=== PATIENT | male | born 1950 | race Caucasian/White ===

== ENCOUNTER 2018-08-12 11:30 | Inpatient (IN) | payer OTHER ==
--- OUTSIDE RECORDS SUMMARY | 2018-08-12 11:32 | XMS REPORT ---
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 Problem Hyperlipidemia, mixed E78.2 Active Assessment History of CVA (cerebrovascular Z86.73 Active accident) without residual deficits Problem Stented coronary artery Z95.5 Active Assessment Peptic ulcer disease K27.9 Active Problem Depression with anxiety F41.8 Active Problem Prediabetes R73.09 Active Problem Peptic ulcer disease K27.9 Active Problem Gout of right ankle, unspecified M10.9 Active cause, unspecified chronicity Problem Atherosclerosis of coronary artery I25.10 Active of [place] heart Assessment Atherosclerosis of coronary artery I25.10 Active of [place] heart Assessment Peripheral vascular disease I73.9 Active Problem Chronic obstructive pulmonary J44.9 Active disease, unspecified COPD type Assessment Tobacco use disorder F17.200 Active Problem Benign essential HTN I10 Active Problem Peripheral vascular disease I73.9 Active Problem Allergic rhinitis J30.9 Active Problem Hypothyroidism E03.9 Active Assessment Hyperlipidemia, mixed E78.2 Active Assessment Benign essential HTN I10 Active Assessment Depression with anxiety F41.8 Active Assessment Hypothyroidism E03.9 Active Problem Tobacco use disorder F17.200 Active Problem History of CVA (cerebrovascular Z86.73 Active accident) without residual deficits Problem 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 Medications Medication Code Code Instructions Start End Status Dosage System Date Date Allopurinol ND 77751079129 300 MG Orally Active 2 tablet Once a day Albuterol Sulfate ND 13434598264 (2.5 MG/3ML) Active 3 ml as 0.083% needed Inhalation Three times a day Zoloft ND 94679879514 50 MG Orally Active 1 tablet Once a day Levothyroxine Sodium [facility] 59993933423 100 MCG Orally Active 1 tablet Once a day on an empty stomach in the morning ProAir HFA [facility] 56315148376 108 (90 Base) Active 2 puffs MCG/ACT as needed Inhalation every 6 hrs Lipitor [facility] 89686166013 80 MG Orally Active 1 tablet Once a day Aspir-81 [facility] 81899710720 81 MG Orally Active 1 tablet Once a day Amlodipine [facility] 52383971282 10-20 MG Active 1 tab Besy-Benazepril HCl Orally once a day Zantac [facility] 21470867785 150 MG Orally Active 1 tablet Once a day at bedtime Hydrochlorothiazide [facility] 98016088484 25 MG Orally Active 1 tablet Once a day in the morning Nexium [facility] 41983806819 40 MG Orally Active 1 capsule Once a day Results No Known Results Summary Purpose eClinicalWorks Submission
[2018-08-12 12:50] LABS: Absolute Lymphocytes (CBC) 0.3 K/uL (0.7-4.9); Absolute Monocytes 0.5 K/uL (0.1-1.3); Absolute Neutrophil 4.4 K/uL (1.8-8.0); Basophils % 0.1 % (0-1.3); Hematocrit 51.6 % (39.6-49.0); Lymphocytes % 5.6 % (15.3-44.8); MPV 9.7 fL (7.6-11.3); Monocytes % 10.3 % (3.3-12.3); RBC Red Blood Cell Count 5.02 M/uL (4.33-5.43)
[2018-08-12 12:57] LABS: Protime INR 1.04
--- NOTE | 2018-08-12 13:00 | RAD REPORT ---
EXAM DESCRIPTION: Sylviat Single View08/12/2018 12:15 pm CLINICAL HISTORY: Chest pain COMPARISON: 2016 FINDINGS: Mild bilateral interstitial lung opacities. The heart is mildly enlarged. Postsurgical changes involve the chest. IMPRESSION: Mild bilateral pulmonary interstitial lung opacities may represent interstitial pulmonar y edema, atypical pneumonia or pneumonitis
[2018-08-12] MEDS ORDERED: METHYLPREDNISOLONE 125 MG INJ ONE (13:11)
[2018-08-12] MEDS ORDERED: ALBUTEROL 2.5 MG/3 ML NEB SOL ONE (13:11)
[2018-08-12] MEDS ORDERED: IPRATROPIUM BROM 0.5MG/2.5ML ONE (13:11)
[2018-08-12] MEDS ORDERED: LEVALBUTEROL 1.25 MG/3 ML NEB ONE (13:12)
[2018-08-12 13:20] LABS: Albumin 3.5 g/dL (3.4-5.0); Bilirubin Direct 0.3 mg/dL (0-0.2); Bilirubin Total 0.5 mg/dL (0.2-1.0); Magnesium 2.4 mg/dL (1.8-2.4); Potassium 4.6 mmol/L (3.5-5.1); Protein, Total 7.6 g/dL (6.4-8.2)
[2018-08-12 13:30] LABS: Troponin (Emerg Dept Use Only) 3.95 ng/mL (0.0-0.045)
[2018-08-12] MEDS ORDERED: Levofloxacin 750mg IV 750 MG/150 ML BAG IV ONE (13:37)
[2018-08-12] MEDS ORDERED: ENOXAPARIN 80 MG/0.8 ML SQ ONE (13:49)
[2018-08-12 14:36] LABS: CKMB Creatine Kinase MB 25.2 ng/mL (0.3-3.6)
[2018-08-12] MEDS ORDERED: ONDANSETRON 4 MG/2 ML VIAL ONE (15:27)
[2018-08-12] MEDS ORDERED: MORPHINE 4 MG/ML SYR ONE (15:27)
[2018-08-12] MEDS ORDERED: HYDROMORPHONE HCL 1 MG/ML INJ ONE (15:34)
[2018-08-12] MEDS ORDERED: NA CHLORIDE 0.9% 1,000 ML ONE (16:02)
[2018-08-12] MEDS ORDERED: FUROSEMIDE 100 MG/10 ML VIAL IV ONE (16:06)
--- NOTE | 2018-08-12 16:56 | ER ---
Nurse's Notes [facility] Name: Javed Sams Age: 68 yrs Sex: Male : 1950 Arrival Date: 08/12/2018 Time: 11:34 Bed 19 Private MD: Diagnosis: Non-ST elevation (NSTEMI) myocardial infarction;Acute on chronic combined systolic (congestive) and diastolic (congestive) heart failure;Chronic obstructive pulmonary disease with (acute) exacerbation Presentation: 08/12 11:42 Presenting complaint: Patient states: chest pain, dizziness, SOB X 2 days. Transition iw of care: patient was not received from another setting of care. Onset of symptoms was August 10, 2018. Risk Assessment: Do you want to hurt yourself or someone else? Patient reports no desire to harm self or others. Initial Sepsis Screen: Does the patient meet any 2 criteria? No. Patient's initial sepsis screen is negative. Does the patient have a suspected source of infection? No. Patient's initial sepsis screen is negative. Care prior to arrival: None. 11:42 Method Of Arrival: Wheelchair iw 11:42 Acuity: LÓPEZ 2 iw Historical: - Allergies: 11:45 NKA; iw - PMHx: 11:45 COPD; Hypertension; iw - PSHx: 11:45 stents; CABG; iw - Immunization history:: Adult Immunizations up to date. - Social history:: Smoking status: Patient uses tobacco products, smokes one pack cigarettes per day. Patient/guardian denies using alcohol, street drugs, The patient lives with family. - Ebola Screening: : Patient negative for fever greater than or equal to 101.5 degrees Fahrenheit, and additional compatible Ebola Virus Disease symptoms Patient denies exposure to infectious person Patient denies travel to an Ebola-affected area in the 21 days before illness onset No symptoms or risks identified at this time. - Family history:: not pertinent. Screenin:00 Abuse screen: Denies threats or abuse. Denies injuries from another. Nutritional sg screening: No deficits noted. Tuberculosis screening: No symptoms or risk factors identified. Never had TB. Fall Risk None identified. Assessment: 12:10 General: Appears in no apparent distress. ill, slender, well groomed, well developed, sg well nourished, Behavior is calm, cooperative, appropriate for age. Pain: Complains of pain in diaphragm Quality of pain is described as aching, sharp, stabbing. Neuro: No deficits noted. Cardiovascular: Capillary refill is brisk in bilateral fingers Patient's skin is warm and dry. Pulses are palpable in right radial artery and left radial artery Chest pain is denied. Cardiovascular: Heart tones S1 S2 present. Respiratory: Airway is patent Respiratory effort is even, unlabored, Respiratory pattern is regular, symmetrical, Breath sounds with crackles Breath sounds with wheezes bilaterally. GI: No signs and/or symptoms were reported involving the gastrointestinal system. : No signs and/or symptoms were reported regarding the genitourinary system. EENT: No signs and/or symptoms were reported regarding the EENT system. Derm: Skin is intact, is healthy with good turgor, Skin is dry, Skin is pale, Skin temperature is warm. Musculoskeletal: No signs and/or symptoms reported regarding the musculoskeletal system. 13:10 Reassessment: Patient appears in no apparent distress at this time. Patient and/or sg family updated on plan of care and expected duration. Pain level reassessed. Patient is alert, oriented x 3, equal unlabored respirations, skin warm/dry/pink. pt RR continues to be elevated, pt placed to BiPap at this time, pt reports having shortness of breath at rest, notified, pt remains on o2 Via NC at 4 lpm, o2 saturation at 97 percent. 14:10 Reassessment: Patient appears in no apparent distress at this time. Patient and/or sg family updated on plan of care and expected duration. Pain level reassessed. Patient is alert, oriented x 3, equal unlabored respirations, skin warm/dry/pink. pt family remains at bedside at this time, pt states he feels slight pain in his diaphragm, pt HOB elevated, pt reports pain decreased Patient denies pain at this time. Patient states feeling better. 15:10 Reassessment: Patient appears in no apparent distress at this time. Patient and/or sg family updated on plan of care and expected duration. Pain level reassessed. Patient is alert, oriented x 3, equal unlabored respirations, skin warm/dry/pink. Patient denies pain at this time. 15:25 Reassessment: Patient appears in no apparent distress at this time. pt reports BiPap sg has made him feel anxious and short of breath, pt removed, BiPap, educated pt on purpose of BiPap, pt stated understanding, continues to refuse to wear the BiPap at this time. 15:30 Reassessment: pt reports pain in diaphragm is note better at this time, requesting sg paint medication, pt states that Morphine IVP causes hallucinations, notified, New orders received, pt medicated, see EMAR. 16:30 Reassessment: Patient appears in no apparent distress at this time. contacted sg for Admission orders, v/o received for NPO after midnight for Cardiac Cath with , pt updated, pt stated understanding, pt provided with turkey and cheese sandwich, pt required no assistance and tolerating well. 17:30 Reassessment: Patient appears in no apparent distress at this time. Patient and/or sg family updated on plan of care and expected duration. Pain level reassessed. Patient is alert, oriented x 3, equal unlabored respirations, skin warm/dry/pink. Patient denies pain at this time. Patient states feeling better. 19:50 General: Appears in no apparent distress. Behavior is calm, cooperative, appropriate ea for age. Pain: Denies pain. Neuro: No deficits noted. Cardiovascular: Heart tones S1 S2 present Patient's skin is warm and dry. Respiratory: Airway is patent Respiratory effort is even, unlabored, Respiratory pattern is regular, symmetrical, Breath sounds are coarse Breath sounds with crackles. GI: No signs and/or symptoms were reported involving the gastrointestinal system. : No signs and/or symptoms were reported regarding the genitourinary system. Derm: Skin is pink, warm \\T\\ dry. 20:59 Reassessment: Patient and/or family updated on plan of care and expected duration. Pain ea level reassessed. Alert and oriented x 4, Pt denies pain at this time, remains on O2 at 4L, respirations tachypneic, continues to refuse bipap, states "I'm ok with the oxygen". Family remains at bedside. 21:53 Reassessment: Patient and/or family updated on plan of care and expected duration. Pain ea level reassessed. Patient is alert, oriented x 3, equal unlabored respirations, skin warm/dry/pink. Remains on 4 L of O2 per NC Patient denies pain at this time. Patient states feeling better. 22:00 Reassessment: Patient and/or family updated on plan of care and expected duration. Pain ea level reassessed. Patient is alert, oriented x 3, equal unlabored respirations, skin warm/dry/pink. Report given to Harris WATTS on third floor ICU. 22:10 Reassessment: Patient and/or family updated on plan of care and expected duration. Pain ea level reassessed. Patient is alert, oriented x 3, equal unlabored respirations, skin warm/dry/pink. Pt taken to ICU via wheelchair per nurse, with O2 at 4L per n/c, pt tolerating well. Vital Signs: 11:45 BP 124 / 72; Pulse 100; Resp 24 S; Temp 98.3(TE); Pulse Ox 73% on R/A; Weight 56.7 kg; iw Height 5 ft. 7 in. (170.18 cm); Pain 3/10; 12:00 Pulse Ox 91% on 4 lpm NC; iw 14:34 BP 113 / 76; Pulse 90; Resp 30; Temp 98.4; Pulse Ox 97% ; mh5 15:50 BP 85 / 73; Pulse 87; Resp 26; Pulse Ox 86% on 4 lpm NC; mh5 16:20 BP 90 / 73; Pulse 77; Resp 28; Temp 97.1; Pulse Ox 92% ; mh5 17:57 BP 99 / 62; Pulse 74; Resp 24; Temp 98.0(TE); Pulse Ox 96% ; wj1 19:30 BP 110 / 70; Pulse 70; Resp 24; Pulse Ox 99% ; ea 20:45 BP 109 / 68; Pulse 68; Resp 23; Pulse Ox 98% on 4 lpm NC; ea 21:50 BP 100 / 65; Pulse 70; Resp 20; Temp 97.8; Pulse Ox 99% on 4 lpm NC; ea 11:45 Body Mass Index 19.58 (56.70 kg, 170.18 cm) iw ED Course: 11:34 Patient arrived in ED. as 11:43 Triage completed. iw 11:45 Arm band placed on. iw 12:06 Bart Carter, RN is Primary Nurse. sg 12:10 Patient has correct armband on for positive identification. Placed in gown. Bed in low sg position. Call light in reach. Side rails up X2. conveyor monitor on. Pulse ox on. NIBP on. Warm blanket given. Head of bed elevated. 12:11 Jarret Hernandez MD is Attending Physician. ma2 12:14 X-ray completed. Portable x-ray completed in exam room. Patient tolerated procedure az well. 12:15 XRAY Chest (1 view) In Process Unspecified. EDMS 12:15 Initial lab(s) drawn, by me, sent to lab. First set of blood cultures drawn by me. sg Inserted saline lock: 22 gauge in right antecubital area, using aseptic technique. Blood collected. 13:00 First set of blood cultures drawn by me. sg 13:15 Second set of blood cultures drawn by me. sg 13:15 Flu and/or RSV swab sent to lab. 15:44 Troponin (emerg Dept Use Only): 3 hrs trop repeat Sent. [facility] 15:44 Influenza Screen (a \\T\\ B) Sent. [facility] 15:44 Repeat lab(s) drawn. by me, sent to lab. [facility] 16:53 Anjelica Chang MD is Hospitalizing Provider. ga2 17:30 Diet: Patient given snack. Tolerated poorly. sg 19:50 Tiera Flores, STEFANIE is Primary Nurse. ea 19:51 No provider procedures requiring assistance completed. Patient admitted, IV remains in ea place. Administered Medications: 13:15 Drug: Xopenex 1.25 mg Route: Inhalation; sg 13:15 Drug: SOLU-Medrol 125 mg Route: IVP; Site: right antecubital; sg 13:15 Drug: AtroVENT Aerosol 0.5 mg Route: Inhalation; sg 13:15 Drug: Albuterol 2.5 mg Route: Inhalation; sg 13:19 Drug: AtroVENT Aerosol 0.5 mg Route: Inhalation; sg 13:20 Drug: AtroVENT Aerosol 0.5 mg Route: Inhalation; sg 13:30 Drug: LevaQUIN 750 mg Volume: 150 ml; Route: IVPB; Infused Over: 90 mins; Site: right sg antecubital; 13:41 Drug: Lovenox 80 mg Route: Sub-Q; Site: right lower abdomen; sg 14:00 Follow up: Response: No adverse reaction sg 15:30 Drug: Zofran 4 mg Route: IVP; Site: right antecubital; sg 16:30 Follow up: Response: No adverse reaction iw 15:35 Not Given (Other Intervention Used): morphine 4 mg IVP once sg 15:37 Drug: Dilaudid 0.5 mg Route: IVP; Site: right antecubital; sg 16:00 Follow up: Response: Adverse reaction, Physician notified sg 16:59 Drug: Aspirin Chewable Tablet 324 mg Route: PO; sg 17:23 Follow up: Response: No adverse reaction sg 17:58 Not Given (Hemodynamic Parameters): Lasix 60 mg IVP once iw 17:58 Not Given (Hemodynamic Parameters): Nitro-Bid Ointment 2 % 1 inches Transdermal once iw Output: 17:40 Urine: 350ml (Voided); Total: 350ml. sg Outcome: 16:54 Decision to Hospitalize by Provider. ma2 19:00 Condition: stable ea 19:00 Instructed on the need for admit. 22:15 Admitted to ICU accompanied by nurse, via wheelchair, room 2, with oxygen, on monitor, ea with chart, Report called to Harris WATTS 22:26 Patient left the ED. ea Signatures: Dispatcher [employer] EDMS Bart Carter, RN STEFANIE sg Nesha Kwong Irene, RN RN Maryam Kwong 5 Tiera Flores RN RN ea Alzahri, Mohammad, MD MD ma2 Johnson, Whitney wMargot Edwards Corrections: (The following items were deleted from the chart) 11:51 11:45 BP 124 / 72; Pulse 100bpm; Resp 24bpm; Spontaneous; Pulse Ox 82% RA; 56.7 kg; iw Height 5 ft. 7 in.; BMI: 19.5; Pain 3/10; iw 13:50 11:45 BP 124 / 72; Pulse 100bpm; Resp 24bpm; Spontaneous; Pulse Ox 73% RA; 56.7 kg; iw Height 5 ft. 7 in.; BMI: 19.5; Pain 3/10; iw
--- NOTE | 2018-08-12 16:56 | EDPHYS ---
Physician Documentation [facility] Name: Javed Sams Age: 68 yrs Sex: Male : 1950 Arrival Date: 08/12/2018 Time: 11:34 Bed 19 Private MD: ED Physician Jarret Hernandez HPI: 08/12 13:03 This 68 yrs old Male presents to ER via Wheelchair with complaints of ma2 Shortness Of Breath. 13:03 The patient has shortness of breath with light activity. Onset: The symptoms/episode ma2 began/occurred gradually, 2 day(s) ago. Duration: The symptoms are continuous. The patient's shortness of breath has no apparent modifying factors. Associated signs and symptoms: Pertinent positives: productive cough, Pertinent negatives: chest pain, hemoptysis, nausea, numbness in extremities, visual changes. Severity of symptoms: At their worst the symptoms were severe in the emergency department the symptoms are unchanged. The patient has not experienced similar symptoms in the past. Historical: - Allergies: 11:45 NKA; iw - PMHx: 11:45 COPD; Hypertension; iw - PSHx: 11:45 stents; CABG; iw - Immunization history:: Adult Immunizations up to date. - Social history:: Smoking status: Patient uses tobacco products, smokes one pack cigarettes per day. Patient/guardian denies using alcohol, street drugs, The patient lives with family. - Ebola Screening: : Patient negative for fever greater than or equal to 101.5 degrees Fahrenheit, and additional compatible Ebola Virus Disease symptoms Patient denies exposure to infectious person Patient denies travel to an Ebola-affected area in the 21 days before illness onset No symptoms or risks identified at this time. - Family history:: not pertinent. ROS: 13:03 Constitutional: Negative for fever, chills, and weight loss, Eyes: Negative for injury, ma2 pain, redness, and discharge. 13:03 Cardiovascular: Negative for chest pain, palpitations, and edema, Abdomen/GI: Negative for abdominal pain, nausea, diarrhea, and constipation, Back: Negative for injury and pain, Endocrine: Negative for neck swelling, polydipsia, polyuria, polyphagia, and marked weight changes. 13:03 Respiratory: Positive for cough, dyspnea on exertion, shortness of breath, wheezing, Negative for hemoptysis, orthopnea. 13:03 All other systems are negative. Exam: 13:03 Chest/axilla: Normal chest wall appearance and motion. Nontender with no deformity. ma2 No lesions are appreciated. Cardiovascular: Regular rate and rhythm with a normal S1 and S2. No gallops, murmurs, or rubs. Normal PMI, no JVD. No pulse deficits. Abdomen/GI: Soft, non-tender, with normal bowel sounds. No distension or tympany. No guarding or rebound. No evidence of tenderness throughout. MS/ Extremity: Pulses equal, no cyanosis. Neurovascular intact. Full, normal range of motion. Neuro: Awake and alert, GCS 15, oriented to person, place, time, and situation. Cranial nerves II-XII grossly intact. Motor strength 5/5 in all extremities. Sensory grossly intact. Cerebellar exam normal. Normal gait. 13:03 Constitutional: The patient appears in obvious distress, moderately distressed. 13:03 Respiratory: moderate respiratory distress is noted, Respirations: labored breathing, Breath sounds: rhonchi, wheezing: Respiratory rate: 20 Vital Signs: 11:45 BP 124 / 72; Pulse 100; Resp 24 S; Temp 98.3(TE); Pulse Ox 73% on R/A; Weight 56.7 kg; iw Height 5 ft. 7 in. (170.18 cm); Pain 3/10; 12:00 Pulse Ox 91% on 4 lpm NC; iw 14:34 BP 113 / 76; Pulse 90; Resp 30; Temp 98.4; Pulse Ox 97% ; mh5 15:50 BP 85 / 73; Pulse 87; Resp 26; Pulse Ox 86% on 4 lpm NC; mh5 16:20 BP 90 / 73; Pulse 77; Resp 28; Temp 97.1; Pulse Ox 92% ; mh5 17:57 BP 99 / 62; Pulse 74; Resp 24; Temp 98.0(TE); Pulse Ox 96% ; wj1 19:30 BP 110 / 70; Pulse 70; Resp 24; Pulse Ox 99% ; ea 20:45 BP 109 / 68; Pulse 68; Resp 23; Pulse Ox 98% on 4 lpm NC; ea 21:50 BP 100 / 65; Pulse 70; Resp 20; Temp 97.8; Pulse Ox 99% on 4 lpm NC; ea 11:45 Body Mass Index 19.58 (56.70 kg, 170.18 cm) MDM: 12:11 Patient medically screened. ma2 13:03 Differential diagnosis: Anemia asthma, Chronic Obstructive Pulmonary Disease pneumonia, ma2 Pneumothorax pulmonary edema, reactive airway disease, Sepsis. Antibiotic administration: The patient is discharged and will get outpatient antibiotics. 14:14 Data reviewed: vital signs, nurses notes, diagnostic data from outside facility, lab ma2 test result(s), EKG, radiologic studies. ED course: patient has NSTEMI with trop of 4, EKG does not show STEMI, given he had triple CABG many yrs ago and stents.. he will likely need emergent cath.. educational recruiter dr. Jefferson histology assistant paged.. BNP is elevated to 5K CXR w pulmonary edema.. . 16:49 Counseling: I had a detailed discussion with the patient and/or guardian regarding: the ma2 historical points, exam findings, and any diagnostic results supporting the discharge/admit diagnosis, the presence of at least one elevated blood pressure reading (>120/80) during this emergency department visit, the need for further work-up and treatment in the hospital. ED course: discussed with dr. mason who recommend admit for possible cath tomorrow.. discussed with dr. thakkar . 08/12 12:05 Order name: Basic Metabolic Panel; Complete Time: 14:00 08/12 12:05 Order name: CBC with Diff; Complete Time: 13:02 08/12 12:05 Order name: LFT's; Complete Time: 14:00 08/12 12:05 Order name: Magnesium; Complete Time: 14:00 08/12 12:05 Order name: NT PRO-BNP; Complete Time: 14:00 08/12 12:05 Order name: PT-INR; Complete Time: 14:00 08/12 12:05 Order name: Troponin (emerg Dept Use Only); Complete Time: 14:00 08/12 12:45 Order name: Blood Culture Adult (2) ma2 08/12 12:45 Order name: Ckmb; Complete Time: 14:45 [facility] 08/12 12:45 Order name: CPK; Complete Time: 14:45 [facility] 08/12 12:45 Order name: D-Dimer; Complete Time: 14:45 [facility] 08/12 12:45 Order name: Lipase; Complete Time: 14:45 [facility] 08/12 12:45 Order name: Ptt, Activated; Complete Time: 14:45 [facility] 08/12 12:52 Order name: Flu; Complete Time: 14:45 [facility] 08/12 12:05 Order name: XRAY Chest (1 view); Complete Time: 13:02 08/12 14:09 Order name: Influenza Screen (a \T\ B) [facility] 08/12 14:46 Order name: Troponin (emerg Dept Use Only): 3 hrs trop repeat [facility] 08/12 20:24 Order name: Procalcitonin [facility] 08/12 20:59 Order name: Troponin I [facility] 08/12 12:05 Order name: EKG; Complete Time: 12:06 08/12 12:05 Order name: Cardiac monitoring; Complete Time: 13:38 08/12 12:05 Order name: EKG - Nurse/Tech; Complete Time: 13:38 08/12 12:05 Order name: IV Saline Lock; Complete Time: 13:38 08/12 12:05 Order name: Labs collected and sent; Complete Time: 13:38 08/12 12:05 Order name: O2 Per Protocol; Complete Time: 13:38 08/12 12:05 Order name: O2 Sat Monitoring; Complete Time: 13:38 08/12 13:34 Order name: EKG - Nurse/Tech; Complete Time: 13:41 [facility] 08/12 13:41 Order name: EKG; Complete Time: 13:42 08/12 17:20 Order name: CONS Physician Consult [facility] Administered Medications: 13:15 Drug: Xopenex 1.25 mg Route: Inhalation; sg 13:15 Drug: SOLU-Medrol 125 mg Route: IVP; Site: right antecubital; sg 13:15 Drug: AtroVENT Aerosol 0.5 mg Route: Inhalation; sg 13:15 Drug: Albuterol 2.5 mg Route: Inhalation; sg 13:19 Drug: AtroVENT Aerosol 0.5 mg Route: Inhalation; sg 13:20 Drug: AtroVENT Aerosol 0.5 mg Route: Inhalation; sg 13:30 Drug: LevaQUIN 750 mg Volume: 150 ml; Route: IVPB; Infused Over: 90 mins; Site: right sg antecubital; 13:41 Drug: Lovenox 80 mg Route: Sub-Q; Site: right lower abdomen; sg 14:00 Follow up: Response: No adverse reaction sg 15:30 Drug: Zofran 4 mg Route: IVP; Site: right antecubital; sg 16:30 Follow up: Response: No adverse reaction iw 15:35 Not Given (Other Intervention Used): morphine 4 mg IVP once sg 15:37 Drug: Dilaudid 0.5 mg Route: IVP; Site: right antecubital; sg 16:00 Follow up: Response: Adverse reaction, Physician notified sg 16:59 Drug: Aspirin Chewable Tablet 324 mg Route: PO; sg 17:23 Follow up: Response: No adverse reaction sg 17:58 Not Given (Hemodynamic Parameters): Lasix 60 mg IVP once iw 17:58 Not Given (Hemodynamic Parameters): Nitro-Bid Ointment 2 % 1 inches Transdermal once iw Disposition: 08/12/18 16:54 Hospitalization ordered by Anjelica Thakkar for Inpatient Admission. Preliminary diagnosis are Non-ST elevation (NSTEMI) myocardial infarction, Acute on chronic combined systolic (congestive) and diastolic (congestive) heart failure, Chronic obstructive pulmonary disease with (acute) exacerbation. - Bed requested for Intensive Care Unit. - Status is Inpatient Admission. ea - Condition is Guarded. - Problem is chronic. - Symptoms have worsened. UTI on Admission? No Signatures: Dispatcher [employer] EDBart De La Torre RN RN Ct Farrell RN RN iw Solis, Maria ms Antunez, Elena, RN RN ea Alzahri, Mohammad, MD MD ma2 Corrections: (The following items were deleted from the chart) 19:26 16:54 Hospitalization Ordered by Anjelica Thakkar MD for Inpatient Admission. Preliminary ms diagnosis is Non-ST elevation (NSTEMI) myocardial infarction; Acute on chronic combined systolic (congestive) and diastolic (congestive) heart failure; Chronic obstructive pulmonary disease with (acute) exacerbation. Bed requested for Telemetry/MedSurg (Inpatient). Status is Inpatient Admission. Condition is Guarded. Problem is chronic. Symptoms have worsened. UTI on Admission? No. ma2 22:26 19:26 08/12/2018 16:54 Hospitalization Ordered by Anjelica Thakkar MD for Inpatient ea Admission. Preliminary diagnosis is Non-ST elevation (NSTEMI) myocardial infarction; Acute on chronic combined systolic (congestive) and diastolic (congestive) heart failure; Chronic obstructive pulmonary disease with (acute) exacerbation. Bed requested for Intensive Care Unit. Status is Inpatient Admission. Condition is Guarded. Problem is chronic. Symptoms have worsened. UTI on Admission? No. ms
[2018-08-12] MEDS ORDERED: ASPIRIN 81 MG CHEWABLE TABLET ONE (17:11)
--- NOTE | 2018-08-12 17:36 | P.HP ---
Certification for Inpatient Patient admitted to: Inpatient With expected LOS: >2 Midnights Patient will require the following post-hospital care: None Practitioner: I am a practitioner with admitting privileges, knowledge of patient current condition, hospital course, and medical plan of care. Services: Services provided to patient in accordance with Admission requirements found in Title 42 Section 412.3 of the Code of Federal Regulations Patient History Date of Service: 08/12/18 Primary Care Provider: Dr Frank Chang Reason for admission: NSTEMI History of Present Illness: 68 Y/o M with pmhx of COPD, HTN, CAD with CABG in 2016 and stent placement presenting to the ED for SOB and dizziness for past 3 days that is getting progressively worse. Current Everyday smoker. States she noticed she has been having increase SOB with Excretion and unable to lay flat at night. Uses 2 pillows at night time. Has been using inhalers but no improvement. Denies any chest pain, n/V or Fever. Denies any Sick contacts. last Cath was done in 2015 which was + for 3 vessel disease and patient was transfered to for CABG. No other complains. In the ER pt was found to have NSTEMI with elevated Troponin and CHF with elevated BNP and thus was admitted for further workup and treatment. Allergies No Known Allergies Allergy (Verified 09/21/15 13:31) Home medications list reviewed: Yes - Past Medical/Surgical History Has patient received pneumonia vaccine in the past: No -: HTN -: COPD -: CAD with CABG and stent -: CABG -: Stents - Family History Family History: Reviewed- Non-Contributory - Social History Smoking Status: Current every day smoker Counseled patient to stop smoking for: more than 10 minutes Smoking therapy provided: Yes Patient receptive to therapy: No Alcohol use: No CD- Drugs: No Caffeine use: No Place of Residence: Home Review of Systems 10-point ROS is otherwise unremarkable Physical Examination - Physical Exam General: Alert, In no apparent distress HEENT: Atraumatic, PERRLA, Mucous membr. moist/pink, EOMI, Sclerae nonicteric Neck: Supple, 2+ carotid pulse no bruit, No LAD, Without JVD or thyroid abnormality Respiratory: Normal air movement, Expiratory wheezes, Inspiratory wheezes Cardiovascular: Regular rate/rhythm, Normal S1 S2 Gastrointestinal: Normal bowel sounds, No tenderness Musculoskeletal: No tenderness Integumentary: No rashes Neurological: Normal gait, Normal speech, Normal strength at 5/5 x4 extr, Normal tone, Normal affect Lymphatics: No axilla or inguinal lymphadenopathy - Studies Laboratory Data (last 24 hrs) 08/12/18 13:30: APTT 28.3 08/12/18 13:30: Lipase 89 08/12/18 12:35: PT 12.3, INR 1.04 08/12/18 12:35: WBC 5.2, Hgb 18.0 H, Hct 51.6 H, Plt Count 112 L 08/12/18 12:35: Sodium 136, Potassium 4.6, BUN 25 H, Creatinine 0.88, Glucose 160 H, Magnesium 2.4, Total Bilirubin 0.5, AST 77 H, ALT 32, Alkaline Phosphatase 112 Microbiology Data (last 24 hrs): 08/12/18 13:15 Nasopharnyx Influenza Type A Antigen Screen - Final 08/12/18 13:15 Nasopharnyx Influenza Type B Antigen Screen - Final Assessment and Plan - Problems (Diagnosis) (1) NSTEMI (non-ST elevated myocardial infarction) Current Visit: Yes Status: Acute Plan: NSTEMI with elevated Troponin of 3.[address] in [address] ER[address] No [address] elevation on the ekg -Troponin x 3 and cardiac Tele -Cardiology consulted. Reccs Appreciated -Cath cain AM -Started on BB, MIGUEL inhibitor, statin and WB lovenox -Will keep NPO after midnight. -Admit to ICU for further close monitoring. (2) CHF (congestive heart failure) Current Visit: Yes Status: Acute Plan: Acute CHF exacerbation -last ECHO unknown -IV lasix 40mg for now -ECHO ordered -Most likely 2.2 to CAD Qualifiers: Heart failure type: unspecified Heart failure chronicity: acute Qualified Code(s): I50.9 - Heart failure, unspecified (3) COPD exacerbation Current Visit: Yes Status: Acute Plan: COPD exacerbation most likely 2.2 to cardiac event vs Infection -Duonebs, steriods and Oxygen for now (4) HTN (hypertension) Current Visit: Yes Status: Chronic Plan: Restart Home medication Qualifiers: Hypertension type: essential hypertension Qualified Code(s): I10 - Essential (primary) hypertension (5) CAD (coronary artery disease) Current Visit: Yes Status: Chronic Plan: CAD with CABG in 2016 -Restart on CAD medication -Cardiology consulted. Qualifiers: Coronary Disease-Associated Artery/Lesion type: [place] artery [place] vs. transplanted heart: [place] heart Associated angina: without angina Qualified Code(s): I25.10 - Atherosclerotic heart disease of [place] coronary artery without angina pectoris Discharge Plan: Other Plan to discharge in: 72 Hours - Advance Directives Does patient have a Living Will: No Does patient have a Durable POA for Healthcare: Yes - Code Status/Comfort Care Code Status Assessed: Yes Critical Care: Yes
[2018-08-12] MEDS ORDERED: ONDANSETRON 4 MG/2 ML VIAL IV PRN (19:30)
[2018-08-12] MEDS ORDERED: ACETAMINOPHEN 500 MG TAB PO PRN (19:30)
[2018-08-12] MEDS: IPRATROPIUM BROM 0.5MG/2.5ML NEB SCH (20:00)
[2018-08-12] MEDS: ALBUTEROL 2.5 MG/3 ML NEB SOL NEB SCH (20:00)
[2018-08-12] MEDS ORDERED: ENOXAPARIN 100 MG/ML SYR SQ SCH (21:00)
[2018-08-12] MEDS ORDERED: ATORVASTATIN 20 MG TAB PO SCH (21:00)
[2018-08-13] MEDS: IPRATROPIUM BROM 0.5MG/2.5ML NEB SCH ×3 (02:00→14:00)
[2018-08-13] MEDS: ALBUTEROL 2.5 MG/3 ML NEB SOL NEB SCH ×3 (02:00→14:00)
[2018-08-13 06:08] LABS: Absolute Lymphocytes (CBC) 0.5 K/uL (0.7-4.9); Absolute Monocytes 0.7 K/uL (0.1-1.3); Absolute Neutrophil 3.7 K/uL (1.8-8.0); Basophils % 0.4 % (0-1.3); Eosinophils % 0.1 % (0-4.4); Hematocrit 47.5 % (39.6-49.0); Lymphocytes % 9.5 % (15.3-44.8); MPV 9.6 fL (7.6-11.3); Monocytes % 14.7 % (3.3-12.3); RBC Red Blood Cell Count 4.58 M/uL (4.33-5.43)
[2018-08-13 06:21] LABS: Bilirubin Total 0.4 mg/dL (0.2-1.0); Magnesium 2.3 mg/dL (1.8-2.4); Phosphorus 2.7 mg/dL (2.5-4.9); Potassium 5.1 mmol/L (3.5-5.1); Protein, Total 6.6 g/dL (6.4-8.2)
[2018-08-13 06:25] LABS: Troponin I 3.52 ng/mL (0.0-0.045)
[2018-08-13] MEDS: METOPROLOL TAR 25 MG TAB PO SCH (07:54)
[2018-08-13] MEDS: ENOXAPARIN 60 MG/0.6 ML SQ SCH ×2 (07:55→20:00)
[2018-08-13] MEDS: ASPIRIN 81 MG CHEWABLE TABLET PO SCH (07:55)
[2018-08-13] MEDS: LISINOPRIL 5 MG TAB PO SCH (07:55)
[2018-08-13] MEDS ORDERED: Levofloxacin500mg IV 500 MG/100 ML BAG IV SCH (09:00)
[2018-08-13] MEDS ORDERED: FUROSEMIDE 20 MG/ 2ML VIAL IV SCH (09:00)
[2018-08-13] MEDS ORDERED: NICOTINE 21 MG/PAT TD PRN (09:39)
[2018-08-13] MEDS ORDERED: HEPA 1000U/500MLS 1,000 UNIT/500 ML BAG IV ONE ×2 (12:03→12:08)
[2018-08-13] MEDS ORDERED: LIDOCAINE 1% MPF 30 ML VIAL ONE (12:03)
[2018-08-13 12:17] LABS: Urine Appearance CLEAR; Urine Bilirubin NEGATIVE (NEG); Urine Blood NEGATIVE (NEG); Urine Color YELLOW; Urine Glucose NEGATIVE (NEG); Urine Protein NEGATIVE (NEG); Urine Specific Gravity 1.015 (1.005-1.030)
[2018-08-13 12:23] LABS: Urine Microscopic Reflex NO UMIC
[2018-08-13] MEDS ORDERED: NA CHLORIDE 0.9% 500 ML ONE (12:42)
[2018-08-13] MEDS ORDERED: MIDAZOLAM HCL 2 MG/2 ML INJ ONE ×2 (12:54→13:00)
[2018-08-13] MEDS ORDERED: FENTANYL CITR 100 MCG/2 ML ONE (12:54)
[2018-08-13] MEDS ORDERED: ATROPINE SULF 1 MG/10 ML SYR IV ONE (12:54)
[2018-08-13] MEDS ORDERED: NA CHLORIDE 0.9% 0 ML ONE (12:55)
[2018-08-13] MEDS ORDERED: FLUMAZENIL 0.1 MG/ML (5 mL VIAL) IV ONE (13:08)
--- NOTE | 2018-08-13 14:24 | P.PN ---
Subjective Date of Service: 08/13/18 Primary Care Provider: Dr Frank Chang Chief Complaint: NSTEMI Subjective: Other (Patient stable this time. Patient NPO for heart catheterization.) Physical Examination - Vital Signs Temperature: 97.5 F Blood Pressure: 105/66 Pulse: 74 Respirations: 20 Pulse Ox (%): 98 - Physical Exam General: Alert, In no apparent distress, Oriented x3, Cooperative HEENT: Atraumatic Neck: Supple Respiratory: Clear to auscultation bilaterally, Normal air movement Cardiovascular: Normal pulses, Regular rate/rhythm Gastrointestinal: Normal bowel sounds, Soft and benign, Non-distended, No tenderness, No masses, No rebound, No guarding Musculoskeletal: No erythema, No tenderness, No warmth Integumentary: No tenderness/swelling, No erythema, No warmth, No cyanosis Neurological: Normal speech, Normal strength at 5/5 x4 extr, Normal tone - Studies Laboratory Data (last 24 hrs) 08/12/18 13:30: Lipase 89 Microbiology Data (last 24 hrs): 08/12/18 13:15 Nasopharnyx Influenza Type A Antigen Screen - Final 08/12/18 13:15 Nasopharnyx Influenza Type B Antigen Screen - Final Medications List Reviewed: Yes Assessment & Plan Discharge Plan: Home Plan to discharge in: Greater than 2 days Physician Review Additional Text: Impression: Non ST wave [place] with history of CAD complicated with possible underlying acute on chronic systolic CHF Hypertension COPD, chronic Hyperlipidemia Hypothyroidism GERD Plan: Non ST wave [place] with history of CAD complicated with possible underlying acute on chronic systolic CHF: Patient currently NPO at this time. Patient to have heart catheterization today. Patient on aspirin, statin medication, and beta- angela therapy. Patient also on Lovenox. Await further recommendations from cardiology. Will continue with Lasix orally. Will monitor lab and chest x- ray. Will maintain sats above 90%. Hypertension: Continue with current blood pressure medication. Will monitor and adjust appropriately. COPD, chronic: Currently stable this time. Will continue with COPD medication- Brovana, albuterol and Atrovent. Will maintain sats above 90%. Will wean off oxygen. Hyperlipidemia: Will continue with Lipitor 80 mg daily. Hypothyroidism: Will continue with levothyroxine 100 mcg daily. GERD: Continue with PPI. Time Spent Managing Pts Care (In Minutes): 55
--- NOTE | 2018-08-13 14:38 | EKG ---
Test Date: 2018-08-12 Test Time: 13:36:32 Special Education Director: JINNY MEASUREMENT RESULTS: Intervals: Rate: 95 CT: 128 QRSD: 94 QT: 334 QTc: 419 [place]: P: 81 CT: 128 QRS: 95 T: -68 INTERPRETIVE STATEMENTS: Normal sinus rhythm Rightward axis Cannot rule out Inferior infarct, age undetermined ST & T wave abnormality, consider anterolateral ischemia Abnormal ECG Compared to ECG 08/12/2018 12:19:57 Atrial fibrillation no longer present Ventricular premature complex(es) no longer present Myocardial infarct finding still present ST (T wave) deviation still present Possible ischemia still present Electronically Signed On 08-13-18 14:36:06 SALES ENABLEMENT LEAD by William Jefferson
--- NOTE | 2018-08-13 14:38 | EKG ---
Test Date: 2018-08-12 Test Time: 12:19:57 Nutrition Helper: SWG MEASUREMENT RESULTS: Intervals: Rate: 91 [place]: QRSD: 92 QT: 358 QTc: 440 [place]: P: [place]: QRS: 93 T: -73 INTERPRETIVE STATEMENTS: nsr/pvc Rightward axis Cannot rule out Inferior infarct, age undetermined ST & T wave abnormality, consider lateral ischemia Abnormal ECG Compared to ECG 11/06/2007 08:01:26 Ventricular premature complex(es) now present Right-axis deviation now present Myocardial infarct finding now present ST (T wave) deviation now present Possible ischemia now present Sinus bradycardia no longer present Sinus arrhythmia no longer present Electronically Signed On 08-13-18 14:36:40 ROCK MASON APPRENTICE by William Jefferson
[2018-08-13] MEDS ORDERED: NA CHLORIDE 0.9% 1,000 ML IV SCH (15:00)
[2018-08-13] MEDS ORDERED: NITROGLYCERIN 0.4 MG/TAB SL PRN (15:00)
[2018-08-13] MEDS ORDERED: ACETAMINOPHEN 325 MG TABLET PO PRN (15:00)
--- NOTE | 2018-08-13 15:10 | ECHO ---
HEIGHT: 5 ft 7 in WEIGHT: 123 lb 1.6 oz DATE OF STUDY: 08/13/[address]: Anjelica Chang MD 2-DIMENSIONAL: YES M.MODE: YES DOPPLER: YES COLOR FLOW: YES TDS: NO PORTABLE: YES DEFINITY: NO BUBBLE STUDY: NO DIAGNOSIS: NSTEMI CARDIAC HISTORY: CATHERIZATION: YES SURGERY: YES PROSTHETIC VALVE: NO PACEMAKER: NO MEASUREMENTS (cm) DIASTOLIC (NORMALS) SYSTOLIC (NORMALS) IVSd 0.9 (0.6-1.2) LA Diam 2.9 (1.9-4.0) LVEF 45-50% LVIDd 5.0 (3.5-5.7) LVIDs 3.7 (2.0-3.5) %FS 26% LVPWd 1.1 (0.6-1.2) Ao Diam 2.8 (2.0-3.7) 2 DIMENSIONAL ASSESSMENT: RIGHT ATRIUM: NORMAL LEFT ATRIUM: NORMAL RIGHT VENTRICLE: NORMAL LEFT VENTRICLE: NORMAL TRICUSPID VALVE: NORMAL MITRAL VALVE: MITRAL ANNULAR CALCIFICATION PULMONIC VALVE: NORMAL AORTIC VALVE: STENOTIC PERICARDIAL EFFUSION: NONE AORTIC ROOT: NORMAL LEFT VENTRICULAR WALL MOTION: MILD GLOBAL HYPOKINESIS. DOPPLER/COLOR FLOW: MILD TRICUSPID REGURGITATION. NORMAL RIGHT VENTRICULAR SYSTOLIC PRESSURE. MILD AORTIC STENOSIS. AORTIC VALVE AREA 1.7 CENTIMETERS SQUARED. COMMENTS: MILD TRICUSPID REGURGITATION. NORMAL RIGHT VENTRICULAR SYSTOLIC PRESSURE. MILD GLOBAL HYPOKINESIS. LEFT VENTRICULAR EJECTION FRACTION 45-50%. MILD AORTIC STENOSIS. AORTIC VALVE AREA 1.7 CENTIMETERS SQUARED. MITRAL ANNULAR CALCIFICATION. TECHNOLOGIST: Kanchan ASKEW
--- NOTE | 2018-08-13 19:24 | CON ---
Date of Consultation: 08/12/2018 Reason For Consultation: Non-ST elevation myocardial infarction. History Of Present Illness: Mr. Sams is a 68-year-old white man. He is known to me from previous office visits and admissions. In 2016, he underwent a CABG x3 to the LAD, circumflex, and RCA camon mehul to severe coronary artery disease. He came back to the emergency room with severe shortness of breath and dyspnea on exertion. No chest pain, nausea, vomiting, diaphoresis, palpitations, or synco pe. He was found to have a troponin of 4.6. His BNP was 5432. D-dimer was 942. His chest x-ray sh owed pulmonary edema versus infiltrate versus pneumonitis. Past Medical History: Include CABG, COPD, hypertension. Allergies: NONE. Review of Systems: Negative. Social History: Negative for drugs or alcohol. Positive for tobacco and he still smokes. Medications: Include aspirin, Lipitor, and inhalers. Physical Examination: General: Mr. Sams appears much older than his stated age. Vital Signs: Stable. He was in normal rhythm with multiple PACs. He was afebrile. HEENT: Negative. Neck: Supple without any bruit, lymphadenopathy, JVD, or thyromegaly. Chest: Wheezing on expiration and bilateral rales. Cardiac: Revealed a regular rhythm and rate without any murmurs, gallops, or rubs. Abdomen: Benign. Extremities: Revealed no clubbing, cyanosis, or edema. Diagnostic Data: As stated earlier. Impression And Plan: The patient with history of coronary artery disease, status post coronary arter y bypass graft x3. He continues to smoke, probably noncompliant with his medications as well. Came in with shortness of breath and very elevated troponin. We will plan a heart catheterization in the morning to define his coronary anatomy. He understand the risks and the benefits of the procedure an d he agrees to proceed. We will continue present regimen. Hold Lovenox 12 hours prior to the proced ure. His other problems include chronic obstructive pulmonary disease exacerbation and hypertension seems to be stable at this point. We will continue his present regimen. ANTHONY/DANNY Voice ID: [id number] Report ID: [id number]
[2018-08-13] MEDS: ALBUTEROL 2.5 MG/3 ML NEB SOL NEB PRN (19:45)
[2018-08-13] MEDS: ARFORMOTEROL TARTRATE 15 MCG/2 ML VIAL.NEB NEB SCH (19:45)
[2018-08-13] MEDS: IPRATROPIUM BROM 0.5MG/2.5ML NEB PRN (19:45)
[2018-08-13] MEDS: ATORVASTATIN 80 MG TAB PO SCH (20:00)
--- NOTE | 2018-08-13 20:09 | OP ---
Date of Procedure: 08/13/2018 Surgeon: William Jefferson MD Occupational Health And Safety Adviser: Dl Gates. Total conscious sedation was 45 minutes. Case will be discussed with Dr. Chang and the family. Procedures: Left heart catheterization, selective coronary arteriogram, left ventriculogram, injecti on of the left internal mammary artery and injection of saphenous vein graft to the right coronary ar richy and obtuse marginal. Indication: Unstable angina with non-ST elevation myocardial infarction. Mr. Sams is 68, has a history of COPD, tobacco use, hypertension, coronary artery disease status p ost CABG 2 years ago, has done well. Came in with severe shortness of breath, was noted to have an e levated troponin. An echocardiogram is pending. Procedure In Detail: He was brought into the can labeler today for catheterization. He was sedated ini tially with 3 mg of Versed, but he became hypoxic. This was reversed with re-Versed. O2 saturation went up to 100% after non-rebreather. The patient awake. 6-Danish catheters and sheath were used to do the catheterization. 6-Danish sheath introduced in the right common femoral artery. Angiogram t here was normal. Angio-Seal was used to close the case. 6-Danish catheters were used, left Keira and right Keira initially to do the injection for the left main and the right main. We had to use a 3DRC catheter to cannulate the SVG to the OM1 and OM2. The patient had 100% left main, severe, and 100% occlusion of the circumflex, 100% occlusion of the RCA. His JOVEL was occluded. His vein graft to the OM1, OM2 was patent, but the OM1, OM2 distally were very small. The vein graft to the RCA wa s occluded. He was noted to have an 80% stenosis of the left subclavian artery. There were no compl ications. Blood Loss: 5 cc. Postoperative Diagnosis: Severe inoperable coronary artery disease. Plan: For medical therapy. ANTHONY/DANNY Voice ID: [id number] Report ID: [id number]
[2018-08-13] MEDS ORDERED: METHYLPREDNISOLONE 125 MG INJ IV STA (20:38)
[2018-08-13] MEDS ORDERED: METHYLPREDNISOLONE 125 MG INJ ONE (20:45)
[2018-08-13] MEDS: SERTRALINE HCL 50 MG TAB PO SCH (21:32)
[2018-08-14 05:03] LABS: Absolute Lymphocytes (CBC) 0.5 K/uL (0.7-4.9); Absolute Monocytes 0.2 K/uL (0.1-1.3); Absolute Neutrophil 5.2 K/uL (1.8-8.0); Basophils % 0.2 % (0-1.3); Hematocrit 51.2 % (39.6-49.0); Lymphocytes % 8.8 % (15.3-44.8); MPV 9.7 fL (7.6-11.3); Monocytes % 3.8 % (3.3-12.3); RBC Red Blood Cell Count 4.95 M/uL (4.33-5.43)
[2018-08-14 05:31] LABS: Albumin 3.1 g/dL (3.4-5.0); Bilirubin Total 0.5 mg/dL (0.2-1.0); Magnesium 2.6 mg/dL (1.8-2.4); Protein, Total 6.9 g/dL (6.4-8.2)
[2018-08-14] MEDS: PANTOPRAZOLE 40MG TABLET PO SCH (05:44)
[2018-08-14] MEDS: METOPROLOL TAR 25 MG TAB PO SCH (05:44)
[2018-08-14] MEDS: LEVOTHYROXINE SOD 0.1 MG TAB PO SCH (05:44)
[2018-08-14] MEDS: ARFORMOTEROL TARTRATE 15 MCG/2 ML VIAL.NEB NEB SCH ×2 (07:44→20:00)
[2018-08-14] MEDS: IPRATROPIUM BROM 0.5MG/2.5ML NEB PRN ×3 (07:44→20:17)
[2018-08-14] MEDS: ASPIRIN 81 MG CHEWABLE TABLET PO SCH (08:45)
[2018-08-14] MEDS: ALLOPURINOL 300 MG TAB PO SCH (08:46)
[2018-08-14] MEDS: SERTRALINE HCL 50 MG TAB PO SCH (08:46)
[2018-08-14] MEDS: LISINOPRIL 5 MG TAB PO SCH (08:46)
[2018-08-14] MEDS: FUROSEMIDE 40 MG TABLET PO SCH (08:46)
[2018-08-14] MEDS: ENOXAPARIN 60 MG/0.6 ML SQ SCH ×2 (08:47→20:04)
[2018-08-14] MEDS ORDERED: SERTRALINE HCL 50 MG TAB PO SCH (09:00)
--- NOTE | 2018-08-14 09:17 | RAD REPORT ---
EXAM DESCRIPTION: Sylviat Single View08/14/2018 7:25 am CLINICAL HISTORY: Shortness of breath COMPARISON: August 12, 2018 FINDINGS: Mild bilateral interstitial lung opacities have partially resolved. No other change is noted IMPRESSION: Partial resolution in mild bilateral interstitial lung opacities
--- NOTE | 2018-08-14 13:22 | PN ---
Mr. Sams just had a heart catheterization done because of unstable angina, elevated troponin, shor tness of breath, and history of coronary artery disease. He was found to have severe inoperable vitaliy nary artery disease. He had an occluded JOVEL to the LAD, he had an occluded LAD, he had an occluded saphenous vein graft to the RCA as well as [place] RCA. He had a patent OM graft to the to the OM, bu t the distal vessels are small diffusely diseased, not a candidate for other surgery. He was placed on Ranexa 500 mg 1 p.o. b.i.d. He has not had any more chest pain or shortness of breath. He can go home whenever it is okay with his primary care physician. I will see him in the office as an outpat ient. The family is aware of the severity of his conditions. SAVITA Voice ID: [id number] Report ID: [id number]
--- NOTE | 2018-08-14 14:10 | P.PN ---
Subjective Date of Service: 08/14/18 Primary Care Provider: Dr Frank Chang Chief Complaint: NSTEMI Subjective: Other (Patient doing fair at this time. No complaints noted.) Physical Examination - Vital Signs Temperature: 96.9 F Blood Pressure: 110/55 Pulse: 63 Respirations: 18 Pulse Ox (%): 93 - Physical Exam General: Alert, In no apparent distress, Oriented x3, Cooperative HEENT: Atraumatic Neck: Supple Respiratory: Clear to auscultation bilaterally (Anteriorly), Diminished ( Posteriorly to the lower base) Cardiovascular: Normal pulses, Regular rate/rhythm Gastrointestinal: Normal bowel sounds, Soft and benign, Non-distended, No tenderness, No masses, No rebound, No guarding Musculoskeletal: No erythema, No tenderness, No warmth Integumentary: No tenderness/swelling, No erythema, No warmth, No cyanosis Neurological: Normal speech, Normal strength at 5/5 x4 extr, Normal tone - Studies Medications List Reviewed: Yes Assessment & Plan Discharge Plan: Other (nursing home facility) Plan to discharge in: 24 Hours Physician Review Additional Text: Impression: Unstable angina with Non ST wave [place] with history of CAD complicated with mild aortic stenosis and acute on chronic systolic CHF status post heart catheterization with findings of severe inoperable Coronary artery disease Hypertension COPD, chronic Hyperlipidemia Hypothyroidism GERD Plan: Unstable angina with Non ST wave [place] with history of CAD complicated with mild aortic stenosis and acute on chronic systolic CHF status post heart catheterization showing inoperable severe CAD: Patient had heart catheterization done yesterday. Case discussed at length with cardiology. Patient found to have severe inoperable Coronary artery disease. Patient had occluded JOVEL to the LAD, occluded LAD, occluded saphenous graft to the RCA as well as [place] RCA. He also had patent OM graft to the OM, but vessels were diffusely diseased. Cardiology recommends medical therapy. Patient continue with aspirin, statin medication in beta-angela therapy. Patient will also continue with Ranexa twice daily. Case discussed at length with patient. Patient understands this in detail. This was also discussed by Cardiology to family. Will recommend skilled placement. Patient agrees. Will have social economist assess patient for skilled placement. Hypertension: Continue with current blood pressure medication. Will monitor and adjust appropriately. COPD, chronic: Currently stable this time. Will continue with COPD medication- Brovana, albuterol and Atrovent. Will maintain sats above 90%. Will wean off oxygen. Hyperlipidemia: Will continue with Lipitor 80 mg daily. Hypothyroidism: Will continue with levothyroxine 100 mcg daily. GERD: Continue with PPI. Time Spent Managing Pts Care (In Minutes): 55
[2018-08-14] MEDS: ALBUTEROL 2.5 MG/3 ML NEB SOL NEB PRN (16:00)
[2018-08-14] MEDS: ATORVASTATIN 80 MG TAB PO SCH (20:03)
[2018-08-15] MEDS: LEVOTHYROXINE SOD 0.1 MG TAB PO SCH (05:42)
[2018-08-15] MEDS: METOPROLOL TAR 25 MG TAB PO SCH (05:43)
[2018-08-15] MEDS: PANTOPRAZOLE 40MG TABLET PO SCH (05:44)
[2018-08-15 05:49] LABS: Absolute Lymphocytes (CBC) 0.9 K/uL (0.7-4.9); Absolute Monocytes 0.7 K/uL (0.1-1.3); Absolute Neutrophil 4.7 K/uL (1.8-8.0); Hematocrit 47.7 % (39.6-49.0); MPV 9.9 fL (7.6-11.3); Monocytes % 11.6 % (3.3-12.3)
[2018-08-15 06:29] LABS: Albumin 3.1 g/dL (3.4-5.0); Bilirubin Total 0.6 mg/dL (0.2-1.0); Magnesium 2.8 mg/dL (1.8-2.4); Potassium 4.5 mmol/L (3.5-5.1); Protein, Total 6.5 g/dL (6.4-8.2)
[2018-08-15] MEDS: ARFORMOTEROL TARTRATE 15 MCG/2 ML VIAL.NEB NEB SCH (07:41)
[2018-08-15] MEDS: FUROSEMIDE 40 MG TABLET PO SCH (08:47)
[2018-08-15] MEDS: LISINOPRIL 5 MG TAB PO SCH (08:48)
[2018-08-15] MEDS: SERTRALINE HCL 50 MG TAB PO SCH (08:48)
[2018-08-15] MEDS: ENOXAPARIN 60 MG/0.6 ML SQ SCH (08:49)
[2018-08-15] MEDS: ASPIRIN 81 MG CHEWABLE TABLET PO SCH (08:49)
[2018-08-15] MEDS: ALLOPURINOL 300 MG TAB PO SCH (08:49)
[2018-08-15] MEDS ORDERED: ARFORMOTEROL TARTRATE 15 MCG/2 ML VIAL.NEB NEB SCH (10:10)
--- NOTE | 2018-08-15 10:11 | P.CNS ---
Date of Consult: 08/15/18 Primary Care Provider: Dr Frank Chang Chief Complaint: COPD History of Present Illness: Patient is 68 years of age admitted with a NSTEMI elevated troponins and CHF the recent cardiac catheterization shows inoperable coronary artery disease Patient has a history of COPD heavy 1 pack a day smoker uses short-acting bronchodilators at home he denies any chest pain still has some shortness of breath. Scheduled to go to a custodial History of CABG before Allergies No Known Allergies Allergy (Verified 09/21/15 13:31) Home Medications: Albuterol Sulfate [Proair Hfa] 8.5 gm IH Q6H PRN 08/13/18 Allopurinol [Zyloprim] 600 mg PO DAILY 08/13/18 Amlodipine Besylate/Benazepril [Amlodipine-Benazepril 10-40 mg] 1 tab PO DAILY 08/13/18 Atorvastatin Calcium [Lipitor] 80 mg PO BEDTIME 08/13/18 Esomeprazole Mag Trihydrate [Nexium] 40 mg PO DAILY 08/13/18 Levothyroxine [Synthroid] 100 mcg PO [id number] 08/13/18 Ranitidine [Zantac*] 1 tab PO BEDTIME 08/13/18 Sertraline [Zoloft] 50 mg PO DAILY 08/13/18 - Past Medical/Surgical History Diabetic: No -: HTN -: COPD -: CAD with CABG and stent -: CABG -: Stents - Social History Smoking Status: Current every day smoker Alcohol use: Yes CD- Drugs: No Caffeine use: Yes Place of Residence: Home Review of Systems 10-point ROS is otherwise unremarkable General: Weakness Respiratory: Shortness of Breath Physical Examination Temp Pulse Resp BP Pulse Ox 97.2 F 61 20 135/65 94 08/15/18 08:00 08/15/18 08:48 08/15/18 08:00 08/15/18 08:48 08/15/18 08:00 General: Alert, Oriented x3 HEENT: Atraumatic Neck: Supple Respiratory: Clear to auscultation bilaterally, Diminished Cardiovascular: No edema, Normal S1 S2 - Problems (1) COPD (chronic obstructive pulmonary disease) Current Visit: Yes Status: Acute Plan: Patient is 68 years of age admitted with an CA inoperable coronary artery disease history of coronary artery disease status post CABG heavy smoker presumed underlying COPD lead a long-acting bronchodilator at home recommend Anoro. He also qualifies for home O2 console to stops smoking chest x-ray shows some cardiomegaly echocardiogram shows mild global hypokinesis labs reviewed Qualifiers: COPD type: unspecified COPD Qualified Code(s): J44.9 - Chronic obstructive pulmonary disease, unspecified
--- NOTE | 2018-08-15 12:40 | P.DS ---
Admission Date: 08/12/18 Discharge Date: 08/15/18 Primary Care Provider: Dr Frank Chang Disposition: ROUTINE DISCHARGE Discharge Condition: FAIR Reason for Admission: COPD Consultations: Cardiology-Dr. Jefferson Pulmonary-Dr. Stephens Procedures: ECHO: EF 45% LEFT VENTRICULAR WALL MOTION: MILD GLOBAL HYPOKINESIS. DOPPLER/COLOR FLOW: MILD TRICUSPID REGURGITATION. NORMAL RIGHT VENTRICULAR SYSTOLIC PRESSURE. MILD AORTIC STENOSIS. AORTIC VALVE AREA 1.7 CENTIMETERS SQUARED. COMMENTS: MILD TRICUSPID REGURGITATION. NORMAL RIGHT VENTRICULAR SYSTOLIC PRESSURE. MILD GLOBAL HYPOKINESIS. LEFT VENTRICULAR EJECTION FRACTION 45-50%. MILD AORTIC STENOSIS. AORTIC VALVE AREA 1.7 CENTIMETERS SQUARED. MITRAL ANNULAR CALCIFICATION. Heart catheterization: Date of Procedure: 08/13/2018 Surgeon: William Jefferson MD Sample Sewer: Dl Gates. Procedures: Left heart catheterization, selective coronary arteriogram, left ventriculogram, injection of the left internal mammary artery and injection of saphenous vein graft to the right coronary artery and obtuse marginal. Indication: Unstable angina with non-ST elevation myocardial infarction. Procedure In Detail: He was brought into the trestle main[facility] lab[facility] today for catheterization. He was sedated initially with 3 mg of Versed, but he became hypoxic. This was reversed with re-Versed. O2 saturation went up to 100% after non-rebreather. The patient awake. 6-Tuvaluan catheters and sheath were used to do the catheterization. 6-Tu[place]uan sheath introduced in the right common femoral artery. Angiogram there was normal. Angio-Seal was used to close the case. 6-Tuvaluan catheters were used, left Keira and right Keira initially to do the injection for the left main and the right main. We had to use a 3DRC catheter to cannulate the SVG to the OM1 and OM2. The patient had 100% left main, severe, and 100% occlusion of the circumflex, 100% occlusion of the RCA. His JOVEL was occluded. His vein graft to the OM1, OM2 was patent, but the OM1, OM2 distally were very small. The vein graft to the RCA was occluded. He was noted to have an 80% stenosis of the left subclavian artery. There were no complications. Blood Loss: 5 cc. Postoperative Diagnosis: Severe inoperable coronary artery disease. Medical Problem List: Unstable angina with Non ST wave [place] with history of CAD complicated with mild aortic stenosis and acute on chronic systolic CHF status post heart catheterization with findings of severe inoperable Coronary artery disease Hypertension COPD, chronic, oxygen dependent Hyperlipidemia Hypothyroidism GERD Brief History of Present Illness: 68-year-old male present emergency room with increasing shortness of breath and dizziness. Patient with history of CAD, COPD, hypertension, depression, hypothyroidism and tobacco abuse. Patient found to have non ST wave AK. Patient admitted for treatment. Hospital Course: Patient presented with increasing shortness of breath secondary to unstable angina. Patient found to have non ST wave AK. Patient seen and evaluated by Cardiology. Intervention was required. Patient with history of CAD. Echocardiogram showed ejection fraction of 45%. Heart catheterization done findings indicated severe inoperable Coronary artery disease. Medical management was recommended. Cardiology recommended to start Ranexa twice daily. Patient waited for skilled placement. Patient accepted. Patient will go to prison facility prior to going home. At discharge patient will continue with aspirin 81 mg daily, Lipitor 80 mg daily, lisinopril 5 mg 1 pill daily, metoprolol 12.5 mg 1 pill daily, Ranexa 500 mg 1 pill twice daily, Lasix 40 mg 1 pill once daily, and nitro to be use as needed for chest pain. Patient will follow up with cardiology in 2-4 weeks to monitor his progress. Advanced directives address in detail prior to sending the patient to skilled facility. Patient understands his heart condition. Patient wishes to be do not resuscitate. Patient with underlying hypertension. At discharge patient will continue with lisinopril 5 mg daily and metoprolol 12.5 mg daily. Recommendation is to maintain blood pressures less 150/80. Further adjustment can be done by his PCP. Patient has underlying COPD. Patient is oxygen dependent. Patient seen and evaluated by pulmonology. At discharge patient will continue with Anoro one puff once daily, albuterol 2 puffs as needed for shortness of breath. At discharge patient will continue with prednisone 10 mg 1 pill twice daily for 5 days then 1 pill once daily for 5 days. Patient will remain on oxygen to maintain sats above 90%. This may be able to weaned weaned off. Recommendations for the patient follow up with pulmonology in 2-4 weeks to follow up this hospitalization and continue his care. Patient has hypothyroidism. Patient will continue with his medication levothyroxine 100 mcg daily. Patient has GERD. Patient will continue with Protonix 40 mg 1 pill once daily. Patient has depression with anxiety. Patient may continue with Zoloft 50 mg daily Patient with history of tobacco abuse. Tobacco cessation addressed in detail. Patient will continue with nicotine patch daily. Patient with gout. Patient will continue with allopurinol 600 mg daily. Vital Signs/Physical Exam: Temp Pulse Resp BP Pulse Ox 97.2 F 61 20 135/65 94 08/15/18 08:00 08/15/18 08:48 08/15/18 08:00 08/15/18 08:48 08/15/18 08:00 General: Alert, In no apparent distress, Oriented x3, Cooperative HEENT: Atraumatic Neck: Supple Respiratory: Clear to auscultation bilaterally, Normal air movement Cardiovascular: Normal pulses, Regular rate/rhythm Gastrointestinal: Normal bowel sounds, Soft and benign, Non-distended, No tenderness, No masses, No rebound, No guarding Musculoskeletal: No erythema, No tenderness, No warmth Integumentary: No tenderness/swelling, No erythema, No warmth, No cyanosis Neurological: Normal speech, Normal strength at 5/5 x4 extr, Normal tone, Normal affect Lymphatics: No axilla or inguinal lymphadenopathy Laboratory Data at Discharge: WBC 6.3 K/uL (4.3-10.9) 08/15/18 05:26 Hgb 16.6 g/dL (13.6-17.9) 08/15/18 05:26 Hct 47.7 % (39.6-49.0) 08/15/18 05:26 Plt Count 133 K/uL (152-406) L 08/15/18 05:26 PT 12.3 SECONDS (9.5-12.5) 08/12/18 12:35 INR 1.04 08/12/18 12:35 APTT 28.3 SECONDS (24.3-36.9) 08/12/18 13:30 Sodium 141 mmol/L (136-145) 08/15/18 05:26 Potassium 4.5 mmol/L (3.5-5.1) 08/15/18 05:26 BUN 47 mg/dL (7-18) H 08/15/18 05:26 Creatinine 0.86 mg/dL (0.55-1.3) 08/15/18 05:26 Glucose 118 mg/dL (74-106) H 08/15/18 05:26 Phosphorus 2.7 mg/dL (2.5-4.9) 08/13/18 05:01 Magnesium 2.8 mg/dL (1.8-2.4) H 08/15/18 05:26 Total Bilirubin 0.6 mg/dL (0.2-1.0) 08/15/18 05:26 AST 23 U/L (15-37) 08/15/18 05:26 ALT 22 U/L (12-78) 08/15/18 05:26 Alkaline Phosphatase 76 U/L (45-117) 08/15/18 05:26 Troponin I 3.32 ng/mL (0.0-0.045) H* 08/13/18 11:41 Triglycerides 123 mg/dL (<150) 08/13/18 05:01 Cholesterol 98 mg/dL (<200) 08/13/18 05:01 HDL Cholesterol 32 mg/dL (40-60) L 08/13/18 05:01 Cholesterol/HDL Ratio 3.06 08/13/18 05:01 Lipase 89 U/L (73-393) 08/12/18 13:30 Home Medications: Allopurinol [Zyloprim*] 600 mg PO DAILY 08/13/18 Levothyroxine [Synthroid*] 100 mcg PO [id number] 08/13/18 Sertraline [Zoloft*] 50 mg PO DAILY 08/13/18 Albuterol Sulfate [Proair Hfa] 8.5 gm IH TID PRN #1 hfa.aer.ad 08/15/18 Aspirin Chewable [Aspirin Chewable*] 81 mg PO DAILY #90 tab.chew 08/15/18 Atorvastatin Calcium [Lipitor] 80 mg PO BEDTIME #30 tab 08/15/18 Furosemide [Lasix*] 40 mg PO DAILY #30 tab 08/15/18 Lisinopril [Prinivil*] 5 mg PO DAILY #30 tab 08/15/18 Metoprolol Tartrate [Lopressor*] 12.5 mg PO [id number] #30 tab 08/15/18 Nicotine [Nicoderm*] 21 mg TD DAILY PRN #30 patch.td24 08/15/18 Nitroglycerin [Nitrostat*] 1 tab SL SEECOM PRN #30 tab 08/15/18 Pantoprazole [Protonix Tab*] 40 mg PO DAILYAC #30 tab 08/15/18 Umeclidinium Brm/Vilanterol Tr [Anoro Ellipta 62.5-25 Mcg INH] 1 each IH DAILY # 1 blst.w.dev 08/15/18 predniSONE [Deltasone*] 10 mg PO SEECOM #15 tab 08/15/18 New Medications: Albuterol Sulfate [Proair Hfa] 8.5 gm IH TID PRN #1 hfa.aer.ad PRN Reason: Shortness Of Breath Aspirin Chewable [Aspirin Chewable*] 81 mg PO DAILY #90 tab.chew Atorvastatin Calcium [Lipitor] 80 mg PO BEDTIME #30 tab Furosemide [Lasix*] 40 mg PO DAILY #30 tab Lisinopril [Prinivil*] 5 mg PO DAILY #30 tab Metoprolol Tartrate [Lopressor*] 12.5 mg PO [id number] #30 tab Nicotine [Nicoderm*] 21 mg TD DAILY PRN #30 patch.td24 PRN Reason: Agitation Mild Nitroglycerin [Nitrostat*] 1 tab SL SEECOM PRN #30 tab PRN Reason: Chest Pain Pantoprazole [Protonix Tab*] 40 mg PO DAILYAC #30 tab predniSONE [Deltasone*] 10 mg PO SEECOM #15 tab Umeclidinium Brm/Vilanterol Tr [Anoro Ellipta 62.5-25 Mcg INH] 1 each IH DAILY # 1 blst.w.dev Patient Discharge Instructions: 1. Patient will go to prison facility to continue rehabilitation. 2. Patient presented with increasing shortness of breath secondary to unstable angina. Patient found to have non ST wave [place]. Patient seen and evaluated by Cardiology. Intervention was required. Patient with history of CAD. Echocardiogram showed ejection fraction of 45%. Heart catheterization done findings indicated severe inoperable Coronary artery disease. Medical management was recommended. Cardiology recommended to start Ranexa twice daily. Patient waited for skilled placement. Patient accepted. Patient will go to prison facility prior to going home. At discharge patient will continue with aspirin 81 mg daily, Lipitor 80 mg daily, lisinopril 5 mg 1 pill daily, metoprolol 12.5 mg 1 pill daily, Ranexa 500 mg 1 pill twice daily, Lasix 40 mg 1 pill once daily, and nitro to be use as needed for chest pain. Patient will follow up with cardiology in 2-4 weeks to monitor his progress. Advanced directives address in detail prior to sending the patient to skilled facility. Patient understands his heart condition. Patient wishes to be do not resuscitate. 3. Patient with underlying hypertension. At discharge patient will continue with lisinopril 5 mg daily and metoprolol 12.5 mg daily. Recommendation is to maintain blood pressures less 150/80. Further adjustment can be done by his PCP. 4. Patient has underlying COPD. Patient is oxygen dependent. Patient seen and evaluated by pulmonology. At discharge patient will continue with Anoro one puff once daily, albuterol 2 puffs as needed for shortness of breath. At discharge patient will continue with prednisone 10 mg 1 pill twice daily for 5 days then 1 pill once daily for 5 days. Patient will remain on oxygen to maintain sats above 90%. This may be able to weaned weaned off. Recommendations for the patient follow up with pulmonology in 2-4 weeks to follow up this hospitalization and continue his care. 5. Patient has hypothyroidism. Patient will continue with his medication levothyroxine 100 mcg daily. 6. Patient has GERD. Patient will continue with Protonix 40 mg 1 pill once daily. 7. Patient has depression with anxiety. Patient may continue with Zoloft 50 mg daily. 8. Patient with history of tobacco abuse. Tobacco cessation addressed in detail. Patient will continue with nicotine patch daily. 9. Patient with gout. Patient will continue with allopurinol 600 mg daily. Diet: AHA Activity: Fall precautions Followup: Nam Stephens MD [ACTIVE - CAN ADMIT] - Time spent managing pt's care (in minutes): 55
[2018-08-15] MEDS ORDERED: predniSONE 10 MG TAB PO SCH (21:00)
[2018-08-16] MEDS ORDERED: ENOXAPARIN 40 MG/0.4 ML SQ SCH (09:00)
== END 2018-08-15 16:20 | DRG 280 ==
LOC: ER 11:30 → ERHOLD 17:18 → 3RD-ICU 22:03 → 2ND 08-14 05:00
PROVIDERS: ADMIT Family Medicine; ATTEND Family Medicine
PROC: 4A023N7 Measurement of Cardiac Sampling and Pressure, Left Heart, Percutaneous Approach (ICD-10-PCS; principal; 2018-08-13)
PROC: B211YZZ Fluoroscopy of Multiple Coronary Arteries using Other Contrast (ICD-10-PCS; 2018-08-13)
PROC: B213YZZ Fluoroscopy of Multiple Coronary Artery Bypass Grafts using Other Contrast (ICD-10-PCS; 2018-08-13)
PROC: B215YZZ Fluoroscopy of Left Heart using Other Contrast (ICD-10-PCS; 2018-08-13)
DX: I21.4 Non-ST elevation (NSTEMI) myocardial infarction (principal); I50.23 Acute on chronic systolic (congestive) heart failure; J44.1 Chronic obstructive pulmonary disease with (acute) exacerbation; I11.0 Hypertensive heart disease with heart failure; E78.5 Hyperlipidemia, unspecified; E03.9 Hypothyroidism, unspecified; K21.9 Gastro-esophageal reflux disease without esophagitis; F32.9 Major depressive disorder, single episode, unspecified; F17.210 Nicotine dependence, cigarettes, uncomplicated; Z66 Do not resuscitate; F41.9 Anxiety disorder, unspecified; M10.9 Gout, unspecified; Z95.1 Presence of aortocoronary bypass graft; Z95.5 Presence of coronary angioplasty implant and graft; I25.110 Atherosclerotic heart disease of native coronary artery with unstable angina pectoris; I25.720 Atherosclerosis of autologous artery coronary artery bypass graft(s) with unstable angina pectoris; I25.710 Atherosclerosis of autologous vein coronary artery bypass graft(s) with unstable angina pectoris; I25.82 Chronic total occlusion of coronary artery; I35.0 Nonrheumatic aortic (valve) stenosis
CPT/HCPCS: 36415; 71045; 80048; 80053; 80061; 80076; 81003; 82550; 82553; 83690; 83735; 83880; 84100; 84132; 84145; 84484; 85025; 85379; 85610; 85730; 87040; 87804; 93005; 93306; 93459; 94640; 94660; 96372; 96374; 96375; 97110; 97162; 97530; 99285; C1893; J0583; J1170; J1650; J1940; J2250; J2405; J2930; J3010; J7030; J7605

== ENCOUNTER 2019-07-06 15:01 | Inpatient (IN) | payer OTHER ==
--- OUTSIDE RECORDS SUMMARY | 2019-07-06 15:03 | XMS REPORT ---
:1950 Author Organization [employer] Care Team Providers Name Role Phone Frank Chang Provider Role Unavailable Allergies No Known Allergies Problems Problem Type Condition Code Onset Dates Condition Status Problem Atherosclerosis of coronary artery I25.10 Active of [place] heart Problem Chronic obstructive pulmonary J44.9 Active disease, unspecified COPD type Problem Gout of right ankle, unspecified M10.9 Active cause, unspecified chronicity Problem Hx of non-ST elevation myocardial I25.2 Active infarction (NSTEMI) Problem Benign essential HTN I10 Active Problem History of left below knee Z89.512 Active amputation Problem Peripheral vascular disease I73.9 Active Problem Unsteady gait R26.81 Active Problem Abnormal laboratory test result R89.9 Active Problem Peptic ulc, site unsp, unsp as ac K27.9 Active or chr, w/o hemor or perf Problem Hypercalcemia E83.52 Active Problem 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 Problem Peptic ulcer disease K27.9 Active Problem Prediabetes R73.09 Active Problem Hypothyroidism E03.9 Active Problem Allergic rhinitis J30.9 Active Problem History of CVA (cerebrovascular Z86.73 Active accident) without residual deficits Problem Hyperlipidemia, mixed E78.2 Active Problem Stented coronary artery Z95.5 Active Problem 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 Assessment Hypothyroidism E03.9 Active Problem Depression with anxiety F41.8 Active Problem Tobacco use disorder F17.200 Active Medications Medication Code Code Instructions Start End Status Dosage System Date Date Levothyroxine [facility] [place] [id number] 88 MCG Orally Active 1 tablet Sodium Once a day on an empty stomach in the morning Results No Known Results Summary Purpose [employer]Clinical[employer] Submission
[2019-07-06] MEDS ORDERED: IPRATROPIUM BROM 0.5MG/2.5ML ONE (15:25)
[2019-07-06] MEDS ORDERED: METHYLPREDNISOLONE 125 MG INJ ONE (15:25)
[2019-07-06] MEDS ORDERED: ALBUTEROL 2.5 MG/3 ML NEB SOL ONE (15:25)
--- NOTE | 2019-07-06 15:51 | ER ---
Nurse's Notes [facility] Name: Javed Sams Age: 68 yrs Sex: Male : 1950 Arrival Date: 07/06/2019 Time: 15:04 Bed 20 Private MD: Diagnosis: Dyspnea;Chronic obstructive pulmonary disease with (acute) exacerbation;Hypoxemia;Tobacco abuse counseling;Tobacco use;Other chest pain;Pneumonia due to other specified bacteria-right base developing Presentation: 07/06 15:16 Presenting complaint: Patient states: cough, runny nose, SOB X 2 weeks, hx of COPD, iw feels like someone stepped on chest. Transition of care: patient was not received from another setting of care. Onset of symptoms was June 23, 2019. Risk Assessment: Do you want to hurt yourself or someone else? Patient reports no desire to harm self or others. Initial Sepsis Screen: Does the patient meet any 2 criteria? RR > 20 per min. HR > 90 bpm. No. Patient's initial sepsis screen is negative. Does the patient have a suspected source of infection? No. Patient's initial sepsis screen is negative. Care prior to arrival: None. 15:16 Method Of Arrival: Ambulatory iw 15:16 Acuity: LÓPEZ 2 iw Historical: - Allergies: 15:25 "cold medicine"; iw - Home Meds: 15:29 amlodipine-benazepril 10-20 mg oral cap 1 cap once daily [Active]; Allopurinol 600 mg iw Oral once daily [Active]; hydrochlorothiazide 25 mg Oral tab 1 tab once daily [Active]; atorvastatin 80 mg oral tab 1 tab once daily [Active]; levothyroxine 100 mcg tab 1 tab once daily [Active]; tramadol 50 mg Oral tab 1 tab every 6 hours [Active]; ranitidine HCl 150 mg Oral cap 1 cap 2 times per day [Active]; ProAir HFA inhalation inhalation [Active]; albuterol sulfate 2.5 mg /3 mL (0.083 %) Nebulizer nebu every 6 hours [Active]; Zoloft 50 mg Oral tab 1 tab once daily [Active]; - PMHx: 15:25 COPD; Hypertension; Hypothyroidism; iw - Immunization history:: Adult Immunizations up to date. - Social history:: Smoking status: Patient uses tobacco products, smokes one pack cigarettes per day. - Ebola Screening: : Patient negative for fever greater than or equal to 101.5 degrees Fahrenheit, and additional compatible Ebola Virus Disease symptoms Patient denies exposure to infectious person Patient denies travel to an Ebola-affected area in the 21 days before illness onset No symptoms or risks identified at this time. Screenin:20 Abuse screen: Denies threats or abuse. Denies injuries from another. Nutritional jl7 screening: No deficits noted. Tuberculosis screening: No symptoms or risk factors identified. Fall Risk IV access (20 points). Assessment: 15:20 General: Appears distressed, uncomfortable, ill, slender, Behavior is cooperative, jl7 anxious. Pain: Complains of pain in chest Pain does not radiate. Pain currently is 5 out of 10 on a pain scale. Quality of pain is described as pressure, Pain began 2-3 days ago. Is continuous. Neuro: Level of Consciousness is awake, alert, obeys commands, Oriented to person, place, time, situation. Cardiovascular: Heart tones present Patient's skin is warm and dry. Respiratory: Airway is patent Respiratory effort is even, labored, with retractions, Respiratory pattern is symmetrical, tachypnea Breath sounds are coarse Breath sounds with crackles in right posterior middle lobe and right posterior lower lobe. Derm: Skin is pink, warm \\T\\ dry. 16:20 Reassessment: Patient appears in no apparent distress at this time. Patient and/or jl7 family updated on plan of care and expected duration. Pain level reassessed. Patient is alert, oriented x 3, equal unlabored respirations, skin warm/dry/pink. Patient states feeling better. Patient states symptoms have improved. Vital Signs: 15:25 BP 138 / 75; Pulse 96; Resp 28 S; Temp 100.3(TE); Pulse Ox 83% on R/A; Weight 56.7 kg; iw Height 5 ft. 7 in. (170.18 cm); Pain 5/10; 16:00 BP 117 / 76; Pulse 102; Resp 23 S; Pulse Ox 100% on Nebulizer Mask; jl7 16:45 BP 106 / 83; Pulse 99; Resp 25 S; Pulse Ox 94% on 2 lpm NC; jl7 17:47 BP 104 / 56; Pulse 83; Resp 26 S; Temp 99.2(O); Pulse Ox 96% on 2 lpm NC; jl7 15:25 Body Mass Index 19.58 (56.70 kg, 170.18 cm) iw ED Course: 15:04 Patient arrived in ED. mr 15:16 Robinson Garcia MD is Attending Physician. jase 15:18 Triage completed. iw 15:18 Sulema Cain, STEFANIE is Primary Nurse. jl7 15:20 Oxygen administration via nasal cannula \\T\\ 4L/min Response to oxygen therapy: symptoms jl7 improved. 15:20 Patient has correct armband on for positive identification. Placed in gown. Bed in low jl7 position. Call light in reach. Side rails up X 1. compliance monitor on. Pulse ox on. NIBP on. 15:21 EKG done, by hydro plant technician. reviewed by Lv Mcguire MD. 3 15:25 Arm band placed on. iw 15:35 Inserted saline lock: 20 gauge in right forearm, using aseptic technique. Blood jl7 collected. 15:35 Initial lab(s) drawn, by me, sent to lab. First set of blood cultures drawn by me. jl7 15:46 XRAY Chest (1 view) In Process Unspecified. EDMS 15:48 Haseeb Tipton MD is Hospitalizing Provider. [facility] 17:06 No provider procedures requiring assistance completed. Patient admitted, IV remains in jl7 place. intact, No redness/swelling at site. Administered Medications: 15:40 Drug: Albuterol - atroVENT (3:1) (2.5 mg - 0.5 mg) 3 ml Route: Nebulizer; jl7 17:03 Follow up: Response: No adverse reaction jl7 15:40 Drug: SOLU-Medrol 125 mg Route: IVP; Site: right forearm; jl7 17:03 Follow up: Response: No adverse reaction jl7 15:45 Drug: NS 0.9% 1000 ml Route: IV; Rate: 125 ml/hr; Site: right forearm; jl7 17:02 Follow up: IV Status: Infusion continued upon admission jl7 16:20 Drug: Pepcid 20 mg Route: IVP; Site: right forearm; jl7 17:03 Follow up: Response: No adverse reaction jl7 16:21 Drug: NS 0.9% 500 ml Route: IV; Rate: bolus; Site: right forearm; jl7 16:50 Follow up: Response: No adverse reaction; IV Status: Completed infusion; IV Intake: jl7 500ml 16:21 Drug: Rocephin 1 grams Route: IV; Rate: per protocol; Site: right forearm; jl7 16:24 Follow up: Response: No adverse reaction; IV Status: Completed infusion jl7 16:22 Drug: Tylenol 650 mg Route: PO; jl7 17:04 Follow up: Response: No adverse reaction jl7 16:22 Drug: Aspirin 162 mg Route: PO; jl7 17:04 Follow up: Response: No adverse reaction jl7 17:01 Drug: Zithromax 500 mg Route: IVPB; Infused Over: 1 hrs; Site: right forearm; jl7 17:49 Follow up: IV Status: Completed infusion jl7 17:49 Follow up: Response: No adverse reaction jl7 Intake: 16:50 IV: 500ml; Total: 500ml. jl7 Outcome: 15:50 Decision to Hospitalize by Provider. [facility] 17:47 Admitted to Tele accompanied by tech, via wheelchair, room 425, with oxygen, with jl7 chart, Report called to STEFANIE Buchanan 17:47 Condition: stable 17:47 Discharge instructions given to patient, Instructed on the need for admit, Demonstrated understanding of instructions. 18:03 Patient left the ED. jl7 Signatures: Dispatcher [employer] Robinson Ocasio MD MD cha Rivera, Mary mr Williams, Irene, RN Sulema Talbert RN RN jl7 Montes, Shakira sm3 Corrections: (The following items were deleted from the chart) 15:24 15:16 Acuity: LÓPEZ 3 iw 15:26 15:16 Initial Sepsis Screen: Does the patient meet any 2 criteria? No. Patient's iw initial sepsis screen is negative. Does the patient have a suspected source of infection? No. Patient's initial sepsis screen is negative. iw
--- NOTE | 2019-07-06 15:51 | EDPHYS ---
Physician Documentation [facility] Name: Javed Sams Age: 68 yrs Sex: Male : 1950 Arrival Date: 07/06/2019 Time: 15:04 Bed 20 Private MD: ED Physician Robinson Garcia HPI: 07/06 15:45 This 68 yrs old Male presents to ER via Ambulatory with complaints of Chest jase Pain, Shortness Of Breath, Runny Nose. 15:45 The patient or guardian reports chest pain that is located primarily in the anterior jase chest wall, bilaterally. Onset: 3 day(s) ago. Historical: - Allergies: 15:25 "cold medicine"; iw - Home Meds: 15:29 amlodipine-benazepril 10-20 mg oral cap 1 cap once daily [Active]; Allopurinol 600 mg iw Oral once daily [Active]; hydrochlorothiazide 25 mg Oral tab 1 tab once daily [Active]; atorvastatin 80 mg oral tab 1 tab once daily [Active]; levothyroxine 100 mcg tab 1 tab once daily [Active]; tramadol 50 mg Oral tab 1 tab every 6 hours [Active]; ranitidine HCl 150 mg Oral cap 1 cap 2 times per day [Active]; ProAir HFA inhalation inhalation [Active]; albuterol sulfate 2.5 mg /3 mL (0.083 %) Nebulizer nebu every 6 hours [Active]; Zoloft 50 mg Oral tab 1 tab once daily [Active]; - PMHx: 15:25 COPD; Hypertension; Hypothyroidism; iw - Immunization history:: Adult Immunizations up to date. - Social history:: Smoking status: Patient uses tobacco products, smokes one pack cigarettes per day. - Ebola Screening: : Patient negative for fever greater than or equal to 101.5 degrees Fahrenheit, and additional compatible Ebola Virus Disease symptoms Patient denies exposure to infectious person Patient denies travel to an Ebola-affected area in the 21 days before illness onset No symptoms or risks identified at this time. ROS: 15:46 Constitutional: Negative for fever, chills, and weight loss, Eyes: Negative for injury, jase pain, redness, and discharge, ENT: Negative for injury, pain, and discharge, Neck: Negative for injury, pain, and swelling, Cardiovascular: Negative for chest pain, palpitations, and edema, Abdomen/GI: Negative for abdominal pain, nausea, vomiting, diarrhea, and constipation, Back: Negative for injury and pain, : Negative for injury, bleeding, discharge, and swelling, MS/Extremity: Negative for injury and deformity, Skin: Negative for injury, rash, and discoloration, Neuro: Negative for headache, weakness, numbness, tingling, and seizure, Psych: Negative for depression, anxiety, suicide ideation, homicidal ideation, and hallucinations, Allergy/Immunology: Negative for hives, rash, and allergies, Endocrine: Negative for neck swelling, polydipsia, polyuria, polyphagia, and marked weight changes, Hematologic/Lymphatic: Negative for swollen nodes, abnormal bleeding, and unusual bruising. 15:46 Respiratory: Positive for cough, shortness of breath, wheezing, inspiratory, expiratory. Exam: 15:46 Constitutional: This is a well developed, well nourished patient who is awake, alert, jase and in no acute distress. Head/Face: Normocephalic, atraumatic. Eyes: Pupils equal round and reactive to light, extra-ocular motions intact. Lids and lashes normal. Conjunctiva and sclera are non-icteric and not injected. Cornea within normal limits. Periorbital areas with no swelling, redness, or edema. ENT: Nares patent. No nasal discharge, no septal abnormalities noted. Tympanic membranes are normal and external auditory canals are clear. Oropharynx with no redness, swelling, or masses, exudates, or evidence of obstruction, uvula midline. Mucous membranes moist. Neck: Trachea midline, no thyromegaly or masses palpated, and no cervical lymphadenopathy. Supple, full range of motion without nuchal rigidity, or vertebral point tenderness. No Meningismus. Chest/axilla: Normal chest wall appearance and motion. Nontender with no deformity. No lesions are appreciated. Cardiovascular: Regular rate and rhythm with a normal S1 and S2. No gallops, murmurs, or rubs. Normal PMI, no JVD. No pulse deficits. Abdomen/GI: Soft, non-tender, with normal bowel sounds. No distension or tympany. No guarding or rebound. No evidence of tenderness throughout. Back: No spinal tenderness. No costovertebral tenderness. Full range of motion. Skin: Warm, dry with normal turgor. Normal color with no rashes, no lesions, and no evidence of cellulitis. MS/ Extremity: Pulses equal, no cyanosis. Neurovascular intact. Full, normal range of motion. Neuro: Awake and alert, GCS 15, oriented to person, place, time, and situation. Cranial nerves II-XII grossly intact. Motor strength 5/5 in all extremities. Sensory grossly intact. Cerebellar exam normal. Normal gait. Psych: Awake, alert, with orientation to person, place and time. Behavior, mood, and affect are within normal limits. 15:46 Respiratory: mild respiratory distress is noted, moderate respiratory distress is noted, Respirations: normal, Breath sounds: decreased breath sounds, rhonchi, wheezing: inspiratory expiratory that is mild. Vital Signs: 15:25 BP 138 / 75; Pulse 96; Resp 28 S; Temp 100.3(TE); Pulse Ox 83% on R/A; Weight 56.7 kg; iw Height 5 ft. 7 in. (170.18 cm); Pain 5/10; 16:00 BP 117 / 76; Pulse 102; Resp 23 S; Pulse Ox 100% on Nebulizer Mask; jl7 16:45 BP 106 / 83; Pulse 99; Resp 25 S; Pulse Ox 94% on 2 lpm NC; jl7 17:47 BP 104 / 56; Pulse 83; Resp 26 S; Temp 99.2(O); Pulse Ox 96% on 2 lpm NC; jl7 15:25 Body Mass Index 19.58 (56.70 kg, 170.18 cm) MDM: 15:16 Patient medically screened. [facility] 15:47 Data reviewed: vital signs, nurses notes, lab test result(s), EKG, radiologic studies, [facility] plain films. 07/06 15:30 Order name: Basic Metabolic Panel 07/06 15:30 Order name: CBC with Diff; Complete Time: 16:24 07/06 15:30 Order name: LFT's 07/06 15:30 Order name: Magnesium 07/06 15:30 Order name: NT PRO-BNP 07/06 15:30 Order name: PT-INR; Complete Time: 16:24 07/06 15:30 Order name: Troponin (emerg Dept Use Only) 07/06 15:30 Order name: Blood Culture Adult (2) 07/06 15:40 Order name: Flu; Complete Time: 16:24 [facility] 07/06 16:20 Order name: CBC Smear Scan; Complete Time: 16:24 EDMD 07/06 16:25 Order name: CBC with Automated Diff [facility] [place] 07/06 16:25 Order name: CBC with Automated Diff [facility] [place] 07/06 16:25 Order name: CKMB Creatine Kinase MB [facility] [place] 07/06 16:25 Order name: CKMB Creatine Kinase MB [facility] [place] 07/06 15:30 Order name: XRAY Chest (1 view); Complete Time: 16:24 07/06 16:25 Order name: CKMB Creatine Kinase MB [facility] [place] 07/06 16:25 Order name: CKMB Creatine Kinase MB [facility] [place] 07/06 16:25 Order name: Comprehensive Metabolic Panel [facility] [place] 07/06 16:25 Order name: Comprehensive Metabolic Panel [facility] [place] 07/06 16:25 Order name: Creatine Phosphokinase [facility] [place] 07/06 16:25 Order name: Creatine Phosphokinase [facility] [place] 07/06 16:25 Order name: Creatine Phosphokinase [facility] [place] 07/06 16:25 Order name: Creatine Phosphokinase [facility] [place] 07/06 16:25 Order name: Troponin I [facility] [place] 07/06 16:25 Order name: Troponin I [facility] [place] 07/06 16:25 Order name: Troponin I [facility] [place] 07/06 15:30 Order name: EKG; Complete Time: 15:31 07/06 15:30 Order name: Cardiac monitoring; Complete Time: 15:31 07/06 15:30 Order name: EKG - Nurse/Tech; Complete Time: 15:32 07/06 15:30 Order name: IV Saline Lock; Complete Time: 15:32 07/06 15:30 Order name: Labs collected and sent; Complete Time: 15:48 07/06 15:30 Order name: O2 Per Protocol; Complete Time: 15:32 07/06 15:30 Order name: O2 Sat Monitoring; Complete Time: 15:32 07/06 16:25 Order name: CONS Pharmacy Consult [facility] [place] 07/06 16:25 Order name: [facility] EDMS Administered Medications: 15:40 Drug: Albuterol - atroVENT (3:1) (2.5 mg - 0.5 mg) 3 ml Route: Nebulizer; 7 17:03 Follow up: Response: No adverse reaction jl7 15:40 Drug: SOLU-Medrol 125 mg Route: IVP; Site: right forearm; jl7 17:03 Follow up: Response: No adverse reaction jl7 15:45 Drug: NS 0.9% 1000 ml Route: IV; Rate: 125 ml/hr; Site: right forearm; jl7 17:02 Follow up: IV Status: Infusion continued upon admission jl7 16:20 Drug: Pepcid 20 mg Route: IVP; Site: right forearm; jl7 17:03 Follow up: Response: No adverse reaction jl7 16:21 Drug: NS 0.9% 500 ml Route: IV; Rate: bolus; Site: right forearm; jl7 16:50 Follow up: Response: No adverse reaction; IV Status: Completed infusion; IV Intake: jl7 500ml 16:21 Drug: Rocephin 1 grams Route: IV; Rate: per protocol; Site: right forearm; jl7 16:24 Follow up: Response: No adverse reaction; IV Status: Completed infusion jl7 16:22 Drug: Tylenol 650 mg Route: PO; jl7 17:04 Follow up: Response: No adverse reaction jl7 16:22 Drug: Aspirin 162 mg Route: PO; jl7 17:04 Follow up: Response: No adverse reaction jl7 17:01 Drug: Zithromax 500 mg Route: IVPB; Infused Over: 1 hrs; Site: right forearm; jl7 17:49 Follow up: IV Status: Completed infusion jl7 17:49 Follow up: Response: No adverse reaction jl7 Disposition: 07/06/19 15:50 Hospitalization ordered by Haseeb Tipton for Inpatient Admission. Preliminary diagnosis are Dyspnea, Chronic obstructive pulmonary disease with (acute) exacerbation, Hypoxemia, Tobacco abuse counseling, Tobacco use, Other chest pain, Pneumonia due to other specified bacteria - right base developing . - Bed requested for Telemetry/MedSurg (Inpatient). - Status is Inpatient Admission. jl7 - Condition is Fair. - Problem is new. - Symptoms have improved. UTI on Admission? No Signatures: Dispatcher [employer] EDMS Shamika Torres Corey, MD MD cha Williams, Irene RN Sulema Talbert RN RN jl7 Corrections: (The following items were deleted from the chart) 16:24 15:50 Hospitalization Ordered by Haseeb Tipton MD for Inpatient Admission. Preliminary jase diagnosis is Dyspnea; Chronic obstructive pulmonary disease with (acute) exacerbation; Hypoxemia; Tobacco abuse counseling; Tobacco use; Other chest pain. Bed requested for Telemetry/MedSurg (Inpatient). Status is Inpatient Admission. Condition is Fair. Problem is new. Symptoms have improved. UTI on Admission? No. jase 16:59 16:24 07/06/2019 15:50 Hospitalization Ordered by Haseeb Tipton MD for Inpatient bd Admission. Preliminary diagnosis is Dyspnea; Chronic obstructive pulmonary disease with (acute) exacerbation; Hypoxemia; Tobacco abuse counseling; Tobacco use; Other chest pain; Pneumonia due to other specified bacteria - right base developing . Bed requested for Telemetry/MedSurg (Inpatient). Status is Inpatient Admission. Condition is Fair. Problem is new. Symptoms have improved. UTI on Admission? No. jase 18:03 16:59 07/06/2019 15:50 Hospitalization Ordered by Haseeb Tipton MD for Inpatient jl7 Admission. Preliminary diagnosis is Dyspnea; Chronic obstructive pulmonary disease with (acute) exacerbation; Hypoxemia; Tobacco abuse counseling; Tobacco use; Other chest pain; Pneumonia due to other specified bacteria - right base developing . Bed requested for Telemetry/MedSurg (Inpatient). Status is Inpatient Admission. Condition is Fair. Problem is new. Symptoms have improved. UTI on Admission? No. bd
[2019-07-06] MEDS ORDERED: ASPIRIN 81 MG CHEWABLE TABLET ONE (15:52)
[2019-07-06] MEDS ORDERED: CEFTRIAXONE/SWI 1gm 1 GM/10 ML SYR ONE (15:53)
[2019-07-06] MEDS ORDERED: FAMOTIDINE 20 MG/2 ML VIAL IV ONE (15:53)
[2019-07-06] MEDS ORDERED: ACETAMINOPHEN 325 MG TABLET ONE (15:53)
[2019-07-06] MEDS ORDERED: NA CHLORIDE 0.9% 1,000 ML ONE (15:53)
--- NOTE | 2019-07-06 15:53 | RAD REPORT ---
EXAM DESCRIPTION: RAD - Chest Single View - 07/06/2019 3:45 pm CLINICAL HISTORY: COPD Chest pain. COMPARISON: Chest Pa And Lat (2 Views) dated 04/16/2019; Chest Pa And Lat (2 Views) dated 03/13/2019; Chest Single View dated 08/14/2018; Chest Single View dated 08/12/2018 FINDINGS: Portable technique limits examination quality. Ill-defined opacities are present in the right lung base with a small right pleural effusion, likely representing infiltrate/ pneumonia. Volume loss with left apical lung cavity again seen, unchanged. T he heart is mildly enlarged in size with sternotomy wires present. No displaced fractures. IMPRESSION: Developing infiltrate/ pneumonia in the right lung base is noted.
[2019-07-06 15:59] LABS: Absolute Lymphocytes (CBC) 0.6 K/uL (0.7-4.9); Hematocrit 47.1 % (39.6-49.0); Lymphocytes % 5.1 % (15.3-44.8); MPV 8.9 fL (7.6-11.3); RBC Red Blood Cell Count 4.61 M/uL (4.33-5.43)
[2019-07-06] MEDS ORDERED: AZITHROMYCIN IV 500 MG in NA CHLORIDE 0.9% 250 ML IVPB ONE (16:00)
[2019-07-06 16:08] LABS: Protime INR 1.19
[2019-07-06 16:19] LABS: Urine White Blood Cell Casts OK
[2019-07-06 16:20] LABS: Blood Morphology Comment NOT SEEN (NOT SEEN); Platelet Estimate ADEQ
[2019-07-06] MEDS ORDERED: ONDANSETRON 4 MG/2 ML VIAL IV PRN (16:20)
[2019-07-06] MEDS ORDERED: MORPHINE 2 MG/ML SYR IV PRN (16:20)
[2019-07-06] MEDS ORDERED: ALBUTEROL 2.5 MG/3 ML NEB SOL NEB PRN (16:20)
[2019-07-06] MEDS ORDERED: HYDROCODONE/APAP 7.5/325 MG TAB PO PRN (16:22)
[2019-07-06] MEDS ORDERED: CEFTRIAXONE 1 GM/NS 50 ML 1 GM/50 ML BAG IV SCH (16:23)
[2019-07-06] MEDS ORDERED: NITROGLYCERIN 0.4 MG/TAB SL PRN (16:26)
--- NOTE | 2019-07-06 16:26 | P.HP ---
Certification for Inpatient Patient admitted to: Inpatient With expected LOS: >2 Midnights Patient will require the following post-hospital care: None Practitioner: I am a practitioner with admitting privileges, knowledge of patient current condition, hospital course, and medical plan of care. Services: Services provided to patient in accordance with Admission requirements found in Title 42 Section 412.3 of the Code of Federal Regulations Patient History Date of Service: 07/06/19 Reason for admission: Generalized body pain, fever, congestion History of Present Illness: A 66-year-old male with past medical history hypertension, COPD, CAD status post CABG and stent came to ER with generalized weakness and congestive symptoms associated with cough and shortness of breath. This has been going on for the last 2 days. Has sick contacts at home. Denies any chest pain . Cough is associated with mucoid sputum. No hemoptysis Denies any having any headache Has low-grade fever Patient was assessed in the ER and was found to have a right lower lobe pneumonia and was admitted for further management especially in view of his comorbidities. Allergies cold medicine Allergy (Uncoded 07/06/19 18:10) Nervouseness Home medications list reviewed: Yes Home Medications: Allopurinol [Zyloprim*] 600 mg PO DAILY 08/13/18 Levothyroxine [Synthroid*] 100 mcg PO [id number] 08/13/18 Sertraline [Zoloft*] 50 mg PO DAILYPRN PRN 08/13/18 Atorvastatin Calcium [Lipitor] 80 mg PO BEDTIME #30 tab 08/15/18 Umeclidinium Brm/Vilanterol Tr [Anoro Ellipta 62.5-25 Mcg INH] 1 each IH DAILY # 1 blst.w.dev 08/15/18 Albuterol Sulfate [Albuterol Sulfate 0.083% Neb Soln] 2.5 mg IH Q6HP PRN Albuterol Sulfate [Proair Hfa] 8.5 gm IH Q6HP PRN 07/06/19 Amlodipine Besylate/Benazepril [Amlodipine-Benazepril 10-20 mg] 1 each PO DAILY 07/06/19 Aspirin/Caffeine [Bc Powder Packet] 1 each PO PRN PRN 07/06/19 Esomeprazole Mag Trihydrate [Nexium] 40 mg PO [id number] 07/06/19 Ranitidine [Zantac] 150 mg PO BID 07/06/19 Tramadol HCl [Ultram] 50 mg PO Q6HP PRN 07/06/19 hydroCHLOROthiazide [Hydrochlorothiazide] 25 mg PO DAILY 07/06/19 - Past Medical/Surgical History Diabetic: No Past Medical History: Reviewed- Non-Contributory -: HTN -: COPD -: CAD with CABG and stent Past Surgical History: Reviewed- Non-Contributory -: CABG -: Stents - Family History Family History: Reviewed- Non-Contributory - Social History Smoking Status: Current every day smoker Alcohol use: Yes CD- Drugs: No Caffeine use: Yes Physical Examination - Vital Signs Temperature: 99.4 F Blood Pressure: 146/78 Pulse: 82 Respirations: 18 - Physical Exam General: Alert, Oriented x3, Mild distress HEENT: Atraumatic, Normocephalic Neck: Supple, Without JVD or thyroid abnormality Respiratory: Diminished, Crackles/rales, Expiratory wheezes Cardiovascular: Regular rate/rhythm, Normal S1 S2 Capillary refill: <2 Seconds Gastrointestinal: Soft and benign, No tenderness Musculoskeletal: No tenderness Integumentary: No rashes Neurological: Normal speech, Normal strength at 5/5 x4 extr, Normal affect Lymphatics: No axilla or inguinal lymphadenopathy External genitalia: Deferred Rectal: Deferred - Studies Laboratory Data (last 24 hrs) 07/06/19 15:35: PT 14.0 H, INR 1.19 07/06/19 15:35: WBC 11.9 H, Hgb 15.7, Hct 47.1, Plt Count 193 Microbiology Data (last 24 hrs): 07/06/19 15:35 Nasopharnyx Influenza Type A Antigen Screen - Final 07/06/19 15:35 Nasopharnyx Influenza Type B Antigen Screen - Final Assessment and Plan - Problems (Diagnosis) (1) Right lower lobe pneumonia Current Visit: Yes Status: Acute Plan: To start on antibiotics Will get cultures Change antibiotics as well as sensitivities and clinical response (2) CHF (congestive heart failure) Onset Date: 08/13/18 Current Visit: No Status: Chronic Plan: Continue home medications and titrate as needed Qualifiers: Heart failure type: unspecified Heart failure chronicity: acute Qualified Code(s): I50.9 - Heart failure, unspecified (3) COPD exacerbation Onset Date: 08/13/18 Current Visit: No Status: Acute Plan: Will start on bronchodilators steroids Monitor closely Oxygen supplementation as patient slightly hypoxic (4) CAD (coronary artery disease) Onset Date: 08/13/18 Current Visit: No Status: Chronic Plan: Continue home medications and titrate as needed Qualifiers: Coronary Disease-Associated Artery/Lesion type: [place] artery [place] vs. transplanted heart: [place] heart Associated angina: without angina Qualified Code(s): I25.10 - Atherosclerotic heart disease of [place] coronary artery without angina pectoris (5) HTN (hypertension) Onset Date: 08/13/18 Current Visit: No Status: Chronic Plan: Continue home medications and titrate as needed Qualifiers: Hypertension type: essential hypertension Qualified Code(s): I10 - Essential (primary) hypertension Discharge Plan: Home Plan to discharge in: 48 Hours - Advance Directives Does patient have a Living Will: Yes Does patient have a Durable POA for Healthcare: No Time Spent Managing Pts Care (In Minutes): 45
[2019-07-06 16:29] LABS: ALT/SGPT 23 U/L (12-78); AST/SGOT 22 U/L (15-37); Albumin 3.5 g/dL (3.4-5.0); Alkaline Phosphatase 157 U/L (45-117); BUN Blood Urea Nitrogen 15 mg/dL (7-18); Bicarbonate 31 mmol/L (21-32); Bilirubin Direct 0.3 mg/dL (0-0.2); Bilirubin Total 0.8 mg/dL (0.2-1.0); Glucose Level 107 mg/dL (74-106); NT PRO-BNP 9482 pg/mL (<125); Protein, Total 7.9 g/dL (6.4-8.2); Sodium Level 138 mmol/L (136-145); Troponin (Emerg Dept Use Only) 0.04 ng/mL (0.0-0.045)
[2019-07-06] MEDS: NA CHLORIDE 0.9% 1,000 ML IV SCH (18:52)
[2019-07-06] MEDS ORDERED: PNEUMOCOCCAL VACCINE 0.5 ML IMVAC ONE (19:00)
[2019-07-06] MEDS: IPRATROPIUM BROM 0.5MG/2.5ML NEB SCH (20:00)
[2019-07-06 20:28] LABS: CKMB Creatine Kinase MB 2.7 ng/mL (0.3-3.6); Troponin I 0.03 ng/mL (0.0-0.045)
[2019-07-06] MEDS: ATORVASTATIN 80 MG TAB PO SCH (20:36)
[2019-07-06] MEDS: GUAIFENESIN 600 MG SA TAB PO SCH (20:36)
[2019-07-06] MEDS: NICOTINE 14 MG/PAT TD SCH (22:44)
[2019-07-06 23:29] LABS: Urine Appearance CLEAR; Urine Bilirubin NEGATIVE (NEG); Urine Blood NEGATIVE (NEG); Urine Color YELLOW; Urine Glucose NEGATIVE (NEG); Urine Microscopic Reflex NO UMIC; Urine Protein NEGATIVE (NEG); Urine Specific Gravity 1.015 (1.005-1.030)
[2019-07-06] MEDS: METHYLPREDNISOLONE 40 MG INJ IV SCH (23:43)
[2019-07-07 01:01] LABS: CKMB Creatine Kinase MB 3.3 ng/mL (0.3-3.6)
[2019-07-07] MEDS: IPRATROPIUM BROM 0.5MG/2.5ML NEB SCH ×4 (02:00→20:00)
[2019-07-07] MEDS: NA CHLORIDE 0.9% 1,000 ML IV SCH ×2 (03:00→05:32)
[2019-07-07] MEDS: METOPROLOL TAR 25 MG TAB PO SCH (05:28)
[2019-07-07] MEDS: LEVOTHYROXINE SOD 0.1 MG TAB PO SCH (05:29)
[2019-07-07] MEDS: PANTOPRAZOLE 40MG TABLET PO SCH (05:29)
[2019-07-07] MEDS: METHYLPREDNISOLONE 40 MG INJ IV SCH ×3 (05:30→17:27)
[2019-07-07 05:39] LABS: Absolute Lymphocytes (CBC) 0.4 K/uL (0.7-4.9); Basophils % 0.2 % (0-1.3); Hematocrit 41.2 % (39.6-49.0); Lymphocytes % 6.4 % (15.3-44.8); MPV 9.2 fL (7.6-11.3); RBC Red Blood Cell Count 4.03 M/uL (4.33-5.43)
[2019-07-07 05:56] LABS: ALT/SGPT 17 U/L (12-78); AST/SGOT 18 U/L (15-37); Albumin 2.9 g/dL (3.4-5.0); Alkaline Phosphatase 122 U/L (45-117); BUN Blood Urea Nitrogen 21 mg/dL (7-18); Bicarbonate 31 mmol/L (21-32); Bilirubin Total 0.5 mg/dL (0.2-1.0); Glucose Level 171 mg/dL (74-106); Potassium 4.4 mmol/L (3.5-5.1); Protein, Total 6.6 g/dL (6.4-8.2); Sodium Level 141 mmol/L (136-145)
[2019-07-07] MEDS: allopurinoL 300 MG TAB PO SCH (08:49)
[2019-07-07] MEDS: ASPIRIN 81 MG CHEWABLE TABLET PO SCH (08:49)
[2019-07-07] MEDS: SERTRALINE HCL 50 MG TAB PO SCH (08:49)
[2019-07-07] MEDS: GUAIFENESIN 600 MG SA TAB PO SCH ×2 (08:49→21:04)
[2019-07-07] MEDS: lisinopriL 5 MG TAB PO SCH (08:49)
[2019-07-07] MEDS: FUROSEMIDE 40 MG TABLET PO SCH (08:50)
[2019-07-07] MEDS: NICOTINE 14 MG/PAT TD SCH (08:50)
[2019-07-07 08:51] LABS: CKMB Creatine Kinase MB 3.9 ng/mL (0.3-3.6)
[2019-07-07] MEDS: HOME MED 1 EA UNK (Umeclidinium Brm/Vilanterol Tr [Anoro Ellipta 62.5-25 Mcg Inh] 1 EACH) IH SCH (08:51)
--- NOTE | 2019-07-07 09:30 | P.PN ---
Subjective Date of Service: 07/07/19 Chief Complaint: Generalized body pain, fever, congestion Subjective: No new changes, Improving Review of Systems 10-point ROS is otherwise unremarkable General: Unremarkable ENT: Unremarkable Respiratory: Unremarkable Physical Examination - Vital Signs Temperature: 97.8 F Blood Pressure: 103/69 Pulse: 69 Respirations: 19 Pulse Ox (%): 97 - Physical Exam General: Alert, In no apparent distress HEENT: Atraumatic, Normocephalic Neck: Supple, 2+ carotid pulse no bruit Respiratory: Clear to auscultation bilaterally Cardiovascular: Normal pulses, Regular rate/rhythm Capillary refill: <2 Seconds Gastrointestinal: Soft and benign, W/out hepatosplenomegaly Musculoskeletal: No clubbing, No swelling, Other (left leg amputation ) Integumentary: No rashes Neurological: Normal speech, Normal strength at 5/5 x4 extr Lymphatics: No axilla or inguinal lymphadenopathy Urinary: Other (No bladder distention) External genitalia: Deferred Rectal: Deferred - Studies Laboratory Data (last 24 hrs) 07/06/19 15:35: PT 14.0 H, INR 1.19 07/06/19 15:35: WBC 11.9 H, Hgb 15.7, Hct 47.1, Plt Count 193 07/06/19 15:35: Sodium 138, Potassium 4.0, BUN 15, Creatinine 0.79, Glucose 107 H, Magnesium 2.0 D, Total Bilirubin 0.8, AST 22, ALT 23, Alkaline Phosphatase 157 H Microbiology Data (last 24 hrs): 07/06/19 15:35 Nasopharnyx Influenza Type A Antigen Screen - Final 07/06/19 15:35 Nasopharnyx Influenza Type B Antigen Screen - Final Assessment & Plan - Problems (Diagnosis) (1) Right lower lobe pneumonia Current Visit: Yes Status: Acute Plan: on antibiotics cultures pending Change antibiotics as well as sensitivities and clinical response (2) CHF (congestive heart failure) Onset Date: 08/13/18 Current Visit: No Status: Chronic Plan: Continue home medications and titrate as needed Qualifiers: Heart failure type: unspecified Heart failure chronicity: acute Qualified Code(s): I50.9 - Heart failure, unspecified (3) COPD exacerbation Onset Date: 08/13/18 Current Visit: No Status: Acute Plan: on bronchodilators steroids Monitor closely Oxygen supplementation (4) CAD (coronary artery disease) Onset Date: 08/13/18 Current Visit: No Status: Chronic Plan: Continue home medications and titrate as needed Qualifiers: Coronary Disease-Associated Artery/Lesion type: [place] artery [place] vs. transplanted heart: [place] heart Associated angina: without angina Qualified Code(s): I25.10 - Atherosclerotic heart disease of [place] coronary artery without angina pectoris (5) HTN (hypertension) Onset Date: 08/13/18 Current Visit: No Status: Chronic Plan: Continue home medications and titrate as needed Qualifiers: Hypertension type: essential hypertension Qualified Code(s): I10 - Essential (primary) hypertension Time Spent Managing Pts Care (In Minutes): 42
--- NOTE | 2019-07-07 09:45 | EKG ---
Test Date: 2019-07-06 Test Time: 15:16:51 [employer]: HELGA MEASUREMENT RESULTS: Intervals: Rate: 104 FL: 116 QRSD: 94 QT: 334 QTc: 439 [place]: P: 98 FL: 116 QRS: 99 T: -74 INTERPRETIVE STATEMENTS: Suspect arm lead reversal, interpretation assumes no reversal Sinus tachycardia with premature supraventricular complexes Rightward axis Left ventricular hypertrophy with repolarization abnormality Abnormal ECG Compared to ECG 08/12/2018 13:36:32 Atrial premature complex(es) now present Left ventricular hypertrophy now present Early repolarization now present Sinus rhythm no longer present Myocardial infarct finding no longer present ST (T wave) deviation no longer present Possible ischemia no longer present Electronically Signed On 07-07-19 09:42:06 HEMSTITCHER by William Jefferson
[2019-07-07] MEDS: ACETAMINOPHEN 500 MG TAB PO PRN (15:04)
[2019-07-07] MEDS: CEFTRIAXONE/SWI 1gm 1 GM/10 ML SYR IV SCH (16:43)
[2019-07-07] MEDS ORDERED: AZITHROMYCIN IV 500 MG in NA CHLORIDE 0.9% 250 ML IVPB SCH (17:00)
[2019-07-07] MEDS: ALBUTEROL 2.5 MG/3 ML NEB SOL NEB PRN (20:10)
[2019-07-07] MEDS: guaiFENesin 100 MG/5 ML UCUP PO PRN (21:03)
[2019-07-07] MEDS: ATORVASTATIN 80 MG TAB PO SCH (21:04)
[2019-07-08] MEDS: METHYLPREDNISOLONE 40 MG INJ IV SCH ×2 (00:02→05:51)
[2019-07-08] MEDS: IPRATROPIUM BROM 0.5MG/2.5ML NEB SCH ×4 (02:00→20:00)
[2019-07-08 05:35] LABS: Absolute Lymphocytes (CBC) 0.5 K/uL (0.7-4.9); Basophils % 0.3 % (0-1.3); Hematocrit 38.9 % (39.6-49.0); MPV 9.1 fL (7.6-11.3)
[2019-07-08 05:50] LABS: BUN Blood Urea Nitrogen 25 mg/dL (7-18); Bicarbonate 31 mmol/L (21-32); Glucose Level 171 mg/dL (74-106); Potassium 4.6 mmol/L (3.5-5.1); Sodium Level 140 mmol/L (136-145)
[2019-07-08] MEDS: METOPROLOL TAR 25 MG TAB PO SCH (05:50)
[2019-07-08] MEDS: PANTOPRAZOLE 40MG TABLET PO SCH ×2 (05:51→20:58)
[2019-07-08] MEDS: LEVOTHYROXINE SOD 0.1 MG TAB PO SCH (05:53)
[2019-07-08] MEDS: ALBUTEROL 2.5 MG/3 ML NEB SOL NEB PRN (07:36)
[2019-07-08] MEDS: GUAIFENESIN 600 MG SA TAB PO SCH ×2 (08:44→20:59)
[2019-07-08] MEDS: lisinopriL 5 MG TAB PO SCH (08:44)
[2019-07-08] MEDS: SERTRALINE HCL 50 MG TAB PO SCH (08:44)
[2019-07-08] MEDS: ASPIRIN 81 MG CHEWABLE TABLET PO SCH (08:44)
[2019-07-08] MEDS: allopurinoL 300 MG TAB PO SCH (08:44)
[2019-07-08] MEDS: FUROSEMIDE 40 MG TABLET PO SCH (08:45)
[2019-07-08] MEDS: NICOTINE 14 MG/PAT TD SCH (08:45)
[2019-07-08] MEDS: HOME MED 1 EA UNK (Umeclidinium Brm/Vilanterol Tr [Anoro Ellipta 62.5-25 Mcg Inh] 1 EACH) IH SCH (08:45)
[2019-07-08] MEDS: predniSONE 20 MG TAB PO SCH ×2 (08:50→20:59)
--- NOTE | 2019-07-08 10:17 | P.PN ---
Subjective Date of Service: 07/08/19 Chief Complaint: Generalized body pain, fever, congestion C/o cough and shortness of breath Slightly better than yesterday but still having the same symptoms Review of Systems 10-point ROS is otherwise unremarkable Physical Examination - Vital Signs Temperature: 98.3 F Blood Pressure: 111/68 Pulse: 76 Respirations: 18 Pulse Ox (%): 99 - Physical Exam General: Alert, In no apparent distress HEENT: Atraumatic, Normocephalic Neck: Supple, 2+ carotid pulse no bruit Respiratory: Diminished, Crackles/rales, Expiratory wheezes Cardiovascular: Regular rate/rhythm, Normal S1 S2 Capillary refill: <2 Seconds Gastrointestinal: Soft and benign, W/out hepatosplenomegaly Musculoskeletal: No swelling, Other (Amputation left foot ) Integumentary: No rashes Neurological: Normal speech, Normal strength at 5/5 x4 extr Lymphatics: No axilla or inguinal lymphadenopathy External genitalia: Deferred Rectal: Deferred Assessment & Plan - Problems (Diagnosis) (1) Right lower lobe pneumonia Current Visit: Yes Status: Acute Plan: on antibiotics cultures pending Change antibiotics as well as sensitivities and clinical response (2) CHF (congestive heart failure) Onset Date: 08/13/18 Current Visit: No Status: Chronic Plan: Continue home medications and titrate as needed Qualifiers: Heart failure type: unspecified Heart failure chronicity: acute Qualified Code(s): I50.9 - Heart failure, unspecified (3) COPD exacerbation Onset Date: 08/13/18 Current Visit: No Status: Acute Plan: on bronchodilators steroids Monitor closely Oxygen supplementation Will get a pulmonology consult (4) CAD (coronary artery disease) Onset Date: 08/13/18 Current Visit: No Status: Chronic Plan: Continue home medications and titrate as needed Qualifiers: Coronary Disease-Associated Artery/Lesion type: [place] artery [place] vs. transplanted heart: [place] heart Associated angina: without angina Qualified Code(s): I25.10 - Atherosclerotic heart disease of [place] coronary artery without angina pectoris (5) HTN (hypertension) Onset Date: 08/13/18 Current Visit: No Status: Chronic Plan: Continue home medications and titrate as needed Qualifiers: Hypertension type: essential hypertension Qualified Code(s): I10 - Essential (primary) hypertension (6) Acute respiratory failure with hypoxia Current Visit: Yes Status: Acute Plan: Patient is on oxygen supplementation Does not have home oxygen Will get a PT assessment Will assess for home oxygen Discuss with case management Discharge Plan: Home Plan to discharge in: 24 Hours Time Spent Managing Pts Care (In Minutes): 43
--- NOTE | 2019-07-08 10:30 | RAD REPORT ---
EXAM DESCRIPTION: RAD - Chest Single View - 07/08/2019 9:39 am CLINICAL HISTORY: SOB Chest pain. COMPARISON: Chest Single View dated 07/06/2019; Chest Pa And Lat (2 Views) dated 04/16/2019; Chest Pa And Lat (2 Views) dated 03/13/2019; Chest Single View dated 08/14/2018 FINDINGS: Portable technique limits examination quality. Improvement in right lung base infiltrate is seen since 07/06/2019. Ill-defined cavitary lesion left apex is seen. The heart is mildly enlarged in size. Sternotomy wires present. IMPRESSION: Improvement in right basilar pneumonia since comparative study.
[2019-07-08 12:55] LABS: Anisocytosis 1+; Blood Morphology Comment NOTED (NOT SEEN); Platelet Estimate ADEQ; Urine White Blood Cell Casts OK
[2019-07-08] MEDS: AZITHROMYCIN 250 MG TAB PO SCH (16:37)
[2019-07-08] MEDS: CEFTRIAXONE/SWI 1gm 1 GM/10 ML SYR IV SCH (16:37)
[2019-07-08] MEDS: ACETAMINOPHEN 500 MG TAB PO PRN (16:42)
[2019-07-08] MEDS: ATORVASTATIN 80 MG TAB PO SCH (20:59)
[2019-07-09] MEDS: IPRATROPIUM BROM 0.5MG/2.5ML NEB SCH ×4 (02:00→19:20)
[2019-07-09] MEDS: LEVOTHYROXINE SOD 0.1 MG TAB PO SCH (05:44)
[2019-07-09] MEDS: PANTOPRAZOLE 40MG TABLET PO SCH ×2 (05:44→20:29)
[2019-07-09] MEDS: METOPROLOL TAR 25 MG TAB PO SCH (05:44)
[2019-07-09 05:50] LABS: Absolute Lymphocytes (CBC) 0.6 K/uL (0.7-4.9); Basophils % 0.2 % (0-1.3); Hematocrit 41.4 % (39.6-49.0); Lymphocytes % 4.1 % (15.3-44.8); MPV 9.5 fL (7.6-11.3); RBC Red Blood Cell Count 4.05 M/uL (4.33-5.43)
[2019-07-09 05:59] LABS: Potassium 4.8 mmol/L (3.5-5.1)
[2019-07-09] MEDS: allopurinoL 300 MG TAB PO SCH (08:11)
[2019-07-09] MEDS: FUROSEMIDE 40 MG TABLET PO SCH (08:11)
[2019-07-09] MEDS: GUAIFENESIN 600 MG SA TAB PO SCH ×2 (08:11→20:29)
[2019-07-09] MEDS: NICOTINE 14 MG/PAT TD SCH (08:11)
[2019-07-09] MEDS: SERTRALINE HCL 50 MG TAB PO SCH (08:11)
[2019-07-09] MEDS: predniSONE 20 MG TAB PO SCH ×2 (08:12→20:29)
[2019-07-09] MEDS: ASPIRIN 81 MG CHEWABLE TABLET PO SCH (08:12)
[2019-07-09] MEDS: lisinopriL 5 MG TAB PO SCH (08:14)
[2019-07-09] MEDS: HOME MED 1 EA UNK (Umeclidinium Brm/Vilanterol Tr [Anoro Ellipta 62.5-25 Mcg Inh] 1 EACH) IH SCH (08:28)
--- NOTE | 2019-07-09 11:54 | P.PN ---
Subjective Date of Service: 07/09/19 Chief Complaint: Generalized body pain, fever, congestion Subjective: No new changes, Improving Still have cough and shortness of breath Slightly better than yesterday but still having the same symptoms Review of Systems 10-point ROS is otherwise unremarkable General: Unremarkable Eyes: Unremarkable Respiratory: Cough, Shortness of Breath Cardiovascular: Unremarkable Physical Examination - Vital Signs Temperature: 97.9 F Blood Pressure: 128/75 Pulse: 63 Respirations: 18 Pulse Ox (%): 96 - Physical Exam General: Alert, In no apparent distress, Oriented x3 HEENT: Atraumatic, Normocephalic Neck: Supple, 2+ carotid pulse no bruit Respiratory: Diminished, Crackles/rales, Expiratory wheezes Cardiovascular: Normal pulses, Regular rate/rhythm Capillary refill: <2 Seconds Gastrointestinal: Soft and benign, W/out hepatosplenomegaly Musculoskeletal: No clubbing, No swelling, Other (left leg amputation ) Integumentary: No rashes Neurological: Normal speech, Normal strength at 5/5 x4 extr Lymphatics: No axilla or inguinal lymphadenopathy External genitalia: Deferred Rectal: Deferred Assessment & Plan - Problems (Diagnosis) (1) Right lower lobe pneumonia Current Visit: Yes Status: Acute Plan: on antibiotics cultures negative so far Monitor closely Qualifiers: Pneumonia type: due to unspecified organism Qualified Code(s): J18.9 - Pneumonia, unspecified organism (2) CHF (congestive heart failure) Onset Date: 08/13/18 Current Visit: No Status: Chronic Plan: Continue home medications and titrate as needed Will get an echocardiogram Qualifiers: Heart failure type: combined systolic and diastolic Heart failure chronicity: acute Qualified Code(s): I50.41 - Acute combined systolic ( congestive) and diastolic (congestive) heart failure (3) COPD exacerbation Onset Date: 08/13/18 Current Visit: No Status: Acute Plan: on bronchodilators steroids Monitor closely Oxygen supplementation pulmonology consult (4) CAD (coronary artery disease) Onset Date: 08/13/18 Current Visit: No Status: Chronic Plan: Continue home medications and titrate as needed Denies any chest pain at this time Qualifiers: Coronary Disease-Associated Artery/Lesion type: [place] artery [place] vs. transplanted heart: [place] heart Associated angina: without angina Qualified Code(s): I25.10 - Atherosclerotic heart disease of [place] coronary artery without angina pectoris (5) HTN (hypertension) Onset Date: 08/13/18 Current Visit: No Status: Chronic Plan: Continue home medications and titrate as needed Qualifiers: Hypertension type: essential hypertension Qualified Code(s): I10 - Essential (primary) hypertension (6) Acute respiratory failure with hypoxia Current Visit: Yes Status: Acute Plan: Patient is on oxygen supplementation Does not have home oxygen Appreciate PT assessment Need home oxygen Discussed with case management Awaiting placement for home oxygen set up Discharge Plan: Home Plan to discharge in: 24 Hours Time Spent Managing Pts Care (In Minutes): 42
--- NOTE | 2019-07-09 14:00 | ECHO ---
HEIGHT: 5 ft 7 in WEIGHT: 128 lb 4.8 oz DATE OF STUDY: 07/09/[address]: Aram Tipton DO 2-DIMENSIONAL: YES M.MODE: YES DOPPLER: YES COLOR FLOW: YES TDS: NO PORTABLE: NO DEFINITY: NO BUBBLE STUDY: NO DIAGNOSIS: CONGESTIVE HEART FAILURE CARDIAC HISTORY: CATHERIZATION: YES SURGERY: YES PROSTHETIC VALVE: NO PACEMAKER: NO MEASUREMENTS (cm) DIASTOLIC (NORMALS) SYSTOLIC (NORMALS) IVSd 0.9 (0.6-1.2) LA Diam 3.7 (1.9-4.0) LVEF 40-45% LVIDd 5.0 (3.5-5.7) LVIDs 3.7 (2.0-3.5) %FS 26% LVPWd 1.0 (0.6-1.2) Ao Diam 2.6 (2.0-3.7) 2 DIMENSIONAL ASSESSMENT: RIGHT ATRIUM: NORMAL LEFT ATRIUM: NORMAL RIGHT VENTRICLE: NORMAL LEFT VENTRICLE: NORMAL TRICUSPID VALVE: NORMAL MITRAL VALVE: NORMAL PULMONIC VALVE: NORMAL AORTIC VALVE: NORMAL PERICARDIAL EFFUSION: NONE AORTIC ROOT: NORMAL LEFT VENTRICULAR WALL MOTION: MILD GLOBAL HYPOKINESIS. DOPPLER/COLOR FLOW: MILD TRICUSPID REGURGITATION NORMAL RIGHT VENTRICULAR SYSTOLIC PRESSURE. COMMENTS: MILD TRICUSPID REGURGITATION NORMAL RIGHT VENTRICULAR SYSTOLIC PRESSURE. MILD GLOBAL HYPOKINESIS EJECTION FRACTION 40-45%. NO EFFUSION. TECHNOLOGIST: TAO MOTA
[2019-07-09] MEDS: AZITHROMYCIN 250 MG TAB PO SCH (16:09)
[2019-07-09] MEDS: CEFTRIAXONE/SWI 1gm 1 GM/10 ML SYR IV SCH (16:09)
[2019-07-09] MEDS: guaiFENesin 100 MG/5 ML UCUP PO PRN (16:51)
[2019-07-09] MEDS ORDERED: PNEUMOCOCCAL VACCINE 0.5 ML IMVAC ONE (17:00)
[2019-07-09] MEDS: ATORVASTATIN 80 MG TAB PO SCH (20:29)
[2019-07-10] MEDS: IPRATROPIUM BROM 0.5MG/2.5ML NEB SCH ×3 (02:15→14:30)
[2019-07-10] MEDS: METOPROLOL TAR 25 MG TAB PO SCH (07:04)
[2019-07-10] MEDS: LEVOTHYROXINE SOD 0.1 MG TAB PO SCH (07:04)
[2019-07-10] MEDS: PANTOPRAZOLE 40MG TABLET PO SCH (07:04)
[2019-07-10] MEDS: FUROSEMIDE 40 MG TABLET PO SCH (08:44)
[2019-07-10] MEDS: GUAIFENESIN 600 MG SA TAB PO SCH (08:45)
[2019-07-10] MEDS: ASPIRIN 81 MG CHEWABLE TABLET PO SCH (08:45)
[2019-07-10] MEDS: NICOTINE 14 MG/PAT TD SCH (08:45)
[2019-07-10] MEDS: allopurinoL 300 MG TAB PO SCH (08:45)
[2019-07-10] MEDS: lisinopriL 5 MG TAB PO SCH (08:45)
[2019-07-10] MEDS: SERTRALINE HCL 50 MG TAB PO SCH (08:45)
[2019-07-10] MEDS: predniSONE 20 MG TAB PO SCH (08:45)
[2019-07-10] MEDS: HOME MED 1 EA UNK (Umeclidinium Brm/Vilanterol Tr [Anoro Ellipta 62.5-25 Mcg Inh] 1 EACH) IH SCH (09:00)
[2019-07-10 10:37] VITALS: O2SAT 95
--- NOTE | 2019-07-10 11:30 | P.CNS ---
Date of Consult: 07/10/19 Chief Complaint: Generalized body pain, fever, congestion History of Present Illness: Patient is 68 years of age well known to me with a history of COPD and pneumonia which was clinically improving came here to the hospital complaining of 2 week onset of feeling dizzy cough tired diagnosed with pneumonia he is back to his baseline denies any fever chills Allergies cold medicine Allergy (Uncoded 07/06/19 18:10) Nervouseness Home Medications: Allopurinol [Zyloprim*] 600 mg PO DAILY 08/13/18 Levothyroxine [Synthroid*] 100 mcg PO [id number] 08/13/18 Sertraline [Zoloft*] 50 mg PO DAILYPRN PRN 08/13/18 Atorvastatin Calcium [Lipitor] 80 mg PO BEDTIME #30 tab 08/15/18 Umeclidinium Brm/Vilanterol Tr [Anoro Ellipta 62.5-25 Mcg INH] 1 each IH DAILY # 1 blst.w.dev 08/15/18 Albuterol Sulfate [Albuterol Sulfate 0.083% Neb Soln] 2.5 mg IH Q6HP PRN Albuterol Sulfate [Proair Hfa] 8.5 gm IH Q6HP PRN 07/06/19 Amlodipine Besylate/Benazepril [Amlodipine-Benazepril 10-20 mg] 1 each PO DAILY 07/06/19 Aspirin/Caffeine [Bc Powder Packet] 1 each PO PRN PRN 07/06/19 Esomeprazole Mag Trihydrate [Nexium] 40 mg PO [id number] 07/06/19 Ranitidine [Zantac] 150 mg PO BID 07/06/19 Tramadol HCl [Ultram] 50 mg PO Q6HP PRN 07/06/19 hydroCHLOROthiazide [Hydrochlorothiazide] 25 mg PO DAILY 07/06/19 - Past Medical/Surgical History Diabetic: No -: HTN -: COPD -: CAD with CABG and stent -: CABG -: Stents - Family History Mother Medical History: Liver disease - Social History Smoking Status: Current every day smoker Alcohol use: Yes CD- Drugs: No Caffeine use: Yes Place of Residence: Home Review of Systems 10-point ROS is otherwise unremarkable General: Weakness Physical Examination Temp Pulse Resp BP Pulse Ox 98.5 F 81 17 142/72 H 98 07/10/19 08:00 07/10/19 08:45 07/10/19 08:00 07/10/19 08:45 07/10/19 08:00 General: Alert, Oriented x3 HEENT: Atraumatic Respiratory: Clear to auscultation bilaterally Cardiovascular: No edema, Regular rate/rhythm, Normal S1 S2 - Problems (1) Right lower lobe pneumonia Current Visit: Yes Status: Acute Plan: Patient is 68 years of age well known to me with a history of COPD and prior history of pneumonia admitted with complaining of cough possible right lower lobe pneumonia is white count is elevated also has an infiltrate in the left upper lobe which was improving clinically I have ordered a CT of the chest with contrast and mold insert changer to p.o. levofloxacin an also and doxycycline patient is at risk for resistant infections white count is elevated vital signs are stable sputum cultures ordered labs reviewed follow with me in [address] in March did show a left upper lobe cavitary pneumonia Qualifiers: Pneumonia type: due to unspecified organism Qualified Code(s): J18.9 - Pneumonia, unspecified organism
--- NOTE | 2019-07-10 13:21 | RAD REPORT ---
EXAM DESCRIPTION: CT - Thorax W/ Con - 07/10/2019 12:46 pm CLINICAL HISTORY: Pneumonia COMPARISON: Portable chest July 16, CT chest May 26 TECHNIQUE: Dynamically enhanced 5 mm thick images of the chest were obtained during administration o f 100 mL non-ionic IV contrast. All CT scans are performed using dose optimization technique as appropriate and may include automated exposure control or mA/KV adjustment according to patient size. FINDINGS: Right lung field is hyper expanded and large relative to the left. This is a chronic prese ntation. There are prominent bullous changes in the right upper lobe. A large air-filled cystic cavit y has progressed in the left apex and lateral left upper lung field. The air-filled cavity extends fr om the apex inferiorly along the lateral chest to the level of the fourth rib. Thickened pleura is pr esent in the left upper lobe and there is nodular lung parenchyma present. The amount of soft tissue opacification has substantially reduced since the March examination. The air-filled cavity component has enlarged. Emphysematous changes are seen in the lingula and left lower lobe. No acute finding of the lingula or left lower lobe parenchyma. A minimal pleural effusion is present in the posterior gu tter on the right, probably loculated. There is left base pleural effusion with partial atelectasis o f the inferior aspect left lower lobe. The pleural fluid has enlarged slightly from March. This is q uestionably loculated. No chest wall mass or abnormal axillary lymphadenopathy. There is left shift of the mediastinum. CABG surgical changes are present. No acute vascular finding. No mediastinal or hilar suspicious process. IMPRESSION: The large consolidated parenchyma in the left upper lobe detailed on March 26 has shown interval chain. The consolidated or soft tissue mass component has substantially enlarged leaving th ickened pleura and some nodular parenchyma. A large 8 centimeter air-filled cystic cavity has developed in the left apex and continues along the lateral upper chest to the level of the fourth rib. Left pleural effusion has enlarged and there is partial atelectasis of the base left lower lobe. Smal l right pleural effusion has developed. Both pleural effusions are questionably loculated. Prominent bullous emphysema changes in the superior right upper lobe. Right hemithorax is hyper expan ded relative to the left. No acute findings in the lingula of the left upper lobe or the left lower l obe.
--- NOTE | 2019-07-10 13:42 | P.DS ---
Admission Date: 07/06/19 Discharge Date: 07/10/19 Primary Care Provider: Dr. Frank Chang; Pulmonary-Dr. Stephens Disposition: ROUTINE DISCHARGE Discharge Condition: GOOD Reason for Admission: Generalized body pain, fever, congestion Consultations: Pulmonary-Dr. Stephens Procedures: CT Scan: FINDINGS: Right lung field is hyper expanded and large relative to the left. This is a chronic presentation. There are prominent bullous changes in the right upper lobe. A large air-filled cystic cavity has progressed in the left apex and lateral left upper lung field. The air-filled cavity extends from the apex inferiorly along the lateral chest to the level of the fourth rib. Thickened pleura is present in the left upper lobe and there is nodular lung parenchyma present. The amount of soft tissue opacification has substantially reduced since the March examination. The air-filled cavity component has enlarged. Emphysematous changes are seen in the lingula and left lower lobe. No acute finding of the lingula or left lower lobe parenchyma. A minimal pleural effusion is present in the posterior gutter on the right, probably loculated. There is left base pleural effusion with partial atelectasis of the inferior aspect left lower lobe. The pleural fluid has enlarged slightly from March. This is questionably loculated. No chest wall mass or abnormal axillary lymphadenopathy. There is left shift of the mediastinum. CABG surgical changes are present. No acute vascular finding. No mediastinal or hilar suspicious process. IMPRESSION: The large consolidated parenchyma in the left upper lobe detailed on March 26 has shown interval chain. The consolidated or soft tissue mass component has substantially enlarged leaving thickened pleura and some nodular parenchyma. A large 8 centimeter air-filled cystic cavity has developed in the left apex and continues along the lateral upper chest to the level of the fourth rib. Left pleural effusion has enlarged and there is partial atelectasis of the base left lower lobe. Small right pleural effusion has developed. Both pleural effusions are questionably loculated. Prominent bullous emphysema changes in the superior right upper lobe. Right hemithorax is hyper expanded relative to the left. No acute findings in the lingula of the left upper lobe or the left lower lobe. ECHO: EF 45% LEFT VENTRICULAR WALL MOTION: MILD GLOBAL HYPOKINESIS. DOPPLER/COLOR FLOW: MILD TRICUSPID REGURGITATION NORMAL RIGHT VENTRICULAR SYSTOLIC PRESSURE. COMMENTS: MILD TRICUSPID REGURGITATION NORMAL RIGHT VENTRICULAR SYSTOLIC PRESSURE. MILD GLOBAL HYPOKINESIS EJECTION FRACTION 40-45%. NO EFFUSION Medical Problem List: Cough, shortness of breath secondary to possible left upper lobe pneumonia complicated with a large 8 cm air filled cystic cavity in the left apex, left pleural fusion and partial atelectasis COPD exacerbation Chronic systolic CHF CAD Hypertension Hypothyroidism Hyperlipidemia GERD Brief History of Present Illness: 68-year-old male with history of CHF, COPD and hypertension. Patient presented with cough, congestion. Chest x-ray showed possible right lower lobe pneumonia. Patient was admitted further evaluation. COPD exacerbation also suspected. Hospital Course: Patient presented with cough, shortness of breath. Initial x-ray showed possible right lower lobe pneumonia. Patient was evaluated and treated for pneumonia and COPD exacerbation. Pulmonology was consulted to further evaluate. Patient is seen by pulmonology as an outpatient. CT scan was ordered. Large consolidated parenchyma in the left upper lobe detailed on March 26 has shown an interval change. Consolidation or soft tissue mass has substantially enlarged leaving thick pleura and some nodular parenchyma. A large right 8 cm air filled cystic cavity has also developed in the left apex. This continues along the lateral upper chest to the level of the 4th rib. Left pleural fusion has some large. Partial atelectasis to the left lower base noted. Small right pleural effusion noted. Prominent bulli changes to the right upper lobe. Case discussed at length with pulmonology. Pulmonology will review CT scan with prior records. Patient will be discharged home. Patient will continue with Augmentin 500 mg twice daily and doxycycline 100 mg twice daily for 10 days. Patient will likely require outpatient bronchoscopy to further assess. This was discussed in detail with the patient. Patient understands. Recommend follow up with pulmonology in 7-14 days. For his COPD patient will continue with prednisone 10 mg 1 pill twice daily for 5 days then 1 pill once daily for 5 days. Patient will continue with his COPD medication- Anoro 1 puff daily and albuterol neb 1 unit dose 3 times a day as needed for shortness of breath. Patient will continue with home oxygen to maintain sats above 93%. Recommend follow up with pulmonology as mentioned above. Patient with chronic systolic CHF. Echocardiogram shows ejection fraction around 40-45%. Patient continue with a 1500 cc per day fluid restriction and low-salt diet. Recommend to monitor weight daily. If his weight increases by more than 5 lb he will need to contact his PCP for further recommendation. Patient will continue with his diuretic medication hydrochlorothiazide 25 mg daily. Patient with hypertension. This has remained stable. At discharge he will continue with his current medication of hydrochlorothiazide 25 mg daily and Norvasc/benazepril 10/20 mg 1 pill once daily. Recommend to maintain blood pressures less 150/80. Further adjustment can be done by his PCP. Patient with hypothyroidism. At discharge he will continue with levothyroxine 100 mcg daily. Patient with GERD. At discharge will continue with Nexium 40 mg daily. No need for Zantac at this time. Patient with hyperlipidemia. At discharge he will continue with Lipitor 80 mg daily. Vital Signs/Physical Exam: Temp Pulse Resp BP Pulse Ox 98.5 F 81 17 142/72 H 98 07/10/19 08:00 07/10/19 08:45 07/10/19 08:00 07/10/19 08:45 07/10/19 08:00 General: Alert, In no apparent distress, Oriented x3, Cooperative HEENT: Atraumatic Neck: Supple Respiratory: Clear to auscultation bilaterally, Normal air movement Cardiovascular: Normal pulses, Regular rate/rhythm Gastrointestinal: Normal bowel sounds, Soft and benign, Non-distended, No masses , No rebound, No guarding Musculoskeletal: No erythema, No tenderness, No warmth Integumentary: No tenderness/swelling, No erythema, No warmth, No cyanosis Neurological: Normal speech, Normal strength at 5/5 x4 extr, Normal tone, Normal affect Laboratory Data at Discharge: WBC 15.7 K/uL (4.3-10.9) H 07/09/19 05:23 Hgb 14.0 g/dL (13.6-17.9) 07/09/19 05:23 Hct 41.4 % (39.6-49.0) 07/09/19 05:23 Plt Count 181 K/uL (152-406) 07/09/19 05:23 PT 14.0 SECONDS (9.5-12.5) H 07/06/19 15:35 INR 1.19 07/06/19 15:35 Sodium 142 mmol/L (136-145) 07/09/19 05:23 Potassium 4.8 mmol/L (3.5-5.1) 07/09/19 05:23 BUN 29 mg/dL (7-18) H 07/09/19 05:23 Creatinine 0.86 mg/dL (0.55-1.3) 07/09/19 05:23 Glucose 167 mg/dL (74-106) H 07/09/19 05:23 Magnesium 2.0 mg/dL (1.8-2.4) D 07/06/19 15:35 Total Bilirubin 0.5 mg/dL (0.2-1.0) 07/07/19 05:06 AST 18 U/L (15-37) 07/07/19 05:06 ALT 17 U/L (12-78) 07/07/19 05:06 Alkaline Phosphatase 122 U/L (45-117) H 07/07/19 05:06 Troponin I 0.02 ng/mL (0.0-0.045) 07/06/19 23:26 Home Medications: Allopurinol [Zyloprim*] 600 mg PO DAILY 08/13/18 Levothyroxine [Synthroid*] 100 mcg PO [id number] 08/13/18 Sertraline [Zoloft*] 50 mg PO DAILYPRN PRN 08/13/18 Atorvastatin Calcium [Lipitor] 80 mg PO BEDTIME #30 tab 08/15/18 Umeclidinium Brm/Vilanterol Tr [Anoro Ellipta 62.5-25 Mcg INH] 1 each IH DAILY # 1 blst.w.dev 08/15/18 Albuterol Sulfate [Albuterol Sulfate 0.083% Neb Soln] 2.5 mg IH Q6HP PRN Albuterol Sulfate [Proair Hfa] 8.5 gm IH Q6HP PRN 07/06/19 Amlodipine Besylate/Benazepril [Amlodipine-Benazepril 10-20 mg] 1 each PO DAILY 07/06/19 Esomeprazole Mag Trihydrate [Nexium] 40 mg PO [id number] 07/06/19 Tramadol HCl [Ultram] 50 mg PO Q6HP PRN 07/06/19 hydroCHLOROthiazide [Hydrochlorothiazide] 25 mg PO DAILY 07/06/19 Amoxicillin/Potassium Clav [Augmentin 500-125 Tablet] 1 each PO BID #20 tablet 07/10/19 Doxycycline Hyclate 100 mg PO BID #20 tablet 07/10/19 predniSONE [Deltasone*] 10 mg PO SEECOM #15 tab 07/10/19 New Medications: Amoxicillin/Potassium Clav [Augmentin 500-125 Tablet] 1 each PO BID #20 tablet Doxycycline Hyclate 100 mg PO BID #20 tablet predniSONE [Deltasone*] 10 mg PO SEECOM #15 tab Patient Discharge Instructions: 1. Recommend follow up with his PCP in 1 week to follow up this hospitalization. 2. Patient presented with cough, shortness of breath. Initial x-ray showed possible right lower lobe pneumonia. Patient was evaluated and treated for pneumonia and COPD exacerbation. Pulmonology was consulted to further evaluate. Patient is seen by pulmonology as an outpatient. CT scan was ordered. Large consolidated parenchyma in the left upper lobe detailed on March 26 has shown an interval change. Consolidation or soft tissue mass has substantially enlarged leaving thick pleura and some nodular parenchyma. A large right 8 cm air filled cystic cavity has also developed in the left apex. This continues along the lateral upper chest to the level of the 4th rib. Left pleural fusion has some large. Partial atelectasis to the left lower base noted. Small right pleural effusion noted. Prominent bulli changes to the right upper lobe. Case discussed at length with pulmonology. Pulmonology will review CT scan with prior records. Patient will be discharged home. Patient will continue with Augmentin 500 mg twice daily and doxycycline 100 mg twice daily for 10 days. Patient will likely require outpatient bronchoscopy to further assess. This was discussed in detail with the patient. Patient understands. Recommend follow up with pulmonology in 7- 14 days. For his COPD patient will continue with prednisone 10 mg 1 pill twice daily for 5 days then 1 pill once daily for 5 days. Patient will continue with his COPD medication-Anoro 1 puff daily and albuterol neb 1 unit dose 3 times a day as needed for shortness of breath. Patient will continue with home oxygen to maintain sats above 93%. Recommend follow up with pulmonology as mentioned above. 3. Patient with chronic systolic CHF. Echocardiogram shows ejection fraction around 40-45%. Patient continue with a 1500 cc per day fluid restriction and low-salt diet. Recommend to monitor weight daily. If his weight increases by more than 5 lb he will need to contact his PCP for further recommendation. Patient will continue with his diuretic medication hydrochlorothiazide 25 mg daily. 4. Patient with hypertension. This has remained stable. At discharge he will continue with his current medication of hydrochlorothiazide 25 mg daily and Norvasc/benazepril 10/20 mg 1 pill once daily. Recommend to maintain blood pressures less 150/80. Further adjustment can be done by his PCP. 5. Patient with hypothyroidism. At discharge he will continue with levothyroxine 100 mcg daily. 6. Patient with GERD. At discharge will continue with Nexium 40 mg daily. No need for Zantac at this time. 7. Patient with hyperlipidemia. At discharge he will continue with Lipitor 80 mg daily. Diet: AHA Activity: Ad mary Time spent managing pt's care (in minutes): 55
[2019-07-10 15:20] VITALS: BP 134/75; TEMP 98.2
== END 2019-07-10 15:56 | disposition home or self-care (01) | DRG 190 ==
LOC: ER 15:01 → ERHOLD 16:20 → 2ND 17:43
PROVIDERS: ADMIT Family Medicine; ATTEND Family Medicine
DX: J44.0 Chronic obstructive pulmonary disease with (acute) lower respiratory infection (principal); J18.9 Pneumonia, unspecified organism; J96.01 Acute respiratory failure with hypoxia; J98.11 Atelectasis; I50.22 Chronic systolic (congestive) heart failure; J44.1 Chronic obstructive pulmonary disease with (acute) exacerbation; E03.9 Hypothyroidism, unspecified; K21.9 Gastro-esophageal reflux disease without esophagitis; E78.5 Hyperlipidemia, unspecified; J98.4 Other disorders of lung; I11.0 Hypertensive heart disease with heart failure; I25.10 Atherosclerotic heart disease of native coronary artery without angina pectoris; Z95.1 Presence of aortocoronary bypass graft; Z95.5 Presence of coronary angioplasty implant and graft; Z23 Encounter for immunization
CPT/HCPCS: 36415; 71045; 71260; 80048; 80053; 80076; 81003; 82550; 82553; 83735; 83880; 84484; 85025; 85610; 87040; 87804; 90471; 90670; 93005; 93306; 94640; 94760; 96361; 96365; 96375; 97116; 97161; 99285; J0456; J0696; J2405; J2920; J2930; J7030; J7512; Q9967

== ENCOUNTER 2019-10-16 17:51 | Emergency (ER) | payer OTHER ==
[2019-10-16 18:38] LABS: Absolute Lymphocytes (CBC) 0.9 K/uL (0.7-4.9); Basophils % 0.9 % (0-1.3); Hematocrit 42.5 % (39.6-49.0); Lymphocytes % 14.5 % (15.3-44.8); MPV 9.4 fL (7.6-11.3)
[2019-10-16 18:46] LABS: Protime INR 1.11
[2019-10-16 18:59] LABS: ALT/SGPT 13 U/L (12-78); AST/SGOT 17 U/L (15-37); Albumin 3.1 g/dL (3.4-5.0); Alkaline Phosphatase 169 U/L (45-117); BUN Blood Urea Nitrogen 12 mg/dL (7-18); Bicarbonate 29 mmol/L (21-32); Bilirubin Direct 0.3 mg/dL (0-0.2); Bilirubin Total 0.7 mg/dL (0.2-1.0); Glucose Level 139 mg/dL (74-106); Lipase 61 U/L (73-393); Potassium 3.5 mmol/L (3.5-5.1); Protein, Total 7.2 g/dL (6.4-8.2); Sodium Level 141 mmol/L (136-145)
[2019-10-16] MEDS ORDERED: IPRATROPIUM BROM 0.5MG/2.5ML ONE (19:11)
[2019-10-16] MEDS ORDERED: LEVALBUTEROL 1.25 MG/3 ML NEB ONE (19:11)
--- NOTE | 2019-10-16 19:26 | RAD REPORT ---
EXAM DESCRIPTION: CTAbdomen Pelvis W Contrast - 10/16/2019 7:10 pm CLINICAL HISTORY: Abdominal pain. ABD PAIN COMPARISON: No comparisons TECHNIQUE: Biphasic CT imaging of the abdomen and pelvis was performed with 100 ml non-ionic IV cont rast. All CT scans are performed using dose optimization technique as appropriate and may include automated exposure control or mA/KV adjustment according to patient size. FINDINGS: Emphysematous lung bases are present with small bilateral pleural effusions, appearing loc ulated on the right. The liver demonstrates no mass or biliary dilatation. Cholelithiasis is noted. The spleen, pancreas, adrenal glands are normal. Bilateral benign appearing renal cysts without hydronephrosis. Heavy atherosclerosis of the abdominal aorta is seen with moderate luminal narrowing present. Right i liac stent is present. No bowel obstruction, free air, free fluid or abscess. Moderate stool is present throughout the colon . Sigmoid diverticulosis without diverticulitis. The appendix is normal. No evidence of significant lymphadenopathy. Lumbosacral degenerative changes are noted. IMPRESSION: Cholelithiasis. Sigmoid diverticulosis coli without diverticulitis. Heavy abdominal aortic atherosclerosis with moderate luminal narrowing.
--- NOTE | 2019-10-16 19:37 | ER ---
Nurse's Notes [facility] Name: Javed Sams Age: 69 yrs Sex: Male : 1950 Arrival Date: 10/16/2019 Time: 17:54 Bed 17 Private MD: Diagnosis: Generalized abdominal pain;Chronic obstructive pulmonary disease with (acute) exacerbation Presentation: 10/16 18:06 Chief complaint: Patient states: black stools x 2 days ago and intermittent abd pain. aa5 Coronavirus screen: The patient has NOT traveled to [place] in the past 14 days. The patient has NOT had contact with known and/or suspected case of Coronavirus. Ebola Screen: Patient negative for fever greater than or equal to 101.5 degrees Fahrenheit, and additional compatible Ebola Virus Disease symptoms. Initial Sepsis Screen: Does the patient meet any 2 criteria? RR > 20 per min. HR > 90 bpm. Yes Does the patient have a suspected source of infection? No. Patient's initial sepsis screen is negative. Risk Assessment: Do you want to hurt yourself or someone else? Patient reports no desire to harm self or others. 18:06 Acuity: LÓPEZ 3 aa5 18:06 Method Of Arrival: Ambulatory aa5 19:40 Onset of symptoms is unknown. rv Historical: - Allergies: 18:08 "cold medicine"; aa5 - PMHx: 18:08 COPD; Hypertension; Hypothyroidism; GI Bleed; aa5 - Immunization history:: Flu vaccine is up to date. - Social history:: Smoking status: Patient reports the use of cigarette tobacco products, smokes one pack cigarettes per day. Screenin:37 Abuse screen: Denies threats or abuse. Denies injuries from another. Nutritional rv screening: No deficits noted. Tuberculosis screening: No symptoms or risk factors identified. Fall Risk None identified. Assessment: 19:35 General: Appears in no apparent distress. comfortable, Behavior is calm, cooperative. rv Pain: Complains of pain in abdomen. Neuro: Level of Consciousness is awake, alert, obeys commands, Oriented to person, place, time, situation. Cardiovascular: Patient's skin is warm and dry. Respiratory: Airway is patent Breath sounds with wheezes bilaterally. GI: Abdomen is flat, non-distended. GI: Bowel sounds present X 4 quads. Derm: Skin is intact. Vital Signs: 18:06 BP 127 / 87; Pulse 97; Resp 24 S; Temp 98.6(TE); Pulse Ox 89% on 3 lpm NC; Weight 56.7 aa5 kg (R); Height 5 ft. 7 in. (170.18 cm) (R); Pain 0/10; 19:40 BP 157 / 89; Pulse 90; Resp 21; Temp 98.8; Pulse Ox 99% ; rv 20:30 BP 137 / 101; Pulse 90; Resp 21; Pulse Ox 100% on 2 lpm NC; rv 20:50 BP 138 / 96; Pulse 89; Resp 17; Temp 98.5; Pulse Ox 100% on 2 lpm NC; rv 18:06 Body Mass Index 19.58 (56.70 kg, 170.18 cm) aa5 ED Course: 17:54 Patient arrived in ED. mr 18:06 Arm band placed on. aa5 18:07 Triage completed. aa5 18:08 Lesley Moulton RN is Primary Nurse. vc 18:09 Geena Lagos FNP-C is PHCP. kb 18:09 Robinson Garcia MD is Attending Physician. kb 18:29 Initial lab(s) drawn, by me, sent to lab. Inserted saline lock: 20 gauge in right dh3 forearm, using aseptic technique. Blood collected. 19:11 CT Abd/Pelvis - IV Contrast Only In Process Unspecified. EDMS 19:38 Patient has correct armband on for positive identification. Bed in low position. Call rv light in reach. Side rails up X 1. Pulse ox on. NIBP on. 19:58 Chest Single View XRAY In Process Unspecified. EDMS 20:54 No provider procedures requiring assistance completed. IV discontinued, intact, rv bleeding controlled, No redness/swelling at site. Pressure dressing applied. Administered Medications: 19:33 Drug: Xopenex (3) 1.25 mg Route: Inhalation; rv 20:48 Follow up: Response: Marked relief of symptoms rv 19:33 Drug: AtroVENT Aerosol 0.5 mg Route: Inhalation; rv 20:48 Follow up: Response: No adverse reaction; Marked relief of symptoms rv 20:32 Drug: predniSONE 60 mg Route: PO; rv 20:49 Follow up: Response: No adverse reaction rv 20:48 Drug: Lasix 40 mg Route: IVP; Site: right forearm; rv 20:49 Follow up: Response: Medication administered at discharge. rv Outcome: 19:37 Discharge ordered by . humberto 20:54 Discharged to home ambulatory, with family. rv 20:54 Condition: improved 20:54 Discharge instructions given to patient, family, Instructed on discharge instructions, follow up and referral plans. medication usage, Demonstrated understanding of instructions, follow-up care, medications, Prescriptions given X 1. 20:55 Patient left the ED. rv Signatures: Dispatcher [employer] EDMS Geena Lagos, FULL CHARGE BOOKKEEPER-C FULL CHARGE BOOKKEEPER-Amina Chris mr Monteiro, Nohemy, RN RN aa5 Lynette Conklin 3 Tian Boone RN RN rv Lesley Moulton RN RN vc
--- NOTE | 2019-10-16 19:37 | EDPHYS ---
Physician Documentation [facility] Name: Javed Sams Age: 69 yrs Sex: Male : 1950 Arrival Date: 10/16/2019 Time: 17:54 Bed 17 Private MD: ED Physician Robinson Garcia HPI: 10/16 18:17 This 69 yrs old Male presents to ER via Ambulatory with complaints of Bloody kb Stools. 18:17 The patient presents to the emergency department with rectal bleeding, black stool. kb Onset: The symptoms/episode began/occurred 3 day(s) ago. Abdominal pain: described as constant, located in the abdomen diffusely. Modifying factors: The symptoms are alleviated by nothing, the symptoms are aggravated by nothing. Associated signs and symptoms: The patient has no apparent associated signs or symptoms. Severity of symptoms: At their worst the symptoms were moderate in the emergency department the symptoms are unchanged. The patient has experienced a previous episode, approximately 16 years ago. The patient has not recently seen a physician. Pt reports black stool for 3 days with abd pain. Historical: - Allergies: 18:08 "cold medicine"; aa5 - PMHx: 18:08 COPD; Hypertension; Hypothyroidism; GI Bleed; aa5 - Immunization history:: Flu vaccine is up to date. - Social history:: Smoking status: Patient reports the use of cigarette tobacco products, smokes one pack cigarettes per day. ROS: 18:17 Constitutional: Negative for fever, chills, and weight loss, ENT: Negative for injury, kb pain, and discharge, Neck: Negative for injury, pain, and swelling, Cardiovascular: Negative for chest pain, palpitations, and edema, Respiratory: Negative for shortness of breath, cough, wheezing, and pleuritic chest pain, Back: Negative for injury and pain, : Negative for injury, bleeding, discharge, and swelling, MS/Extremity: Negative for injury and deformity, Skin: Negative for injury, rash, and discoloration, Neuro: Negative for headache, weakness, numbness, tingling, and seizure. 18:17 Abdomen/GI: Positive for abdominal pain, black/tarry stool. Exam: 18:17 Abdomen/GI: Inspection: abdomen appears normal, Bowel sounds: normal, in all quadrants, kb Palpation: soft, in all quadrants, moderate abdominal tenderness, in all quadrants. 18:17 Constitutional: This is a well developed, well nourished patient who is awake, alert, kb and in no acute distress. Head/Face: Normocephalic, atraumatic. ENT: Nares patent. No nasal discharge, no septal abnormalities noted. Tympanic membranes are normal and external auditory canals are clear. Oropharynx with no redness, swelling, or masses, exudates, or evidence of obstruction, uvula midline. Mucous membranes moist. Neck: Trachea midline, no thyromegaly or masses palpated, and no cervical lymphadenopathy. Supple, full range of motion without nuchal rigidity, or vertebral point tenderness. No Meningismus. Chest/axilla: Normal chest wall appearance and motion. Nontender with no deformity. No lesions are appreciated. Cardiovascular: Regular rate and rhythm with a normal S1 and S2. No gallops, murmurs, or rubs. Normal PMI, no JVD. No pulse deficits. Back: No spinal tenderness. No costovertebral tenderness. Full range of motion. Skin: Warm, dry with normal turgor. Normal color with no rashes, no lesions, and no evidence of cellulitis. MS/ Extremity: Pulses equal, no cyanosis. Neurovascular intact. Full, normal range of motion. Neuro: Awake and alert, GCS 15, oriented to person, place, time, and situation. Cranial nerves II-XII grossly intact. Motor strength 5/5 in all extremities. Sensory grossly intact. Cerebellar exam normal. Normal gait. 18:17 Respiratory: mild respiratory distress is noted, Respirations: labored breathing, that kb is mild, Breath sounds: decreased breath sounds, that are mild, are located in both bases. 19:09 Abdomen/GI: Rectal exam: is unremarkable, rectal tone normal, Stool: brown, guaiac kb negative, the exam is chaperoned by an technical training specialist. Vital Signs: 18:06 BP 127 / 87; Pulse 97; Resp 24 S; Temp 98.6(TE); Pulse Ox 89% on 3 lpm NC; Weight 56.7 aa5 kg (R); Height 5 ft. 7 in. (170.18 cm) (R); Pain 0/10; 19:40 BP 157 / 89; Pulse 90; Resp 21; Temp 98.8; Pulse Ox 99% ; rv 20:30 BP 137 / 101; Pulse 90; Resp 21; Pulse Ox 100% on 2 lpm NC; rv 20:50 BP 138 / 96; Pulse 89; Resp 17; Temp 98.5; Pulse Ox 100% on 2 lpm NC; rv 18:06 Body Mass Index 19.58 (56.70 kg, 170.18 cm) aa5 MDM: 18:09 Patient medically screened. kb 18:28 Data reviewed: vital signs, nurses notes. Data interpreted: Pulse oximetry: on 3L(s) kb per nasal canula, is 89 %. Interpretation: borderline. 19:02 ED course: Pt reports he has COPD, is on oxygen at all times and is breathing like he kb normally does. Denies increased shortness of breath.. 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 19:44 ED course: Pt requests a course of prednisone for his COPD. Family member states his kb breathing has been worse than normal over the past 3 days. 20:28 ED course: O2 sat 100% on home O2 at this time. Pt reports he is feeling better. Asked kb about CHF history. Pt reports he does have a history of CHF and is supposed to take fluid pills, but just hasn't taken them. States he isn't sure why he hasn't been taking them. Family states they will make sure he restarts them. Pt will return for worsening symptoms. 10/16 18:14 Order name: Basic Metabolic Panel; Complete Time: 19:01 kb 10/16 18:14 Order name: CBC with Diff; Complete Time: 18:43 kb 10/16 18:14 Order name: Hepatic Function; Complete Time: 19:01 kb 10/16 18:14 Order name: Lipase; Complete Time: 19:01 kb 10/16 18:14 Order name: Protime (+inr); Complete Time: 18:55 kb 10/16 18:14 Order name: Ptt, Activated; Complete Time: 18:55 kb 10/16 18:14 Order name: IV Saline Lock; Complete Time: 18:32 kb 10/16 18:14 Order name: CT Abd/Pelvis - IV Contrast Only; Complete Time: 19:36 kb 10/16 19:02 Order name: Guiac; Complete Time: 19:31 kb 10/16 19:45 Order name: Chest Single View XRAY; Complete Time: 20:23 kb 10/16 18:14 Order name: Labs collected and sent; Complete Time: 18:32 kb Administered Medications: 19:33 Drug: Xopenex (3) 1.25 mg Route: Inhalation; rv 20:48 Follow up: Response: Marked relief of symptoms rv 19:33 Drug: AtroVENT Aerosol 0.5 mg Route: Inhalation; rv 20:48 Follow up: Response: No adverse reaction; Marked relief of symptoms rv 20:32 Drug: predniSONE 60 mg Route: PO; rv 20:49 Follow up: Response: No adverse reaction rv 20:48 Drug: Lasix 40 mg Route: IVP; Site: right forearm; rv 20:49 Follow up: Response: Medication administered at discharge. rv Disposition: 10/16/19 19:37 Discharged to Home. Impression: Generalized abdominal pain, Chronic obstructive pulmonary disease with (acute) exacerbation. - Condition is Stable. - Discharge Instructions: Chronic Obstructive Pulmonary Disease Exacerbation, Abdominal Pain, Adult, [id number]. - Prescriptions for Prednisone 20 mg Oral Tablet - take 1 tablet by ORAL route once daily for 5 days; 5 tablet. - Medication Reconciliation Form, Thank You Letter, Antibiotic Education, Prescription Opioid Use form. - Follow up: Emergency Department; When: As needed; Reason: Worsening of condition. Follow up: Private Physician; When: 2 - 3 days; Reason: Recheck today's complaints, Continuance of care, Re-evaluation by your physician. Addendum: 10/18/2019 17:51 Co-signature as Attending Physician, Robinson Garcia MD I agree with the assessment and c pardo plan of care. Signatures: Dispatcher [employer] Geena Marquez, BR[employer]HER [employer] SHEARER-C BRUSHER [employer] SHEARER-Robinson Pham MD MD cha Calderon, Audri, RN RN aa5 Tian Boone RN RN rv Corrections: (The following items were deleted from the chart) 10/16 19:09 19:09 Abdomen/GI: Rectal exam: is unremarkable, rectal tone normal, Stool: brown, kb guaiac negative, kb 19:46 19:37 10/16/2019 19:37 Discharged to Home. Impression: Generalized abdominal pain. kb Condition is Stable. Forms are Medication Reconciliation Form, Thank You Letter, Antibiotic Education, Prescription Opioid Use. Follow up: Emergency Department; When: As needed; Reason: Worsening of condition. Follow up: Private Physician; When: 2 - 3 days; Reason: Recheck today's complaints, Continuance of care, Re-evaluation by your physician. kb 19:48 18:17 Constitutional: This is a well developed, well nourished patient who is awake, kb alert, and in no acute distress. Head/Face: Normocephalic, atraumatic. ENT: Nares patent. No nasal discharge, no septal abnormalities noted. Tympanic membranes are normal and external auditory canals are clear. Oropharynx with no redness, swelling, or masses, exudates, or evidence of obstruction, uvula midline. Mucous membranes moist. Neck: Trachea midline, no thyromegaly or masses palpated, and no cervical lymphadenopathy. Supple, full range of motion without nuchal rigidity, or vertebral point tenderness. No Meningismus. Chest/axilla: Normal chest wall appearance and motion. Nontender with no deformity. No lesions are appreciated. Cardiovascular: Regular rate and rhythm with a normal S1 and S2. No gallops, murmurs, or rubs. Normal PMI, no JVD. No pulse deficits. Respiratory: Lungs have equal breath sounds bilaterally, clear to auscultation and percussion. No rales, rhonchi or wheezes noted. No increased work of breathing, no retractions or nasal flaring. Back: No spinal tenderness. No costovertebral tenderness. Full range of motion. Skin: Warm, dry with normal turgor. Normal color with no rashes, no lesions, and no evidence of cellulitis. MS/ Extremity: Pulses equal, no cyanosis. Neurovascular intact. Full, normal range of motion. Neuro: Awake and alert, GCS 15, oriented to person, place, time, and situation. Cranial nerves II-XII grossly intact. Motor strength 5/5 in all extremities. Sensory grossly intact. Cerebellar exam normal. Normal gait. kb 20:55 19:46 10/16/2019 19:37 Discharged to Home. Impression: Generalized abdominal pain; rv Chronic obstructive pulmonary disease with (acute) exacerbation. Condition is Stable. Discharge Instructions: Abdominal Pain, Adult, [id number]. Forms are Medication Reconciliation Form, Thank You Letter, Antibiotic Education, Prescription Opioid Use. Follow up: Emergency Department; When: As needed; Reason: Worsening of condition. Follow up: Private Physician; When: 2 - 3 days; Reason: Recheck today's complaints, Continuance of care, Re-evaluation by your physician. kb
--- NOTE | 2019-10-16 20:09 | RAD REPORT ---
EXAM DESCRIPTION: RAD - Chest Single View - 10/16/2019 7:58 pm CLINICAL HISTORY: DYSPNEA Chest pain. COMPARISON: Chest Single View dated 07/08/2019; Chest Single View dated 07/06/2019; Chest Pa And Lat (2 Views) dated 04/16/2019; Chest Pa And Lat (2 Views) dated 03/13/2019 FINDINGS: Portable technique limits examination quality. Moderate bilateral pulmonary opacities are present, possibly representing pulmonary edema or less lik karyna pneumonia. Cavitary lucency in the left apex is stable since comparative imaging. The heart is mo derately enlarged in size with changes of a prior CABG. Trace pleural effusions bilaterally. IMPRESSION: Mild to moderate CHF.
[2019-10-16] MEDS ORDERED: predniSONE 20 MG TAB ONE (20:13)
[2019-10-16] MEDS ORDERED: FUROSEMIDE 40 MG/4 ML VIAL ONE (20:38)
[2019-10-16 21:06] VITALS: O2SAT 100
[2019-10-16 21:08] VITALS: BP 138/96; TEMP 98.5
--- OUTSIDE RECORDS SUMMARY | 2019-10-16 22:15 | XMS REPORT ---
:1950 Author Organization eClinicalWorks Care Team Providers Name Role Phone Frank Chang Provider Role Unavailable Allergies No Known Allergies Problems Problem Type Condition Code Onset Dates Condition Status Problem Atherosclerosis of coronary artery I25.10 Active of [place] heart Problem Chronic obstructive pulmonary J44.9 Active [...] End Status Dosage System Date Date Levothyroxine [facility] 22636021042 88 MCG Orally Active 1 tablet Sodium Once a day on an empty stomach in the morning Results No Known Results Summary Purpose eClinicalWorks Submission
--- OUTSIDE RECORDS SUMMARY | 2019-10-16 22:15 | XMS REPORT ---
:1950 Author Organization e[employer] Care Team Providers Name Role Phone Frank Chang Provider Role Unavailable Allergies No Known Allergies Problems Problem Type Condition Code Onset Dates Condition Status Problem Atherosclerosis of coronary artery I25.10 Active of [place] heart Problem Chronic obstructive pulmonary J44.9 Active [...] coronary 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 Assessment Chronic obstructive pulmonary J44.9 Active disease, unspecified COPD type Problem Depression with anxiety F41.8 Active Problem Tobacco use disorder F17.200 Active Medications Medication Code Code Instructions Start End Date Status Dosage System Date Albuterol [facility] 44351341026 (2.5 MG/3ML) Active 3 ml as Sulfate 0.083% needed Inhalation every 8 hrs Results No Known Results Summary Purpose eClinicalWorks Submission
--- OUTSIDE RECORDS SUMMARY | 2019-10-16 22:16 | XMS REPORT ---
:1950 Author Organization [employer]Works Care Team Providers Name Role Phone Frank Chang Provider Role Unavailable Allergies No Known Allergies Problems Problem Type Condition Code Onset Dates Condition Status Problem Atherosclerosis of coronary artery I25.10 Active of [place] heart Problem Chronic obstructive pulmonary J44.9 Active [...] coronary 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 Assessment Hyperlipidemia, mixed E78.2 Active Problem Depression with anxiety F41.8 Active Problem Tobacco use disorder F17.200 Active Medications Medication Code System Code Instructions Start End Date Status Dosage Date Lipitor [facility] 34693091729 80 MG Orally Active 1 tablet at Once a day bedtime Results No Known Results Summary Purpose eClinicalWorks Submission
--- OUTSIDE RECORDS SUMMARY | 2019-10-16 22:16 | XMS REPORT ---
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 Assessment Peptic ulcer disease K27.9 Active Assessment Hx of non-ST elevation myocardial I25.2 Active infarction (NSTEMI) Assessment Tobacco use disorder F17.200 Active Assessment Peripheral vascular disease I73.9 Active Assessment Depression with anxiety F41.8 Active Assessment Atherosclerosis of coronary artery I25.10 Active of [place] heart Assessment Hypothyroidism E03.9 Active Problem 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 Assessment Hyperlipidemia, mixed E78.2 Active Problem Tobacco use disorder F17.200 Active Assessment Benign essential HTN I10 Active Problem Atherosclerosis of coronary artery I25.10 Active of [place] heart Problem Chronic obstructive pulmonary J44.9 Active disease, unspecified COPD type Problem Gout of right ankle, unspecified M10.9 Active cause, unspecified chronicity Problem Hx of non-ST elevation myocardial I25.2 Active infarction (NSTEMI) Problem History of left below knee Z89.512 Active amputation Problem Benign essential HTN I10 Active Problem Peripheral vascular disease I73.9 Active Assessment History of left below knee Z89.512 Active amputation Problem Unsteady gait R26.81 Active Assessment DNR (do not resuscitate) Z66 Active Problem Abnormal laboratory test result R89.9 Active Problem Peptic ulc, site unsp, unsp as ac K27.9 Active or chr, w/o hemor or perf Problem Hypercalcemia E83.52 Active Problem 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 Assessment Stented coronary artery Z95.5 Active Problem Peptic ulcer disease K27.9 Active Assessment Chronic obstructive pulmonary J44.9 Active disease, unspecified COPD type Problem Prediabetes R73.09 Active Assessment Allergic rhinitis J30.9 Active Problem Hypothyroidism E03.9 Active Assessment Prediabetes R73.09 Active Problem Allergic rhinitis J30.9 Active Assessment Hypercalcemia E83.52 Active Problem History of CVA (cerebrovascular Z86.73 Active accident) without residual deficits Assessment Gout of right ankle, unspecified M10.9 Active cause, unspecified chronicity Problem Hyperlipidemia, mixed E78.2 Active Problem Stented coronary artery Z95.5 Active Problem Depression with anxiety F41.8 Active Medications Medication Code Code Instructions Start End Status Dosage System Date Date Nexium [facility] 88770147103 40 MG Orally Active 1 capsule Once a day Zantac [facility] 78119305363 150 MG Orally Active 1 tablet Once a day at bedtime ProAir HFA [facility] 23219498778 108 (90 Base) Active 2 puffs as MCG/ACT needed Inhalation every 6 hrs Anoro Ellipta [facility] 74085959771 62.5mcg/25 mcg Active 1 puff Orally once daily Aspir-81 [facility] 37856287786 81 MG Orally Active 1 tablet Once a day Allopurinol [facility] 35659554628 300 MG Orally Active 2 tablet Once a day Levothyroxine [facility] 30485822616 88 MCG Orally Active 1 tablet Sodium Once a day on an empty stomach in the morning Albuterol Sulfate [facility] 86549757330 (2.5 MG/3ML) Active 3 ml as 0.083% needed Inhalation Three times a day Ranexa [facility] 81751241726 500 MG Orally Active 1 tablet Twice a day Ibuprofen [facility] 81776672496 200 MG Orally Active 1 tablet Three times a with food day or milk as needed Lisinopril [facility] 91034702656 5 MG Orally Active 1 tablet Once a day Metoprolol [facility] 21864739607 25 MG Orally Active 1 tablet Tartrate Once a day with food Lipitor [facility] 26799563290 80 MG Orally Active 1 tablet Once a day Zoloft [facility] 44923711916 50 MG Orally Active 1 tablet Once a day Results No Known Results Summary Purpose eClinicalWorks Submission
--- OUTSIDE RECORDS SUMMARY | 2019-10-16 22:16 | XMS REPORT ---
:1950 Author Organization eClinicalWorks Care Team Providers Name Role Phone Ceci Changh Provider Role Unavailable Allergies, Adverse Reactions, Alerts Substance Reaction Event Type Morphine Sulfate Info Not Available Drug Allergy Problems Problem Type Condition Code Onset Dates Condition Status Problem Atherosclerosis of coronary artery I25.10 Active of [place] heart Problem Chronic obstructive pulmonary J44.9 Active [...] residual deficits Problem Hyperlipidemia, mixed E78.2 Active Assessment Hypothyroidism E03.9 Active Problem Stented coronary artery Z95.5 Active Problem 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 Assessment Medication management Z79.899 Active Problem Depression with anxiety F41.8 Active Problem Tobacco use disorder F17.200 Active Medications Medication Code Code Instructions Start End Status Dosage System Date Date Allopurinol [facility] 48558294790 300 MG Orally Active 2 tablet Once a day Metoprolol [place] 35577375856 25 MG Orally Active 1 tablet Tartrate Once a day with food Zantac [facility] 87807655391 150 MG Orally Active 1 tablet Once a day at bedtime as needed ProAir HFA [facility] 75669920948 108 (90 Base) Active 2 puffs MCG/ACT as needed Inhalation every 6 hrs Levothyroxine [facility] 53356881331 100 MCG Orally Inactive 1 tablet Sodium Once a day on an empty stomach in the morning Lisinopril [facility] 98233833811 5 MG Orally Active 1 tablet Once a day Zoloft [facility] 16873367637 50 MG Orally Active 1 tablet Once a day Nexium [facility] 12593361578 40 MG Orally Active 1 capsule Once a day Ranexa [facility] 30264792145 500 MG Orally Active 1 tablet Twice a day Anoro Ellipta [facility] 51606737868 62.5mcg/25 mcg Active 1 puff Orally once daily Albuterol [facility] 27950672060 (2.5 MG/3ML) Active 3 ml as Sulfate 0.083% needed Inhalation Three times a day Tramadol HCl [facility] [address]-92 50 MG Orally Active 1 tablet every 8 hours as needed Ibuprofen [facility] [address]-78 200 MG Orally Active 1 tablet Three times a with food day or milk as needed Aspir-81 [facility] 89967588216 81 MG Orally Active 1 tablet Once a day Lipitor [facility] 68282830456 80 MG Orally Active 1 tablet Once a day Results No Known Results Summary Purpose eClinicalWorks Submission
--- OUTSIDE RECORDS SUMMARY | 2019-10-16 22:16 | XMS REPORT ---
:1950 Author Organization eClinicalWorks Care Team Providers Name Role Phone Frank Chang Provider Role Unavailable Allergies No Known Allergies Problems Problem Type Condition Code Onset Dates Condition Status Problem Atherosclerosis of coronary artery I25.10 Active of [place] heart Problem Chronic obstructive pulmonary J44.9 Active [...] graft Assessment Peptic ulcer disease K27.9 Active Problem Depression with anxiety F41.8 Active Problem Tobacco use disorder F17.200 Active Medications Medication Code System Code Instructions Start End Date Status Dosage Date Nexium [facility] 84564148492 40 MG Orally Once Active 1 capsule a day Results No Known Results Summary Purpose eClinicalWorks Submission
--- OUTSIDE RECORDS SUMMARY | 2019-10-16 22:16 | XMS REPORT ---
:1950 Author Organization eClinicalWorks Care Team Providers Name Role Phone Frank Chang Provider Role Unavailable Allergies No Known Allergies Problems Problem Type Condition Code Onset Dates Condition Status Problem Atherosclerosis of coronary artery I25.10 Active of [place] heart Problem Chronic obstructive pulmonary J44.9 Active [...] End Status Dosage System Date Date Levothyroxine [facility] 44605344417 88 MCG Orally Active 1 tablet Sodium Once a day on an empty stomach in the morning Results No Known Results Summary Purpose eClinicalWorks Submission
--- OUTSIDE RECORDS SUMMARY | 2019-10-16 22:16 | XMS REPORT ---
:1950 Author Organization eClinicalWorks Care Team Providers Name Role Phone Frank Chang Provider Role Unavailable Allergies, Adverse Reactions, Alerts Substance Reaction Event Type Morphine Sulfate Info Not Available Drug Allergy Problems Problem Type Condition Code Onset Dates Condition Status Assessment Hx of non-ST elevation myocardial I25.2 Active infarction (NSTEMI) Assessment History of CVA (cerebrovascular Z86.73 Active accident) without residual deficits Assessment Tobacco use disorder F17.200 Active Assessment Peptic ulcer disease K27.9 Active Assessment Peripheral vascular disease I73.9 Active Assessment Depression with anxiety F41.8 Active Assessment Atherosclerosis of coronary artery I25.10 Active of [place] heart Assessment Hypothyroidism E03.9 Active Assessment Hyperlipidemia, mixed E78.2 Active Problem 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 Assessment Benign essential HTN I10 Active Problem Tobacco use disorder F17.200 Active Assessment Pneumonia of right lower lobe due J18.9 Active to infectious organism Problem Atherosclerosis of coronary artery I25.10 Active of [place] heart Problem Chronic obstructive pulmonary J44.9 Active disease, unspecified COPD type Problem Gout of right ankle, unspecified M10.9 Active cause, unspecified chronicity Problem Hx of non-ST elevation myocardial I25.2 Active infarction (NSTEMI) Problem History of left below knee Z89.512 Active amputation Problem Benign essential HTN I10 Active Problem Peripheral vascular disease I73.9 Active Assessment Hypercalcemia E83.52 Active Problem Unsteady gait R26.81 Active Assessment History of left below knee Z89.512 Active amputation Problem Abnormal laboratory test result R89.9 Active Assessment DNR (do not resuscitate) Z66 Active Problem Peptic ulc, site unsp, unsp as ac K27.9 Active or chr, w/o hemor or perf Problem Hypercalcemia E83.52 Active Problem 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 Assessment Chronic obstructive pulmonary J44.9 Active disease, unspecified COPD type Problem Peptic ulcer disease K27.9 Active Assessment 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 Problem Prediabetes R73.09 Active Assessment Prediabetes R73.09 Active Problem Hypothyroidism E03.9 Active Assessment Stented coronary artery Z95.5 Active Problem Allergic rhinitis J30.9 Active Assessment Gout of right ankle, unspecified M10.9 Active cause, unspecified chronicity Problem History of CVA (cerebrovascular Z86.73 Active accident) without residual deficits Assessment Allergic rhinitis J30.9 Active Problem Hyperlipidemia, mixed E78.2 Active Problem Stented coronary artery Z95.5 Active Problem Depression with anxiety F41.8 Active Medications Medication Code Code Instructions Start End Status Dosage System Date Date [facility] 53766735625 81 MG Orally Active 1 tablet Once a day Lipitor ND 74301420947 80 MG Orally Active 1 tablet Once a day Nexium [facility] 97146807278 40 MG Orally Active 1 capsule Once a day Levothyroxine ND 44817096975 88 MCG Orally Active 1 tablet Sodium Once a day on an empty stomach in the morning ProAir HFA [facility] 75868371809 108 (90 Base) Active 2 puffs as MCG/ACT needed Inhalation every [address] [facility] 12603449624 25 MG Orally Active 1 tablet Tartrate Once a day with food Anoro Ellipta [facility] 69341372810 62.5mcg/25 mcg Active 1 puff Orally once daily Ibuprofen [facility] 51909740035 200 MG Orally Active 1 tablet Three times a with food day or milk as needed Zoloft [facility] 93658783732 50 MG Orally Active 1 tablet Once a day Allopurinol [facility] 21662233965 300 MG Orally Active 2 tablet Once a day Albuterol Sulfate [facility] 48824239241 (2.5 MG/3ML) Active 3 ml as 0.083% needed Inhalation Three times a day Ranexa [facility] 52810329988 500 MG Orally Active 1 tablet Twice a day Zantac ND 91410239229 150 MG Orally Active 1 tablet Once a day at bedtime Lisinopril ND 67855710408 5 MG Orally Active 1 tablet Once a day Results No Known Results Summary Purpose eClinicalWorks Submission
== END 2019-10-16 20:55 | disposition home or self-care (01) ==
LOC: ER 17:51
DX: J44.1 Chronic obstructive pulmonary disease with (acute) exacerbation (principal); I10 Essential (primary) hypertension; F17.210 Nicotine dependence, cigarettes, uncomplicated; Z88.8 Allergy status to other drugs, medicaments and biological substances
CPT/HCPCS: 85025; 80048; 36415; 85610; 80076; 85730; 82272; 83690; 74177; 71045; 96374; 99284; Q9967; J1940; J7512

== ENCOUNTER 2020-06-15 16:13 | Emergency (ER) | payer OTHER ==
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
--- OUTSIDE RECORDS SUMMARY | 2020-06-15 16:16 | XMS REPORT ---
:1950 Author Organization eClinicalWorks Care Team Providers Name Role Phone Frank Chang Provider Role Unavailable Allergies No Known Allergies Problems Problem Type Condition Code Onset Dates Condition Statu s Problem Atherosclerosis of coronary artery I25.10 Active of [place] heart Problem Chronic obstructive pulmonary J44.9 Active disease, unspecified COPD type Problem Gout of right ankle, unspecified M10.9 Active cause, unspecified chronicity Problem Hx of non-ST elevation myocardial I25.2 Active infarction (NSTEMI) Problem Benign essential HTN I10 Active Problem History of left below knee Z89.512 A ctive amputation Problem Peripheral vascular disease I73.9 Active [...] E78.2 Active Problem Stented coronary artery Z95.5 Acti ve Problem 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 Assessment Peptic ulcer disease K27.9 Active Problem Depression with anxiety F41.8 Acti ve Problem Tobacco use disorder F17.200 Active Medications Medication Code System Code Instructions Start End Date Status Dos age Date Nexium [facility] 74652089888 40 MG Orally Once Active 1 capsule a day Results No Known Results Summary Purpose eClinicalWorks Submission
--- OUTSIDE RECORDS SUMMARY | 2020-06-15 16:16 | XMS REPORT | Continuity of Care Document ---
:1950 Author Organization [facility] t Address [address] [place] [address] Care Team Providers Name Role Phone Unavailable Unavailable Unavailable Problems This patient has no known problems. Allergies, Adverse Reactions, Alerts Allergy Allergy Status Severity Reaction(s) Onset Inactive Treating Comm ents Source Name Type Date Date Clinician Morphine Adverse Active Info Not [facility] S[facility] Reaction Available [facility] Medications Ordered Filled Start Stop Current Ordering Indication Dosage Frequency Signature Comments Components Source Medication Medication Date Date Medication? Clinician (SIG) Name Name Nexium Nexium Yes Frank [address] [facility] Immunizations Ordered Filled Immunization Date Status Comments Sourc e Immunization Name Name FluAD FluAD 2019-04-[address] [facility] Procedures This patient has no known procedures. Encounters Start End Encounter Admission Attending Care Care Encounter Source Date/Time Date/Time Type Type Clinicians Facility Department ID 2020-05-27 2020-05-27 Outpatient [facility] [id number] [facility] 2020-05-25 2020-05-25 Outpatient [facility] [id number] [facility] 2020-05-25 2020-05-25 Outpatient [facility] [id number] [facility] Clin[facility] 2020-05-18 2020-05-18 Outpatient [facility] [id number] [facility] Outpat[facility] ent Clinics 2020-04-26 2020-04-26 [facility] [id number] [facility] 09:52:00 09:52:00 [facility] [employer] [facility] Medicine Outpati ent Clinics 2020-02-23 2020-02-23 [facility] [id number] 14:30:00 14:30:00 [facility] [employer] [facility] Medicine Outpati ent Clinics 2019-12-30 2019-12-30 [facility] [id number] 10:40:00 10:40:00 [facility] Medicine Outpati ent Clinics 2019-12-24 2019-12-24 [facility] [id number] 16:41:00 16:41:00 [facility] [employer] [facility] Medicine Outpati ent Clinics 2019-11-23 2019-11-23 [facility] [id number] 14:00:00 14:00:00 [facility] [employer] [facility] Medicine Outpati ent Clinics 2019-11-05 2019-11-05 [facility] [id number] 14:59:00 14:59:00 t [employer] s - Drive [facility] Medicine Outpati ent Clinics 2019-10-12 2019-10-12 [facility] [id number] 11:27:00 11:27:00 [employer] [facility] Medicine Outpati ent Clinics 2019-10-02 2019-10-02 [facility] [id number] [address] 09:03:00 09:03:00 [facility] [employer] [facility] Medicine Outpati ent Clinics 2019-09-28 2019-09-28 [facility] [id number] 13:16:00 13:16:00 t [employer] - [facility] Medicine Outpati ent Clinics 2019-08-31 2019-08-31 [facility] [id number] 14:00:00 14:00:00 t [employer] Luke s - Drive [facility] Medicine l Medicine Outpati ent Clinics 2019-08-24 2019-08-24 [facility] [id number] 11:45:00 11:45:00 t [employer] Luke s - Drive [facility] Medicine l Medicine Outpati ent Clinics 2019 2019 [facility] [id number] 11:00:00 11:00:00 t [employer] Luke s - Drive [facility] Medicine l Medicine Outpati ent Clinics 2019-07-06 2019-07-06 [facility] [id number] 13:59:00 13:59:00 t [employer] s - Drive [facility] Medicine l Medicine Outpati ent Clinics 2019-06-04 2019-06-04 [facility] [id number] 14:23:00 14:23:00 t [employer] Luke s - Drive [facility] Medicine l Medicine Outpati ent Clinics 2019-05-18 2019-05-18 [facility] [id number] 09:47:00 09:47:00 t [facility] [employer] s - Drive [facility] Medicine l Medicine Outpati ent Clinics 2019-05-04 2019-05-04 [facility] [id number] 13:52:00 13:52:00 t [employer] Luke s - Drive [facility] Medicine Medicine Outpati ent Clinics 2019-04-29 2019-04-29 [facility] [id number] 14:30:00 14:30:00 t [employer] Luke s - Drive [facility] Medicine Medicine Outpati ent Clinics 2019-04-27 2019-04-27 [facility] [id number] 10:20:00 10:20:00 t [employer] - Drive [facility] l Medicine Outpati ent Clinics 2019-02-06 2019-02-06 [facility] [id number] 08:31:00 08:31:00 t [employer] s - Drive [facility] Outpati ent Clinics 2019-01-02 2019-01-02 [facility] [id number] 11:08:00 11:08:[address] - [address] [facility] Medicine l Medicine Outpati ent Clinics 2018-12-23 2018-12-23 [facility] [id number] 15:00:00 15:00:[address] - [address] [facility] Medicine l Medicine Outpati ent Clinics 2018-12-08 2018-12-08 [facility] [id number] 13:58:00 13:58:[address] - [address] [facility] Medicine l Medicine Outpati ent Clinics 2018-12-04 2018-12-04 [facility] [id number] 11:57:00 11:57:00 t [employer] Luke s - Drive [facility] Medicine l Medicine Outpati ent Clinics 2018-12-01 2018-12-01 [facility] [id number] 14:49:00 14:49:[address] - [address] [facility] Medicine l Medicine Outpati ent Clinics 2018-10-30 2018-10-30 [facility] [id number] 11:15:00 11:15:00 t [employer] Luke s - Drive [facility] Medicine l Medicine Outpati ent Clinics 2018-10-28 2018-10-28 [facility] [id number] 16:53:00 16:53:[address] - [address] [facility] Medicine l Medicine Outpati ent Clinics 2018-10-24 2018-10-24 [facility] [id number] 16:00:00 16:00:[address] - [address] [facility] Medicine l Medicine Outpati ent Clinics 2018-09-17 2018-09-17 [facility] [id number] 13:45:00 13:45:[address] - [address] [facility] Medicine l Medicine Outpati ent Clinics 2018-03-18 2018-03-18 [facility] [id number] 10:15:00 10:15:00 t [employer] [address] s - Drive [facility] Medicine Outpati ent Clinics Results This patient has no known results.
--- OUTSIDE RECORDS SUMMARY | 2020-06-15 16:16 | XMS REPORT ---
:1950 Author Organization [facility] Address [address] [place] [place] [address] Care Team Providers Name Role Phone Bernardo Unavailable [phone] PROBLEMS Type Condition ICD9-CM IBO46-RO Onset Condition SNOMED Code Notes Code Code Dates Status Problem Peptic ulcer K27.9 Active 96868439 disease Problem Allergic rhinitis J30.9 Active 72744595 Problem Stented coronary Z95.5 Active 913577859 artery Problem Prediabetes R73.09 Active 084778349 Problem History of CVA Z86.73 Active 694821197 (cerebrovascular accident) without residual deficits Problem Depression with F41.8 Active 583320608 anxiety Problem History of Z95.1 Active 061347063 coronary artery bypass graft Problem Hyperlipidemia, E78.2 Active 145955502 mixed Problem Gout of right M10.9 Active 753788130 ankle, unspecified cause, unspecified chronicity Problem Chronic J44.9 Active 93497802 obstructive pulmonary disease, unspecified COPD type Problem Peptic ulc, site K27.9 Active 53578623 unsp, unsp as ac or chr, w/o hemor or perf Problem Hx of non-ST I25.2 Active 744872427 elevation myocardial infarction (NSTEMI) Problem Atherosclerosis of I25.10 Active 1286513677340 03 coronary artery of [place] heart Problem Benign essential I10 Active 05993848 HTN Problem Unsteady gait R26.81 Active 670327983 Problem Tobacco use F17.200 Active 921553459 disorder Problem Peripheral I73.9 Active 487591215 vascular disease Problem Hypothyroidism E03.9 Active 38448682 Problem Abnormal R89.9 Active 712440698 laboratory test result Problem 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 Active 581973824 deficiency Problem Hypercalcemia E83.52 Active 70054675 Problem History of left Z89.512 Active 156013969 below knee amputation ALLERGIES Allergen (clinical drug Drug/Non Drug Allergy Reaction Allergy Type Onset Date Status ingredient) documented on EMR morphine Morphine Sulfate(NDC Unknown Drug Allergy Ac tive Code:[address]-45) ENCOUNTERS from 1950 to 2020-05-19 Encounter Location Date Provider Diagnosis [facility] [address] Apr, 2020 [place] [address] IMMUNIZATIONS Vaccine Route Administration Date Status FluAD IM Intramuscular Apr 29, 2019 Administered SOCIAL HISTORY Tobacco Use: Social History Observation Description Date Details (start date - stop date) Current Smoker Sex Assigned At : Social History Observation Description Sex Assigned At Unknown PHQ9 Question Answer Notes Little interest or pleasure in doing things Not at all Feeling down, depressed, or hopeless Not at all Trouble falling or staying asleep or sleeping too much Not a t all Feeling tired or having little energy Nearly every day Poor appetite or overeating Not at all [...] a lot more than usual Total Score 3 Interpretation Minimal Depression Thoughts that you would [...] REASON FOR REFERRAL No Information VITAL SIGNS No information MEDICATIONS Medication SIG (Take, Route, Start Date End Date Status Frequency, Duration) ProAir HFA 108 (90 Base) 2 puffs as needed Active MCG/ACT Inhalation every 6 hrs for 90 days Levothyroxine Sodium 88 MCG 1 tablet on an empty Active stomach in the morning Orally Once a day for 90 days Tramadol HCl 50 MG 1 tablet as needed Orally Active every 8 hours Zantac 150 MG 1 tablet at bedtime Orally Active Once a day for 90 days Ranexa 500 MG 1 tablet Orally Twice a day Active for 90 days Albuterol Sulfate (2.5 MG/3ML) 3 ml as needed Inhalation Active 0.083% Three times a day for 90 days Lisinopril 2.5 MG 1 tablet Orally Once a day Active for 90 days Metoprolol Tartrate 25 MG 0.5 tablet with food Orally Active Once a day for 90 days Allopurinol 300 MG 2 tablet Orally Once a day Active for 90 days Anoro Ellipta 62.5mcg/25 mcg 1 puff Orally once daily Active for 90 days Ibuprofen 200 MG 1 tablet with food or milk Active as needed Orally Three times a day Lipitor 80 MG 1 tablet Orally Once a day Active for 90 days Nexium 40 MG 1 capsule Orally Once a day Active for 90 days Zoloft 50 MG 1 tablet Orally Once a day A ctive for 90 days Aspir-81 81 MG 1 tablet Orally Once a day Active PROCEDURES No Information RESULTS No Results REASON FOR VISIT BP low MEDICAL (GENERAL) HISTORY Type Description Date Medical [...] No Information FUNCTIONAL STATUS No Information ASSESSMENTS No Information PLAN OF TREATMENT Medication Medication Name Sig Start Date Stop Date Albuterol Sulfate (2.5 MG/3ML) 3 ml as needed Inhalation 0.083% Three times a day for 90 days Nexium 40 MG 1 capsule Orally Once a day for 90 days Ranexa 500 MG 1 tablet Orally Twice a day for 90 days Zantac 150 MG 1 tablet at bedtime Orally Once a day for 90 days Lipitor 80 MG 1 tablet Orally Once a day for 90 days Lisinopril 2.5 MG 1 tablet Orally Once a day for 90 days Zoloft 50 MG 1 tablet Orally Once a day for 90 days Allopurinol 300 MG 2 tablet Orally Once a day for 90 days Metoprolol Tartrate 25 MG 0.5 tablet with food Orally Once a day for 90 days Levothyroxine Sodium 88 MCG 1 tablet on an empty stomach in the morning Orally Once a day for 90 days Anoro Ellipta 62.5mcg/25 mcg 1 puff Orally once daily for 90 days ProAir HFA 108 (90 Base) MCG/ACT 2 puffs as needed Inhalation every 6 hrs for 90 days Aspir-81 81 MG 1 tablet Orally Once a day Next Appt Details Provider Name:Frank Chang, 2020-05-25 0 1:00:00 PM, [address], [facility] [address], [place], [address], Provider Name:Frank Chang, 2020-05-25 0 1:20:00 PM, [address], [facility] [address], [place], [address], Insurance Providers Payer Name Payer Address Payer Insured Patient Coverage Cover age Phone Name Relationship to Start Date End Date Insured MEDICARE Attn Part B [id number] Angelic Sams self 2014 [employer] Claims [address] [facility] [id number] [facility] [address] [phone] Angelic Sams self [facility] [address] [id number]
--- OUTSIDE RECORDS SUMMARY | 2020-06-15 16:17 | XMS REPORT ---
:1950 Author Organization [facility] Address [address] [place] [place] [address] Care Team Providers Name Role Phone Bernardo Unavailable [phone] PROBLEMS Type Condition ICD9-CM [id number] Onset Condition SNOMED Code Notes Code Code Dates Status Problem Benign essential I10 Active 84615548 HTN Problem Peripheral vascular I73.9 Active 746750971 disease Problem Allergic rhinitis J30.9 Active 67937578 Problem Hypothyroidism E03.9 Active 05131508 Problem Prediabetes R73.09 Active 149296099 Problem Peptic ulcer K27.9 Active 33759842 disease Problem Hypercalcemia E83.52 Active 73791060 Problem 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 Active 290245743 deficiency Problem History of coronary Z95.1 Active 392955285 artery bypass graft Problem Hyperlipidemia, E78.2 Active 235698711 mixed Problem Atherosclerosis of I25.10 Active 4507147913617 03 coronary artery of [place] heart Problem Tobacco use F17.200 Active 776238240 disorder Problem Chronic obstructive J44.9 Active 89585967 pulmonary disease, unspecified COPD type Problem Gout of right M10.9 Active 942776490 ankle, unspecified cause, unspecified chronicity Problem Peptic ulc, site K27.9 Active 71759751 unsp, unsp as ac or chr, w/o hemor or perf Problem Abnormal laboratory R89.9 Active 707413945 test result Problem History of left Z89.512 Active 756958841 below knee amputation Problem Hx of non-ST I25.2 Active 832210974 elevation myocardial infarction (NSTEMI) Problem Unsteady gait R26.81 Active 294883978 Problem Current chronic use Z79.52 Active 538386220544 103 of systemic steroids Problem Depression with F41.8 Active 146784146 anxiety Problem Leukocytosis, D72.829 Active 482846798 unspecified type Problem Stented coronary Z95.5 Active 984917535 artery Problem History of CVA Z86.73 Active 563214871 (cerebrovascular accident) without residual deficits Problem Amputation of left S88.112A Active 012463783 lower extremity below knee Problem Cardiorespiratory R09.2 Active 543547307 failure as a complication of care Problem Supplemental oxygen Z99.81 Active 418234330886 dependent Problem Current moderate F32.1 Active 94226323 episode of major depressive disorder without prior episode ALLERGIES Allergen (clinical drug Drug/Non Drug Allergy Reaction Allergy Type Onset Date Status ingredient) documented on EMR morphine Morphine Sulfate([facility] Unknown Drug Allergy Ac tive Code:[address]-40) ENCOUNTERS from 1950 to 2020-05-27 Encounter Location Date Provider Diagnosis [facility] [address] [facility] May, [facility] Chang Hyp othyroidism E03.9 Family Medicine [address] [place] [address] IMMUNIZATIONS Vaccine Route Administration Date Status FluAD [...] Information RESULTS No Results REASON FOR VISIT Levothyroxine refill MEDICAL (GENERAL) HISTORY Type Description Date Medical [...] Information ASSESSMENTS Encounter Date Diagnosis Notes May, Hypothyroidism (ICD-10 - E03.9) PLAN OF TREATMENT Medication Medication Name Sig [...] MCG/INH for 30 days Next Appt Details Provider Name:Frank Chang, 2020-08-17 0 1:30:00 PM, [address], [address], [place], [address], Provider Name:Frank Chang, 2020-08-25 0 2:40:00 PM, [address], [address], [place], [address], Insurance Providers Payer Name Payer Address Payer Insured Patient Coverage Cover age Phone Name Relationship to Start Date End Date Insured [facility] [address] [phone] Angelic Sams self [facility] [address] [phone] MEDICARE Attn Part B [id number] Angelic Sams self 2014 [employer] Claims [address] [facility] [id number]
[2020-06-15] MEDS ORDERED: ONDANSETRON 4 MG/2 ML VIAL ONE (16:50)
[2020-06-15] MEDS ORDERED: FENTANYL CITR 100 MCG/2 ML ONE (16:50)
--- NOTE | 2020-06-15 17:29 | RAD REPORT ---
EXAM DESCRIPTION: RAD - Shoulder Left 2 View - 06/15/2020 5:04 pm CLINICAL HISTORY: Left shoulder pain FINDINGS: Anterior dislocation left humeral head. No fracture is seen. 10 centimeter cavity left upper lobe
[2020-06-15] MEDS ORDERED: MEPERIDINE HCL 50 MG/ML ONE (17:52)
--- NOTE | 2020-06-15 18:06 | EDPHYS ---
Physician Documentation [facility] Name: Javed Sams Age: 69 yrs Sex: Male : 1950 Arrival Date: 06/15/2020 Time: 16:14 Bed 8 Private MD: ED Physician Jarret Hernandez HPI: 06/15 16:31 This 69 yrs old Male presents to ER via Wheelchair with complaints of jr8 Dislocated Shoulder. 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 The jr8 patient lifted his shoulder and suddenly felt a "pop" followed by severe pain. States that he has dislocated that shoulder 6 times in the past. Denies taking any medication at home for pain. States he is unable to abduct shoulder. Denies any other symptoms at this time.. Historical: - Allergies: 16:28 "cold medicine"; ll1 - PMHx: 16:28 COPD; Hypertension; GI Bleed; Hypothyroidism; ll1 - Immunization history:: Flu vaccine is up to date. - Social history:: Smoking status: Patient reports the use of cigarette tobacco products, smokes one-half pack cigarettes per day. ROS: 17:53 Eyes: Negative for injury, pain, redness, and discharge, ENT: Negative for injury, jr8 pain, and discharge, Neck: Negative for injury, pain, and swelling, Cardiovascular: Negative for chest pain, palpitations, and edema, Respiratory: Negative for shortness of breath, cough, wheezing, and pleuritic chest pain, Abdomen/GI: Negative for abdominal pain, nausea, vomiting, diarrhea, and constipation, Back: Negative for injury and pain, Skin: Negative for injury, rash, and discoloration, Neuro: Negative for headache, weakness, numbness, tingling, and seizure. 17:53 MS/extremity: Positive for decreased range of motion, deformity, pain, of the left shoulder. Exam: 17:53 Constitutional: This is a well developed, well nourished patient who is awake, alert, jr8 and in no acute distress. Cardiovascular: Regular rate and rhythm with a normal S1 and S2. No gallops, murmurs, or rubs. Normal PMI, no JVD. No pulse deficits. Respiratory: Lungs have equal breath sounds bilaterally, clear to auscultation and percussion. No rales, rhonchi or wheezes noted. No increased work of breathing, no retractions or nasal flaring. Skin: Warm, dry with normal turgor. Normal color with no rashes, no lesions, and no evidence of cellulitis. Neuro: Awake and alert, GCS 15, oriented to person, place, time, and situation. Cranial nerves II-XII grossly intact. Motor strength 5/5 in all extremities. Sensory grossly intact. Cerebellar exam normal. Normal gait. 17:53 Musculoskeletal/extremity: Extremities: grossly normal except: noted in the left shoulder: Step off noted at deltoid with anterior fullness suggestive of dislocation of humeral head from glenoid cavity. 2+ radial pulse present with normal sensation and range of motion of wrist, elbow, and hand. Rest of extremities unremarkable . Vital Signs: 16:20 BP 158 / 87; Pulse 77; Resp 22; Pulse Ox 91% on R/A; vg1 16:26 BP 158 / 87; Pulse 89; Resp 20; Temp 99.1; Pulse Ox 96% ; Pain 10/10; ll1 17:06 BP 143 / 57; Pulse 68; Resp 22; Pulse Ox 90% on R/A; vg1 17:45 Pain 10/10; vg1 17:53 BP 117 / 71; Pulse 72; Resp 16; Pulse Ox 97% on 2 lpm NC; sv 18:00 BP 128 / 63; Pulse 72; Resp 18; Pulse Ox 98% on 2 lpm NC; vg1 Procedures: 17:53 Splinting: Splint applied to left shoulder using sling, applied by myself. nurse. post jr8 reduction film - reveals normal alignment, Examined by me, post splint application: neurovascular intact, 2+ distal pulses palpable, brisk capillary refill noted, Patient tolerated well. Reduction: of the left shoulder, using traction, manipulation, Immobilized with sling, Patient tolerated well. Post reduction film - reveals normal alignment. MDM: 16:22 Patient medically screened. jr8 17:53 Data reviewed: vital signs, nurses notes, radiologic studies, plain films. Data jr8 interpreted: Pulse oximetry: on room air is 97 %. Interpretation: normal. Counseling: I had a detailed discussion with the patient and/or guardian regarding: the historical points, exam findings, and any diagnostic results supporting the discharge/admit diagnosis, radiology results, the need for outpatient follow up, a orthopedic surgeon, to return to the emergency department if symptoms worsen or persist or if there are any questions or concerns that arise at home. ED course: Patient with moderate COPD with low oxygen saturation. Elected not to sedate for reduction. Patient did very well and procedure was successful . 06/15 16:27 Order name: XRAY Shoulder LEFT 2 view; Complete Time: 17:33 jr8 06/15 18:01 Order name: XRAY Shoulder (1 View); Complete Time: 18:15 jr8 06/15 16:30 Order name: IV; Complete Time: 16:54 jr8 Administered Medications: 16:45 Drug: fentaNYL (PF) 50 mcg {Note: rass 0.} Route: IVP; Site: right forearm; vg1 17:45 Follow up: Pain 05/28 Adult; Response: No adverse reaction; Other; RASS: Alert and Calm vg1 (0); Patient stated "pain is a little better" 16:45 Drug: Zofran (Ondansetron) 4 mg Route: IVP; Site: right forearm; vg1 17:44 Follow up: Response: No adverse reaction vg1 17:40 Drug: Demerol 25 mg {Note: rass1.} Route: IVP; Site: right forearm; sv 17:51 Follow up: Response: No adverse reaction; Marked relief of symptoms; Pain is decreased; sv RASS: Drowsy (-1) 17:45 Drug: Demerol - Meperidine 12.5 mg {Note: rass1.} Route: IVP; Site: right forearm; sv 17:52 Follow up: Response: No adverse reaction; Pain is decreased; RASS: Drowsy (-1) sv Disposition: 18:13 Co-signature as Attending Physician, Jarret Hernandez MD. ma2 Disposition: 06/15/20 18:05 Discharged to Home. Impression: Recurrent dislocation, left shoulder. - Condition is Stable. - Discharge Instructions: Shoulder Dislocation, Surgery for Recurrent Shoulder Laxity and Instability, Care After with Rehab. - Prescriptions for Tylenol- Codeine #3 300-30 mg Oral Tablet - take 2 tablets by ORAL route every 6 hours As needed; 12 tablet. - Family Work Release, Medication Reconciliation Form, Thank You Letter, Antibiotic Education, Prescription Opioid Use form. - Follow up: Eric Liu MD; When: 2 - 3 days; Reason: Recheck today's complaints, Continuance of care, Re-evaluation by your physician. - Problem is new. - Symptoms have improved. Signatures: Dispatcher [employer] Jacki Aggarwal, RN RN Nirav Dailey PA PA jr8 Jarret Hernandez MD MD ma2 Rika Scanlon RN RN vg1 Juanita Huang RN RN ll1 Corrections: (The following items were deleted from the chart) 18:21 18:05 06/15/2020 18:05 Discharged to Home. Impression: Recurrent dislocation, left vg1 shoulder. Condition is Stable. Forms are Medication Reconciliation Form, Thank You Letter, Antibiotic Education, Prescription Opioid Use. Follow up: Dr. Eric Liu; When: 2 - 3 days; Reason: Recheck today's complaints, Continuance of care, Re-evaluation by your physician. Problem is new. Symptoms have improved. jr8
--- NOTE | 2020-06-15 18:06 | ER ---
Nurse's Notes [facility] Name: Javed Sams Age: 69 yrs Sex: Male : 1950 Arrival Date: 06/15/2020 Time: 16:14 Bed 8 Private MD: Diagnosis: Recurrent dislocation, left shoulder Presentation: 06/15 16:26 Chief complaint: Patient states: Left shoulder pain after lifting left arm just SIZE TESTER. ll1 Thinks its dislocated again. Coronavirus screen: Client denies travel out of the [place] in the last 14 days. At this time, the client does not indicate any symptoms associated with coronavirus-19. Normal SOB for him and COPD. Ebola Screen: Patient denies travel to an Ebola-affected area in the 21 days before illness onset. Initial Sepsis Screen: Does the patient meet any 2 criteria? No. Patient's initial sepsis screen is negative. Does the patient have a suspected source of infection? Yes: Bone or joint infection. Risk Assessment: Do you want to hurt yourself or someone else? Patient reports no desire to harm self or others. Onset of symptoms was June 15, 2020. 16:26 Method Of Arrival: Wheelchair ll1 16:26 Acuity: LÓPEZ 2 ll1 Historical: - Allergies: 16:28 "cold medicine"; ll1 - PMHx: 16:28 COPD; Hypertension; GI Bleed; Hypothyroidism; ll1 - Immunization history:: Flu vaccine is up to date. - Social history:: Smoking status: Patient reports the use of cigarette tobacco products, smokes one-half pack cigarettes per day. Screenin:25 Abuse screen: Denies threats or abuse. Nutritional screening: No deficits noted. vg1 Tuberculosis screening: No symptoms or risk factors identified. Fall Risk No fall in past 12 months (0 pts). No secondary diagnosis (0 pts). IV access (20 points). Ambulatory Aid- None/Bed Rest/Nurse Assist (0 pts). Gait- Normal/Bed Rest/Wheelchair (0 pts) Mental Status- Oriented to own ability (0 pts). Total Rose Fall Scale indicates No Risk (0-24 pts). Assessment: 16:25 General: Appears in no apparent distress. slender, Behavior is cooperative, anxious. vg1 Pain: Complains of pain in Left Shoulder Pain currently is 10 out of 10 on a pain scale. Pain began 1 hour ago. Neuro: Level of Consciousness is awake, alert, obeys commands, Oriented to person, place, time, situation. Cardiovascular: Capillary refill < 3 seconds in bilateral fingers Patient's skin is warm and dry. Respiratory: Airway is patent Respiratory effort is even, unlabored, Respiratory pattern is regular, symmetrical. GI: No signs and/or symptoms were reported involving the gastrointestinal system. : No signs and/or symptoms were reported regarding the genitourinary system. EENT: No signs and/or symptoms were reported regarding the EENT system. Derm: Skin is intact, Skin is pink, warm \\T\\ dry. Musculoskeletal: Range of motion: limited in left shoulder. 17:40 Reassessment: Nirav BUSTAMANTE at the bedside to reduce the left shoulder. sv 17:58 Reassessment: Patient appears in no apparent distress at this time. Patient and/or sv family updated on plan of care and expected duration. Pain level reassessed. Patient is alert, oriented x 3, equal unlabored respirations, skin warm/dry/pink. Patient states feeling better. Patient states symptoms have improved. Vital Signs: 16:20 BP 158 / 87; Pulse 77; Resp 22; Pulse Ox 91% on R/A; vg1 16:26 BP 158 / 87; Pulse 89; Resp 20; Temp 99.1; Pulse Ox 96% ; Pain 10/10; ll1 17:06 BP 143 / 57; Pulse 68; Resp 22; Pulse Ox 90% on R/A; vg1 17:45 Pain 10/10; vg1 17:53 BP 117 / 71; Pulse 72; Resp 16; Pulse Ox 97% on 2 lpm NC; sv 18:00 BP 128 / 63; Pulse 72; Resp 18; Pulse Ox 98% on 2 lpm NC; vg1 ED Course: 16:14 Patient arrived in ED. ds1 16:21 Nirav Potts PA is PHCP. jr8 16:21 Jarret Hernandez MD is Attending Physician. jr8 16:24 Rika Scanlon, STEFANIE is Primary Nurse. vg1 16:27 Triage completed. ll1 16:28 Arm band placed on Patient placed in an exam room, on a stretcher. ll1 16:40 Inserted saline lock: 20 gauge in right forearm, using aseptic technique. Flushed with vg1 5 ml normal saline. 16:45 Patient has correct armband on for positive identification. Bed in low position. Call vg1 light in reach. Side rails up X2. Adult w/ patient. Pulse ox on. NIBP on. Door closed. 17:00 X-ray(s) taken. sv 17:03 XRAY Shoulder LEFT 2 view In Process Unspecified. EDMS 17:30 Awaiting radiology results. sv 17:40 Assist provider with reduction of left shoulder using manipulation, Set up for sv procedure. Performed by Nirav BUSTAMANTE Immobilized with shoulder immobilizer Patient tolerated well. 18:05 Eric Liu MD is Referral Physician. jr8 18:08 XRAY Shoulder (1 View) In Process Unspecified. EDMS 18:15 IV discontinued, intact, bleeding controlled, No redness/swelling at site. Pressure vg1 dressing applied. Administered Medications: 16:45 Drug: fentaNYL (PF) 50 mcg {Note: rass 0.} Route: IVP; Site: right forearm; vg1 17:45 Follow up: Pain 10/10 Adult; Response: No adverse reaction; Other; RASS: Alert and Calm vg1 (0); Patient stated "pain is a little better" 16:45 Drug: Zofran (Ondansetron) 4 mg Route: IVP; Site: right forearm; vg1 17:44 Follow up: Response: No adverse reaction vg1 17:40 Drug: Demerol 25 mg {Note: rass1.} Route: IVP; Site: right forearm; sv 17:51 Follow up: Response: No adverse reaction; Marked relief of symptoms; Pain is decreased; sv RASS: Drowsy (-1) 17:45 Drug: Demerol - Meperidine 12.5 mg {Note: rass1.} Route: IVP; Site: right forearm; sv 17:52 Follow up: Response: No adverse reaction; Pain is decreased; RASS: Drowsy (-1) sv Intake: Outcome: 18:05 Discharge ordered by . eloisa 18:20 Discharged to home via wheelchair, with family. vg1 18:20 Condition: stable 18:20 Discharge instructions given to patient, Instructed on discharge instructions, follow up and referral plans. Demonstrated understanding of instructions, follow-up care. 18:21 Patient left the ED. vg1 Signatures: Dispatcher [employer] EDMS Romero Schultzie, STEFANIE RN sv Lu De Souza ds1 Nirav Potts PA PA jr8 Rika Scanlon RN RN vg1 Juanita Huang RN RN ll1 Corrections: (The following items were deleted from the chart) 17:51 17:45 Demerol - Meperidine 12.5 mg IVP in right forearm sv sv 17:57 17:53 Pulse 72bpm; Resp 16bpm; Pulse Ox 97% 2 lpm Nasal Cannula; sv sv
--- NOTE | 2020-06-15 18:12 | RAD REPORT ---
EXAM DESCRIPTION: RAD - Shoulder 1 View - 06/15/2020 6:06 pm CLINICAL HISTORY: Right shoulder dislocation FINDINGS: Previously described dislocation appears reduced
[2020-06-15 19:05] VITALS: TEMP 99.1
[2020-06-15 19:12] VITALS: BP 128/63; O2SAT 98
== END 2020-06-15 18:21 | disposition home or self-care (01) ==
LOC: ER 16:13
PROC: 0RSKXZZ Reposition Left Shoulder Joint, External Approach (ICD-10-PCS; principal; 2020-06-15)
DX: M24.412 Recurrent dislocation, left shoulder (principal); I10 Essential (primary) hypertension; J44.9 Chronic obstructive pulmonary disease, unspecified; F17.210 Nicotine dependence, cigarettes, uncomplicated; Z88.8 Allergy status to other drugs, medicaments and biological substances
CPT/HCPCS: 73020; 73030; 96375; 96374; 99284; 23650; J3010; J2175; J2405

== ENCOUNTER 2020-09-29 09:20 | Inpatient (IN) | payer OTHER ==
[2020-09-29] MEDS ORDERED: ALBUTEROL 2.5 MG/3 ML NEB SOL ONE (09:42)
[2020-09-29] MEDS ORDERED: IPRATROPIUM BROM 0.5MG/2.5ML ONE (09:42)
[2020-09-29 10:02] LABS: Absolute Lymphocytes (CBC) 2.7 K/uL (0.7-4.9); Basophils % 0.8 % (0-1.3); Hematocrit 34.9 % (39.6-49.0); Lymphocytes % 29.6 % (15.3-44.8); MPV 8.9 fL (7.6-11.3); RBC Red Blood Cell Count 3.51 M/uL (4.33-5.43)
[2020-09-29 10:08] LABS: Protime INR 1.65
--- NOTE | 2020-09-29 10:22 | RAD REPORT ---
EXAM DESCRIPTION: RAD - Chest Single View - 09/29/2020 10:14 am CLINICAL HISTORY: COPD Chest pain. COMPARISON: Chest Pa And Lat (2 Views) dated 06/27/2020; Chest Single View dated 10/16/2019; Chest Sin gle View dated 07/08/2019; Chest Single View dated 07/06/2019 FINDINGS: Portable technique limits examination quality. Large area of airspace consolidation has developed in the right upper lobe with a right pleural effus ion, likely related to infection/pneumonia. Large bulla are present in the left upper lobe. Heart siz e is mildly enlarged with changes of a prior CABG. IMPRESSION: Moderate right-sided pneumonia is seen.
[2020-09-29 10:24] LABS: ALT/SGPT 19 U/L (12-78); AST/SGOT 24 U/L (15-37); Albumin 3.1 g/dL (3.4-5.0); Alkaline Phosphatase 146 U/L (45-117); BUN Blood Urea Nitrogen 15 mg/dL (7-18); Bicarbonate 36 mmol/L (21-32); Bilirubin Direct 0.3 mg/dL (0-0.2); Bilirubin Total 0.6 mg/dL (0.2-1.0); Glucose Level 167 mg/dL (74-106); Magnesium 2.1 mg/dL (1.8-2.4); NT PRO-BNP 14613 pg/mL (<125); Protein, Total 6.8 g/dL (6.4-8.2); Sodium Level 144 mmol/L (136-145); Troponin (Emerg Dept Use Only) < 0.02 ng/mL (0.0-0.045)
--- NOTE | 2020-09-29 10:49 | ER ---
Nurse's Notes [facility] Name: Javed Sams Age: 70 yrs Sex: Male : 1950 Arrival Date: 09/29/2020 Time: 09:22 Bed 2 Private MD: Diagnosis: Pneumonia, unspecified organism;Shortness of breath;COPD Presentation: 09/29 09:25 Chief complaint: EMS states: SOB ON HOME O2. Coronavirus screen: cough unrelated to bp allergies, shortness of breath, Client presents with at least one sign or symptom that may indicate coronavirus-19. Standard/surgical mask placed on the client. Provider contacted for isolation considerations. Ebola Screen: No symptoms or risks identified at this time. Initial Sepsis Screen: Does the patient meet any 2 criteria? RR > 20 per min. HR > 90 bpm. Yes Does the patient have a suspected source of infection? Yes: Productive cough/pneumonia. Risk Assessment: Do you want to hurt yourself or someone else? Patient reports no desire to harm self or others. Onset of symptoms is unknown. Care prior to arrival: IV initiated. 20 GA, in the right forearm. 09:25 Method Of Arrival: EMS: [facility] bp 09:25 Acuity: LÓPEZ 2 bp Triage Assessment: 09:25 General: Appears distressed, uncomfortable, slender, Behavior is cooperative, bp appropriate for age, agitated, anxious. Pain: Denies pain. EENT: No deficits noted. Neuro: Level of Consciousness is awake, alert, obeys commands, Oriented to Appropriate for age. Cardiovascular: Rhythm is sinus tachycardia. Respiratory: Reports shortness of breath cough that is Breath sounds with rhonchi bilaterally. GI: No signs and/or symptoms were reported involving the gastrointestinal system. GI: Reports nausea. : No deficits noted. Derm: No deficits noted. Musculoskeletal: Historical: - Allergies: 09:54 "cold medicine"; jl7 10:02 NKA; bp - Home Meds: 10:02 albuterol sulfate 2.5 mg /3 mL (0.083 %) Inhl nebu every 6 hours [Active]; Allopurinol bp 600 mg Oral once daily [Active]; aspirin 81 mg Oral TbEC 1 tab once daily [Active]; cinacalcet oral oral 1 tab once daily [Active]; Eliquis 5 mg oral tab 1 tab 2 times per day [Active]; Entresto 24-26 mg oral tab twice a day [Active]; furosemide 20 mg Oral tab 1 tab once daily [Active]; levothyroxine 75 mcg oral tab 1 tab once daily [Active]; Lipitor 40 mg Oral tab 1 tab once daily [Active]; metoprolol tartrate 25 mg Oral tab 1 tab once daily [Active]; ProAir HFA 90 mcg/actuation inhalation HFAA 2 puffs every 4-6 hours [Active]; - PMHx: 09:54 COPD; GI Bleed; Hypertension; Hypothyroidism; High Cholesterol; jl7 10:02 COPD; GI Bleed; Hypertension; Hypothyroidism; bp - Immunization history:: Adult Immunizations. - Social history:: Smoking status: Patient/guardian denies using tobacco, Stopped _ months ago 2. - Family history:: not pertinent. Screenin:54 Abuse screen: Denies threats or abuse. Denies injuries from another. Nutritional jl7 screening: No deficits noted. Tuberculosis screening: No symptoms or risk factors identified. Fall Risk IV access (20 points). Assessment: 09:30 General: SEE TRIAGE NOTE. bp 10:30 Reassessment: Patient appears in no apparent distress at this time. Patient and/or jl7 family updated on plan of care and expected duration. Pain level reassessed. Patient is alert, oriented x 3, equal unlabored respirations, skin warm/dry/pink. Patient states feeling better. Patient states symptoms have improved. 11:26 Reassessment: Patient and/or family updated on plan of care and expected duration. Pain bp level reassessed. Patient is alert, oriented x 3, equal unlabored respirations, skin warm/dry/pink. DR KASPER AT B/S. ADMIT INITIATED. 12:30 Reassessment: No changes from previously documented assessment. Patient and/or family bp updated on plan of care and expected duration. Pain level reassessed. Patient is alert, oriented x 3, equal unlabored respirations, skin warm/dry/pink. 13:51 Reassessment: ADMIT COMPLETE, PT UNIQUE. bp Vital Signs: 09:25 BP 170 / 106; Pulse 100; Resp 28; Temp 98.3; Pulse Ox 93% on 15% Non-rebreather mask; bp Weight 49.9 kg; 10:00 BP 141 / 88; Pulse 70; Resp 27; Pulse Ox 100% ; bp 10:49 BP 135 / 65; Pulse 66; Resp 21 S; Pulse Ox 100% on BiPAP; jl7 11:25 BP 132 / 91; Pulse 64; Resp 23; Pulse Ox 96% ; bp 12:49 BP 127 / 79; Pulse 76; Resp 22; Pulse Ox 96% on BiPAP; mh5 13:51 BP 116 / 78; Pulse 55; Resp 20; Pulse Ox 92% on 15% Non-rebreather mask; bp ED Course: 09:22 Patient arrived in ED. em1 09:25 Jason Thrasher, RN is Primary Nurse. bp 09:29 Triage completed. bp 09:30 EKG done, by ED staff, reviewed by Edwar Yuan MD. Maintain EMS IV. Dressing intact. jl7 Good blood return noted. Site clean \\T\\ dry. Gauge \\T\\ site: 20 Right wrist. 09:31 Edwar Yuan MD is Attending Physician. kdr 09:36 Patient has correct armband on for positive identification. Placed in gown. Bed in low mh5 position. Side rails up X2. Warm blanket given. school bus monitor on. Pulse ox on. NIBP on. 09:54 CBC with Automated Diff Sent. mh5 09:54 Basic Metabolic Panel Sent. mh5 09:55 CBC with Diff Sent. mh5 09:55 Basic Metabolic Panel Sent. mh5 09:55 LFT's Sent. mh5 09:55 Magnesium Sent. mh5 09:56 NT PRO-BNP Sent. mh5 09:56 PT-INR Sent. mh5 09:56 Troponin (emerg Dept Use Only) Sent. mh5 09:56 Initial lab(s) drawn, by wa, sent to lab. mh5 10:13 XRAY Chest (1 view) In Process Unspecified. EDMS 10:48 Jarret Kasper MD is Hospitalizing Provider. kdr 11:08 COVID swab sent to lab. mh5 13:46 Repeat lab(s) drawn. by ED staff, sent to lab. mh5 13:50 No provider procedures requiring assistance completed. Patient admitted, IV remains in bp place. 13:51 Arm band placed on. bp Administered Medications: 09:37 Drug: Albuterol - atroVENT (3:1) (2.5 mg - 0.5 mg) 3 ml Route: Nebulizer; 7 11:06 Follow up: Response: Marked relief of symptoms bp 10:45 Drug: Rocephin 1 grams Route: IV; Rate: calculated rate; Site: right forearm; bp 11:24 Follow up: IV Status: Completed infusion; IV Intake: 100ml bp 11:15 Drug: Zithromax 500 mg Route: IVPB; Infused Over: 1 hrs; Site: right forearm; bp 13:26 Follow up: IV Status: Completed infusion; IV Intake: 250ml bp Intake: 11:24 IV: 100ml; Total: 100ml. bp 13:26 IV: 250ml; Total: 350ml. bp Outcome: 10:48 Decision to Hospitalize by Provider. kdr 13:50 Admitted to Med/surg accompanied by tech, via wheelchair, room 229, with oxygen, with bp chart, Report called to MATTHIAS WATTS 13:50 Condition: stable 13:50 Instructed on the need for admit. 14:07 Patient left the ED. 7 Signatures: Dispatcher [employer] EDMS Edwar Yuan MD MD kdr Martinez, Eric Maryam Millan [facility] Sulema Cain, RN RN 7 Jason Thrasher, RN RN bp Corrections: (The following items were deleted from the chart) 11:29 11:09 Influenza Screen (A \\T\\ B)+[id number].[email or web address].[email or web address] drawn and sent. [facility] EDVT 11:29 11:09 Influenza Screen (A drawn and sent. [facility] EDVT
--- NOTE | 2020-09-29 10:49 | EDPHYS ---
Physician Documentation [facility] Name: Javed Sams Age: 70 yrs Sex: Male : 1950 Arrival Date: 09/29/2020 Time: 09:22 Bed 2 Private MD: ED Physician Edwar Yuan HPI: 09/29 10:37 This 70 yrs old Male presents to ER via EMS with complaints of SOB. kdr 10:37 The patient has shortness of breath at rest. Onset: The symptoms/episode began/occurred kdr gradually, 1 week(s) ago. Duration: The symptoms are continuous, and are steadily getting worse. The patient's shortness of breath is aggravated by coughing, exertion, light activity, talking. Associated signs and symptoms: Pertinent positives: nausea. Severity of symptoms: At their worst the symptoms were moderate severe incapacitating just prior to arrival, in the emergency department the symptoms are unchanged. It is unknown whether or not the patient has had similar symptoms in the past. It is unknown whether or not the patient has recently seen a physician. EMS was called for SOB, initial sats on RA in ED at 72% and very dyspneic. Historical: - Allergies: 09:54 "cold medicine"; 10:02 NKA; bp - Home Meds: 10:02 albuterol sulfate 2.5 mg /3 mL (0.083 %) Inhl nebu every 6 hours [Active]; Allopurinol bp 600 mg Oral once daily [Active]; aspirin 81 mg Oral TbEC 1 tab once daily [Active]; cinacalcet oral oral 1 tab once daily [Active]; Eliquis 5 mg oral tab 1 tab 2 times per day [Active]; Entresto 24-26 mg oral tab twice a day [Active]; furosemide 20 mg Oral tab 1 tab once daily [Active]; levothyroxine 75 mcg oral tab 1 tab once daily [Active]; Lipitor 40 mg Oral tab 1 tab once daily [Active]; metoprolol tartrate 25 mg Oral tab 1 tab once daily [Active]; ProAir HFA 90 mcg/actuation inhalation HFAA 2 puffs every 4-6 hours [Active]; - PMHx: 09:54 COPD; GI Bleed; Hypertension; Hypothyroidism; High Cholesterol; jl7 10:02 COPD; GI Bleed; Hypertension; Hypothyroidism; bp - Immunization history:: Adult Immunizations. - Social history:: Smoking status: Patient/guardian denies using tobacco, Stopped _ months ago 2. - Family history:: not pertinent. ROS: 10:37 Constitutional: Negative for fever, chills, and weight loss, Eyes: Negative for injury, kdr pain, redness, and discharge, ENT: Negative for injury, pain, and discharge, Neck: Negative for injury, pain, and swelling, Cardiovascular: Negative for chest pain, palpitations, and edema, Abdomen/GI: Negative for abdominal pain, nausea, vomiting, diarrhea, and constipation, Back: Negative for injury and pain, : Negative for injury, bleeding, discharge, and swelling, MS/Extremity: Negative for injury and deformity, Skin: Negative for injury, rash, and discoloration, Neuro: Negative for headache, weakness, numbness, tingling, and seizure activity. Psych: Negative for depression, anxiety, suicide ideation, homicidal ideation, and hallucinations, Allergy/Immunology: Negative for hives, rash, and allergies, Endocrine: Negative for neck swelling, polydipsia, polyuria, polyphagia, and marked weight changes, Hematologic/Lymphatic: Negative for swollen nodes, abnormal bleeding, and unusual bruising. 10:37 Respiratory: Positive for cough, with no reported sputum, shortness of breath, at rest. Exam: 10:37 Constitutional: This is a well developed, well nourished patient who is awake, alert, kdr and in moderate distress. Head/Face: Normocephalic, atraumatic. Eyes: Pupils equal round and reactive to light, extra-ocular motions intact. Lids and lashes normal. Conjunctiva and sclera are non-icteric and not injected. Cornea within normal limits. Periorbital areas with no swelling, redness, or edema. Neck: Trachea midline, no thyromegaly or masses palpated, and no cervical lymphadenopathy. Supple, full range of motion without nuchal rigidity, or vertebral point tenderness. No Meningismus. Chest/axilla: Normal chest wall appearance and motion. Nontender with no deformity. No lesions are appreciated. Cardiovascular: Regular rate and rhythm with a normal S1 and S2. No gallops, murmurs, or rubs. Normal PMI, no JVD. No pulse deficits. Abdomen/GI: Soft, non-tender, with normal bowel sounds. No distension or tympany. No guarding or rebound. No evidence of tenderness throughout. Back: No spinal tenderness. No costovertebral tenderness. Full range of motion. Skin: Warm, dry with normal turgor. Normal color with no rashes, no lesions, and no evidence of cellulitis. MS/ Extremity: Pulses equal, no cyanosis. Neurovascular intact. 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 10:37 Respiratory: mild respiratory distress is noted, moderate respiratory distress is noted, Respirations: labored breathing, that is mild, Breath sounds: decreased breath sounds, that are moderate, are scattered, Respiratory rate: 27 Vital Signs: 09:25 BP 170 / 106; Pulse 100; Resp 28; Temp 98.3; Pulse Ox 93% on 15% Non-rebreather mask; bp Weight 49.9 kg; 10:00 BP 141 / 88; Pulse 70; Resp 27; Pulse Ox 100% ; bp 10:49 BP 135 / 65; Pulse 66; Resp 21 S; Pulse Ox 100% on BiPAP; jl7 11:25 BP 132 / 91; Pulse 64; Resp 23; Pulse Ox 96% ; bp 12:49 BP 127 / 79; Pulse 76; Resp 22; Pulse Ox 96% on BiPAP; mh5 13:51 BP 116 / 78; Pulse 55; Resp 20; Pulse Ox 92% on 15% Non-rebreather mask; bp MDM: 10:37 Data reviewed: vital signs, nurses notes, lab test result(s), radiologic studies. kdr Counseling: I had a detailed discussion with the patient and/or guardian regarding: the historical points, exam findings, and any diagnostic results supporting the discharge/admit diagnosis, lab results, radiology results, the need for further work-up and treatment in the hospital. 10:48 Patient medically screened. [facility] 09/29 09:32 Order name: Basic Metabolic Panel kdr 09/29 09:32 Order name: CBC with Diff [facility] 09/29 09:32 Order name: LFT's; Complete Time: 10:31 kdr 09/29 09:32 Order name: Magnesium; Complete Time: 10:31 kdr 09/29 09:32 Order name: NT PRO-BNP; Complete Time: 10: kdr 09/29 09:32 Order name: PT-INR; Complete Time: 10:17 kdr 09/29 09:32 Order name: Troponin (emerg Dept Use Only); Complete Time: 10:31 [facility] 09/29 09:32 Order name: Basic Metabolic Panel; Complete Time: 10:31 [facility] 09/29 09:32 Order name: CBC with Automated Diff; Complete Time: 10:17 [facility] 09/29 09:47 Order name: ABG [facility] 09/29 09:48 Order name: ABG Arterial Blood Gas [facility] 09/29 10:32 Order name: Procalcitonin [facility] 09/29 10:32 Order name: Lactate [facility] 09/29 09:32 Order name: XRAY Chest (1 view); Complete Time: 10:31 [facility] 09/29 09:32 Order name: EKG; Complete Time: 09:33 [facility] 09/29 09:32 Order name: Cardiac monitoring; Complete Time: 09:36 [facility] 09/29 09:32 Order name: EKG - Nurse/Tech; Complete Time: 09:37 [facility] 09/29 09:32 Order name: IV Saline Lock; Complete Time: 09:37 [facility] 09/29 09:32 Order name: Labs collected and sent; Complete Time: 09:37 [facility] 09/29 09:32 Order name: BIPAP [facility] 09/29 12:09 Order name: COVID-19/FLU A+B [facility] 09/29 12:37 Order name: CONS Physician Consult [facility] 09/29 12:37 Order name: Heart Healthy [facility] 09/29 09:32 Order name: O2 Per Protocol; Complete Time: 09:37 [facility] 09/29 09:32 Order name: O2 Sat Monitoring; Complete Time: 09:37 kdr Administered Medications: 09:37 Drug: Albuterol - atroVENT (3:1) (2.5 mg - 0.5 mg) 3 ml Route: Nebulizer; jl7 11:06 Follow up: Response: Marked relief of symptoms bp 10:45 Drug: Rocephin 1 grams Route: IV; Rate: calculated rate; Site: right forearm; bp 11:24 Follow up: IV Status: Completed infusion; IV Intake: 100ml bp 11:15 Drug: Zithromax 500 mg Route: IVPB; Infused Over: 1 hrs; Site: right forearm; bp 13:26 Follow up: IV Status: Completed infusion; IV Intake: 250ml bp Disposition: 09/29/20 10:48 Hospitalization ordered by Jarret Kasper for Inpatient Admission. Preliminary diagnosis are Pneumonia, unspecified organism, Shortness of breath, COPD. - Bed requested for Telemetry/MedSurg (Inpatient). - Status is Inpatient Admission. jl7 - Condition is Fair. - Problem is new. - Symptoms have improved. Signatures: Dispatcher [employer] EDMS Traci Manning RN RN Edwar Yuan MD MD [facility] Sulema Cain RN RN jl7 Jason Thrasher RN RN bp Corrections: (The following items were deleted from the chart) 11: 11:07 Influenza Screen (A \\T\\ B)+BA.LAB.BRZ ordered. EDKY EDMS 11:29 11:07 Influenza Screen (A ordered. EDKY EDMS 13:16 10:48 Hospitalization Ordered by Jarret Kasper MD for Inpatient Admission. Preliminary dw diagnosis is Pneumonia, unspecified organism; Shortness of breath; COPD. Bed requested for Telemetry/MedSurg (Inpatient). Status is Inpatient Admission. Condition is Fair. Problem is new. Symptoms have improved. kdr 14:07 13:16 09/29/2020 10:48 Hospitalization Ordered by Jarret Kasper MD for Inpatient jl7 Admission. Preliminary diagnosis is Pneumonia, unspecified organism; Shortness of breath; COPD. Bed requested for Telemetry/MedSurg (Inpatient). Status is Inpatient Admission. Condition is Fair. Problem is new. Symptoms have improved. dw
[2020-09-29] MEDS ORDERED: AZITHROMYCIN IV 500 MG in NA CHLORIDE 0.9% 250 ML IVPB ONE (11:00)
[2020-09-29 11:12] LABS: Arterial Blood Carboxyhemoglob 1.6 % (0-1.5); Blood Gas Oxyhemoglobin 93.8 % (94-97)
[2020-09-29] MEDS ORDERED: NA CHLORIDE 0.9% 100 ML ONE (11:18)
[2020-09-29] MEDS ORDERED: CEFTRIAXONE/SWI 1gm 1 GM/10 ML SYR ONE (11:18)
[2020-09-29 12:09] LABS: SARS-COV-2 RT PCR NEGATIVE (NEGATIVE)
[2020-09-29] MEDS ORDERED: IPRATROPIUM BROM 0.5MG/2.5ML NEB PRN ×2 (12:33→17:00)
[2020-09-29] MEDS ORDERED: ALBUTEROL 2.5 MG/3 ML NEB SOL NEB PRN (12:33)
[2020-09-29] MEDS: NA CHLORIDE 0.9% 1,000 ML IV SCH (13:00)
[2020-09-29 15:00] VITALS: BMI 17.0
[2020-09-29] MEDS ORDERED: POTASSIUM 25 MEQ EFFERV TAB PO ONE (21:00)
[2020-09-30] MEDS: NA CHLORIDE 0.9% 1,000 ML IV SCH (02:20)
[2020-09-30 06:07] LABS: Absolute Lymphocytes (CBC) 0.5 K/uL (0.7-4.9); Basophils % 0.2 % (0-1.3); Hematocrit 32.2 % (39.6-49.0); Lymphocytes % 10.9 % (15.3-44.8); RBC Red Blood Cell Count 3.22 M/uL (4.33-5.43)
[2020-09-30 06:23] LABS: ALT/SGPT 18 U/L (12-78); AST/SGOT 19 U/L (15-37); Albumin 2.8 g/dL (3.4-5.0); Alkaline Phosphatase 111 U/L (45-117); BUN Blood Urea Nitrogen 21 mg/dL (7-18); Bicarbonate 35 mmol/L (21-32); Bilirubin Total 0.6 mg/dL (0.2-1.0); Glucose Level 126 mg/dL (74-106); HDL Cholesterol 56 mg/dL (40-60); LDL Cholesterol, Calculated 42 (<130); NT PRO-BNP 25525 pg/mL (<125); Phosphorus 3.2 mg/dL (2.5-4.9); Potassium 4.3 mmol/L (3.5-5.1); Protein, Total 6.2 g/dL (6.4-8.2); Sodium Level 146 mmol/L (136-145); Thyroid Stimulating Hormone 0.454 uIU/mL (0.360-3.740)
[2020-09-30] MEDS: ENOXAPARIN 40 MG/0.4 ML SQ SCH (07:59)
[2020-09-30] MEDS ORDERED: FUROSEMIDE 20 MG/ 2ML VIAL IV ONE (09:36)
[2020-09-30] MEDS: ALBUTEROL 2.5 MG/3 ML NEB SOL NEB PRN (15:30)
--- NOTE | 2020-09-30 15:47 | P.CNS ---
Date of Consult: 09/30/20 Reason for Consult: COPD exacerbation Chief Complaint: Shortness of breath History of Present Illness: Patient is 70 years of age well known to me the triple medical problems presented to the emergency department the left lower extremity swelling slurred speech as compliant with his medication addition he also takes pain medication and anxiolytics as been complaining of some worsening dyspnea Patient is currently on BiPAP Allergies cold medicine Allergy (Uncoded 07/06/19 18:10) Nervouseness Home Medications: allopurinoL [Zyloprim*] 300 mg PO DAILY 08/13/18 Atorvastatin Calcium [Lipitor] 80 mg PO BEDTIME #30 tab 08/15/18 Albuterol Sulfate [Albuterol Sulfate 0.083% Neb Soln] 2.5 mg IH TID 07/06/19 Albuterol Sulfate [Proair Hfa] 8.5 gm IH Q6HP PRN 07/06/19 Apixaban [Eliquis] 5 mg PO BID 09/29/20 Aspirin 81 mg PO DAILY 09/29/20 Furosemide [Lasix] 20 mg PO Q8HP 09/29/20 Levothyroxine [Synthroid] 75 mcg PO [id number] 09/29/20 Metoprolol Tartrate [Lopressor] 25 mg PO DAILY 09/29/20 Pantoprazole Sodium [Protonix] 40 mg PO Q12HR 09/29/20 Ranitidine [Zantac] 150 mg PO DAILY 09/29/20 Sacubitril/Valsartan [Entresto 24 mg-26 mg Tablet] 0.5 each PO BID 09/29/20 - Past Medical/Surgical History Diabetic: No -: HTN -: COPD -: CAD with CABG and stent -: CABG -: Stents - Family History Mother Medical History: Liver disease - Social History Smoking Status: Current every day smoker Alcohol use: No CD- Drugs: No Caffeine use: No Place of Residence: Home Review of Systems 10-point ROS is otherwise unremarkable General: Weakness Respiratory: Shortness of Breath Physical Examination Temp Pulse Resp BP Pulse Ox 97.0 F 77 18 162/71 H 95 09/30/20 12:00 09/30/20 12:00 09/30/20 12:00 09/30/20 12:00 09/30/20 12:00 General: Alert, In no apparent distress, Oriented x3 Respiratory: Clear to auscultation bilaterally, Diminished, Crackles/rales (Crackles on the right side), Other Cardiovascular: No edema, Normal S1 S2 - Problems (1) COPD exacerbation Onset Date: 08/13/18 Current Visit: No Status: Acute Plan: Patient is 70 years of age well known to me with a history of terminal COPD labs reviewed patient is hypokalemic mildly anemic mildly hypercarbic patient x-ray looks worse he has a pneumonia with a pleural effusion on the right side patient is hypernatremic BNP is elevated niece to be started on antibiotics he only received 1 dose of Zithromax in the emergency room and Rocephin I have started him on Zosyn will also need a CT scan of the chest bilateral decubitus films in addition to doxycycline he is high risk for bankruptcy assistant infection medications need to be reconciled he has congestive heart failure patient does not need a BiPAP I have added long-acting bronchodilator patient has bullous changes on the left upper lobe which is chronic
[2020-09-30] MEDS: ARFORMOTEROL TARTRATE 15 MCG/2 ML VIAL.NEB NEB SCH ×2 (15:51→19:52)
--- NOTE | 2020-09-30 17:07 | RAD REPORT ---
EXAM DESCRIPTION: CT - Thorax W/ Con CLINICAL HISTORY: Chest pain Severe pneumonia pleural effusion COMPARISON: Thorax W/ Con dated 07/10/2019; Thorax W/ Con dated 03/26/2019 FINDINGS: Airspace consolidation is noted in the right upper lobe. Large emphysematous bulla noted i n both lung apices, larger on the left. Ill-defined opacities are present in the left lung base. Smal l to moderate size loculated right pleural effusion is noted. No pneumothorax. No axillary, mediastinal or hilar adenopathy. Heavy atherosclerosis of the abdominal aorta noted. Gallstones are present. No lytic or blastic bone lesion. All CT scans are performed using dose optimization technique as appropriate and may include automated exposure control or mA/KV adjustment according to patient size. IMPRESSION: Small to moderate loculated right pleural effusion is noted. Moderate consolidation is seen in the right upper lobe likely representing pneumonia. Mild nodular opacities in the left base laterally likely also infection etiology.
--- NOTE | 2020-09-30 17:08 | RAD REPORT ---
EXAM DESCRIPTION: RAD - Chest Lateral Decubitus - 09/30/2020 5:01 pm CLINICAL HISTORY: Bilateral decubitus Pleural effusion, pneumonia COMPARISON: Chest Single View dated 09/29/2020 FINDINGS: Right pleural effusion is largely loculated with a small amount free-flowing fluid noted m easuring 3 cm in maximum thickness. No significant left-sided effusion seen.
[2020-09-30] MEDS: PIPER/TAZO/NS 4.5gm 4.5 GM/100 ML BAG IVPB SCH (17:50)
[2020-09-30] MEDS ORDERED: PIPER/TAZO/NS 4.5gm 4.5 GM/100 ML BAG IVPB SCH (18:00)
[2020-09-30] MEDS: IPRATROPIUM BROM 0.5MG/2.5ML NEB SCH (19:52)
[2020-09-30] MEDS: DOXYCYCLINE 100 MG CAP PO SCH (20:37)
--- NOTE | 2020-09-30 22:44 | P.HP ---
Certification for Inpatient Patient admitted to: Inpatient With expected LOS: >2 Midnights Patient will require the following post-hospital care: None Practitioner: I am a practitioner with admitting privileges, knowledge of patient current condition, hospital course, and medical plan of care. Services: Services provided to patient in accordance with Admission requirements found in Title 42 Section 412.3 of the Code of Federal Regulations Patient History Date of Service: 09/29/20 Reason for admission: Shortness of breath History of Present Illness: Patient is a 70-year-old gentleman who came to the hospital with shortness of breath. Patient has history of severe COPD. He was very dyspneic and he was satting 60%. He was placed on non-rebreather but his saturations were not improving significantly. Patient was placed on a BiPAP. He clinically is doing better. His chest x-ray reveals lay significant right upper lobe pneumonia. He has haziness throughout the right lung feels. He will be admitted to the hospital for further evaluation. He also has Colace and dull left lung which is indicative of his severe COPD. Probably need to get him weaned off the BiPAP as soon as possible. Allergies cold medicine Allergy (Uncoded 07/06/19 18:10) Nervouseness Home Medications: allopurinoL [Zyloprim*] 300 mg PO DAILY 08/13/18 Atorvastatin Calcium [Lipitor] 80 mg PO BEDTIME #30 tab 08/15/18 Albuterol Sulfate [Albuterol Sulfate 0.083% Neb Soln] 2.5 mg IH TID 07/06/19 Albuterol Sulfate [Proair Hfa] 8.5 gm IH Q6HP PRN 07/06/19 Apixaban [Eliquis] 5 mg PO BID 09/29/20 Aspirin 81 mg PO DAILY 09/29/20 Furosemide [Lasix] 20 mg PO Q8HP 09/29/20 Levothyroxine [Synthroid] 75 mcg PO [id number] 09/29/20 Metoprolol Tartrate [Lopressor] 25 mg PO DAILY 09/29/20 Pantoprazole Sodium [Protonix] 40 mg PO Q12HR 09/29/20 Ranitidine [Zantac] 150 mg PO DAILY 09/29/20 Sacubitril/Valsartan [Entresto 24 mg-26 mg Tablet] 0.5 each PO BID 09/29/20 - Past Medical/Surgical History Has patient received pneumonia vaccine in the past: Yes Diabetic: No -: HTN -: COPD -: CAD with CABG and stent -: CABG -: Stents - Family History Mother Medical History: Liver disease - Social History Alcohol use: No CD- Drugs: No Caffeine use: No Place of Residence: Home Review of Systems 10-point ROS is otherwise unremarkable Physical Examination - Vital Signs Temperature: 97.6 F Blood Pressure: 139/85 Pulse: 63 Respirations: 18 Pulse Ox (%): 97 - Physical Exam General: Alert, In no apparent distress, Oriented x3 HEENT: Atraumatic, PERRLA, Mucous membr. moist/pink, EOMI, Sclerae nonicteric Neck: Supple, 2+ carotid pulse no bruit, No LAD, Without JVD or thyroid abnormality Respiratory: Diminished, Crackles/rales Cardiovascular: Regular rate/rhythm, Normal S1 S2, Systolic murmur Gastrointestinal: Normal bowel sounds, Soft and benign, Non-distended, No tenderness Musculoskeletal: No clubbing, No tenderness, Swelling Integumentary: No rashes Neurological: Normal strength at 5/5 x4 extr, Sensation intact, Cranial nerves 3-12 intact Lymphatics: No axilla or inguinal lymphadenopathy Assessment & Plan - Problems (Diagnosis) (1) COPD exacerbation Onset Date: 08/13/18 Current Visit: No Status: Acute (2) Right upper lobe pneumonia Current Visit: Yes Status: Acute (3) Acute respiratory failure with hypoxia Current Visit: No Status: Acute (4) COPD (chronic obstructive pulmonary disease) Current Visit: No Status: Acute Qualifiers: COPD type: unspecified COPD Qualified Code(s): J44.9 - Chronic obstructive pulmonary disease, unspecified (5) NSTEMI (non-ST elevated myocardial infarction) Onset Date: 08/13/18 Current Visit: No Status: Acute (6) CAD (coronary artery disease) Onset Date: 08/13/18 Current Visit: No Status: Chronic Qualifiers: Coronary Disease-Associated Artery/Lesion type: cheesh[place] artery [place] vs. transplanted heart: cheesh-na heart Associated angina: without angina Qualified Code(s): I25.10 - Atherosclerotic heart disease of cheesh-na coronary artery without angina pectoris (7) CHF (congestive heart failure) Onset Date: 08/13/18 Current Visit: No Status: Chronic Qualifiers: Heart failure type: combined systolic and diastolic Heart failure chronicity: acute Qualified Code(s): I50.41 - Acute combined systolic (congestive) and diastolic (congestive) heart failure (8) HTN (hypertension) Onset Date: 08/13/18 Current Visit: No Status: Chronic Qualifiers: Hypertension type: essential hypertension Qualified Code(s): I10 - Esse ntial (primary) hypertension - Plan 1. Continue with IV antibiotics 2. Awaiting sputum and blood culture 3. Repeat chest x-ray 4. Will proceed with CT scan of the chest if pneumonia is not improved 5. Pulmonary consultation 6. Continue with nebs as needed 7. O2 per protocol 8. Hep-Lock IV 9. Repeat labs including CBC and renal function in a.m. 10. GI and DVT prophylaxis Discharge Plan: Home Plan to discharge in: Greater than 2 days - Advance Directives Does patient have a Living Will: No Does patient have a Durable POA for Healthcare: No - Code Status/Comfort Care Code Status Assessed: Yes Code Status: Full Code Critical Care: No Time Spent Managing PTS Care (In Minutes): 45
[2020-10-01] MEDS: PIPER/TAZO/NS 4.5gm 4.5 GM/100 ML BAG IVPB SCH ×3 (00:34→17:00)
[2020-10-01] MEDS: METHYLPREDNISOLONE 125 MG INJ IV SCH ×5 (00:35→23:03)
[2020-10-01] MEDS: IPRATROPIUM BROM 0.5MG/2.5ML NEB SCH ×4 (02:10→19:35)
[2020-10-01] MEDS: ARFORMOTEROL TARTRATE 15 MCG/2 ML VIAL.NEB NEB SCH ×2 (07:40→19:35)
[2020-10-01] MEDS: ENOXAPARIN 40 MG/0.4 ML SQ SCH (09:00)
[2020-10-01] MEDS: DOXYCYCLINE 100 MG CAP PO SCH ×2 (09:00→20:16)
[2020-10-01] MEDS ORDERED: FUROSEMIDE 20 MG/ 2ML VIAL IV ONE (12:29)
--- NOTE | 2020-10-01 12:53 | P.PN ---
Subjective Date of Service: 09/30/20 Patient continues with nebs, steroids, antibiotics. Seen by Pulmonary and CT and chest x-ray reordered. Awaiting results at this time Review of Systems 10-point ROS is otherwise unremarkable Physical Examination - Vital Signs Temperature: 97.6 F Blood Pressure: 139/85 Pulse: 63 Respirations: 18 Pulse Ox (%): 97 - Physical Exam General: Alert, In no apparent distress, Oriented x3 Respiratory: Diminished, Expiratory wheezes Cardiovascular: Regular rate/rhythm, Normal S1 S2, Systolic murmur Gastrointestinal: Normal bowel sounds, Soft and benign, Non-distended, No tenderness Musculoskeletal: No tenderness Neurological: Sensation intact, Cranial nerves 3-12 intact - Studies Medications List Reviewed: Yes Assessment & Plan - Problems (Diagnosis) (1) COPD exacerbation Onset Date: 08/13/18 Current Visit: No Status: Acute (2) Right upper lobe pneumonia Current Visit: Yes Status: Acute (3) Acute respiratory failure with hypoxia Current Visit: No Status: Acute (4) COPD (chronic obstructive pulmonary disease) Current Visit: No Status: Acute Qualifiers: COPD type: unspecified COPD Qualified Code(s): J44.9 - Chronic obstructive pulmonary disease, unspecified (5) NSTEMI (non-ST elevated myocardial infarction) Onset Date: 08/13/18 Current Visit: No Status: Acute (6) CAD (coronary artery disease) Onset Date: 08/13/18 Current Visit: No Status: Chronic Qualifiers: Coronary Disease-Associated Artery/Lesion type: [place] artery [place] vs. transplanted heart: [place] heart Associated angina: without angina Qualified Code(s): I25.10 - Atherosclerotic heart disease of [place] coronary artery without angina pectoris (7) CHF (congestive heart failure) Onset Date: 08/13/18 Current Visit: No Status: Chronic Qualifiers: Heart failure type: combined systolic and diastolic Heart failure chronicity: acute Qualified Code(s): I50.41 - Acute combined systolic (congestive) and diastolic (congestive) heart failure (8) HTN (hypertension) Onset Date: 08/13/18 Current Visit: No Status: Chronic Qualifiers: Hypertension type: essential hypertension Qualified Code(s): I10 - Essen tial (primary) hypertension - Plan Continue with plan of care as mentioned below 1. Continue with IV antibiotics 2. Awaiting sputum and blood culture 3. Repeat chest x-ray pending 4. CT scan of the chest pending 5. Pulmonary consultation 6. Continue with nebs as needed 7. O2 per protocol 8. Hep-Lock IV 9. Repeat labs including CBC and renal function in a.m. 10. GI and DVT prophylaxis Discharge Plan: Home Plan to discharge in: Greater than 2 days - Advance Directives Does patient have a Living Will: No Does patient have a Durable POA for Healthcare: No - Code Status/Comfort Care Code Status: Full Code Critical Care: No Time Spent Managing PTS Care (In Minutes): 35
[2020-10-01] MEDS: ALBUTEROL 2.5 MG/3 ML NEB SOL NEB PRN (14:30)
[2020-10-01] MEDS: FUROSEMIDE 40 MG/4 ML VIAL IV SCH (17:50)
[2020-10-01] MEDS ORDERED: LIDOCAINE VISCOUS 2% SOLN 15 ML UDC PO PRN (21:55)
[2020-10-02] MEDS: PIPER/TAZO/NS 4.5gm 4.5 GM/100 ML BAG IVPB SCH ×3 (00:21→17:00)
[2020-10-02] MEDS: FUROSEMIDE 40 MG/4 ML VIAL IV SCH ×3 (00:22→17:00)
[2020-10-02] MEDS: IPRATROPIUM BROM 0.5MG/2.5ML NEB SCH ×4 (01:20→19:35)
[2020-10-02] MEDS: METHYLPREDNISOLONE 125 MG INJ IV SCH (05:19)
[2020-10-02] MEDS: ARFORMOTEROL TARTRATE 15 MCG/2 ML VIAL.NEB NEB SCH ×2 (07:40→19:35)
--- NOTE | 2020-10-02 08:01 | EKG ---
Test Date: 2020-09-29 Test Time: 09:26:37 Adult Basic Education Manager: MILANA MEASUREMENT RESULTS: Intervals: Rate: 98 NE: 142 QRSD: 90 QT: 330 QTc: 421 [place]: P: 77 NE: 142 QRS: 84 T: -33 INTERPRETIVE STATEMENTS: Sinus rhythm with occasional premature ventricular complexes Possible Left atrial enlargement Left ventricular hypertrophy with repolarization abnormality Abnormal ECG Compared to ECG 07/06/2019 15:16:51 Ventricular premature complex(es) now present Sinus tachycardia no longer present Atrial premature complex(es) no longer present Right-axis deviation no longer present Electronically Signed On 10-02-20 07:54:14 DRAFTER CHIEF DESIGN by William Jefferson
[2020-10-02] MEDS: ENOXAPARIN 40 MG/0.4 ML SQ SCH (09:00)
[2020-10-02] MEDS: DOXYCYCLINE 100 MG CAP PO SCH ×2 (09:00→20:25)
--- NOTE | 2020-10-02 11:16 | P.PN ---
Subjective Date of Service: 10/02/20 Chief Complaint: Pneumonia with pleural effusion Subjective: Improving (Patient is improving still complaining of a slight pain on the right side) Review of Systems General: Weakness Respiratory: Shortness of Breath Cardiovascular: Chest Pain Physical Examination - Vital Signs Temperature: 97.7 F Blood Pressure: 114/70 Pulse: 63 Respirations: 23 Pulse Ox (%): 96 - Physical Exam General: Alert, Oriented x3, Mild distress Respiratory: Crackles/rales (Crackles on the right side), Expiratory wheezes - Studies Medications List Reviewed: Yes Assessment & Plan - Problems (Diagnosis) (1) COPD exacerbation Onset Date: 08/13/18 Current Visit: No Status: Acute Plan: COPD stable (2) Pneumonia Current Visit: Yes Status: Acute Plan: Patient admitted with a right upper lobe pneumonia and a small pleural effusion appears to be loculated over his very high risk for a VATS procedure as he has terminal COPD far he is clinically doing better will repeat his labs vital signs are stable patient has oxygen at home cultures are negative possible change him over to p.o. 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
[2020-10-02 12:10] LABS: Hematocrit 36.2 % (39.6-49.0); MPV 9.2 fL (7.6-11.3); RBC Red Blood Cell Count 3.63 M/uL (4.33-5.43)
[2020-10-02 12:26] LABS: Potassium 3.9 mmol/L (3.5-5.1)
--- NOTE | 2020-10-02 12:53 | P.PN ---
Subjective Date of Service: 10/01/[address] scan revealed large loculated pleural effusion. I spoke to Pulmonary regarding this. Patient is high risk for any kind of surgical intervention including VATS procedure. At this time, will manage conservatively. Continue with IV antibiotic therapy. Continue with neb treatments. Patient does not have any fevers and no pleuritic chest pain at this time. His left lung has large bullae area and really no great area for oxygen exchange. Continue with antibiotic therapy and monitor patient's clinical symptoms. Wean down his oxygen as well. Review of Systems 10-point ROS is otherwise unremarkable Physical Examination - Vital Signs Temperature: 97.7 F Blood Pressure: 114/70 Pulse: 63 Respirations: 23 Pulse Ox (%): 96 - Physical Exam General: Alert, In no apparent distress, Oriented x2 Respiratory: Diminished, Crackles/rales, Other (Patient has diminished left- sided breath sounds.) Cardiovascular: Regular rate/rhythm, Normal S1 S2, Systolic murmur Gastrointestinal: Normal bowel sounds, Soft and benign, Non-distended, No tenderness Musculoskeletal: No clubbing, No swelling, No tenderness Neurological: Normal strength at 5/5 x4 extr, Sensation intact, Cranial nerves 3-12 intact - Studies Medications List Reviewed: Yes Assessment & Plan - Problems (Diagnosis) (1) COPD exacerbation Onset Date: 08/13/18 Current Visit: No Status: Acute (2) Right upper lobe pneumonia Current Visit: Yes Status: Acute (3) Acute respiratory failure with hypoxia Current Visit: No Status: Acute (4) COPD (chronic obstructive pulmonary disease) Current Visit: No Status: Acute Qualifiers: COPD type: unspecified COPD Qualified Code(s): J44.9 - Chronic obstructive pulmonary disease, unspecified (5) NSTEMI (non-ST elevated myocardial infarction) Onset Date: 08/13/18 Current Visit: No Status: Acute (6) CAD (coronary artery disease) Onset Date: 08/13/18 Current Visit: No Status: Chronic Qualifiers: Coronary Disease-Associated Artery/Lesion type: [place] artery [place] vs. transplanted heart: [place] heart Associated angina: without angina Qualified Code(s): I25.10 - Atherosclerotic heart disease of [place] coronary artery without angina pectoris (7) CHF (congestive heart failure) Onset Date: 08/13/18 Current Visit: No Status: Chronic Qualifiers: Heart failure type: combined systolic and diastolic Heart failure chronicity: acute Qualified Code(s): I50.41 - Acute combined systolic (congestive) and diastolic (congestive) heart failure (8) HTN (hypertension) Onset Date: 08/13/18 Current Visit: No Status: Chronic Qualifiers: Hypertension type: essential hypertension Qualified Code(s): I10 - Essential (primary) hypertension (9) Loculated pleural effusion Current Visit: Yes Status: Acute (10) Emphysematous bleb of lung Current Visit: Yes Status: Acute - Plan Continue with plan of care as mentioned below 1. Continue with IV antibiotics 2. Awaiting sputum and blood culture 3. Repeat chest x-ray as needed 4. CT scan of the chest showed loculated pleural effusion with large emphysematous blebs to the left lung 5. Pulmonary consultation appreciated 6. Continue with nebs and IV steroids 7. O2 per protocol and will continue to wean 8. Hep-Lock IV 9. Repeat labs including CBC and renal function in a.m. 10. GI and DVT prophylaxis Discharge Plan: Home Plan to discharge in: Greater than 2 days - Advance Directives Does patient have a Living Will: No Does patient have a Durable POA for Healthcare: No - Code Status/Comfort Care Code Status: Full Code Critical Care: No Time Spent Managing PTS Care (In Minutes): 35
[2020-10-02] MEDS ORDERED: POTASSIUM 25 MEQ EFFERV TAB PO ONE (13:25)
[2020-10-02] MEDS: ACETAMINOPHEN 500 MG TAB PO PRN (17:14)
--- NOTE | 2020-10-02 18:31 | RAD REPORT ---
EXAM DESCRIPTION: US - Lower Extremity Arterial Bilat - 10/02/2020 6:08 pm CLINICAL HISTORY: Leg pain COMPARISON: None FINDINGS: Left dpuyn-tlx-oira amputation The waveforms of the right common femoral, right superficial femoral and right popliteal arteries are generally biphasic. Waveforms of the right posterior tibial and right dorsalis pedis artery are mono phasic Waveforms of the left common femoral and left superficial femoral artery are monophasic. The amplitud e of the left superficial femoral artery is significantly diminished. IMPRESSION: Abnormal waveforms of the left common femoral left superficial femoral artery suggests a high-grade l eft iliac artery stenosis Mild to moderate disease involving the proximal and mid arteries right lower extremity. Moderate dise ase involving the distal right lower extremity arteries
[2020-10-02] MEDS: predniSONE 20 MG TAB PO SCH (20:25)
[2020-10-03] MEDS: FUROSEMIDE 40 MG/4 ML VIAL IV SCH ×2 (00:11→08:29)
[2020-10-03] MEDS: PIPER/TAZO/NS 4.5gm 4.5 GM/100 ML BAG IVPB SCH ×3 (00:11→16:00)
[2020-10-03] MEDS: IPRATROPIUM BROM 0.5MG/2.5ML NEB SCH ×4 (01:30→19:45)
--- NOTE | 2020-10-03 05:32 | P.PN ---
Date of Service: 10/02/20 Subjective Continue with supportive care and antibiotic therapy. Patient does state that he has a difficult living situation and with the extreme cold he does not have the heat that he needs to keep himself Warm. Prognosis is poor long-term. Continue with antibiotic therapy along with nebs and steroids. Anticipate discharge over the next 48-72hrs hours. Review of Systems 10-point ROS is otherwise unremarkable Physical Examination - Vital Signs reviewed - Physical Exam General: Alert, In no apparent distress, Oriented x2 Respiratory: Diminished, Crackles/rales, Other (Patient has diminished left- sided breath sounds.) Cardiovascular: Regular rate/rhythm, Normal S1 S2, Systolic murmur Gastrointestinal: Normal bowel sounds, Soft and benign, Non-distended, No tenderness Musculoskeletal: No clubbing, No swelling, No tenderness Neurological: Normal strength at 5/5 x4 extr, Sensation intact, Cranial nerves 3-12 intact - Studies Medications List Reviewed: Yes Assessment & Plan - Problems (Diagnosis) (1) COPD exacerbation Onset Date: 08/13/18 Current Visit: No Status: Acute (2) Right upper lobe pneumonia Current Visit: Yes Status: Acute (3) Acute respiratory failure with hypoxia Current Visit: No Status: Acute (4) COPD (chronic obstructive pulmonary disease) Current Visit: No Status: Acute Qualifiers: COPD type: unspecified COPD Qualified Code(s): J44.9 - Chronic obstructive pulmonary disease, unspecified (5) NSTEMI (non-ST elevated myocardial infarction) Onset Date: 08/13/18 Current Visit: No Status: Acute (6) CAD (coronary artery disease) Onset Date: 08/13/18 Current Visit: No Status: Chronic Qualifiers: Coronary Disease-Associated Artery/Lesion type: [place] artery [place] vs. transplanted heart: [place] heart Associated angina: without angina Qualified Code(s): I25.10 - Atherosclerotic heart disease of [place] coronary artery without angina pectoris (7) CHF (congestive heart failure) Onset Date: 08/13/18 Current Visit: No Status: Chronic Qualifiers: Heart failure type: combined systolic and diastolic Heart failure chronicity: acute Qualified Code(s): I50.41 - Acute combined systolic (conges tive) and diastolic (congestive) heart failure (8) HTN (hypertension) Onset Date: 08/13/18 Current Visit: No Status: Chronic Qualifiers: Hypertension type: essential hypertension Qualified Code(s): I10 - Essential (primary) hypertension (9) Loculated pleural effusion Current Visit: Yes Status: Acute (10) Emphysematous bleb of lung Current Visit: Yes Status: Acute - Plan Continue with plan of care as mentioned below 1. Continue with IV antibiotics 2. Awaiting sputum and blood culture 3. Repeat chest x-ray as needed 4. CT scan of the chest showed loculated pleural effusion with large emphysematous blebs to the left lung 5. Pulmonary consultation appreciated 6. Continue with nebs and IV steroids 7. O2 per protocol and will continue to wean 8. Hep-Lock IV 9. Repeat labs including CBC and renal function in a.m. 10. GI and DVT prophylaxis Discharge Plan: Home Plan to discharge in: Greater than 2 days - Advance Directives Does patient have a Living Will: No Does patient have a Durable POA for Healthcare: No - Code Status/Comfort Care Code Status: Full Code Critical Care: No Time Spent Managing PTS Care (In Minutes): 35
[2020-10-03 06:19] LABS: Potassium 4.2 mmol/L (3.5-5.1)
[2020-10-03] MEDS: ARFORMOTEROL TARTRATE 15 MCG/2 ML VIAL.NEB NEB SCH ×2 (08:20→19:45)
[2020-10-03] MEDS: ENOXAPARIN 40 MG/0.4 ML SQ SCH (08:29)
[2020-10-03] MEDS: DOXYCYCLINE 100 MG CAP PO SCH ×2 (08:30→20:37)
[2020-10-03] MEDS: predniSONE 20 MG TAB PO SCH ×2 (08:39→20:50)
[2020-10-03] MEDS: ACETAMINOPHEN 500 MG TAB PO PRN (08:39)
--- NOTE | 2020-10-03 13:04 | RAD REPORT ---
EXAM DESCRIPTION: RAD - Chest Pa And Lat (2 Views) - 10/03/2020 12:47 pm CLINICAL HISTORY: pneumonia COMPARISON: CT chest September 30, portable chest September 29 TECHNIQUE: Frontal and lateral views of the chest were obtained. FINDINGS: The lungs are extensively fibrotic with flattened diaphragms and blunted costophrenic angl es. Large cystic cavity in the left apex has not changed. Pleural and parenchymal opacification in th e left lung field has not changed. Consolidation of the right upper lobe has improved. The central cy stic cavity measures slightly larger than prior imaging. Right base is better aerated. Sternotomy wires with fracture noted. This is a stable presentation. Heart size is normal and centr al vasculature is within normal limits. No pneumothorax. No acute bony finding noted. No aortic abn ormality. IMPRESSION: The dense consolidation of the right upper lobe has improved in volume. The central cavi tary component measure slightly larger. Remainder of the lung rankin are similar or slightly improved.
--- NOTE | 2020-10-03 13:40 | P.PN ---
Subjective Date of Service: 10/03/20 Primary Care Provider: Dr. Stephens Chief Complaint: Pneumonia with pleural effusion Subjective: Improving, Doing well Physical Examination - Vital Signs Temperature: 97.3 F Blood Pressure: 135/92 Pulse: 51 Respirations: 20 Pulse Ox (%): 97 - Studies Medications List Reviewed: Yes Assessment & Plan Discharge Plan: Home Plan to discharge in: 24 Hours Physician Review Additional Text: Physical exam: Patient alert, cooperative. No significant distress noted Heart: Regular rate and rhythm Lungs: Decreased to the right side Abdomen: Soft nontender nondistended Extremities: Good range of motion to the upper lower extremities Impression: Dyspnea secondary to small moderate loculated right pleural effusion complicated with COPD exacerbation and possible right upper lobe pneumonia Atrial fibrillation on chronic anti coagulation therapy Chronic systolic CHF Hypertension Hypothyroidism GERD CAD Plan: Dyspnea secondary to small moderate loculated right pleural effusion complicated with COPD exacerbation and possible right upper lobe pneumonia: Continue antibiotics. Spoke with pulmonology. Patient can be discharged home tomorrow with doxycycline and Cipro. Patient will need a continue with home oxygen. Patient not a candidate for VATS procedure due to his chronic condition. Anticipate improvement over the next day with possible discharge tomorrow. Atrial fibrillation on chronic anti coagulation therapy: Spoke with cardiology. No intervention required. Restart Eliquis. Chronic systolic CHF: Restart metoprolol and Entresto. Continue Lasix Hypertension: Continue medication Hypothyroidism: Continue medication GERD: Continue medication CAD: Continue medication Time Spent Managing Pts Care (In Minutes): 55
[2020-10-03] MEDS: FUROSEMIDE 40 MG TABLET PO SCH (16:00)
[2020-10-03] MEDS: PANTOPRAZOLE 40MG TABLET PO SCH (20:35)
[2020-10-03] MEDS: APIXABAN 5 MG TABLET PO SCH (20:35)
[2020-10-03] MEDS: ATORVASTATIN 80 MG TAB PO SCH (20:35)
[2020-10-03] MEDS: SACUBITRIL/VALSARTAN 24/26 MG TAB PO SCH (20:49)
[2020-10-04] MEDS: PIPER/TAZO/NS 4.5gm 4.5 GM/100 ML BAG IVPB SCH ×2 (00:56→09:04)
[2020-10-04] MEDS: IPRATROPIUM BROM 0.5MG/2.5ML NEB SCH ×4 (02:30→20:00)
[2020-10-04] MEDS: LEVOTHYROXINE SOD 0.075 MG TAB PO SCH (06:35)
[2020-10-04] MEDS: ARFORMOTEROL TARTRATE 15 MCG/2 ML VIAL.NEB NEB SCH ×2 (07:08→20:00)
[2020-10-04] MEDS: FUROSEMIDE 40 MG TABLET PO SCH ×2 (09:05→17:22)
[2020-10-04] MEDS: DOXYCYCLINE 100 MG CAP PO SCH ×2 (09:05→21:05)
[2020-10-04] MEDS: APIXABAN 5 MG TABLET PO SCH ×2 (09:05→21:01)
[2020-10-04] MEDS: ASPIRIN 81 MG CHEWABLE TABLET PO SCH (09:05)
[2020-10-04] MEDS: SACUBITRIL/VALSARTAN 24/26 MG TAB PO SCH ×2 (09:05→21:02)
[2020-10-04] MEDS: METOPROLOL TAR 25 MG TAB PO SCH (09:06)
[2020-10-04] MEDS: predniSONE 20 MG TAB PO SCH ×2 (09:06→21:02)
[2020-10-04] MEDS: allopurinoL 300 MG TAB PO SCH (09:06)
[2020-10-04] MEDS: PANTOPRAZOLE 40MG TABLET PO SCH ×2 (09:06→21:03)
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
[2020-10-04] MEDS: ATORVASTATIN 80 MG TAB PO SCH (21:01)
[2020-10-04] MEDS: AMOX/K CLAV 875 MG TAB PO SCH (21:04)
[2020-10-05] MEDS: IPRATROPIUM BROM 0.5MG/2.5ML NEB SCH ×2 (01:55→07:30)
[2020-10-05] MEDS: LEVOTHYROXINE SOD 0.075 MG TAB PO SCH (06:26)
[2020-10-05] MEDS: ARFORMOTEROL TARTRATE 15 MCG/2 ML VIAL.NEB NEB SCH ×2 (08:00→20:00)
[2020-10-05] MEDS: AMOX/K CLAV 875 MG TAB PO SCH (08:26)
[2020-10-05] MEDS: allopurinoL 300 MG TAB PO SCH (08:26)
[2020-10-05] MEDS: predniSONE 20 MG TAB PO SCH ×2 (08:26→22:03)
[2020-10-05] MEDS: ASPIRIN 81 MG CHEWABLE TABLET PO SCH (08:26)
[2020-10-05] MEDS: SACUBITRIL/VALSARTAN 24/26 MG TAB PO SCH ×2 (08:26→22:01)
[2020-10-05] MEDS: PANTOPRAZOLE 40MG TABLET PO SCH ×2 (08:27→22:02)
[2020-10-05] MEDS: FUROSEMIDE 40 MG TABLET PO SCH ×2 (08:27→16:13)
[2020-10-05] MEDS: METOPROLOL TAR 25 MG TAB PO SCH (08:28)
[2020-10-05] MEDS: DOXYCYCLINE 100 MG CAP PO SCH ×2 (08:29→21:00)
[2020-10-05] MEDS: APIXABAN 2.5 MG TABLET PO SCH ×2 (09:42→22:03)
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
[2020-10-05] MEDS: levoFLOXacin 750 MG TAB PO SCH (13:47)
[2020-10-05] MEDS: ONDANSETRON 4 MG/2 ML VIAL IV PRN (15:43)
[2020-10-05] MEDS: ATORVASTATIN 80 MG TAB PO SCH (22:03)
[2020-10-06] MEDS: LEVOTHYROXINE SOD 0.075 MG TAB PO SCH (05:52)
[2020-10-06] MEDS: DOXYCYCLINE 100 MG CAP PO SCH ×2 (09:00→21:00)
[2020-10-06] MEDS: METOPROLOL TAR 25 MG TAB PO SCH (09:00)
[2020-10-06] MEDS: SACUBITRIL/VALSARTAN 24/26 MG TAB PO SCH ×2 (09:00→21:16)
[2020-10-06] MEDS: FUROSEMIDE 40 MG TABLET PO SCH ×2 (09:00→17:00)
[2020-10-06] MEDS: levoFLOXacin 750 MG TAB PO SCH (09:03)
[2020-10-06] MEDS: predniSONE 20 MG TAB PO SCH ×2 (09:03→21:16)
[2020-10-06] MEDS: PANTOPRAZOLE 40MG TABLET PO SCH ×2 (09:03→21:18)
[2020-10-06] MEDS: ALBUTEROL 2.5 MG/3 ML NEB SOL NEB PRN (09:05)
[2020-10-06] MEDS: ASPIRIN 81 MG CHEWABLE TABLET PO SCH (09:05)
[2020-10-06] MEDS: ARFORMOTEROL TARTRATE 15 MCG/2 ML VIAL.NEB NEB SCH ×2 (09:05→20:30)
[2020-10-06] MEDS: IPRATROPIUM BROM 0.5MG/2.5ML NEB PRN ×2 (09:05→20:30)
[2020-10-06] MEDS: allopurinoL 300 MG TAB PO SCH (09:05)
[2020-10-06] MEDS: APIXABAN 2.5 MG TABLET PO SCH ×2 (10:21→21:18)
--- NOTE | 2020-10-06 11:10 | CON ---
Date of Consultation: 10/06/2020 The patient admitted by Dr. Dillard on 09/29/2020. I saw the patient on 10/03/2020. Reason For Consultation: Peripheral arterial disease. History Of Present Illness: Mr. Sams is 70, I have known him from office visit and hospital admis ever when complicated past medical history. He had came in with COPD exacerbation, was co mplaining of some left leg pain, although he has a left BKA. He was found to have an iliac stenosis on the left side. This was done by arterial Doppler. The patient does not walk much because of his BKA. He has a prosthesis. He denied any cardiac symptoms. He has a history of CABG, hypertension, dyslipidemia, hypothyroidism, gastroesophageal reflux disease. Allergies: COLD TREATMENT. Medications: At home include aspirin, inhalers, Lipitor, Eliquis, Lasix, Synthroid, metoprolol, Prot david, and Entresto. Review of Systems: Negative. Social History: Positive for tobacco. Family History: Positive for heart disease. Physical Examination: General: He was pleasant, no acute distress. Vital Signs: Stable, afebrile. HEENT: Negative. Neck: Supple without any bruit, lymphadenopathy, JVD, or thyromegaly. Chest: Revealed expiratory wheezing. Cardiac: Revealed a regular rhythm. No murmurs, gallops, rubs. Abdomen: Benign. Extremities: Revealed BKA. He had good pulses on the right side. Diagnostic Data: Catheterization that was done in July 2018 revealed inoperable coronary artery disease. EKG showed sinus rhythm with left ventricular hypertrophy. Chest x-ray and CTA showed pneu monia or pleural effusion. Arterial Doppler showed left iliac stenosis. Impression And Plan: 1.Coronary artery disease with left iliac stenosis. The patient is status post left [id number] tation. He is a very poor candidate for surgical intervention. Certainly, abdominal angiogram with runoff down the road may be reasonable depending on pulmonary and cardiac status. We will plan for t hat as an outpatient. at this point. I would continue his regimen, he is already on stat in, aspirin, and Eliquis. 2.Chronic obstructive pulmonary disease exacerbation. 3.Pneumonia with pleural effusion. He is on inhalers, Lovenox, Lasix, steroids and antibiotics whic h is appropriate. 4.Inoperable coronary artery disease, status post coronary artery bypass graft. The last catheteriz ation in July 2018. He is not having any cardiac symptoms. 5.His other problems include hypertension, dyslipidemia, hypothyroidism, and gastroesophageal reflux disease. All of these are stable at this point. ANTHONY/DANNY Voice ID: [id number] Report ID: [id number]
--- NOTE | 2020-10-06 11:16 | PN ---
Date of Progress Note: 10/04/2020 Subjective: Mr. Sams was seen because of COPD, peripheral arterial disease. He has a history of CABG that is inoperable. He has a history of COPD that is severe. Has a history of hypertension, dy slipidemia, hypothyroidism, gastroesophageal reflux disease, well controlled. He is awaiting placeme nt and home oxygen. Has had an iliac stenosis on the left side, but has a left BKA. He is not very mobile. I will continue to observe him as far as that is concerned. If he develops actual claudicat ion, we will perform an abdominal angiogram with runoff as an outpatient. Meanwhile, he is stable to go home whenever it is okay with Dr. Dillard. No change in medical therapy recommended at this point . ANTHONY/DANNY Voice ID: [id number] Report ID: [id number]
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
[2020-10-06] MEDS: ENSURE ENLIVE 237 ML CAN PO SCH (21:00)
[2020-10-06] MEDS: ATORVASTATIN 80 MG TAB PO SCH (21:15)
[2020-10-06] MEDS ORDERED: MELATONIN 5 MG TABLET PO PRN (23:38)
[2020-10-07] MEDS: ONDANSETRON 4 MG/2 ML VIAL IV PRN (03:35)
[2020-10-07] MEDS ORDERED: TRAMADOL HCL 50 MG TAB PO ONE (06:32)
[2020-10-07] MEDS: LEVOTHYROXINE SOD 0.075 MG TAB PO SCH (06:42)
[2020-10-07] MEDS: ASPIRIN 81 MG CHEWABLE TABLET PO SCH (08:35)
[2020-10-07] MEDS: PANTOPRAZOLE 40MG TABLET PO SCH (08:35)
[2020-10-07] MEDS: FUROSEMIDE 40 MG TABLET PO SCH (08:36)
[2020-10-07] MEDS: allopurinoL 300 MG TAB PO SCH (08:36)
[2020-10-07] MEDS: predniSONE 20 MG TAB PO SCH (08:36)
[2020-10-07] MEDS: METOPROLOL TAR 25 MG TAB PO SCH (08:38)
[2020-10-07] MEDS: SACUBITRIL/VALSARTAN 24/26 MG TAB PO SCH (08:38)
[2020-10-07] MEDS: DOXYCYCLINE 100 MG CAP PO SCH (08:39)
[2020-10-07] MEDS: ENSURE ENLIVE 237 ML CAN PO SCH (08:41)
[2020-10-07] MEDS: ARFORMOTEROL TARTRATE 15 MCG/2 ML VIAL.NEB NEB SCH (08:43)
[2020-10-07] MEDS: ALBUTEROL 2.5 MG/3 ML NEB SOL NEB PRN (08:43)
[2020-10-07] MEDS: IPRATROPIUM BROM 0.5MG/2.5ML NEB PRN (08:43)
[2020-10-07] MEDS: APIXABAN 2.5 MG TABLET PO SCH (09:00)
[2020-10-07] MEDS: levoFLOXacin 750 MG TAB PO SCH (10:23)
--- NOTE | 2020-10-07 13:09 | P.DS ---
Admission Date: 09/29/20 Discharge Date: 10/07/20 Primary Care Provider: Dr. Stephens Disposition: ROUTINE DISCHARGE Discharge Condition: GOOD Reason for Admission: Pneumonia with pleural effusion Consultations: Pulmonary-Dr. Stephens Cardiology-Dr. Jefferson Procedures: COVID: Negative CT Chest: FINDINGS: Airspace consolidation is noted in the right upper lobe. Large emphysematous bulla noted in both lung apices, larger on the left. Ill-defined opacities are present in the left lung base. Small to moderate size loculated right pleural effusion is noted. No pneumothorax. No axillary, mediastinal or hilar adenopathy. Heavy atherosclerosis of the abdominal aorta noted. Gallstones are present. No lytic or blastic bone lesion. All CT scans are performed using dose optimization technique as appropriate and may include automated exposure control or mA/KV adjustment according to patient size. IMPRESSION: Small to moderate loculated right pleural effusion is noted. Moderate consolidation is seen in the right upper lobe likely representing pneumonia. Mild nodular opacities in the left base laterally likely also infection etiology. Arterial Doppler: COMPARISON: None FINDINGS: Left [id number] amputation The waveforms of the right common femoral, right superficial femoral and right popliteal arteries are generally biphasic. Waveforms of the right posterior tibial and right dorsalis pedis artery are monophasic Waveforms of the left common femoral and left superficial femoral artery are monophasic. The amplitude of the left superficial femoral artery is significantly diminished. IMPRESSION: Abnormal waveforms of the left common femoral left superficial femoral artery suggests a high-grade left iliac artery stenosis Mild to moderate disease involving the proximal and mid arteries right lower extremity. Moderate disease involving the distal right lower extremity arteries CXR: FINDINGS: The lungs are extensively fibrotic with flattened diaphragms and blunted costophrenic angles. Large cystic cavity in the left apex has not changed. Pleural and parenchymal opacification in the left lung field has not changed. Consolidation of the right upper lobe has improved. The central cystic cavity measures slightly larger than prior imaging. Right base is better aerated. Sternotomy wires with fracture noted. This is a stable presentation. Heart size is normal and central vasculature is within normal limits. No pneumothorax. No acute bony finding noted. No aortic abnormality. IMPRESSION: The dense consolidation of the right upper lobe has improved in volume. The central cavitary component measure slightly larger. Remainder of the lung rankin are similar or slightly improved. Medical Problem List: Dyspnea secondary to small moderate loculated right pleural effusion complicated with COPD exacerbation and possible right upper lobe pneumonia Atrial fibrillation on chronic anti coagulation therapy Chronic systolic CHF Hypertension Hypothyroidism GERD CAD PVD with a Doppler showing high grade left iliac artery stenosis Brief History of Present Illness: 70-year-old male with multiple medical problems presented with increasing shortness of breath. Patient found to have right loculated pleural effusion, COPD exacerbation and possible pneumonia. Patient admitted for further evaluation and treatment. Hospital Course: Patient presented with Dyspnea secondary to small moderate loculated right pleural effusion complicated with COPD exacerbation and possible right upper lobe pneumonia. Patient was seen and evaluated by pulmonology. Patient improved with IV antibiotic therapy and diuresis. Pulmonology did not recommend any cardiovascular intervention due to his chronic diseases. Patient has remained stable. Discharge was delayed due to the winter. At discharge patient will continue with Levaquin 750 mg 1 pill daily and doxycycline 100 mg 1 pill twice daily for 7 days. For his COPD the patient will continue with Brovana 1 unit dose twice daily and albuterol 1 unit dose 3 times a day as needed for shortness of breath. The patient will continue with prednisone 20 mg 1 pill twice daily for 7 days then 1 pill once daily for 7 days. The patient will continue with home oxygen to maintain sats above 93%. Patient currently on 3 L per nasal cannula. Recommend follow up with pulmonology in 1 week to follow up this hospitalization. Recommend to recheck chest x-ray in 2-4 weeks to monitor stability. Patient was seen and evaluated by Cardiology. Patient with other medical problems including atrial fibrillation on chronic anti coagulation therapy, chronic systolic CHF, hyperlipidemia and hypertension. Medications were adjusted during the course of his stay. At discharge the patient will continue with his current medications of aspirin 81 mg daily, Eliquis 5 mg 1 pill twice daily, metoprolol 25 mg daily, Entresto 24/26 one pill twice daily, Lipitor 80 mg daily, and Lasix 40 mg 1 pill twice daily. At discharge patient will need to continue with a 1500 cc per day fluid restriction and low-salt diet. Recommend to monitor his weight daily. If his weight increases then further adjustment in medication may be required. This can be done with the help of his PCP, cardiology or pulmonology. Patient with peripheral vascular disease. Patient will continue with aspirin and Plavix as directed. Patient has left iliac artery stenosis. Recommend follow up with cardiology to further evaluate as an outpatient. Patient with GERD. At discharge patient will continue with Protonix 40 mg 1 pill twice daily. Patient with hypothyroidism. At discharge she will continue with levothyroxine 75 mcg daily. Patient may continue his other medications including allopurinol 300 mg daily. For nutrition purposes the patient will continue with Ensure twice daily. Vital Signs/Physical Exam: Temp Pulse Resp BP Pulse Ox 98.0 F 65 20 106/60 98 10/07/20 08:00 10/07/20 08:38 10/07/20 08:00 10/07/20 08:38 10/07/20 08:00 General: Alert, In no apparent distress, Oriented x3, Cooperative HEENT: Atraumatic Neck: Supple Respiratory: Other (Patient does not appear distress. Patient currently on 3 L per nasal cannula) Cardiovascular: Normal pulses, Regular rate/rhythm Gastrointestinal: Normal bowel sounds, No masses, No rebound, No guarding Neurological: Normal speech, Normal strength at 5/5 x4 extr, Normal tone Laboratory Data at Discharge: WBC 9.20 K/uL (4.3-10.9) D 10/02/20 11:56 Hgb 11.8 g/dL (13.6-17.9) L 10/02/20 11:56 Hct 36.2 % (39.6-49.0) L 10/02/20 11:56 Plt Count 187 K/uL (152-406) 10/02/20 11:56 PT 19.1 SECONDS (9.5-12.5) H 09/29/20 09:50 INR 1.65 09/29/20 09:50 Sodium 141 mmol/L (136-145) 10/03/20 05:52 Potassium 4.2 mmol/L (3.5-5.1) 10/03/20 05:52 BUN 35 mg/dL (7-18) H 10/03/20 05:52 Creatinine 1.15 mg/dL (0.55-1.3) 10/03/20 05:52 Glucose 131 mg/dL (74-106) H 10/03/20 05:52 Phosphorus 3.2 mg/dL (2.5-4.9) 09/30/20 05:49 Magnesium 2.0 mg/dL (1.8-2.4) 09/30/20 05:49 Total Bilirubin 0.6 mg/dL (0.2-1.0) 09/30/20 05:49 AST 19 U/L (15-37) 09/30/20 05:49 ALT 18 U/L (12-78) 09/30/20 05:49 Alkaline Phosphatase 111 U/L (45-117) 09/30/20 05:49 Triglycerides 68 mg/dL (<150) 09/30/20 05:49 Cholesterol 112 mg/dL (<200) 09/30/20 05:49 HDL Cholesterol 56 mg/dL (40-60) 09/30/20 05:49 Cholesterol/HDL Ratio 2.00 09/30/20 05:49 Home Medications: allopurinoL [Zyloprim*] 300 mg PO DAILY 08/13/18 Atorvastatin Calcium [Lipitor] 80 mg PO BEDTIME #30 tab 08/15/18 Albuterol Sulfate [Albuterol Sulfate 0.083% Neb Soln] 2.5 mg IH TID 07/06/19 Albuterol Sulfate [Proair Hfa] 8.5 gm IH Q6HP PRN 07/06/19 Apixaban [Eliquis *] 5 mg PO BID 09/29/20 Aspirin 81 mg PO DAILY 09/29/20 Levothyroxine [Synthroid*] 75 mcg PO [id number] 09/29/20 Metoprolol Tartrate [Lopressor*] 25 mg PO DAILY 09/29/20 Pantoprazole Sodium [Protonix] 40 mg PO Q12HR 09/29/20 Sacubitril/Valsartan [Entresto 24 mg-26 mg Tablet] 0.5 each PO BID 09/29/20 Arformoterol Tartrate [Brovana] 15 mcg NEB BIDRESP #60 vial.neb 10/07/20 Doxycycline Hyclate 100 mg PO BID #14 tablet 10/07/20 Ensure Enlive 237 ml PO BID #60 can 10/07/20 Furosemide [Lasix*] 40 mg PO BIDL #60 tab 10/07/20 levoFLOXacin [Levaquin*] 750 mg PO DAILY #7 tab 10/07/20 predniSONE [Prednisone*] 20 mg PO SEECOM #21 tab 10/07/20 New Medications: Arformoterol Tartrate [Brovana] 15 mcg NEB BIDRESP #60 vial.neb Doxycycline Hyclate 100 mg PO BID #14 tablet Ensure Enlive 237 ml PO BID #60 can Furosemide [Lasix*] 40 mg PO BIDL #60 tab levoFLOXacin [Levaquin*] 750 mg PO DAILY #7 tab predniSONE [Prednisone*] 20 mg PO SEECOM #21 tab Physician Discharge Instructions: Follow up with PCP in 1 week to follow up this hospitalization. Patient presented with Dyspnea secondary to small moderate loculated right pleural effusion complicated with COPD exacerbation and possible right upper lobe pneumonia. Patient was seen and evaluated by pulmonology. Patient improved with IV antibiotic therapy and diuresis. Pulmonology did not recommend any cardiovascular intervention due to his chronic diseases. Patient has remained stable. Discharge was delayed due to the winter. At discharge patient will continue with Levaquin 750 mg 1 pill daily and doxycycline 100 mg 1 pill twice daily for 7 days. For his COPD the patient will continue with Brovana 1 unit dose twice daily and albuterol 1 unit dose 3 times a day as needed for shortness of breath. The patient will continue with prednisone 20 mg 1 pill twice daily for 7 days then 1 pill once daily for 7 days. The patient will continue with home oxygen to maintain sats above 93%. Patient currently on 3 L per nasal cannula. Recommend follow up with pulmonology in 1 week to follow up this hospitalization. Recommend to recheck chest x-ray in 2-4 weeks to monitor stability. Patient was seen and evaluated by Cardiology. Patient with other medical problems including atrial fibrillation on chronic anti coagulation therapy, chronic systolic CHF, hyperlipidemia and hypertension. Medications were adjusted during the course of his stay. At discharge the patient will continue with his current medications of aspirin 81 mg daily, Eliquis 5 mg 1 pill twice daily, metoprolol 25 mg daily, Entresto 24/26 one pill twice daily, Lipitor 80 mg daily, and Lasix 40 mg 1 pill twice daily. At discharge patient will need to continue with a 1500 cc per day fluid restriction and low-salt diet. Recommend to monitor his weight daily. If his weight increases then further adjustment in medication may be required. This can be done with the help of his PCP, cardiology or pulmonology. Patient with peripheral vascular disease. Patient will continue with aspirin and Plavix as directed. Patient has left iliac artery stenosis. Recommend follow up with cardiology to further evaluate as an outpatient. Patient with GERD. At discharge patient will continue with Protonix 40 mg 1 pill twice daily. Patient with hypothyroidism. At discharge she will continue with levothyroxine 75 mcg daily. Patient may continue his other medications including allopurinol 300 mg daily. For nutrition purposes the patient will continue with Ensure twice daily. Diet: AHA Activity: Fall precautions Followup: NONE,NONE [Primary Care Provider] - Time spent managing pt's care (in minutes): 55
[2020-10-07 17:07] VITALS: BP 119/68; TEMP 97.9
[2020-10-07 17:45] VITALS: O2SAT 98
[2020-10-07] MEDS ORDERED: APIXABAN 5 MG TABLET PO SCH (21:00)
== END 2020-10-07 17:31 | disposition home or self-care (01) | DRG 193 ==
LOC: ER 09:20 → ERHOLD 12:33 → 2ND 13:38
PROVIDERS: ADMIT Hospitalist; ATTEND Family Medicine
PROC: 5A09557 Assistance with Respiratory Ventilation, Greater than 96 Consecutive Hours, Continuous Positive Airway Pressure (ICD-10-PCS; principal; 2020-09-29)
DX: J18.9 Pneumonia, unspecified organism (principal); J96.01 Acute respiratory failure with hypoxia; I21.4 Non-ST elevation (NSTEMI) myocardial infarction; J44.1 Chronic obstructive pulmonary disease with (acute) exacerbation; J44.0 Chronic obstructive pulmonary disease with (acute) lower respiratory infection; I50.22 Chronic systolic (congestive) heart failure; I11.0 Hypertensive heart disease with heart failure; E03.9 Hypothyroidism, unspecified; D64.9 Anemia, unspecified; I25.10 Atherosclerotic heart disease of native coronary artery without angina pectoris; E78.5 Hyperlipidemia, unspecified; K21.9 Gastro-esophageal reflux disease without esophagitis; I48.91 Unspecified atrial fibrillation; E87.6 Hypokalemia; F17.200 Nicotine dependence, unspecified, uncomplicated; I70.292 Other atherosclerosis of native arteries of extremities, left leg; Z88.9 Allergy status to unspecified drugs, medicaments and biological substances; Z79.82 Long term (current) use of aspirin; Z79.01 Long term (current) use of anticoagulants; Z79.890 Hormone replacement therapy; Z79.899 Other long term (current) drug therapy; Z95.5 Presence of coronary angioplasty implant and graft; Z20.822 Contact with and (suspected) exposure to COVID-19
CPT/HCPCS: 0240U; 36415; 71045; 71046; 71260; 80048; 80053; 80061; 80076; 82805; 83605; 83735; 83880; 84100; 84145; 84439; 84443; 84484; 85025; 85027; 85610; 87040; 93005; 93925; 94640; 94660; 94760; 96365; 96366; 99285; J0456; J0696; J1650; J1940; J2405; J2930; J7050; J7512; J7605; Q9967

== ENCOUNTER 2020-10-12 11:37 | Emergency (ER) | payer OTHER ==
--- OUTSIDE RECORDS SUMMARY | 2020-10-12 11:44 | XMS REPORT | Continuity of Care Document ---
:1950 Author Organization [facility] t Address [address] [place] [address] Care Team Providers Name Role Phone Steve Mendez MD Primary Care Physician Weston GUERRA Attending Clinician Elie OZUNA Attending Clinician Jocelyne WATTS Attending Clinician Unavailable Mansoor GUERRA Attending Clinician Apoorva Santos MD Attending Clinician Andrez Ramos MD Attending Clinician MANSOOR Attending Clinician Unavailable APOORVA SANTOS Admitting Clinician Unavailable Payers Payer Name Policy Type Policy Effective Date Expiration Date Sour ce Number MEDICAREMEDICARE A [id number] HENRRY Hillman [id number] 2013- 00:00:00 - Medical PresentMedicare Center MEDICAIDMEDICAID OF [id number] HENRRY Hillman [id number] 2015 00:00:00 - Medical -PresentMedicaid Center Problems Condition Condition Condition Status Onset Resolution Last Treating Co mments Source Name Details Category Date Date Treatment Clinician Date Acute Acute Disease Active 2019-[address] [facility] decompensa decompensa 2-10 Ashley kes - tyra heart tyra heart 00:00: Medi beverly failure failure 00 Center SOB SOB Disease Active 2019-[address] [facility] (shortness (shortness 2-10 Ashley kes - of breath) of breath) 00:00: Me dical 00 Center Atrial Atrial Disease Active [facility] fibrillati fibrillati 3-01 Ashley kes - on with on with 00:00: Medical RVR RVR 00 Center Moraxella Moraxella Disease Active [facility] catarrhali catarrhali 3-01 Ashley kes - s s 00:00: Medical bronchitis bronchitis 00 Ce nter Physical Physical Disease Active [facility] deconditio deconditio 3-01 Ashley kes - luiza luiza 00:00: Medical 00 Center Respirator Respirator Disease Active [facility] y failure y failure 2-25 [facility] - with with 00:00: Medical hypoxia hypoxia 00 Center Coronary Coronary Disease Active [facility] artery artery 2-24 [facility] - disease disease 00:00: Medical 00 Center Acute Acute Disease Active [facility] post-opera post-opera 2-24 Ashley kes - tive pain tive pain 00:00: Medi beverly 00 Center Acute Acute Disease Active [facility] respirator respirator 2-24 Ashley kes - y y 00:00: Medical insufficie insufficie 00 Ce nter ncy, ncy, postoperat postoperat gordy gordy Postoperat Postoperat Disease Active [facility] gordy anemia gordy anemia 2-24 Ashley kes - due to due to 00:00: Medical acute acute 00 Center blood loss blood loss CAD CAD Disease Active [facility] (coronary (coronary 2-17 [facility] - artery artery 00:00: Medical disease) disease) 00 Center COPD COPD Disease Active [facility] (chronic (chronic 2-17 [facility] - obstructiv obstructiv 00:00: Me dical e e 00 Center pulmonary pulmonary disease) disease) HTN HTN Disease Active [facility] (hypertens (hypertens 2-17 Ashley kes - ion) ion) 00:00: Medical 00 Center HLD HLD Disease Active [facility] (hyperlipi (hyperlipi 2-17 Ashley kes - demia) demia) 00:00: Medical 00 Center Hypothyroi Hypothyroi Disease Active [facility] dism dism 2-17 [facility] - 00:00: Medical 00 Center 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 -17 [facility] - carotid carotid 00:00: Medical artery artery 00 Center Allergies, Adverse Reactions, Alerts Allergy Allergy Status Severity Reaction(s) Onset Inactive Treating Comm ents Source Name Type Date Date Clinician Doxylami Drug Active Other (See 2019-08 Patient HENRRY [place] n-Pse-Dm Intolera Comments) 2-10 states he [facility] - -Acetami nce 00:00: gets Medical nophen 00 nervous Center Morphine Adverse Active Info Not [facility] Sulfate Reaction Available [facility] Family History Family Member Diagnosis Comments Start Date Stop Date Source Natural brother Heart disease [facility] Natural mother Heart disease [facility] Social History Social Habit Start Date Stop Date Quantity Comments Source Sex Assigned At [facility] Cigarettes smoked 2020-08-16 2020-08-16 [facility] - current (pack per 00:00:00 00:00:00 [facility] Center day) - Reported Cigarette 2020-08-16 2020-08-16 [facility] - pack-years 00:00:00 00:00:00 [facility] Tobacco use and 2020-08-16 2020-08-16 Never used [facility] - exposure 00:00:00 00:00:00 [facility] Alcohol intake 2020-08-16 2020-08-16 [facility]er [facility] - 00:00:00 00:00:00 of alcohol [facility] (finding) Alcohol Comment 2015-10-05 2015-10-05 2 bo [facility] kes - 00:00:00 00:00:00 [facility] Smoking Status Start Date Stop Date Source Current every day smoker 2020-08-16 00:00:00 [facility] Medications Ordered Filled Start Stop Current Ordering Indication Dosage Frequency Signature Comments Components Source Medication Medication Date Date Medication? Clinician (SIG) Name Name cinacalcet Yes TAKE 1 [facility] (SENSIPAR) 1-29 TABLET(30 Luke s - 30 MG 00:00: MG) BY Medical tablet 00 MOUTH Center DAILY WITH BREAKFAST furosemide Yes TAKE 1 [facility] (LASIX) 20 1-29 TABLET(20 Luke s - MG tablet 00:00: MG) BY Medica l 00 MOUTH Center DAILY atorvastati Yes TAKE [address] [facility] [facility] n (LIPITOR) 1-29 TABLET(40 Vinay es - 40 MG 00:00: MG) BY Medical tablet 00 MOUTH Center DAILY metoprolol Yes TAKE 1 [facility] succinate 1-29 TABLET(25 [facility] - (TOPROL-XL) 00:00: MG) BY Medi beverly 25 MG 24 hr 00 MOUTH Center tablet DAILY levothyroxi Yes TAKE [address] [facility] ne -29 TABLET(75 [facility] - (SYNTHROID, 00:00: MCG) BY Med ical LEVOTHROID) 00 MOUTH Center 75 MCG EVERY tablet MORNING ON AN EMPTY STOMACH Entresto Yes TAKE 1/2 [facility] 24-26 mg 1-29 TABLET BY [facility] - Tab 00:00: MOUTH Medical 00 TWICE Center DAILY nicotine 2019-08 Yes 1{patch Q24H Place [address] [facility] (NICODERM 2-29 } patch onto Luke s - CQ) 14 14:19: the skin Medical mg/24 hr 34 daily. Center patch albuterol 2019-08 Yes 1{puff} Inhale [address] HFA 2-29 puff by [facility]ukes - (VENTOLIN 14:13: mouth via Med ical HFA) 90 53 inhaler Center mcg/actuati every 6 on inhaler (six) hours as needed for Wheezing. allopurinol 2019-08 Yes 100mg QD Take [address] (ZYLOPRIM) 2-29 mg by [facility] - 100 MG 14:10: mouth Medical tablet 10 daily. Center levothyroxi 2019-08- No 75ug Take [address] ne 2-29 12-29 mcg by [facility]ukes - (SYNTHROID, 14:03: 00:00 mouth Medi beverly LEVOTHROID) 40 :00 Every Center 75 MCG morning on tablet an empty stomach . cinacalcet 2019-08- No 30mg Take [address] [facility] (SENSIPAR) 10-10- tablet (30 Ashley kes - 30 MG 00:00: 00:00 mg total) Medica l tablet 00 :00 by mouth Center daily with breakfast for 30 days. furosemide 2019-08 No 20mg QD Take [address] [facility] (LASIX) 20 -09 09- tablet (20 Ashley kes - MG tablet 00:00: 00:00 mg total) Me dical 00 :00 by mouth Center daily for 30 days. metoprolol 2019-08- No 25mg QD Take [address] succinate 10-10 tablet (25 Vinay es - (TOPROL-XL) 00:00: 00:00 mg total) Medical 25 MG 24 hr 00 :00 by mouth Cent er tablet daily for 30 days. aspirin 81 2019-08- No 81mg QD Take [address] [facility] MG chewable 10-10 tablet (81 L ukes - tablet 00:00: 23:59 mg total) Medic al 00 :00 by mouth Center daily for 30 days. pantoprazol 2019-08- No 40mg QD Take [address] [facility] e 10-10 tablet (40 [facility] - (PROTONIX) 00:00: 23:59 mg total) M edical 40 MG 00 :00 by mouth Center tablet daily for 30 days. albuterol 2019-08- No 1{ampul Take [address] (ACCUNEB) -08 08- e} ampule by Luke s - 0.63 mg/3 09:06: 00:00 nebulizati M edical mL 18 :00 on every 6 Center nebulizer (six) solution hours as needed for Wheezing. atorvastati 2019-08- No 80mg QD Take [address] [facility] n (LIPITOR) -08 08- by mouth Vinay es - 80 MG 09:06: 00:00 daily. Medical tablet 18 :00 [place] aspirin 325 2019-08- No 325mg QD Take [address] MG tablet 2- 12-21 mg by [facility]ukes - 09:06: 00:00 mouth Medical 14 :00 daily. [place] esomeprazol 2019-08- No 20mg QD Take [address] [facility] e (NEXIUM) 2- 12-21 by mouth Luke s - 20 MG 09:06: 00:00 daily. Medical capsule 14 :00 [facility] predniSONE 2019-08- No 10mg QD Take [address] [facility] (DELTASONE) - 12-21 by mouth Vinay es - 10 MG 09:06: 00:00 daily. Medical tablet 14 :00 [facility] budesonide 2019-08- Yes .5mg Q.5D Take [address] (PULMICORT) 10-09 (0.5 mg Luke s - 0.5 mg/2 mL 00:00: 23:59 total) by Medical nebulizer 00 :00 nebulizati Cent er solution on 2 (two) times daily. nitroglycer 2019-08- Yes Put [address] in 10-09 under [facility]ukes - (NITROSTAT) 00:00: 23:59 tongue Med ical 0.4 MG SL 00 :00 every 5min Cent er tablet as needed for chest pain.No more than 3 doses in 15min.Call 911 if pain unrelieved 5min after 1st dose. atorvastati 2019-08- No 40mg QD Take [address] [facility] n (LIPITOR) 10-09 tablet (40 L ukes - 40 MG 00:00: 00:00 mg total) Medica l tablet 00 :00 by mouth Center daily for 30 days. levothyroxi 2019-08- No 75ug Take [address] [facility] [facility] ne 10-09 tablet (75 [facility] - (SYNTHROID, 00:00: 00:00 mcg total) Medical LEVOTHROID) 00 :00 by mouth Cent er 75 MCG Every tablet morning on an empty stomach. sacubitriL- 2019-08- No .5{tbl} Q.5D Take 0.[address] valsartan 10-09 tablets by Vinay es - (Entresto) 00:00: 00:00 mouth 2 Med ical 24-26 mg 00 :00 (two) Center Tab times daily for 30 days. albuterol 2019-08- No .63mg Take [address] [facility] (ACCUNEB) 10-09 (0.63 mg Lukes - 0.63 mg/3 00:00: 23:59 total) by Me dical mL 00 :00 nebulizati Center nebulizer on every 6 solution (six) hours as needed for Wheezing for up to 30 days. apixaban 2019-08- No 5mg Q.5D Take [address] [facility] (ELIQUIS) 5 10-09 tablet (5 Ashley kes - mg Tab 00:00: 23:59 mg total) Medic al tablet 00 :00 by mouth 2 Center (two) times daily for 30 days. arformotero 2019-08- No 15ug Q.5D Take [address] L (BROVANA) 10-09-20 (15 mcg Luke s - 15 mcg/2 mL 00:00: 23:59 total) by Medical nebulizer 00 :00 nebulizati Cent er solution on 2 (two) times daily for 30 days. clopidogrel 2019-08 No 75mg QD Take [address] [facility] (PLAVIX) 75 2-10 12-10 by mouth Vinay es - mg tablet 22:00: 00:00 daily. Medic al 22 :00 Center Trelegy 2019-08 Yes 1{puff} QD Inhale [address] Ellipta 2-03 puff by Lukes - 100-62.5-25 00:00: mouth via M edical mcg DsDv 00 inhaler Center daily . Nexium Nexium Yes Frank 1 capsule [facility] Immunizations Ordered Filled Immunization Date Status Comments [facility] e Immunization Name Name FluAD FluAD 2019-04-29 Completed [facility] - 00:00:00 [facility] Outpatient Clinics Vital Signs Vital Name Observation Time Observation Value Comments Source Respiratory rate 2020-08-16 14:14:00 20 /min [facility] Body height 2020-08-16 14:14:00 170.2 cm [facility] Body weight 2020-08-16 14:14:00 43.999 kg [facility] BMI 2020-08-16 14:14:00 15.19 kg/m2 [facility] Oxygen saturation in 2020-08-16 14:14:00 96 /min on 2L [place] [facility] - Arterial blood by Medical Ce nter Pulse oximetry Heart rate 2020-08-08 09:27:00 61 /min [facility] Systolic blood 2020-08-08 07:54:00 101 mm[Hg] [facility] Diastolic blood 2020-08-08 07:54:00 55 mm[Hg] [facility] Body temperature 2020-08-08 07:54:00 35.72 Tabatha [facility] Procedures Procedure Date / Time Performing Clinician Source Performed ECG 12-LEAD 2020-08-08 07:21:06 Pedro Wallace [facility] BASIC METABOLIC PANEL (7) 2020-08-08 04:21[facility] 2020-08-08 04:21:00 Weston [facility] PHOSPHORUS 2020-08-08 04:21:00 [facility] W/PLT COUNT & AUTO 2020-08-08 04:21:00 Sonny Ontiveros [facility] MAGNESIUM 2020-08-08 04:21:00 Weston [facility] ECG 12-LEAD 2020-08-07 06:36:48 [facility] BASIC METABOLIC PANEL (7) 2020-08-07 05:32:00 [facility], [facility]ON[facility]ED 2020-08-07 05:32:00 Weston [facility] MAGNESIUM 2020-08-07 05:32:00 Weston [facility] CBC W/PLT COUNT & AUTO 2020-08-07 05:32:00 Sonny Ontiveros [facility] PHOSPHORUS 2020-08-07 05:32:00 [facility] 12-LEAD 2020-08-06 06:14:33 [facility] BASIC METABOLIC PANEL (7) 2020-08-06 04:57:00 [facility], [facility]ED 2020-08-06 04:57:00 Weston [facility] PHOSPHORUS 2020-08-06 04:57:00 Weston [facility] CBC W/PLT COUNT & AUTO 2020-08-06 04:57:00 Sonny Ontiveros [facility] MAGNESIUM 2020-08-06 04:57:00 Weston [facility] HC ARTERIAL(ELIA W 2020-08-05 16:00:00 Goyo [facility] - DOPPLER)ONLY Medical Center HC ARTERIAL DOPPLER LEG 2020-08-05 15:30:[address] [facility] UNI [facility] NM PARATHYROID SCAN WITH 2020-08-05 14:48:00 [facility] [place] SARS-COV2/RT-PCR ([facility] & 2020-08-05 05:49:00 Ildefonso Richards [facility] - REF LABS) Medical [place] TROPONIN I 2020-08-05 05:49:00 Dick Glover [facility] ECG 12-LEAD 2020-08-05 02:27:49 Unknown, [facility] ECG 12-LEAD 2020-08-05 02:27:01 Unknown, Hl7 [facility] XR CHEST 1 VIEW 2020-08-05 02:00:00 Dick Glover [facility] PORTABLE/BEDSIDE Medical Center BASIC METABOLIC PANEL (7) 2020-08-05 01:51:[address] [facility] CALCIUM, IONIZED 2020-08-05 01:51:00 Weston [facility] PHOSPHORUS 2020-08-05 01:51:00 Weston [facility] CBC W/PLT COUNT & AUTO 2020-08-05 01:51:00 Sonny Ontiveros [facility] MAGNESIUM 2020-08-05 01:51:00 [facility] TROPONIN I 2020-08-05 01:51:00 Dick Glover [facility] ECG 12-LEAD 2020-08-04 06:10:24 Pedro Wallace [facility] BASIC METABOLIC PANEL (7) 2020-08-04 04:37:[address] [facility] CALCIUM, IONIZED 2020-08-04 04:37:00 Sonny Ontiveros [facility] PHOSPHORUS 2020-08-04 04:37:00 Weston [facility] CBC W/PLT COUNT & AUTO 2020-08-04 04:37:00 Sonny Ontiveros [facility] MAGNESIUM 2020-08-04 04:37:00 Weston [facility] C. DIFFICILE GDH TOXIN 2020-08-03 15:43:00 Sonny Ontiveros [facility] ECG 12-LEAD 2020-08-03 06:20:50 Pedro Wallace [facility] BASIC METABOLIC PANEL (7) 2020-08-03 04:39:[address] [facility] CALCIUM, IONIZED 2020-08-03 04:39:00 [facility] 2020-08-03 04:39:00 [facility] CBC W/PLT COUNT & AUTO 2020-08-03 04:39:00 Sonny Ontiveros [facility] MAGNESIUM 2020-08-03 04:39:00 [facility] L CATH & PCI 2020-08-02 10:28:00 Trey Ramos [facility] CBC (HEMOGRAM ONLY) 2020-08-02 04:20:00 [facility] BASIC METABOLIC PANEL (7) 2020-08-02 04:20:00 [facility] PHOSPHORUS 2020-08-02 04:20:00 [facility] MAGNESIUM 2020-08-02 04:20:00 [facility] PTH, INTACT 2020-08-02 04:20:00 [facility] CALCIUM, IONIZED 2020-08-02 04:20:00 [facility] 12-LEAD 2020-08-01 15:47:39 Elie Brewer [facility] TRANSESOPHAGEAL ECHO 2020-08-01 14:51:[address] [facility] CARDIOVERSION 2020-08-01 10:56:[address] [facility] CBC (HEMOGRAM ONLY) 2020-08-01 05:32:00 [facility] BASIC METABOLIC PANEL (7) 2020-08-01 05:32:00 [facility] PHOSPHORUS 2020-08-01 05:32:00 [facility] MAGNESIUM 2020-08-01 05:32:00 [facility] CALCIUM, IONIZED 2020-08-01 05:32:00 [facility] CBC (HEMOGRAM ONLY) 2020-07-31 05:42:00 [facility] BASIC METABOLIC PANEL (7) 2020-07-31 05:42:00 [facility] PHOSPHORUS 2020-07-31 05:42:00 [facility] MAGNESIUM 2020-07-31 05:42:00 [facility] CALCIUM, IONIZED 2020-07-31 05:42:00 [facility] (HEMOGRAM ONLY) 2020-07-30 04:28:00 [facility] BASIC METABOLIC PANEL (7) 2020-07-30 04:28:00 [facility] PHOSPHORUS 2020-07-30 04:28:00 [facility] MAGNESIUM 2020-07-30 04:28:00 [facility] CALCIUM, [facility]ON[facility]ED 2020-07-30 04:28:[address] [facility] IV 2020-07-29 22:05:00 Sonny Ontiveros [facility] CONTRAST [facility] IRON, TIBC, % SAT. 2020-07-29 18:05:00 Sonny Ontiveros [facility] (WITHOUT FERRITIN) [facility] 2D ECHO W/ DOPPLER 2020-07-29 08:48:27 [facility] ([facility] TSH/FREE T4 IF INDICATED 2020-07-29 04:20:00 [facility] HEMO[facility] A1C 2020-07-29 04:20:00 [facility] LIP[facility] PANEL 2020-07-29 04:20:00 Ildefonso Richards [facility] CBC (HEMOGRAM ONLY) 2020-07-29 04:20:00 [facility] BASIC METABOLIC PANEL (7) 2020-07-29 04:20:00 [facility] PHOSPHORUS 2020-07-29 04:20:00 [facility] MAGNESIUM 2020-07-29 04:20:00 [facility] PROCALCITONIN 2020-07-29 04:20:00 [facility] VITAMIN B12 AND FOLATE 2020-07-29 04:20:00 Ildefonso Richards [facility] T4, FREE 2020-07-29 04:20:00 Ildefonso Richards [facility] BLOOD CULTURE 2020-07-28 21:16:00 Ildefonso Richards [facility] BLOOD CULTURE 2020-07-28 21:15:[address] [facility] ECG 12-LEAD 2020-07-28 20:54:[address] [facility] SARS-COV2/RT-PCR ([facility] & 2020-07-28 20:36:[address] [facility] - REF LABS) [facility] Center CBC W/PLT COUNT & AUTO 2020-07-28 20:33:00 Ildef[address] Richards [facility] - DIFFERENTIAL Medical Center COMPREHENSIVE METABOLIC 2020-07-28 20:33:[address] [facility] - PANEL [facility] Center B-TYPE NATRIURETIC FACTOR 2020-07-28 20:33:[address] [facility] St kes - (BNP) Medical Center MAGNESIUM 2020-07-28 20:33:[address] [facility] XR CHEST 1 VIEW 2020-07-28 19:50:[address] [facility] St [facility] - PORTABLE/BEDSIDE [facility] VASCULAR DIAGRAM -SCAN 2020-07-28 00:00:00 Provider, Default [facility] Sc[facility] CARDIAC CATH REPORT - SCAN 2020-07-28 00:00:00 Provider, Default [facility] Plan of Care Planned Activity Planned Date Details Comments Source Future Scheduled 2020-08-[address] [facility] - Test 00:00:00 (12+) [code = Medical Center DEPRESSION SCREENING (12+)] Future Scheduled 2020-04-19 INFLUENZA VACCINE (#1) [facility] - Test 00:00:00 [code = INFLUENZA Medical Ce nter VACCINE (#1)] Future Scheduled 2015-07-[address] [facility] - Test 00:00:00 WELLNESS (YEAR 2 or Medical Center FIRST YEAR if no IPPE) [code = MEDICARE ANNUAL WELLNESS (YEAR 2 or FIRST YEAR if no IPPE)] Future Scheduled 2014 PNEUMOCOCCAL 65+ YRS [facility] - Test 00:00:00 (1 of 1 - Medical Center [id number]) [code = PNEUMOCOCCAL 65+ YRS (1 of 1 - [id number])] Future Scheduled 1967 HEPATITIS C [facility]CREENING [facility] - Test 00:00:00 [code = HEPATITIS C Medical Center SCREENING] Future Scheduled 1956 DTAP/TDAP/TD VACCINES [facility] - Test 00:00:00 (1 - Tdap) [code = Medical C enter DTAP/TDAP/TD VACCINES (1 - Tdap)] Future Scheduled [address] [facility] Vinay es - Test 00:00:00 malignant neoplasm of Medica l Center colon (procedure) [code = 410786374] Encounters Start End Encounter Admission Attending Care Care Encounter Source Date/Time Date/Time Type Type Clinicians Facility Department ID 2020-09-21 2020-09-21 Out[facility] [id number] [facility] 2020-09-19 2020-09-19 [facility] [id number] [facility] 2020-09-16 2020-09-16 [facility] [id number] [facility] 2020-09-08 2020-09-08 [facility] [id number] [facility] 2020-09-08 2020-09-08 [facility] [id number] [facility] 2020-09-06 2020-09-06 [facility] [id number] [facility] 2020-09-06 2020-09-06 [facility] [id number] [facility] 2020-08-23 2020-08-23 Outpatient [facility] [id number] [facility] 2020-07-31 2020-07-31 [facility] [id number] [facility] 2020-05-27 2020-05-27 [facility] [id number] 2020-05-25 2020-05-25 [facility] [id number] [facility] 2020-05-25 2020[facility]05-25 [facility] [id number] [facility] 2020-05-18 2020-05-18 [facility] [id number] [facility] 2020-04-26 2020-04-26 [facility] [id number] 09:52:00 09:52:00 t [email or web address] [email or web address] s - Drive [facility] Medicine l Medicine Outpati ent Clinics 2020-02-23 2020-02-23 [facility] [id number] 14:30:00 14:30:00 t [place] s - Drive [facility] Medicine l Medicine Outpati ent Clinics 2019-12-30 2019-12-30 [facility] [id number] 10:40:00 10:40:00 t [facility] Medicine l Medicine Outpati ent Clinics 2019-12-24 2019-12-24 [facility] [id number] 16:41:00 16:41:00 t [employer] [email or web address] s - Drive [facility] Medicine l Medicine Outpati ent Clinics 2019-11-23 2019-11-23 [facility] [id number] 14:00:00 14:00:00 t [email or web address] [email or web address] s - Drive [facility] Medicine l Medicine Outpati ent Clinics 2019-11-05 2019-11-05 [facility] [id number] 14:59:00 14:59:00 t [email or web address] [email or web address] s - Drive [facility] Medicine l Medicine Outpati ent Clinics 2019-10-12 2019-10-12 Outpatient [facility] [id number] 11:27:00 11:27:00 t Tye Tye [employer] s - Drive [facility] Medicine l Medicine Outpati ent Clinics 2019-10-02 2019-10-02 [facility] [id number] 09:03:00 09:03:00 t Tye Tye [employer] [facility] [employer] s - Drive [facility] Medicine l Medicine Outpati ent Clinics 2019-09-28 2019-09-28 [facility] [id number] 13:16:00 13:16:00 t Tye Tye [employer] [facility] s - Drive [facility] Medicine l Medicine Outpati ent Clinics 2019-08-31 2019-08-31 [facility] [id number] 14:00:00 14:00:00 t Tye Tye [employer] s - Drive [facility] Medicine l Medicine Outpati ent Clinics 2019-08-24 2019-08-24 [facility] [id number] 11:45:00 11:45:00 t Tye Tye [employer] s - Drive [facility] Medicine l Medicine Outpati ent Clinics 2019 2019 [facility] [id number] 11:00:00 11:00:00 t Tye [email or web address] s - Drive [facility] Medicine l Medicine Outpati ent Clinics 2019-07-06 2019-07-06 [facility] [id number] 13:59:00 13:59:00 t Tye Tye [employer] s - Drive [facility] Medicine l Medicine Outpati ent Clinics 2019-06-04 2019-06-04 [facility] [id number] 14:23:00 14:23:00 t Tye Tye [employer] s - Drive [facility] Medicine l Medicine Outpati ent Clinics 2019-05-18 2019-05-18 [facility] [id number] 09:47:00 09:47:00 t Tye Tye [employer] s - Drive [facility] Medicine l Medicine Outpati ent Clinics 2019-05-04 2019-05-04 [facility] [id number] 13:52:00 13:52:00 t Tye Tye [employer] s [facility] Medicine Medicine Outpati ent Clinics 2019-04-29 2019-04-29 [facility] [id number] 14:30:00 14:30:[address] [facility] s - Drive [facility] l Medicine Outpati ent Clinics 2019-04-27 2019-04-27 [facility] [id number] 10:20:00 10:20:[address] [facility] s - Drive [facility] Medicine Outpati ent Clinics 2019-02-06 2019-02-06 [facility] [id number] 08:31:00 08:31:00 t Tye Tye [employer] Luke s - Drive [facility] Medicine Outpati ent Clinics 2019-01-02 2019-01-02 [facility] [id number] 11:08:00 11:08:00 t Tye Tye [employer] Luke s - Drive [facility] Medicine Outpati ent Clinics 2018-12-23 2018-12-23 [facility] [id number] 15:00:00 15:00:00 t Tye Tye [employer] Luke s - Drive [facility] Medicine Medicine Outpati ent Clinics 2018-12-08 2018-12-08 [facility] [id number] 13:58:00 13:58:00 t Tye Tye [employer] Luke s - Drive [facility] Medicine Outpati ent Clinics 2018-12-04 2018-12-04 [facility] [id number] 11:57:00 11:57:00 t Tye Tye [employer] Luke s - Drive [facility] Medicine Outpati ent Clinics 2018-12-01 2018-12-01 [facility] [id number] 14:49:00 14:49:[address] Luke s - Drive [facility] Medicine Outpati ent Clinics 2018-10-30 2018-10-30 [facility] [id number] [address] 11:15:00 11:15:[address] Luke s - Drive [facility] Medicine Outpati ent Clinics 2018-10-28 2018-10-28 [facility] [id number] 16:53:00 16:53:00 [facility] 2018-10-24 2018-10-24 [facility] [id number] 16:00:00 16:00:00 t Tye Tye [employer] [facility] ent Clinics 2018-09-17 2018-09-17 [facility] [id number] 13:45:00 13:45:00 [facility] 2018-03-18 2018-03-18 [facility] [id number] 10:15:00 10:15:00 [facility] Results Test Description Test Time Test Comments Results Result Sourc e Comments VASCULAR DIAGRAM [facility]dered by an [facility] -[facility]AN 4 unspecified provider. Vinay bowden - 11:08:36 [facility] CARDIAC CATH 2020-07-20 Ordered [address] an [facility] REPORT - SCAN 8 unspecified provider. Rafy - 13:55:24 [facility] ECG 12 lead 2020-07-20 Interface, External Ris [facility] 1 In - 08/08/2020 7:32 Vinay - 07:32:06 AM CSTVentricular Rate Me dical 53 BPMAtrial Rate 53 Cent er BPMP-R Interval 132 msQRS Duration 94 msQ-T Interval 492 msQTC Calculation(Bazett) 461 msP Reader 77 degreesR Reader 84 degreesT Reader 257 degreesSinus bradycardia with Premature atrial complexesProbable LVH with strain pattern.Abnormal ECGWhen compared with ECG of 07 Aug 2020.QT has shortenedConfirmed by Mikala ENCISO, AMINATA ([id number]) on 08/08/2020 7:31:59 AM Basic Metabolic Panel 2020-08-08 05:43:00 Test Item Value Reference Range Interpretation Comme nts Sodium (test code = 146 meq/L 136-145 H 2951-2) Potassium (test code = 4.0 meq/L 3.5-5.1 3-3) Chloride (test code = 96 meq/L 98-107 L 2074-0) CO2 (test code = 2027-9) 43 meq/L 22-29 HH BUN (test code = 3094-0) 23 mg/dL 7-21 H Creatinine (test code = 0.70 mg/dL 0.57-1.25 2160-0) Glucose (test code = 108 mg/dL 70-105 H 2345-7) Calcium (test code = 8.3 mg/dL 8.4-10.2 L 14818-5) EGFR (test code = 111 mL/min/1.73 [place] 47657-7) ACCURATE CREATININE KANG CHIP IN PREDICTING GLOMERULAR FILT RATION RATE. ESTIMATED GFR IS NOT APPLICAB LE FOR DIALYSIS PATIEN TS. JERONIMO (test code = JERONIMO) Picker/Puller ID - CHARLENE M Lab Interpretation (test Abnormal code = 71524-2) [facility] [id number] 05:43:00 Test Item Value Reference Range Interpretation Comments SODIUM (BEAKER) 146 meq/L 136-145 H (test code = 381) POTASSIUM (BEAKER) 4.0 meq/L 3.5-5.1 (test code = 379) CHLORIDE (BEAKER) 96 meq/L 98-107 L (test code = 382) CO2 (BEAKER) (test 43 meq/L 22-29 HH code = 355) BLOOD UREA NITROGEN 23 mg/dL 7-21 H (BEAKER) (test code = 354) CREATININE (BEAKER) 0.70 mg/dL 0.57-1.25 (test code = 358) GLUCOSE RANDOM 108 mg/dL 70-105 H (BEAKER) (test code = 652) CALCIUM (BEAKER) 8.3 mg/dL 8.4-10.2 L (test code = 697) EGFR (BEAKER) (test 111 mL/min/1.73 ESTIM ATED GFR IS code = 1092) sq m NOT ACCURATE CREATININE CLEARANCE IN PREDICTING GLOMERULAR FILTRATION RATE . ESTIMATED GFR I S NOT APPLICABLE FOR DIALYSIS PATIEN TS. Picker/Puller ID - CHARLENE [id number] 05:28:00 Test Item Value Reference Range Interpretation Comments Magnesium (test code = 1.8 mg/dL 1.6-2.6 98243-7) JERONIMO (test code = JERONIMO) Picker/Puller ID - CHARLENE M Lab Interpretation (test Normal code = 84623-7) [facility]2020-12-21 05:28:00 Test Item Value Reference Range Interpretation Comments Phosphorus (test code = 3.1 mg/dL 2.3-4.7 2777-1) JERONIMO (test code = JERONIMO) Picker/Puller ID - CHARLENE M Lab Interpretation (test Normal code = 35292-4) [facility]2020-12-21 05:28:00 Test Item Value Reference Range Interpretation Comments MAGNESIUM (BEAKER) (test code = 1.8 mg/dL 1.6-2.6 627) Picker/Puller ID - CHARLENE [id number] 05:28:00 Test Item Value Reference Range Interpretation Comments PHOSPHORUS (BEAKER) (test code = 3.1 mg/dL 2.3-4.7 604) Picker/Puller ID - CHARLENE MCalcium, [id number] 05:27:00 Test Item Value Reference Range Interpretation Comments Calcium, Ion (test code = 1994-3) 1.07 mmol/L 1.12-1.27 L pH, Blood (test code = 84433-1) 7.32 Lab Interpretation (test code = Abnormal 56477-6) [facility], [id number] 05:27:00 Test Item Value Reference Range Interpretation Comments CALCIUM IONIZED (BEAKER) (test 1.07 mmol/L 1.12-1.27 L code = 698) PH, BLOOD (BEAKER) (test code = 7.32 1810) CBC with platelet count + automated [id number] 05:10:00 Test Item Value Reference Range Interpretation Comments WBC (test code = 6690-2) 8.2 See_Comment [A utomated message] The system [employer] generated this result transmitted ref erence range: 3.5 - 10 .5 K/L. The refe rence range was not u sed to interpret this result as normal/abnor mal. RBC (test code = 789-8) 3.53 See_Comment L [Au tomated message] The system [employer] generated this result transmitted ref erence range: 4.63 - 6 .08 M/L. The refe rence range was not u sed to interpret this result as normal/abnor mal. MCHC (test code = 786-4) 31.3 See_Comment L [A utomated message] The system [employer] generated this result transmitted ref erence range: 32.3 - 3 6.5 GM/DL. The refe rence range was not u sed to interpret this result as normal/abnor mal. Hematocrit (test code = 36.1 % 40.1-51 L 4544-3) MCV (test code = 787-2) 102.3 fL 79-92.2 H MCH (test code = 785-6) 32.0 pg 25.7-32.2 RDW (test code = 788-0) 18.7 % 11.6-14.4 H Platelets (test code = 153 See_Comment [Aut omated message] 777-3) The system [employer] generated this result transmitted ref erence range: 150 - 45 0 K/CU MM. The referen ce range was not u sed to interpret this result as normal/abnor mal. MPV (test code = 10.5 fL 9.4-12.4 35487-7) nRBC (test code = 413) 0 See_Comment [Aut omated message] The system [employer] generated this result transmitted ref erence range: 0 - 0 /1 00 WBC. The refere nce range was not u sed to interpret this result as normal/abnor mal. % Neutros (test code = 79 % 429) % Lymphs (test code = 10 % 430) % Monos (test code = 10 % 431) % Eos (test code = 432) 1 % % Baso (test code = 437) 0 % # Neutros (test code = 6.50 See_Comment H [Aut omated message] 670) The system [employer] generated this result transmitted ref erence range: 1.78 - 5 .38 K/L. The refe rence range was not u sed to interpret this result as normal/abnor mal. # Lymphs (test code = 0.82 See_Comment L [Auto mated message] 414) The system [employer] generated this result transmitted ref erence range: 1.32 - 3 .57 K/L. The refe rence range was not u sed to interpret this result as normal/abnor mal. # Monos (test code = 0.80 See_Comment [Autom ated message] 415) The system [employer] generated this result transmitted ref erence range: 0.30 - 0 .82 K/L. The refe rence range was not u sed to interpret this result as normal/abnor mal. # Eos (test code = 416) 0.04 See_Comment [Au tomated message] The system [employer] generated this result transmitted ref erence range: 0.04 - 0 .54 K/L. The refe rence range was not u sed to interpret this result as normal/abnor mal. # Baso (test code = 417) 0.02 See_Comment [A utomated message] The system [employer] generated this result transmitted ref erence range: 0.01 - 0 .08 K/L. The refe rence range was not u sed to interpret this result as normal/abnor mal. Immature 0 % 0-1 Granulocytes-Relative (test code = 2801) Lab Interpretation (test Abnormal code = 70522-3) [facility] W/PLT COUNT & AUTO [id number] 05:10:00 Test Item Value Reference Range Interpretation Comments WHITE BLOOD CELL COUNT (BEAKER) 8.2 K/ L 3.5-10.5 (test code = 775) RED BLOOD CELL COUNT (BEAKER) 3.53 M/ L 4.63-6.08 L (test code = 761) HEMOGLOBIN (BEAKER) (test code = 11.3 GM/DL 13.7-17.5 L 410) HEMATOCRIT (BEAKER) (test code = 36.1 % 40.1-51.0 L 411) MEAN CORPUSCULAR VOLUME (BEAKER) 102.3 fL 79.0-92.2 H (test code = 753) MEAN CORPUSCULAR HEMOGLOBIN 32.0 pg 25.7-32.2 (BEAKER) (test code = 751) MEAN CORPUSCULAR HEMOGLOBIN CONC 31.3 GM/DL 32.3-36.5 L (BEAKER) (test code = 752) RED CELL DISTRIBUTION WIDTH 18.7 % 11.6-14.4 H (BEAKER) (test code = 412) PLATELET COUNT (BEAKER) (test 153 K/CU MM 150-450 code = 756) MEAN PLATELET VOLUME (BEAKER) 10.5 fL 9.4-12.4 (test code = 754) NUCLEATED RED BLOOD CELLS 0 /100 WBC 0-0 (BEAKER) (test code = 413) NEUTROPHILS RELATIVE PERCENT 79 % (BEAKER) (test code = 429) LYMPHOCYTES RELATIVE PERCENT 10 % (BEAKER) (test code = 430) MONOCYTES RELATIVE PERCENT 10 % (BEAKER) (test code = 431) EOSINOPHILS RELATIVE PERCENT 1 % (BEAKER) (test code = 432) BASOPHILS RELATIVE PERCENT 0 % (BEAKER) (test code = 437) NEUTROPHILS ABSOLUTE COUNT 6.50 K/ L 1.78-5.38 H (BEAKER) (test code = 670) LYMPHOCYTES ABSOLUTE COUNT 0.82 K/ L 1.32-3.57 L (BEAKER) (test code = 414) MONOCYTES ABSOLUTE COUNT (BEAKER) 0.80 K/ L 0.30-0.82 (test code = 415) EOSINOPHILS ABSOLUTE COUNT 0.04 K/ L 0.04-0.54 (BEAKER) (test code = 416) BASOPHILS ABSOLUTE COUNT (BEAKER) 0.02 K/ L 0.01-0.08 (test code = 417) IMMATURE GRANULOCYTES-RELATIVE 0 % 0-1 PERCENT (BEAKER) (test code = 2801) BASIC METABOLIC [id number] 06:33:00 Test Item Value Reference Range Interpretation Comments SODIUM (BEAKER) 145 meq/L 136-145 (test code = 381) POTASSIUM (BEAKER) 4.5 meq/L 3.5-5.1 (test code = 379) CHLORIDE (BEAKER) 97 meq/L 98-107 L (test code = 382) CO2 (BEAKER) (test 42 meq/L 22-29 HH code = 355) BLOOD UREA NITROGEN 22 mg/dL 7-21 H (BEAKER) (test code = 354) CREATININE (BEAKER) 0.75 mg/dL 0.57-1.25 (test code = 358) GLUCOSE RANDOM 122 mg/dL 70-105 H (BEAKER) (test code = 652) CALCIUM (BEAKER) 8.8 mg/dL 8.4-10.2 (test code = 697) EGFR (BEAKER) (test 103 mL/min/1.73 ESTIM ATED GFR IS code = 1092) sq m NOT ACCURATE CREATININE CLEARANCE IN PREDICTING GLOMERULAR FILTRATION RATE . ESTIMATED GFR I S NOT APPLICABLE FOR DIALYSIS PATIEN TS. Picker/Puller ID - DEQUAN [id number] 06:27:00 Test Item Value Reference Range Interpretation Comments MAGNESIUM (BEAKER) (test code = 1.9 mg/dL 1.6-2.6 627) Picker/Puller ID - DEQUAN [id number] 06:27:00 Test Item Value Reference Range Interpretation Comments PHOSPHORUS (BEAKER) (test code = 1.9 mg/dL 2.3-4.7 L 604) Picker/Puller ID - DEQUAN LCALCIUM, [id number] 06:25:00 Test Item Value Reference Range Interpretation Comments CALCIUM IONIZED (BEAKER) (test 1.11 mmol/L 1.12-1.27 L code = 698) PH, BLOOD (BEAKER) (test code = 7.37 1810) CBC W/PLT COUNT & AUTO [id number] 06:02:00 Test Item Value Reference Range Interpretation Comments WHITE BLOOD CELL COUNT (BEAKER) 9.3 K/ L 3.5-10.5 (test code = 775) RED BLOOD CELL COUNT (BEAKER) 3.66 M/ L 4.63-6.08 L (test code = 761) HEMOGLOBIN (BEAKER) (test code = 11.6 GM/DL 13.7-17.5 L 410) HEMATOCRIT (BEAKER) (test code = 36.7 % 40.1-51.0 L 411) MEAN CORPUSCULAR VOLUME (BEAKER) 100.3 fL 79.0-92.2 H (test code = 753) MEAN CORPUSCULAR HEMOGLOBIN 31.7 pg 25.7-32.2 (BEAKER) (test code = 751) MEAN CORPUSCULAR HEMOGLOBIN CONC 31.6 GM/DL 32.3-36.5 L (BEAKER) (test code = 752) RED CELL DISTRIBUTION WIDTH 18.4 % 11.6-14.4 H (BEAKER) (test code = 412) PLATELET COUNT (BEAKER) (test 153 K/CU MM 150-450 code = 756) MEAN PLATELET VOLUME (BEAKER) 10.6 fL 9.4-12.4 (test code = 754) NUCLEATED RED BLOOD CELLS 0 /100 WBC 0-0 (BEAKER) (test code = 413) NEUTROPHILS RELATIVE PERCENT 73 % (BEAKER) (test code = 429) LYMPHOCYTES RELATIVE PERCENT 16 % (BEAKER) (test code = 430) MONOCYTES RELATIVE PERCENT 10 % (BEAKER) (test code = 431) EOSINOPHILS RELATIVE PERCENT 0 % (BEAKER) (test code = 432) BASOPHILS RELATIVE PERCENT 0 % (BEAKER) (test code = 437) NEUTROPHILS ABSOLUTE COUNT 6.80 K/ L 1.78-5.38 H (BEAKER) (test code = 670) LYMPHOCYTES ABSOLUTE COUNT 1.53 K/ L 1.32-3.57 (BEAKER) (test code = 414) MONOCYTES ABSOLUTE COUNT (BEAKER) 0.92 K/ L 0.30-0.82 H (test code = 415) EOSINOPHILS ABSOLUTE COUNT 0.03 K/ L 0.04-0.54 L (BEAKER) (test code = 416) BASOPHILS ABSOLUTE COUNT (BEAKER) 0.02 K/ L 0.01-0.08 (test code = 417) IMMATURE GRANULOCYTES-RELATIVE 0 % 0-1 PERCENT (BEAKER) (test code = 2801) ELIA's Only(Ankle/Brachial Index)2020-08-06 09:42:35Ejection FractionSST. [facility] ECHO [facility] MKCKESSON CPACSRight Impression1. The posterior tibial and dorsalis pedis arteries are patent withbi/monophasic Doppler waveforms.2. The PT pressure is 96 mmHg with an ELIA of 0.95 and the DP pressure is 98mmHg with an LEIA of 0.97, within normal range.3. The great toe pressure could not be obtained due to absent flow by PPGwaveforms.4. The first, second and fourth digits have absent flow by PPG waveforms.5. The third and fifth digits have minimal flow by PPG waveforms. Conclusions Summary Arterial pressures and Doppler waveforms were performed on the right lower extremity only. Adequate Doppler waveforms were obtained. Doppler waveforms were bi/monophasic. Theright ABIs were within normal range. The toe pressure and TBI were were not obtained due to absent flow by PPG waveforms. The third and fifth digits had minimal flow by PPG waveforms. The first, second, and fourth digits had absent flow by PPG waveforms. Signature Electronically signed by Etta Cortés MD(Interpreting physician) 08/06/2020 09:42 AM Velocities are measured in cm/s ; Diameters are measured in cm Interface, External Ris In - 08/06/2020 9:42 AM CSTPV LAB - Lower Extremity Arterial Procedure Demographics Patient Name IMELDA VALENCIA Date ofStudy 08/05/2020 GENE Age 70 Visit Number [id number] Gender Male Accession Number [id number] Date of 1950 Referring Goyo Nieves Room Number [id number] Physician Supervisor [employer] Fifi Farrell, Interpreting Etta Cortés T Physician ProcedureType of Study: Extremities Arteries: Lower Extremity Arterial Procedure, PV,ARTERIAL ABIL UNILATERAL. Indications for Study:Diminished pulses .Patient Status:Routine.Study Location:Vascular Lab.Technical Quality:Adequate visualization.Risk FactorsHistory of Disease+ +----+ --+!Diagnosis !Date!Comments !+ +----+ +!History/Risk ! !Right carotid endartectomy, AFIB, CAD, COPD, HTN, !!Factors: ! !HLD, Left BKA, stroke, current smoker !+-------- --------+----+ +[facility]ressioni [facility] [place] Impression1. Theposterior tibial and dorsalis pedis arteries are patent withbi/monophasic Doppler waveforms.2. The PT pressure is 96 mmHg with an ELIA of 0.95 and the DP pressure is 98mmHg with an ELIA of 0.97, within normal range.3. The great toe pressure could not be obtained due to absent flow by PPGwaveforms.4. Thefirst, second and fourth digits have absent flow by PPG waveforms.5. The third and fifth digits haveminimal flow by PPG waveforms. Conclusions Summary Arterial pressures and Doppler waveforms were performed on the right lower extremity only. Adequate Doppler waveforms were obtained. Doppler waveforms were bi/monophasic. The right ABIs were within normal range. The toe pressure and TBI were were not obtained due to absent flow by PPG waveforms. The third and fifth digits had minimal flow by PPG waveforms. The first, second, and fourth digits had absent flow by PPG waveforms. Signature Velocities are measured in cm/s ; Diameters are measured in [facility] Arterial doppler leg, [id number] 09:42:15Ejection FractionSLEH ECHO HEARTLAB MKCKESSON [facility]PASt. [facility] Impression1. The common femoral, femoral, po pliteal, posterior tibial, peroneal andanterior tibial arteries are patent with biphasic Doppler waveforms withcalcified plaque throughout.2. The profunda femoral artery is patent with monophasic Doppler waveformswith calcified plaque throughout. Conclusions Summary Arterial pressures and Doppler analysis were performed on the right lower extremity. Adequate Doppler waveforms were obtained. All vessels were open with bi/monophasic Doppler waveforms with calcified plaque throughout. Signature --- Velocities are measured in cm/s ; Diameters are measured in cm LE Duplex Measurements Right Left + + + + + + + + + + !Location ! !PSV !EDV !Waveform ! !PSV !EDV !Waveform ! + + + + + + + + + + !Mid Common Femoral ! !110 ! ! ! + --------+ + + + + !Prox PFA ! !94.9 ! ! ! + + + + + + !Prox SFA ! !105 ! ! ! + + + + + + !Mid SFA ! !90.9 ! ! ! + + + + + + !Dist SFA ! !46.2 ! ! ! + + + + + + !Prox Popliteal ! !43.7 ! ! ! + + +-- + + + !Dist Popliteal ! !44.2 ! ! ! + + + + + + !Prox SET PAINTER ! !57.5 ! ! ! + + + + + + !Mid SET PAINTER ! !55.5 ! ! ! + + + + + + !Dist SET PAINTER ! !61.4 ! ! ! + + + + + + !Prox RACHANA ! !39.9 ! ! ! + + + + + + !Mid RACHANA ! !31.5 ! ! ! + + + + + + !Dist RACHANA ! !20.3 ! ! ! + + + + + + !Prox Peroneal ! !33.3 ! ! ! + + + + + + !Mid Peroneal ! !23.5 ! ! ! + + + + + + !Dist Peroneal ! !13.7 ! ! ! + + + + + + Interface, External Ris In - 08/06/2020 9:42 AM CSTPV LAB - Lower Extremity Arterial Duplex Demographics Patient Name IMELDA VALENCIA Date of Study GENE Age 70 Visit Number [id number] Gender Male Accession Number [id number] Date ofBirth 1950 Referring Goyo Nieves Room Number [id number] Physician Supervisor [employer] Fifi Farrell, Interpreting Etta Cortés T Physician ProcedureType of Study: Extremities Arteries: Lower Extremities Arterial Duplex, ARTERIAL DOPPLER LEG, RIGHT. Indications for Study:Decreased pulses .Patient Status:Routine.Study Location:Vascular Lab.Technical Quality:Adequate visualization.Risk FactorsHistory of Disease+ +----+ +!Diag nosis !Date!Comments !+ +----+ +!History/Risk ! !Right carotid endartectomy, AFIB, CAD, COPD, HTN, !!Factors: ! !HLD, Left BKA, stroke, current smoker !+ +----+-- +ImpressionsRight Impression1. The common femoral,femoral, popliteal, posterior tibial, peroneal andanterior tibial arteries are patent with biphasic Doppler waveforms withcalcified plaque throughout.2. The profunda femoral artery is patent with monophasic Doppler waveformswith calcified plaque throughout. Conclusions Summary Arterial pressures andDoppler analysis were performed on the right lower extremity. Adequate Doppler waveforms were obtained. All vessels were open with bi/monophasic Doppler waveforms with calcified plaque throughout. Signature Velocities are measured in cm/s ; Diameters are measured in cmLE Duplex Measurements Right Left + --------+ + + + + + + + + !Location ! !PSV !EDV !Waveform ! !PSV !EDV !Waveform ! + + +--- + + + + + + + !Mid Common Femoral ! !110 ! ! ! + + + + + + !Prox PFA ! !94.9 ! ! ! + + + + + + !Prox SFA ! !105 ! ! ! + + + + + + !Mid SFA ! !90.9 !! ! + + + + + + !Dist SFA ! !46.2 ! ! ! + + + + + + !Prox Popliteal ! !43.7 ! ! ! + + + + + + !Dist Popliteal ! !44.2 ! ! ! +- + + + + + !Prox SET PAINTER ! !57.5 ! ! ! + + + + + + !Mid SET PAINTER ! !55.5 ! ! ! + + + + + + !Dist SET PAINTER ! !61.4 ! ! ! + + + + + + !Prox RACHANA ! !39.9 ! ! ! + + +------- + + + !Mid RACHANA ! !31.5 ! ! ! + + + + + + !Dist RACHANA ! !20.3 ! ! ! + + + + + + !Prox Peroneal ! !33.3 ! ! ! + + + + + + !Mid Peroneal ! !23.5 ! ! ! + + + + + + !Dist Peroneal ! !13.7 ! ! ! + + + + + +[facility] W/PLT COUNT & AUTO [id number] 06:00:00 Test Item Value Reference Range Interpretation Comments WHITE BLOOD CELL COUNT (BEAKER) 10.0 K/ L 3.5-10.5 (test code = 775) RED BLOOD CELL COUNT (BEAKER) 3.89 M/ L 4.63-6.08 L (test code = 761) HEMOGLOBIN (BEAKER) (test code = 12.3 GM/DL 13.7-17.5 L 410) HEMATOCRIT (BEAKER) (test code = 39.1 % 40.1-51.0 L 411) MEAN CORPUSCULAR VOLUME (BEAKER) 100.5 fL 79.0-92.2 H (test code = 753) MEAN CORPUSCULAR HEMOGLOBIN 31.6 pg 25.7-32.2 (BEAKER) (test code = 751) MEAN CORPUSCULAR HEMOGLOBIN CONC 31.5 GM/DL 32.3-36.5 L (BEAKER) (test code = 752) RED CELL DISTRIBUTION WIDTH 18.3 % 11.6-14.4 H (BEAKER) (test code = 412) PLATELET COUNT (BEAKER) (test 155 K/CU MM 150-450 code = 756) MEAN PLATELET VOLUME (BEAKER) 10.2 fL 9.4-12.4 (test code = 754) NUCLEATED RED BLOOD CELLS 0 /100 WBC 0-0 (BEAKER) (test code = 413) NEUTROPHILS RELATIVE PERCENT 83 % (BEAKER) (test code = 429) LYMPHOCYTES RELATIVE PERCENT 8 % (BEAKER) (test code = 430) MONOCYTES RELATIVE PERCENT 7 % (BEAKER) (test code = 431) EOSINOPHILS RELATIVE PERCENT 0 % (BEAKER) (test code = 432) BASOPHILS RELATIVE PERCENT 0 % (BEAKER) (test code = 437) NEUTROPHILS ABSOLUTE COUNT 8.29 K/ L 1.78-5.38 H (BEAKER) (test code = 670) LYMPHOCYTES ABSOLUTE COUNT 0.84 K/ L 1.32-3.57 L (BEAKER) (test code = 414) MONOCYTES ABSOLUTE COUNT (BEAKER) 0.73 K/ L 0.30-0.82 (test code = 415) EOSINOPHILS ABSOLUTE COUNT 0.01 K/ L 0.04-0.54 L (BEAKER) (test code = 416) BASOPHILS ABSOLUTE COUNT (BEAKER) 0.03 K/ L 0.01-0.08 (test code = 417) IMMATURE GRANULOCYTES-RELATIVE 1 % 0-1 PERCENT (BEAKER) (test code = 2801) BASIC METABOLIC [id number] 05:50:00 Test Item Value Reference Range Interpretation Comments SODIUM (BEAKER) 145 meq/L 136-145 (test code = 381) POTASSIUM (BEAKER) 3.4 meq/L 3.5-5.1 L (test code = 379) CHLORIDE (BEAKER) 96 meq/L 98-107 L (test code = 382) CO2 (BEAKER) (test 42 meq/L 22-29 HH code = 355) BLOOD UREA NITROGEN 20 mg/dL 7-21 (BEAKER) (test code = 354) CREATININE (BEAKER) 0.71 mg/dL 0.57-1.25 (test code = 358) GLUCOSE RANDOM 125 mg/dL 70-105 H (BEAKER) (test code = 652) CALCIUM (BEAKER) 9.0 mg/dL 8.4-10.2 (test code = 697) EGFR (BEAKER) (test 109 mL/min/1.73 ESTIM ATED GFR IS code = 1092) sq m NOT ACCURATE CREATININE CLEARANCE IN PREDICTING GLOMERULAR FILTRATION RATE . ESTIMATED GFR I S NOT APPLICABLE FOR DIALYSIS PATIEN TS. Picker/Puller ID - VERONICA [id number] 05:48:00 Test Item Value Reference Range Interpretation Comments MAGNESIUM (BEAKER) (test code = 1.9 mg/dL 1.6-2.6 627) Picker/Puller ID Juwan MARTIN [id number] 05:48:00 Test Item Value Reference Range Interpretation Comments PHOSPHORUS (BEAKER) (test code = 1.7 mg/dL 2.3-4.7 L 604) Picker/Puller ID Juwan MARTIN WCALCIUM, [id number] 05:21:00 Test Item Value Reference Range Interpretation Comments CALCIUM IONIZED (BEAKER) (test 1.15 mmol/L 1.12-1.27 code = 698) PH, BLOOD (BEAKER) (test code = 7.38 1810) SARS-CoV2/RT-PCR (Asymptomatic ONLY)2020-08-05 22:48:00 Test Item Value Reference Range Interpretation Comments SARS-COV2/RT-PCR Negative Not Detected, (test code = Negative, See 44912-3) external report for linked test SARS-COV-2 [facility] PERFORMING LAB (test code = 47007-3) JERONIMO (test code = Negative result for this JERONIMO) test determines that SARS-CoV-2 RNA was not present in the specimen above the Limit of Detection (LOD). However, Negative results do not preclude SARS-CoV-2 infection and should not be used as the sole basis for treatment or patient management decisions. Negative results must be combined with clinical observations, patient history, and epidemiological information. A false negative result may occur if a specimen is improperly collected, transported or handled. A false negative result should be considered if patient's recent exposures or clinical presentation indicate that COVID-19 (SARS-CoV-2) is likely and diagnostic tests for other causes of illness are negative. Re-testing should be considered in cases of suspected false negatives. The limit of detection for this assay is 100 copies/mL. This SARS CoV-2 test is a real-time RT-PCR test intended for the qualitative detection of nucleic acid from SARS-CoV-2 in a nasopharyngeal swab specimen collected from individuals suspected of COVID-19 by their healthcare provider. This test has not been Food and Drug Administration (FDA) cleared or approved. This is a modified version of an approved Emergency Use Authorization (EUA) and is in the process of review by the FDA. Once authorized by the FDA, the issued EUA will be effective until the declaration that circumstances exist justifying the authorization of the emergency use of in vitro diagnostic tests for detection and/or diagnosis of COVID-19 is terminated under Section 564(b)(2) of the Act or the EUA is revoked under Section 564(g) of the Act. Testing was performed using the [employer] SARS-CoV-2 assay. Fact Sheet for Healthcare Providers:https://www.Raise5/cali/RT_SA UP-JtI-1_MEC_Gqvg_Dqfng_ 51-039310.pdf Fact Sheet for Healthcare Patients:https://www.Skubana/cali/RT_SAR V-OpY-3_Ooednxv_Bihb_Uhv et_EN_51-023412G9.pdf Performing Laboratory:[facility], [place] [id number] [place], [place] [address]ARS-COV2/RT-PCR ([facility])2020-08-05 22:48:00 Test Item Value Reference Range Interpretation Comments SARS-COV2/RT-PCR (test Negative Not Detected, Negative, code = 4775608) See external report for linked test SARS-COV-2 PERFORMING LAB [facility] (test code = 3756901) Negative result for this test determines that SARS-CoV-2 RNA was not present in the specimen above the Limit of Detection (LOD). However, Negative results do not preclude SARS-CoV-2 infection and should not be used as the sole basis for treatment or patient management decisions. Negative results mustbe combined with clinical observations, patient history, and epidemiological information. A false negative result may occur if a specimen is improperly collected, transported or handled. A false negative result should be considered if patient's recent exposures or clinical presentation indicate that COVID-19 (SARS-CoV-2) is likely and diagnostic tests for other causes of illness are negative. Re-testing should be considered in cases of suspected false negatives.The limit of detection for this assay is 100 copies/mL.This SARS CoV-2 test is a real-time RT-PCR test intended for the qualitative detection of nucleic acid from SARS-CoV-2 in a nasopharyngeal swab specimen collected from individuals susp ected of COVID-19 by their healthcare provider.This test has not been Food and Drug Administration (FDA) cleared or approved. This is a modified version of an approved Emergency Use Authorization (EUA) and is in the process of review by the FDA. Once authorized by the FDA, the issued EUA will be effective until the declaration that circumstances exist justifying the authorization of the emergency use of in vitro diagnostic tests for detection and/or diagnosis of COVID-19 is terminated under Section 564(b)(2) of the Act or the EUA is revoked under Section 564(g) of the Act.Testing was performed using the [employer] SARS-CoV-2 assay.Fact Sheet for Healthcare Providers:https://www.Etsy.claire/cali/ DA_JLXZ-XlY-2_NOI_Yqld_Qedeu_73-000486.pdfFact Sheet for Healthcare Patients:https://www.Etsy.QuikCycle yen/cali/KJ_XFEV-OdA-9_Gfyyuve_Mbdw_Oigfp_OR_33-256824Q3.pdfPerforming Laboratory:[facility], [place] [address]IK, PARATHYROID IMAGING WITH SPECT/[id number] 15:24:00Reason for exam:->hyperparathyroid [facility] VAL[facility] : 1950 Sex: MFINAL REPORT PROCEDURE: PARATHYROID SCAN, with SPECT/CT CPT CODE: 30810 INDICATION: Hyperparathyroidism PROTOCOL: 15.7 mCi of Tc- 99m sestamibi was injected intravenously. Planar imaging of the head/neck and chest was performed shortly after tracer injection and was repeated approximately 3 hours later. Limited SPECT/CT images were also obtainedfor further tracer localization. FINDINGS: Early images show tracer uptake in the salivary glands, the thyroid gland, and the heart. Delayed images show substantial washout of tracer from the thyroid gland. No focal abnormality is noted in the thyroid bed or mediastinum. Pulmonary abnormalities seen on the nondiagnostic CT, consistent with prior CT of July 30, 2020. IMPRESSION: Normal radionuclide parathyroid scan. There is no focal accumulation to indicate parathyroid adenoma. Signed: Homero Lanza Verified Date/Time: 08/05/2020 15:24:48 Reading Location: [address] [employer] [facility] Reading Room NM parathyroid scan with SPECT/[id number] 15:24:00Interface, External Ris In - 08/05/2020 3:27 PM CSTFINAL REPORT PROCEDURE: PARATHYROID SCAN, with SPECT/CT CPT CODE: 15535 INDICATION: Hyperparathyroidism PROTOCOL: 15.7 mCi of Tc-99m sestamibi was injected intravenously. Planar imaging of the head/neck and chest was performed shortly after tracer injection and was repeated approximately 3 hours later. Limited SPECT/CT images were also obtained for further tracer localization. FINDINGS: Early images show tracer uptake in the salivary glands, the thyroid gland, and the heart. Delayed images showsubstantial washout of tracer from the thyroid gland. No focal abnormality is noted in the thyroid bed or mediastinum. Pulmonary abnormalities seen on the nondiagnostic CT, consistent with prior CT of July 30, 2020. IMPRESSION: Normal radionuclide parathyroid scan. There is no focal accumulation to indicate parathyroid adenoma. Signed: Homero Lanza Verified Date/Time: 08/05/2020 15:24:48 Reading Location: [address] [employer] [facility] Reading Room [facility] [id number] 06:36:00 Test Item Value Reference Range Interpretation Comments Troponin I (test code = 0.05 ng/mL 0-0.03 H 42643-5) JERONIMO (test code = JERONIMO) Troponin I (TnI) levels must be interpreted in the context of the presenting symptoms and the clinical findings. Elevated TnI levels indicate myocardial damage, but are not specific for ischemic heart disease. Elevated TnI levels are seen in patients with other cardiac conditions (including myocarditis and congestive heart failure), and slight TnI elevations occur in patients with other conditions, including sepsis, renal failure, acidosis, acute neurological disease, and persistent tachyarrhythmia.Opera tor ID - EDASI Lab Interpretation (test Abnormal code = 02849-6) [facility] [id number] 06:36:00 Test Item Value Reference Range Interpretation Comments TROPONIN I (BEAKER) (test code = 0.05 ng/mL 0.00-0.03 H 397) Troponin I (TnI) levels must be interpreted in the context of the presenting symptoms and the clinical findings. Elevated TnI levels indicate myocardial damage, but are not specific for ischemic heart disease. Elevated TnI levels are seen in patients with other cardiac conditions (including myocarditis and congestive heart failure), and slight TnI elevations occur in patients with other conditions, including sepsis, renal failure, acidosis, acute neurological disease, and persistent tachyarrhythmia.Picker/Puller ID - EDASIBASIC METABOLIC PANEL 2020-08-05 02:59:00 Test Item Value Reference Range Interpretation Comments SODIUM (BEAKER) 147 meq/L 136-145 H (test code = 381) POTASSIUM (BEAKER) 3.5 meq/L 3.5-5.1 (test code = 379) CHLORIDE (BEAKER) 97 meq/L 98-107 L (test code = 382) CO2 (BEAKER) (test 40 meq/L 22-29 HH code = 355) BLOOD UREA NITROGEN 17 mg/dL 7-21 (BEAKER) (test code = 354) CREATININE (BEAKER) 0.75 mg/dL 0.57-1.25 (test code = 358) GLUCOSE RANDOM 116 mg/dL 70-105 H (BEAKER) (test code = 652) CALCIUM (BEAKER) 9.6 mg/dL 8.4-10.2 (test code = 697) EGFR (BEAKER) (test 103 mL/min/1.73 ESTIM ATED GFR IS code = 1092) sq m NOT ACCURATE CREATININE CLEARANCE IN PREDICTING GLOMERULAR FILTRATION RATE . ESTIMATED GFR I S NOT APPLICABLE FOR DIALYSIS PATIEN TS. Picker/Puller ID - EDASITROPONIN [id number] 02:45:00 Test Item Value Reference Range Interpretation Comments TROPONIN I (BEAKER) (test code = 0.04 ng/mL 0.00-0.03 H 397) Troponin I (TnI) levels must be interpreted in the context of the presenting symptoms and the clinical findings. Elevated TnI levels indicate myocardial damage, but are not specific for ischemic heart disease. Elevated TnI levels are seen in patients with other cardiac conditions (including myocarditis and congestive heart failure), and slight TnI elevations occur in patients with other conditions, including sepsis, renal failure, acidosis, acute neurological disease, and persistent tachyarrhythmia.Picker/Puller ID - [id number] 02:42:00 Test Item Value Reference Range Interpretation Comments MAGNESIUM (BEAKER) (test code = 1.9 mg/dL 1.6-2.6 627) Picker/Puller ID - [id number] 02:42:00 Test Item Value Reference Range Interpretation Comments PHOSPHORUS (BEAKER) (test code = 1.6 mg/dL 2.3-4.7 L 604) Picker/Puller ID - EDASICBC W/PLT COUNT & AUTO [id number] 02:10:00 Test Item Value Reference Range Interpretation Comments WHITE BLOOD CELL COUNT (BEAKER) 8.5 K/ L 3.5-10.5 (test code = 775) RED BLOOD CELL COUNT (BEAKER) 3.69 M/ L 4.63-6.08 L (test code = 761) HEMOGLOBIN (BEAKER) (test code = 11.7 GM/DL 13.7-17.5 L 410) HEMATOCRIT (BEAKER) (test code = 37.5 % 40.1-51.0 L 411) MEAN CORPUSCULAR VOLUME (BEAKER) 101.6 fL 79.0-92.2 H (test code = 753) MEAN CORPUSCULAR HEMOGLOBIN 31.7 pg 25.7-32.2 (BEAKER) (test code = 751) MEAN CORPUSCULAR HEMOGLOBIN CONC 31.2 GM/DL 32.3-36.5 L (BEAKER) (test code = 752) RED CELL DISTRIBUTION WIDTH 18.1 % 11.6-14.4 H (BEAKER) (test code = 412) PLATELET COUNT (BEAKER) (test 155 K/CU MM 150-450 code = 756) MEAN PLATELET VOLUME (BEAKER) 9.9 fL 9.4-12.4 (test code = 754) NUCLEATED RED BLOOD CELLS 0 /100 WBC 0-0 (BEAKER) (test code = 413) NEUTROPHILS RELATIVE PERCENT 87 % (BEAKER) (test code = 429) LYMPHOCYTES RELATIVE PERCENT 5 % (BEAKER) (test code = 430) MONOCYTES RELATIVE PERCENT 7 % (BEAKER) (test code = 431) EOSINOPHILS RELATIVE PERCENT 1 % (BEAKER) (test code = 432) BASOPHILS RELATIVE PERCENT 0 % (BEAKER) (test code = 437) NEUTROPHILS ABSOLUTE COUNT 7.42 K/ L 1.78-5.38 H (BEAKER) (test code = 670) LYMPHOCYTES ABSOLUTE COUNT 0.43 K/ L 1.32-3.57 L (BEAKER) (test code = 414) MONOCYTES ABSOLUTE COUNT (BEAKER) 0.58 K/ L 0.30-0.82 (test code = 415) EOSINOPHILS ABSOLUTE COUNT 0.05 K/ L 0.04-0.54 (BEAKER) (test code = 416) BASOPHILS ABSOLUTE COUNT (BEAKER) 0.01 K/ L 0.01-0.08 (test code = 417) IMMATURE GRANULOCYTES-RELATIVE 1 % 0-1 PERCENT (BEAKER) (test code = 2801) RAD, CHEST, 1 VIEW, NON [id number] 02:09:00Reason for exam:->chest painShould this be performed at the bedside?->Yes [facility] IMELDA VALENCIA POL[place] : 1950 Sex: MFINAL REPORT History: Chest pain. Comparison: 07/28/2020. Correlation is made with a CT chest dated 07/29/2020 Findings: A single view of the chest is submitted. The examination is limited by mild rightward rotation. The cardiac silhouette is within normal limits forsize. There is atherosclerotic calcification of the aorta. The patient has undergone CABG. Patchy bilateral pulmonary opacities and bilateral pleural opacification appears similar to previous. As before the appearance is nonspecific but could reflect multifocal infection on a background of severe pulmonary emphysema and parenchymal scarring. Underlying pulmonary lesions are not definitively excludedand continued follow-up is recommended. The morphology of the right pleural collection appears loculated. There is a loculated left apical hydropneumothorax, similar to previous. There is no acute bony abnormality. Impression: No significant interval change. Signed: Naren Wangort Verified Date/Time: 08/05/2020 02:09:03 XR chest 1 view portable / [id number] 02:09:00Interface, External Ris In - 08/05/2020 2:11 AM CSTFINAL REPORT History: Chest pain. Comparison: 07/28/2020. Correlation is made with a CT chest dated 07/29/2020 Findings: A single view of the chest is submitted. The examination is limited by mild rightward rotation. The cardiac silhouette is within normal limits for size. There is atherosclerotic calcification of the aorta. The patient has undergone CABG. Patchy bilateral pulmonary opacities and bilateral pleural opacification appears similar to previous. As before the appearance is nonspecific but could reflect multifocal infection on a background of severe pulmonary emphysema and parenchymal scarring. Underlying pulmonary lesions are not definitively excluded and continued follow-up is recommended. The morphology of the right pleural collection appears loculated. There is a loculated left apical hydropneumothorax, similar to previous. There is no acute bony abnormality. Impression: No significant interval change. Signed: Naren Wang MDRyin Verified Date/Time: 08/05/2020 02:09:03 [facility] [id number] 01:58:00 Test Item Value Reference Range Interpretation Comments CALCIUM IONIZED (BEAKER) (test 1.26 mmol/L 1.12-1.27 code = 698) PH, BLOOD (BEAKER) (test code = 7.39 1810) CBC W/PLT COUNT & AUTO [id number] 06:25:00 Test Item Value Reference Range Interpretation Comments WHITE BLOOD CELL COUNT (BEAKER) 9.4 K/ L 3.5-10.5 (test code = 775) RED BLOOD CELL COUNT (BEAKER) 3.60 M/ L 4.63-6.08 L (test code = 761) HEMOGLOBIN (BEAKER) (test code = 11.5 GM/DL 13.7-17.5 L 410) HEMATOCRIT (BEAKER) (test code = 37.1 % 40.1-51.0 L 411) MEAN CORPUSCULAR VOLUME (BEAKER) 103.1 fL 79.0-92.2 H (test code = 753) MEAN CORPUSCULAR HEMOGLOBIN 31.9 pg 25.7-32.2 (BEAKER) (test code = 751) MEAN CORPUSCULAR HEMOGLOBIN CONC 31.0 GM/DL 32.3-36.5 L (BEAKER) (test code = 752) RED CELL DISTRIBUTION WIDTH 18.1 % 11.6-14.4 H (BEAKER) (test code = 412) PLATELET COUNT (BEAKER) (test 170 K/CU MM 150-450 code = 756) MEAN PLATELET VOLUME (BEAKER) 10.8 fL 9.4-12.4 (test code = 754) NUCLEATED RED BLOOD CELLS 0 /100 WBC 0-0 (BEAKER) (test code = 413) NEUTROPHILS RELATIVE PERCENT 88 % (BEAKER) (test code = 429) LYMPHOCYTES RELATIVE PERCENT 5 % (BEAKER) (test code = 430) MONOCYTES RELATIVE PERCENT 6 % (BEAKER) (test code = 431) EOSINOPHILS RELATIVE PERCENT 0 % (BEAKER) (test code = 432) BASOPHILS RELATIVE PERCENT 0 % (BEAKER) (test code = 437) NEUTROPHILS ABSOLUTE COUNT 8.34 K/ L 1.78-5.38 H (BEAKER) (test code = 670) LYMPHOCYTES ABSOLUTE COUNT 0.47 K/ L 1.32-3.57 L (BEAKER) (test code = 414) MONOCYTES ABSOLUTE COUNT (BEAKER) 0.54 K/ L 0.30-0.82 (test code = 415) EOSINOPHILS ABSOLUTE COUNT 0.04 K/ L 0.04-0.54 (BEAKER) (test code = 416) BASOPHILS ABSOLUTE COUNT (BEAKER) 0.01 K/ L 0.01-0.08 (test code = 417) IMMATURE GRANULOCYTES-RELATIVE 0 % 0-1 PERCENT (BEAKER) (test code = 2801) BASIC METABOLIC [id number] 06:11:00 Test Item Value Reference Range Interpretation Comments SODIUM (BEAKER) 148 meq/L 136-145 H (test code = 381) POTASSIUM (BEAKER) 3.5 meq/L 3.5-5.1 (test code = 379) CHLORIDE (BEAKER) 97 meq/L 98-107 L (test code = 382) CO2 (BEAKER) (test 41 meq/L 22-29 HH code = 355) BLOOD UREA NITROGEN 22 mg/dL 7-21 H (BEAKER) (test code = 354) CREATININE (BEAKER) 0.73 mg/dL 0.57-1.25 (test code = 358) GLUCOSE RANDOM 109 mg/dL 70-105 H (BEAKER) (test code = 652) CALCIUM (BEAKER) 9.6 mg/dL 8.4-10.2 (test code = 697) EGFR (BEAKER) (test 106 mL/min/1.73 ESTIM ATED GFR IS code = 1092) sq m NOT ACCURATE CREATININE CLEARANCE IN PREDICTING GLOMERULAR FILTRATION RATE . ESTIMATED GFR I S NOT APPLICABLE FOR DIALYSIS PATIEN TS. Picker/Puller ID - DEQUAN [id number] 06:01:00 Test Item Value Reference Range Interpretation Comments MAGNESIUM (BEAKER) (test code = 2.0 mg/dL 1.6-2.6 627) Picker/Puller ID - DEQUAN [id number] 06:01:00 Test Item Value Reference Range Interpretation Comments PHOSPHORUS (BEAKER) (test code = 1.9 mg/dL 2.3-4.7 L 604) Picker/Puller ID - DEQUAN LCALCIUM, [id number] 04:56:00 Test Item Value Reference Range Interpretation Comments CALCIUM IONIZED (BEAKER) (test 1.29 mmol/L 1.12-1.27 H code = 698) PH, BLOOD (BEAKER) (test code = 7.29 1810) Clostridium difficile GDH [id number] 19:30:00 Test Item Value Reference Range Interpretation Comments C. Difficle Toxin Negative Negative (test code = 4488495763) C. Difficile GDH Negative Negative No indicati on of Antigen (test code = Clostri dium [id number]) difficile infection and n o colonization. Discontinue enteric isolati on and therapy. JERONIMO (test code = Testing performed JERONIMO) by [employer] Rapid Cassette Assay. For GDH, published sensitivity of the assay is 98.7% compared to cytotoxicity testing. For Toxin AB, published sensitivity is 87.8% and specificity 99.4% compared to cytotoxicity testing.Verificati on of kit performance was done by the [facility] Lab prior to clinical use. Lab Interpretation Normal (test code = 93049-2) [facility] DIFFICILE GDH [id number] 19:30:00 Test Item Value Reference Range Interpretation Comments CDT TOXIN (test code Negative Negative = [id number]) CDT GDH ANTIGEN (test Negative Negative No ind ication of code = 9320214244) Clostridi um difficile infection and n o colonization. Discontinue ent shane isolation and t herapy. Testing performed by [employer] Rapid Cassette Assay. For GDH, published sensitivity of the assay is 98.7% compared to cytotoxicity testing. For Toxin AB, published sensitivity is 87.8% and specificity 99.4% compared to cytotoxicity testing.Verification of kit performance was done by the [facility] Microbiology [facility] prior to clinical use.Transesophageal [id number] 09:53:18Ejection FractionSLE ECHO HEARTLAB MKCKESSON CPACSInterface, External Ris In - 08/03/2020 9:53 AM CSTTransesophageal Echocardiography Report (DIANELYS) Demographics Patient Name IMELDA VALENCIA Date of Study 08/01/2020 GENE Gender Male Visit Number [id number] Race Unknown Room Number 1054 Number Date of 1950 Referring Physician Trey Ramos MD Age 70 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[employer] [facility] Interpreting Elie Brewer, Physician Fellow Aminata Martinez MD Procedure Type of Study DIANELYS procedure:TRANSESOPHAGEAL ECHO (Routine) Indications:Atrial fibrillation.Clinical HistoryHTN, HLD, CAD, ACB X3 (09/2015), COPD, HOME O2, PAF, TIA, PAD, HYPOTHYROID,CAROTID STENOSIS, MILDLY DEPRESSED RV FXNHeight: 67 inches Weight: 48.99 kg (108 lbs)BSA: 1.56 m^2 BMI: 16.92 kg/m^2HR: 83 bpm BP: 156/106 mmHgTEE Performed By: the attending and the fellow Procedure Informed Consent DIANELYS procedure notes Moderate sedation by performing MD using 1 mg IVversed and 50 mcg IV fentanyl. DCCV 200J X1. Type of Anesthesia: Moderate sedation Summary No SUN thrombus. Estimated LVEF by qualitative assessment is severely reduced (20-24%) . Successful DCCV using 200 joules synched. Signature Findings Left The left ventricle is chamber size (by vol index) is normal. Ventricle Normal LV wall thickness. All of the LV segments are severely hypokinetic . Estimated LVEF by qualitative assessment isseverely reduced (20- 24%) . Left Atrium No SUN thrombus. LA is enlarged but severity a ssessment is unreliable due to known DIANELYS sector size limitation. Right There ismild systolic dysfunction of the right ventricle. Ventricle The right ventricular cavity size is mildly enlarged. Right Atrium The right atrium is not well visualized. Atrial IV saline contrast injection was negative for a PFO (patent Septum foramen ovale) at rest and post Valsalva .Aortic Valve Mild leaflet thickening. Mild leaflet calcification. Normal function. Mitral Valve Mild leaflet thickening. Mild MR is present. Tricuspid TV structure is normal. Valve Mild tricuspid regurgitation. Estimated peak systolic PA pressure is 20-25 mmHg + RA pressure. (RA pressure indeterminate on this exam) Pulmonic Normal PV structure and function. Valve Aorta Aortic root size (SInus of Valsalva diameter) is normal . Grade 2 plaque (extensive intimal thickening) in the descending thoracic aorta . Pericardium No significant pericardial effusion is visualized. Left Ventricle LVEDV Solorio's:44.85 ml LVESV Solorio's:35.23 ml LVEF Solorio's: 21.4 % LVEDVI: 29ml/m^2 LVESVI: 23 ml/m^2[facility] CenterBAS[facility] METABOLIC [id number] 07:25:00 Test Item Value Reference Range Interpretation Comments SODIUM (BEAKER) 150 meq/L 136-145 H (test code = 381) POTASSIUM (BEAKER) 4.0 meq/L 3.5-5.1 Specimen slightly (test code = 379) hemolyzed CHLORIDE (BEAKER) 100 meq/L 98-107 (test code = 382) CO2 (BEAKER) (test 39 meq/L 22-29 H code = 355) BLOOD UREA NITROGEN 27 mg/dL 7-21 H (BEAKER) (test code = 354) CREATININE (BEAKER) 0.75 mg/dL 0.57-1.25 Specimen slightly (test code = 358) hemolyzed GLUCOSE RANDOM 100 mg/dL 70-105 (BEAKER) (test code = 652) CALCIUM (BEAKER) 10.4 mg/dL 8.4-10.2 H (test code = 697) EGFR (BEAKER) (test 103 mL/min/1.73 ESTIM ATED GFR IS code = 1092) sq m NOT ACCURATE CREATININE CLEARANCE IN PREDICTING GLOMERULAR FILTRATION RATE . ESTIMATED GFR I S NOT APPLICABLE FOR DIALYSIS PATIEN TS. Picker/Puller ID - [id number] 06:30:00 Test Item Value Reference Range Interpretation Comments MAGNESIUM (BEAKER) 2.2 mg/dL 1.6-2.6 Specimen slightly (test code = 627) hemolyzed Picker/Puller ID - [id number] 06:30:00 Test Item Value Reference Range Interpretation Comments PHOSPHORUS (BEAKER) 2.3 mg/dL 2.3-4.7 Specimen slightly (test code = 604) hemolyzed Picker/Puller ID - ADMINCBC W/PLT COUNT & AUTO [id number] 06:05:00 Test Item Value Reference Range Interpretation Comments WHITE BLOOD CELL COUNT (BEAKER) 10.8 K/ L 3.5-10.5 H (test code = 775) RED BLOOD CELL COUNT (BEAKER) 3.91 M/ L 4.63-6.08 L (test code = 761) HEMOGLOBIN (BEAKER) (test code = 12.4 GM/DL 13.7-17.5 L 410) HEMATOCRIT (BEAKER) (test code = 40.3 % 40.1-51.0 411) MEAN CORPUSCULAR VOLUME (BEAKER) 103.1 fL 79.0-92.2 H (test code = 753) MEAN CORPUSCULAR HEMOGLOBIN 31.7 pg 25.7-32.2 (BEAKER) (test code = 751) MEAN CORPUSCULAR HEMOGLOBIN CONC 30.8 GM/DL 32.3-36.5 L (BEAKER) (test code = 752) RED CELL DISTRIBUTION WIDTH 18.2 % 11.6-14.4 H (BEAKER) (test code = 412) PLATELET COUNT (BEAKER) (test 193 K/CU MM 150-450 code = 756) MEAN PLATELET VOLUME (BEAKER) 10.4 fL 9.4-12.4 (test code = 754) NUCLEATED RED BLOOD CELLS 0 /100 WBC 0-0 (BEAKER) (test code = 413) NEUTROPHILS RELATIVE PERCENT 91 % (BEAKER) (test code = 429) LYMPHOCYTES RELATIVE PERCENT 4 % (BEAKER) (test code = 430) MONOCYTES RELATIVE PERCENT 5 % (BEAKER) (test code = 431) EOSINOPHILS RELATIVE PERCENT 0 % (BEAKER) (test code = 432) BASOPHILS RELATIVE PERCENT 0 % (BEAKER) (test code = 437) NEUTROPHILS ABSOLUTE COUNT 9.81 K/ L 1.78-5.38 H (BEAKER) (test code = 670) LYMPHOCYTES ABSOLUTE COUNT 0.38 K/ L 1.32-3.57 L (BEAKER) (test code = 414) MONOCYTES ABSOLUTE COUNT (BEAKER) 0.52 K/ L 0.30-0.82 (test code = 415) EOSINOPHILS ABSOLUTE COUNT 0.01 K/ L 0.04-0.54 L (BEAKER) (test code = 416) BASOPHILS ABSOLUTE COUNT (BEAKER) 0.01 K/ L 0.01-0.08 (test code = 417) IMMATURE GRANULOCYTES-RELATIVE 1 % 0-1 PERCENT (BEAKER) (test code = 2801) CALCIUM, [id number] 05:55:00 Test Item Value Reference Range Interpretation Comments CALCIUM IONIZED (BEAKER) (test 1.37 mmol/L 1.12-1.27 H code = 698) PH, BLOOD (BEAKER) (test code = 7.26 1810) Blood Culture - Routine (Right Venipuncture)2020-08-03 03:00:00 Test Item Value Reference Range Interpretation Comments Result (test code = No growth in 5 days 6463-4) [facility] [id number] 03:00:00 Test Item Value Reference Range Interpretation Comments CULTURE (BEAKER) (test No growth in 5 days code = 1095) BLOOD [id number] 03:00:00 Test Item Value Reference Range Interpretation Comments CULTURE (BEAKER) (test No growth in 5 days code = 1095) [id number] 06:58:00 Test Item Value Reference Range Interpretation Comments MAGNESIUM (BEAKER) 2.0 mg/dL 1.6-2.6 Specimen slightly (test code = 627) hemolyzed Picker/Puller ID - CHARLENE [id number] 06:58:00 Test Item Value Reference Range Interpretation Comments PHOSPHORUS (BEAKER) 2.6 mg/dL 2.3-4.7 Specimen slightly (test code = 604) hemolyzed Picker/Puller ID - CHARLENE MBASIC METABOLIC [id number] 06:58:00 Test Item Value Reference Range Interpretation Comments SODIUM (BEAKER) 145 meq/L 136-145 (test code = 381) POTASSIUM (BEAKER) 4.0 meq/L 3.5-5.1 Specimen slightly (test code = 379) hemolyzed CHLORIDE (BEAKER) 99 meq/L 98-107 (test code = 382) CO2 (BEAKER) (test 35 meq/L 22-29 H code = 355) BLOOD UREA NITROGEN 37 mg/dL 7-21 H (BEAKER) (test code = 354) CREATININE (BEAKER) 0.79 mg/dL 0.57-1.25 Specimen slightly (test code = 358) hemolyzed GLUCOSE RANDOM 129 mg/dL 70-105 H (BEAKER) (test code = 652) CALCIUM (BEAKER) 9.9 mg/dL 8.4-10.2 (test code = 697) EGFR (BEAKER) (test 97 mL/min/1.73 ESTIMA TYRA GFR IS code = 1092) sq m NOT ACCURATE CREATININE CLEARANCE IN PREDICTING GLOMERULAR FILTRATION RATE . ESTIMATED GFR I S NOT APPLICABLE FOR DIALYSIS PATIEN TS. Picker/Puller ID - CHARLENE MPTH, [id number] 06:40:00 Test Item Value Reference Range Interpretation Comments PTH (test code = 2731-8) 86.9 pg/mL 8.5-72.5 H JERONIMO (test code = JERONIMO) Picker/Puller ID - CHARLENE M Lab Interpretation (test Abnormal code = 28911-4) [facility], [id number] 06:40:00 Test Item Value Reference Range Interpretation Comments PARATHYROID HORMONE INTACT 86.9 pg/mL 8.5-72.5 H (BEAKER) (test code = 577) Picker/Puller ID - CHALRENE MCALCIUM, [id number] 06:21:00 Test Item Value Reference Range Interpretation Comments CALCIUM IONIZED (BEAKER) (test 1.32 mmol/L 1.12-1.27 H code = 698) PH, BLOOD (BEAKER) (test code = 7.34 1810) CBC (Hemogram only)2020-08-02 06:12:00 Test Item Value Reference Range Interpretation Comments WBC (test code = 6690-2) 7.3 See_Comment [A utomated message] The system [employer] generated this result transmitted ref erence range: 3.5 - 10 .5 K/L. The refe rence range was not u sed to interpret this result as normal/abnor mal. RBC (test code = 789-8) 3.65 See_Comment L [Au tomated message] The system [employer] generated this result transmitted ref erence range: 4.63 - 6 .08 M/L. The refe rence range was not u sed to interpret this result as normal/abnor mal. MCHC (test code = 786-4) 30.7 See_Comment L [A utomated message] The system [employer] generated this result transmitted ref erence range: 32.3 - 3 6.5 GM/DL. The refe rence range was not u sed to interpret this result as normal/abnor mal. Hematocrit (test code = 37.5 % 40.1-51 L 4544-3) MCV (test code = 787-2) 102.7 fL 79-92.2 H MCH (test code = 785-6) 31.5 pg 25.7-32.2 RDW (test code = 788-0) 17.9 % 11.6-14.4 H Platelets (test code = 188 See_Comment [Aut omated message] 777-3) The system [employer] generated this result transmitted ref erence range: 150 - 45 0 K/CU MM. The referen ce range was not u sed to interpret this result as normal/abnor mal. MPV (test code = 10.9 fL 9.4-12.4 79680-3) nRBC (test code = 413) 0 See_Comment [Aut omated message] The system [employer] generated this result transmitted ref erence range: 0 - 0 /1 00 WBC. The refere nce range was not u sed to interpret this result as normal/abnor mal. Lab Interpretation (test Abnormal code = 75638-4) [facility] (HEMOGRAM ONLY)2020-08-02 06:12:00 Test Item Value Reference Range Interpretation Comments WHITE BLOOD CELL COUNT (BEAKER) 7.3 K/ L 3.5-10.5 (test code = 775) RED BLOOD CELL COUNT (BEAKER) 3.65 M/ L 4.63-6.08 L (test code = 761) HEMOGLOBIN (BEAKER) (test code = 11.5 GM/DL 13.7-17.5 L 410) HEMATOCRIT (BEAKER) (test code = 37.5 % 40.1-51.0 L 411) MEAN CORPUSCULAR VOLUME (BEAKER) 102.7 fL 79.0-92.2 H (test code = 753) MEAN CORPUSCULAR HEMOGLOBIN 31.5 pg 25.7-32.2 (BEAKER) (test code = 751) MEAN CORPUSCULAR HEMOGLOBIN CONC 30.7 GM/DL 32.3-36.5 L (BEAKER) (test code = 752) RED CELL DISTRIBUTION WIDTH 17.9 % 11.6-14.4 H (BEAKER) (test code = 412) PLATELET COUNT (BEAKER) (test 188 K/CU MM 150-450 code = 756) MEAN PLATELET VOLUME (BEAKER) 10.9 fL 9.4-12.4 (test code = 754) NUCLEATED RED BLOOD CELLS 0 /100 WBC 0-0 (BEAKER) (test code = 413) BASIC METABOLIC [id number] 07:14:00 Test Item Value Reference Range Interpretation Comments SODIUM (BEAKER) 147 meq/L 136-145 H (test code = 381) POTASSIUM (BEAKER) 3.8 meq/L 3.5-5.1 (test code = 379) CHLORIDE (BEAKER) 100 meq/L 98-107 (test code = 382) CO2 (BEAKER) (test 37 meq/L 22-29 H code = 355) BLOOD UREA NITROGEN 29 mg/dL 7-21 H (BEAKER) (test code = 354) CREATININE (BEAKER) 0.69 mg/dL 0.57-1.25 (test code = 358) GLUCOSE RANDOM 97 mg/dL 70-105 (BEAKER) (test code = 652) CALCIUM (BEAKER) 9.4 mg/dL 8.4-10.2 (test code = 697) EGFR (BEAKER) (test 113 mL/min/1.73 ESTIM ATED GFR IS code = 1092) sq m NOT ACCURATE CREATININE CLEARANCE IN PREDICTING GLOMERULAR FILTRATION RATE . ESTIMATED GFR I S NOT APPLICABLE FOR DIALYSIS PATIEN TS. Picker/Puller ID Juwan ANSHU [id number] 07:14:00 Test Item Value Reference Range Interpretation Comments MAGNESIUM (BEAKER) (test code = 1.9 mg/dL 1.6-2.6 627) Picker/Puller ID - ANSHU [id number] 07:14:00 Test Item Value Reference Range Interpretation Comments PHOSPHORUS (BEAKER) (test code = 2.5 mg/dL 2.3-4.7 604) Picker/Puller ID Juwan BRASHER [facility] (HEMOGRAM ONLY)2020-08-01 06:21:00 Test Item Value Reference Range Interpretation Comments WHITE BLOOD CELL COUNT (BEAKER) 8.0 K/ L 3.5-10.5 (test code = 775) RED BLOOD CELL COUNT (BEAKER) 3.92 M/ L 4.63-6.08 L (test code = 761) HEMOGLOBIN (BEAKER) (test code = 12.5 GM/DL 13.7-17.5 L 410) HEMATOCRIT (BEAKER) (test code = 39.3 % 40.1-51.0 L 411) MEAN CORPUSCULAR VOLUME (BEAKER) 100.3 fL 79.0-92.2 H (test code = 753) MEAN CORPUSCULAR HEMOGLOBIN 31.9 pg 25.7-32.2 (BEAKER) (test code = 751) MEAN CORPUSCULAR HEMOGLOBIN CONC 31.8 GM/DL 32.3-36.5 L (BEAKER) (test code = 752) RED CELL DISTRIBUTION WIDTH 17.6 % 11.6-14.4 H (BEAKER) (test code = 412) PLATELET COUNT (BEAKER) (test 204 K/CU MM 150-450 code = 756) MEAN PLATELET VOLUME (BEAKER) 10.2 fL 9.4-12.4 (test code = 754) NUCLEATED RED BLOOD CELLS 0 /100 WBC 0-0 (BEAKER) (test code = 413) CALCIUM, [id number] 05:55:00 Test Item Value Reference Range Interpretation Comments CALCIUM IONIZED (BEAKER) (test 1.28 mmol/L 1.12-1.27 H code = 698) PH, BLOOD (BEAKER) (test code = 7.37 1810) BASIC METABOLIC [id number] 06:43:00 Test Item Value Reference Range Interpretation Comments SODIUM (BEAKER) 147 meq/L 136-145 H (test code = 381) POTASSIUM (BEAKER) 4.2 meq/L 3.5-5.1 (test code = 379) CHLORIDE (BEAKER) 101 meq/L 98-107 (test code = 382) CO2 (BEAKER) (test 37 meq/L 22-29 H code = 355) BLOOD UREA NITROGEN 31 mg/dL 7-21 H (BEAKER) (test code = 354) CREATININE (BEAKER) 0.79 mg/dL 0.57-1.25 (test code = 358) GLUCOSE RANDOM 88 mg/dL 70-105 (BEAKER) (test code = 652) CALCIUM (BEAKER) 10.1 mg/dL 8.4-10.2 (test code = 697) EGFR (BEAKER) (test 97 mL/min/1.73 ESTIMA TYRA GFR IS code = 1092) sq m NOT ACCURATE CREATININE CLEARANCE IN PREDICTING GLOMERULAR FILTRATION RATE . ESTIMATED GFR I S NOT APPLICABLE FOR DIALYSIS PATIEN TS. Picker/Puller ID - [id number] 06:43:00 Test Item Value Reference Range Interpretation Comments MAGNESIUM (BEAKER) (test code = 2.2 mg/dL 1.6-2.6 627) Picker/Puller ID - [id number] 06:43:00 Test Item Value Reference Range Interpretation Comments PHOSPHORUS (BEAKER) (test code = 2.0 mg/dL 2.3-4.7 L 604) Picker/Puller ID - DBCBC (HEMOGRAM ONLY)2020-07-31 06:14:00 Test Item Value Reference Range Interpretation Comments WHITE BLOOD CELL COUNT (BEAKER) 9.6 K/ L 3.5-10.5 (test code = 775) RED BLOOD CELL COUNT (BEAKER) 3.88 M/ L 4.63-6.08 L (test code = 761) HEMOGLOBIN (BEAKER) (test code = 12.1 GM/DL 13.7-17.5 L 410) HEMATOCRIT (BEAKER) (test code = 39.8 % 40.1-51.0 L 411) MEAN CORPUSCULAR VOLUME (BEAKER) 102.6 fL 79.0-92.2 H (test code = 753) MEAN CORPUSCULAR HEMOGLOBIN 31.2 pg 25.7-32.2 (BEAKER) (test code = 751) MEAN CORPUSCULAR HEMOGLOBIN CONC 30.4 GM/DL 32.3-36.5 L (BEAKER) (test code = 752) RED CELL DISTRIBUTION WIDTH 17.9 % 11.6-14.4 H (BEAKER) (test code = 412) PLATELET COUNT (BEAKER) (test 204 K/CU MM 150-450 code = 756) MEAN PLATELET VOLUME (BEAKER) 10.1 fL 9.4-12.4 (test code = 754) NUCLEATED RED BLOOD CELLS 0 /100 WBC 0-0 (BEAKER) (test code = 413) CALCIUM, [id number] 06:05:00 Test Item Value Reference Range Interpretation Comments CALCIUM IONIZED (BEAKER) (test 1.35 mmol/L 1.12-1.27 H code = 698) PH, BLOOD (BEAKER) (test code = 7.33 1810) CT, CHEST, WITHOUT [id number] 08:31:00Unlisted Reason for Exam - Click Yes and Enter Reason Below->No [facility] : 1950 Sex: MFINAL REPORT TECHNIQUE: CT of the chest WITHOUT intravenous contrast. Dose modulation, iterative reconstruction, and/or weight-based adjustment of the mA/kV was utilized to reduce the radiation dose to as low as reasonably achievable. INDICATION: 70-year-old man with COPD exacerbation. COMPARISON: Chest radiograph 07/28/2020. FINDINGS: ABSENCE OF INTRAVENOUS CONTRAST DECREASES SENSITIVITY FOR DETECTION OF FOCAL LESIONS AND VASCULAR PATHOLOGY. LINES/TUBES: None. LUNGS AND AIRWAYS: Trace mucus in the trachea. Central airways are otherwise patent. Moderate-severe emphysema. Patchy consolidative opacities in both upper lobes as well as in the left upper lobe. Nodular /tree-in-bud opacities in both upper and left lower lobes. Subcentimeter calcified granulomas scattered in the right lung. PLEURA: Loculated moderate left apical pneumothorax. Bilateral loculated pleural effusions, small the right and trace on the left. HEART AND MEDIASTINUM: Visualized thyroid gland is normal. No significant mediastinal, hilar, or axillary lymphadenopathy. Calcified mediastinal lymph nodes, likely related to prior granulomatous disease. Heart and pericardium are within normal limits. Atherosclerotic calcifications in the thoracic aorta and coronary arteries. BONES AND SOFT TISSUES: Degenerative changes of the visualized spine. 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 Soft tissues are unremarkable. UPPER ABDOMEN: Subcentimeter hypodensity in the left hepatic lobe is too small to characterize, but is likely a cyst. Cholelithiasis. Partially visualized 1.2 x 0.9 cm cyst in the left kidney. Visualized abdominal aorta is normal in caliberwith questionable dissection flap in the proximal abdominal aorta. IMPRESSION:Loculated moderate left apical pneumothorax. Bilateral consolidative and nodular/tree-in-bud opacities, suspicious for infe ctious/inflammatory process. Moderate-severe emphysema. Visualized abdominal aorta is normal in caliber with questionable dissection flap in the proximal abdominal aorta. If indicated, CTA may be obtained for further evaluation. Pneumothorax findings were relayed to Dr. Ontiveros at 8:28 AM on 07/30/2020. Signed: Dee Ozuna MDReport Verified Date/Time: 07/30/2020 08:31:26 Reading Location: [facility] [id number] CT Body Reading Room CT chest without IV contrast 2020-07-30 08:31:00Interface, External Ris In - 07/30/2020 8:33 AM CSTFINAL REPORT TECHNIQUE: CT of the chest WITHOUT intravenous contrast. Dose modulation, iterative reconstruction, and/or weight-based adjustment of the mA/kV was utilized to reduce the radiation dose to as low as reasonably achievable. INDICATION: 70-year-old man with COPD exacerbation. COMPARISON: Chest radiograph 07/28/2020.FINDINGS: ABSENCE OF INTRAVENOUS CONTRAST DECREASES SENSITIVITY FOR DETECTION OF FOCAL LESIONS AND VASCULAR PATHOLOGY. LINES/TUBES: None. LUNGS AND AIRWAYS: Trace mucus in the trachea. Central airwaysare otherwise patent. Moderate-severe emphysema. Patchy consolidative opacities in both upper lobes as well as in the left upper lobe. Nodular/tree-in-bud opacities in both upper and left lower lobes. Subcentimeter calcified granulomas scattered in the right lung. PLEURA: Loculated moderate left apical pneumothorax. Bilateral loculated pleural effusions, small the right and trace on the left. HEART AND MEDIASTINUM: Visualized thyroid gland is normal. No significant mediastinal, hilar, or axillary lymphadenopathy. Calcified mediastinal lymph nodes, likely related to prior granulomatous disease. Heart and pericardium are within normal limits. Atherosclerotic calcifications in the thoracic aorta and coronary arteries. BONES AND SOFT TISSUES: Degenerative changes of the visualized spine. 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 Soft tissues are unremarkable. UPPER ABDOMEN: Subcentimeter hypodensity in the left hepatic lobe is too small to characterize, but is likely a cyst. Cholelithiasis. Partially visualized 1.2 x 0.9 cm cyst in the left kidney. Visualized abdominal aorta is normal in caliber with questionable dissection flap in the proximal abdominalaorta. IMPRESSION:Loculated moderate left apical pneumothorax. Bilateral consolidative and nodular/tree-in-bud opacities, suspicious for infectious/inflammatory process. Moderate-severe emphysema. Visualized abdominal aorta is normal in caliber with questionable dissection flap in the proximal abdominal aorta. If indicated, CTA may be obtained for further evaluation. Pneumothorax findings were relayed to Dr. Ontiveros at 8:28 AM on 07/30/2020. Signed: Dee Ozuna MDReport Verified Date/Time:07/30/2020 08:31:26 Reading Location: [address] Body Reading Room [facility] METABOLIC [id number] 05:54:00 Test Item Value Reference Range Interpretation Comments SODIUM (BEAKER) 145 meq/L 136-145 (test code = 381) POTASSIUM (BEAKER) 4.2 meq/L 3.5-5.1 (test code = 379) CHLORIDE (BEAKER) 107 meq/L 98-107 (test code = 382) CO2 (BEAKER) (test 30 meq/L 22-29 H code = 355) BLOOD UREA NITROGEN 34 mg/dL 7-21 H (BEAKER) (test code = 354) CREATININE (BEAKER) 0.81 mg/dL 0.57-1.25 (test code = 358) GLUCOSE RANDOM 123 mg/dL 70-105 H (BEAKER) (test code = 652) CALCIUM (BEAKER) 9.9 mg/dL 8.4-10.2 (test code = 697) EGFR (BEAKER) (test 94 mL/min/1.73 ESTIMA TYRA GFR IS code = 1092) sq m NOT ACCURATE CREATININE CLEARANCE IN PREDICTING GLOMERULAR FILTRATION RATE . ESTIMATED GFR I S NOT APPLICABLE FOR DIALYSIS PATIEN TS. Picker/Puller ID - [id number] 05:54:00 Test Item Value Reference Range Interpretation Comments MAGNESIUM (BEAKER) (test code = 2.0 mg/dL 1.6-2.6 627) Picker/Puller ID - [id number] 05:54:00 Test Item Value Reference Range Interpretation Comments PHOSPHORUS (BEAKER) (test code = 2.4 mg/dL 2.3-4.7 604) Picker/Puller ID - [id number] (HEMOGRAM ONLY)2020-07-30 05:20:00 Test Item Value Reference Range Interpretation Comments WHITE BLOOD CELL COUNT (BEAKER) 10.7 K/ L 3.5-10.5 H (test code = 775) RED BLOOD CELL COUNT (BEAKER) 3.75 M/ L 4.63-6.08 L (test code = 761) HEMOGLOBIN (BEAKER) (test code = 11.7 GM/DL 13.7-17.5 L 410) HEMATOCRIT (BEAKER) (test code = 38.0 % 40.1-51.0 L 411) MEAN CORPUSCULAR VOLUME (BEAKER) 101.3 fL 79.0-92.2 H (test code = 753) MEAN CORPUSCULAR HEMOGLOBIN 31.2 pg 25.7-32.2 (BEAKER) (test code = 751) MEAN CORPUSCULAR HEMOGLOBIN CONC 30.8 GM/DL 32.3-36.5 L (BEAKER) (test code = 752) RED CELL DISTRIBUTION WIDTH 18.1 % 11.6-14.4 H (BEAKER) (test code = 412) PLATELET COUNT (BEAKER) (test 211 K/CU MM 150-450 code = 756) MEAN PLATELET VOLUME (BEAKER) 9.6 fL 9.4-12.4 (test code = 754) NUCLEATED RED BLOOD CELLS 0 /100 WBC 0-0 (BEAKER) (test code = 413) CALCIUM, [id number] 05:00:00 Test Item Value Reference Range Interpretation Comments CALCIUM IONIZED (BEAKER) (test 1.38 mmol/L 1.12-1.27 H code = 698) PH, BLOOD (BEAKER) (test code = 7.31 1810) Iron, TIBC, % sat. (without ferritin)2020-07-29 18:42:00 Test Item Value Reference Range Interpretation Comments Iron (test code = 2498-4) 44.0 ug/dL 40-160 TIBC (test code = 2500-7) 215 ug/dL 250-450 L Iron % Saturation (test code 20 % 20-55 = 2502-3) JERONIMO (test code = JERONIMO) Picker/Puller ID - DB Lab Interpretation (test Abnormal code = 72137-3) [facility], % SAT. (WITHOUT FERRITIN)2020-07-29 18:42:00 Test Item Value Reference Range Interpretation Comments IRON (BEAKER) (test code = 547) 44.0 ug/dL 40.0-160.0 TOTAL IRON BINDING CAPACITY 215 ug/dL 250-450 L (BEAKER) (test code = 769) IRON % SATURATION (2) (BEAKER) 20 % 20-55 (test code = 2590) Picker/Puller ID - [id number] Echo W/Doppler(CW/PW/Color)2020-07-29 15:57:29Ejection FractionSLEH ECHO HEARTLAB MKCKESSON CPACSInterface, External Ris In - 07/29/2020 3:57 PM CSTTransthoracic Echocardiography Report (TTE) Demographics Patient Name IMELDA VALENCIA Date of Study 07/29/2020 GENE Gender Male Visit Number [id number] Race Unknown Room Number 1054 Number Date of 1950 Referring Mary Verduzco Physician MD Tom Age 70 year(s) [employer] Interpreting Mady Jones MD Physician Procedure Type of Study TTE procedure:2DECHO W DOPPLER(CW/PW/COLOR) (Routine) Indication s:Dyspnea/SOB.Clinical HistoryAFIB, CAD, COPD, HTN, HLD, Respiratory failure, PVD, Stroke, TIAHGB 12.2HCT 39.1 %Supervisor [employer]: China Johnsonight: 67 inches Weight: 48.99 kg (108 lbs) BSA: 1.56 m^2 BMI:16.92 kg/m^2HR: 60 bpm BP: 113/71 mmHg Summary Global LV systolic function severely reduced . LVEF by Solorio's method of disk assessment is severely reduced (25%). No evidence of LV hypertrophy. The left ventricle is chamber size (by vol index) is mildly enlarged (male - LVED 75-89ml/m2). The following segment(s) appear akinetic: inferolateral, inferior, inferoseptal. Grade 3 diastolic dysfunction (marked elevated LA pressure). LA size is moderately enlarged (42-48 ml/m2) . RV chamber size is moderately enlarged . Global RV systolic function is depressed . Mild tricuspid regurgitation. Estimated peak systolic PA pressure is 45-50 mmHg (mild pulmonary hypertension) . The estimated RA pressure by IVC dynamics 11-15mmHg . Previous Study No prior exam available for comparison. Signature Findings Left Ventricle Global LV systolic function severely reduced . LVEF by Solorio's method of disk assessment is severely reduced(25%). No evidence of LV hypertrophy. The following segment(s) appear akinetic: inferolateral, inferior, inferoseptal. The other segments are hypokinetic. The left ventricle is chamber size (by vol index) is mildly enlarged (male - LVED 75-89ml/m2). Grade 3 diastolic dysfunction (marked elevated LA pressure). Left Atrium LA size is moderately enlarged (42-48 ml/m2) . Right Ventricle RV chamber sizeis moderately enlarged . Global RV systolic function is depressed . Right Atrium RA size is moderately dilated. Aortic Valve Mild AoV cusp thickening. Mitral Valve Mild MV leaflet thickening. Mild mitral regurgitation. Tricuspid Valve TV structure is normal. Mild tricuspid regurgitation. Estimated peak systolic PA pressure is 45-50 mmHg (mild pulmonary hypertension) . Pulmonic Valve A trace of pulmonary regurgitation. PV is partially visualized. Aorta Aortic root size (SInus of Valsalva diameter) is normal . Proximal ascending aorta size is normal . Pericardium No significant pericardial effusion is visualized. IVC/SVC/PA/PV/Pleural The estimated RA pressure by IVC dynamics 11-15mmHg . Chambers/Structures Left Atrium LA Dimension: 5.03 cm LA Area: 21.25 cm^2 LA Volume: 67.69 ml LA Vol. Index:43 ml/m^2 Left Ventricle LVIDd: 5.11 cm LVEDV:124.42 ml LV Septum Diastolic: 0.9 cm LV PW Diastolic: 0.6 cm LVEDV Solorio's:135.17 ml LV Length: 8.64 cm LVESV Solorio's:101.67 ml LVEF Solorio's: 24.8 % LVEDVI: 87 ml/m^2 LVESVI: 65 ml/m^2 LVOT Diameter: 1.94 cm Right Ventricle RVOT VTI: 10.14 cm Doppler/Quantitative Measurements Mitral Valve MV Peak E-Wave: 0.82 m/s MV Peak A-Wave: 0.26 m/s Peak Velocity: 5.43 m/s E/A Ratio: 3.19 Mean Velocity: 4.11 m/s Peak Gradient: 2.71 mmHg Mean Gradient: 76.4 mmHg Deceleration Time: 145.4 msec Area (continuity): 0.25 cm^2 MV VTI: 170.74 cm MV [place]. Peak: Tissue Doppler E' Septal Velocity: 0.05 m/sE/E': 15.66 E' Lateral Velocity: 0.07 m/s Aortic Valve Peak Velocity: 1.86 m/s Mean Velocity: 1.12 m/s Peak Gradient: 13.8 mmHg Mean Gradient: 6 mmHg AV Area (contin uity): 1.46 cm^2 AV VTI: 29.69 cm AV DVI: 0.5 LVOT Peak Velocity: 0.91 m/s Peak Gradient: 3.36 mmHg Mean Velocity: 0.6 m/s Mean Gradient: 1.67 mmHg LVOT Diameter: 1.94 cm LVOT VTI: 14.72 cm LVOT Area: 2.96 cm^2 LVOT SV:43.49 ml LVOT CO: 2.61 l/min LVOT CI: 1.67 l/min/m^2 Tricuspid Valve TR Velocity: 2.98 m/s TR Gradient: 35.53 mmHgStan[facility] ([facility]) 2020-07-29 11:34:00 Test Item Value Reference Range Interpretation Comments SARS-COV2/RT-PCR (test Negative Not Detected, Negative, code = [id number]) See external report for linked test SARS-COV-2 PERFORMING LAB [facility] (test code = 6782642) Negative result for this test determines that SARS-CoV-2 RNA was not present in the specimen above the Limit of Detection (LOD). However, Negative results do not preclude SARS-CoV-2 infection and should not be used as the sole basis for treatment or patient management decisions. Negative results mustbe combined with clinical observations, patient history, and epidemiological information. A false negative result may occur if a specimen is improperly collected, transported or handled. A false negative result should be considered if patient's recent exposures or clinical presentation indicate that COVID-19 (SARS-CoV-2) is likely and diagnostic tests for other causes of illness are negative. Re-testing should be considered in cases of suspected false negatives.The limit of detection for this assay is 800 copies/mL.This SARS CoV-2 test is a real-time RT-PCR test intended for the qualitative detection of nucleic acid from SARS-CoV-2 in a nasopharyngeal swab specimen collected from individuals susp ected of COVID-19 by their healthcare provider.This test has not been Food and Drug Administration (FDA) cleared or approved. This is a modified version of an approved Emergency Use Authorization (EUA) and is in the process of review by the FDA. Once authorized by the FDA, the issued EUA will be effective until the declaration that circumstances exist justifying the authorization of the emergency use of in vitro diagnostic tests for detection and/or diagnosis of COVID-19 is terminated under Section 564(b)(2) of the Act or the EUA is revoked under Section 564(g) of the Act.Fact Sheet for Healthcare Providers:https://www.[employer].com/sites/default/files/product/documents/Fact_Shee g_ZD_Mwygeeawn_Nrko_LTFE-WwR-1.pdfFact Sheet for Healthcare Patients:https://www.[employer].com/sites/default/files/product/ documents/Qnif_Ywmxg_Ueccptao_Rxzf_ZMRF-EbQ-9.pdfPerforming Laboratory:[facility] [place] [address]Aulihoxcganec 2020-07-29 10:20:00 Test Item Value Reference Range Interpretation Comments Procalcitonin (test code = 0.11 ng/mL <0.05 H 08590-0) JERONIMO (test code = JERONIMO) SEPSIS RISK (ng/mL)Low: 0.05-0.50Intermedi ate: 0.51-2.00High: >=2.01 Lab Interpretation (test Abnormal code = 58980-3) [facility]2020-[facility]-11 10:20:00 Test Item Value Reference Range Interpretation Comments PROCALCITONIN (BEAKER) (test code 0.11 ng/mL <0.05 H = 3036) SEPSIS RISK (ng/mL)Low: 0.05-0.50Intermediate: 0.51-2.00High: >=2.01Hemoglobin [id number] 09:05:00 Test Item Value Reference Range Interpretation Comments Hemoglobin A1C (test code = 4548-4) 6.6 % 4.3-6.1 H Lab Interpretation (test code = Abnormal 32400-1) [facility]HEMO[facility] [id number] 09:05:00 Test Item Value Reference Range Interpretation Comments HEMOGLOBIN A1C (BEAKER) (test code = 6.6 % 4.3-6.1 H 368) T4, [id number] 08:33:00 Test Item Value Reference Range Interpretation Comments Free T4 (test code = 0.86 ng/dL 0.7-1.48 3024-7) JERONIMO (test code = JERONIMO) Picker/Puller ID - MASHA C Lab Interpretation (test Normal code = 45328-7) [facility] HospitalT4, [id number] 08:33:00 Test Item Value Reference Range Interpretation Comments FREE T4 (BEAKER) (test code = 655) 0.86 ng/dL 0.70-1.48 Picker/Puller ID - MASHA CTSH/Free T4 If [id number] 07:37:00 Test Item Value Reference Range Interpretation Comments TSH (test code = 0.156 See_Comment L [Automated 19554-5) message] The system which generated this result transmit tyra reference range : 0.350 - 4.940 uIU/mL. The reference range was not used to interpret this result as normal/abnormal . JERONIMO (test code = JERONIMO) Picker/Puller ID - EDASI Lab Interpretation Abnormal (test code = 00595-2) [facility]FREE T4 IF [id number] 07:37:00 Test Item Value Reference Range Interpretation Comments THYROID STIMULATING HORMONE 0.156 uIU/mL 0.350-4.940 L (BEAKER) (test code = 772) Picker/Puller ID - EDASIVitamin B12 and [id number] 07:36:00 Test Item Value Reference Range Interpretation Comments Vitamin B12 (test 386 pg/mL 213-816 code = 2132-9) Folate (test code = 17.10 ng/mL See_Comment [Automa tyra 2284-8) message] The system which generated this result transmit tyra reference range : >=7.00. The reference range was not used to interpret this result as normal/abnormal . JERONIMO (test code = JERONIMO) Picker/Puller ID - EDTRACIE Lab Interpretation Normal (test code = 98890-5) [facility] HospitalVITAMIN B12 AND [id number] 07:36:00 Test Item Value Reference Range Interpretation Comments VITAMIN B12 (BEAKER) (test code = 386 pg/mL 213-816 774) FOLATE (BEAKER) (test code = 362) 17.10 ng/mL >=7.00 Picker/Puller ID - EDASILipid [id number] 07:17:00 Test Item Value Reference Range Interpretation Comments Triglycerides (test 81 mg/dL code = 2571-8) Cholesterol (test code 115 mg/dL = 2093-3) HDL (test code = 37 mg/dL 5-9) LDL Calculated (test 62 mg/dL code = 16211-0) JERONIMO (test code = JERONIMO) Triglyceride Reference Range: Low Risk <150 Borderline 150-199 High Risk 200-499 Very High Risk >=500 Cholesterol Reference Range: Low Risk <200 Borderline 200-239 High Risk >240 HDL Cholesterol Reference Range: Low Risk >=60 High Risk <40 LDL Cholesterol Reference Range: Optimal <100 Near Optimal 100-129 Borderline 130-159 High 160-189 Very High >=190 Picker/Puller ID - EDASI [facility] HospitalBASIC METABOLIC [id number] 07:17:00 Test Item Value Reference Range Interpretation Comments SODIUM (BEAKER) 145 meq/L 136-145 (test code = 381) POTASSIUM (BEAKER) 3.8 meq/L 3.5-5.1 (test code = 379) CHLORIDE (BEAKER) 102 meq/L 98-107 (test code = 382) CO2 (BEAKER) (test 29 meq/L 22-29 code = 355) BLOOD UREA NITROGEN 26 mg/dL 7-21 H (BEAKER) (test code = 354) CREATININE (BEAKER) 0.80 mg/dL 0.57-1.25 (test code = 358) GLUCOSE RANDOM 100 mg/dL 70-105 (BEAKER) (test code = 652) CALCIUM (BEAKER) 9.9 mg/dL 8.4-10.2 (test code = 697) EGFR (BEAKER) (test 95 mL/min/1.73 ESTIMA TYRA GFR IS code = 1092) sq m NOT ACCURATE CREATININE CLEARANCE IN PREDICTING GLOMERULAR FILTRATION RATE . ESTIMATED GFR I S NOT APPLICABLE FOR DIALYSIS PATIEN TS. Picker/Puller ID - [id number] 07:17:00 Test Item Value Reference Range Interpretation Comments MAGNESIUM (BEAKER) (test code = 1.9 mg/dL 1.6-2.6 627) Picker/Puller ID - [id number] 07:17:00 Test Item Value Reference Range Interpretation Comments PHOSPHORUS (BEAKER) (test code = 3.9 mg/dL 2.3-4.7 604) Picker/Puller ID - EDASILIPID [id number] 07:17:00 Test Item Value Reference Range Interpretation Comments TRIGLYCERIDES (BEAKER) (test code = 81 mg/dL 540) CHOLESTEROL (BEAKER) (test code = 115 mg/dL 631) HDL CHOLESTEROL (BEAKER) (test code 37 mg/dL = 976) LDL CHOLESTEROL CALCULATED (BEAKER) 62 mg/dL (test code = 633) Triglyceride Reference Range: Low Risk <150 Borderline 150-199 High Risk 200-499 Very High Risk >=500Cholesterol Reference Range: Low Risk <200 Borderline 200-239 High Risk >240HDL Cholesterol Reference Range: Low Risk >=60 High Risk <40LDL Cholesterol Reference Range: Optimal <100 Near Optimal 100-129 Borderline 130-159 High 160-189 Very High >=190 Picker/Puller ID - EDASICBC (HEMOGRAM ONLY)2020-07-29 06:21:00 Test Item Value Reference Range Interpretation Comments WHITE BLOOD CELL COUNT (BEAKER) 4.9 K/ L 3.5-10.5 (test code = 775) RED BLOOD CELL COUNT (BEAKER) 3.87 M/ L 4.63-6.08 L (test code = 761) HEMOGLOBIN (BEAKER) (test code = 12.2 GM/DL 13.7-17.5 L 410) HEMATOCRIT (BEAKER) (test code = 39.1 % 40.1-51.0 L 411) MEAN CORPUSCULAR VOLUME (BEAKER) 101.0 fL 79.0-92.2 H (test code = 753) MEAN CORPUSCULAR HEMOGLOBIN 31.5 pg 25.7-32.2 (BEAKER) (test code = 751) MEAN CORPUSCULAR HEMOGLOBIN CONC 31.2 GM/DL 32.3-36.5 L (BEAKER) (test code = 752) RED CELL DISTRIBUTION WIDTH 17.7 % 11.6-14.4 H (BEAKER) (test code = 412) PLATELET COUNT (BEAKER) (test 188 K/CU MM 150-450 code = 756) MEAN PLATELET VOLUME (BEAKER) 10.1 fL 9.4-12.4 (test code = 754) NUCLEATED RED BLOOD CELLS 0 /100 WBC 0-0 (BEAKER) (test code = 413) B-type Natriuretic Factor (BNP)2020-07-28 22:32:00 Test Item Value Reference Range Interpretation Comments BNP (test code = 86516-3) 1360 pg/mL 0-100 H JERONIMO (test code = JERONIMO) Picker/Puller ID - DB Lab Interpretation (test Abnormal code = 31907-6) [facility] HospitalB-[facility] NATRIURETIC FACTOR (BNP)2020-07-28 22:32:00 Test Item Value Reference Range Interpretation Comments B-TYPE NATRIURETIC PEPTIDE 1360 pg/mL 0-100 H (BEAKER) (test code = 700) Picker/Puller ID - DBComprehensive metabolic [id number] 22:27:00 Test Item Value Reference Range Interpretation Comments Protein, Total (test 6.1 See_Comment [Autom ated code = 2885-2) message] The system which generated this result transmit tyra reference range : 6.0 - 8.3 gm/dL . The reference range was not u sed to interpret th is result as normal/abnormal . Albumin (test code = 3.2 g/dL 3.5-5 L 15063-5) Alkaline Phosphatase 97 U/L 40-150 (test code = 6768-6) Total Bilirubin (test 0.9 mg/dL 0.2-1.2 code = 1974-2) Sodium (test code = 143 meq/L 486-785 1026-2) Potassium (test code 4.3 meq/L 3.5-5.1 = 2823-3) Chloride (test code = 102 meq/L 98-107 2075-0) CO2 (test code = 27 meq/L 22-29 2028-9) BUN (test code = 24 mg/dL 7-21 H 3094-0) Creatinine (test code 0.82 mg/dL 0.57-1.25 = 2160-0) Glucose (test code = 112 mg/dL 70-105 H 2345-7) Calcium (test code = 9.6 mg/dL 8.4-10.2 96564-8) AST (test code = 18 U/L 5-34 1920-8) ALT (test code = 12 U/L 6-55 1742-6) EGFR (test code = 93 mL/min/1.73 [place] [address]-0) NOT ACCURATE CREATININE CLEARANCE IN PREDICTING GLOMERULAR FILTRATION RATE . ESTIMATED GFR I S NOT APPLICABLE FOR DIALYSIS PATIEN TSCherise JERONIMO (test code = JERONIMO) Picker/Puller ID - DB Lab Interpretation Abnormal (test code = 77457-4) [facility] HospitalCOMPREHENSIVE METABOLIC [id number] 22:27:00 Test Item Value Reference Range Interpretation Comments TOTAL PROTEIN 6.1 gm/dL 6.0-8.3 (BEAKER) (test code = 770) ALBUMIN (BEAKER) 3.2 g/dL 3.5-5.0 L (test code = 1145) ALKALINE PHOSPHATASE 97 U/L 40-150 (BEAKER) (test code = 346) BILIRUBIN TOTAL 0.9 mg/dL 0.2-1.2 (BEAKER) (test code = 377) SODIUM (BEAKER) (test 143 meq/L 136-145 code = 381) POTASSIUM (BEAKER) 4.3 meq/L 3.5-5.1 (test code = 379) CHLORIDE (BEAKER) 102 meq/L 98-107 (test code = 382) CO2 (BEAKER) (test 27 meq/L 22-29 code = 355) BLOOD UREA NITROGEN 24 mg/dL 7-21 H (BEAKER) (test code = 354) CREATININE (BEAKER) 0.82 mg/dL 0.57-1.25 (test code = 358) GLUCOSE RANDOM 112 mg/dL 70-105 H (BEAKER) (test code = 652) CALCIUM (BEAKER) 9.6 mg/dL 8.4-10.2 (test code = 697) AST (SGOT) (BEAKER) 18 U/L 5-34 (test code = 353) ALT (SGPT) (BEAKER) 12 U/L 6-55 (test code = 347) EGFR (BEAKER) (test 93 mL/min/1.73 ESTIMA TYRA GFR IS code = 1092) sq m NOT ACCURATE CREATININE CLEARANCE IN PREDICTING GLOMERULAR FILTRATION RATE . ESTIMATED GFR I S NOT APPLICABLE FOR DIALYSIS PATIEN TS. Picker/Puller ID - [id number] 22:27:00 Test Item Value Reference Range Interpretation Comments MAGNESIUM (BEAKER) (test code = 1.8 mg/dL 1.6-2.6 627) Picker/Puller ID - DBCBC W/PLT COUNT & AUTO [id number] 22:13:00 Test Item Value Reference Range Interpretation Comments WHITE BLOOD CELL COUNT (BEAKER) 9.6 K/ L 3.5-10.5 (test code = 775) RED BLOOD CELL COUNT (BEAKER) 4.02 M/ L 4.63-6.08 L (test code = 761) HEMOGLOBIN (BEAKER) (test code = 12.7 GM/DL 13.7-17.5 L 410) HEMATOCRIT (BEAKER) (test code = 39.9 % 40.1-51.0 L 411) MEAN CORPUSCULAR VOLUME (BEAKER) 99.3 fL 79.0-92.2 H (test code = 753) MEAN CORPUSCULAR HEMOGLOBIN 31.6 pg 25.7-32.2 (BEAKER) (test code = 751) MEAN CORPUSCULAR HEMOGLOBIN CONC 31.8 GM/DL 32.3-36.5 L (BEAKER) (test code = 752) RED CELL DISTRIBUTION WIDTH 17.9 % 11.6-14.4 H (BEAKER) (test code = 412) PLATELET COUNT (BEAKER) (test 188 K/CU MM 150-450 code = 756) MEAN PLATELET VOLUME (BEAKER) 10.2 fL 9.4-12.4 (test code = 754) NUCLEATED RED BLOOD CELLS 0 /100 WBC 0-0 (BEAKER) (test code = 413) NEUTROPHILS RELATIVE PERCENT 96 % (BEAKER) (test code = 429) LYMPHOCYTES RELATIVE PERCENT 2 % (BEAKER) (test code = 430) MONOCYTES RELATIVE PERCENT 1 % (BEAKER) (test code = 431) EOSINOPHILS RELATIVE PERCENT 0 % (BEAKER) (test code = 432) BASOPHILS RELATIVE PERCENT 0 % (BEAKER) (test code = 437) NEUTROPHILS ABSOLUTE COUNT 9.19 K/ L 1.78-5.38 H (BEAKER) (test code = 670) LYMPHOCYTES ABSOLUTE COUNT 0.23 K/ L 1.32-3.57 L (BEAKER) (test code = 414) MONOCYTES ABSOLUTE COUNT (BEAKER) 0.11 K/ L 0.30-0.82 L (test code = 415) EOSINOPHILS ABSOLUTE COUNT 0.00 K/ L 0.04-0.54 L (BEAKER) (test code = 416) BASOPHILS ABSOLUTE COUNT (BEAKER) 0.01 K/ L 0.01-0.08 (test code = 417) IMMATURE GRANULOCYTES-RELATIVE 0 % 0-1 PERCENT (BEAKER) (test code = 2801) RAD, CHEST, 1 VIEW, NON [id number] 20:27:00Reason for exam:->SOBShould this be performed at the bedside?->Yes [facility] [place] : 1950 Sex: MFINAL REPORT TECHNIQUE: Frontal view of the chest. INDICATION: SOB COMPARISON: 10/16/2015. FINDINGS: LINES/TUBES: None. LUNGS: There are consolidative opacities in thebilateral upper lobes. PLEURA: Small bilateral pleural effusions. No pneumothorax.. HEART AND MEDIASTINUM: The cardiomediastinal silhouette is stable. Status post median sternotomy. Multiple sternotomywires are fractured.. SOFT TISSUES AND BONES: Unremarkable. IMPRESSION:Consolidative opacities in the bilateral upper lobes concerning for pneumonia. Follow-up to resolution is recommended to exclude underlying mass. Small bilateral pleural effusions. Status post median sternotomy. Multiple sternotomy wires are fractured.. Signed: Ramos Polanco MDReport Verified Date/Time: 07/28/2020 20:27:11 Reading Location: [facility] B1 [id number] Consult Reading Room
[2020-10-12 12:32] LABS: Absolute Lymphocytes (CBC) 0.4 K/uL (0.7-4.9); Basophils % 0.4 % (0-1.3); Hematocrit 38.5 % (39.6-49.0); Lymphocytes % 3.5 % (15.3-44.8); MPV 9.4 fL (7.6-11.3); RBC Red Blood Cell Count 3.88 M/uL (4.33-5.43)
--- NOTE | 2020-10-12 12:44 | RAD REPORT ---
EXAM DESCRIPTION: CT - Abdomen Pelvis W Contrast - 10/12/2020 12:28 pm CLINICAL HISTORY: Abdominal pain COMPARISON: 2019 TECHNIQUE: Computed axial tomography of the abdomen pelvis was obtained. 100 cc Isovue-300 was admin istered intravenously. Oral contrast was not requested which limits evaluation of bowel. All CT scans are performed using dose optimization technique as appropriate and may include automated exposure control or mA/KV adjustment according to patient size. FINDINGS: Moderate to marked thrombus is present within the abdominal aorta. Some of it is calcified . There is significant narrowing of the opacified lumen. 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 A stent is present within the right external iliac artery. Small right and tiny left pleural effusions. Cholelithiasis The liver, spleen, pancreas, and adrenals appear unremarkable. Small renal cysts. Small right inguinal hernia contains fluid Wall of the proximal ascending colon is mildly thickened. Colon caliber is upper limits normal Small amount of ascites IMPRESSION: Moderate to marked thrombus is present within the abdominal aorta. Some of it is calcifi ed. There is significant narrowing of the opacified lumen Mild thickening of the wall of the proximal ascending colon may indicate a mild colitis Cholelithiasis
[2020-10-12] MEDS ORDERED: LEVALBUTEROL 1.25 MG/3 ML NEB ONE (12:49)
[2020-10-12] MEDS ORDERED: NA CHLORIDE 0.9% 500 ML ONE ×2 (12:49→15:51)
[2020-10-12] MEDS ORDERED: METHYLPREDNISOLONE 125 MG INJ ONE (12:49)
[2020-10-12 12:54] LABS: Albumin 2.4 g/dL (3.4-5.0); Bilirubin Direct 0.2 mg/dL (0-0.2); Bilirubin Total 0.5 mg/dL (0.2-1.0); Potassium 3.6 mmol/L (3.5-5.1); Protein, Total 5.7 g/dL (6.4-8.2)
--- NOTE | 2020-10-12 13:23 | RAD REPORT ---
EXAM DESCRIPTION: RAD - Chest Single View - 10/12/2020 1:15 pm CLINICAL HISTORY: Cough;COPD;Dyspnea Chest pain. COMPARISON: Chest Pa And Lat (2 Views) dated 10/03/2020; Chest Single View dated 09/29/2020; Chest Pa And Lat (2 Views) dated 06/27/2020; Chest Single View dated 10/16/2019 FINDINGS: Portable technique limits examination quality. Emphysematous changes with large bullae in the left upper lobe. Cavitary lesion in the right upper lo be laterally is unchanged. Mild reduction in the size of the pleural effusions noted. The heart is mi ldly enlarged in size with changes of a prior CABG.
[2020-10-12 13:39] LABS: Blood Morphology Comment NOT SEEN (NOT SEEN); Platelet Estimate DECR; White Blood Cell Scan OK (OK)
--- NOTE | 2020-10-12 14:38 | ER ---
Nurse's Notes [facility] Name: Javed Sams Age: 70 yrs Sex: Male : 1950 Arrival Date: 10/12/2020 Time: 11:44 Bed 16 Private MD: Diagnosis: Colitis;Dehydration;Chronic obstructive pulmonary disease, unspecified;Aortic Thrombus Presentation: 10/12 11:44 Chief complaint: EMS states: pt reported nausea/vomiting over the last 2-3 days and aa5 SOB. Pt was recently admitted and d/c'd home from hospital with Pneumonia on home oxygen. EMS reports giving Reglan 10mg IVP, NS 400cc bolus, 20G R FA noted, FSBG 125 per EMS. Negative COVID-19 test on 09/29/20. 11:44 Acuity: LÓPEZ 3 aa5 11:44 Method Of Arrival: Ambulatory aa5 11:44 Coronavirus screen: The client reports previous COVID testing was negative. Date of aa5 collection: September 29, 2020. Ebola Screen: Patient negative for fever greater than or equal to 101.5 degrees Fahrenheit, and additional compatible Ebola Virus Disease symptoms. Initial Sepsis Screen: Does the patient meet any 2 criteria? HR > 90 bpm. Does the patient have a suspected source of infection? Yes:. Risk Assessment: Do you want to hurt yourself or someone else? Patient reports no desire to harm self or others. Onset of symptoms was September 2020. Historical: - Allergies: 11:44 NKA; aa5 - PMHx: 11:44 COPD; GI Bleed; High Cholesterol; Hypertension; Hypothyroidism; aa5 - Immunization history:: Adult Immunizations unknown. - Social history:: Smoking status: unknown. - Family history:: not pertinent. - Hospitalizations: : No recent hospitalization is reported. Screenin:49 Abuse screen: Denies threats or abuse. Nutritional screening: No deficits noted. jd3 Tuberculosis screening: No symptoms or risk factors identified. Fall Risk IV access (20 points). Ambulatory Aid- None/Bed Rest/Nurse Assist (0 pts). Gait- Weak (10 pts.). Mental Status- Oriented to own ability (0 pts). Total Rose Fall Scale indicates Low Risk Score (25-44 pts). Fall prevention measures have been instituted. Side Rails Up X 2 Placed close to Nursing Station Frequent Obs/Assesments occuring Family Present and informed to notify staff if they need to leave bedside. Assessment: 12:45 General: Appears in no apparent distress. uncomfortable, Behavior is calm, cooperative, jd3 appropriate for age. Pain: Complains of pain in abdomen Quality of pain is described as aching. Neuro: Level of Consciousness is awake, alert, obeys commands, Oriented to person, place, time, situation. Cardiovascular: Denies chest pain, Capillary refill < 3 seconds Patient's skin is warm and dry. Respiratory: Reports shortness of breath on exertion Airway is patent Respiratory effort is even, unlabored, Respiratory pattern is regular, symmetrical. GI: Abdomen is round non-distended, Reports nausea. : No signs and/or symptoms were reported regarding the genitourinary system. EENT: No signs and/or symptoms were reported regarding the EENT system. Derm: Skin is intact, Skin is dry, Skin is normal, Skin temperature is warm. Musculoskeletal: Circulation, motion, and sensation intact. Range of motion: intact in all extremities. 14:04 Reassessment: No changes from previously documented assessment. Patient and/or family jd3 updated on plan of care and expected duration. Pain level reassessed. Patient is alert, oriented x 3, equal unlabored respirations, skin warm/dry/pink. 16:22 Reassessment: Patient appears in no apparent distress at this time. Patient and/or jd3 family updated on plan of care and expected duration. Pain level reassessed. Patient is alert, oriented x 3, equal unlabored respirations, skin warm/dry/pink. Patient states feeling better. 17:26 Reassessment: Patient appears in no apparent distress at this time. Patient and/or jd3 family updated on plan of care and expected duration. Pain level reassessed. Patient is alert, oriented x 3, equal unlabored respirations, skin warm/dry/pink. 18:03 Reassessment: report given to Kristen WATTS at Replaced by [facility]. jd3 18:29 Reassessment: Patient appears in no apparent distress at this time. Patient and/or jd3 family updated on plan of care and expected duration. Pain level reassessed. Patient is alert, oriented x 3, equal unlabored respirations, skin warm/dry/pink. awaiting EMS for transfer. 18:39 Reassessment: report given to EMS. jd3 Vital Signs: 11:44 BP 116 / 74; Pulse 106; Resp 18 S; Temp 98.7(O); Pulse Ox 100% on R/A; aa5 12:48 BP 113 / 61; Pulse 59; Resp 17 S; Pulse Ox 100% on 2 lpm NC; jd3 14:04 BP 106 / 57; Pulse 59; Resp 18 S; Pulse Ox 100% on 2 lpm NC; jd3 16:23 Pulse 53; Resp 19 S; Pulse Ox 99% on 2 lpm NC; jd3 17:26 Pulse 58; Resp 17 S; Pulse Ox 98% on 2 lpm NC; jd3 17:57 BP 101 / 63; Pulse 68; Resp 17 S; Pulse Ox 100% on 2 lpm NC; jd3 18:28 BP 95 / 76; Pulse 63; Resp 17 S; Pulse Ox 99% on 2 lpm NC; jd3 ED Course: 11:44 Patient arrived in ED. jd3 11:44 Arm band placed on Patient placed in an exam room, on a stretcher. aa5 11:48 Triage completed. aa5 11:55 Ki Werner MD is Attending Physician. rn 12:07 Kartik Thakkar RN is Primary Nurse. jd3 12:28 CT Abd/Pelvis - IV Contrast Only In Process Unspecified. EDMS 12:49 Patient has correct armband on for positive identification. Bed in low position. Call jd3 light in reach. Side rails up X2. Pulse ox on. NIBP on. 13:15 XRAY Chest (1 view) In Process Unspecified. EDMS 14:36 Jarret Kasper MD is Hospitalizing Provider. rn 18:40 No provider procedures requiring assistance completed. Patient transferred, IV remains jd3 in place. Maintain EMS IV. Dressing intact. Good blood return noted. Site clean \T\ dry. Gauge \T\ site: 20 G right FA. Administered Medications: 12:44 Drug: SOLU-Medrol 125 mg Route: IVP; Site: right forearm; jd3 13:40 Follow up: Response: No adverse reaction jd3 12:44 Drug: Xopenex (3) 1.25 mg Route: Inhalation; jd3 13:40 Follow up: Response: No adverse reaction jd3 12:44 Drug: NS 0.9% 500 ml Route: IV; Rate: bolus; Site: right forearm; jd3 13:40 Follow up: Response: No adverse reaction; IV Status: Completed infusion; IV Intake: jd3 500ml 15:01 Drug: Flagyl 500 mg Volume: 100 ml; Route: IVPB; Rate: 200 ml/hr; Infused Over: 30 jd3 mins; Site: right forearm; 16:00 Follow up: Response: No adverse reaction; IV Status: Completed infusion jd3 16:05 Drug: Cipro 400 mg Volume: 200 ml; Route: IVPB; Infused Over: 60 mins; Site: right jd3 forearm; 17:00 Follow up: Response: No adverse reaction; IV Status: Completed infusion jd3 16:05 Drug: NS 0.9% 500 ml Route: IV; Rate: bolus; Site: right forearm; jd3 17:00 Follow up: Response: No adverse reaction; IV Status: Completed infusion; IV Intake: jd3 500ml Intake: 13:40 IV: 500ml; Total: 500ml. jd3 17:00 IV: 500ml; Total: 1000ml. jd3 Outcome: 14:36 Decision to Hospitalize by Provider. rn 16:59 ER care complete, transfer ordered by MD. rn 18:41 Transferred by ground EMS to [facility], Transfer form completed. jd3 X-rays sent w/ patient. 18:41 Condition: stable 18:41 Instructed on the need for transfer, Demonstrated understanding of instructions. 18:42 Patient left the ED. jd3 Signatures: Dispatcher [employer] EDMS Ki Werner MD MD rn Calderon, Audri, RN RN aa5 Kartik Thakkar RN RN jd3 Corrections: (The following items were deleted from the chart) 11:49 11:44 Chief complaint: EMS states: pt reported nausea/vomiting over the last 2-3 days aa5 and SOB. Pt was recently admitted and d/c'd home from hospital with Pneumonia on home oxygen. EMS reports giving Reglan 10mg IVP, NS 400cc bolus, 20G R FA noted, FSBG 125 per EMS. aa5 11:51 11:44 Chief complaint: EMS states: pt reported nausea/vomiting over the last 2-3 days aa5 and SOB. Pt was recently admitted and d/c'd home from hospital with Pneumonia on home oxygen. EMS reports giving Reglan 10mg IVP, NS 400cc bolus, 20G R FA noted, FSBG 125 per EMS. aa5 16:24 12:48 BP 113 / 61; Pulse 59bpm; Resp 17bpm; Spontaneous; Pulse Ox 100% RA; jd3 jd3 16:24 14:04 BP 106 / 57; Pulse 59bpm; Resp 18bpm; Spontaneous; Pulse Ox 100% RA; jd3 jd3 18:29 17:26 Pulse 58bpm; Resp 17bpm; Spontaneous; Pulse Ox 98% RA; jd3 jd3 18:29 17:57 BP 101 / 63; Pulse 68bpm; Resp 17bpm; Spontaneous; Pulse Ox 100% RA; jd3 jd3
--- NOTE | 2020-10-12 14:38 | EDPHYS ---
Physician Documentation [facility] Name: Javed Sams Age: 70 yrs Sex: Male : 1950 Arrival Date: 10/12/2020 Time: 11:44 Bed 16 Private MD: ED Physician Ki Werner HPI: 10/12 12:59 This 70 yrs old Male presents to ER via Ambulatory with complaints of rn Nausea/Vomiting. 12:59 The patient presents to the emergency department with nausea, vomiting, abdominal pain. rn Onset: The symptoms/episode began/occurred 2 day(s) ago. Possible causes: unknown. The symptoms are aggravated by nothing. The symptoms are alleviated by nothing. Associated signs and symptoms: Pertinent positives: abdominal pain, nausea, vomiting, Pertinent negatives: diarrhea, fever, GI bleeding. Severity of symptoms: At their worst the symptoms were mild in the emergency department the symptoms are unchanged. It is unknown whether or not the patient has had similar symptoms in the past. The patient has been recently seen by a physician:. Reports recently admitted for pneumonia, now presents with 2 days of sob, nausea/vomiting/abd pain. No blood in emesis or stool. Reports generalized weakness. . Historical: - Allergies: 11:44 NKA; aa5 - PMHx: 11:44 COPD; GI Bleed; High Cholesterol; Hypertension; Hypothyroidism; aa5 - Immunization history:: Adult Immunizations unknown. - Social history:: Smoking status: unknown. - Family history:: not pertinent. - Hospitalizations: : No recent hospitalization is reported. ROS: 12:59 Constitutional: Negative for fever, chills, and weight loss, Eyes: Negative for injury, rn pain, redness, and discharge, Neck: Negative for injury, pain, and swelling, Cardiovascular: Negative for chest pain, palpitations, and edema, Respiratory: Negative for wheezing, and pleuritic chest pain, Abdomen/GI: Negative for diarrhea, and constipation, MS/Extremity: Negative for injury and deformity, Skin: Negative for injury, rash, and discoloration, Neuro: Negative for headache, numbness, tingling, and seizure. Exam: 12:59 Constitutional: This is a well developed, well nourished patient who is awake, alert, rn and in no acute distress. Head/Face: Normocephalic, atraumatic. ENT: dry MM, no stridor Cardiovascular: Regular rate and rhythm. No pulse deficits. Respiratory: No increased work of breathing, no retractions or nasal flaring. Abdomen/GI: Mild diffuse abd tenderness, no distension or masses Skin: Warm, dry with normal turgor. Normal color with no rashes, no lesions, and no evidence of cellulitis. MS/ Extremity: No cyanosis or mottling. Neuro: Awake and alert, GCS 15 Vital Signs: 11:44 BP 116 / 74; Pulse 106; Resp 18 S; Temp 98.7(O); Pulse Ox 100% on R/A; aa5 12:48 BP 113 / 61; Pulse 59; Resp 17 S; Pulse Ox 100% on 2 lpm NC; jd3 14:04 BP 106 / 57; Pulse 59; Resp 18 S; Pulse Ox 100% on 2 lpm NC; jd3 16:23 Pulse 53; Resp 19 S; Pulse Ox 99% on 2 lpm NC; jd3 17:26 Pulse 58; Resp 17 S; Pulse Ox 98% on 2 lpm NC; jd3 17:57 BP 101 / 63; Pulse 68; Resp 17 S; Pulse Ox 100% on 2 lpm NC; jd3 18:28 BP 95 / 76; Pulse 63; Resp 17 S; Pulse Ox 99% on 2 lpm NC; jd3 MDM: 11:55 Patient medically screened. rn 13:44 Differential diagnosis: Nonspecific abd pain, viral gastroenteritis, gastroenteritis, rn colitis, dehydration. Data reviewed: vital signs, nurses notes, lab test result(s), radiologic studies, CT scan, plain films, and as a result, I will admit patient. Counseling: I had a detailed discussion with the patient and/or guardian regarding: the historical points, exam findings, and any diagnostic results supporting the discharge/admit diagnosis, lab results, radiology results, the need for further work-up and treatment in the hospital. Response to treatment: the patient's symptoms have mildly improved after treatment, and as a result, I will admit patient. Admission orders: after a detailed discussion of the patient's condition and case, the admit orders are written by me. Special discussion:. ED course: Pt with signs of colitis on CT scan, chronic aortic changes. . 10/12 12:05 Order name: Basic Metabolic Panel; Complete Time: 13:29 rn 10/12 12:05 Order name: CBC with Diff; Complete Time: 13:40 rn 10/12 12:05 Order name: Hepatic Function; Complete Time: 13:29 rn 10/12 12:05 Order name: Lipase; Complete Time: 13:29 rn 10/12 12:05 Order name: Procalcitonin; Complete Time: 13:29 rn 10/12 12:05 Order name: Lactate; Complete Time: 13:29 rn 10/12 12:05 Order name: CT Abd/Pelvis - IV Contrast Only; Complete Time: 13:29 rn 10/12 12:05 Order name: Blood Culture Adult (2) rn 10/12 12:05 Order name: BNP; Complete Time: 13:29 rn 10/12 12:39 Order name: CBC Smear Scan; Complete Time: 13:40 EDMS 10/12 17:41 Order name: SARS-COV-2 RT PCR EDMS 10/12 12:05 Order name: IV Saline Lock; Complete Time: 12:28 rn 10/12 12:05 Order name: Labs collected and sent; Complete Time: 12: rn 10/12 12:05 Order name: XRAY Chest (1 view); Complete Time: 13:29 rn Administered Medications: 12:44 Drug: SOLU-Medrol 125 mg Route: IVP; Site: right forearm; jd3 13:40 Follow up: Response: No adverse reaction jd3 12:44 Drug: Xopenex (3) 1.25 mg Route: Inhalation; jd3 13:40 Follow up: Response: No adverse reaction jd3 12:44 Drug: NS 0.9% 500 ml Route: IV; Rate: bolus; Site: right forearm; jd3 13:40 Follow up: Response: No adverse reaction; IV Status: Completed infusion; IV Intake: jd3 500ml 15:01 Drug: Flagyl 500 mg Volume: 100 ml; Route: IVPB; Rate: 200 ml/hr; Infused Over: 30 jd3 mins; Site: right forearm; 16:00 Follow up: Response: No adverse reaction; IV Status: Completed infusion jd3 16:05 Drug: Cipro 400 mg Volume: 200 ml; Route: IVPB; Infused Over: 60 mins; Site: right jd3 forearm; 17:00 Follow up: Response: No adverse reaction; IV Status: Completed infusion jd3 16:05 Drug: NS 0.9% 500 ml Route: IV; Rate: bolus; Site: right forearm; jd3 17:00 Follow up: Response: No adverse reaction; IV Status: Completed infusion; IV Intake: jd3 500ml Disposition: 10/12/20 16:59 Transfer ordered to [facility]. Diagnosis are Colitis, Dehydration, Chronic obstructive pulmonary disease, unspecified, Aortic Thrombus. - Reason for transfer: Higher level of care. - Accepting physician is Dr. Stephens. - Condition is Stable. - Problem is new. - Symptoms have improved. Signatures: Dispatcher [employer] EDLA Ki Werner MD MD rn Calderon, Audri RN RN aa5 Kartik Thakkar RN RN jd3 Corrections: (The following items were deleted from the chart) 16:46 12:59 Constitutional: This is a well developed, well nourished patient who is awake, rn alert, and in no acute distress. Head/Face: Normocephalic, atraumatic. ENT: dry MM, no stridor Cardiovascular: Regular rate and rhythm. No pulse deficits. Respiratory: No increased work of breathing, no retractions or nasal flaring. Abdomen/GI: Mild diffuse abd tenderness, no distension or masses Skin: Warm, dry with normal turgor. Normal color with no rashes, no lesions, and no evidence of cellulitis. MS/ Extremity: Pulses equal, no cyanosis. Neurovascular intact. Full, normal range of motion. Equal circumference. Neuro: Awake and alert, GCS 15 rn 16:54 16:12 CORONAVIRUS ordered. EDLA EDLA 16:58 14:36 Hospitalization Ordered by Jarret Kasper MD for Inpatient Admission. Preliminary rn diagnosis is Colitis; Dehydration; Chronic obstructive pulmonary disease with (acute) exacerbation. Bed requested for Telemetry/MedSurg (Inpatient). Status is Inpatient Admission. Condition is Stable. Problem is new. Symptoms have improved. rn 18:42 16:59 10/12/2020 16:59 Transfer ordered to [facility]. jd3 Diagnosis is Colitis; Dehydration; Chronic obstructive pulmonary disease, unspecified; Aortic Thrombus. Reason for transfer: Higher level of care. Accepting physician is Dr. Stephens. Condition is Stable. Problem is new. Symptoms have improved. rn
[2020-10-12] MEDS ORDERED: METRONIDAZOLE 500mg IVPB 500 MG/100 ML BAG IV ONE (14:53)
[2020-10-12] MEDS ORDERED: CIPROFLOXACIN 400mg IV 400 MG/200 ML BAG IV ONE (14:53)
--- NOTE | 2020-10-12 15:03 | P.PN ---
Date of Service: 10/12/20 Brief History of Present Illness: 70-year-old male with COPD, CHF, chronic afib on anticoagulation, hypothyroidism, GERD, CAD, PVD, and HLD presents today with worsening dyspnea, nausea and abdominal pain. He was recently discharged on 10/07 with diagnosis of right loculated pleural effusion, COPD exacerbation and possible pneumonia. He reports mid lower quadrant constant abdominal pain only improved with lying on his side. He denies diarrhea. His dyspnea persists and has worsened. He felt similar symptoms on his recent admission. Symptoms improve with rest and breathing treatments, and are worse when lying flat. He reports wheezing at night and coughing without sputum. He continues to use 2L of O2 at home. He is on day 5 of his 7 day antibiotic course. He took Levaquin 750mg this morning but did not take the prescribed doxycycline 100mg BID. 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 Former smoker. Code Status: DNI, but wants CPR PCP: Bernardo #nausea and abdominal pain, CT scan revealing mild colitis -Zofran PRN -Fecal leukocytes and stool culture, C diff toxin ordered -Slight elevation in WBC count, but has been taking steroids since discharge -Received Cipro and metronidazole in the ER, consider Zosyn #Dyspnea 2/2 small pleural effusions complicated by right upper lobe PNA and COPD -pulm consult -continue antibiotic course of Levaquin 750 and doxy 100 BID (patient is on day 5 of 7 day course) - continue with prednisone 20 mg 1 pill twice daily for 7 days then 1 pill once daily for 7 days (patient is on day 5 of first 7 day course) #afib on chronic anticoagulation therapy -Continue with Eliquis as prescribed #CHF -BNP 4196 -continue Lasix -daily weights, continue to monitor #HTN -Continue with home medications #hypothyroidism -Continue with levothyroxine 75 mcg daily #GERD -Continue with protonix 40mg BID #CAD -Continue aspirin 81 mg daily, Eliquis 5 mg 1 pill twice daily, metoprolol 25 mg daily, Entresto one pill twice daily, Lipitor 80 mg daily, and Lasix 40 mg 1 pill twice daily #PVD -Continue with ASA and Plavix as prescribed -No intervention per cardiology on last admission but will consult #COPD -continue Brovana 1 unit twice daily and albuterol 1 unit 3x daily PRN -continue O2 levels to maintain sats above 93% -received breathing treatment and steroids in the ER
[2020-10-12 20:10] VITALS: TEMP 98.7
[2020-10-12 20:18] VITALS: BP 95/76; O2SAT 99
== END 2020-10-12 18:42 | disposition short-term general hospital (02) ==
LOC: ER 11:37
DX: K52.9 Noninfective gastroenteritis and colitis, unspecified (principal); E86.0 Dehydration; I74.10 Embolism and thrombosis of unspecified parts of aorta; E03.9 Hypothyroidism, unspecified; E78.00 Pure hypercholesterolemia, unspecified; I11.0 Hypertensive heart disease with heart failure; I50.9 Heart failure, unspecified; Z20.822 Contact with and (suspected) exposure to COVID-19; I48.20 Chronic atrial fibrillation, unspecified; Z79.01 Long term (current) use of anticoagulants; K21.9 Gastro-esophageal reflux disease without esophagitis; I25.10 Atherosclerotic heart disease of native coronary artery without angina pectoris; I73.9 Peripheral vascular disease, unspecified; Z87.891 Personal history of nicotine dependence; J44.0 Chronic obstructive pulmonary disease with (acute) lower respiratory infection; J18.9 Pneumonia, unspecified organism; Z99.81 Dependence on supplemental oxygen; Z66 Do not resuscitate
CPT/HCPCS: 96365; 96367; 96361; 87040 ×2; 85025; 80048; 36415; 82565; 80076; 83605; 83690; 84145; 83880; 74177; 71045; 96375; 99285; U0003; Q9967; J7040 ×2; J2930; J0744

== ENCOUNTER 2020-10-30 17:11 | Emergency (ER) | payer OTHER ==
--- OUTSIDE RECORDS SUMMARY | 2020-10-30 17:17 | XMS REPORT | Continuity of Care Document ---
:1950 Author Organization [facility] t Address [facility] [place] [address] Care Team Providers Name Role Phone Steve Mendez MD Primary Care Physician Mansoor GUERRA Attending Clinician Luis GUERRA Attending Clinician Ysabel GUERRA, P. Attending Clinician Carlota Croft MD Attending Clinician Young Arredondo MD Attending Clinician Yuridia Esquivel MD Attending Clinician [phone] Sanjiv Lantigua MD Attending Clinician Stpeh Amezcua CRNA Attending Clinician Loretta Ryenoso MD Attending Clinician Hira GUERRA Attending Clinician MANSOOR Attending Clinician Unavailable Weston GUERRA Attending Clinician Elie OZUNA Attending Clinician Jocelyne WATTS Attending Clinician Unavailable Apoorva Spann MD Attending Clinician Andrez Ramos MD Attending Clinician LUIS Admitting Clinician Unavailable APOORVA SPANN Admitting Clinician Unavailable Payers Payer Name Policy Type Policy Effective Date Expiration Date Sour ce Number MEDICAREMEDICARE A [id number] 2014 HENRRY Hillman [id number] 2013- 00:00:00 - Medical PresentMedicare Center VAZQUEZ [id number] 2014 HENRRY Gavin MEDICAIDMEDICAID 00:00:00 - Medica l [id number] Ce nter 14-Present MEDICAIDMEDICAID [id number] HENRRY Hillman [id number] 00:00:00 - Medical -PresentMedicaid Center Problems Condition Condition Condition Status Onset Resolution Last Treating Co mments Source Name Details Category Date Date Treatment Clinician Date History of History of Disease Active [facility] implantabl implantabl 3-10 Ashley kes - e e 00:00: Medical cardiovert cardiovert 00 Ce nter er-defibri er-defibri llator llator (ICD) (ICD) placement placement Urinary Urinary Disease Active [facility] retention retention 3-10 [facility] - due to due to 00:00: Medical benign benign 00 Center prostatic prostatic hyperplasi hyperplasi a a [place] Disease Active [facility] catheter catheter 3-10 [facility] - in place in place 00:00: Medica l 00 Center Peripheral Peripheral Disease Active [facility] vascular vascular 3-10 [facility] - disease, disease, 00:00: Medica l unspecifie unspecifie 00 Ce nter d d Acute Acute Disease Active 2019-[address] [facility] [...] tive pain 00:00: Medi beverly 00 Center CAD CAD Disease Active [facility] (coronary [...] dism 2-17 [facility] - 00:00: Medical 00 [place] 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 2-17 [facility] - carotid carotid 00:00: Medical artery artery 00 Center Ischemic Ischemic Disease Resolve 2020-10-26 2020-10-[address] [facility] colitis colitis d 3-10 00:00:00 14:26:46 [facility] - 00:00: Medical 00 Center Aortic Aortic Disease Resolve 2020-10-26 2020-10-[address] [facility] [address] thrombus thrombus d 2-24 00:00:00 14:25:24 Ashley kes - 00:00: Medical 00 Center Acute Acute Disease Resolve 2020-10-26 2020-10-[address] [facility] [address] respirator respirator d 2-24 00:00:00 14:26:27 [facility] - y y 00:00: Medical insufficie insufficie 00 Ce nter ncy, ncy, postoperat postoperat gordy gordy Postoperat Postoperat Disease Resolve 2015-2020-10-26 2020-10-26 HENRRY Belle gordy anemia gordy anemia d 2- 00:00:00 14:26:26 [facility] - due to due to 00:00: Medical acute acute Center blood loss blood loss Allergies, Adverse Reactions, Alerts Allergy Allergy Status Severity Reaction(s) Onset Inactive Treating Comm ents Source Name Type Date Date Clinician Doxylami Drug Active Other (See 2019-08 Patient HENRRY Belle n-Pse-Dm Intolera Comments) 2- states he [facility] - -Acetami nce 00:00: gets Medical nophen 00 nervous Center Morphine Adverse Active Info Not [facility] Sulfate Reaction Available [facility] Family History Family Member Diagnosis Comments Start Date Stop Date Source Natural brother Heart disease [facility] Natural mother Heart disease [facility] Social History Social Habit Start Date Stop Date Quantity Comments Source Sex Assigned At [facility] Exposure to Not sure [facility] - SARS-CoV-2 (event) Medica [facility] Cigarettes smoked 2020-10-17 2020-10-17 [facility] - current (pack per 00:00:00 00:00:00 [facility] Center day) - Reported Cigarette 2020-10-17 2020-10-17 [facility] - pack-years 00:00:00 00:00:00 [facility] Tobacco use and 2020-10-17 2020-10-17 Never used [facility] - exposure 00:00:00 00:00:00 [facility] Alcohol intake 2020-10-17 2020-10-17 Current drinker [facility] S t [facility] - 00:00:00 00:00:00 of alcohol [facility] (finding) Alcohol Comment 2015-10-05 2015-10-05 2 dailly [facility] - 00:00:00 00:00:00 [facility] Smoking Status Start Date Stop Date Source Current every day smoker 2020-10-17 00:00:00 [facility] Medications Ordered Filled Start Stop Current Ordering Indication Dosage Frequency Signature Comments Components Source Medication Medication Date Date Medication? Clinician (SIG) Name Name tamsulosin Yes .8mg QD Take 2 [facility] (FLOMAX) 3-11 capsules [facility] - 0.4 mg Cap 00:00: (0.8 mg Medi beverly 24 hr 00 total) by Center capsule mouth daily. atorvastati 2021- Yes 40mg QD Take [address] [facility] n (LIPITOR) 10-27 tablet (40 L ukes - 40 MG 00:00: 23:59 mg total) Medica l tablet 00 :00 by mouth Center daily. clopidogreL 2021- Yes 75mg QD Take [address] [facility] (PLAVIX) 75 10-27 tablet (75 L ukes - mg tablet 00:00: 23:59 mg total) Me dical 00 :00 by mouth Center daily. finasteride 2021- Yes 5mg QD Take [address] [facility] (PROSCAR) 5 10-27 tablet (5 Ashley kes - mg tablet 00:00: 23:59 mg total) Me dical 00 :00 by mouth Center daily. losartan 2021- Yes 25mg QD Take [address] [facility] (COZAAR) 25 10-27 tablet (25 L ukes - MG tablet 00:00: 23:59 mg total) Me dical 00 :00 by mouth Center daily. multivitami 2021- Yes 1{tbl} QD Take [address] n 10-27 tablet by [facility] - (THERAGRAN) 00:00: 23:59 mouth Medi beverly tablet 00 :00 daily. Center thiamine 2021- Yes 100mg QD Take 1 [facility] 100 MG 10-27 tablet [facility] - tablet 00:00: 23:59 (100 mg Medical 00 :00 total) by Center mouth daily. levothyroxi 2021- Yes 75ug Take [address] [facility] ne 10-27 tablet (75 [facility] - (SYNTHROID, 00:00: 23:59 mcg total) Medical LEVOTHROID) 00 :00 by mouth Cent er 75 MCG Every tablet morning on an empty stomach. predniSONE 2020- Yes 40mg QD Take [address] [facility] (DELTASONE) 10-27-16 tablets Luke s - 20 MG 00:00: 23:59 (40 mg Medical tablet 00 :00 total) by Center mouth daily for 5 days. cinacalcet 2020- No 30mg Take [address] [facility] (SENSIPAR) 3-11 03-10 tablet (30 Ashley kes - 30 MG 00:00: 00:00 mg total) Medica l tablet 00 :00 by mouth Center daily with breakfast for 90 days. levothyroxi 2020- No 75ug Take [address] [facility] ne 3-11 03-10 tablet (75 [facility] - (SYNTHROID, 00:00: 00:00 mcg total) Medical LEVOTHROID) 00 :00 by mouth Cent er 75 MCG Every tablet morning on an empty stomach. allopurinol Yes 100mg QD Take [address] (ZYLOPRIM) 3-10 mg by [facility] - 100 MG 19:31: mouth Medical tablet 06 daily. [place] albuterol 2020- No 1{puff} Inhale [address] [facility] HFA 3-10 03-10 puff by Ashleykes - (VENTOLIN 14:23: 00:00 mouth via Me dical HFA) 90 49 :00 inhaler [place] mcg/actuati every 6 on inhaler (six) hours as needed for Wheezing. nicotine 2020- No 1{patch Q24H Place [address] (NICODERM 3-10 03-10 } patch onto Vinay es - CQ) 14 14:23: 00:00 the skin Medica l mg/24 hr 49 :00 daily. [place] patch apixaban 2020- No 1{tbl} Q.5D Take [address] [facility] (Eliquis) 5 3-10 03-10 tablet by Ashley kes - mg Tab 14:23: 00:00 mouth 2 Medical tablet 49 :00 (two) Center times daily. aspirin 81 2020- No 1{tbl} QD Take [address] MG EC 3-10 03-10 tablet by [facility] - tablet 14:23: 00:00 mouth Medical 49 :00 daily. [place] arformotero 2020- No 1{ampul Q.5D Take [address] [facility] L (BROVANA) 3-10 03-10 e} ampule by Ashley kes - 15 mcg/2 mL 14:23: 00:00 nebulizati Medical nebulizer 49 :00 on 2 (two) Cent er solution times daily. atorvastati 2020- No 1{tbl} QD Take [address] n (Lipitor) 3-10 03-10 tablet by Ashlye kes - 40 MG 14:23: 00:00 mouth Medical tablet 49 :00 daily. Center albuterol 2020-2020- No 2{puff} Inhale [address] [facility] HFA 3-10 03-10 puffs by [facility] - (VENTOLIN 14:23: 00:00 mouth via Me dical HFA) 90 49 :00 inhaler Center mcg/actuati every 6 on inhaler (six) hours as needed. arformotero Yes 15ug Q.5D Take [address] L (BROVANA) 3-10 (15 mcg [facility] - 15 mcg/2 mL 00:00: total) by edical nebulizer 00 nebulizati Cent er solution on 2 (two) times daily. melatonin 3 Yes 3mg Take [address] [facility] mg Tab 3-10 tablet (3 [facility] - tablet 00:00: mg total) Medica l 00 by mouth Center every night as needed. pantoprazol Yes 40mg QD Take [address] [facility] e 3-10 tablet (40 [facility] - (PROTONIX) 00:00: mg total) Me dical 40 MG 00 by mouth Center tablet daily. povidone-io Yes Apply [facility] dine 3-10 moderate [facility]ukes - (Betadine 00:00: amount to Med ical Surgical 00 tips of Center Scrub) 7.5 toe wounds % Soln soap daily. albuterol 2021- Yes 2.5mg Take [address] (PROVENTIL) 3-10 03-10 (2.5 mg Luke [facility] - 2.5 mg /3 00:00: 23:59 total) by Sd dical mL (0.083 00 :00 nebulizati Cent er %) on every 4 nebulizer (four) solution hours as needed for Wheezing or Shortness of Breath. furosemide 0 2021- Yes 40mg Take [address] [facility] (LASIX) 40 3-10 03-10 tablet (40 Ashley kes - MG tablet 00:00: 23:59 mg total) Me dical 00 :00 by mouth 2 Center (two) times daily. acetylcyste 2021- Yes 2mL Take [address] [facility] ine 20% 10-26-10 by [facility] - (MucoMYST) 00:00: 23:59 nebulizati Medical 200 mg/mL 00 :00 on every 6 Cent er (20 %) (six) nebulizer hours. solution guaiFENesin 2021- Yes 600mg Q.5D Take [address] (mucINEX) -05 21-10 tablet [facility] - 600 mg 12 00:00: 23:59 (600 mg Medi beverly hr tablet 00 :00 total) by Cente r mouth 2 (two) times daily. ipratropium 2021- Yes .5mg Take 2.[address] (ATROVENT) 10 -10 mLs (0.5 Luke s - 0.02 % 00:00: 23:59 mg total) Medic al nebulizer 00 :00 by Center solution nebulizati on 4 (four) times daily as needed. metoprolol 2021- Yes 25mg Q.5D Take [address] [facility] tartrate -05 21-10 tablet (25 [facility] - (LOPRESSOR) 00:00: 23:59 mg total) Medical 25 MG 00 :00 by mouth 2 Center tablet (two) times daily. senna 2021- Yes 8.6mg QD Take [address] [facility] (SENOKOT) -05 21-10 tablet [facility] - 8.6 mg 00:00: 23:59 (8.6 mg Medical tablet 00 :00 total) by Center mouth nightly. acetaminoph 2021- Yes 650mg Take [address] [facility] en 3-10 03-05 tablets [facility] - (TYLENOL) 00:00: 23:59 (650 mg Medi beverly 325 MG 00 :00 total) by Center tablet mouth every 4 (four) hours as needed for up to 360 days. apixaban 2020- Yes 2.5mg Q.5D Take 1 [facility] (ELIQUIS) 3-10 04-09 tablet [facility] - 2.5 mg Tab 00:00: 23:59 (2.5 mg Med ical tablet 00 :00 total) by Center mouth 2 (two) times daily for 30 days. mINOCYCLine 2020- Yes 100mg Take [address] (MINOCIN,DY 3-10 -15 capsule Luke s - NACIN) 100 00:00: 23:59 (100 mg Med ical MG capsule 00 :00 total) by Cent er mouth every 12 (twelve) hours for 5 days. polyethylen 2020- No 17g Take [address] e glycol 3-10 -13 by mouth [facility] - (GLYCOLAX) 00:00: 23:59 daily as Me dical 17 gram 00 :00 needed Center packet (Constipat ion) for up to 3 days. furosemide 2020- No 1{tbl} Q.5D Take [address] (LASIX) 40 2-19 03-10 tablet by Vinay es - MG tablet 00:00: 00:00 mouth 2 Medi beverly 00 :00 (two) Center times daily. doxycycline 2020- No Use as [facility] (VIBRAMYCIN 2-04 11-10 directed. Ashley kes - ) 100 MG 00:00: 00:00 Medical capsule 00 :00 Center levoFLOXaci 2020- No 1{tbl} QD Take [address] n 2- 03-10 tablet by [facility] - (LEVAQUIN) 00:00: 00:00 mouth Medic al 750 MG 00 :00 daily. Center tablet predniSONE 2020- No 1{tbl} Q.5D Take [address] (DELTASONE) 2- 03-10 tablet by Ashley kes - 20 MG 00:00: 00:00 mouth 2 Medical tablet 00 :00 (two) Center times daily. predniSONE 2020- No 1{tbl} QD Take [address] (DELTASONE) 2-03 03-10 tablet by Ashley kes - 10 MG 00:00: 00:00 mouth Medical tablet 00 :00 daily. Center cinacalcet 2020- No TAKE [address] [facility] (SENSIPAR) 1-29 03-10 TABLET(30 Vinay es - 30 MG 00:00: 00:00 MG) BY Medical tablet 00 :00 MOUTH Center DAILY WITH BREAKFAST furosemide 2020- No TAKE [address] [facility] (LASIX) 20 09-16-10 TABLET(20 Vinay es - MG tablet 00:00: 00:00 MG) BY Medic al 00 :00 MOUTH Center DAILY atorvastati 2020- No TAKE [address] [facility] n (LIPITOR) 09-16-10 TABLET(40 Ashley kes - 40 MG 00:00: 00:00 MG) BY Medical tablet 00 :00 MOUTH Center DAILY metoprolol 2020- No TAKE [address] [facility] succinate 09-16-10 TABLET(25 [facility] - (TOPROL-XL) 00:00: 00:00 MG) BY Med ical 25 MG 24 hr 00 :00 MOUTH Center tablet DAILY levothyroxi 2020- No TAKE [address] [facility] ne 09-1610 TABLET(75 [facility] - (SYNTHROID, 00:00: 00:00 MCG) BY Sd dical LEVOTHROID) 00 :00 MOUTH Center 75 MCG EVERY tablet MORNING ON AN EMPTY STOMACH Entresto 2020- No TAKE 1/[address] 24-26 mg 09-1610 TABLET BY [facility] - Tab 00:00: 00:00 MOUTH Medical 00 :00 TWICE Center DAILY allopurinoL 2020- No 1{tbl} QD Take [address] (ZYLOPRIM) 09-06 tablet by Vinay es - 300 MG 00:00: 00:00 mouth Medical tablet 00 :00 daily. Center levothyroxi 2019-08- No 75ug Take [address] ne 12-29 mcg by [facility]ukes - (SYNTHROID, 14:03: 00:00 mouth Medi beverly LEVOTHROID) 40 :00 Every Center 75 MCG morning on tablet an empty stomach . cinacalcet 2019-08- No 30mg Take [address] [facility] (SENSIPAR) 10-10 tablet (30 Ashley kes - 30 MG 00:00: 00:00 mg total) Medica l tablet 00 :00 by mouth Center daily with breakfast for 30 days. furosemide 2019-08- No 20mg QD Take [address] [facility] (LASIX) 20 10-10 tablet (20 Ashley kes - MG tablet [...] 1{ampul Take [address] (ACCUNEB) 2- 12-21 e} ampule by Luke s - 0.63 mg/3 09:06: 00:00 nebulizati M edical mL 18 :00 on every 6 Center nebulizer (six) solution hours as needed for Wheezing. atorvastati 2019-08- No 80mg QD Take [address] [facility] n (LIPITOR) 2- 12-21 by mouth Vinay es - 80 MG 09:06: 00:00 daily. Medical tablet 18 :00 [place] predniSONE 2019-08- No 10mg QD Take [address] [facility] (DELTASONE) 2- 12-21 by mouth Vinay es - 10 MG 09:06: 00:00 daily. Medical tablet 14 :00 [place] aspirin 325 2019-08- No 325mg QD Take [address] [facility] MG tablet 2-21 12-21 mg by [facility] - 09:06: 00:00 mouth Medical 14 :00 daily. [place] esomeprazol 2019-08- No 20mg QD Take [address] [facility] e (NEXIUM) 2-21 12-21 by mouth Luke s - 20 MG 09:06: 00:00 daily. Medical capsule 14 :00 [place] budesonide 2019-08- Yes .5mg Q.5D Take [address] [facility] (PULMICORT) 2- 12-21 (0.5 mg Luke s - 0.5 mg/2 mL 00:00: 23:59 total) by Medical nebulizer 00 :00 nebulizati Cent er solution on 2 (two) times daily. nitroglycer 2019-08- No Put [address] [facility] in 10-0910 under [facility] - (NITROSTAT) 00:00: 00:00 tongue Med ical 0.4 MG SL 00 [...] - 0.63 mg/3 00:00: 23:59 total) by Sd dical mL 00 :00 nebulizati Center nebulizer on every 6 solution (six) hours as needed for Wheezing for up to 30 days. apixaban 2019-08- No 5mg Q.5D Take [address] [facility] (ELIQUIS) 5 10-09 tablet (5 Ashley kes - mg Tab 00:00: 23:59 mg total) Medic al tablet 00 :00 by mouth 2 Center (two) times daily for 30 days. arformotero 2019-08 No 15ug Q.5D Take 2 mL[address] [facility] St L (BROVANA) 2-08 09-20 (15 mcg Luke s - 15 mcg/2 mL 00:00: 23:59 total) by Medical nebulizer 00 :00 nebulizati Cent er solution on 2 (two) times daily for 30 days. clopidogrel 2019-08 No 75mg QD Take [address] [facility] (PLAVIX) 75 09-28 12-10 by mouth Vinay es - mg tablet 22:00: 00:00 daily. Medic al 22 :00 Center Trelegy 2019-08 No 1{puff} QD Inhale [address] Ellipta 09-2110 puff by [facility] - 100-62.5-25 00:00: 00:00 mouth via Medical mcg DsDv 00 :00 inhaler Center daily . Nexium Nexium Yes Frank 1 capsule [facility] Immunizations Ordered Filled Immunization Date Status Comments [facility] e Immunization Name Name FluAD FluAD 2019-04-29 Completed [facility] - 00:00:00 [facility] Vital Signs Vital Name Observation Time Observation Value Comments Source Systolic blood 2020-10-26 15:34:00 94 mm[Hg] [facility] Diastolic blood 2020-10-26 15:34:00 52 mm[Hg] [facility] S [facility] Heart rate 2020-10-26 15:34:00 59 /min [facility] Body temperature 2020-10-26 15:34:00 37.11 Tabatha [facility] Respiratory rate 2020-10-26 15:34:00 16 /min [facility] Oxygen saturation in 2020-10-26 15:34:00 92 /min [facility] - Arterial blood by Medical Ce nter Pulse oximetry Body weight 2020-10-26 05:39:00 49.034 kg [facility] BMI 2020-10-26 05:39:00 16.93 kg/m2 [facility] Body height 2020-08-16 14:14:00 170.2 cm [facility] Procedures Procedure Date / Time Performing Clinician Source Performed BASIC METABOLIC PANEL (7) 2020-10-26 03:54:[address] [facility] MAGNESIUM 2020-10-26 03:54:00 [facility] CBC W/PLT COUNT & AUTO 2020-10-26 03:54:00 Lady, Torres Woodson [facility] BASIC METABOLIC PANEL (7) 2020-10-25 06:25:[address] [facility] MAGNESIUM 2020-10-25 06:25:00 [facility] PROTHROMBIN TIME/INR 2020-10-25 06:24:00 Jordon Hamlin [facility] LACTIC ACID, VENOUS 2020-10-24 22:42:[address] [facility] BASIC METABOLIC PANEL (7) 2020-10-24 22:42:00 Truman Tan ph [facility] MAGNESIUM 2020-10-24 22:42:[address] [facility] HEPATIC FUNCTION PANEL 2020-10-24 22:42:[address] [facility] LACTIC ACID, VENOUS 2020-10-24 16:24:00 Lady, Torres Woodson [facility] TYPE AND SCREEN, AUTOMATED 2020-10-24 16:24:00 Fidelina Esquivel [facility] SARS-COV2/RT-PCR ([facility] & 2020-10-24 12:34:00 Elva Esquivel [facility] REF LABS) [facility] BLOOD GAS, ARTERIAL 2020-10-24 11:47:00 Lady, Torres Woodson [facility] XR CHEST 1 VIEW 2020-10-24 10:34:00 Lady, Torres Woodson [facility] LACTIC ACID, VENOUS 2020-10-24 10:24:00 Lady, Torres Woodson [facility] BASIC METABOLIC PANEL (7) 2020-10-24 03:31:[address] [facility] MAGNESIUM 2020-10-24 03:31:[address] [facility] XR CHEST 1 VIEW 2020-10-23 11:07:00 Lady, Torres Woodson [facility] BASIC METABOLIC PANEL (7) 2020-10-23 05:27:00 Lady, Torres Hernandez rd [facility] MAGNESIUM 2020-10-23 05:27:00 Lady, Torres Woodson [facility] BLOOD GAS, ARTERIAL 2020-10-22 09:24:00 AdBrisa munoz [facility] CBC W/PLT COUNT & AUTO 2020-10-22 04:29:00 Lady, Torres Woodson [facility] BASIC METABOLIC PANEL (7) 2020-10-22 04:29:00 Lady, Torres Hernandez rd [facility] MAGNESIUM 2020-10-22 04:29:00 Lady, Torres Woodson [facility] B-TYPE NATRIURETIC FACTOR 2020-10-21 04:15:[address] [facility] (BNP) [facility] CBC W/PLT COUNT & AUTO 2020-10-21 04:15:00 Lady, Torres Woodson [facility] BASIC METABOLIC PANEL (7) 2020-10-21 04:15:00 Lady, Torres Hernandez rd [facility] MAGNESIUM 2020-10-21 04:15:00 Lady, Torres Woodson [facility] ECG 12-LEAD 2020-10-20 18:05:[address] [facility] TROPONIN I 2020-10-20 17:58:[address] [facility] CBC W/PLT COUNT & AUTO 2020-10-20 07:49:00 Lady, Torres Woodson [facility] BASIC METABOLIC PANEL (7) 2020-10-20 07:49:00 Lady, Torres Hernandez rd [facility] MAGNESIUM 2020-10-20 07:49:00 Lady, Torres Woodson [facility] IRON, TIBC, % SAT. 2020-10-20 07:49:00 Lady, Torres Woodson [facility] (WITHOUT FERRITIN) [facility] Cente r FERRITIN 2020-10-20 07:49:00 Lady, Torres Woodson [facility] VITAMIN B12 AND FOLATE 2020-10-20 07:49:00 Lady, Torresmelanie Woodson [facility] HEPARIN ANTIBODY 2020-10-19 13:19:00 Lady, Torresmelanie Woodson [facility] CBC W/PLT COUNT & AUTO 2020-10-19 03:33:00 Val Grady [facility] BASIC METABOLIC PANEL (7) 2020-10-19 03:33:00 Val Grady [facility] TROPONIN I 2020-10-18 21:28:00 Trey Ramos [facility] BLOOD GAS, ARTERIAL 2020-10-18 11:18:00 Val Grady [facility] XR CHEST 1 VIEW 2020-10-18 11:05:00 Val Grady [facility] TROPONIN I 2020-10-18 10:16:00 Val Grady [facility] B-TYPE NATRIURETIC FACTOR 2020-10-18 10:16:00 Val Grady [facility] (BNP) [facility] ECG 12-LEAD 2020-10-18 09:48:28 Unknown, Hl7 [facility] BASIC METABOLIC PANEL (7) 2020-10-18 03:34:00 Val Grady [facility] HEMOGLOBIN AND HEMATOCRIT 2020-10-18 03:34:00 Val Grady [facility] XR FOOT RIGHT 3 VIEW 2020-10-17 20:13:00 Lidya Cavanaugh [facility] HEMOGLOBIN AND HEMATOCRIT 2020-10-17 16:24:00 Val Grady [facility] REPORT OF PROCEDURE - 2020-10-17 09:07:50 William Reynoso [facility] - ENDOSCOPY URL [facility] TISSUE EXAM 2020-10-17 08:44:00 William Reynoso [facility] COLONOSCOPY,BIOPSY 2020-10-17 08:17:00 William Reynoso [facility] HEMOGLOBIN AND HEMATOCRIT 2020-10-17 03:48:00 Val Grady [facility] BASIC METABOLIC PANEL (7) 2020-10-17 03:47:00 Val Grady [facility] HEMOGLOBIN AND HEMATOCRIT 2020-10-16 13:44:00 Val Grady [facility] XR CHEST 1 VIEW 2020-10-16 12:09:00 Kim Henao [facility] BASIC METABOLIC PANEL (7) 2020-10-16 02:31:00 Val Grady [facility] MAGNESIUM 2020-10-16 02:31:00 Polo Swanson [facility] HEMOGLOBIN AND HEMATOCRIT 2020-10-15 23:30:00 Val Grady [facility] SARS-COV2/RT-PCR ([facility] & 2020-10-15 17:46:00 [facility] HEMOGLOBIN AND HEMATOCRIT 2020-10-15 16:59:00 Val Grady [facility] HEMOGLOBIN AND HEMATOCRIT 2020-10-15 10:40:00 Val Grady [facility] VANCOMYCIN LEVEL, TROUGH 2020-10-15 05:40:00 Ozzie Urrutia [facility] CBC W/PLT COUNT & AUTO 2020-10-15 03:59:00 Rudy Anaya [facility] BASIC METABOLIC PANEL (7) 2020-10-15 03:59:[address] [facility] CBC (HEMOGRAM ONLY) 2020-10-14 22:10:00 Ozzie Urrutia [facility] BASIC METABOLIC PANEL (7) 2020-10-14 22:10:00 Ozzie Urrutia [facility] PROTHROMBIN TIME/INR 2020-10-14 22:10:00 [place] [facility] TYPE AND SCREEN, AUTOMATED 2020-10-14 22:10:00 Ozzie Urrutia [facility] ECG 12-LEAD 2020-10-14 16:35:17 Val Grady [facility] HC ARTERIAL DOPPLER LEG 2020-10-14 15:41:00 [facility] 2020-10-14 10:45:00 Hossein Iniguez [facility] PROTHROMBIN TIME/INR 2020-10-14 10:15:00 Renetta Cardenas [facility] BASIC METABOLIC PANEL (7) 2020-10-14 07:31:00 Val Grady [facility] CBC W/PLT COUNT & AUTO 2020-10-14 07:31:00 Val Grady [facility] LACTIC ACID, VENOUS 2020-10-14 07:31:00 Val Grady [facility] APTT 2020-10-14 05:31:00 Manisundgabriela [facility] APTT 2020-10-13 22:26:00 Manisundgabriela [facility] CTA CHEST 2020-10-13 19:54:00 Manisundgabriela, [facility] CT/CTA AAA AND RUNOFF 2020-10-13 19:54:00 Maxi Cardoza [facility] APTT 2020-10-13 16:21:00 Manisundaramonica, [facility] HEMOGLOBIN AND HEMATOCRIT 2020-10-13 14:34:00 [facility]ENOUS 2020-10-13 14:34:00 [facility] W/ DOPPLER 2020-10-13 10:57:[address] [facility] (CW/PW/COLOR) [facility] APTT 2020-10-13 08:39:00 [facility] HEPATIC FUNCTION PANEL 2020-10-13 06:29:00 [facility] MAGNESIUM 2020-10-13 06:29:00 [facility] PHOSPHORUS 2020-10-13 06:29:00 [facility] PROTHROMBIN TIME/INR 2020-10-13 06:29:00 [facility] CBC W/PLT COUNT & AUTO 2020-10-13 06:29:00 [facility] LACTIC ACID, VENOUS 2020-10-13 06:29:00 [facility] APTT 2020-10-13 06:29:00 [facility] B-TYPE NATRIURETIC FACTOR 2020-10-13 01:25:00 [facility] (BNP) [facility] LACTIC ACID, VENOUS 2020-10-13 01:25:00 [facility] BASIC METABOLIC PANEL (7) 2020-10-13 01:25:00 [facility] PROCALCITONIN 2020-10-13 01:25:00 [facility] BLOOD GAS, VENOUS 2020-10-13 01:25:00 [facility] CBC (HEMOGRAM ONLY) 2020-10-12 23:42:00 [facility] PROTHROMBIN TIME/INR 2020-10-12 23:42:00 [facility] LACTIC ACID, VENOUS 2020-10-12 23:42:00 [facility] APTT 2020-10-12 23:42:00 [facility] TYPE AND SCREEN, AUTOMATED 2020-10-12 23:42:00 Maxi Cardoza [facility] ECG 12-LEAD 2020-10-12 23:38:51 [facility] ARRYTHMIA IMPLANT REPORT - 2020-10-12 00:00:00 Provider, [facility] CARDIAC CATH REPORT - SCAN 2020-10-12 00:00:00 Provider, [facility] REPORT OF PROCEDURE - 2020-10-12 00:00:00 Provider, [facility] ENDOSCOPY SCAN [facility] ECG 12-LEAD 2020-08-08 07:21:06 Pedro Wallace [facility] BASIC METABOLIC PANEL (7) 2020-08-08 04:21:00 [facility] CALCIUM, IONIZED 2020-08-08 04:21:00 [facility] PHOSPHORUS 2020-08-08 04:21:00 [facility] CBC W/PLT COUNT & AUTO 2020-08-08 04:21:00 [facility]onor[facility] center[facility] MAGNESIUM 2020-08-08 04:21:00 [facility] ECG 12-LEAD 2020-08-07 06:36:48 [facility] [facility] BASIC METABOLIC PANEL (7) 2020-08-07 05:32:00 Domingogar, [facility] CALCIUM, IONIZED 2020-08-07 05:32:00 Weston [facility] MAGNESIUM 2020-08-07 05:32:00 [facility] CBC W/PLT COUNT & AUTO 2020-08-07 05:32:00 Sonny Ontiveros [facility] PHOSPHORUS 2020-08-07 05:32:00 Weston [facility] ECG 12-LEAD 2020-08-06 06:14:33 Pedro Wallace [facility] BASIC METABOLIC PANEL (7) 2020-08-06 04:57:00 Weston [facility] CALCIUM, IONIZED 2020-08-06 04:57:00 Weston [facility] PHOSPHORUS 2020-08-06 04:57:00 Weston [facility] CBC W/PLT COUNT & AUTO 2020-08-06 04:57:00 Sonny Ontiveros [facility] MAGNESIUM 2020-08-06 04:57:00 Weston [facility] HC ARTERIAL(ELIA W 2020-08-05 16:00:00 Tangela Nance [facility] - DOPPLER)ONLY Medical Center HC ARTERIAL DOPPLER LEG 2020-08-05 15:30:00 Tangela Nance [facility] NM PARATHYROID SCAN WITH 2020-08-05 14:48:00 [facility] SARS-COV2/RT-PCR (HS & 2020-08-05 05:49:00 Ildefonso Richards [facility] - REF LABS) Medical Center TROPONIN I 2020-08-05 05:49:00 Dick Glover [facility] ECG 12-LEAD 2020-08-05 02:27:49 Unknown, [facility] ECG 12-LEAD 2020-08-05 02:27:01 Unknown, [facility] XR CHEST 1 VIEW 2020-08-05 02:00:00 Dick Glover [facility] Center BASIC METABOLIC PANEL (7) 2020-08-05 01:51:00 [facility] CALCIUM, IONIZED 2020-08-05 01:51:00 [facility]OS[facility]US 2020-08-05 01:51:00 [facility] CBC W/PLT COUNT & AUTO 2020-08-05 01:51:00 Sonny Ontiveros CH I [facility] MAGNESIUM 2020-08-05 01:51:00 Weston [facility] TROPONIN I 2020-08-05 01:51:00 Dick Glover [facility] ECG 12-LEAD 2020-08-04 06:10:24 Pedro Wallace [facility] BASIC METABOLIC PANEL (7) 2020-08-04 04:37:00 [facility] CALCIUM, IONIZED 2020-08-04 04:37:00 [facility] 2020-08-04 04:37:00 [facility] CBC W/PLT COUNT & AUTO 2020-08-04 04:37:00 Sonny Ontiveros CH I [facility] MAGNESIUM 2020-08-04 04:37:00 [facility] C. DIFFICILE GDH TOXIN 2020-08-03 15:43:00 Sonny Ontiveros CH I [facility] ECG 12-LEAD 2020-08-03 06:20:50 Pedro Wallace [facility] BASIC METABOLIC PANEL (7) 2020-08-03 04:39:00 Weston [facility] CALCIUM, IONIZED 2020-08-03 04:39:00 Sonny Ontiveros [facility] PHOSPHORUS 2020-08-03 04:39:00 Weston [facility] CBC W/PLT COUNT & AUTO 2020-08-03 04:39:00 Sonny Ontiveros CH I [facility] MAGNESIUM 2020-08-03 04:39:00 [facility] L CATH & PCI 2020-08-02 10:28:[address] [facility] CBC (HEMOGRAM ONLY) 2020-08-02 04:20:00 [facility] BASIC METABOLIC PANEL (7) 2020-08-02 04:20:00 [facility] PHOSPHORUS 2020-08-02 04:20:00 [facility] MAGNESIUM 2020-08-02 04:20:00 [facility] PTH, INTACT 2020-08-02 04:20:00 [facility] CALCIUM, IONIZED 2020-08-02 04:20:00 Weston [facility] ECG 12-LEAD 2020-08-01 15:47:39 Elie Brewer [facility] TRANSESOPHAGEAL ECHO 2020-08-01 14:51:[address] [facility] CARDIOVERSION 2020-08-01 10:56:[address] [facility] CBC (HEMOGRAM ONLY) 2020-08-01 05:32:00 [facility] BASIC METABOLIC PANEL (7) 2020-08-01 05:32:00 [facility] PHOSPHORUS 2020-08-01 05:32:00 [facility] MAGNESIUM 2020-08-01 05:32:00 Tom, [facility] CALCIUM, IONIZED 2020-08-01 05:32:00 [facility] (HEMOGRAM ONLY) 2020-07-31 05:42:00 [facility] BASIC METABOLIC PANEL (7) 2020-07-31 05:42:00 [facility] PHOSPHORUS 2020-07-31 05:42:00 [facility] MAGNESIUM 2020-07-31 05:42:00 [facility] CALCIUM, IONIZED 2020-07-31 05:42:00 [facility] (HEMOGRAM ONLY) 2020-07-30 04:28:00 [facility] BASIC METABOLIC PANEL (7) 2020-07-30 04:28:00 [facility] PHOSPHORUS 2020-07-30 04:28:00 [facility] MAGNESIUM 2020-07-30 04:28:00 [facility] CALCIUM, IONIZED 2020-07-30 04:28:[address] [facility] [address] CHEST WITHOUT IV 2020-07-29 22:05:00 [facility] IRON, TIBC, % SAT. 2020-07-29 18:05:00 [facility] (WITHOUT FERRITIN) [facility] r 2D ECHO W/ DOPPLER 2020-07-29 08:48:27 [facility] (CW/PW/COLOR) [facility] TSH/FREE T4 IF INDICATED 2020-07-29 04:20:00 Ildefonso Richards [facility] HEMOGLOBIN A1C 2020-07-29 04:20:00 [facility] Ildefonso [facility] LIPID PANEL 2020-07-29 04:20:00 Ildefonso Richards [facility] CBC (HEMOGRAM ONLY) 2020-07-29 04:20:00 [facility] BASIC METABOLIC PANEL (7) 2020-07-29 04:20:00 [facility] PHOSPHORUS 2020-07-29 04:20:00 [facility] MAGNESIUM 2020-07-29 04:20:00 [facility] PROCALCITONIN 2020-07-29 04:20:00 [facility] VITAMIN B12 AND FOLATE 2020-07-29 04:20:00 Ildefonso Richards [facility] T4, FREE 2020-07-29 04:20:00 Ildefonso Richards [facility] BLOOD CULTURE 2020-07-28 21:16:00 Ildefonso Richards [facility] BLOOD CULTURE 2020-07-28 21:15:00 Ildefonso Richards [facility] ECG 12-LEAD 2020-07-28 20:54:37 Ildefonso Richards [facility] SARS-COV2/RT-PCR (SL & 2020-07-28 20:36:00 Ildefonso Richards [facility] - REF LABS) [facility] CBC W/PLT COUNT & AUTO 2020-07-28 20:33:00 Ildefonso Richards [facility] COMPREHENSIVE METABOLIC 2020-07-28 20:33:00 Ildefonso Richards [facility] PANEL [facility] B-TYPE NATRIURETIC FACTOR 2020-07-28 20:33:00 Ildefonso Richards [facility] (BNP) Medical [facility] MAGNESIUM 2020-07-28 20:33:00 Ildefonso Richards [facility] XR CHEST 1 VIEW 2020-07-28 19:50:[address] [facility]BEDSIDE [facility] Center VASCULAR DIAGRAM -SCAN 2020-07-28 00:00:00 Provider, Default [facility] CARDIAC CATH REPORT - SCAN 2020-07-28 00:00:00 Provider, Default [facility] Plan of Care Planned Activity Planned Date Details Comments Source Future Scheduled 2030-10-[address] [facility] Test 00:00:00 [facility] colon (procedure) [code = 956370646] Future Scheduled 2015-07-[address] [facility] - Test 00:00:00 WELLNESS (YEAR 2 or Medical Center FIRST YEAR if no IPPE) [code = MEDICARE ANNUAL WELLNESS (YEAR 2 or FIRST YEAR if no IPPE)] Future Scheduled 2014 PNEUMOCOCCAL 65+ YRS [facility] - Test 00:00:00 (1 of 1 - Medical Center [id number]) [code = PNEUMOCOCCAL 65+ YRS (1 of 1 - [id number])] Future Scheduled 1999 SHINGLES VACCINES ([address] [facility] - Test 00:00:00 of 2) [code = SHINGLES Medic al Center VACCINES (1 of 2)] Future Scheduled 1968 DTAP/TDAP/TD VACCINES [facility] Test 00:00:00 (1 - Tdap) [code = Medical C enter DTAP/TDAP/TD VACCINES (1 - Tdap)] Future Scheduled 1967 HEPATITIS C [facility]CRE[facility]ING [facility] Test 00:00:00 [code = HEPATITIS C Medical Center SCREENING] Medication 2020-11-10 predniSONE (DELTASONE) [facility] 10 MG tablet [code = [facility] 743040] Medication 2020-11-05 predniSONE (DELTASONE) [facility] 20 MG tablet [code = [facility] 120726] Medication 2020-10-31 predniSONE (DELTASONE) [facility] 10 MG tablet [code = [facility] 530827] Encounters Start End Encounter Admission Attending Care Care Encounter Source Date/Time Date/Time Type Type Clinicians Facility Department ID 2020-10-27 2020-10-27 Outpatient [facility] [id number] [facility] 2020-10-18 2020-10-18 Outpatient [facility]ML[facility] [id number] [facility] 2020-10-14 2020-10-14 Outpatient [facility] [id number] [facility] 2020-10-11 2020-10-11 Outpatient [facility] [id number] [facility] 2020-10-10 2020-10-10 Outpatient [facility] [id number] [facility] 2020-09-21 2020-09-21 Outpatient [facility]LML[facility] [id number] [facility] 2020-09-19 2020-09-19 Outpatient [facility]LMLC [facility] [id number] [facility] 2020-09-16 2020-09-16 Outpatient [facility] [id number] [facility] 2020-09-08 2020-09-08 Outpatient [facility] [id number] [facility] 2020-09-08 2020-09-08 Outpatient [facility]MLC [facility] [id number] [facility] 2020-09-06 2020-09-06 Outpatient [facility]ML[facility] [id number] [facility] 2020-09-06 2020-09-06 Outpatient [facility]ML[facility] [id number] [facility] 2020-08-23 2020-08-23 Outpatient [facility] [id number] [facility] 2020-07-31 2020-07-31 Outpatient [facility]LMLC [facility] [id number] [facility] 2020-05-27 2020-05-27 Outpatient [facility]LMLC [facility] [id number] [facility] 2020-05-25 2020-05-25 Outpatient [facility] [id number] [facility] 2020-05-25 2020-05-25 Outpatient [facility] [id number] [facility] 2020-05-18 2020-05-18 [facility] [id number] 2020-04-26 2020-04-26 [facility] [id number] 09:52:00 09:52:00 t [employer] s - Drive [facility] Medicine l Medicine Outpati ent Clinics 2020-02-23 2020-02-23 [facility] [id number] 14:30:00 14:30:00 t [employer] s - Drive [facility] Family Medicine l Medicine Outpati ent Clinics 2019-12-30 2019-12-30 [facility] [id number] 10:40:00 10:40:[address] [employer] s - Road [facility] Family Medicine l Medicine Outpati ent Clinics 2019-12-24 2019-12-24 [facility] [id number] 16:41:00 16:41:00 t [employer] s - Drive [facility] Medicine l Medicine Outpati ent Clinics 2019-11-23 2019-11-23 [facility] [id number] 14:00:00 14:00:00 t [employer] s - [employer] [facility] Medicine Medicine Outpati ent Clinics 2019-11-05 2019-11-05 [facility] [id number] 14:59:00 14:59:00 t [employer] s - Drive [facility] Medicine l Medicine Outpati ent Clinics 2019-10-12 2019-10-12 [facility] [id number] 11:27:00 11:27:00 t [employer] s - [employer] [facility] Medicine Outpati ent Clinics 2019-10-02 2019-10-02 [facility] [id number] 09:03:00 09:03:00 t [employer] s [employer] [facility] Medicine Outpati ent Clinics 2019-09-28 2019-09-28 [facility] [id number] 13:16:00 13:16:00 t [employer] [facility] Medicine Outpati ent Clinics 2019-08-31 2019-08-31 [facility] [id number] 14:00:00 14:00:00 t [employer] s - [employer] [facility] Medicine Outpati ent Clinics 2019-08-24 2019-08-24 [facility] [id number] 11:45:00 11:45:00 t [employer] [facility] Medicine Outpati ent Clinics 2019 2019 [facility] [id number] 11:00:00 11:00:00 t [employer] s - [employer] [facility] Medicine Medicine Outpati ent Clinics 2019-07-06 2019-07-06 [facility] [id number] 13:59:00 13:59:00 t [employer] s - [employer] [facility] l Medicine Outpati ent Clinics 2019-06-04 2019-06-04 [facility] [id number] 14:23:00 14:23:00 t [employer] s - [employer] [facility] Medicine Outpati ent Clinics 2019-05-18 2019-05-18 [facility] [id number] 09:47:00 09:47:[address] Luke s - Drive [facility] Medicine l Medicine Outpati ent Clinics 2019-05-04 2019-05-04 [facility] [id number] 13:52:00 13:52:[address] Luke s - Drive [facility] Medicine l Medicine Outpati ent Clinics 2019-04-29 2019-04-29 [facility] [id number] 14:30:00 14:30:[address] Luke s - Drive [facility] Medicine l Medicine Outpati ent Clinics 2019-04-27 2019-04-27 [facility] [id number] 10:20:00 10:20:[address] Luke s - Drive [facility] l Medicine Outpati ent Clinics 2019-02-06 2019-02-06 [facility] [id number] 08:31:00 08:31:[address] Luke s - Drive [facility] Medicine l Medicine Outpati ent Clinics 2019-01-02 2019-01-02 [facility] [id number] 11:08:00 11:08:[address] Luke s - Drive [facility] Medicine l Medicine Outpati ent Clinics 2018-12-23 2018-12-23 [facility] [id number] 15:00:00 15:00:[address] Luke s - Drive [facility] Medicine l Medicine Outpati ent Clinics 2018-12-08 2018-12-08 [facility] [id number] 13:58:00 13:58:[address] Luke s - Drive [facility] Medicine l Medicine Outpati ent Clinics 2018-12-04 2018-12-04 [facility] [id number] 11:57:00 11:57:[address] Luke s - Drive [facility] l Medicine Outpati ent Clinics 2018-12-01 2018-12-01 [facility] [id number] 14:49:00 14:49:[address] Luke s - Drive [facility] Medicine Outpati ent Clinics 2018-10-30 2018-10-30 Outpatient Dagmar Leavittt [id number] 11:15:00 11:15:00 t [employer] s - Drive [facility] Outpati ent Clinics 2018-10-28 2018-10-28 Outpatient Timakelly Dagmart [id number] 16:53:00 16:53:00 t [employer] s - Drive [facility] Medicine Outpati ent Clinics 2018-10-24 2018-10-24 Outpatient Dagmar Leavittt [id number] 16:00:00 16:00:00 t [employer] s - Drive [facility] Medicine Outpati ent Clinics 2018-09-17 2018-09-17 Outpatient Dagmar Leavittt [id number] 13:45:00 13:45:00 [employer] - [employer] [facility] Outpati ent Clinics 2018-03-18 2018-03-18 Outpatient Dagmar Leavittt [id number] 10:15:00 10:15:00 [employer] [facility] Results Test Description Test Time Test Comments Results Result Sourc e Comments CARDIAC CATH 2020-10-[address] [facility] REPORT - SCAN 13:39:05 unspecified - Medical provider. [facility] CARDIAC CATH 2020-10-[address] [facility] REPORT - SCAN 13:39:04 unspecified - Medical provider. [place] ARRYTHMIA IMPLANT 2020-10-28 [address]dered [address] [facility] REPORT - SCAN 13:39:04 unspecified - Medical provider. [place] Basic Metabolic Panel 2020-10-26 05:51:00 Test Item Value Reference Range Interpretation Comme nts Sodium (test code = 2951-2) 143 meq/L 136-145 Potassium (test code = 4.3 meq/L 3.5-5.1 2823-3) Chloride (test code = 99 meq/L 98-107 2074-0) CO2 (test code = 2027-9) 34 meq/L 22-29 H BUN (test code = 3094-0) 41 mg/dL 7-21 H Creatinine (test code = 0.88 mg/dL 0.57-1.25 0-0) Glucose (test code = 187 mg/dL 70-105 H 2345-7) Calcium (test code = 7.5 mg/dL 8.4-10.2 L 51646-1) EGFR (test code = 19403-7) 85 mL/min/1.73 sq m ESTIMATED GFR IS NOT ACCURATE CREATININE KANG CHIP IN PREDICTING GLOMERULAR FILT RATION RATE. ESTIMATED GFR IS NOT APPLICABLE FOR DIALYSIS PATIEN TS. JERONIMO (test code = JERONIMO) [facility] ID - Lab Interpretation (test Abnormal code = 43594-8) [facility] [id number] 05:51:00 Test Item Value Reference Range Interpretation Comments SODIUM (BEAKER) 143 meq/L 136-145 (test code = 381) POTASSIUM (BEAKER) 4.3 meq/L 3.5-5.1 (test code = 379) CHLORIDE (BEAKER) 99 meq/L 98-107 (test code = 382) CO2 (BEAKER) (test 34 meq/L 22-29 H code = 355) BLOOD UREA NITROGEN 41 mg/dL 7-21 H (BEAKER) (test code = 354) CREATININE (BEAKER) 0.88 mg/dL 0.57-1.25 (test code = 358) GLUCOSE RANDOM 187 mg/dL 70-105 H (BEAKER) (test code = 652) CALCIUM (BEAKER) 7.5 mg/dL 8.4-10.2 L (test code = 697) EGFR (BEAKER) (test 85 mL/min/1.73 ESTIMA TYRA GFR IS code = 1092) sq m NOT ACCURATE CREATININE CLEARANCE IN PREDICTING GLOMERULAR FILTRATION RATE . ESTIMATED GFR I S NOT APPLICABLE FOR DIALYSIS PATIEN TS. [facility] Internship ID - [id number] 05:49:00 Test Item Value Reference Range Interpretation Comments Magnesium (test code = 1.7 mg/dL 1.6-2.6 30030-6) JERONIMO (test code = JERONIMO) [facility] Internship ID - Lab Interpretation (test Normal code = 62575-8) [facility] 05:49:00 Test Item Value Reference Range Interpretation Comments MAGNESIUM (BEAKER) (test code = 1.7 mg/dL 1.6-2.6 627) [facility] Internship ID - ASCBC with platelet count + automated [id number] 04:53:00 Test Item Value Reference Range Interpretation Comments WBC (test code = 6690-2) 5.3 See_Comment [A utomated message] The system [employer] generated this result transmitted ref erence range: 3.5 - 10 .5 K/L. The refe rence range was not u sed to interpret this result as normal/abnor mal. RBC (test code = 789-8) 2.57 See_Comment L [Au tomated message] The system [employer] generated this result transmitted ref erence range: 4.63 - 6 .08 M/L. The refe rence range was not u sed to interpret this result as normal/abnor mal. MCHC (test code = 786-4) 32.5 See_Comment L [A utomated message] The system [employer] generated this result transmitted ref erence range: 32.3 - 3 6.5 GM/DL. The refe rence range was not u sed to interpret this result as normal/abnor mal. Hematocrit (test code = 25.5 % 40.1-51 L 4544-3) MCV (test code = 787-2) 99.2 fL 79-92.2 H MCH (test code = 785-6) 32.3 pg 25.7-32.2 H RDW (test code = 788-0) 13.7 % 11.6-14.4 Platelets (test code = 126 See_Comment L [Aut omated message] 777-3) The system [employer] generated this result transmitted ref erence range: 150 - 45 0 K/CU MM. The referen ce range was not u sed to interpret this result as normal/abnor mal. MPV (test code = 10.9 fL 9.4-12.4 66763-4) nRBC (test code = 413) 0 See_Comment [Aut omated message] The system [employer] generated this result transmitted ref erence range: 0 - 0 /1 00 WBC. The refere nce range was not u sed to interpret this result as normal/abnor mal. % Neutros (test code = 91 % 429) % Lymphs (test code = 4 % 430) % Monos (test code = 4 % 431) % Eos (test code = 432) 0 % % Baso (test code = 437) 0 % # Neutros (test code = 4.80 See_Comment [Aut omated message] 670) The system [employer] generated this result transmitted ref erence range: 1.78 - 5 .38 K/L. The refe rence range was not u sed to interpret this result as normal/abnor mal. # Lymphs (test code = 0.22 See_Comment L [Auto mated message] 414) The system [employer] generated this result transmitted ref erence range: 1.32 - 3 .57 K/L. The refe rence range was not u sed to interpret this result as normal/abnor mal. # Monos (test code = 0.21 See_Comment L [Autom ated message] 415) The system [employer] generated this result transmitted ref erence range: 0.30 - 0 .82 K/L. The refe rence range was not u sed to interpret this result as normal/abnor mal. # Eos (test code = 416) 0.00 See_Comment L [Au tomated message] The system [employer] generated this result transmitted ref erence range: 0.04 - 0 .54 K/L. The refe rence range was not u sed to interpret this result as normal/abnor mal. # Baso (test code = 417) 0.00 See_Comment L [A utomated message] The system [employer] generated this result transmitted ref erence range: 0.01 - 0 .08 K/L. The refe rence range was not u sed to interpret this result as normal/abnor mal. Immature 0 % 0-1 Granulocytes-Relative (test code = 2801) Lab Interpretation (test Abnormal code = 72291-8) [facility] W/PLT COUNT & AUTO [id number] 04:53:00 Test Item Value Reference Range Interpretation Comments WHITE BLOOD CELL COUNT (BEAKER) 5.3 K/ L 3.5-10.5 (test code = 775) RED BLOOD CELL COUNT (BEAKER) 2.57 M/ L 4.63-6.08 L (test code = 761) HEMOGLOBIN (BEAKER) (test code = 8.3 GM/DL 13.7-17.5 L 410) HEMATOCRIT (BEAKER) (test code = 25.5 % 40.1-51.0 L 411) MEAN CORPUSCULAR VOLUME (BEAKER) 99.2 fL 79.0-92.2 H (test code = 753) MEAN CORPUSCULAR HEMOGLOBIN 32.3 pg 25.7-32.2 H (BEAKER) (test code = 751) MEAN CORPUSCULAR HEMOGLOBIN CONC 32.5 GM/DL 32.3-36.5 (BEAKER) (test code = 752) RED CELL DISTRIBUTION WIDTH 13.7 % 11.6-14.4 (BEAKER) (test code = 412) PLATELET COUNT (BEAKER) (test 126 K/CU MM 150-450 L code = 756) MEAN PLATELET VOLUME (BEAKER) 10.9 fL 9.4-12.4 (test code = 754) NUCLEATED RED BLOOD CELLS 0 /100 WBC 0-0 (BEAKER) (test code = 413) NEUTROPHILS RELATIVE PERCENT 91 % (BEAKER) (test code = 429) LYMPHOCYTES RELATIVE PERCENT 4 % (BEAKER) (test code = 430) MONOCYTES RELATIVE PERCENT 4 % (BEAKER) (test code = 431) EOSINOPHILS RELATIVE PERCENT 0 % (BEAKER) (test code = 432) BASOPHILS RELATIVE PERCENT 0 % (BEAKER) (test code = 437) NEUTROPHILS ABSOLUTE COUNT 4.80 K/ L 1.78-5.38 (BEAKER) (test code = 670) LYMPHOCYTES ABSOLUTE COUNT 0.22 K/ L 1.32-3.57 L (BEAKER) (test code = 414) MONOCYTES ABSOLUTE COUNT (BEAKER) 0.21 K/ L 0.30-0.82 L (test code = 415) EOSINOPHILS ABSOLUTE COUNT 0.00 K/ L 0.04-0.54 L (BEAKER) (test code = 416) BASOPHILS ABSOLUTE COUNT (BEAKER) 0.00 K/ L 0.01-0.08 L (test code = 417) IMMATURE GRANULOCYTES-RELATIVE 0 % 0-1 PERCENT (BEAKER) (test code = 2801) BASIC METABOLIC [id number] 07:27:00 Test Item Value Reference Range Interpretation Comments SODIUM (BEAKER) 142 meq/L 136-145 (test code = 381) POTASSIUM (BEAKER) 5.0 meq/L 3.5-5.1 (test code = 379) CHLORIDE (BEAKER) 98 meq/L 98-107 (test code = 382) CO2 (BEAKER) (test 38 meq/L 22-29 H code = 355) BLOOD UREA NITROGEN 37 mg/dL 7-21 H (BEAKER) (test code = 354) CREATININE (BEAKER) 0.94 mg/dL 0.57-1.25 (test code = 358) GLUCOSE RANDOM 203 mg/dL 70-105 H (BEAKER) (test code = 652) CALCIUM (BEAKER) 7.8 mg/dL 8.4-10.2 L (test code = 697) EGFR (BEAKER) (test 79 mL/min/1.73 ESTIMA TYRA GFR IS code = 1092) sq m NOT ACCURATE CREATININE CLEARANCE IN PREDICTING GLOMERULAR FILTRATION RATE . ESTIMATED GFR I S NOT APPLICABLE FOR DIALYSIS PATIEN TS. [employer] Internship ID - [id number] 07:11:00 Test Item Value Reference Range Interpretation Comments MAGNESIUM (BEAKER) (test code = 1.9 mg/dL 1.6-2.6 627) [employer] Internship ID - ADMINProthrombin time/[id number] 06:54:00 Test Item Value Reference Interpretation Comments Range Protime (test code = 14.6 See_Comment H [Autom ated 5902-2) message] The system which generated this result transmitted reference range : 11.9 - 14.2 seconds. The reference range was not used to interpret this result as normal/abnormal . INR (test code = 1.17 See_Comment [Automated 6301-6) message] The system which generated this result transmitted reference range : <=5.90. The reference range was not used to interpret this result as normal/abnormal . JERONIMO (test code = Effective 01/14/2019: JERONIMO) PT Reference Range ChangeNew: 11.9-14.2 Previous: 11.7-14.7 RECOMMENDED COUMADIN/WARFARIN INR THERAPY RANGESSTANDARD DOSE: 2.0-3.0 Includes: PROPHYLAXIS for venous thrombosis, systemic embolization; TREATMENT for venous thrombosis and/or pulmonary embolus.HIGH RISK: Target INR is 2.5-3.5 for patients wiht mechanical heart valves. Within 24 hours, if on Coumadin Lab Interpretation Abnormal (test code = 34137-9) [facility][id number] 06:54:00 Test Item Value Reference Range Interpretation Comments PROTIME (BEAKER) 14.6 seconds 11.9-14.2 H (test code = 759) INR (BEAKER) (test 1.17 See_Comment [Automat ed message] code = 370) The system [employer] generated this result transmitted ref erence range: <=5.90. The reference range was not used to int erpret this result as normal/abnormal . Effective 01/14/2019: PT Reference Range ChangeNew: 11.9-14.2 Previous: 11.7- 14.7RECOMMENDED COUMADIN/WARFARIN INR THERAPY RANGESSTANDARD DOSE: 2.0-3.0 Includes: PROPHYLAXIS for venous thrombosis, systemic embolization; TREATMENT for venous thrombosis and/or pulmonary embolus.HIGH RISK: Target INR is2.5-3.5 for patients wiht mechanical heart valves.Within 24 hours, if on CoumadinHepatic function [id number] 23:20:00 Test Item Value Reference Range Interpretation Comments Protein, Total (test 5.2 See_Comment L [Autom ated code = 2885-2) message] The system which generated this result transmit tyra reference range : 6.0 - 8.3 gm/dL . The reference range was not u sed to interpret th is result as normal/abnormal . Albumin (test code = 2.8 g/dL 3.5-5 L 42525-6) Total Bilirubin (test 0.2 mg/dL 0.2-1.2 code = 1975-2) Bilirubin, Direct 0.1 mg/dL 0.1-0.5 (test code = 1968-7) Alkaline Phosphatase 93 U/L 40-150 (test code = 6768-6) AST (test code = 15 U/L 5-34 1920-8) ALT (test code = 13 U/L 6-55 1742-6) JERONIMO (test code = JERONIMO) [employer]ship ID - DB Lab Interpretation Abnormal (test code = 87147-2) [id number]:20[facility]00 Test Item Value Reference Range Interpretation Comments MAGNESIUM (BEAKER) (test code = 1.6 mg/dL 1.6-2.6 627) [employer] Internship ID - DBHEPATIC FUNCTION [id number] 23:20:00 Test Item Value Reference Range Interpretation Comments TOTAL PROTEIN (BEAKER) (test code = 5.2 gm/dL 6.0-8.3 L 770) ALBUMIN (BEAKER) (test code = 1145) 2.8 g/dL 3.5-5.0 L BILIRUBIN TOTAL (BEAKER) (test code 0.2 mg/dL 0.2-1.2 = 377) BILIRUBIN DIRECT (BEAKER) (test 0.1 mg/dL 0.1-0.5 code = 706) ALKALINE PHOSPHATASE (BEAKER) (test 93 U/L 40-150 code = 346) AST (SGOT) (BEAKER) (test code = 15 U/L 5-34 353) ALT (SGPT) (BEAKER) (test code = 13 U/L 6-55 347) [employer] Internship ID - DBBASIC METABOLIC [id number] 23:20:00 Test Item Value Reference Range Interpretation Comments SODIUM (BEAKER) 140 meq/L 136-145 (test code = 381) POTASSIUM (BEAKER) 4.3 meq/L 3.5-5.1 (test code = 379) CHLORIDE (BEAKER) 99 meq/L 98-107 (test code = 382) CO2 (BEAKER) (test 33 meq/L 22-29 H code = 355) BLOOD UREA NITROGEN 41 mg/dL 7-21 H (BEAKER) (test code = 354) CREATININE (BEAKER) 0.96 mg/dL 0.57-1.25 (test code = 358) GLUCOSE RANDOM 292 mg/dL 70-105 H (BEAKER) (test code = 652) CALCIUM (BEAKER) 7.3 mg/dL 8.4-10.2 L (test code = 697) EGFR (BEAKER) (test 77 mL/min/1.73 ESTIMA TYRA GFR IS code = 1092) sq m NOT ACCURATE CREATININE CLEARANCE IN PREDICTING GLOMERULAR FILTRATION RATE . ESTIMATED GFR I S NOT APPLICABLE FOR DIALYSIS PATIEN TS. [employer] Affairs Internship ID - DBLactic acid, [id number] 23:14:00 Test Item Value Reference Range Interpretation Comments Lactate, Venous (test code = 1.78 mmol/L 0.5-2.2 2872) JERONIMO (test code = JERONIMO) [employer]ship ID - DB Lab Interpretation (test Normal code = 58092-8) [facility], [id number] 23:14:00 Test Item Value Reference Range Interpretation Comments LACTATE BLOOD VENOUS (2) (BEAKER) 1.78 mmol/L 0.50-2.20 (test code = 2872) [employer] Internship ID - DBType and screen, [id number] 17:43:00 Test Item Value Reference Range Interpretation Comments ABO/RH AUTOMATED (BEAKER) (test O POSITIVE code = 2260) Ab Scrn (test code = 890-4) NEGATIVE [facility]2020-10-24 17:01:00 Test Item Value Reference Range Interpretation Comments SARS-COV2/RT-PCR Negative Not Detected, (test code = Negative, See 67628-0) external report for linked test SARS-COV-2 [facility] PERFORMING LAB (test code = 58462-8) JERONIMO (test code = Negative result for [...] of detection for this assay is 800 copies/mL. This SARS CoV-2 test is a [...] revoked under Section 564(g) of the Act. Fact Sheet for Healthcare Providers:https://www.[employer]/sites/default/f pennie/product/documents/F act_Sheet_HC_Providers_L rvr_QNAW-NeL-4.pdf Fact Sheet for Healthcare Patients:https://www.[employer]/sites/default/fi les/product/documents/Fa ct_Sheet_Patients_Lyra_S ARS-CoV-2.pdf Performing Laboratory:[facility] [place] [address] [facility] ([facility])2020-10-24 17:01:00 Test Item Value Reference Range Interpretation Comments SARS-COV2/RT-PCR (test Negative Not Detected, Negative, code = 0438985) See external report for linked test SARS-COV-2 PERFORMING LAB [facility] (test code = 3438494) Negative result for this test determines that [...] 564(g) of the Act.Fact Sheet for Healthcare Providers:https://www.[employer]/sites/default/files/product/documents/Fact_Shee e_MB_Wtpykzrop_Okld_JCUI-TtN-6.pdfFact Sheet for Healthcare Patients:https://www.[employer]/sites/default/files/product/ documents/Grns_Qdqzi_Irhcngpx_Tbwp_WMPG-XzB-3.pdfPerforming Laboratory:[facility], [place] [address]RSUZGJ ACID, VENOUS 2020-10-24 16:50:00 Test Item Value Reference Range Interpretation Comments LACTATE BLOOD VENOUS (2) (BEAKER) 1.62 mmol/L 0.50-2.20 (test code = 2872) [employer] Internship ID - ANSHU CARTERlood gas, [id number] 11:57:00 Test Item Value Reference Range Interpretation Comments pH, Arterial (test code 7.45 7.35-7.45 = 2744-1) pCO2, Arterial (test 57 See_Comment H [Autom ated code = 2019-8) message] The system which generated this result transmitted reference range : 35 - 45 mm Hg. The reference range was not used to interpret this result as normal/abnormal . pO2, Arterial (test 60 See_Comment L [Automa tyra code = 2703-7) message] The system which generated this result transmitted reference range : 80 - 90 mm Hg. The reference range was not used to interpret this result as normal/abnormal . O2 Sat, Arterial (test 92.2 % 96-97 L code = 2708-6) HCO3, Arterial (test 39 mmol/L 21-29 H code = 1960-4) Base Excess, Arterial 12.5 mmol/L -2-3 H (test code = 1925-7) Patient Temperature 36.4 (test code = 8310-5) FIO2 (test code = 1819) 36 Lab Interpretation Abnormal (test code = 68206-7) [facility], [id number] 11:57:00 Test Item Value Reference Range Interpretation Comments PH ARTERIAL (BEAKER) (test code = 7.45 7.35-7.45 383) PCO2 ARTERIAL (BEAKER) (test code 57 mm Hg 35-45 H = 384) PO2 ARTERIAL (BEAKER) (test code 60 mm Hg 80-90 L = 385) O2 SATURATION ARTERIAL (BEAKER) 92.2 % 96.0-97.0 L (test code = 386) HCO3 ARTERIAL (BEAKER) (test code 39 mmol/L 21-29 H = 388) BASE EXCESS ARTERIAL (BEAKER) 12.5 mmol/L -2.0-3.0 H (test code = 387) PATIENT TEMPERATURE (BEAKER) 36.4 (test code = 1818) FIO2 (BEAKER) (test code = 1819) 36.0 RAD, CHEST, 1 VIEW, NON [id number] 11:01:00Reason for exam:->shortness of breathShould this be performed at the bedside?->Yes [facility] : 1950 Sex: MFINAL REPORT CLINICAL HISTORY: shortness of breath TECHNIQUE: 1 view of the chest. COMPARISON: 10/23/2020 IMPRESSION: Spiculated right upper lung opacity is unchanged. Left apical emphysematous disease with adjacent parenchymal opacity is unchanged. Diffusely coarsened lung markings elsewhere are unchanged. Trace bilateral pleural effusions are unchanged. The cardiomedi astinal silhouette is magnified by technique with sternotomy wires. Signed: Abdelrahman Tayeport Verified Date/Time: 10/24/2020 11:01:27 Reading Location: [facility] Radiology Reading Room XR chest 1 view portable / bedside 2020-10-24 11:01:00Interface, External Ris In - 10/24/2020 11:03 AM CSTFINAL REPORT CLINICAL HISTORY: shortness of breath TECHNIQUE: 1 view of the chest. COMPARISON: 10/23/2020 IMPRESSION: Spiculatedright upper lung opacity is unchanged. Left apical emphysematous disease with adjacent parenchymal opacity is unchanged. Diffusely coarsened lung markings elsewhere are unchanged. Trace bilateral pleural effusions are unchanged. The cardiomediastinal silhouette is magnified by technique with sternotomy wires. Signed: Abdelrahman Tay MDReport Verified Date/Time: 10/24/2020 11:01:27 Reading Location: [facility] Radiology Reading Room Electronically signed by: ABDELRAHMAN TAY M.D. on 111:01 [facility] CenterLACTIC ACID, [id number] 10:54:00 Test Item Value Reference Range Interpretation Comments LACTATE BLOOD VENOUS (2) (BEAKER) 2.54 mmol/L 0.50-2.20 H (test code = 2872) [employer] Affairs Internship ID - [place] FBASIC METABOLIC [id number] 04:39:00 Test Item Value Reference Range Interpretation Comments SODIUM (BEAKER) 146 meq/L 136-145 H (test code = 381) POTASSIUM (BEAKER) 3.8 meq/L 3.5-5.1 (test code = 379) CHLORIDE (BEAKER) 97 meq/L 98-107 L (test code = 382) CO2 (BEAKER) (test 41 meq/L 22-29 HH code = 355) BLOOD UREA NITROGEN 31 mg/dL 7-21 H (BEAKER) (test code = 354) CREATININE (BEAKER) 0.77 mg/dL 0.57-1.25 (test code = 358) GLUCOSE RANDOM 117 mg/dL 70-105 H (BEAKER) (test code = 652) CALCIUM (BEAKER) 7.5 mg/dL 8.4-10.2 L (test code = 697) EGFR (BEAKER) (test 100 mL/min/1.73 ESTIM ATED GFR IS code = 1092) sq m NOT ACCURATE CREATININE CLEARANCE IN PREDICTING GLOMERULAR FILTRATION RATE . ESTIMATED GFR I S NOT APPLICABLE FOR DIALYSIS PATIEN TS. Regulatory Affairs Internship ID - [id number] 04:33:00 Test Item Value Reference Range Interpretation Comments MAGNESIUM (BEAKER) (test code = 2.0 mg/dL 1.6-2.6 627) Reg[employer] Affairs Internship ID - EDTRACIERAD, CHEST, 1 VIEW, NON [id number] 11:38:00Reason for exam:->Shortness of breath, evaluate for effusionShould this be performed at the bedside?->Yes [facility] : 1950 Sex: MFINAL REPORT TECHNIQUE: Frontal view of the chest. INDICATION: Shor tness of breath, evaluate for effusion COMPARISON:Prior day. IMPRESSION:Lines and hardware: Stable.Heart and mediastinum: Stable.Lungs and pleura: Stable pulmonary opacities. No large pleural effusion.Stable left apical pneumothorax.Soft tissues and bones: No acute abnormality. Signed: Ady Wiley MDReport Verified Date/Time: 10/23/2020 11:38:42 Reading Location: [facility] [id number] Consult Reading Room BASIC METABOLIC [id number] 06:54:00 Test Item Value Reference Range Interpretation Comments SODIUM (BEAKER) 143 meq/L 136-145 (test code = 381) POTASSIUM (BEAKER) 3.6 meq/L 3.5-5.1 (test code = 379) CHLORIDE (BEAKER) 97 meq/L 98-107 L (test code = 382) CO2 (BEAKER) (test 37 meq/L 22-29 H code = 355) BLOOD UREA NITROGEN 33 mg/dL 7-21 H (BEAKER) (test code = 354) CREATININE (BEAKER) 0.69 mg/dL 0.57-1.25 (test code = 358) GLUCOSE RANDOM 156 mg/dL 70-105 H (BEAKER) (test code = 652) CALCIUM (BEAKER) 7.1 mg/dL 8.4-10.2 L (test code = 697) EGFR (BEAKER) (test 113 mL/min/1.73 ESTIM ATED GFR IS code = 1092) sq m NOT ACCURATE CREATININE CLEARANCE IN PREDICTING GLOMERULAR FILTRATION RATE . ESTIMATED GFR I S NOT APPLICABLE FOR DIALYSIS PATIEN TS. Regulatory Affairs Internship ID - CHARLENE [id number] 06:53:00 Test Item Value Reference Range Interpretation Comments MAGNESIUM (BEAKER) (test code = 1.7 mg/dL 1.6-2.6 627) Reg[employer] Affairs Internship ID - CHARLENE MBLOOD GAS, [id number] 09:32:00 Test Item Value Reference Range Interpretation Comments PH ARTERIAL (BEAKER) (test code = 7.49 7.35-7.45 H 383) PCO2 ARTERIAL (BEAKER) (test code 51 mm Hg 35-45 H = 384) PO2 ARTERIAL (BEAKER) (test code 64 mm Hg 80-90 L = 385) O2 SATURATION ARTERIAL (BEAKER) 94.1 % 96.0-97.0 L (test code = 386) HCO3 ARTERIAL (BEAKER) (test code 38 mmol/L 21-29 H = 388) BASE EXCESS ARTERIAL (BEAKER) 12.7 mmol/L -2.0-3.0 H (test code = 387) PATIENT TEMPERATURE (BEAKER) 36.3 (test code = 1818) FIO2 (BEAKER) (test code = 1819) 32.0 CBC W/PLT COUNT & AUTO [id number] 05:31:00 Test Item Value Reference Range Interpretation Comments WHITE BLOOD CELL COUNT (BEAKER) 4.0 K/ L 3.5-10.5 (test code = 775) RED BLOOD CELL COUNT (BEAKER) 2.83 M/ L 4.63-6.08 L (test code = 761) HEMOGLOBIN (BEAKER) (test code = 9.1 GM/DL 13.7-17.5 L 410) HEMATOCRIT (BEAKER) (test code = 28.6 % 40.1-51.0 L 411) MEAN CORPUSCULAR VOLUME (BEAKER) 101.1 fL 79.0-92.2 H (test code = 753) MEAN CORPUSCULAR HEMOGLOBIN 32.2 pg 25.7-32.2 (BEAKER) (test code = 751) MEAN CORPUSCULAR HEMOGLOBIN CONC 31.8 GM/DL 32.3-36.5 L (BEAKER) (test code = 752) RED CELL DISTRIBUTION WIDTH 13.4 % 11.6-14.4 (BEAKER) (test code = 412) PLATELET COUNT (BEAKER) (test 138 K/CU MM 150-450 L code = 756) MEAN PLATELET VOLUME (BEAKER) 10.7 fL 9.4-12.4 (test code = 754) NUCLEATED RED BLOOD CELLS 0 /100 WBC 0-0 (BEAKER) (test code = 413) NEUTROPHILS RELATIVE PERCENT 82 % (BEAKER) (test code = 429) LYMPHOCYTES RELATIVE PERCENT 7 % (BEAKER) (test code = 430) MONOCYTES RELATIVE PERCENT 10 % (BEAKER) (test code = 431) EOSINOPHILS RELATIVE PERCENT 0 % (BEAKER) (test code = 432) BASOPHILS RELATIVE PERCENT 0 % (BEAKER) (test code = 437) NEUTROPHILS ABSOLUTE COUNT 3.26 K/ L 1.78-5.38 (BEAKER) (test code = 670) LYMPHOCYTES ABSOLUTE COUNT 0.28 K/ L 1.32-3.57 L (BEAKER) (test code = 414) MONOCYTES ABSOLUTE COUNT (BEAKER) 0.40 K/ L 0.30-0.82 (test code = 415) EOSINOPHILS ABSOLUTE COUNT 0.00 K/ L 0.04-0.54 L (BEAKER) (test code = 416) BASOPHILS ABSOLUTE COUNT (BEAKER) 0.00 K/ L 0.01-0.08 L (test code = 417) IMMATURE GRANULOCYTES-RELATIVE 1 % 0-1 PERCENT (BEAKER) (test code = 2801) BASIC METABOLIC [id number] 05:25:00 Test Item Value Reference Range Interpretation Comments SODIUM (BEAKER) 146 meq/L 136-145 H (test code = 381) POTASSIUM (BEAKER) 3.8 meq/L 3.5-5.1 (test code = 379) CHLORIDE (BEAKER) 97 meq/L 98-107 L (test code = 382) CO2 (BEAKER) (test 42 meq/L 22-29 HH code = 355) BLOOD UREA NITROGEN 32 mg/dL 7-21 H (BEAKER) (test code = 354) CREATININE (BEAKER) 0.77 mg/dL 0.57-1.25 (test code = 358) GLUCOSE RANDOM 107 mg/dL 70-105 H (BEAKER) (test code = 652) CALCIUM (BEAKER) 7.7 mg/dL 8.4-10.2 L (test code = 697) EGFR (BEAKER) (test 100 mL/min/1.73 ESTIM ATED GFR IS code = 1092) sq m NOT ACCURATE CREATININE CLEARANCE IN PREDICTING GLOMERULAR FILTRATION RATE . ESTIMATED GFR I S NOT APPLICABLE FOR DIALYSIS PATIEN TS. Regulatory Affairs Internship ID - [id number] 05:20:00 Test Item Value Reference Range Interpretation Comments MAGNESIUM (BEAKER) (test code = 1.7 mg/dL 1.6-2.6 627) Regulatory Affairs Internship ID - EDASIECG 12 [id number] 10:35:49Interface, External Ris In - 10/21/2020 10:35 AM CSTVentricular Rate 48 BPMAtrial Rate 48 BPMP-R Interval 148 msQRS Duration 86 msQ-T Interval 446 msQTC Calculation(Bazett) 398 msP [place] 72 degreesR [place] 73 degreesT [place] 59 degreesSinus bradycardia with marked sinus arrhythmiaNonspecific T wave abnormalityAbnormal ECGWhen compared with ECG of 18-OCT-2020 09:48,heart rate is lowerConfirmed by Alan Bentley ([id number]) on 10/21/2020 10:35:46 [facility] [id number] 05:23:00 Test Item Value Reference Range Interpretation Comments SODIUM (BEAKER) 143 meq/L 136-145 (test code = 381) POTASSIUM (BEAKER) 4.2 meq/L 3.5-5.1 (test code = 379) CHLORIDE (BEAKER) 101 meq/L 98-107 (test code = 382) CO2 (BEAKER) (test 34 meq/L 22-29 H code = 355) BLOOD UREA NITROGEN 26 mg/dL 7-21 H (BEAKER) (test code = 354) CREATININE (BEAKER) 0.78 mg/dL 0.57-1.25 (test code = 358) GLUCOSE RANDOM 137 mg/dL 70-105 H (BEAKER) (test code = 652) CALCIUM (BEAKER) 7.8 mg/dL 8.4-10.2 L (test code = 697) EGFR (BEAKER) (test 98 mL/min/1.73 ESTIMA TYRA GFR IS code = 1092) sq m NOT ACCURATE CREATININE CLEARANCE IN PREDICTING GLOMERULAR FILTRATION RATE . ESTIMATED GFR I S NOT APPLICABLE FOR DIALYSIS PATIEN TS. Regulatory Affairs Internship ID - [id number] 05:21:00 Test Item Value Reference Range Interpretation Comments MAGNESIUM (BEAKER) (test code = 1.7 mg/dL 1.6-2.6 627) Regulatory Affairs Internship ID - EDASICBC W/PLT COUNT & AUTO [id number] 05:10:00 Test Item Value Reference Range Interpretation Comments WHITE BLOOD CELL COUNT (BEAKER) 4.5 K/ L 3.5-10.5 (test code = 775) RED BLOOD CELL COUNT (BEAKER) 2.75 M/ L 4.63-6.08 L (test code = 761) HEMOGLOBIN (BEAKER) (test code = 9.0 GM/DL 13.7-17.5 L 410) HEMATOCRIT (BEAKER) (test code = 27.4 % 40.1-51.0 L 411) MEAN CORPUSCULAR VOLUME (BEAKER) 99.6 fL 79.0-92.2 H (test code = 753) MEAN CORPUSCULAR HEMOGLOBIN 32.7 pg 25.7-32.2 H (BEAKER) (test code = 751) MEAN CORPUSCULAR HEMOGLOBIN CONC 32.8 GM/DL 32.3-36.5 (BEAKER) (test code = 752) RED CELL DISTRIBUTION WIDTH 13.4 % 11.6-14.4 (BEAKER) (test code = 412) PLATELET COUNT (BEAKER) (test 113 K/CU MM 150-450 L code = 756) MEAN PLATELET VOLUME (BEAKER) 11.0 fL 9.4-12.4 (test code = 754) NUCLEATED RED BLOOD CELLS 0 /100 WBC 0-0 (BEAKER) (test code = 413) NEUTROPHILS RELATIVE PERCENT 86 % (BEAKER) (test code = 429) LYMPHOCYTES RELATIVE PERCENT 6 % (BEAKER) (test code = 430) MONOCYTES RELATIVE PERCENT 7 % (BEAKER) (test code = 431) EOSINOPHILS RELATIVE PERCENT 0 % (BEAKER) (test code = 432) BASOPHILS RELATIVE PERCENT 0 % (BEAKER) (test code = 437) NEUTROPHILS ABSOLUTE COUNT 3.90 K/ L 1.78-5.38 (BEAKER) (test code = 670) LYMPHOCYTES ABSOLUTE COUNT 0.29 K/ L 1.32-3.57 L (BEAKER) (test code = 414) MONOCYTES ABSOLUTE COUNT (BEAKER) 0.31 K/ L 0.30-0.82 (test code = 415) EOSINOPHILS ABSOLUTE COUNT 0.00 K/ L 0.04-0.54 L (BEAKER) (test code = 416) BASOPHILS ABSOLUTE COUNT (BEAKER) 0.00 K/ L 0.01-0.08 L (test code = 417) IMMATURE GRANULOCYTES-RELATIVE 0 % 0-1 PERCENT (BEAKER) (test code = 2801) B-type Natriuretic Factor (BNP)2020-10-21 05:08:00 Test Item Value Reference Range Interpretation Comments BNP (test code = 52909-6) 1896 pg/mL 0-100 H JERONIMO (test code = JERONIMO) [employer] [facility] ID - DB Lab Interpretation (test Abnormal code = 51898-2) [facility]10[facility]21 05:08:00 Test Item Value Reference Range Interpretation Comments B-TYPE NATRIURETIC PEPTIDE 1896 pg/mL 0-100 H (BEAKER) (test code = 700) [employer] [facility] ID - DBTroponin [id number] 18:46:00 Test Item Value Reference Range Interpretation Comments Troponin I (test code = 0.01 ng/mL 0-0.03 23474-5) JERONIMO (test code = JERONIMO) Troponin I [...] disease, and persistent tachyarrhythmia.Opera tor ID - DB Lab Interpretation (test Normal code = 68723-7) [id number]00 Test Item Value Reference Range Interpretation Comments TROPONIN I (BEAKER) (test code = 0.01 ng/mL 0.00-0.03 397) Troponin I (TnI) levels must be [...] failure, acidosis, acute neurological disease, and persistent tachyarrhythmia.[employer] [facility] ID - DBHeparin antibody 2020-10-20 12:24:00 Test Item Value Reference Range Interpretation Comments Heparin Ab (test code = Negative Negative 3267-2) Heparin Antibody Optical 0.048 <0.400 Density (test code = 2659) JERONIMO (test code = JERONIMO) Probability of HIT based on scoring system: 6-8 = High probability; 4-5 = intermediate probability; 0-3 = low probability Lab Interpretation (test Normal code = 18542-3) [facility] [id number] 12:24:00 Test Item Value Reference Range Interpretation Comments HEPARIN ANTIBODY (BEAKER) (test code Negative Negative = 646) HEPARIN ANTIBODY OD (BEAKER) (test 0.048 <0.400 code = 2659) Probability of HIT based on scoring system: 6-8 = High probability; 4-5 = intermediate probability;0-3 = low [id number] 09:02:00 Test Item Value Reference Range Interpretation Comments Ferritin (test code = 430.17 ng/mL 5-275 H 2276-4) JERONIMO (test code = JERONIMO) [employer] Internship ID - ADMIN Lab Interpretation (test Abnormal code = 76337-6) [facility] and [id number] 09:02:00 Test Item Value Reference Range Interpretation Comments Vitamin B12 (test 336 pg/mL 213-816 code = 2132-9) Folate (test code = 9.20 ng/mL See_Comment [Automa tyra 2284-8) message] The system which generated this result transmit tyra reference range : >=7.00. The reference range was not used to interpret this result as normal/abnormal . JERONIMO (test code = JERONIMO) Reg[employer] Affairs Internship ID - ADMIN Lab Interpretation Normal (test code = 77278-9) [facility] 09:02:00 Test Item Value Reference Range Interpretation Comments FERRITIN (BEAKER) (test code = 430.17 ng/mL 5.00-275.00 H 361) [employer] Internship ID - ADMINVITAMIN B12 AND [id number] 09:02:00 Test Item Value Reference Range Interpretation Comments VITAMIN B12 (BEAKER) 336 pg/mL 213-816 (test code = 774) FOLATE (BEAKER) 9.20 ng/mL See_Comment [Automated message] (test code = 362) The system which generated this result transmitted ref erence range: >=7.00. The reference range was not used to interpr et this result as normal/abnormal . Regulatory Affairs Internship ID - ADMINIron, TIBC, % sat. (without ferritin)2020-10-20 08:27:00 Test Item Value Reference Range Interpretation Comments Iron (test code = 2498-4) 57.0 ug/dL 40-160 TIBC (test code = 2500-7) 148 ug/dL 250-450 L Iron % Saturation (test 39 % 20-55 code = 2502-3) JERONIMO (test code = JERONIMO) [employer] Affairs Internship ID - ADMIN Lab Interpretation (test Abnormal code = 62594-8) [facility] TIBC, % SAT. (WITHOUT FERRITIN)2020-10-20 08:27:00 Test Item Value Reference Range Interpretation Comments IRON (BEAKER) (test code = 547) 57.0 ug/dL 40.0-160.0 TOTAL IRON BINDING CAPACITY 148 ug/dL 250-450 L (BEAKER) (test code = 769) IRON % SATURATION (2) (BEAKER) 39 % 20-55 (test code = 0920) [employer] Affairs Internship ID - ADMINBASIC METABOLIC [id number] 08:22:00 Test Item Value Reference Range Interpretation Comments SODIUM (BEAKER) 144 meq/L 136-145 (test code = 381) POTASSIUM (BEAKER) 4.4 meq/L 3.5-5.1 (test code = 379) CHLORIDE (BEAKER) 106 meq/L 98-107 (test code = 382) CO2 (BEAKER) (test 31 meq/L 22-29 H code = 355) BLOOD UREA NITROGEN 19 mg/dL 7-21 (BEAKER) (test code = 354) CREATININE (BEAKER) 0.78 mg/dL 0.57-1.25 (test code = 358) GLUCOSE RANDOM 146 mg/dL 70-105 H (BEAKER) (test code = 652) CALCIUM (BEAKER) 7.9 mg/dL 8.4-10.2 L (test code = 697) EGFR (BEAKER) (test 98 mL/min/1.73 ESTIMA TYRA GFR IS code = 1092) sq m NOT ACCURATE CREATININE CLEARANCE IN PREDICTING GLOMERULAR FILTRATION RATE . ESTIMATED GFR I S NOT APPLICABLE FOR DIALYSIS PATIEN TS. Regulatory Affairs Internship ID - [id number] 08:19:00 Test Item Value Reference Range Interpretation Comments MAGNESIUM (BEAKER) (test code = 1.4 mg/dL 1.6-2.6 L 627) [employer] Affairs Internship ID - ADMINCBC W/PLT COUNT & AUTO [id number] 08:10:00 Test Item Value Reference Range Interpretation Comments WHITE BLOOD CELL COUNT (BEAKER) 3.0 K/ L 3.5-10.5 L (test code = 775) RED BLOOD CELL COUNT (BEAKER) 2.56 M/ L 4.63-6.08 L (test code = 761) HEMOGLOBIN (BEAKER) (test code = 8.2 GM/DL 13.7-17.5 L 410) HEMATOCRIT (BEAKER) (test code = 26.2 % 40.1-51.0 L 411) MEAN CORPUSCULAR VOLUME (BEAKER) 102.3 fL 79.0-92.2 H (test code = 753) MEAN CORPUSCULAR HEMOGLOBIN 32.0 pg 25.7-32.2 (BEAKER) (test code = 751) MEAN CORPUSCULAR HEMOGLOBIN CONC 31.3 GM/DL 32.3-36.5 L (BEAKER) (test code = 752) RED CELL DISTRIBUTION WIDTH 13.5 % 11.6-14.4 (BEAKER) (test code = 412) PLATELET COUNT (BEAKER) (test code 80 K/CU MM 150-450 L = 756) MEAN PLATELET VOLUME (BEAKER) 10.3 fL 9.4-12.4 (test code = 754) NUCLEATED RED BLOOD CELLS (BEAKER) 0 /100 WBC 0-0 (test code = 413) NEUTROPHILS RELATIVE PERCENT 87 % (BEAKER) (test code = 429) LYMPHOCYTES RELATIVE PERCENT 7 % (BEAKER) (test code = 430) MONOCYTES RELATIVE PERCENT 5 % (BEAKER) (test code = 431) EOSINOPHILS RELATIVE PERCENT 0 % (BEAKER) (test code = 432) BASOPHILS RELATIVE PERCENT 0 % (BEAKER) (test code = 437) NEUTROPHILS ABSOLUTE COUNT 2.64 K/ L 1.78-5.38 (BEAKER) (test code = 670) LYMPHOCYTES ABSOLUTE COUNT 0.20 K/ L 1.32-3.57 L (BEAKER) (test code = 414) MONOCYTES ABSOLUTE COUNT (BEAKER) 0.16 K/ L 0.30-0.82 L (test code = 415) EOSINOPHILS ABSOLUTE COUNT 0.00 K/ L 0.04-0.54 L (BEAKER) (test code = 416) BASOPHILS ABSOLUTE COUNT (BEAKER) 0.00 K/ L 0.01-0.08 L (test code = 417) IMMATURE GRANULOCYTES-RELATIVE 1 % 0-1 PERCENT (BEAKER) (test code = 2801) Tissue [id number] 18:00:00 Test Item Value Reference Range Interpretation Comments Case Report (test code Surgical Pathology = 104) Report Case: [id number] Authorizing Provider: William Reynoso, Collected: 10/17/2020 08:44 AM Ordering Location: [address] Received: 10/17/2020 01:37 PM Service Pathologist: Margarita Avila MD Specimen: Colon Biopsy, Random DIAGNOSIS (test code = y8tcgLSrVLOsl1bjIVDjnC 3220) FuZzEwMzNcZnRuYmpcdWMx IHtccnRmMVxlcGljOTIwMl gyclLiWFNarRLwI4Gpdxwb WEwbXB8aLQ0kuNkleBMbyU NvXVBbWxAvq0sht554lQLs b7vzHKXTdsniiAz0bNvlM3 1in6L6XnpwP85cwZOkXPmj aNCzoiykmcMpYGVNYB7URR LNQD5FV83lRfzMFRUCBtxa RFHtFPZiCV2JJOMXV60BGq fBYO3AKKMMVGfEBA3GJFQz HJLJF2HLDNbEQUfzSZTory 60ESN9JxFay2F0FZP9UPEs HECib7qvOKGkiBAnMtCaVr NcZnRuYmpcdWMxXGRlZmYw b2klm899wAWag3puBXYwVu G2fOClALGddKPtT976AJGt TFuqw9ytu3SmUEPwhCLfu5 H2FKMTzdkcjDo1qPlmU74b x3J7YdgxO8saWMBhDOClW8 RkJJ1oWRTiQxl5OEI3NCO2 NDWcMWExC9UvUA9wFVVcfF SwZVe3z9iuwGigAHLvAPM7 t3ndTPjfouAlRZ9uqx1jpG d0a3stjqHjGQCqUDYicNXJ YXTjI5TewSlqRm4unGq8jP fmIogtETX6Qpy1KZ9idk90 brt5iJfiSEIvgracZlP9PF ioSEYictjsYUo5OJmxBTOa qFD5GHJxbVVhV8VzERYiYG 0olfn8NDG3ZYypMJXzBxX1 NDBcaGVhZGVyeTcyMFxmb2 14EVS7ViGxIB5hD5Sea9L1 tE1zaPGwAJAseOTvVjCaWK Nfpy2dcLOaJBhmi8DqMVC7 geE2wZRpiDAlFZLvFxM2QL eyXL4hii60JTQxWBR3oc8d bGNccGdicmRyaGVhZFxwZ2 ZiJPZip574WXVkE5MxHICd q2G6eyPuLnLiAVRmmQV2vp E4UNUuEB7kdgsbg6jzQVyz VTlwISJqhwC1aeU7ZBOiiU ExW9GvvO5xFLQhYB3dcnqj k2beNYQ7SSuzOVMrATH2Lf KvRGXxe1Rjisn2VjNmq7Gx fGMsXYzzV78oa341OGReuc ZoS0lfyGBiethsgFMhiaux XXsfxdO8OSHsKXrpugvtXY IkZCosQ9icQtLoMPCspLdv HBvhl2GvHZHhKFQuHxQebA TfDNTbAft4YVRtcUUrGUKg VwSvK2mkrtozIpYFGNGkg2 gyI9iiwIKBtHKcX7QwHNld sqTdXHvsGBwwXcHiQIh1MP 26JUI5YNOdef99 CPT Code(s) (test code h1ewmNNlYKPwkVF1PgShCT = 3357) Rqp5rzw7HapVKwtKDuHNqc fFJjmrUasn83wWJ3jK19UP 2sCEAqViQ6SDSoviX8Ayq3 QQKsOCBjfLVcI720d0vjg6 ezpiEshBK6iFpsJACtNSXh AOceWJBvYkMbL1JvPFqxoL JwRHb9MrE7QGxzQZQhmy1= CLINICAL HISTORY (test s3effDCpBKEgtAF0AiSbBF code = 3356) Gwp7zct9XbhABmfOPsZEjq gRXjabNhsr21tIV3gI97LU 3hTOYjYkA5FOVtetI1Bvq3 ZKVnVQAfjMPyW931q8tuz5 vckkBcdIL9aDymSQWdFBXb KNuyLZKsZdBrCNNpm0GlTX ryI72te9kxQnBkVLIdSKCw V8npcpbcFWSkre2= SPECIMEN SOURCE (test i0ixrHVoOXHceZV6TeNaDG code = 3377) Bsw3zzp1SsbVQoaCVhIWeh uWJuhwMket29nOO1zY12ZD 5tTBCpQfS1RDVloqD2Wba1 FQFgVJDbuMIsQ386a1cvb5 mthaAgrIU2bWoxENKjYFDx NNrnGZCtYnFkZ63mb88iYo jfrKE8LZYvNW1vj79hqXBr fQ== GROSS DESCRIPTION (test t7einTIsCDIneFU6KjQkIC code = 3366) Tjj5xtb0SluIQovWZkURih tXRbwtKbvg75kND6eD34RX 8jLRAtRhE2IHZgczA4Ccl2 KCBfZCZurYKaG525c3smj4 cgwzGtdCL3oZqcVESaRYCh AJyeWXYuYoRoPoAlYEs6JQ BywP4vBb1mzSNsdB0vxDXx DTbgXGV0oDTgQRUhXAVsSV YmGS52U3LyezBfDWqgJJJn JNNafU0cNL42vUTqfiOyac EoIlWtvP5yBQCrt1GhqYxf eyJjNC4oHtUnbnJubUnjCP Ypyb1kcU5tZEjixmLvsWdr jlOohR5sa6bmyFdge7QbRF GuUIkdCF52esCyTKUtkKEs tmpvSI22ARkdDX4qOZdpKX 9fEDBxWAguZSCeI4KmT2T1 VO5iMRukGHXwIRDqfARcZX mgBNZ4As5csGNmZPVoklJ1 z4OmOSTkdCckp2vbPdRiyJ o2xaB9gR7sAYwuDLZpl4Cz dHRlIEExLiAgSkcvcGwgXH Bhcn0= MICROSCOPIC DESCRIPTION n4owsYRnRTAmpGR3DpClGT (test code = 3371) Piv4esm7CiuJGlcFLlAZtv fSAimpSqtq92hRG1sY46ZW 0zVOOdGfC0GTDvysF0Bvj1 MGXsSGInuWVhS378g2rkq2 jfvqBknKF1oTwkUITdBZGg EOgtOJTtHkOgFUKjZf9woR VkIFxwYXJ9 [facility] [id number] 18:00:00Surgical Pathology Report Case: [id number] Authorizing Provider: William Reynoso, Collected: 10/17/2020 08:44 AM OrderingLocation: [address] Received: 10/17/2020 01:37 PM Service Pathologist: Margarita Avila MD Specimen: Colon Biopsy, Random COLON, RANDOM BIOPSY: - NO SIGNIFICANT PATHOLOGIC ABNORMALITY Signing Pathologist Direct Phone Line: [phone] signed by Margarita Avila MD on 10/19/2020 at 6:00 [facility]/[id number] [id number] diagnosis: HematocheziaColon biopsy, randomReceived in formalin labeled with the patient's name, accession number and "colon biopsy, random" are two vidal-pink irregular biopsy tissue fragments measuring 0.4 x 0.3 x 0.3 cm in aggregate. The specimen is submitted in toto following filtration in cassette A1. JG/pl PerformedBASIC METABOLIC [id number] 04:37:00 Test Item Value Reference Range Interpretation Comments SODIUM (BEAKER) 141 meq/L 136-145 (test code = 381) POTASSIUM (BEAKER) 4.0 meq/L 3.5-5.1 (test code = 379) CHLORIDE (BEAKER) 107 meq/L 98-107 (test code = 382) CO2 (BEAKER) (test 26 meq/L 22-29 code = 355) BLOOD UREA NITROGEN 16 mg/dL 7-21 (BEAKER) (test code = 354) CREATININE (BEAKER) 0.83 mg/dL 0.57-1.25 (test code = 358) GLUCOSE RANDOM 181 mg/dL 70-105 H (BEAKER) (test code = 652) CALCIUM (BEAKER) 8.0 mg/dL 8.4-10.2 L (test code = 697) EGFR (BEAKER) (test 91 mL/min/1.73 ESTIMA TYRA GFR IS code = 1092) sq m NOT ACCURATE CREATININE CLEARANCE IN PREDICTING GLOMERULAR FILTRATION RATE . ESTIMATED GFR I S NOT APPLICABLE FOR DIALYSIS PATIEN TS. Regulatory Affairs Internship ID - CHARLENE MCBC W/PLT COUNT & AUTO [id number] 04:14:00 Test Item Value Reference Range Interpretation Comments WHITE BLOOD CELL COUNT (BEAKER) 2.6 K/ L 3.5-10.5 L (test code = 775) RED BLOOD CELL COUNT (BEAKER) 2.58 M/ L 4.63-6.08 L (test code = 761) HEMOGLOBIN (BEAKER) (test code = 8.4 GM/DL 13.7-17.5 L 410) HEMATOCRIT (BEAKER) (test code = 26.5 % 40.1-51.0 L 411) MEAN CORPUSCULAR VOLUME (BEAKER) 102.7 fL 79.0-92.2 H (test code = 753) MEAN CORPUSCULAR HEMOGLOBIN 32.6 pg 25.7-32.2 H (BEAKER) (test code = 751) MEAN CORPUSCULAR HEMOGLOBIN CONC 31.7 GM/DL 32.3-36.5 L (BEAKER) (test code = 752) RED CELL DISTRIBUTION WIDTH 13.6 % 11.6-14.4 (BEAKER) (test code = 412) PLATELET COUNT (BEAKER) (test code 57 K/CU MM 150-450 L = 756) MEAN PLATELET VOLUME (BEAKER) 10.4 fL 9.4-12.4 (test code = 754) NUCLEATED RED BLOOD CELLS (BEAKER) 0 /100 WBC 0-0 (test code = 413) NEUTROPHILS RELATIVE PERCENT 85 % (BEAKER) (test code = 429) LYMPHOCYTES RELATIVE PERCENT 9 % (BEAKER) (test code = 430) MONOCYTES RELATIVE PERCENT 5 % (BEAKER) (test code = 431) EOSINOPHILS RELATIVE PERCENT 0 % (BEAKER) (test code = 432) BASOPHILS RELATIVE PERCENT 0 % (BEAKER) (test code = 437) NEUTROPHILS ABSOLUTE COUNT 2.21 K/ L 1.78-5.38 (BEAKER) (test code = 670) LYMPHOCYTES ABSOLUTE COUNT 0.24 K/ L 1.32-3.57 L (BEAKER) (test code = 414) MONOCYTES ABSOLUTE COUNT (BEAKER) 0.13 K/ L 0.30-0.82 L (test code = 415) EOSINOPHILS ABSOLUTE COUNT 0.00 K/ L 0.04-0.54 L (BEAKER) (test code = 416) BASOPHILS ABSOLUTE COUNT (BEAKER) 0.00 K/ L 0.01-0.08 L (test code = 417) IMMATURE GRANULOCYTES-RELATIVE 0 % 0-1 PERCENT (BEAKER) (test code = 2801) TROPONIN [id number] 22:25:00 Test Item Value Reference Range Interpretation Comments TROPONIN I (BEAKER) (test code = 0.03 ng/mL 0.00-0.03 397) Troponin I (TnI) levels must be [...] failure, acidosis, acute neurological disease, and persistent tachyarrhythmia.Regulatory Affairs Internship ID - BSBLOOD GAS, ARTERIAL 2020-10-18 11:42:00 Test Item Value Reference Range Interpretation Comments PH ARTERIAL (BEAKER) (test code = 7.34 7.35-7.45 L 383) PCO2 ARTERIAL (BEAKER) (test code 49 mm Hg 35-45 H = 384) PO2 ARTERIAL (BEAKER) (test code 45 mm Hg 80-90 L = 385) O2 SATURATION ARTERIAL (BEAKER) 78.2 % 96.0-97.0 L (test code = 386) HCO3 ARTERIAL (BEAKER) (test code 26 mmol/L 21-29 = 388) BASE EXCESS ARTERIAL (BEAKER) -0.4 mmol/L -2.0-3.0 (test code = 387) PATIENT TEMPERATURE (BEAKER) 36.6 (test code = 1818) FIO2 (BEAKER) (test code = 1819) 28.0 RAD, CHEST, 1 VIEW, NON [id number] 11:20:00Reason for exam:->sob coughShould this be performed at the bedside?->Yes [facility] CENTERName: IMELDA VALENCIA : 1950 Sex: MFINAL REPORT RAD, CHEST, 1 VIEW, NON DEPT INDICATION: sob cough COM PARISON: 10/16/20 FINDINGS: Portable frontal view of the chest. IMPRESSION: Support Lines: None Lungs and pleura: Unchanged airspace and interstitial opacities. Loculated left apic pneumothorax is stableHeart and mediastinum: Stable contours. Stable surgical changes.Additional findings: None. Signed: JR Valentin Robert MDReport Verified Date/Time: 10/18/2020 11:20:27 Reading Location: [facility] Radiology Reading Room B-TYPE NATRIURETIC FACTOR (BNP) 2020-10-18 11:03:00 Test Item Value Reference Range Interpretation Comments B-TYPE NATRIURETIC PEPTIDE 2277 pg/mL 0-100 H ([facility]) (test code = 700) Regulatory Affairs Internship ID - CHARLENE MTROPONIN [id number] 10:59:00 Test Item Value Reference Range Interpretation Comments TROPONIN I ([facility]) (test code = 0.01 ng/mL 0.00-0.03 397) Troponin I (TnI) levels must be [...] failure, acidosis, acute neurological disease, and persistent tachyarrhythmia.Regulatory Affairs Internship ID - CHARLENE MRAD, FOOT, MIN 3 VIEWS, [id number] 07:03:00Reason for exam:->Nonhealing toe wounds [facility] : 1950 Sex: MFINAL REPORT RAD, FOOT, MIN 3 VIEWS, RIGHT CLINICAL INDICATION: Nonhealing toe wounds COMPARISON: None FINDINGS: Frontal, oblique and lateral views of the right foot. IMPRESSION: Bones are demineralized. There is no fracture or malalignment. No focus of cortical disruption is identified. Superficial soft tissues are grossly unremarkable. Signed: JR Valentin Robert MDReport Verified Date/Time: 10/18/2020 07:03:14 Reading Location: [facility] Radiology Reading Room XR foot 3 views [id number] 07:03:00 Interface, External Ris In - 10/18/2020 7:05 AM CSTFINAL REPORT RAD, FOOT, MIN 3 VIEWS, RIGHT CLINICAL INDICATION: Nonhealing toe wounds COMPARISON: None FINDINGS: Frontal, oblique and lateral views of the right foot. IMPRESSION: Bones are demineralized. There is no fracture or malalignment. No focus of cortical disruption is identified. Superficial soft tissues are grossly unremarkable. Signed: JR Valentin Robert MDReport Verified Date/Time: 10/18/2020 07:03:14 Reading Location: [facility] Radiology [facility] [id number] 04:40:00 Test Item Value Reference Range Interpretation Comments SODIUM (BEAKER) 141 meq/L 136-145 (test code = 381) POTASSIUM (BEAKER) 4.0 meq/L 3.5-5.1 Specimen slightly (test code = 379) hemolyzed CHLORIDE (BEAKER) 112 meq/L 98-107 H (test code = 382) CO2 (BEAKER) (test 21 meq/L 22-29 L code = 355) BLOOD UREA NITROGEN 13 mg/dL 7-21 (BEAKER) (test code = 354) CREATININE (BEAKER) 0.76 mg/dL 0.57-1.25 Specimen slightly (test code = 358) hemolyzed GLUCOSE RANDOM 107 mg/dL 70-105 H (BEAKER) (test code = 652) CALCIUM (BEAKER) 8.1 mg/dL 8.4-10.2 L (test code = 697) EGFR (BEAKER) (test 101 mL/min/1.73 ESTIM ATED GFR IS code = 1092) sq m NOT ACCURATE CREATININE CLEARANCE IN PREDICTING GLOMERULAR FILTRATION RATE . ESTIMATED GFR I S NOT APPLICABLE FOR DIALYSIS PATIEN TS. Regulatory Affairs Internship ID - SMHemoglobin and [id number] 04:06:00 Test Item Value Reference Range Interpretation Comments Hemoglobin (test code 9.4 See_Comment L [Auto mated = 786-4) message] The system which generated this result transmit tyra reference range : 13.7 - 17.5 GM/ DL. The reference range was not u sed to interpret th is result as normal/abnormal . Hematocrit (test code 31.4 % 40.1-51 L = 4544-3) JERONIMO (test code = JERONIMO) Regulatory Affairs Internship ID - [id number] Lab Interpretation Abnormal (test code = 41878-8) [facility] AND [id number] 04:06:00 Test Item Value Reference Range Interpretation Comments HEMOGLOBIN (BEAKER) (test code = 9.4 GM/DL 13.7-17.5 L 410) HEMATOCRIT (BEAKER) (test code = 31.4 % 40.1-51.0 L 411) Regulatory Affairs Internship ID - [id number] AND [id number] 16:39:00 Test Item Value Reference Range Interpretation Comments HEMOGLOBIN (BEAKER) (test code = 9.7 GM/DL 13.7-17.5 L 410) HEMATOCRIT (BEAKER) (test code = 31.9 % 40.1-51.0 L 411) Regulatory Affairs Internship ID - [id number] ID - [id number] METABOLIC [id number] 05:06:00 Test Item Value Reference Range Interpretation Comments SODIUM (BEAKER) 143 meq/L 136-145 (test code = 381) POTASSIUM (BEAKER) 4.2 meq/L 3.5-5.1 (test code = 379) CHLORIDE (BEAKER) 111 meq/L 98-107 H (test code = 382) CO2 (BEAKER) (test 21 meq/L 22-29 L code = 355) BLOOD UREA NITROGEN 13 mg/dL 7-21 (BEAKER) (test code = 354) CREATININE (BEAKER) 0.75 mg/dL 0.57-1.25 (test code = 358) GLUCOSE RANDOM 85 mg/dL 70-105 (BEAKER) (test code = 652) CALCIUM (BEAKER) 8.5 mg/dL 8.4-10.2 (test code = 697) EGFR (BEAKER) (test 103 mL/min/1.73 ESTIM ATED GFR IS code = 1092) sq m NOT ACCURATE CREATININE CLEARANCE IN PREDICTING GLOMERULAR FILTRATION RATE . ESTIMATED GFR I S NOT APPLICABLE FOR DIALYSIS PATIEN TS. Regulatory Affairs Internship ID - CHARLENE MHEMOGLOBIN AND [id number] 04:37:00 Test Item Value Reference Range Interpretation Comments HEMOGLOBIN (BEAKER) (test code = 10.6 GM/DL 13.7-17.5 L 410) HEMATOCRIT (BEAKER) (test code = 34.7 % 40.1-51.0 L 411) Regulatory Affairs Internship ID - [id number] ID - [id number] AND [id number] 14:24:00 Test Item Value Reference Range Interpretation Comments HEMOGLOBIN (BEAKER) (test code = 9.8 GM/DL 13.7-17.5 L 410) HEMATOCRIT (BEAKER) (test code = 30.4 % 40.1-51.0 L 411) Regulatory Affairs Internship ID - [id number] ID - [id number] ID - [id number], CHEST, 1 VIEW, NON [id number] 12:41:00Reason for exam:->copd, wheezing, diminished BSShould this be performed at the bedside?->Yes [facility] CENTERName: IMELDA VALENCIA : 1950 Sex: MFINAL REPORT TECHNIQUE: Frontal view of the chest. INDICATION: copd, wheezing, diminished BS COMPARISON:08/05/2020 and 10/13/2020 DISCUSSION:Limited evaluation due to portable technique. Lines and hardware: Overlying EKG leads are noted. Midline sternotomy changes are noted.Heart and mediastinum: StableLungs and pleura: Stable large left apical blebs/cysts. Stable right upper lobe emphysematous changes. Stable right posterior segment upper lobe dense opacification. Stable loculated small right pleural effusion. Stable diffuse interstitial scarring.Soft tissues and bones: No acute abnormality. IMPRESSION:Stable exam compared to CT chest dated 10/13/2020 allowing for d ifferences in modality. No new large consolidation noted.Stable advanced emphysematous changes with large left apical bleb. Stable dense consolidation within the posterior segment of the right upper lobe. Stable small loculated right pleural effusion. Stable diffuse interstitial scarring. Signed: Noman Arredondo MDReport Verified Date/Time: 10/16/2020 12:41:17 Reading Location: [facility] B1 C013T Transitional Reading Room SARS-COV2/RT-PCR ([facility])2020-10-16 09:23:00 Test Item Value Reference Range Interpretation Comments SARS-COV2/RT-PCR (test Negative Not Detected, Negative, code = 7753149) See external report for linked test SARS-COV-2 PERFORMING LAB [facility] (test code = 0610812) Negative result for this test determines that [...] 564(g) of the Act.Fact Sheet for Healthcare Providers:https://www.[employer]/sites/default/files/product/documents/Fact_Shee d_DG_Cynahmhfc_Pyev_YCIR-ShG-3.pdfFact Sheet for Healthcare Patients:https://www.[employer]/sites/default/files/product/ documents/Rpte_Ezdaf_Typodftr_Agxl_IONM-ViE-0.pdfPerforming Laboratory:[facility], [place] [address]HJHYQ METABOLIC PANEL 2020-10-16 03:01:00 Test Item Value Reference Range Interpretation Comments SODIUM (BEAKER) 139 meq/L 136-145 (test code = 381) POTASSIUM (BEAKER) 3.6 meq/L 3.5-5.1 (test code = 379) CHLORIDE (BEAKER) 108 meq/L 98-107 H (test code = 382) CO2 (BEAKER) (test 23 meq/L 22-29 code = 355) BLOOD UREA NITROGEN 17 mg/dL 7-21 (BEAKER) (test code = 354) CREATININE (BEAKER) 0.71 mg/dL 0.57-1.25 (test code = 358) GLUCOSE RANDOM 88 mg/dL 70-105 (BEAKER) (test code = 652) CALCIUM (BEAKER) 7.9 mg/dL 8.4-10.2 L (test code = 697) EGFR (BEAKER) (test 109 mL/min/1.73 ESTIM ATED GFR IS code = 1092) sq m NOT ACCURATE CREATININE CLEARANCE IN PREDICTING GLOMERULAR FILTRATION RATE . ESTIMATED GFR I S NOT APPLICABLE FOR DIALYSIS PATIEN TS. Regulatory Affairs Internship ID - CHARLENE [id number] 02:55:00 Test Item Value Reference Range Interpretation Comments MAGNESIUM (BEAKER) (test code = 1.6 mg/dL 1.6-2.6 627) [employer] Affairs Internship ID - CHARLENE MHEMOGLOBIN AND [id number] 23:43:00 Test Item Value Reference Range Interpretation Comments HEMOGLOBIN (BEAKER) (test code = 9.5 GM/DL 13.7-17.5 L 410) HEMATOCRIT (BEAKER) (test code = 29.6 % 40.1-51.0 L 411) Regulatory Affairs Internship ID - [id number] AND [id number] 17:05:00 Test Item Value Reference Range Interpretation Comments HEMOGLOBIN (BEAKER) (test code = 9.3 GM/DL 13.7-17.5 L 410) HEMATOCRIT (BEAKER) (test code = 29.6 % 40.1-51.0 L 411) Regulatory Affairs Internship ID - [id number] AND [id number] 10:47:00 Test Item Value Reference Range Interpretation Comments HEMOGLOBIN (BEAKER) (test code = 9.3 GM/DL 13.7-17.5 L 410) HEMATOCRIT (BEAKER) (test code = 29.8 % 40.1-51.0 L 411) [employer] Affairs Internship ID - [id number] level, [id number] 06:20:00 Test Item Value Reference Range Interpretation Comments Vancomycin Tr (test code = 15.2 ug/mL 06-07-3) JERONIMO (test code = JERONIMO) Regulatory Affairs Internship ID - EDASI Lab Interpretation (test Normal code = 11000-4) [facility] [id number] 06:20:00 Test Item Value Reference Range Interpretation Comments VANCOMYCIN TROUGH (BEAKER) (test 15.2 ug/mL 10.0-20.0 code = 522) Reg[employer] Affairs Internship ID - EDASIBASIC METABOLIC [id number] 05:21:00 Test Item Value Reference Range Interpretation Comments SODIUM (BEAKER) 137 meq/L 136-145 (test code = 381) POTASSIUM (BEAKER) 3.7 meq/L 3.5-5.1 (test code = 379) CHLORIDE (BEAKER) 108 meq/L 98-107 H (test code = 382) CO2 (BEAKER) (test 22 meq/L 22-29 code = 355) BLOOD UREA NITROGEN 25 mg/dL 7-21 H (BEAKER) (test code = 354) CREATININE (BEAKER) 0.82 mg/dL 0.57-1.25 (test code = 358) GLUCOSE RANDOM 77 mg/dL 70-105 (BEAKER) (test code = 652) CALCIUM (BEAKER) 8.0 mg/dL 8.4-10.2 L (test code = 697) EGFR (BEAKER) (test 93 mL/min/1.73 ESTIMA TYRA GFR IS code = 1092) sq m NOT ACCURATE CREATININE CLEARANCE IN PREDICTING GLOMERULAR FILTRATION RATE . ESTIMATED GFR I S NOT APPLICABLE FOR DIALYSIS PATIEN TS. Regulatory Affairs Internship ID - EDASICBC W/PLT COUNT & AUTO [id number] 05:02:00 Test Item Value Reference Range Interpretation Comments WHITE BLOOD CELL COUNT (BEAKER) 7.1 K/ L 3.5-10.5 (test code = 775) RED BLOOD CELL COUNT (BEAKER) 3.04 M/ L 4.63-6.08 L (test code = 761) HEMOGLOBIN (BEAKER) (test code = 9.8 GM/DL 13.7-17.5 L 410) HEMATOCRIT (BEAKER) (test code = 30.5 % 40.1-51.0 L 411) MEAN CORPUSCULAR VOLUME (BEAKER) 100.3 fL 79.0-92.2 H (test code = 753) MEAN CORPUSCULAR HEMOGLOBIN 32.2 pg 25.7-32.2 (BEAKER) (test code = 751) MEAN CORPUSCULAR HEMOGLOBIN CONC 32.1 GM/DL 32.3-36.5 L (BEAKER) (test code = 752) RED CELL DISTRIBUTION WIDTH 14.0 % 11.6-14.4 (BEAKER) (test code = 412) PLATELET COUNT (BEAKER) (test code 81 K/CU MM 150-450 L = 756) MEAN PLATELET VOLUME (BEAKER) 10.6 fL 9.4-12.4 (test code = 754) NUCLEATED RED BLOOD CELLS (BEAKER) 0 /100 WBC 0-0 (test code = 413) NEUTROPHILS RELATIVE PERCENT 86 % (BEAKER) (test code = 429) LYMPHOCYTES RELATIVE PERCENT 6 % (BEAKER) (test code = 430) MONOCYTES RELATIVE PERCENT 8 % (BEAKER) (test code = 431) EOSINOPHILS RELATIVE PERCENT 0 % (BEAKER) (test code = 432) BASOPHILS RELATIVE PERCENT 0 % (BEAKER) (test code = 437) NEUTROPHILS ABSOLUTE COUNT 6.13 K/ L 1.78-5.38 H (BEAKER) (test code = 670) LYMPHOCYTES ABSOLUTE COUNT 0.39 K/ L 1.32-3.57 L (BEAKER) (test code = 414) MONOCYTES ABSOLUTE COUNT (BEAKER) 0.55 K/ L 0.30-0.82 (test code = 415) EOSINOPHILS ABSOLUTE COUNT 0.00 K/ L 0.04-0.54 L (BEAKER) (test code = 416) BASOPHILS ABSOLUTE COUNT (BEAKER) 0.00 K/ L 0.01-0.08 L (test code = 417) IMMATURE GRANULOCYTES-RELATIVE 0 % 0-1 PERCENT (BEAKER) (test code = 2801) BASIC METABOLIC [id number] 22:40:00 Test Item Value Reference Range Interpretation Comments SODIUM (BEAKER) 139 meq/L 136-145 (test code = 381) POTASSIUM (BEAKER) 3.6 meq/L 3.5-5.1 (test code = 379) CHLORIDE (BEAKER) 107 meq/L 98-107 (test code = 382) CO2 (BEAKER) (test 23 meq/L 22-29 code = 355) BLOOD UREA NITROGEN 28 mg/dL 7-21 H (BEAKER) (test code = 354) CREATININE (BEAKER) 0.91 mg/dL 0.57-1.25 (test code = 358) GLUCOSE RANDOM 98 mg/dL 70-105 (BEAKER) (test code = 652) CALCIUM (BEAKER) 8.0 mg/dL 8.4-10.2 L (test code = 697) EGFR (BEAKER) (test 82 mL/min/1.73 ESTIMA TYRA GFR IS code = 1092) sq m NOT ACCURATE CREATININE CLEARANCE IN PREDICTING GLOMERULAR FILTRATION RATE . ESTIMATED GFR I S NOT APPLICABLE FOR DIALYSIS PATIEN TS. Regulatory Affairs Internship ID - DBPROTHROMBIN TIME/[id number] 22:33:00 Test Item Value Reference Range Interpretation Comments PROTIME (BEAKER) 15.3 seconds 11.9-14.2 H (test code = 759) INR (BEAKER) (test 1.24 See_Comment [Automat ed message] code = 370) The system [employer] generated this result transmitted ref erence range: <=5.90. The reference range was not used to int erpret this result as normal/abnormal . Effective 01/14/2019: PT Reference Range ChangeNew: 11.9-14.2 Previous: 11.7- 14.7RECOMMENDED COUMADIN/WARFARIN INR THERAPY RANGESSTANDARD DOSE: 2.0-3.0 Includes: PROPHYLAXIS for venous thrombosis, systemic embolization; TREATMENT for venous thrombosis and/or pulmonary embolus.HIGH RISK: Target INR is2.5-3.5 for patients wiht mechanical heart valves.CBC (Hemogram only)2020-10-14 22:22:00 Test Item Value Reference Range Interpretation Comments WBC (test code = 6690-2) 9.1 See_Comment [A utomated message] The system [employer] generated this result transmitted ref erence range: 3.5 - 10 .5 K/L. The refe rence range was not u sed to interpret this result as normal/abnor mal. RBC (test code = 789-8) 3.32 See_Comment L [Au tomated message] The system [employer] generated this result transmitted ref erence range: 4.63 - 6 .08 M/L. The refe rence range was not u sed to interpret this result as normal/abnor mal. MCHC (test code = 786-4) 31.6 See_Comment L [A utomated message] The system [employer] generated this result transmitted ref erence range: 32.3 - 3 6.5 GM/DL. The refe rence range was not u sed to interpret this result as normal/abnor mal. Hematocrit (test code = 34.2 % 40.1-51 L 4544-3) MCV (test code = 787-2) 103.0 fL 79-92.2 H MCH (test code = 785-6) 32.5 pg 25.7-32.2 H RDW (test code = 788-0) 13.9 % 11.6-14.4 Platelets (test code = 93 See_Comment L [Aut omated message] 777-3) The system [employer] generated this result transmitted ref erence range: 150 - 45 0 K/CU MM. The referen ce range was not u sed to interpret this result as normal/abnor mal. MPV (test code = 10.9 fL 9.4-12.4 19121-9) nRBC (test code = 413) 0 See_Comment [Aut omated message] The system [employer] generated this result transmitted ref erence range: 0 - 0 /1 00 WBC. The refere nce range was not u sed to interpret this result as normal/abnor mal. Lab Interpretation (test Abnormal code = 42711-7) [facility] (HEMOGRAM ONLY)2020-10-14 22:22:00 Test Item Value Reference Range Interpretation Comments WHITE BLOOD CELL COUNT (BEAKER) 9.1 K/ L 3.5-10.5 (test code = 775) RED BLOOD CELL COUNT (BEAKER) 3.32 M/ L 4.63-6.08 L (test code = 761) HEMOGLOBIN (BEAKER) (test code = 10.8 GM/DL 13.7-17.5 L 410) HEMATOCRIT (BEAKER) (test code = 34.2 % 40.1-51.0 L 411) MEAN CORPUSCULAR VOLUME (BEAKER) 103.0 fL 79.0-92.2 H (test code = 753) MEAN CORPUSCULAR HEMOGLOBIN 32.5 pg 25.7-32.2 H (BEAKER) (test code = 751) MEAN CORPUSCULAR HEMOGLOBIN CONC 31.6 GM/DL 32.3-36.5 L (BEAKER) (test code = 752) RED CELL DISTRIBUTION WIDTH 13.9 % 11.6-14.4 (BEAKER) (test code = 412) PLATELET COUNT (BEAKER) (test code 93 K/CU MM 150-450 L = 756) MEAN PLATELET VOLUME (BEAKER) 10.9 fL 9.4-12.4 (test code = 754) NUCLEATED RED BLOOD CELLS (BEAKER) 0 /100 WBC 0-0 (test code = 413) Arterial doppler leg, [id number] 18:35:19Ejection FractionSLEH ECHO HEARTLAB MKCKESSON CPACSRight Impression1. The common femoral, profunda femoral, superficial femoral, popliteal,posterior tibial, peroneal and anterior tibial arteries are patent withtriphasic and biphasic Doppler waveforms throughout. Conclusions Summary Arterial duplex was performed on the right lower extremity. The arteries were adequately visualized. Calcification and some diffuse plaque was seen throughout the arteries. There were triphasic and biphasic Doppler waveforms throughout the arteries. Signature -- Velocities are measured in cm/s ; Diameters are measured in cm LE Duplex Measurements Right Left + + + + + + + + + + !Location ! !PSV !EDV !Waveform ! !PSV !EDV !Waveform ! + + + + + + +- + + + !Mid Common Femoral ! !133 ! ! ! +-------- + + + + + !Prox PFA ! !144 ! ! ! + + + + + + !Prox SFA ! !150 ! ! ! + + + + + + !Mid SFA ! !112 ! ! ! + + + + + + !Dist SFA ! !78.3 ! ! ! + + + -----+ + + !Prox Popliteal ! !44.3 ! ! ! + + + + + + !Dist Popliteal ! !61.9 ! ! ! + + + + + + !Prox KETTLE FRY COOK OPERATOR ! !75.7 ! ! ! + + + + + + !Mid KETTLE FRY COOK OPERATOR ! !57 ! ! ! + + + + + + !Dist KETTLE FRY COOK OPERATOR ! !58.5 ! ! ! + + + + + + !Prox RACHANA ! !56.5 ! ! ! + + + + + + !Mid RACHANA ! !49.6 ! ! ! + + + -------+ + + !Dist RACHANA ! !23.1 ! ! ! + + + + + + !Prox Peroneal ! !43.7 ! ! ! + + + + + + !Mid Peroneal ! !45.7 ! ! ! + + + + + + !Dist Peroneal ! !37.3 ! ! ! + + + + + + Interface, External Ris In - 10/14/2020 6:35 PM [facility] LAB - Lower Extremity Arterial Duplex Demographics Patient Name IMELDA VALENCIA Date of Study 10/14/2020 GENE Age 70 Visit Number [id number] Gender Male Accession Number [id number] Date of 1950 Referring Val Grady, Room Number 1122 Physician DO 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 Joanna Dunne T Interpreting Etta Cortés, Physician ProcedureType of Study: Extremities Arteries: Lower Extremities Arterial Duplex, ARTERIAL DOPPLER LEG, RIGHT. Indications for Study:S/P Angiogram.Patient Status:STAT.Study Location:Vascular Lab.Technical Quality:Adequate visualization.Risk FactorsHistory of Disease+ +----+ +!Diagnosis !Date!Comments !+ +----+ +!Hist ory/Risk ! !Right carotid endartectomy, AFIB, CAD, COPD, HTN, !!Factors: ! !HLD, Left BKA, stroke, current smoker !+ +----+ + ImpressionsRight Impression1. The common femoral, profunda femoral, superficial femoral, popliteal,posterior tibial, peroneal and anterior tibial arteries are patent withtriphasic and biphasic Doppler waveforms throughout. Conclusions Summary Arterial duplex was performed on the right lower extremity. The arteries were adequately visualized. Calcification and some diffuse plaque was seen throughoutthe arteries. There were triphasic and biphasic Doppler waveforms throughout the arteries. Signature Velocities are measured in cm/s ; Diameters are measured in cmLE Duplex Measurements Right Left + ---+ + + + + + + + + !Location ! !PSV !EDV !Waveform ! !PSV !EDV!Waveform ! + + +-------- + + + + + + + !Mid Common Femoral ! !133 ! ! ! + + + + + + !Prox PFA ! !144 ! ! ! + + + + + + !Prox SFA ! !150 ! ! ! + + + + + + !Mid SFA ! !112 ! ! ! + + + -----+ + + !Dist SFA ! !78.3 ! ! ! + + + + + + !Prox Popliteal ! !44.3 ! ! ! + + + + + + !Dist Popliteal ! !61.9 ! ! ! + + + + + + !Prox KETTLE FRY COOK OPERATOR ! !75.7 ! ! ! + + + + + + !Mid KETTLE FRY COOK OPERATOR ! !57 ! ! ! + + + + + + !Dist KETTLE FRY COOK OPERATOR ! !58.5 ! ! ! + + + + + + !ProxATA ! !56.5 ! ! ! + + + -------+ + + !Mid RACHANA ! !49.6 ! ! ! + + + + + + !Dist RACHANA ! !23.1 ! ! ! + + + + + + !Prox Peroneal ! !43.7 ! ! ! + + + + + + !Mid Peroneal ! !45.7 ! ! ! + + + + + + !Dist Peroneal ! !37.3 ! ! ! + + + + + +[facility]PROT[facility]/[id number] 10:36:00 Test Item Value Reference Range Interpretation Comments PROTIME (BEAKER) 15.4 seconds 11.9-14.2 H (test code = 759) INR (BEAKER) (test 1.27 See_Comment [Automat ed message] code = 370) The system [employer] generated this result transmitted ref erence range: <=5.90. The reference range was not used to int erpret this result as normal/abnormal . Effective 01/14/2019: PT Reference Range ChangeNew: 11.9-14.2 Previous: 11.7- 14.7RECOMMENDED COUMADIN/WARFARIN INR THERAPY RANGESSTANDARD DOSE: 2.0-3.0 Includes: PROPHYLAXIS for venous thrombosis, systemic embolization; TREATMENT for venous thrombosis and/or pulmonary embolus.HIGH RISK: Target INR is2.5-3.5 for patients wiht mechanical heart valves.BASIC METABOLIC [id number] 07:56:00 Test Item Value Reference Range Interpretation Comments SODIUM (BEAKER) 140 meq/L 136-145 (test code = 381) POTASSIUM (BEAKER) 3.8 meq/L 3.5-5.1 (test code = 379) CHLORIDE (BEAKER) 105 meq/L 98-107 (test code = 382) CO2 (BEAKER) (test 25 meq/L 22-29 code = 355) BLOOD UREA NITROGEN 32 mg/dL 7-21 H (BEAKER) (test code = 354) CREATININE (BEAKER) 0.91 mg/dL 0.57-1.25 (test code = 358) GLUCOSE RANDOM 76 mg/dL 70-105 (BEAKER) (test code = 652) CALCIUM (BEAKER) 8.4 mg/dL 8.4-10.2 (test code = 697) EGFR (BEAKER) (test 82 mL/min/1.73 ESTIMA TYRA GFR IS code = 1092) sq m NOT ACCURATE CREATININE CLEARANCE IN PREDICTING GLOMERULAR FILTRATION RATE . ESTIMATED GFR I S NOT APPLICABLE FOR DIALYSIS PATIEN TS. [employer] Internship ID - PIAYA LCBC W/PLT COUNT & AUTO [id number] 07:54:00 Test Item Value Reference Range Interpretation Comments WHITE BLOOD CELL COUNT (BEAKER) 8.0 K/ L 3.5-10.5 (test code = 775) RED BLOOD CELL COUNT (BEAKER) 3.39 M/ L 4.63-6.08 L (test code = 761) HEMOGLOBIN (BEAKER) (test code = 11.2 GM/DL 13.7-17.5 L 410) HEMATOCRIT (BEAKER) (test code = 35.0 % 40.1-51.0 L 411) MEAN CORPUSCULAR VOLUME (BEAKER) 103.2 fL 79.0-92.2 H (test code = 753) MEAN CORPUSCULAR HEMOGLOBIN 33.0 pg 25.7-32.2 H (BEAKER) (test code = 751) MEAN CORPUSCULAR HEMOGLOBIN CONC 32.0 GM/DL 32.3-36.5 L (BEAKER) (test code = 752) RED CELL DISTRIBUTION WIDTH 14.0 % 11.6-14.4 (BEAKER) (test code = 412) PLATELET COUNT (BEAKER) (test 103 K/CU MM 150-450 L code = 756) MEAN PLATELET VOLUME (BEAKER) 10.7 fL 9.4-12.4 (test code = 754) NUCLEATED RED BLOOD CELLS 0 /100 WBC 0-0 (BEAKER) (test code = 413) NEUTROPHILS RELATIVE PERCENT 90 % (BEAKER) (test code = 429) LYMPHOCYTES RELATIVE PERCENT 6 % (BEAKER) (test code = 430) MONOCYTES RELATIVE PERCENT 5 % (BEAKER) (test code = 431) EOSINOPHILS RELATIVE PERCENT 0 % (BEAKER) (test code = 432) BASOPHILS RELATIVE PERCENT 0 % (BEAKER) (test code = 437) NEUTROPHILS ABSOLUTE COUNT 7.15 K/ L 1.78-5.38 H (BEAKER) (test code = 670) LYMPHOCYTES ABSOLUTE COUNT 0.44 K/ L 1.32-3.57 L (BEAKER) (test code = 414) MONOCYTES ABSOLUTE COUNT (BEAKER) 0.37 K/ L 0.30-0.82 (test code = 415) EOSINOPHILS ABSOLUTE COUNT 0.00 K/ L 0.04-0.54 L (BEAKER) (test code = 416) BASOPHILS ABSOLUTE COUNT (BEAKER) 0.01 K/ L 0.01-0.08 (test code = 417) IMMATURE GRANULOCYTES-RELATIVE 0 % 0-1 PERCENT (BEAKER) (test code = 2801) LACTIC ACID, [id number] 07:46:00 Test Item Value Reference Range Interpretation Comments LACTATE BLOOD VENOUS (2) (BEAKER) 0.93 mmol/L 0.50-2.20 (test code = 2872) [employer] Affairs Internship ID - DEQUAN [id number] 05:56:00 Test Item Value Reference Range Interpretation Comments PTT (test code = 68.7 See_Comment H [Automated message] 76418-1) The system [employer] generated this result transmitted ref erence range: 22.5 - 3 6.0 seconds. The reference range was not used to int erpret this result as normal/abnormal . Lab Interpretation (test Abnormal code = 13492-9) [id number]:56[facility]00 Test Item Value Reference Range Interpretation Comments PARTIAL THROMBOPLASTIN TIME 68.7 seconds 22.5-36.0 H (BEAKER) (test code = 760) [id number] 23:03:00 Test Item Value Reference Range Interpretation Comments PARTIAL THROMBOPLASTIN TIME 101.0 seconds 22.5-36.0 H (BEAKER) (test code = 760) CT, CTA, [id number] 21:13:00Unlisted Reason for Exam - Click Yes and Enter Reason Below->Yesaortic thrombusUnlisted Reason for Exam->aortic thrombus [facility] : 1950 Sex: MFINAL REPORT CT, CTA, CHEST, CT, CTA AAA, W/ DOUG.EXT.RUNOFF HISTOR Y:Unlisted Reason for Examaortic thrombus, acute limb ischemia COMPARISON: CTA abdomen and pelvis 10/12/2020, CT chest 07/29/2020 TECHNIQUE: CTA chest, abdomen, pelvis, with bilateral lower extremity runoff, including precontrast and arterial phase. Dose modulation, iterative reconstruction, and/or weight-based adjustment of the mA/kV was utilized to reduce the radiation dose to as low as reasonably achievable. FINDINGS: Thoracic aorta: Tiny focal ulceration or tiny saccular aneurysm measuring 7 mm arising off the ascending thoracic aorta (arterial phase image 82). No dissection. Extensive calcifiedand noncalcified atherosclerotic plaque. The aortic measurements are as follows: Sinuses of Valsalva: 3.0 cm Sinotubular Junction: 2.6cm Mid-Ascending Segment: 3.5cm Proximal Arch: 3.2cm Distal Arch: 2.6cm Mid-Descending Segment: 3.1cm Diaphragmatic Hiatus: 2.6cm Arch Vessels: The right innominate, bilateral common carotid, and vertebral arteries are widely patent without stenosis or occlusion. Moderate focal narrowing of the right mid subclavian artery, left mid subclavian artery, and proximal left brachial artery. Pulmonary Vessels: The main, right and left pulmonary arteries are widely patent without evidence of stenosis or occlusion. There is conventional pulmonary venous anatomy draining into the left atrium. No evidence of pulmonary venous filling defect or thrombus. Coronary artery calcifications. Cardiomegaly. For detailed evaluation of the heart or coronary arteries, a dedicated cardiac gated study is recommended.The patient is status post coronary artery bypass. Abdominal Aorta: Severe atherosclerotic plaque throughout the abdominal aorta, which is moderately narrowed throughout, without dissection or aneurysm. Celiac axis: Variant anatomy, common hepatic artery arises directly from the aorta, otherwise unremarkable and patent SMA: Patent, without irregularity or stenosis. RAIN: P atent, without irregularity or stenosis. Right Renal artery: Single, patent, without irregularity orstenosis. Left Renal artery: Single, patent, without irregularity or stenosis. Right Common Iliac: Mild to moderate narrowing at its origin Right Internal Iliac: Severely narrowed or occluded along itsproximal to midportion, re-opacifies distally Right External Iliac: Stented, which is patent Left Common Iliac: Occluded Left Internal Iliac: Re-pacifies via collateral vessels, multifocal narrowing Left External Iliac: Re-pacifies via collateral vessels, multifocal mild narrowing and diminutive Opacified venous structures are unremarkable RIGHT LOWER EXTREMITY RUN-OFF: Right MASTER WELDER: Patent Right SFA: Pa tent Right Profunda Femoris: Mild narrowing at its origin, otherwise patent Right Popliteal: Patent Right Anterior Tibial: Patent upper portion, tapers through the mid calf Right Tibioperoneal Trunk: Patent, without irregularity or stenosis. Right Peroneal: Patent upper portion, tapers through the midcalf. Right Posterior Tibial: Patent, although poorly opacified distally Right Dorsalis Pedis: Nonopacified Right Plantar Arch: Nonopacified LEFT LOWER EXTREMITY RUN-OFF: Left MASTER WELDER: Patent Left SFA: Diminutive, thrombosed distally Left Profunda Femoris: Patent, without irregularity or stenosis. Left popliteal: Thrombosed NONVASCULAR FINDINGS: CHEST:Lungs: The lungs are severely abnormal. There is dense opacification with air bronchograms in the posterior segment of the right upper lobe. Severe emphysema. Calcified pulmonary nodules related to old granulomatous disease. Additional scattered nonspecific pulmonary nodularity, much of which is likely postinfectious/postinflammatory, seen on 07/29/2020. Bonchiectasis.Lymph nodes and Mediastinum: Mediastinal surgical changes from CABG. Subcentimeter short axis mediastinal lymph nodes, nonspecific. Some calcified mediastinal nodes are related to old granulomatous diseasePleura: Partially loculated right sided small pleural effusion. Left- sided loculated pneumothorax with pleural thickening. Small layering left pleural effusion in additionOther: Cachexia. ABDOMEN/PELVIS: Liver: UnremarkableGallbladder and bile ducts: Gallstones. No definite gallbladder wall thickening and no biliary ductal dilationSpleen, pancreas, adrenals: Splenic calcifications related to old granulomatous disease. Adrenal glands and pancreas are unremarkableKidneys and ureters:Bilateral renal cysts. No hydronephrosisBowel: Colonic diverticulosis without evidence for acute dive rticulitis. The appendix is not visualized. There is no evidence for bowel obstructionBladder and reproductive organs: Prostatic calcificationsLymph nodes: No lymphadenopathyPeritoneum: Small volume ascites, nonspecificAbdominal wall: Mild anasarca and cachexia. Small bilateral fat-containing inguinalhernias, with small amount ascites fluid on the right MUSCULOSKELETAL:Patient is status post left below-knee amputation. Large Schmorl's node versus age-indeterminate mild superior endplate compressiondeformity at T12, unchanged from 10/12/2020. Osteopenia. Ununited median sternotomy. IMPRESSION: 1. The distal runoff vessels on the right are poorly visualized related to contrast bolus timing, upper po rtions are patent. Consider further evaluation with ultrasound if there is persistent concern for acute ischemia. 2. Occluded left-sided common iliac artery, distal SFA and popliteal artery. Patent right-sided external iliac artery stent. 3 . A tiny 7 mm focal ulcerated plaque or tiny saccular aneurysm arising from the ascending thoracic aorta; may be related to prior CABG. The thoracic aorta is otherwise relatively unremarkable. 4. Abdominal aorta is moderately narrowed throughout its course related to large amount of atherosclerotic plaque. Additional vascular findings as above. 5. Opacity in the posterior segment of the right upper lobe concerning for pneumonia. 6. Findings in the lungs are otherwise unchanged from 07/29/2020, including loculated left pneumothorax with pleural thickening, small loculated right pleural effusions, and a trace layering left pleural effusion. 7. Severe emphysema. Nodular/tree-in-bud opacities, no convincing change from 07/30/2020, recommend 6 month follow-upCT chest. 8. Small volume ascites. Signed: Pat Purcell Verified Date/Time: 10/13/2020 21:13:07 Reading Location: [address] Transitional Reading Room CT, CTA AAA, W/ DOUG.EXT.[id number] 21:13:00 [facility] : 1950 Sex: MFINAL REPORT CT, CTA, CHEST, CT, CTA AAA, W/ DOUG.EXT.RUNOFF HISTOR Y:Unlisted Reason for Examaortic thrombus, acute limb ischemia COMPARISON: CTA abdomen and pelvis 10/12/2020, CT chest 07/29/2020 TECHNIQUE: CTA chest, abdomen, pelvis, with bilateral lower extremity runoff, including precontrast and arterial phase. Dose modulation, iterative reconstruction, and/or weight-based adjustment of the mA/kV was utilized to reduce the radiation dose to as low as reasonably achievable. FINDINGS: Thoracic aorta: Tiny focal ulceration or tiny saccular aneurysm measuring 7 mm arising off the ascending thoracic aorta (arterial phase image 82). No dissection. Extensive calcifiedand noncalcified atherosclerotic plaque. The aortic measurements are as follows: Sinuses of Valsalva: 3.0 cm Sinotubular Junction: 2.6cm Mid-Ascending Segment: 3.5cm Proximal Arch: 3.2cm Distal Arch: 2.6cm Mid-Descending Segment: 3.1cm Diaphragmatic Hiatus: 2.6cm Arch Vessels: The right innominate, bilateral common carotid, and vertebral arteries are widely patent without stenosis or occlusion. Moderate focal narrowing of the right mid subclavian artery, left mid subclavian artery, and proximal left brachial artery. Pulmonary Vessels: The main, right and left pulmonary arteries are widely patent without evidence of stenosis or occlusion. There is conventional pulmonary venous anatomy draining into the left atrium. No evidence of pulmonary venous filling defect or thrombus. Coronary artery calcifications. Cardiomegaly. For detailed evaluation of the heart or coronary arteries, a dedicated cardiac gated study is recommended.The patient is status post coronary artery bypass. Abdominal Aorta: Severe atherosclerotic plaque throughout the abdominal aorta, which is moderately narrowed throughout, without dissection or aneurysm. Celiac axis: Variant anatomy, common hepatic artery arises directly from the aorta, otherwise unremarkable and patent SMA: Patent, without irregularity or stenosis. RAIN: P atent, without irregularity or stenosis. Right Renal artery: Single, patent, without irregularity orstenosis. Left Renal artery: Single, patent, without irregularity or stenosis. Right Common Iliac: Mild to moderate narrowing at its origin Right Internal Iliac: Severely narrowed or occluded along itsproximal to midportion, re-opacifies distally Right External Iliac: Stented, which is patent Left Common Iliac: Occluded Left Internal Iliac: Re-pacifies via collateral vessels, multifocal narrowing Left External Iliac: Re-pacifies via collateral vessels, multifocal mild narrowing and diminutive Opacified venous structures are unremarkable RIGHT LOWER EXTREMITY RUN-OFF: Right MASTER WELDER: Patent Right SFA: Pa tent Right Profunda Femoris: Mild narrowing at its origin, otherwise patent Right Popliteal: Patent Right Anterior Tibial: Patent upper portion, tapers through the mid calf Right Tibioperoneal Trunk: Patent, without irregularity or stenosis. Right Peroneal: Patent upper portion, tapers through the midcalf. Right Posterior Tibial: Patent, although poorly opacified distally Right Dorsalis Pedis: Nonopacified Right Plantar Arch: Nonopacified LEFT LOWER EXTREMITY RUN-OFF: Left MASTER WELDER: Patent Left SFA: Diminutive, thrombosed distally Left Profunda Femoris: Patent, without irregularity or stenosis. Left popliteal: Thrombosed NONVASCULAR FINDINGS: CHEST:Lungs: The lungs are severely abnormal. There is dense opacification with air bronchograms in the posterior segment of the right upper lobe. Severe emphysema. Calcified pulmonary nodules related to old granulomatous disease. Additional scattered nonspecific pulmonary nodularity, much of which is likely postinfectious/postinflammatory, seen on 07/29/2020. Bonchiectasis.Lymph nodes and Mediastinum: Mediastinal surgical changes from CABG. Subcentimeter short axis mediastinal lymph nodes, nonspecific. Some calcified mediastinal nodes are related to old granulomatous diseasePleura: Partially loculated right sided small pleural effusion. Left- sided loculated pneumothorax with pleural thickening. Small layering left pleural effusion in additionOther: Cachexia. ABDOMEN/PELVIS: Liver: UnremarkableGallbladder and bile ducts: Gallstones. No definite gallbladder wall thickening and no biliary ductal dilationSpleen, pancreas, adrenals: Splenic calcifications related to old granulomatous disease. Adrenal glands and pancreas are unremarkableKidneys and ureters:Bilateral renal cysts. No hydronephrosisBowel: Colonic diverticulosis without evidence for acute dive rticulitis. The appendix is not visualized. There is no evidence for bowel obstructionBladder and reproductive organs: Prostatic calcificationsLymph nodes: No lymphadenopathyPeritoneum: Small volume ascites, nonspecificAbdominal wall: Mild anasarca and cachexia. Small bilateral fat-containing inguinalhernias, with small amount ascites fluid on the right MUSCULOSKELETAL:Patient is status post left below-knee amputation. Large Schmorl's node versus age-indeterminate mild superior endplate compressiondeformity at T12, unchanged from 10/12/2020. Osteopenia. Ununited median sternotomy. IMPRESSION: 1. The distal runoff vessels on the right are poorly visualized related to contrast bolus timing, upper po rtions are patent. Consider further evaluation with ultrasound if there is persistent concern for acute ischemia. 2. Occluded left-sided common iliac artery, distal SFA and popliteal artery. Patent right-sided external iliac artery stent. 3 . A tiny 7 mm focal ulcerated plaque or tiny saccular aneurysm arising from the ascending thoracic aorta; may be related to prior CABG. The thoracic aorta is otherwise relatively unremarkable. 4. Abdominal aorta is moderately narrowed throughout its course related to large amount of atherosclerotic plaque. Additional vascular findings as above. 5. Opacity in the posterior segment of the right upper lobe concerning for pneumonia. 6. Findings in the lungs are otherwise unchanged from 07/29/2020, including loculated left pneumothorax with pleural thickening, small loculated right pleural effusions, and a trace layering left pleural effusion. 7. Severe emphysema. Nodular/tree-in-bud opacities, no convincing change from 07/30/2020, recommend 6 month follow-upCT chest. 8. Small volume ascites. Signed: Pat Purcelleport Verified Date/Time: 10/13/2020 21:13:07 Reading Location: [address] Transitional Reading Room CTA AAA and [id number] 21:13:00Interface, External Ris In - 10/14/2020 8:[address], CTA, CHEST, CT, CTA AAA, W/ DOUG.EXT.RUNOFF HISTORY:Unlisted Reason for Examaortic thrombus, acute limb ischemia COMPARISON: CTA abdomen and pelvis 10/12/2020, CT chest 07/29/2020 TECHNIQUE: CTA chest, abdomen, pelvis, with bilateral lower extremity runoff, including precontrast and arterial phase. Dose modulation, iterative reconstruction, and/or weight-based adjustment of the mA/kV was utilized to reduce theradiation dose to as low as reasonably achievable. FINDINGS: Thoracic aorta: Tiny focal ulceration or tiny saccular aneurysm measuring 7 mm arising off the ascending thoracic aorta (arterial phase image 82). No dissection. Extensive calcified and noncalcified atherosclerotic plaque. The aortic measurem ents are as follows: Sinuses of Valsalva: 3.0 cm Sinotubular Junction: 2.6cm Mid-Ascending Segment: 3.5cm Proximal Arch: 3.2cm Distal Arch: 2.6cm Mid- Descending Segment: 3.1cm Diaphragmatic Hiatus: 2.6cm Arch Vessels: The right innominate, bilateral common carotid, and vertebral arteries are widely patent without stenosis or occlusion. Moderate focal narrowing of the right mid subclavian artery, left mid subclavian artery, and proximal left brachial artery. Pulmonary Vessels: The main, right and left pulmonary arteries are widely patent without evidence of stenosis or occlusion. There is conventional pulmonary venous anatomy draining into the left atrium. No evidence of pulmonary venous filling defect or thrombus. Coronary artery calcifications. Cardiomegaly. For detailed evaluation of the heartor coronary arteries, a dedicated cardiac gated study is recommended.The patient is status post coronary artery bypass. Abdominal Aorta: Severe atherosclerotic plaque throughout the abdominal aorta, which is moderately narrowed throughout, without dissection or aneurysm. Celiac axis: Variant anatomy, common hepatic artery arises directly from the aorta, otherwise unremarkable and patent SMA: Patent,without irregularity or stenosis. RAIN: Patent, without irregularity or stenosis. Right Renal artery: Single, patent, without irregularity or stenosis. Left Renal artery: Single, patent, without irregularity or stenosis. Right Common Iliac: Mild to moderate narrowing at its origin Right Internal Iliac: Severely narrowed or occluded along its proximal to midportion, re-opacifies distally Right External Iliac: Stented, which is patent Left Common Iliac: Occluded Left Internal Iliac: Re-pacifies via collateral vessels, multifocal narrowing Left External Iliac: Re-pacifies via collateral vessels, multifocal mild narrowing and diminutive Opacified venous structures are unremarkable RIGHT LOWER EXTREMITY RUN-OFF: Right MASTER WELDER: Patent Right SFA: Patent Right Profunda Femoris: Mild narrowing at its origin, o therwise patent Right Popliteal: Patent Right Anterior Tibial: Patent upper portion, tapers through the mid calf Right Tibioperoneal Trunk: Patent, without irregularity or stenosis. Right Peroneal: Patent upper portion, tapers through the mid calf. Right Posterior Tibial: Patent, although poorly opacified distally Right Dorsalis Pedis: Nonopacified Right Plantar Arch: Nonopacified LEFT LOWER EXTREMITY RUN-OFF: Left MASTER WELDER: Patent Left SFA: Diminutive, thrombosed distally Left Profunda Femoris: Patent,without irregularity or stenosis. Left popliteal: Thrombosed NONVASCULAR FINDINGS: CHEST:Lungs: The lungs are severely abnormal. There is dense opacification with air bronchograms in the posterior segment of the right upper lobe. Severe emphysema. Calcified pulmonary nodules related to old granulomatous disease. Additional scattered nonspecific pulmonary nodularity, much of which is likely postinfectious/postinflammatory, seen on 07/29/2020. Bonchiectasis.Lymph nodes and Mediastinum: Mediastinal surgical changes from CABG. Subcentimeter short axis mediastinal lymph nodes, nonspecific. Some calcified mediastinal nodes are related to old granulomatous diseasePleura: Partially loculated right sided small pleural effusion. Left- sided loculated pneumothorax with pleural thickening. Small layering leftpleural effusion in additionOther: Cachexia. ABDOMEN/PELVIS: Liver: UnremarkableGallbladder and bileducts: Gallstones. No definite gallbladder wall thickening and no biliary ductal dilationSpleen, pancreas, adrenals: Splenic calcifications related to old granulomatous disease. Adrenal glands and pancreas are unremarkableKidneys and ureters: Bilateral renal cysts. No hydronephrosisBowel: Colonic diverticulosis without evidence for acute diverticulitis. The appendix is not visualized. There is no evidence for bowel obstructionBladder and reproductive organs: Prostatic calcificationsLymph nodes: No lymphadenopathyPeritoneum: Small volume ascites, nonspecificAbdominal wall: Mild anasarca and cachexia. Small bilateral fat-containing inguinal hernias, with small amount ascites fluid on the right MUSCULOSKELETAL:Patient is status post left below-knee amputation. Large Schmorl's node versus age-indeterminate mild superior endplate compression deformity at T12, unchanged from 10/12/2020. Osteopenia. Ununited median sternotomy. IMPRESSION: 1. The distal runoff vessels on the right are poorly visualized related to contrast bolus timing, upper portions are patent. Consider further evaluation with ultrasound if there is persistent concern for acute ischemia. 2. Occluded left-sided common iliac artery, distal SFA and popliteal artery. Patent right-sided external iliac artery stent. 3 . A tiny 7 mm focal ulcerated plaque or tiny saccular aneurysm arising from the ascending thoracic aorta; may be related to prior CABG. The thoracic aorta is otherwise relatively unremarkable. 4. Abdominal aorta is moderately narrowed throughout its course related to large amount of atherosclerotic plaque. Additional vascular findings as above. 5. Opacity in the posterior segment of the right upper lobe concerning for pneumonia. 6. Findings in the lungs are otherwise unchanged from 07/29/2020, including loculated left pneumothorax with pleural thickening, small loculated right pleural effusions, and a trace layering left pleural effusion. 7. Severe emphysema. Nodular/tree-in-bud opacities, no convincing change from 07/30/2020, recommend 6 month follow-up CT chest. 8. Small volume ascites. Signed: Pat Purcell Verified Date/Time: 10/13/2020 21:13:07 Reading Location: [address] Transitional Reading [facility] [id number] 21:13:00 Interface, External Ris In - 10/14/2020 8:[address], CTA, CHEST, CT, CTA AAA, W/ DOUG.EXT.RUNOFF HISTORY:Unlisted Reason for Examaortic thrombus, acute limb ischemia COMPARISON: CTA abdomen and pelvis 10/12/2020, CT chest 07/29/2020 TECHNIQUE: CTA chest, abdomen, pelvis, with bilateral lower extremity runoff, including precontrast and arterial phase. Dose modulation, iterative reconstruction, and/or weight-based adjustment of the mA/kV was utilized to reduce theradiation dose to as low as reasonably achievable. FINDINGS: Thoracic aorta: Tiny focal ulceration or tiny saccular aneurysm measuring 7 mm arising off the ascending thoracic aorta (arterial phase image 82). No dissection. Extensive calcified and noncalcified atherosclerotic plaque. The aortic measurements are as follows: Sinuses of Valsalva: 3.0 cm Sinotubular Junction: 2.6cm Mid-Ascending Segment: 3.5cm Proximal Arch: 3.2cm Distal Arch: 2.6cm Mid-Descending Segment: 3.1cm Diaphragmatic Hiatus: 2.6cm Arch Vessels: The right innominate, bilateral common carotid, and vertebral arteries are widely patent without stenosis or occlusion. Moderate focal narrowing of the right mid subclavian artery, left mid subclavian artery, and proximal left brachial artery. Pulmonary Vessels: The main, right and left pulmonary arteries are widely patent without evidence of stenosis or occlusion. There is conventional pulmonary venous anatomy draining into the left atrium. No evidence of pulmonary venous filling defect or thrombus. Coronary artery calcifications. Cardiomegaly. For detailed evaluation of the heartor coronary arteries, a dedicated cardiac gated study is recommended.The patient is status post coronary artery bypass. Abdominal Aorta: Severe atherosclerotic plaque throughout the abdominal aorta, which is moderately narrowed throughout, without dissection or aneurysm. Celiac axis: Variant anatomy, common hepatic artery arises directly from the aorta, otherwise unremarkable and patent SMA: Patent, without irregularity or stenosis. RAIN: Patent, without irregularity or stenosis. Right Renal artery: Single, patent, without irregularity or stenosis. Left Renal artery: Single, patent, without irregularity or stenosis. Right Common Iliac: Mild to moderate narrowing at its origin Right Internal Iliac: Severely narrowed or occluded along its proximal to midportion, re-opacifies distally Right External Iliac: Stented, which is patent Left Common Iliac: Occluded Left Internal Iliac: Re-pacifies via collateral vessels, multifocal narrowing Left External Iliac: Re-pacifies via collateral vessels, multifocal mild narrowing and diminutive Opacified venous structures are unremarkable RIGHT LOWER EXTREMITY RUN-OFF: Right MASTER WELDER: Patent Right SFA: Patent Right Profunda Femoris: Mild narrowing at its origin, otherwise patent Right Popliteal: Patent Right Anterior Tibial: Patent upper portion, tapers through the mid calf Right Tibioperoneal Trunk: Patent, without irregularity or stenosis. Right Peroneal: Patent upper portion, tapers through the mid calf. Right Posterior Tibial: Patent, although poorly opacified distally Right Dorsalis Pedis: Nonopacified Right Plantar Arch: Nonopacified LEFT LOWER EXTREMITY RUN-OFF: Left MASTER WELDER: Patent Left SFA: Diminutive, thrombosed distally Left Profunda Femoris: Patent,without irregularity or stenosis. Left popliteal: Thrombosed NONVASCULAR FINDINGS: CHEST:Lungs: The lungs are severely abnormal. There is dense opacification with air bronchograms in the posterior segment of the right upper lobe. Severe emphysema. Calcified pulmonary nodules related to old granulomatous disease. Additional scattered nonspecific pulmonary nodularity, much of which is likely postinfectious/postinflammatory, seen on 07/29/2020. Bonchiectasis.Lymph nodes and Mediastinum: Mediastinal surgical changes from CABG. Subcentimeter short axis mediastinal lymph nodes, nonspecific. Some calcified mediastinal nodes are related to old granulomatous diseasePleura: Partially loculated right sided sm all pleural effusion. Left-sided loculated pneumothorax with pleural thickening. Small layering leftpleural effusion in additionOther: Cachexia. ABDOMEN/PELVIS: Liver: UnremarkableGallbladder and bileducts: Gallstones. No definite gallbladder wall thickening and no biliary ductal dilationSpleen, pancreas, adrenals: Splenic calcifications related to old granulomatous disease. Adrenal glands and pancreas are unremarkableKidneys and ureters: Bilateral renal cysts. No hydronephrosisBowel: Colonic diverticulosis without evidence for acute diverticulitis. The appendix is not visualized. There is no evidence for bowel obstructionBladder and reproductive organs: Prostatic calcificationsLymph nodes: No lymphadenopathyPeritoneum: Small volume ascites, nonspecificAbdominal wall: Mild anasarca and cachexia. Small bilateral fat-containing inguinal hernias, with small amount ascites fluid on the right MUSCULOSKELETAL:Patient is status post left below-knee amputation. Large Schmorl's node versus age-indeterminate mild superior endplate compression deformity at T12, unchanged from 10/12/2020. Osteopenia. Ununited median sternotomy. IMPRESSION: 1. The distal runoff vessels on the right are poorly visualized related to contrast bolus timing, upper portions are patent. Consider further evaluation with ultrasound if there is persistent concern for acute ischemia. 2. Occluded left-sided common iliac artery, distal SFA and popliteal artery. Patent right-sided external iliac artery stent. 3 . A tiny 7 mm focal ulcerated plaque or tiny saccular aneurysm arising from the ascending thoracic aorta; may be related to prior CABG. The thoracic aorta is otherwise relatively unremarkable. 4. Abdominal aorta is moderately narrowed throughout its course related to large amount of atherosclerotic plaque. Additional vascular findings as above. 5. Opacity in the posterior segment of the right upper lobe concerning for pneumonia. 6. Findings in the lungs are otherwise unchanged from 07/29/2020, including loculated left pneumothorax with pleural thickening, small loculated right pleural effusions, and a trace layering left pleural effusion. 7. Severe emphysema. Nodular/tree-in-bud opacities, no convincing change from 07/30/2020, recommend 6 month follow-up CT chest. 8. Small volume ascites. Signed: Pat Purcell Verified Date/Time: 10/13/2020 21:13:07 Reading Location: [address] Transitional Reading [facility] W/Doppler(CW/PW/Color) 2020-10-13 17:34:18Ejection FractionSLEH ECHO HEARTLAB MKCKESSON CPACSInterface, External Ris In - 10/13/2020 5:34 PM CSTTransthoracic Echocardiography Report (TTE) Demographics Patient Name IMELDA VALENCIA Date ofStudy 10/13/2020 GENE Gender MaleVisit Number [id number] Race Unknown Room Number 1122 Number Date of 1950 [facility]erring [facility] Age 70 year(s) 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 The left ventricle is chamber size (by vol index) is normal. No evidence of LV hypertrophy. All of the LV segments are severely hypokinetic. LVEF by Solorio's method of disk assessment is severely reduced (<20%). LA size is severely enlarged (>48 ml/m2) . 2. The right ventricular chamber size and systolic function are within normal limits. RAsize is normal. Estimated peak systolic PA pressure is 45-50 mmHg (mild pulmonary hypertension) . 3. Mild mitral regurgitation. Mild tricuspid regurgitation. Aortic valve sclerosis. Previous Study Compared to the previous study there was no significant change. Signature Findings Technical Quality: Technically adequate exam. Left Ventricle The left ventricle is chambersize (by vol index) is normal (male - LVED vol - 34-74ml/m2). No evidence of LV hypertrophy. All of the LV segments are severely hypokinetic . Global LV systolic function severely reduced . LVEF by Solorio's method of disk assessment is severely reduced (<20%) .Degree of diastolic dysfunction (LAP assessment) is inconclusive due to arrhythmia . Left Atrium LA size is severely enlarged (>48 ml/m2) . Right VentricleThe right ventricular chamber size and systolic function are within normal simmons its. Right Atrium RA size is normal. Atrial Septum Normal interatrial septum byavailable views. Aortic Valve [id number] AoV cusp thickening. A trace of aortic regurgitation. Mitral Valve Mild MV leaflet thickening. Mild mitral regurgitation. Tricuspid Valve TV structure is normal. Mild tricuspid regurgitation. Estimated peak systolic PA pressure is 45-50 mmHg (mild pulmonary hypertension) . Pulmonic Valve Normal PV structure and function by limited views and Doppler. Aorta Aortic root size (SInus of Valsalva diameter) is normal . Pericardium No pericardial effusion is visualized. IVC/SVC/PA/PV/Pleural The estimated RA pressure by IVC dynamics 5-10mmHg . Chambers/Structures Left Atrium LA Volume: 81.95 ml LA Area: 22.72 cm^2 LA Vol. Index: 55 ml/m^2 Left Ventricle LVIDd: 5.17 cm LVIDs: 4.29 cm LV Septum Diastolic: 0.79 cm LV PW Diastolic: 0.87 cm LV FS: 17 % LVEDV Solorio's:92.5 ml LVESV Solorio's:74.65 ml LVEDVI: 62 ml/m^2 LVEF Solorio's: 19.3 % LVESVI: 50 ml/m^2 LVOT Diameter: 1.98 cm Aorta Ao Root S of [place].: 3.08 cm Doppler/Quantitative Measurements Aortic Valve Peak Velocity: 1.55 m/s Mean Velocity: 1.08 m/s Peak Gradient: 9.65 mmHg Mean Gradient: 5.17 mmHg AV Area (continuity): 1.66 cm^2 AV VTI: 32.43 cm AV DVI: 0.54 LVOT Peak Velocity: 0.91 m/s Peak Gradient: 3.29 mmHg Mean Velocity: 0.52 m/s Mean Gradient: 1.37 mmHg LVOT Diameter: 1.98 cm LVOT VTI:17.44 cm LVOT Area: 3.08 cm^2 LVOT SV:53.67 ml LVOT CO: 3.65 l/min LVOT CI: 2.45 l/min/m^2 Tricuspid Valve TR Velocity: 3.11 m/s TR Gradient: 38.58 mmHgCoalinga State [id number] 16:40:00 Test Item Value Reference Range Interpretation Comments PARTIAL THROMBOPLASTIN TIME 82.3 seconds 22.5-36.0 H (BEAKER) (test code = 760) LACTIC ACID, [id number] 15:16:00 Test Item Value Reference Range Interpretation Comments LACTATE BLOOD VENOUS (2) (BEAKER) 2.28 mmol/L 0.50-2.20 H (test code = 2872) [employer] Internship ID - DBHEMOGLOBIN AND [id number] 14:53:00 Test Item Value Reference Range Interpretation Comments HEMOGLOBIN (BEAKER) (test code = 10.9 GM/DL 13.7-17.5 L 410) HEMATOCRIT (BEAKER) (test code = 34.7 % 40.1-51.0 L 411) [employer] Affairs Internship ID - [id number] ID - [id number] 09:04:00 Test Item Value Reference Range Interpretation Comments PARTIAL THROMBOPLASTIN TIME 64.5 seconds 22.5-36.0 H (BEAKER) (test code = 760) [id number] 07:21:00 Test Item Value Reference Range Interpretation Comments Phosphorus (test code = 2.7 mg/dL 2.3-4.7 2777-1) JERONIMO (test code = JERONIMO) [employer] Internship ID - PIAYA L Lab Interpretation (test Normal code = 86521-0) [facility] HospitalHEPATIC FUNCTION [id number] 07:21:00 Test Item Value Reference Range Interpretation Comments TOTAL PROTEIN (BEAKER) (test code = 4.8 gm/dL 6.0-8.3 L 770) ALBUMIN (BEAKER) (test code = 1145) 2.7 g/dL 3.5-5.0 L BILIRUBIN TOTAL (BEAKER) (test code 0.3 mg/dL 0.2-1.2 = 377) BILIRUBIN DIRECT (BEAKER) (test 0.2 mg/dL 0.1-0.5 code = 706) ALKALINE PHOSPHATASE (BEAKER) (test 59 U/L 40-150 code = 346) AST (SGOT) (BEAKER) (test code = 13 U/L 5-34 353) ALT (SGPT) (BEAKER) (test code = 8 U/L 6-55 347) [employer] Affairs Internship ID Juwan BAIRES [id number] 07:21:00 Test Item Value Reference Range Interpretation Comments MAGNESIUM (BEAKER) (test code = 1.6 mg/dL 1.6-2.6 627) [employer] Internship ID - DEQUAN [id number] 07:21:00 Test Item Value Reference Range Interpretation Comments PHOSPHORUS (BEAKER) (test code = 2.7 mg/dL 2.3-4.7 604) [employer] Affairs Internship ID - DEQUAN LCBC W/PLT COUNT & AUTO [id number] 07:17:00 Test Item Value Reference Range Interpretation Comments WHITE BLOOD CELL COUNT (BEAKER) 5.8 K/ L 3.5-10.5 (test code = 775) RED BLOOD CELL COUNT (BEAKER) 3.05 M/ L 4.63-6.08 L (test code = 761) HEMOGLOBIN (BEAKER) (test code = 9.8 GM/DL 13.7-17.5 L 410) HEMATOCRIT (BEAKER) (test code = 30.7 % 40.1-51.0 L 411) MEAN CORPUSCULAR VOLUME (BEAKER) 100.7 fL 79.0-92.2 H (test code = 753) MEAN CORPUSCULAR HEMOGLOBIN 32.1 pg 25.7-32.2 (BEAKER) (test code = 751) MEAN CORPUSCULAR HEMOGLOBIN CONC 31.9 GM/DL 32.3-36.5 L (BEAKER) (test code = 752) RED CELL DISTRIBUTION WIDTH 14.0 % 11.6-14.4 (BEAKER) (test code = 412) PLATELET COUNT (BEAKER) (test code 96 K/CU MM 150-450 L = 756) MEAN PLATELET VOLUME (BEAKER) 11.1 fL 9.4-12.4 (test code = 754) NUCLEATED RED BLOOD CELLS (BEAKER) 0 /100 WBC 0-0 (test code = 413) NEUTROPHILS RELATIVE PERCENT 90 % (BEAKER) (test code = 429) LYMPHOCYTES RELATIVE PERCENT 7 % (BEAKER) (test code = 430) MONOCYTES RELATIVE PERCENT 3 % (BEAKER) (test code = 431) EOSINOPHILS RELATIVE PERCENT 0 % (BEAKER) (test code = 432) BASOPHILS RELATIVE PERCENT 0 % (BEAKER) (test code = 437) NEUTROPHILS ABSOLUTE COUNT 5.19 K/ L 1.78-5.38 (BEAKER) (test code = 670) LYMPHOCYTES ABSOLUTE COUNT 0.40 K/ L 1.32-3.57 L (BEAKER) (test code = 414) MONOCYTES ABSOLUTE COUNT (BEAKER) 0.19 K/ L 0.30-0.82 L (test code = 415) EOSINOPHILS ABSOLUTE COUNT 0.00 K/ L 0.04-0.54 L (BEAKER) (test code = 416) BASOPHILS ABSOLUTE COUNT (BEAKER) 0.00 K/ L 0.01-0.08 L (test code = 417) IMMATURE GRANULOCYTES-RELATIVE 0 % 0-1 PERCENT (BEAKER) (test code = 2801) [id number] 06:56:00 Test Item Value Reference Range Interpretation Comments PARTIAL THROMBOPLASTIN TIME 131.5 seconds 22.5-36.0 H (BEAKER) (test code = 760) LACTIC ACID, [id number] 06:55:00 Test Item Value Reference Range Interpretation Comments LACTATE BLOOD VENOUS (2) (BEAKER) 2.23 mmol/L 0.50-2.20 H (test code = 2872) [employer] Affairs Internship ID - PIAYA LPROTHROMBIN [id number] 06:52:00 Test Item Value Reference Range Interpretation Comments PROTIME (BEAKER) 19.6 seconds 11.9-14.2 H (test code = 759) INR (BEAKER) (test 1.71 See_Comment [Automat ed message] code = 370) The system [employer] generated this result transmitted ref erence range: <=5.90. The reference range was not used to int erpret this result as normal/abnormal . Effective 01/14/2019: PT Reference Range ChangeNew: 11.9-14.2 Previous: 11.7- 14.7RECOMMENDED COUMADIN/WARFARIN INR THERAPY RANGESSTANDARD DOSE: 2.0-3.0 Includes: PROPHYLAXIS for venous thrombosis, systemic embolization; TREATMENT for venous thrombosis and/or pulmonary embolus.HIGH RISK: Target INR is2.5-3.5 for patients wiht mechanical heart valves.[id number] 02:10:00 Test Item Value Reference Range Interpretation Comments Procalcitonin (test <0.05 See_Comment [Automa tyra code = 31623-0) message] The system which generated this result transmit tyra reference range : <0.05 ng/mL. Th e reference range was not used to interpret this result as normal/abnormal . JERONIMO (test code = JERONIMO) SEPSIS RISK (ng/mL)Low: 0.05-0.50Inter mediate: 0.51-2.00High: >=2.01 Lab Interpretation Normal (test code = 13070-1) [facility]00 Test Item Value Reference Range Interpretation Comments PROCALCITONIN (BEAKER) (test code = < ng/mL <0.05 3036) SEPSIS RISK (ng/mL)Low: 0.05-0.50Intermediate: 0.51-2.00High: >=2.01B-TYPE NATRIURETIC FACTOR (BNP)2020-10-13 02:04:00 Test Item Value Reference Range Interpretation Comments B-TYPE NATRIURETIC PEPTIDE (BEAKER) 784 pg/mL 0-100 H (test code = 700) [employer] Internship ID - PIAYA LBASIC METABOLIC [id number] 01:56:00 Test Item Value Reference Range Interpretation Comments SODIUM (BEAKER) 139 meq/L 136-145 (test code = 381) POTASSIUM (BEAKER) 4.1 meq/L 3.5-5.1 (test code = 379) CHLORIDE (BEAKER) 105 meq/L 98-107 (test code = 382) CO2 (BEAKER) (test 23 meq/L 22-29 code = 355) BLOOD UREA NITROGEN 42 mg/dL 7-21 H (BEAKER) (test code = 354) CREATININE (BEAKER) 1.17 mg/dL 0.57-1.25 (test code = 358) GLUCOSE RANDOM 253 mg/dL 70-105 H (BEAKER) (test code = 652) CALCIUM (BEAKER) 8.6 mg/dL 8.4-10.2 (test code = 697) EGFR (BEAKER) (test 61 mL/min/1.73 ESTIMA TYRA GFR IS code = 1092) sq m NOT ACCURATE CREATININE CLEARANCE IN PREDICTING GLOMERULAR FILTRATION RATE . ESTIMATED GFR I S NOT APPLICABLE FOR DIALYSIS PATIEN TS. [employer] Affairs Internship ID - DEQUAN LLACTIC ACID, [id number] 01:53:00 Test Item Value Reference Range Interpretation Comments LACTATE BLOOD VENOUS (2) (BEAKER) 3.65 mmol/L 0.50-2.20 H (test code = 2872) [employer] Internship ID - DEQUAN LBlood gas, [id number] 01:42:00 Test Item Value Reference Range Interpretation Comments pH, Jerad (test code = 7.37 7.32-7.42 2746-6) pCO2, Jerad (test code = 44 See_Comment [Aut omated 755) message] The sy stem which generated this result transmitted reference range : 41 - 51 mm Hg. The reference range was not used to interpret this result as normal/abnormal . pO2, Jerad (test code = 59 See_Comment H [Auto mated 0565-2) message] The sy stem which generated this result transmitted reference range : 25 - 40 mm Hg. The reference range was not used to interpret this result as normal/abnormal . O2 Sat, Jerad (test code 89.7 % 40-70 H = 2711-0) HCO3, Jerad (test code = 25 mmol/L 21-29 05997-2) Base Excess, Jerad (test -0.5 mmol/L -2-3 code = 1927-3) Patient Temperature 37.0 (test code = 8310-5) FIO2 (test code = 1819) 21 Lab Interpretation Abnormal (test code = 09383-9) [facility], [id number] 01:42:00 Test Item Value Reference Range Interpretation Comments PH VENOUS (BEAKER) (test code = 7.37 7.32-7.42 701) PCO2 VENOUS (BEAKER) (test code = 44 mm Hg 41-51 755) PO2 VENOUS (BEAKER) (test code = 59 mm Hg 25-40 H 702) O2 SATURATION VENOUS (BEAKER) 89.7 % 40.0-70.0 H (test code = 703) HCO3 VENOUS (BEAKER) (test code = 25 mmol/L 21-29 705) BASE EXCESS VENOUS (BEAKER) (test -0.5 mmol/L -2.0-3.0 code = 704) PATIENT TEMPERATURE (BEAKER) 37.0 (test code = 1818) FIO2 (BEAKER) (test code = 1819) 21.0 LACTIC ACID, [id number] 00:11:00 Test Item Value Reference Range Interpretation Comments LACTATE BLOOD VENOUS (2) (BEAKER) 3.19 mmol/L 0.50-2.20 H (test code = 2872) [employer] Internship ID - DEQUAN [id number] 00:05:00 Test Item Value Reference Range Interpretation Comments PARTIAL THROMBOPLASTIN TIME 34.4 seconds 22.5-36.0 (BEAKER) (test code = 760) 6 hours after starting heparin infusion and as indicated per sliding scale PROTHROMBIN TIME/[id number] 00:04:00 Test Item Value Reference Range Interpretation Comments PROTIME (BEAKER) 18.4 seconds 11.9-14.2 H (test code = 759) INR (BEAKER) (test 1.59 See_Comment [Automat ed message] code = 370) The system [employer] generated this result transmitted ref erence range: <=5.90. The reference range was not used to int erpret this result as normal/abnormal . Effective 01/14/2019: PT Reference Range ChangeNew: 11.9-14.2 Previous: 11.7- 14.7RECOMMENDED COUMADIN/WARFARIN INR THERAPY RANGESSTANDARD DOSE: 2.0-3.0 Includes: PROPHYLAXIS for venous thrombosis, systemic embolization; TREATMENT for venous thrombosis and/or pulmonary embolus.HIGH RISK: Target INR is2.5-3.5 for patients wiht mechanical heart valves.6 hours after starting heparin infusion and as indicated per sliding scaleCBC (HEMOGRAM ONLY)2020-10-12 23:54:00 Test Item Value Reference Range Interpretation Comments WHITE BLOOD CELL COUNT (BEAKER) 7.1 K/ L 3.5-10.5 (test code = 775) RED BLOOD CELL COUNT (BEAKER) 3.78 M/ L 4.63-6.08 L (test code = 761) HEMOGLOBIN (BEAKER) (test code = 12.1 GM/DL 13.7-17.5 L 410) HEMATOCRIT (BEAKER) (test code = 38.4 % 40.1-51.0 L 411) MEAN CORPUSCULAR VOLUME (BEAKER) 101.6 fL 79.0-92.2 H (test code = 753) MEAN CORPUSCULAR HEMOGLOBIN 32.0 pg 25.7-32.2 (BEAKER) (test code = 751) MEAN CORPUSCULAR HEMOGLOBIN CONC 31.5 GM/DL 32.3-36.5 L (BEAKER) (test code = 752) RED CELL DISTRIBUTION WIDTH 14.0 % 11.6-14.4 (BEAKER) (test code = 412) PLATELET COUNT (BEAKER) (test 113 K/CU MM 150-450 L code = 756) MEAN PLATELET VOLUME (BEAKER) 10.4 fL 9.4-12.4 (test code = 754) NUCLEATED RED BLOOD CELLS 0 /100 WBC 0-0 (BEAKER) (test code = 413) [id number] 00:00:00Ordered by an unspecified provider.[facility]AGRAM -[id number] 11:08:36Ordered by an unspecified provider.[facility]ARD[facility]AC CATH REPORT - [id number] 13:55:24Ordered by an unspecified provider.[facility]BAS[facility]OLIC [id number] 05:43:00 Test Item Value Reference Range Interpretation [...] S NOT APPLICABLE FOR DIALYSIS PATIEN TS. Reg[employer] Affairs Internship ID - CHARLENE [id number] 05:28:00 Test Item Value Reference Range Interpretation Comments MAGNESIUM (BEAKER) (test code = 1.8 mg/dL 1.6-2.6 627) [employer] Affairs Internship ID - CHARLENE [id number] 05:28:00 Test Item Value Reference Range Interpretation Comments PHOSPHORUS (BEAKER) (test code = 3.1 mg/dL 2.3-4.7 604) [employer] Affairs Internship ID - CHARLENE MCalcium, [id number] 05:27:00 Test Item Value Reference Range Interpretation Comments Calcium, Ion (test code = 1994-3) 1.07 mmol/L 1.12-1.27 L pH, Blood (test code = 75456-4) 7.32 Lab Interpretation (test code = Abnormal 97019-2) [facility], [id number] 05:27:00 Test Item Value Reference Range Interpretation Comments CALCIUM IONIZED (BEAKER) (test 1.07 mmol/L 1.12-1.27 L code = 698) PH, BLOOD (BEAKER) (test code = 7.32 1810) CBC W/PLT COUNT & AUTO [id number] 05:10:00 Test Item Value Reference Range Interpretation [...] (BEAKER) (test code = 2801) BASIC METABOLIC [id number] 06:33:00 Test Item Value Reference Range Interpretation [...] S NOT APPLICABLE FOR DIALYSIS PATIEN TS. [employer] Affairs Internship ID - DEQUAN [id number] 06:27:00 Test Item Value Reference Range Interpretation Comments MAGNESIUM (BEAKER) (test code = 1.9 mg/dL 1.6-2.6 627) [employer] Internship ID - DEQUAN [id number] 06:27:00 Test Item Value Reference Range Interpretation Comments PHOSPHORUS (BEAKER) (test code = 1.9 mg/dL 2.3-4.7 L 604) [employer] Affairs Internship ID - DEQUAN LCALCIUM, [id number] 06:25:00 Test Item Value Reference Range Interpretation Comments CALCIUM IONIZED (BEAKER) (test 1.11 mmol/L 1.12-1.27 L code = 698) PH, BLOOD (BEAKER) (test code = 7.37 1810) CBC W/PLT COUNT & AUTO [id number] 06:02:00 Test Item Value Reference Range Interpretation [...] code = 2801) ELIA's Only(Ankle/Brachial Index)2020-08-06 09:42:35Ejection [facility] ECHO HEARTLAB MKCKESSON CPACSRight Impression1. 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 Indications for Study:Diminished pulses .Patient Status:Routine.Study Location:Vascular Lab.Technical Quality:Adequate visualization.Risk FactorsHistory of Disease+ +----+ --+!Diagnosis !Date!Comments !+ +----+ +!History/Risk ! !Right carotid endartectomy, AFIB, CAD, COPD, HTN, !!Factors: ! !HLD, Left BKA, stroke, current smoker !+-------- --------+----+ +ImpressionsRi [facility] [place] Impression1. Theposterior tibial and dorsalis pedis [...] in cm/s ; Diameters are measured in [facility] W/PLT COUNT & AUTO [id number] 06:00:00 Test Item Value Reference Range Interpretation [...] (BEAKER) (test code = 2801) BASIC METABOLIC [id number] 05:50:00 Test Item Value Reference Range Interpretation [...] S NOT APPLICABLE FOR DIALYSIS PATIEN TS. Regulatory Affairs Internship ID - VERONICA [id number] 05:48:00 Test Item Value Reference Range Interpretation Comments MAGNESIUM (BEAKER) (test code = 1.9 mg/dL 1.6-2.6 627) Reg[employer] Affairs Internship ID - VERONICA [id number] 05:48:00 Test Item Value Reference Range Interpretation Comments PHOSPHORUS (BEAKER) (test code = 1.7 mg/dL 2.3-4.7 L 604) Reg[employer] Affairs Internship ID - VERONICA WCALCIUM, [id number] 05:21:00 Test Item Value Reference Range Interpretation Comments CALCIUM IONIZED (BEAKER) (test 1.15 mmol/L 1.12-1.27 code = 698) PH, BLOOD (BEAKER) (test code = 7.38 5740) SARS-COV2/RT-PCR ([facility])2020-08-05 22:48:00 Test Item Value Reference Range Interpretation Comments SARS-COV2/RT-PCR (test Negative Not Detected, Negative, code = 9203566) See external report for linked test SARS-COV-2 PERFORMING LAB [facility] TEJA (test code = 3136348) Negative result for this test determines that [...] the Claire SARS-CoV-2 assay.Fact Sheet for Healthcare Providers:https://www.molecular.claire/cali/ XO_BUEG-GcO-0_ROK_Gppp_Jnnas_17-123749.pdfFact Sheet for Healthcare Patients:https://www.molecular.ab yen/cali/IE_NOBF-QwP-3_Uklcirl_Xjyf_Xxrzy_NM_86-313999H0.pdfPerforming Laboratory:[place] [address], [place] [address]CU, PARATHYROID IMAGING WITH SPECT/[id number] 15:24:00Reason for exam:->hyperparathyroid [facility] CENTERName: IMELDA VALENCIA : 1950 Sex: MFINAL REPORT PROCEDURE: PARATHYROID SCAN, with SPECT/CT CPT CODE: 63303 INDICATION: Hyperparathyroidism PROTOCOL: 15.7 mCi of Tc- [...] to indicate parathyroid adenoma. Signed: Homero Lanza MDReport Verified Date/Time: 08/05/2020 15:24:48 Reading Location: [address] Reading Room NM parathyroid scan with SPECT/[id number] 15:24:00Interface, External Ris In - 08/05/2020 3:27 PM CSTFINAL REPORT PROCEDURE: PARATHYROID SCAN, with SPECT/CT CPT CODE: 94099 INDICATION: Hyperparathyroidism PROTOCOL: 15.7 mCi of Tc-99m [...] Lanza Verified Date/Time: 08/05/2020 15:24:48 Reading Location: [address] [place] [address] Reading Room [facility]TROP[facility] [id number] 06:36:00 Test Item Value Reference Range Interpretation [...] failure, acidosis, acute neurological disease, and persistent tachyarrhythmia.[employer]ulatory Affairs Internship ID - EDASIBASIC METABOLIC PANEL 2020-08-05 02:59:00 [...] S NOT APPLICABLE FOR DIALYSIS PATIEN TS. Regulatory Affairs Internship ID - EDASITROPONIN [id number] 02:45:00 Test Item Value Reference Range Interpretation [...] failure, acidosis, acute neurological disease, and persistent tachyarrhythmia.Regulatory Affairs Internship ID - [id number] 02:42:00 Test Item Value Reference Range Interpretation Comments MAGNESIUM (BEAKER) (test code = 1.9 mg/dL 1.6-2.6 627) Regulatory Affairs Internship ID - [id number] 02:42:00 Test Item Value Reference Range Interpretation Comments PHOSPHORUS (BEAKER) (test code = 1.6 mg/dL 2.3-4.7 L 604) Regulatory Affairs Internship ID - EDASICBC W/PLT COUNT & AUTO [id number] 02:10:00 Test Item Value Reference Range Interpretation [...] = 2801) RAD, CHEST, 1 VIEW, NON [id number] 02:09:00Reason for exam:->chest painShould this be performed at the bedside?->Yes [facility] : 1950 Sex: MFINAL REPORT History: Chest [...] No significant interval change. Signed: Naren Wang [facility] Centerort Verified Date/Time: 08/05/2020 02:09:03 CALCIUM, [id number] 01:58:00 Test Item Value Reference Range Interpretation Comments CALCIUM IONIZED (BEAKER) (test 1.26 mmol/L 1.12-1.27 code = 698) PH, BLOOD (BEAKER) (test code = 7.39 1810) CBC W/PLT COUNT & AUTO [id number] 06:25:00 Test Item Value Reference Range Interpretation [...] (BEAKER) (test code = 2801) BASIC METABOLIC [id number] 06:11:00 Test Item Value Reference Range Interpretation [...] S NOT APPLICABLE FOR DIALYSIS PATIEN TS. Regulatory Affairs Internship ID - PIJUAN [id number] 06:01:00 Test Item Value Reference Range Interpretation Comments MAGNESIUM (BEAKER) (test code = 2.0 mg/dL 1.6-2.6 627) Reg[employer] Affairs Internship ID - DEQUAN [id number] 06:01:00 Test Item Value Reference Range Interpretation Comments PHOSPHORUS (BEAKER) (test code = 1.9 mg/dL 2.3-4.7 L 604) Reg[employer] Affairs Internship ID - DEQUAN LCALCIUM, [id number] 04:56:00 Test Item Value Reference Range Interpretation Comments CALCIUM IONIZED (BEAKER) (test 1.29 mmol/L 1.12-1.27 H code = 698) PH, BLOOD (BEAKER) (test code = 7.29 1810) Clostridium difficile GDH [id number] 19:30:00 Test Item Value Reference Range Interpretation Comments C. Difficle Toxin Negative Negative (test code = 4520002296) C. Difficile GDH Negative Negative No indicati on of Antigen (test code = Clostri dium 0873023471) difficile infection and n o colonization. Discontinue enteric isolati on and therapy. JERONIMO (test code = Testing performed JERONIMO) by Alere Rapid Cassette Assay. For GDH, published sensitivity of the assay is 98.7% compared to cytotoxicity testing. For Toxin AB, published sensitivity is 87.8% and specificity 99.4% compared to cytotoxicity testing.Verificati on of kit performance was done by the [facility] Microbiology Lab prior to clinical use. Lab Interpretation Normal (test code = 11951-0) [facility] DIFFICILE GDH [id number] 19:30:00 Test Item Value Reference Range Interpretation Comments CDT TOXIN (test code Negative Negative = 9140044232) CDT GDH ANTIGEN (test Negative Negative No ind ication of code = 1130701370) Clostridi um difficile infection and n o colonization. Discontinue ent pat isolation and t herapy. Testing performed by Maag[employer] Rapid Cassette Assay. For GDH, published sensitivity of the assay is 98.7% compared to cytotoxicity testing. 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 Regulatory Affairs Internship ID - [id number] 06:30:00 Test Item Value Reference Range Interpretation Comments MAGNESIUM (BEAKER) 2.2 mg/dL 1.6-2.6 Specimen slightly (test code = 627) hemolyzed [employer] Affairs Internship ID - [id number] 06:30:00 Test Item Value Reference Range Interpretation Comments PHOSPHORUS (BEAKER) 2.3 mg/dL 2.3-4.7 Specimen slightly (test code = 604) hemolyzed [employer] Internship ID - ADMINCBC W/PLT COUNT & AUTO [id number] 06:05:00 Test Item Value Reference Range Interpretation [...] PERCENT (BEAKER) (test code = 2801) CALCIUM, [id number] 05:55:00 Test Item Value Reference Range Interpretation Comments CALCIUM IONIZED (BEAKER) (test 1.37 mmol/L 1.12-1.27 H code = 698) PH, BLOOD (BEAKER) (test code = 7.26 1810) Blood Culture - Routine (Right Venipuncture)2020-08-03 03:00:00 Test Item Value Reference Range Interpretation Comments Result (test code = No growth in 5 days 6463-4) [facility] [id number] 03:00:00 Test Item Value Reference Range Interpretation Comments CULTURE (BEAKER) (test No growth in 5 days code = 1095) BLOOD [id number] 03:00:00 Test Item Value Reference Range Interpretation Comments CULTURE (BEAKER) (test No growth in 5 days code = 1095) [id number] 06:58:00 Test Item Value Reference Range Interpretation Comments MAGNESIUM (BEAKER) 2.0 mg/dL 1.6-2.6 Specimen slightly (test code = 627) hemolyzed [employer] Internship ID - CHARLENE [id number] 06:58:00 Test Item Value Reference Range Interpretation Comments PHOSPHORUS (BEAKER) 2.6 mg/dL 2.3-4.7 Specimen slightly (test code = 604) hemolyzed [employer] Internship ID - CHARLENE MBASIC METABOLIC [id number] 06:58:00 Test Item Value Reference Range Interpretation [...] S NOT APPLICABLE FOR DIALYSIS PATIEN TS. Reg[employer] Affairs Internship ID - CHARLENE MPT, [id number] 06:40:00 Test Item Value Reference Range Interpretation Comments PTH (test code = 2731-8) 86.9 pg/mL 8.5-72.5 H JERONIMO (test code = JERONIMO) Reg[employer] Affairs Internship ID Juwan CHANG M Lab Interpretation (test Abnormal code = 98639-8) [facility]PTH, [id number] 06:40:00 Test Item Value Reference Range Interpretation Comments PARATHYROID HORMONE INTACT 86.9 pg/mL 8.5-72.5 H (BEAKER) (test code = 577) [employer] Internship ID - CHARLENE MCALCIUM, [id number] 06:21:00 Test Item Value Reference Range Interpretation Comments CALCIUM IONIZED (BEAKER) (test 1.32 mmol/L 1.12-1.27 H code = 698) PH, BLOOD (BEAKER) (test code = 7.34 1810) CBC (HEMOGRAM ONLY)2020-08-02 06:12:00 Test Item Value Reference [...] (BEAKER) (test code = 413) BASIC METABOLIC [id number] 07:14:00 Test Item Value Reference Range Interpretation [...] S NOT APPLICABLE FOR DIALYSIS PATIEN TS. Reg[employer] Affairs Internship ID - ANSHU [id number] 07:14:00 Test Item Value Reference Range Interpretation Comments MAGNESIUM (BEAKER) (test code = 1.9 mg/dL 1.6-2.6 627) [employer] Affairs Internship ID - ANSHU [id number] 07:14:00 Test Item Value Reference Range Interpretation Comments PHOSPHORUS (BEAKER) (test code = 2.5 mg/dL 2.3-4.7 604) Reg[employer] Affairs Internship ID - ANSHU FCBC (HEMOGRAM ONLY)2020-08-01 06:21:00 Test Item Value [...] 0-0 (BEAKER) (test code = 413) CALCIUM, [id number] 05:55:00 Test Item Value Reference Range Interpretation Comments CALCIUM IONIZED (BEAKER) (test 1.28 mmol/L 1.12-1.27 H code = 698) PH, BLOOD (BEAKER) (test code = 7.37 1810) BASIC METABOLIC [id number] 06:43:00 Test Item Value Reference Range Interpretation [...] S NOT APPLICABLE FOR DIALYSIS PATIEN TS. Regulatory Affairs Internship ID - [id number] 06:43:00 Test Item Value Reference Range Interpretation Comments MAGNESIUM (BEAKER) (test code = 2.2 mg/dL 1.6-2.6 627) [employer] Affairs Internship ID - [id number] 06:43:00 Test Item Value Reference Range Interpretation Comments PHOSPHORUS (BEAKER) (test code = 2.0 mg/dL 2.3-4.7 L 604) Reg[employer] Affairs Internship ID - DBCBC (HEMOGRAM ONLY)2020-07-31 06:14:00 Test [...] 0-0 (BEAKER) (test code = 413) CALCIUM, [id number] 06:05:00 Test Item Value Reference Range Interpretation Comments CALCIUM IONIZED (BEAKER) (test 1.35 mmol/L 1.12-1.27 H code = 698) PH, BLOOD (BEAKER) (test code = 7.33 1810) CT, CHEST, WITHOUT [id number] 08:31:00Unlisted Reason for Exam - Click Yes and Enter Reason Below->No [facility] : 1950 Sex: MFINAL [...] 8:28 AM on 07/30/2020. Signed: Dee Ozuna MDRepstephanie Verified Date/Time: 07/30/2020 08:31:26 Reading Location: [address] Body Reading Room CT chest without [...] Ozuna MDReport Verified Date/Time:07/30/2020 08:31:26 Reading Location: [facility] B1 C013Y CT Body [facility] [id number] 05:54:00 Test Item Value Reference Range Interpretation [...] S NOT APPLICABLE FOR DIALYSIS PATIEN TS. Reg[employer] Affairs Internship ID - [id number] 05:54:00 Test Item Value Reference Range Interpretation Comments MAGNESIUM (BEAKER) (test code = 2.0 mg/dL 1.6-2.6 627) Reg[employer] Affairs Internship ID - [id number] 05:54:00 Test Item Value Reference Range Interpretation Comments PHOSPHORUS (BEAKER) (test code = 2.4 mg/dL 2.3-4.7 604) Regulatory Affairs Internship ID - EDASICBC (HEMOGRAM ONLY)2020-07-30 05:20:00 Test [...] 0-0 (BEAKER) (test code = 413) CALCIUM, [id number] 05:00:00 Test Item Value Reference Range Interpretation Comments CALCIUM IONIZED (BEAKER) (test 1.38 mmol/L 1.12-1.27 H code = 698) PH, BLOOD (BEAKER) (test code = 7.31 1810) IRON, TIBC, % SAT. (WITHOUT FERRITIN)2020-07-29 18:42:00 Test Item Value Reference Range Interpretation Comments IRON (BEAKER) (test code = 547) 44.0 ug/dL 40.0-160.0 TOTAL IRON BINDING CAPACITY 215 ug/dL 250-450 L (BEAKER) (test code = 769) IRON % SATURATION (2) (BEAKER) 20 % 20-55 (test code = 2590) Reg[employer] Affairs Internship ID - DB2D Echo W/Doppler(CW/PW/Color)2020-07-29 15:57:29Ejection FractionSLEH ECHO HEARTLAB MKCKESSON CPACSInterface, External Ris In - 07/29/2020 3:57 PM CSTTransthoracic Echocardiography Report (TTE) Demographics Patient Name IMELDA VALENCIA Date of Study 07/29/2020 GENE Gender Male Visit Number [id number] Race Unknown Room Number 1054 Number Date of 1950 Referring Mary Verduzco Physician MD Tom Age 70 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) 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 Interpreting Mady Jones MD Physician Procedure Type of Study TTE procedure:2DECHO W DOPPLER(CW/PW/COLOR) (Routine) Indication s:Dyspnea/SOB.Clinical HistoryAFIB, CAD, COPD, HTN, HLD, Respiratory failure, PVD, Stroke, TIAHGB 12.2HCT 39.1 %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: [place] AponteSayight: 67 inches Weight: 48.99 kg (108 lbs) [...] TR Velocity: 2.98 m/s TR Gradient: 35.53 mmHgCHI Alameda HospitalARS-COV2/RT-PCR ([facility]) 2020-07-29 11:34:00 Test Item Value Reference Range Interpretation Comments SARS-COV2/RT-PCR (test Negative Not Detected, Negative, code = 6972186) See external report for linked test SARS-COV-2 PERFORMING LAB [facility] (test code = 5233691) Negative result for this test determines that [...] 564(g) of the Act.Fact Sheet for Healthcare Providers:https://www.[employer]/sites/default/files/product/documents/Fact_Shee a_[place]_Xeuqfhdlz_Ibld_LKIM-TnC-7.pdfFact Sheet for Healthcare Patients:https://www.[employer]/sites/default/files/product/ documents/Dkkt_Hhxgo_Byocnvpg_Qjmi_HOPW-PvI-8.pdfPerforming Laboratory:[facility], [place] [address]OEAMSHFLNLSHZ 2020-07-29 10:20:00 Test Item Value Reference Range Interpretation Comments PROCALCITONIN (BEAKER) (test code 0.11 ng/mL <0.05 H = 3036) SEPSIS RISK (ng/mL)Low: 0.05-0.50Intermediate: 0.51-2.00High: >=2.01Hemoglobin [id number] 09:05:00 Test Item Value Reference Range Interpretation Comments Hemoglobin A1C (test code = 4548-4) 6.6 % 4.3-6.1 H Lab Interpretation (test code = Abnormal 94497-0) [facility] [id number] 09:05:00 Test Item Value Reference Range Interpretation Comments HEMOGLOBIN A1C (BEAKER) (test code = 6.6 % 4.3-6.1 H 368) T4, [id number] 08:33:00 Test Item Value Reference Range Interpretation Comments Free T4 (test code = 0.86 ng/dL 0.7-1.48 3024-7) JERONIMO (test code = JERONIMO) [employer] [facility] ID - MASHA C Lab Interpretation (test Normal code = 21858-5) [facility] [id number] 08:33:00 Test Item Value Reference Range Interpretation Comments FREE T4 (BEAKER) (test code = 655) 0.86 ng/dL 0.70-1.48 [facility] [facility] Internship ID - MASHA [facility]/Free T4 If [id number] 07:37:00 Test Item Value Reference Range Interpretation Comments TSH (test code = 0.156 See_Comment L [Automated 21017-5) message] The system which generated this result transmit tyra reference range : 0.350 - 4.940 uIU/mL. The reference range was not used to interpret this result as normal/abnormal . JERONIMO (test code = JERONIMO) [facility] [facility]ship ID - ARNALDO Lab Interpretation Abnormal (test code = 77747-3) [facility] T4 IF [id number] 07:37:00 Test Item Value Reference Range Interpretation Comments THYROID STIMULATING HORMONE 0.156 uIU/mL 0.350-4.940 L (BEAKER) (test code = 772) [facility] [facility]ship ID - ARNALDOVITAMIN B12 AND [id number] 07:36:00 Test Item Value Reference Range Interpretation Comments VITAMIN B12 (BEAKER) (test code = 386 pg/mL 213-816 774) FOLATE (BEAKER) (test code = 362) 17.10 ng/mL >=7.00 [employer] [facility] Internship ID - ARNALDOLipid [id number] 07:17:00 Test Item Value Reference Range Interpretation Comments Triglycerides (test 81 mg/dL code = 2571-8) Cholesterol (test code 115 mg/dL = 2093-3) HDL (test code = 37 mg/dL 2085-9) LDL Calculated (test 62 mg/dL code = 05046-8) JERONIMO (test code = JERONIMO) Triglyceride Reference Range: Low Risk <150 Borderline 150-199 High Risk 200-499 Very High Risk >=500 Cholesterol Reference Range: Low Risk <200 Borderline 200-239 High Risk >240 HDL Cholesterol Reference Range: Low Risk >=60 High Risk <40 LDL Cholesterol Reference Range: Optimal <100 Near Optimal 100-129 Borderline 130-159 High 160-189 Very High >=190 [facility] - ARNALDO [facility]OLIC [id number] 07:17:00 Test Item Value Reference Range Interpretation [...] S NOT APPLICABLE FOR DIALYSIS PATIEN TS. [employer] [facility] Internship ID - [id number] 07:17:00 Test Item Value Reference Range Interpretation Comments MAGNESIUM (BEAKER) (test code = 1.9 mg/dL 1.6-2.6 627) [facility] [facility] Internship ID - [id number] 07:17:00 Test Item Value Reference Range Interpretation Comments PHOSPHORUS (BEAKER) (test code = 3.9 mg/dL 2.3-4.7 604) [employer] Internship ID - EDASILIPID [id number] 07:17:00 Test Item Value Reference Range Interpretation [...] Borderline 130-159 High 160-189 Very High >=190 [employer] [facility] Internship ID - EDASICBC (HEMOGRAM ONLY)2020-07-29 06:21:00 Test [...] WBC 0-0 (BEAKER) (test code = 413) B-TYPE NATRIURETIC FACTOR (BNP)2020-07-28 22:32:00 Test Item Value Reference Range Interpretation Comments B-TYPE NATRIURETIC PEPTIDE 1360 pg/mL 0-100 H (BEAKER) (test code = 700) [employer] Internship ID - DBComprehensive metabolic [id number] 22:27:00 Test Item Value Reference Range Interpretation Comments Protein, Total (test 6.1 See_Comment [Autom ated code = 2885-2) message] The system which generated this result transmit tyra reference range : 6.0 - 8.3 gm/dL . The reference range was not u sed to interpret th is result as normal/abnormal . Albumin (test code = 3.2 g/dL 3.5-5 L 52515-2) Alkaline Phosphatase 97 U/L 40-150 (test code = 6768-6) Total Bilirubin (test 0.9 mg/dL 0.2-1.2 code = 1975-2) Sodium (test code = 143 meq/L 078-617 6690-2) Potassium (test code 4.3 meq/L 3.5-5.1 = 2823-3) Chloride (test code = 102 meq/L 98-107 5-0) CO2 (test code = 27 meq/L 22-29 8-9) BUN (test code = 24 mg/dL 7-21 H 3094-0) Creatinine (test code 0.82 mg/dL 0.57-1.25 = 2160-0) Glucose (test code = 112 mg/dL 70-105 H 2345-7) Calcium (test code = 9.6 mg/dL 8.4-10.2 21667-5) AST (test code = 18 U/L 5-34 1920-8) ALT (test code = 12 U/L 6-55 1742-6) EGFR (test code = 93 mL/min/1.73 [place] [address]-8) NOT ACCURATE CREATININE CLEARANCE IN PREDICTING GLOMERULAR FILTRATION RATE . ESTIMATED GFR I S NOT APPLICABLE FOR DIALYSIS PATIEN TS. JERONIMO (test code = JERONIMO) Reg[employer] Affairs Internship ID - DB Lab Interpretation Abnormal (test code = 19920-6) [facility] [id number] 22:27:00 Test Item Value Reference Range Interpretation [...] = 382) CO2 (BEAKER) (test 27 meq/L -29 code = 355) BLOOD UREA NITROGEN 24 [...] S NOT APPLICABLE FOR DIALYSIS PATIEN TS. Reg[employer] Affairs Internship ID - [id number] 22:27:00 Test Item Value Reference Range Interpretation Comments MAGNESIUM (BEAKER) (test code = 1.8 mg/dL 1.6-2.6 627) Regulatory Affairs Internship ID - DBCBC W/PLT COUNT & AUTO [id number] 22:13:00 Test Item Value Reference Range Interpretation [...] = 2801) RAD, CHEST, 1 VIEW, NON [id number] 20:27:00Reason for exam:->SOBShould this be performed at the bedside?->Yes [facility] : 1950 Sex: MFINAL [...] sternotomy wires are fractured.. Signed: Ramos Polanco [facility] Verified Date/Time: 07/28/2020 20:27:11 Reading Location: [facility] B1 [id number] Consult Reading Room
[2020-10-30] MEDS ORDERED: ACETAMINOPHEN 325 MG TABLET ONE (18:34)
[2020-10-30 18:35] LABS: Absolute Lymphocytes (CBC) 0.3 K/uL (0.7-4.9); Basophils % 0.4 % (0-1.3); Hematocrit 26.4 % (39.6-49.0); RBC Red Blood Cell Count 2.71 M/uL (4.33-5.43)
[2020-10-30 18:36] LABS: Protime INR 1.14
[2020-10-30] MEDS ORDERED: MORPHINE 4 MG/ML SYR ONE (18:48)
[2020-10-30] MEDS ORDERED: ONDANSETRON 4 MG/2 ML VIAL ONE (18:49)
[2020-10-30 18:57] LABS: ALT/SGPT 16 U/L (12-78); AST/SGOT 19 U/L (15-37); Albumin 2.3 g/dL (3.4-5.0); Alkaline Phosphatase 82 U/L (45-117); BUN Blood Urea Nitrogen 19 mg/dL (7-18); Bicarbonate 32 mmol/L (21-32); Bilirubin Direct 0.3 mg/dL (0-0.2); Bilirubin Total 0.7 mg/dL (0.2-1.0); Glucose Level 105 mg/dL (74-106); NT PRO-BNP 3455 pg/mL (<125); Potassium 3.2 mmol/L (3.5-5.1); Protein, Total 5.7 g/dL (6.4-8.2); Sodium Level 145 mmol/L (136-145); Troponin (Emerg Dept Use Only) < 0.02 ng/mL (0.0-0.045)
[2020-10-30 18:58] LABS: Magnesium 1.6 mg/dL (1.8-2.4)
--- NOTE | 2020-10-30 19:29 | RAD REPORT ---
EXAM DESCRIPTION: RAD - Chest Single View - 10/30/2020 6:35 pm CLINICAL HISTORY: SOB, fever COMPARISON: October 12 TECHNIQUE: AP portable chest image was obtained 10/30/2020 6:35 pm . FINDINGS: Focal right upper lobe lung parenchymal opacification with cystic or cavitary component no tyra similar to comparison. Stranding in the left midlung field is also stable. Patient has a known cy stic cavity in the left apex mostly obscured by a the pacemaker battery pack which has been placed si nce the prior study. Extensive interstitial opacification elsewhere in both lung rankin. Heart and vasculature are normal. No pneumothorax. Bilateral costophrenic angle blunting is present. This is slightly worse on the right and patient may have small right pleural effusion. No acute bony abnormality seen. No acute aortic findings suspected. IMPRESSION: Bilateral lung parenchymal opacities and cystic cavity components stable from September 20 imaging. Extensive interstitial opacification elsewhere in both lung rankin. Severity of chronic disease could easily mask acute edema or infiltrate. Placement of a left side pacemaker since prior imaging study.
[2020-10-30 19:32] LABS: Urine Blood 2+ (NEG); Urine Glucose NEGATIVE (NEG); Urine Protein 1+ (NEG); Urine Specific Gravity 1.025 (1.005-1.030); Urine pH 5.5 (5.0-7.0)
[2020-10-30] MEDS ORDERED: NA CHLORIDE 0.9% 1,000 ML ONE (19:37)
--- NOTE | 2020-10-30 19:58 | RAD REPORT ---
EXAM DESCRIPTION: CT - Angio Aorta For Dissection - 10/30/2020 7:34 pm CLINICAL HISTORY: sob, rule out PE, recent aorta thrombectomy, chest pain COMPARISON: Portable chest October 30, 2020; CT abdomen and pelvis October 12, 2020, CT chest Februar 2020 TECHNIQUE: Dynamically enhanced 3 mm thick images of the chest, abdomen, and upper pelvis were obtai sushil during administration of approximately 150mL Isovue 370 IV contrast. Sagittal and coronal reconst ruction images were generated using MIP and reviewed. Exam utilizes a protocol to evaluate entire cou rse of the aorta. All CT scans are performed using dose optimization technique as appropriate and may include automated exposure control or mA/KV adjustment according to patient size. FINDINGS: No aneurysm or acute dissection of the thoracic aorta. Ascending and aortic arch atheroscl erotic calcifications are relatively mild. More irregular mural thrombus changes are present in the m id and distal portions of the descending thoracic aorta with no change from September 30. Extensive mu ral thrombus is present in the posterior abdominal aorta much of which is calcified. In the upper abd ominal aorta the thrombus occupies approximately 50% of the [place] aortic lumen. Infrarenal component of calcified thrombus occupies approximately 70% of the lumen. No acute changes in the aorta since F ebruary. Celiac and superior mesenteric arteries show no acute component. Patient has a large patent inferior mesenteric artery. Right common iliac artery is patent. Calcifications and stenting present in the proximal portion of t he right external iliac artery. The right internal iliac artery appears significantly narrowed with a reas of stenosis. 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 The left internal iliac artery is occl uded or significantly reduced in size. The enlarged inferior mesenteric artery feeds into the pelvis providing collateralized pathway. The left external iliac artery maintains some patency but is substa ntially reduced in diameter along its entire length. Pulmonary arteries are normal as well. No cardiomegaly, pericardial thickening or pericardial effusio n. Patient has grossly normal pleural and parenchymal findings. There is a large air-filled cystic cavit y filling the upper half of the left hemithorax with parenchymal opacification at the inferior margin similar to comparison. Additional air-filled cystic changes are present in the left lower lobe poste riorly where there is a small pleural fluid component and air-fluid level. Extensive cystic emphysema changes are present in the right apex. A cystic cavity moderate in size in the lateral mid right leidy g field similar in overall size. The cystic cavity is now air-filled rather than containing mostly fl uid on the September CT study. There is densely consolidated parenchyma surrounding the cystic cavity. Air bronchograms are present. Loculated pleural effusions in the posterior lower right lung field pardo ve not changed. Atelectasis changes are present. Patient has a few more reticulonodular opacities in the lateral right lung field and in the left base. Concurrent infection is possible. No abnormal mediastinal or hilar mass or lymphadenopathy seen. No chest wall mass or abnormal axillar y lymphadenopathy. Solid abdominal viscera and bowel show no significant findings. No mass or abnormal lymphadenopathy . No free air, free fluid or inflammatory stranding. Fluid catheter is in place within the contracted urinary bladder. Disc and bone degenerative changes are present. No pathologic bone process. IMPRESSION: Aorta is abnormal but stable. No aneurysm or acute dissection. Extensive partially calci fied thrombus fills 50-70% of the abdominal aortic cross-sectional area. 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 No pulmonary emboli. Extensive pleural and parenchymal changes are present most of which is stable since September CT imagi ng. There are few scattered reticulonodular opacities that could indicate a concurrent infectious pro cess. Additional areas of infection could be masked within the areas of severe chronic lung parenchym al disease.
[2020-10-30 19:59] LABS: Urine Bacteria <20 /HPF (NONE SEEN); Urine RBC >50 /HPF (NONE SEEN); Urine Yeast with Hyphae PRESENT
[2020-10-30 20:00] LABS: Urine Yeast MANY (NONE SEEN)
[2020-10-30] MEDS ORDERED: AZITHROMYCIN 500 MG INJ IVPB ONE (20:04)
[2020-10-30] MEDS ORDERED: NA CHLORIDE 0.9% 250 ML ONE (20:04)
[2020-10-30] MEDS ORDERED: PIPER/TAZO/NS 3.375gm 3.375 GM/100 ML BAG ONE (20:05)
[2020-10-30 20:25] LABS: SARS-COV-2 RT PCR NEGATIVE (NEGATIVE)
[2020-10-30] MEDS ORDERED: NOREPINEPHRINE 4mg/D5W 250mL 4 MG/250 ML BAG IV ONE (21:03)
--- NOTE | 2020-10-30 21:21 | EDPHYS ---
Physician Documentation [facility] Name: Javed Sams Age: 70 yrs Sex: Male : 1950 Arrival Date: 10/30/2020 Time: 17:12 Bed 26 Private MD: ED Physician Regino Lay HPI: 10/30 17:43 This 70 yrs old Male presents to ER via EMS with complaints of Shortness Of jmm Breath. 19:40 The patient has shortness of breath at rest, with light activity. Onset: The jmm symptoms/episode began/occurred today. Duration: The symptoms are continuous. The patient's shortness of breath is aggravated by nothing, is alleviated by nothing. Associated signs and symptoms: Pertinent positives: non-productive cough, fever. The patient has experienced similar episodes in the past. This is a 70 year old male with a history of COPD, GI Bleed, HLP, HTN, hypothyroidism that presents to the ED with complaints of SOB worsening since discharge from hospital 3 days ago. . Historical: - Allergies: 17:18 NKA; hb - Home Meds: 17:18 albuterol sulfate 2.5 mg /3 mL (0.083 %) Inhl nebu every 6 hours [Active]; Allopurinol hb 600 mg Oral once daily [Active]; aspirin 81 mg Oral TbEC 1 tab once daily [Active]; cinacalcet Oral 1 tab once daily [Active]; Eliquis 5 mg Oral tab 1 tab 2 times per day [Active]; Entresto 24-26 mg Oral tab twice a day [Active]; furosemide 20 mg Oral tab 1 tab once daily [Active]; levothyroxine 75 mcg tab 1 tab once daily [Active]; Lipitor 40 mg Oral tab 1 tab once daily [Active]; metoprolol tartrate 25 mg Oral tab 1 tab once daily [Active]; ProAir HFA 90 mcg/actuation inhalation HFAA 2 puffs every 4-6 hours [Active]; - PMHx: 17:18 COPD; GI Bleed; High Cholesterol; Hypertension; Hypothyroidism; hb - Immunization history:: Adult Immunizations up to date. - Social history:: Smoking status: Patient denies any tobacco usage or history of. ROS: 19:40 Constitutional: Positive for fever. jmm 19:40 Cardiovascular: Positive for chest pain. 19:40 Respiratory: Positive for shortness of breath. 19:40 All other systems are negative. Exam: 19:40 Head/Face: atraumatic. Eyes: EOMI, no conjunctival erythema appreciated ENT: Moist jmm Mucus Membranes Neck: Trachea midline, Supple Chest/axilla: Normal chest wall appearance and motion. Cardiovascular: Regular rate and rhythm. No edema appreciated Respiratory: Normal respirations, no respiratory distress appreciated Abdomen/GI: Non distended, soft Back: Normal ROM Skin: General appearance color normal 19:40 Constitutional: The patient appears alert, awake, uncomfortable. 19:40 Neuro: Orientation: is normal, Mentation: is normal, Memory: is normal. Vital Signs: 17:12 BP 112 / 71; Pulse 74; Resp 20; Temp 100.5(TE); Pulse Ox 97% on 10% Nebulizer Mask; hb Pain 8/10; 18:44 BP 113 / 56; Pulse 73; Resp 18; Pulse Ox 95% on 3 lpm NC; ph 19:30 BP 81 / 66; Pulse 71; Resp 16; Pulse Ox 98% on 3 lpm NC; ph 19:57 BP 83 / 54; Pulse 74; Resp 14; Pulse Ox 95% on 3 lpm NC; vg1 20:10 BP 87 / 57; Pulse 73; Resp 14; Temp 98.0(O); Pulse Ox 97% on 3 lpm NC; vg1 21:24 Weight 49.9 kg; vg1 21:39 BP 93 / 56; Pulse 71; Resp 14; Pulse Ox 94% on 3 lpm NC; vg1 Procedures: 20:45 Central Line: the site was prepped with Betadine, in sterile fashion, a triple lumen tw4 catheter was inserted, in the right femoral vein, in 1 attempts. placement was verified, by blood return, the site was dressed with Tegaderm, using sterile technique, the patient tolerated the procedure, well. MDM: 17:34 Patient medically screened. jmm 20:49 Data reviewed: vital signs, nurses notes. ED course: Patient has become hypotensive. jmm Differential would include bleed, sepsis, shock. CTA appears stable to aortic dissection. Some signs of lung infection, considering the patient has increased sob, most likely probable cause. I treated the patient with abx for noscomial pneumonia and dariel blood cultures. Dr. Lay applied central line for pressors. . 10/30 17:36 Order name: Basic Metabolic Panel [facility] 10/30 17:36 Order name: CBC with Diff [facility] 10/30 17:36 Order name: LFT's [facility] 10/30 17:36 Order name: Magnesium; Complete Time: 19:00 [facility] 10/30 17:36 Order name: NT PRO-BNP [facility] 10/30 17:36 Order name: PT-INR [facility] 10/30 17:36 Order name: Troponin (emerg Dept Use Only); Complete Time: 19:00 [facility] 10/30 17:36 Order name: Blood Culture Adult (2) [facility] 10/30 17:36 Order name: Procalcitonin; Complete Time: 19:10 [facility] 10/30 17:36 Order name: Lactate; Complete Time: 18:53 [facility] 10/30 17:41 Order name: Basic Metabolic Panel; Complete Time: 19:00 [facility] 10/30 17:41 Order name: CBC with Automated Diff; Complete Time: 18:37 [facility] 10/30 17:36 Order name: XRAY Chest (1 view) [facility] 10/30 17:41 Order name: Liver (Hepatic) Function; Complete Time: 19:00 [facility] 10/30 17:41 Order name: NT PRO-BNP; Complete Time: 19:00 [facility] 10/30 17:41 Order name: Protime (+INR); Complete Time: 18:37 [facility] 10/30 18:51 Order name: COVID-19 : Document "Date of Symptom Onset" if Symptomatic. ph 10/30 19:00 Order name: CT Aorta for Dissection [facility] 10/30 19:19 Order name: Urine Microscopic Only [facility] 10/30 19:19 Order name: Urine Culture [facility] 10/30 19:29 Order name: Urine Dipstick--Ancillary (enter results) 2 10/30 19:32 Order name: Urine Dipstick-Ancillary; Complete Time: 19:36 EDME 10/30 19:44 Order name: CORONAVIRUS [facility] 10/30 20:00 Order name: Urine Microscopic Only; Complete Time: 20:04 [facility] 10/30 20:25 Order name: COVID-19/FLU A+B; Complete Time: 20:27 [facility] 10/30 21:21 Order name: ABG tw4 10/30 17:36 Order name: EKG; Complete Time: 17:42 [facility] 10/30 17:36 Order name: Cardiac monitoring; Complete Time: 18:06 [facility] 10/30 17:36 Order name: EKG - Nurse/Tech; Complete Time: 18:27 [facility] 10/30 17:36 Order name: IV Saline Lock; Complete Time: 18:28 [facility] 10/30 17:36 Order name: Labs collected and sent; Complete Time: 18:28 [facility] 10/30 17:36 Order name: O2 Per Protocol; Complete Time: 18:06 [facility] 10/30 17:36 Order name: O2 Sat Monitoring; Complete Time: 18:07 [facility] 10/30 17:36 Order name: Urine Dipstick-Ancillary (obtain specimen); Complete Time: 19:21 [facility] 10/30 19:30 Order name: RAD; Complete Time: 19:30 EDMS 10/30 19:58 Order name: CT; Complete Time: 20:04 EDMS Administered Medications: Discontinued: Levophed (4 mg/250 mL D5W 4 mcg/min IV at calculated rate Per protocol; (final concentration is 16 microgram/mL) 18:22 Drug: Tylenol 650 mg Route: PO; hb 18:34 Drug: morphine 4 mg Route: IVP; Site: right antecubital; hb 19:30 Follow up: Response: No adverse reaction ph 18:34 Drug: Zofran (Ondansetron) 4 mg Route: IVP; Site: right antecubital; hb 19:30 Follow up: Response: No adverse reaction ph 19:59 Drug: AZITHromycin 500 mg Route: IVPB; Infused Over: 1 hrs; Site: right antecubital; vg1 21:45 Follow up: IV Status: Completed infusion vg1 19:59 Drug: NS 0.9% 1000 ml {Note: Patient is curretly at 500 mL bolus per provider.} Route: vg1 IV; Rate: 1 bolus; Site: right antecubital; 21:46 Follow up: IV Status: Completed infusion; IV Intake: 700ml vg1 20:50 Drug: Levophed (4 mg/250 mL D5W 4 mcg/min Route: IV; Rate: calculated rate; Site: right ea femoral; 21:30 Drug: Zosyn 3.375 grams Route: IVPB; Infused Over: 60 mins; Site: right antecubital; vg1 21:31 Drug: DOBUTamine (250 mg/250mL premix) 2.5 mcg/kg/min Route: IV; Rate: calculated rate; ea Site: right femoral; 22:43 Follow up: IV Status: Infusion continued upon transfer vg1 22:19 Drug: Albumin 25 grams {Note: Verified with provider of rate and provider stated to use vg1 the program set of pump. 2 vials will be needed. One vial of medication is 12.5g in 50 mL; rate of 100 mL VTBI 50 mL..} Volume: 100 ml; Route: IVPB; Site: Port-a-cath; 22:43 Follow up: IV Status: Infusion continued upon transfer vg1 Disposition: 10/31 05:23 Co-signature as Attending Physician, Regino Lay MD I agree with the assessment and tw4 plan of care. Disposition: 10/30/20 21:21 Transfer ordered to [facility]. Diagnosis are Hypotension, unspecified, Diastolic (congestive) heart failure, Hypoxemia. - Reason for transfer: Higher level of care. - Accepting physician is Dr Ravi. - Condition is Stable. - Problem is new. - Symptoms have improved. Signatures: Dispatcher [employer] EDME Robinson Garcia MD MD cha Mickail, Joel, PA PA jmm Baxter, Heather, RN RN Tiera Flores RN RN ea Wadley, Terrence, MD MD tw4 Rika Scanlon RN RN vg1 Nadira Yang RN ph Corrections: (The following items were deleted from the chart) 10/30 20:37 17:42 Influenza Screen (A \\T\\ B)+BA.LAB.BRZ ordered. [facility] EDMS 22:42 21:21 10/30/2020 21:21 Transfer ordered to [facility]. vg1 Diagnosis is Hypotension, unspecified; Diastolic (congestive) heart failure; Hypoxemia. Reason for transfer: Higher level of care. Accepting physician is Dr Ravi. Condition is Stable. Problem is new. Symptoms have improved. tw4
--- NOTE | 2020-10-30 21:21 | ER ---
Nurse's Notes [facility] Name[facility] Javed Sams Age: 70 yrs Sex: Male : 1950 Arrival Date: 10/30/2020 Time: 17:12 Bed 26 Private MD: Diagnosis: Hypotension, unspecified;Diastolic (congestive) heart failure;Hypoxemia Presentation: 10/30 17:12 Chief complaint: SOB since this morning. SPO2 low 80s, improved to 88% on duoneb. Pt hb reports he is approx one week s/p aortic thrombectomy, dressing dry and intact. Coronavirus screen: Client presents with at least one sign or symptom that may indicate coronavirus-19. Standard/surgical mask placed on the client. Provider contacted for isolation considerations. Ebola Screen: No symptoms or risks identified at this time. Initial Sepsis Screen: Does the patient meet any 2 criteria? No. Patient's initial sepsis screen is negative. Does the patient have a suspected source of infection? No. Patient's initial sepsis screen is negative. Risk Assessment: Do you want to hurt yourself or someone else? Patient reports no desire to harm self or others. Onset of symptoms was October 30, 2020. 17:12 Method Of Arrival: EMS: [facility] hb 17:12 Acuity: LÓPEZ 3 hb 19:33 Acuity: LÓPEZ 2 ph Triage Assessment: 17:19 Respiratory: Reports. hb Historical: - Allergies: 17:18 NKA; hb - Home Meds: 17:18 albuterol sulfate 2.5 mg /3 mL (0.083 %) Inhl nebu every 6 hours [Active]; Allopurinol hb 600 mg Oral once daily [Active]; aspirin 81 mg Oral TbEC 1 tab once daily [Active]; cinacalcet Oral 1 tab once daily [Active]; Eliquis 5 mg Oral tab 1 tab 2 times per day [Active]; Entresto 24-26 mg Oral tab twice a day [Active]; furosemide 20 mg Oral tab 1 tab once daily [Active]; levothyroxine 75 mcg tab 1 tab once daily [Active]; Lipitor 40 mg Oral tab 1 tab once daily [Active]; metoprolol tartrate 25 mg Oral tab 1 tab once daily [Active]; ProAir HFA 90 mcg/actuation inhalation HFAA 2 puffs every 4-6 hours [Active]; - PMHx: 17:18 COPD; GI Bleed; High Cholesterol; Hypertension; Hypothyroidism; hb - Immunization history:: Adult Immunizations up to date. - Social history:: Smoking status: Patient denies any tobacco usage or history of. Screenin:18 Abuse screen: Denies threats or abuse. Denies injuries from another. Nutritional hb screening: No deficits noted. Tuberculosis screening: No symptoms or risk factors identified. Fall Risk Total Rose Fall Scale indicates Low Risk Score (25-44 pts). Fall prevention measures have been instituted. Side Rails Up X 2 Frequent Obs/Assesments occuring As available Patient and Family Educated on Fall Prevention Program and strategies. Assessment: 18:44 General: Appears in no apparent distress. uncomfortable, emaciated, cachectic, Behavior ph is cooperative, appropriate for age. Pain: Complains of pain in chest Pain currently is 8 out of 10 on a pain scale. Neuro: Level of Consciousness is awake, alert, obeys commands, Oriented to person, place, time, situation. Cardiovascular: Reports chest pain, fatigue, shortness of breath, Denies nausea, vomiting, Capillary refill < 3 seconds in bilateral fingers Patient's skin is warm and dry. Respiratory: Airway is patent Respiratory effort is even, unlabored, Respiratory pattern is regular, symmetrical. GI: Patient currently denies abdominal pain, nausea, vomiting. : [place] in place to gravity drainage. EENT: No signs and/or symptoms were reported regarding the EENT system. Derm: Skin is fragile, is thin, Skin is dusky. Musculoskeletal: Amputation of L BKA. 19:20 Reassessment: ERP notified of low BP, fluid bolus ordered, pt taken to CT prior to ph bolus per request of provider to r/o aortic dissection, will reassess BP when pt returns and administer bolus if needed Patient denies pain at this time. 19:56 Reassessment: Patient appears in no apparent distress at this time. Patient and/or vg1 family updated on plan of care and expected duration. Pain level reassessed. Patient is alert, oriented x 3, equal unlabored respirations, skin warm/dry/pink. Vital Signs: 17:12 BP 112 / 71; Pulse 74; Resp 20; Temp 100.5(TE); Pulse Ox 97% on 10% Nebulizer Mask; hb Pain 8/10; 18:44 BP 113 / 56; Pulse 73; Resp 18; Pulse Ox 95% on 3 lpm NC; ph 19:30 BP 81 / 66; Pulse 71; Resp 16; Pulse Ox 98% on 3 lpm NC; ph 19:57 BP 83 / 54; Pulse 74; Resp 14; Pulse Ox 95% on 3 lpm NC; vg1 20:10 BP 87 / 57; Pulse 73; Resp 14; Temp 98.0(O); Pulse Ox 97% on 3 lpm NC; vg1 21:24 Weight 49.9 kg; vg1 21:39 BP 93 / 56; Pulse 71; Resp 14; Pulse Ox 94% on 3 lpm NC; vg1 ED Course: 17:12 Patient arrived in ED. hb 17:17 Triage completed. hb 17:18 Arm band placed on. hb 17:18 Patient has correct armband on for positive identification. Placed in gown. Bed in low hb position. Call light in reach. Side rails up X2. cake knocker on. Pulse ox on. NIBP on. 17:29 Lew Peterson PA is PHCP. [facility] 17:29 Robinson Garcia MD is Attending Physician. [facility] 18:12 Nadira Yang, RN is Primary Nurse. ph 18:20 Inserted saline lock: 20 gauge in right antecubital area, using aseptic technique. hb Blood collected. 19:25 Primary Nurse role handed off by Nadira Yang, RN [facility] 19:42 Rika Scanlon, RN is Primary Nurse. 1 20:16 initiated a transfer with Michelle Winston from [facility]. 2 20:58 Michelle Catrachito from [facility] called to inform us that there will be a mw2 slight delay in transfer due to ICU beds. She state " we are trying to get a hold of an groundskeeper that would be willing to accept the patient on another unit.". 20:59 Attending Physician role handed off by Robinson Garcia MD [facility] 20:59 Regino Lay MD is Attending Physician. [facility] 21:08 doc to doc with the groundskeeper from [facility]. [facility] 21:21 administrative approval given by Michelle Winston/ patient has been accepted to [address] / Dr. Ravi has accepted the patient in transfer/ report to be called to [phone]. 21:58 No provider procedures requiring assistance completed. Patient transferred, IV remains vg1 in place. Administered Medications: Discontinued: Levophed (4 mg/250 mL D5W 4 mcg/min IV at calculated rate Per protocol; (final concentration is 16 microgram/mL) 18:22 Drug: Tylenol 650 mg Route: PO; hb 18:34 Drug: morphine 4 mg Route: IVP; Site: right antecubital; hb 19:30 Follow up: Response: No adverse reaction ph 18:34 Drug: Zofran (Ondansetron) 4 mg Route: IVP; Site: right antecubital; hb 19:30 Follow up: Response: No adverse reaction ph 19:59 Drug: AZITHromycin 500 mg Route: IVPB; Infused Over: 1 hrs; Site: right antecubital; vg1 21:45 Follow up: IV Status: Completed infusion vg1 19:59 Drug: NS 0.9% 1000 ml {Note: Patient is curretly at 500 mL bolus per provider.} Route: vg1 IV; Rate: 1 bolus; Site: right antecubital; 21:46 Follow up: IV Status: Completed infusion; IV Intake: 700ml vg1 20:50 Drug: Levophed (4 mg/250 mL D5W 4 mcg/min Route: IV; Rate: calculated rate; Site: right ea femoral; 21:30 Drug: Zosyn 3.375 grams Route: IVPB; Infused Over: 60 mins; Site: right antecubital; vg1 21:31 Drug: DOBUTamine (250 mg/250mL premix) 2.5 mcg/kg/min Route: IV; Rate: calculated rate; ea Site: right femoral; 22:43 Follow up: IV Status: Infusion continued upon transfer vg1 22:19 Drug: Albumin 25 grams {Note: Verified with provider of rate and provider stated to use vg1 the program set of pump. 2 vials will be needed. One vial of medication is 12.5g in 50 mL; rate of 100 mL VTBI 50 mL..} Volume: 100 ml; Route: IVPB; Site: Port-a-cath; 22:43 Follow up: IV Status: Infusion continued upon transfer vg1 Intake: 21:46 IV: 700ml; Total: 700ml. vg1 Outcome: 21:21 ER care complete, transfer ordered by . tw4 :58 Transferred by ground EMS to [facility]. vg1 :58 critical 21:58 Instructed on the need for admit. 22:42 Patient left the ED. vg1 Signatures: Lew Peterson PA PA jmm Hall, Patricia, RN RN Flory Valle, RN RN Tiera Flores, RN Regino Berrios ea, MD MD 4 Minor Fritz mw2 Rika Scanlon RN RN vg1 Corrections: (The following items were deleted from the chart) 17:21 17:12 Chief complaint: SOB since this morning. SPO2 low 80s, improved to 88% on duoneb. hb Pt is 7 days s/p aortic thrombectomy, dressing dry and intact. 21:24 20:16 initiated a transfer with Michelle Colvin from [facility] mw2 : 20:58 Michelle Colvin from [facility] called to inform us that there will mw2 be a slight delay in transfer due to ICU beds. She state " we are trying to get a hold of an groundskeeper that would be willing to accept the patient on another unit." mw2 21:24 21:08 doc to doc with the groundskeeper from [facility] mw2 mw2
[2020-10-30] MEDS ORDERED: DOBUTAMINE 250 MG/250 ML BAG IV ONE (21:44)
[2020-10-30 22:04] LABS: Arterial Blood Carboxyhemoglob 1.7 % (0-1.5); Blood Gas Oxyhemoglobin 91.5 % (94-97); Blood O2 Saturation 93.9 % (92-98.5)
[2020-10-30] MEDS ORDERED: ALBUMIN HUMAN 25% 50 ML IV ONE ×2 (22:26→22:30)
[2020-10-31 17:43] VITALS: TEMP 98
[2020-10-31 17:45] VITALS: BP 93/56; O2SAT 94
== END 2020-10-30 22:42 | disposition short-term general hospital (02) ==
LOC: ER 17:11
PROC: 06HM33Z Insertion of Infusion Device into Right Femoral Vein, Percutaneous Approach (ICD-10-PCS; principal; 2020-10-30)
DX: I95.9 Hypotension, unspecified (principal); I50.30 Unspecified diastolic (congestive) heart failure; I10 Essential (primary) hypertension; J44.9 Chronic obstructive pulmonary disease, unspecified; E78.00 Pure hypercholesterolemia, unspecified; E03.9 Hypothyroidism, unspecified; Z20.822 Contact with and (suspected) exposure to COVID-19; Z79.01 Long term (current) use of anticoagulants; Z79.82 Long term (current) use of aspirin
CPT/HCPCS: 93005; 87040 ×2; 87088; 85025; 87086; 80048; 36415; 83735; 85610; 80076; 83605; 84484; 84145; 83880; 0240U; 71275; 74175; 71045; 82805; 36556; Q9967; J0456; J2543; P9047 ×2; J7050; J7030; J1250; J2405; 81003; 81015; 86850; 86900; 86901; 99291

== ENCOUNTER 2020-11-17 19:56 | Inpatient (IN) | payer OTHER ==
--- OUTSIDE RECORDS SUMMARY | 2020-11-17 20:08 | XMS REPORT | Continuity of Care Document ---
:1950 Author Organization [facility] t Address [address] [place] [address] Care Team Providers Name Role Phone Steve Mendez MD Primary Care Physician Elie OZUNA Attending Clinician Jocelyne WATTS Attending Clinician Unavailable Maryam Ravi MD Attending Clinician Arlet GUERRA Attending Clinician MARYAM RAVI Attending Clinician Unavailable Mansoor GUERRA Attending Clinician Luis GUERRA Attending Clinician Ysabel GUERRA, PCherise Attending Clinician Guerda GUERRA RCherise Attending Clinician Young Arredondo MD Attending Clinician Yuridia Esquivel MD Attending Clinician [phone] Sanjiv Lantigua MD Attending Clinician Steph Amezcua CRNA Attending Clinician Loretta Reynoso MD Attending Clinician Hira GUERRA Attending Clinician MANSOOR Attending Clinician Unavailable Weston GUERRA Attending Clinician Apoorva Spann MD Attending Clinician Andrez Ramos MD Attending Clinician MARYAM RAVI Admitting Clinician Unavailable LUIS Admitting Clinician Unavailable APOORVA SPANN Admitting Clinician Unavailable Payers Payer Name Policy Type Policy Effective Date Expiration Date Sour ce Number MEDICAREMEDICARE A [id number] 2014 HENRRY Hillman [id number] 2013- 00:00:00 - [facility] [id number] 2014 HENRRY Gavin MEDICAIDMEDICAID 00:00:00 - Medica l [id number] Ce nter 14-Present MEDICAIDMEDICAID [id number] HENRRY Hillman [id number] 2015 00:00:[facility] Advance Directives Directive Decision Effective Date Termination Date Comments Sour ce Partial Code This Yes 2020-10-31 2020-11-08 HENRRY Gavin - code status was 00:00:00 00:00:00 Medical C enter determined by: Patient Drug Protocol After Arrest Occurs? No Mechanical Ventilation with Intubation? No Bag/Mask? Yes Internal/External Pacemaker? Yes Transfer to Critical Care? Yes Chest Compressions? No Defibrillation/Card ioversion? No Problems Condition Condition Condition Status Onset Resolution Last Treating Co mments Source Name Details Category Date Date Treatment Clinician Date Acute Acute Disease Active [facility] hypoxemic hypoxemic 3-15 [facility] - respirator respirator 00:00: Me dical y failure y failure 00 Cent er Acute on Acute on Disease Active [facility] chronic chronic [facility] systolic systolic 00:00: Medica l heart heart 00 Center failure failure Cardiogeni Cardiogeni Disease Active [facility] shock c shock 3-15 [facility] - 00:00: Medical 00 Center History of History of Disease Active [facility] implantabl implantabl 3-10 [facility] - e e 00:00: Medical cardiovert cardiovert 00 Ce nter er-defibri er-defibri llator llator (ICD) (ICD) placement placement Urinary Urinary Disease Active [facility] retention retention 3-10 [facility] - due to due to 00:00: Medical benign benign 00 Center prostatic prostatic hyperplasi hyperplasi a a Peripheral Peripheral Disease Active [facility] vascular vascular 3-10 [facility] - disease, disease, 00:00: Medica l unspecifie unspecifie 00 Ce nter d d Physical Physical Disease Active [facility] deconditio deconditio 3-01 [facility] - luiza luiza 00:00: Medical 00 Center CAD CAD Disease Active [facility] [...] kes - demia) demia) 00:00: Medical 00 [facility] Hypothyroi Hypothyroi Disease Active [facility] dism dism 2-17 [facility] - 00:00: Medical 00 [place] 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 2-17 [facility] - carotid carotid 00:00: Medical artery artery 00 Center [place] Disease Resolve 2020-10-31 2020-10-[address] [facility] catheter catheter d 3-10 00:00:00 08:07:37 [facility] k[facility] - in place in place 00:00: Medica l 00 [facility] Acute Acute Disease Resolve 2019-082020-10-31 2020-10-[address] [facility] decompensa decompensa d 2-10 00:00:00 08:07:09 [facility] - tyra heart tyra heart 00:00: Medi beverly failure failure 00 [facility] SOB SOB Disease Resolve 2019-082020-10-31 2020-10-[address] [facility] (shortness (shortness d 2-10 00:00:00 08:07:31 [facility] - of breath) of breath) 00:00: Me dical 00 [place] Atrial Atrial Disease Resolve 2020-10-312020-10-[address] [facility] fibrillati fibrillati d 3- 00:00:00 08:07:08 [facility] - on with on with 00:00: Medical RVR RVR 00 Center Moraxella Moraxella Disease Resolve 2020-10-31 2020-10-[address] [facility] catarrhali catarrhali d 3 00:00:00 08:07:29 [facility] - s s 00:00: Medical bronchitis bronchitis 00 Ce nter Respirator Respirator Disease Resolve 2020-10-31 2020-10-[address] [facility] y failure y failure d 2- 00:00:00 08:07:27 [facility] - with with 00:00: Medical hypoxia hypoxia 00 Center Coronary Coronary Disease Resolve 2020-10-31 2020-10-[address] [facility] artery artery d 2- 00:00:00 08:07:22 [facility] - disease disease 00:00: Medical 00 [place] Acute Acute Disease Resolve 2020-10-31 2020-10-[address] [facility] [address] post-opera post-opera d 2-24 00:00:00 08:07:24 [facility] - tive pain tive pain 00:00: Medi beverly 00 [place] Ischemic Ischemic Disease Resolve 2020-10-26 2020-10-[address] [facility] colitis colitis d 3- 00:00:00 14:26:46 [facility] - 00:00: Medical 00 [place] Aortic Aortic Disease Resolve 2020-10-26 2020-10-[address] [facility] thrombus thrombus d 2-24 00:00:00 14:25:24 [facility] - 00:00: Medical 00 Center Acute Acute Disease Resolve 2020-10-26 2020-10-[address] [facility] respirator respirator d 2-24 00:00:00 14:26:27 [facility] - y y 00:00: Medical insufficie insufficie 00 Ce nter ncy, ncy, postoperat postoperat gordy gordy Postoperat Postoperat Disease Resolve 2020-10-26 2020-10-[address] [facility] [address] gordy anemia gordy anemia d 2-24 00:00:00 14:26:26 [facility] - due to due to 00:00: Medical acute acute 00 Center blood loss blood loss Allergies, Adverse Reactions, Alerts Allergy Allergy Status Severity Reaction(s) Onset Inactive Treating Comm ents Source Name Type Date Date Clinician Doxylami Drug Active Other (See 2019-08 Patient HENRRY Belle n-Pse-Dm Intolera Comments) 2-10 states he [facility] - -Acetami nce 00:00: gets Medical nophen 00 nervous Center Morphine Adverse Active Info Not [facility] Sulfate Reaction Available [facility] Family History Family Member Diagnosis Comments Start Date Stop Date Source Natural brother Heart disease [facility] Natural mother Heart disease [facility] Social History Social Habit Start Date Stop Date Quantity Comments Source Sex Assigned At [facility] Exposure to Not sure [facility] - SARS-CoV-2 (event) [facility] Cigarettes smoked 2020-10-30 2020-10-30 [facility] - current (pack per 00:00:00 00:00:00 [facility] Center day) - Reported Cigarette 2020-10-30 2020-10-30 [facility] - pack-years 00:00:00 00:00:00 [facility] Tobacco use and 2020-10-30 2020-10-30 Never used [facility] - exposure 00:00:00 00:00:00 [facility] Alcohol intake 2020-10-30 2020-10-30 Current drinker HENRRY miller ryann - 00:00:00 00:00:00 of alcohol [facility] (finding) Alcohol Comment 2015-10-05 2015-10-05 2 rajniy [facility] - 00:00:00 00:00:00 [facility] Smoking Status Start Date Stop Date Source Current every day smoker 2020-10-30 00:00:00 [facility] Medications Ordered Filled Start Stop Current Ordering Indication Dosage Frequency Signature Comments Components Source Medication Medication Date Date Medication? Clinician (SIG) Name Name predniSONE 2020- No 10mg QD Take [address] [facility] (DELTASONE) 11-10- tablet (10 L ukes - 10 MG 00:00: 00:00 mg total) Medica l tablet 00 :00 by mouth Center daily for 5 days. predniSONE 2020- No 5mg QD Take [address] [facility] (DELTASONE) 11-09 tablet (5 Ashley kes - 5 MG tablet 00:00: 23:59 mg total) Medical 00 :00 by mouth Center daily for 5 days. allopurinol Yes 100mg QD Take [address] (ZYLOPRIM) 3-23 mg by [facility] - 100 MG 14:42: mouth Medical tablet 31 daily. Center guaiFENesin 2021- Yes 600mg Take [address] (mucINEX) 11-08 tablet [facility] - 600 mg 12 00:00: 23:59 (600 mg Medi beverly hr tablet 00 :00 total) by Cente r mouth 2 (two) times daily as needed for Congestion . furosemide 2021- Yes 20mg Take 0.[address] (LASIX) 40 11-08 tablets [facility] - MG tablet 00:00: 23:59 (20 mg Medic al 00 :00 total) by Center mouth 2 (two) times daily. metoprolol 2020- Yes 12.5mg Q.5D Take 0.[address] [facility] [address] tartrate 11-08 tablets [facility] - (LOPRESSOR) 00:00: 23:59 (12.5 mg M edical 25 MG 00 :00 total) by Center tablet mouth 2 (two) times daily for 90 days. mirtazapine 2020- Yes 7.5mg QD Take [address] (REMERON) 11-08 tablet [facility] - 7.5 MG 00:00: 23:59 (7.5 mg Medical tablet 00 :00 total) by Center mouth nightly for 90 days. ipratropium 2020- Yes 3mL Take [address] [facility] -albuteroL 11-08 by [facility] - (DUO-NEB) 00:00: 23:59 nebulizati M edical 0.5 mg-3 00 :00 on every 4 Cente r mg(2.5 mg (four) base)/3 mL hours for nebulizer 90 days. solution Lactobacill 2020- Yes 1{tbl} Q.5D Take [address] us 11-08 tablet by Rafy - acidoph-L.b 00:00: 23:59 mouth 2 Me dical ulgar 00 :00 (two) Center (FLORANEX) times 1 million daily for cell Tab 60 days. per tablet dronabinoL 2020- Yes 2.5mg Q.5D Take [address] [facility] (MARINOL) 11-08 04-22 capsule [facility] - 2.5 MG 00:00: 23:59 (2.5 mg Medical capsule 00 :00 total) by Center mouth 2 (two) times daily for 30 days. Max Daily Amount: 5 mg ondansetron 2020- No 4mg Take [address] [facility] (ZOFRAN-ODT 11-08 03-30 tablet (4 [facility] - ) 4 MG 00:00: 23:59 mg total) Medic al disintegrat 00 :00 by mouth 3 Ce nter ing tablet (three) times daily before meals for 7 days. predniSONE 2020- No 20mg QD Take [address] [facility] (DELTASONE) 11-05-23 tablet (20 L ukes - 20 MG 00:00: 00:00 mg total) Medica l tablet 00 :00 by mouth Center daily for 5 days. predniSONE 2020- No 30mg QD Take [address] [facility] (DELTASONE) 3-15 -23 tablets [facility] - 10 MG 00:00: 00:00 (30 mg Medical tablet 00 :00 total) by Center mouth daily for 5 days. tamsulosin Yes .8mg QD Take 2 [facility] [...] morning on an empty stomach. predniSONE 2020- No 40mg QD Take [address] [facility] (DELTASONE) 10-27 tablets [facility] - 20 MG 00:00: 00:00 (40 mg Medical tablet 00 :00 total) by Center mouth daily for 5 days. losartan 2020- No 25mg QD Take [address] [facility] (COZAAR) 25 10-27 tablet (25 L ukes - MG tablet 00:00: 00:00 mg total) Me dical 00 :00 by mouth Center daily. cinacalcet 2020- No 30mg Take [address] [facility] (SENSIPAR) 10-27 tablet (30 [facility] k[facility] - 30 MG 00:00: 00:00 mg total) Medica l tablet 00 :00 by mouth Center daily with breakfast for 90 days. levothyroxi 2020- No 75ug Take [address] [facility] ne 10-27 tablet (75 [facility] - (SYNTHROID, 00:00: 00:00 mcg total) Medical LEVOTHROID) 00 :00 by mouth Cent er 75 MCG Every tablet morning on an empty stomach. albuterol 2020- No 1{puff} Inhale [address] [facility] HFA 10-26 puff by [facility] - (VENTOLIN 14:23: 00:00 mouth via Me dical HFA) 90 49 :00 inhaler Center mcg/actuati every 6 on inhaler (six) hours as needed for Wheezing. nicotine 2020- No 1{patch Q24H Place [address] (NICODERM 3-10 03-10 } patch onto Vinay es - CQ) 14 14:23: 00:00 the skin Medica l mg/24 hr 49 :00 daily. Center patch apixaban 2020- No 1{tbl} Q.5D Take [address] [facility] (Eliquis) 5 3-10 03-10 tablet by [facility] - mg Tab 14:23: 00:00 mouth 2 Medical tablet 49 :00 (two) Center times daily. aspirin 81 2020- No 1{tbl} QD Take [address] MG EC 3-10 03-10 tablet by [facility] - tablet 14:23: 00:00 mouth Medical 49 :00 daily. Center arformotero 2020- No 1{ampul Q.5D Take [address] [facility] L (BROVANA) 3-10 03-10 e} ampule by [facility] kes - 15 mcg/2 mL 14:23: 00:00 nebulizati Medical nebulizer 49 :00 on 2 (two) Cent er solution times daily. atorvastati 2020- No 1{tbl} QD Take [address] n (Lipitor) 3-10 03-10 tablet by [facility] kes - 40 MG 14:23: 00:00 mouth Medical tablet 49 :00 daily. Center albuterol 2020- No 2{puff} Inhale [address] [facility] HFA 3-10 03-10 puffs by [facility] - (VENTOLIN 14:23: 00:00 mouth via Me dical HFA) 90 49 :00 inhaler Center mcg/actuati every 6 on inhaler (six) hours as needed. arformotero Yes 15ug Q.5D Take [address] [facility] L (BROVANA) 3-10 (15 mcg [facility] - 15 mcg/2 mL 00:00: total) by M edical nebulizer 00 nebulizati Cent er solution on 2 (two) times daily. melatonin 3 2021-0 Yes 3mg Take [address] [facility] mg [...] 7.5 toe wounds % Soln soap daily. senna 2021- Yes 8.6mg QD Take [address] [facility] (SENOKOT) - 03-10 tablet [facility] - 8.6 mg 00:00: 23:59 (8.6 mg Medical tablet 00 :00 total) by Center mouth nightly. acetaminoph 2021- Yes 650mg Take [address] [facility] en - 03-05 tablets [facility] - (TYLENOL) 00:00: 23:59 (650 mg Medi beverly 325 MG 00 :00 total) by Center tablet mouth every 4 (four) hours as needed for up to 360 days. apixaban 2020- Yes 2.5mg Q.5D Take 1 [facility] (ELIQUIS) - 04-09 tablet [facility] - 2.5 mg Tab 00:00: 23:59 (2.5 mg Med ical tablet 00 :00 total) by Center mouth 2 (two) times daily for 30 days. albuterol 2020- No 2.5mg Take [address] [facility] (PROVENTIL) -05 21-23 (2.5 mg [facility] - 2.5 mg /3 00:00: 00:00 total) by Me dical mL (0.083 00 :00 nebulizati Cent er %) on every 4 nebulizer (four) solution hours as needed for Wheezing or Shortness of Breath. furosemide 2020- No 40mg Take [address] [facility] (LASIX) 40 -05 21-23 tablet (40 [facility] kes - MG tablet 00:00: 00:00 mg total) Me dical 00 :00 by mouth 2 Center (two) times daily. acetylcyste 2020- No 2mL Take [address] [facility] ine 20% 10-26 by [facility] - (MucoMYST) 00:00: 00:00 nebulizati Medical 200 mg/mL 00 :00 on every 6 Cent er (20 %) (six) nebulizer hours. solution guaiFENesin 2020- No 600mg Q.5D Take [address] (mucINEX) 10-26 tablet [facility] - 600 mg 12 00:00: 00:00 (600 mg Medi beverly hr tablet 00 :00 total) by Cente r mouth 2 (two) times daily. ipratropium 2020- No .5mg Take 2.[address] (ATROVENT) 10-26 mLs (0.5 [facility] - 0.02 % 00:00: 00:00 mg total) Medic al nebulizer 00 :00 by Center solution nebulizati on 4 (four) times daily as needed. metoprolol 2020- No 25mg Q.5D Take [address] [facility] tartrate 10-26 tablet (25 [facility] - (LOPRESSOR) 00:00: 00:00 mg total) Medical 25 MG 00 :00 by mouth 2 Center tablet (two) times daily. mINOCYCLine 2020- No 100mg Take [address] (MINOCIN,DY 10-26 capsule [facility] - NACIN) 100 00:00: 00:00 (100 mg Med ical MG capsule 00 :00 total) by Cent er mouth every 12 (twelve) hours for 5 days. polyethylen 2020- No 17g Take [address] [facility] e glycol 10-2613 by mouth [facility] - (GLYCOLAX) 00:00: 23:59 daily as Me dical 17 gram 00 :00 needed Center packet (Constipat ion) for up to 3 days. furosemide 2020- No 1{tbl} Q.5D Take [address] (LASIX) 40 2-04 11-10 tablet by Vinay es - MG tablet 00:00: 00:00 mouth 2 Medi beverly 00 :00 (two) Center times daily. doxycycline 2020- No Use as [facility] (VIBRAMYCIN 10-07 directed. [facility] - ) 100 MG 00:00: 00:00 Medical capsule 00 :00 Center levoFLOXaci 2020- No 1{tbl} QD Take [address] n 10-0710 tablet by [facility] - (LEVAQUIN) 00:00: 00:00 mouth Medic al 750 MG 00 :00 daily. Center tablet predniSONE 2020- No 1{tbl} Q.5D Take [address] [facility] (DELTASONE) 10-07 tablet by [facility] kes - 20 MG 00:00: 00:00 mouth 2 Medical tablet 00 :00 (two) Center times daily. predniSONE 2020- No 1{tbl} QD Take [address] (DELTASONE) 09-21 tablet by [facility] kes - 10 MG 00:00: 00:00 mouth Medical tablet 00 :00 daily. [facility] cinacalcet 2020- No TAKE [address] [facility] (SENSIPAR) 09-16-10 TABLET(30 Vinay es - 30 MG 00:00: [...] 2020- No TAKE [address] [facility] ne 09-16-10 TABLET(75 [facility] - (SYNTHROID, 00:00: 00:00 MCG) BY Ut dical LEVOTHROID) 00 :00 MOUTH Center 75 MCG EVERY tablet MORNING ON AN EMPTY STOMACH Entresto No TAKE 1/[address] [facility] 24-26 mg 09-1610 TABLET BY [facility] - Tab 00:00: 00:00 MOUTH Medical 00 :00 TWICE Center DAILY allopurinoL No 1{tbl} QD Take [address] (ZYLOPRIM) 09-0610 tablet by Vinay es - 300 MG 00:00: 00:00 mouth Medical tablet 00 :00 daily. Center levothyroxi 2019-08 75ug Take [address] ne 12-29 mcg by [facility] - (SYNTHROID, 14:03: 00:00 mouth Medi beverly LEVOTHROID) 40 :00 Every Center 75 MCG morning on tablet an empty stomach . cinacalcet 2019-08 30mg Take [address] [facility] (SENSIPAR) 10-10 tablet (30 [facility] kes - 30 MG 00:00: 00:00 mg total) Medica l tablet 00 :00 by mouth Center daily with breakfast for 30 days. furosemide 2019-08 20mg QD Take [address] [facility] (LASIX) 20 10-10 tablet (20 [facility] kes - MG tablet 00:00: 00:00 mg total) Me dical 00 :00 by mouth Center daily for 30 days. metoprolol 2019-08 25mg QD Take [address] [facility] succinate 10-10 tablet (25 Vinay es - (TOPROL-XL) 00:00: 00:00 mg total) Medical 25 MG 24 hr 00 :00 by mouth Cent er tablet daily for 30 days. aspirin 81 2019-08 81mg QD Take [address] [facility] MG chewable 10-10 tablet (81 L ukes - tablet 00:00: 23:59 mg total) Medic al 00 :00 by mouth Center daily for 30 days. pantoprazol 2019-08 No 40mg QD Take [address] [facility] e 10-10 tablet (40 [facility] - (PROTONIX) 00:00: 23:59 mg total) M edical 40 MG 00 :00 by mouth Center tablet daily for 30 days. albuterol 2019-08 No 1{ampul Take [address] (ACCUNEB) 10-09 e} ampule by Luke s - 0.63 mg/3 09:06: 00:00 nebulizati M edical mL 18 :00 on every 6 Center nebulizer (six) solution hours as needed for Wheezing. atorvastati 2019-08 80mg QD Take [address] [facility] n (LIPITOR) 10-09- by mouth Vinay es - 80 MG 09:06: 00:00 daily. Medical tablet 18 :00 [facility] aspirin 325 2019-08 325mg QD Take [address] [facility] MG tablet - 12-21 mg by [facility] - 09:06: 00:00 mouth Medical 14 :00 daily. [facility] esomeprazol 2019-08 20mg QD Take [address] [facility] e (NEXIUM) 10-09- by mouth Luke s - 20 MG 09:06: 00:00 daily. Medical capsule 14 :00 [facility] predniSONE 2019-08 10mg QD Take [address] [facility] (DELTASONE) 10-09- by mouth Vinay es - 10 MG 09:06: 00:00 daily. Medical tablet 14 :00 [facility] budesonide 2019-08 .5mg Q.5D Take [address] [facility] (PULMICORT) 10-09 (0.5 mg [facility] - 0.5 mg/2 mL 00:00: 23:59 total) by Medical nebulizer 00 :00 nebulizati Cent er solution on 2 (two) times daily. nitroglycer 2019-08 Put [address] [facility] in 10-09 03-10 under [facility] - (NITROSTAT) 00:00: 00:00 tongue Med ical 0.4 MG SL 00 :00 every 5min Cent er tablet as needed for chest pain.No more than 3 doses in 15min.Call 911 if pain unrelieved 5min after 1st dose. atorvastati 2019-08 No 40mg QD Take [address] [facility] n (LIPITOR) 10-09 tablet (40 L ukes - 40 MG 00:00: 00:00 mg total) Medica l tablet 00 :00 by mouth Center daily for 30 days. levothyroxi 2019-08 No 75ug Take [address] [facility] ne 10-09 tablet (75 [facility] - (SYNTHROID, 00:00: 00:00 mcg total) Medical LEVOTHROID) 00 :00 by mouth Cent er 75 MCG Every tablet morning on an empty stomach. sacubitriL- 2019-08 No .5{tbl} Q.5D Take 0.[address] [facility] [address] valsartan 10-09 tablets by Vinay es - (Entresto) 00:00: 00:00 mouth 2 Med ical 24-26 mg 00 :00 (two) Center Tab times daily for 30 days. albuterol 2019-08 No .63mg Take [address] [facility] (ACCUNEB) 10-09 (0.63 mg [facility] - 0.63 mg/3 00:00: 23:59 total) by Ut dical mL 00 :00 nebulizati Center nebulizer on every 6 solution (six) hours as needed for Wheezing for up to 30 days. apixaban 2019-08 No 5mg Q.5D Take [address] [facility] (ELIQUIS) 5 10-09 tablet (5 [facility] kes - mg Tab 00:00: 23:59 mg total) Medic al tablet 00 :00 by mouth 2 Center (two) times daily for 30 days. arformotero 2019-08 No 15ug Q.5D Take [address] [facility] L (BROVANA) 10-09 (15 mcg Luke [facility] - 15 mcg/2 mL 00:00: 23:59 total) by Medical nebulizer 00 :00 [address]bul[address] Cent er solution on 2 (two) times daily for 30 days. clopidogrel 2019-08- No 75mg QD Take [address] [facility] (PLAVIX) 75 2-10 12-10 by mouth Vinay es - mg tablet 22:00: 00:00 daily. Medic al 22 :00 Center Trelegy 2019-08- No 1{puff} QD Inhale [address] Ellipta 2-03 03-10 puff by Rafy - 100-62.5-25 00:00: 00:00 mouth via Medical mcg DsDv 00 :00 inhaler Center daily . Nexium Nexium Yes Frank [address] [facility] Arredondo [facility] Immunizations Ordered Filled Immunization Date Status Comments [facility] e Immunization Name Name FluAD FluAD 2019-04-29 [facility] 00:00:00 [facility] Vital Signs Vital Name Observation Time Observation Value Comments Source Systolic blood 2020-11-08 12:10:00 91 mm[Hg] [facility] Diastolic blood 2020-11-08 12:10:00 54 mm[Hg] [facility] Heart rate 2020-11-08 12:10:00 65 /min [facility] Body temperature 2020-11-08 12:10:00 36.61 Tabatha [facility] Respiratory rate 2020-11-08 12:10:00 20 /min [facility] Oxygen saturation in 2020-11-08 12:10:00 95 /min [facility] Arterial blood by Medical Ce nter Pulse oximetry Body weight 2020-11-01 04:00:00 43.5 kg [facility] BMI 2020-11-01 04:00:00 15.02 kg/m2 [facility] Body height 2020-10-31 00:30:00 170.2 cm [facility] Procedures Procedure Date / Time Performing Clinician Source Performed SARS-COV2/RT-PCR ([facility] & 2020-11-07 16:58:00 [facility] - REF LABS) [facility] BASIC METABOLIC PANEL (7) 2020-11-07 05:14:00 [facility] MAGNESIUM 2020-11-07 05:14:00 [facility] BASIC METABOLIC PANEL (7) 2020-11-06 05:20:00 [facility] MAGNESIUM 2020-11-06 05:20:00 [facility] POCT-GLUCOSE METER 2020-11-05 12:37:00 [facility] CBC W/PLT COUNT & AUTO 2020-11-05 04:35:00 Jaimie Cordero [facility] MAGNESIUM 2020-11-05 04:35:00 Jaimie Cordero ryan [facility] BASIC METABOLIC PANEL (7) 2020-11-05 04:35:00 CorderoSachinbrady Parker [facility] CBC W/PLT COUNT & AUTO 2020-11-04 04:06:00 CorderoJaimieryan [facility] MAGNESIUM 2020-11-04 04:06:00 Gil Jaimie ryan [facility] BASIC METABOLIC PANEL (7) 2020-11-04 04:06:00 CorderoSachinbrady Parker [facility] CBC W/PLT COUNT & AUTO 2020-11-03 04:06:00 Cordero Jaimie [facility] MAGNESIUM 2020-11-03 04:06:00 Gil Jaimie ryan [facility] BASIC METABOLIC PANEL (7) 2020-11-03 04:06:00 CorderoSachince Sayryan [facility] CBC W/PLT COUNT & AUTO 2020-11-02 04:01:00 Cordero Jaimie [facility] HEPATIC FUNCTION PANEL 2020-11-02 04:01:00 StevensMarino higuera [facility] MAGNESIUM 2020-11-02 04:01:00 Christina Chang [facility] BASIC METABOLIC PANEL (7) 2020-11-02 [facility]:01[facility]-RED[facility] RBC 2020-11-01 23:54:00 Fidencio Stevensrus Eula [facility] MAGNESIUM 2020-11-01 15:20:00 Christina Chang [facility] BASIC METABOLIC PANEL (7) 2020-11-01 15:20:00 [facility] CHEST WITHOUT IV 2020-11-01 11:48:00 Elisa Esquivel [facility] CBC W/PLT COUNT & AUTO 2020-11-01 02:55:00 Gil Jaimie [facility] HEPATIC FUNCTION PANEL 2020-11-01 02:55:00 StevensMarino higuera [facility] TSH/FREE T4 IF INDICATED 2020-11-01 02:55:00 Jaimie Cordero ryan [facility] MAGNESIUM 2020-11-01 02:55:00 Christina Chang [facility] BASIC METABOLIC PANEL (7) 2020-11-01 02:55:00 Truman Ravi [facility] BASIC METABOLIC PANEL (7) 2020-10-31 21:18:00 Marino Stevens [facility] B-TYPE NATRIURETIC FACTOR 2020-10-31 14:34:[address] [facility] (BNP) [facility] SARS-COV2/RT-PCR ([facility] & 2020-10-31 13:46:00 Jaimie Cordero ryan [facility] - REF LABS) Medical Center HEMOGLOBIN AND HEMATOCRIT 2020-10-31 11:45:00 Clement [facility] POTASSIUM 2020-10-31 11:45:00 Clement [facility] OXYGEN SATURATION, 2020-10-31 11:45:00 Clement [facility] MAGNESIUM 2020-10-31 11:45:00 Gil Jaimie [facility] TRANSFUSE LEUKO-REDUCED 2020-10-31 09:51:49 [facility] XR CHEST 1 VIEW 2020-10-31 08:36:[address] [facility] PORTABLE/BEDSIDE Medical Center URINE CULTURE 2020-10-31 05:21:00 StevensMarino [facility] URINALYSIS W/ REFLEX URINE 2020-10-31 05:21:00 [facility] PT/APTT 2020-10-31 04:21:00 Stevens [facility] PROTHROMBIN TIME/INR 2020-10-31 04:21:00 [facility] TYPE AND SCREEN, AUTOMATED 2020-10-31 04:21:00 [facility] W/[facility]T COUNT & AUTO 2020-10-31 03:21:00 Jaimie Cordero [facility] BASIC METABOLIC PANEL (7) 2020-10-31 03:21:00 Stevens, [facility] MAGNESIUM 2020-10-31 03:21:00 Stevens, [facility] PAN[facility] 2020-10-31 03:21:00 Stevens, Hollister [facility] BASIC METABOLIC PANEL (7) 2020-10-26 03:54:00 Justine [facility] MAGNESIUM 2020-10-26 03:54:00 Justine [facility] CBC W/PLT COUNT & AUTO 2020-10-26 03:54:00 Torres Narayanan [facility] AICD GENERATOR & LEADS - 2020-10-25 13:03:00 Elva Esquivel [facility] - INSERTION W/ GENERAL Yuridia [facility] ANESTHESIA (SING/DUAL/MULT) BASIC METABOLIC PANEL (7) 2020-10-25 06:25:00 Tangela Fletcher [facility] MAGNESIUM 2020-10-25 06:25:00 Tangela Fletcher [facility] PROTHROMBIN TIME/INR 2020-10-25 06:24:00 Jordon Hamlin [facility] LACTIC ACID, VENOUS 2020-10-24 22:42:[address] [facility] BASIC METABOLIC PANEL (7) 2020-10-24 22:42:[address] [facility] MAGNESIUM 2020-10-24 22:42:[address] [facility] HEPATIC FUNCTION PANEL 2020-10-24 22:42:[address] [facility] LACTIC ACID, VENOUS 2020-10-24 16:24:00 Lady, Torres Woodson [facility] TYPE AND SCREEN, AUTOMATED 2020-10-24 16:24:00 Fidelina Esquivel [facility] SARS-COV2/RT-PCR ([facility] & 2020-10-24 12:34:00 Elva Esquivel [facility] - REF LABS) [facility] BLOOD GAS, ARTERIAL 2020-10-24 11:47:00 Lady, Torres Woodson [facility] XR CHEST 1 VIEW 2020-10-24 10:34:00 Lady, Torres Woodson [facility] PORTABLE/BEDSIDE [facility] LACTIC ACID, VENOUS 2020-10-24 10:24:00 Lady, Torres Woodson [facility] BASIC METABOLIC PANEL (7) 2020-10-24 03:31:00 Justine [facility] MAGNESIUM 2020-10-24 03:31:00 Justine [facility] XR CHEST 1 VIEW 2020-10-23 11:07:00 Lady, Torres Woodson Critical access hospital/BEDSIDE [facility] BASIC METABOLIC PANEL (7) 2020-10-23 05:27:00 Lady, Torres Hernandez rd [facility] MAGNESIUM 2020-10-23 05:27:00 Lady, Torres Woodson [facility] BLOOD GAS, ARTERIAL 2020-10-22 09:24:00 Brisa Croft [facility] CBC W/PLT COUNT & AUTO 2020-10-22 04:29:00 Lady, Torres Woodson [facility] BASIC METABOLIC PANEL (7) 2020-10-22 04:29:00 Lady, Torres Hernandez rd [facility] MAGNESIUM 2020-10-22 04:29:00 Lady, Torres Woodson [facility] B-TYPE NATRIURETIC FACTOR 2020-10-21 04:15:[address] [facility] (BNP) [facility] CBC W/PLT COUNT & AUTO 2020-10-21 04:15:00 Lady, Torresmelanie Woodson [facility] BASIC METABOLIC PANEL (7) 2020-10-21 04:15:00 Lady, Torres Hernandez rd [facility] MAGNESIUM 2020-10-21 04:15:00 Lady, Torres Woodson [facility] ECG 12-LEAD 2020-10-20 18:05:14 [facility] TROPONIN I 2020-10-20 17:58:00 [facility] CBC W/PLT COUNT & AUTO 2020-10-20 07:49:00 Lady, Torres [facility] BASIC METABOLIC PANEL (7) 2020-10-20 07:49:00 Lady, Torres Hernandez rd [facility] MAGNESIUM 2020-10-20 07:49:00 [facility] IRON, TIBC, % SAT. 2020-10-20 07:49:00 Lady, [facility] (WITHOUT FERRITIN) [facility] FERR[facility]IN 2020-10-20 07:49:00 Lady, [facility] VITAMIN B12 AND FOLATE 2020-10-20 07:49:00 Lady, [facility] HEPARIN ANTIBODY 2020-10-19 13:19:00 Lady, Torres [facility] CBC W/PLT COUNT & AUTO 2020-10-19 03:33:00 Val Grady [facility] BASIC METABOLIC PANEL (7) 2020-10-19 03:33:00 Val Grady [facility] TROPONIN I 2020-10-18 21:28:00 [facility] BLOOD GAS, ARTERIAL 2020-10-18 11:18:00 Val Grady [facility] XR CHEST 1 VIEW 2020-10-18 11:05:[address] [facility] - PORTABLE/BEDSIDE Medical Center TROPONIN I 2020-10-18 10:16:00 Val Grady [facility] B-TYPE NATRIURETIC FACTOR 2020-10-18 10:16:[address] [facility] (BNP) [facility] ECG 12-LEAD 2020-10-18 09:48:28 Unknown, Hl7 Doctor [facility] BASIC METABOLIC PANEL (7) 2020-10-18 03:34:00 Val Grady [facility] HEMOGLOBIN AND HEMATOCRIT 2020-10-18 03:34:00 Val Grady [facility] XR FOOT RIGHT 3 VIEW 2020-10-17 20:13:00 Lidya Cavanaugh [facility] HEMOGLOBIN AND HEMATOCRIT 2020-10-17 16:24:00 Val Grady [facility] REPORT OF PROCEDURE - 2020-10-17 09:07:[address] [facility] ENDOSCOPY URL [facility] TISSUE EXAM 2020-10-17 08:44:00 [facility] COLONOSCOPY,BIOPSY 2020-10-17 08:17:00 [place] [facility] HEMOGLOBIN AND HEMATOCRIT 2020-10-17 03:48:00 Val Grady [facility] BASIC METABOLIC PANEL (7) 2020-10-17 03:47:00 Val Grady [facility] HEMOGLOBIN AND HEMATOCRIT 2020-10-16 13:44:00 Val Grady [facility] XR CHEST 1 VIEW 2020-10-16 12:09:00 Kim Henao Critical access hospital/BEDSIDE [facility] BASIC METABOLIC PANEL (7) 2020-10-16 02:31:00 Val Grady [facility] MAGNESIUM 2020-10-16 02:31:00 Polo Swanson [facility] HEMOGLOBIN AND HEMATOCRIT 2020-10-15 23:30:00 Val Grady [facility] SARS-COV2/RT-PCR ([facility] & 2020-10-15 17:46:[address] [facility] REF LABS) [facility] HEMOGLOBIN AND HEMATOCRIT 2020-10-15 16:59:00 Val Grady [facility] HEMOGLOBIN AND HEMATOCRIT 2020-10-15 10:40:00 Val Grady [facility] VANCOMYCIN LEVEL, TROUGH 2020-10-15 05:40:00 Ozzie Urrutia [facility] CBC W/PLT COUNT & AUTO 2020-10-15 03:59:00 RikiisundElkin [facility] BASIC METABOLIC PANEL (7) 2020-10-15 03:59:[address] [facility] CBC (HEMOGRAM ONLY) 2020-10-14 22:10:00 WoodyOzzie [facility] BASIC METABOLIC PANEL (7) 2020-10-14 22:10:00 WoodyOzzie CH [facility] PROTHROMBIN TIME/INR 2020-10-14 22:10:00 Woody [facility] TYPE AND SCREEN, AUTOMATED 2020-10-14 22:10:00 WoodyOzzie [facility] ECG 12-LEAD 2020-10-14 16:35:17 Val Grady [facility] HC ARTERIAL DOPPLER LEG 2020-10-14 15:41:00 Rudy Anaya [facility] VENOGRAM 2020-10-14 10:45:00 Hossein Iniguez [facility] PROTHROMBIN TIME/INR 2020-10-14 10:15:00 Renetta Cardenas [facility] BASIC METABOLIC PANEL (7) 2020-10-14 07:31:00 Val Grady [facility] CBC W/PLT COUNT & AUTO 2020-10-14 07:31:00 Val Grady [facility] LACTIC ACID, VENOUS 2020-10-14 07:31:00 Val Grady [facility] APTT 2020-10-14 05:31:00 [facility] APTT 2020-10-13 22:26:00 [facility] CTA CHEST 2020-10-13 19:54:00 [facility] CT/CTA AAA AND RUNOFF 2020-10-13 19:54:[address] [facility] APTT 2020-10-13 16:21:00 [facility] HEMOGLOBIN AND HEMATOCRIT 2020-10-13 14:34:00 Val Grady [facility] LACTIC ACID, VENOUS 2020-10-13 14:34:00 Val Grady [facility] 2D ECHO W/ DOPPLER 2020-10-13 10:57:00 Sony [facility] (CW/PW/COLOR) [facility] APTT 2020-10-13 08:39:00 [facility] HEPATIC FUNCTION PANEL 2020-10-13 06:29:00 [facility] MAGNESIUM 2020-10-13 06:29:00 [facility] PHOSPHORUS 2020-10-13 06:29:00 [facility] PROTHROMBIN TIME/INR 2020-10-13 06:29:00 [facility] CBC W/PLT COUNT & AUTO 2020-10-13 06:29:00 [facility] LACTIC ACID, VENOUS 2020-10-13 06:29:00 [facility] APTT 2020-10-13 06:29:[address] [facility] B-TYPE NATRIURETIC FACTOR 2020-10-13 01:25:00 [facility] (BNP) [facility] LACTIC ACID, VENOUS 2020-10-13 01:25:00 [facility] BASIC METABOLIC PANEL (7) 2020-10-13 01:25:00 [facility] PROCALCITONIN 2020-10-13 01:25:00 [facility] BLOOD GAS, VENOUS 2020-10-13 01:25:00 [facility] CBC (HEMOGRAM ONLY) 2020-10-12 23:42:00 [facility]/INR 2020-10-12 23:42:00 [facility]ID, VENOUS 2020-10-12 23:42:00 [facility] APTT 2020-10-12 23:42:00 [facility] TYPE AND SCREEN, AUTOMATED 2020-10-12 23:42:[address] [facility] ECG 12-LEAD 2020-10-12 23:38:[address] [facility] ARRYTHMIA IMPLANT REPORT - 2020-10-12 00:00:00 Provider, [facility] CARDIAC CATH REPORT - SCAN 2020-10-12 00:00:00 Provider, [facility] REPORT OF PROCEDURE - 2020-10-12 00:00:00 Provider, [facility] ENDOSCOPY [facility] ECG 12-LEAD 2020-08-08 07:21:06 Pedro Wallace [facility] BASIC METABOLIC PANEL (7) 2020-08-08 04:21:00 [facility] CALCIUM, IONIZED 2020-08-08 04:21:00 Weston [facility] PHOSPHORUS 2020-08-08 04:21:00 [facility] CBC W/PLT COUNT & AUTO 2020-08-08 04:21:00 Sonny Ontiveros [facility] MAGNESIUM 2020-08-08 04:21:00 Weston [facility] ECG 12-LEAD 2020-08-07 06:36:48 Abdelrahman Wallacesaint [facility] road[facility]rett [facility] BASIC METABOLIC PANEL (7) 2020-08-07 05:32:00 [facility] CALCIUM, IONIZED 2020-08-07 05:32:00 Weston [facility] MAGNESIUM 2020-08-07 05:32:00 Weston [facility] CBC W/PLT COUNT & AUTO 2020-08-07 05:32:00 Sonny Ontiveros [facility] PHOSPHORUS 2020-08-07 05:32:00 [facility] 12-LEAD 2020-08-06 06:14:33 Pedro Wallace [facility] BASIC METABOLIC PANEL (7) 2020-08-06 04:57:00 [facility] CALCIUM, IONIZED 2020-08-06 04:57:00 Weston [facility] PHOSPHORUS 2020-08-06 04:57:00 Weston [facility] CBC W/PLT COUNT & AUTO 2020-08-06 04:57:00 Sonny Ontiveros [facility] MAGNESIUM 2020-08-06 04:57:00 [facility] HC ARTERIAL(ELIA W 2020-08-05 16:00:00 Tangela Nance [facility] DOPPLER[facility]ONLY [facility] HC ARTERIAL DOPPLER LEG 2020-08-05 15:30:00 Tangela Nance [facility] NM PARATHYROID SCAN WITH 2020-08-05 14:48:00 [facility] - SPECT[facility]CT Medical [facility] SARS-COV2/RT-PCR ([facility] & 2020-08-05 05:49:00 Ildefonso Richards [facility] - REF LABS) [facility] TROPONIN I 2020-08-05 05:49:00 Dick Glover [facility] ECG 12-LEAD 2020-08-05 02:27:49 Unknown, Hl7 [facility] ECG 12-LEAD 2020-08-05 02:27:01 Unknown, 7 [facility] XR CHEST 1 VIEW 2020-08-05 02:00:[address] [facility] PORTABLE/BEDSIDE Medical Center BASIC METABOLIC PANEL (7) 2020-08-05 01:51:00 [facility] CALCIUM, IONIZED 2020-08-05 01:51:00 [facility] PHOSPHORUS 2020-08-05 01:51:00 [facility] CBC W/PLT COUNT & AUTO 2020-08-05 01:51:00 Sonny Ontiveros [facility] MAGNESIUM 2020-08-05 01:51:00 [facility] TROPONIN I 2020-08-05 01:51:00 Dick Glover [facility] ECG 12-LEAD 2020-08-04 06:10:24 Pedro Wallace [facility] BASIC METABOLIC PANEL (7) 2020-08-04 04:37:00 [facility] CALCIUM, IONIZED 2020-08-04 04:37:00 Sonny Ontiveros [facility] PHOSPHORUS 2020-08-04 04:37:00 Weston [facility] CBC W/PLT COUNT & AUTO 2020-08-04 04:37:00 Sonny Ontiveros [facility] MAGNESIUM 2020-08-04 04:37:00 Weston [facility] C. DIFFICILE GDH TOXIN 2020-08-03 15:43:00 Sonny Ontiveros [facility] ECG 12-LEAD 2020-08-03 06:20:50 Pedro Wallace [facility] BASIC METABOLIC PANEL (7) 2020-08-03 04:39:00 [facility] CALCIUM, IONIZED 2020-08-03 04:39:00 [facility] PHOSPHORUS 2020-08-03 04:39:00 [facility] CBC W/PLT COUNT & AUTO 2020-08-03 04:39:00 Sonny Ontiveros [facility] MAGNESIUM 2020-08-03 04:39:00 Wetson [facility] L CATH & PCI 2020-08-02 10:28:00 Trey Ramos [facility] CBC (HEMOGRAM ONLY) 2020-08-02 04:20:00 [facility] BASIC METABOLIC PANEL (7) 2020-08-02 04:20:00 [facility] PHOSPHORUS 2020-08-02 04:20:00 [facility] MAGNESIUM 2020-08-02 04:20:00 [facility] PTH, INTACT 2020-08-02 04:20:00 [facility] CALCIUM, IONIZED 2020-08-02 04:20:00 [facility] 12-LEAD 2020-08-01 15:47:39 Osman Elie Isidro [facility] TRANSESOPHAGEAL ECHO 2020-08-01 14:51:29 Husseinzoila Trey [facility] CARDIOVERSION 2020-08-01 10:56:42 Hussein [facility] CBC (HEMOGRAM ONLY) 2020-08-01 05:32:00 [facility] BASIC METABOLIC PANEL (7) 2020-08-01 05:32:00 [facility] PHOSPHORUS 2020-08-01 05:32:00 [facility] MAGNESIUM 2020-08-01 05:32:00 [facility] CALCIUM, IONIZED 2020-08-01 05:32:00 [facility] CBC (HEMOGRAM ONLY) 2020-07-31 05:42:00 [facility] BASIC METABOLIC PANEL (7) 2020-07-31 05:42:00 [facility] PHOSPHORUS 2020-07-31 05:42:00 [facility] MAGNESIUM 2020-07-31 05:42:00 [facility] CALCIUM, IONIZED 2020-07-31 05:42:00 [facility] (HEMOGRAM ONLY) 2020-07-30 04:28:00 [facility] BASIC METABOLIC PANEL (7) 2020-07-30 04:28:00 [facility] PHOSPHORUS 2020-07-30 04:28:00 [facility] MAGNESIUM 2020-07-30 04:28:00 Tom, [facility] CALCIUM, IONIZED 2020-07-30 04:28:00 Weston [facility] CT CHEST WITHOUT IV 2020-07-29 22:05:00 Sonny Ontiveros [facility] CONTRAST [facility] IRON, TIBC, % SAT. 2020-07-29 18:05:00 [facility] center[facility] (WITHOUT FERRITIN) [facility] r 2D ECHO W/ DOPPLER 2020-07-29 08:48:27 Tom [facility] (CW/PW/COLOR) [facility] TSH/FREE T4 IF INDICATED 2020-07-29 04:20:00 Ildefonso Richards [facility] HEMOGLOBIN A1C 2020-07-29 04:20:00 Susie [facility] LIPID PANEL 2020-07-29 04:20:00 [facility]onso [facility] CBC (HEMOGRAM ONLY) 2020-07-29 04:20:00 [facility] BASIC METABOLIC PANEL (7) 2020-07-29 04:20:00 [facility] PHOSPHORUS 2020-07-29 04:20:00 [facility]UM 2020-07-29 04:20:00 [facility] PROCALCITONIN 2020-07-29 04:20:00 [facility] VITAMIN B12 AND FOLATE 2020-07-29 04:20:00 Ildefonso Richards [facility] T4, FREE 2020-07-29 04:20:00 Ildefonso Richards [facility] BLOOD CULTURE 2020-07-28 21:16:00 Ildefonso Richards [facility] BLOOD CULTURE 2020-07-28 21:15:00 Susie Ildefonsomercedez [facility] ECG 12-LEAD 2020-07-28 20:54:37 Ildefonso Richards [facility] SARS-COV2/RT-PCR ([facility] & 2020-07-28 20:36:00 Ildefonso Richards [facility] - REF LABS[facility] CBC W/PLT COUNT & AUTO 2020-07-28 20:33:[address] Richards C [facility] - DIFFERENTIAL [facility] COMPREHENSIVE METABOLIC 2020-07-28 20:33:[address] [facility] - PANEL [facility] B-TYPE NATRIURETIC FACTOR 2020-07-28 20:33:00 Ildefonso Richards [facility] - (BNP) [facility] Center MAGNESIUM 2020-07-28 20:33:00 Ildefonso Richards [facility] XR CHEST 1 VIEW 2020-07-28 19:50:00 Ildefonso Richards [facility] - PORTABLE/BEDSIDE Medical Center VASCULAR DIAGRAM -SCAN 2020-07-28 00:00:00 Provider, Default [facility] St kes Scanning [facility] CARDIAC CATH REPORT - SCAN 2020-07-28 00:00:00 [facility], [facility] Plan of Care Planned Activity Planned Date Details Comments Source Future Scheduled 2030-10-[address] [facility] - Test 00:00:00 [facility] colon (procedure) [code = 239046773] Future Scheduled 2015-07-[address] [facility] - Test 00:00:00 WELLNESS (YEAR 2 or Medical Center FIRST YEAR if no IPPE) [code = MEDICARE ANNUAL WELLNESS (YEAR 2 or FIRST YEAR if no IPPE)] Future Scheduled 2014 PNEUMOCOCCAL 65+ YRS [facility] - Test 00:00:00 (1 of 1 - Medical Center [id number]) [code = PNEUMOCOCCAL 65+ YRS (1 of 1 - [id number])] Future Scheduled 1999 SHINGLES VACCINES (1 [...] [code = HEPATITIS C Medical Center SCREENING] Encounters Start End Encounter Admission Attending Care Care Encounter Source Date/Time Date/Time Type Type Clinicians Facility Department ID 2020-10-27 2020-10-27 [id number] 2020-10-18 2020-10-18 Out[facility] [id number] [facility] 2020-10-14 2020-10-14 [facility] [id number] [facility] 2020-10-11 2020-10-11 [facility] [id number] 2020-10-10 2020-10-10 [facility] [id number] [facility] 2020-09-21 2020-09-21 Outpatient [facility] [id number] [facility] 2020-09-19 2020-09-19 [id number] 2020-09-16 2020-09-16 Outpatient [facility] [id number] [facility] 2020-09-08 2020-09-08 Outpatient [facility] [id number] [facility] 2020-09-08 2020-09-08 Outpatient [facility]LML[facility] [id number] [facility] 2020-09-06 2020-09-06 Outpatient [facility]LMLC [facility] [id number] [facility] 2020-09-06 2020-09-06 Outpatient [facility] [id number] [facility] 2020-08-23 2020-08-23 Outpatient [facility]LML[facility] [id number] [facility] 2020-07-31 2020-07-31 Outpatient [facility]LMLC [facility] [id number] [facility] 2020-05-27 2020-05-27 Outpatient [facility]LMLC [facility] [id number] [facility] 2020-05-25 2020-05-25 Outpatient [facility]LMLC [facility] [id number] [facility] 2020-05-25 2020-05-25 Outpatient [facility]LMLC [facility] [id number] [facility] 2020-05-18 2020-05-18 Outpatient [facility]LML[facility] [id number] [facility] 2020-04-26 2020-04-26 [facility] [id number] [address] 09:52:00 09:52:00 t PalindromX s - Drive [facility] Family [facility] l Medicine Outpati ent Clinics 2020-02-23 2020-02-23 [facility] [id number] 14:30:00 14:30:00 t PalindromX s - Drive [facility] Family [facility] l Medicine Outpati ent Clinics 2019-12-30 2019-12-30 [facility] [id number] 10:40:00 10:40:00 [facility] s - Road [facility] Medicine l Medicine Outpati ent Clinics 2019-12-24 2019-12-24 [facility] [id number] 16:41:00 16:41:00 t Elma Smarty Ants s - Drive [facility] Medicine l Medicine Outpati ent Clinics 2019-11-23 2019-11-23 [facility] [id number] 14:00:00 14:00:00 t Elma Smarty Ants s - Drive [facility] Medicine l Medicine Outpati ent Clinics 2019-11-05 2019-11-05 [facility] [id number] 14:59:00 14:59:00 t Elma Smarty Ants s - Drive [facility] l Medicine Outpati ent Clinics 2019-10-12 2019-10-12 [facility] [id number] 11:27:00 11:27:00 t Elma Smarty Ants s - Drive [facility] Medicine Medicine Outpati ent Clinics 2019-10-02 2019-10-02 [facility] [id number] 09:03:00 09:03:00 t Elma Smarty Ants s - Drive [facility] Medicine l Medicine Outpati ent Clinics 2019-09-28 2019-09-28 [facility] [id number] 13:16:00 13:16:00 t PalindromX s - Drive [facility] l Medicine Outpati ent Clinics 2019-08-31 2019-08-31 [facility] [id number] 14:00:00 14:00:00 t Elma Smarty Ants s - Drive [facility] Medicine Medicine Outpati ent Clinics 2019-08-24 2019-08-24 [facility] [id number] 11:45:00 11:45:00 t Elma Smarty Ants s - Drive [facility] l Medicine Outpati ent Clinics 2019 2019 [facility] [id number] 11:00:00 11:00:00 t Elma Smarty Ants s - Drive [facility] Medicine Outpati ent Clinics 2019-07-06 2019-07-06 [facility] [id number] 13:59:00 13:59:[address] Luke s - Drive [facility] Medicine l Medicine Outpati ent Clinics 2019-06-04 2019-06-04 [facility] [id number] 14:23:00 14:23:[address] Luke s - Drive [facility] Medicine l Medicine Outpati ent Clinics 2019-05-18 2019-05-18 Outpatient [facility] [id number] [facility] 09:47:00 09:47:[address] [place] - Drive [facility] Medicine l Medicine Outpati ent Clinics 2019-05-04 2019-05-04 [facility] [id number] [facility] 13:52:00 13:52:[address] [place] - Drive [facility] l Medicine Outpati ent Clinics 2019-04-29 2019-04-29 [facility] [id number] [facility] 14:30:00 14:30:[address] [place] - Drive [facility] Medicine Medicine Outpati ent Clinics 2019-04-27 2019-04-27 [facility] [id number] 10:20:00 10:20:[address] [place] - Drive [facility] Medicine l Medicine Outpati ent Clinics 2019-02-06 2019-02-06 [facility] [id number] [facility] 08:31:00 08:31:[address] [place] - Drive [facility] Medicine l Medicine Outpati ent Clinics 2019-01-02 2019-01-02 [facility] [id number] 11:08:00 11:08:[address] [place] - Drive [facility] Medicine l Medicine Outpati ent Clinics 2018-12-23 2018-12-23 [facility] [id number] 15:00:00 15:00:[address] [place] - Drive [facility] Medicine l Medicine Outpati ent Clinics 2018-12-08 2018-12-08 [facility] [id number] [address] 13:58:00 13:58:[address] [place] - Drive [facility] l Medicine Outpati ent Clinics 2018-12-04 2018-12-04 [facility] [id number] 11:57:00 11:57:[address] [place] - Drive [facility] Medicine Outpati ent Clinics 2018-12-01 2018-12-01 [facility] [id number] 14:49:00 14:49:[address] [place] - Drive [facility] Medicine Outpati ent Clinics 2018-10-30 2018-10-30 [facility] [id number] [facility] 11:15:00 11:15:00 t Elma [address] Luke [facility] - Drive [facility] Medicine Outpati ent Clinics 2018-10-28 2018-10-28 [facility] [id number] 16:53:00 16:53:00 t Elma [address] [place] [place] [facility] - Drive [facility] Medicine Outpati ent Clinics 2018-10-24 2018-10-24 [facility] [id number] 16:00:00 16:00:00 t Elma [address] [place] [place] [facility] - Drive [facility] Medicine Outpati ent Clinics 2018-09-17 2018-09-17 [facility] [id number] 13:45:00 13:45:00 t [address]ma [address] [place] [place] - Drive [facility] Medicine Outpati ent Clinics 2018-03-18 2018-03-18 [facility] [id number] 10:15:00 10:15:00 t Elma Smarty Ants s - Drive [facility] Outpati ent Clinics Results Test Description Test Time Test Comments Results Result Comments Source SARS-CoV2/RT-PCR (Asymptomatic ONLY) 2020-11-08 02:26:00 Test Item Value Reference Range Interpretation Comme nts SARS-COV2/RT-PCR (test code = Negative Not Detected, 21254-7) Negative, See external report for linked test SARS-COV-2 PERFORMING LAB [facility] TEJA (test code = 16357-0) JERONIMO (test code = JERONIMO) Negative result for this test determines that [...] the Act. Testing was performed using the Claire SARS-CoV-2 assay. Fact Sheet for Healthcare Providers:https://www.Yellow Pagessylvia funez.claire/cali/VL_WRIT-OyQ-6_A CP_Fact_Sheet_51-400344.pdf Fact Sheet for Healthcare Patients:https://www.Yellow Pagesula r.claire/cali/DG_GWPS-TwE-9_Go tient_Fact_Sheet_EN_51-082657 R3.pdf Performing Laboratory:[place] [address] [place] [address] [facility])2020-11-08 02:26:00 Test Item Value Reference Range Interpretation Comments SARS-COV2/RT-PCR (test Negative Not Detected, Negative, code = 3735655) See external report for linked test SARS-COV-2 PERFORMING LAB [facility] LEZAMA (test code = 2956069) Negative result for this test determines that [...] the Claire SARS-CoV-2 assay.Fact Sheet for Healthcare Providers:https://www.Sumoing.claire/cali/ AM_SFRQ-BvX-0_BKQ_Lqqh_Sobih_60-258503.pdfFact Sheet for Healthcare Patients:https://www.Sumoing.ab yen/cali/CH_NTTJ-UuU-2_Azlbbkq_Rzza_Iiuau_FF_76-503461Y4.pdfPerforming Laboratory:[facility] [place] [address] Basic Metabolic [id number] 06:37:00 Test Item Value Reference Range Interpretation Comments Sodium (test code = 139 meq/L 089-446 0487-2) Potassium (test code = 4.0 meq/L 3.5-5.1 2823-3) Chloride (test code = 95 meq/L 98-107 L 2075-0) CO2 (test code = 36 meq/L 22-29 H 8-9) BUN (test code = 24 mg/dL 7-21 H 3094-0) Creatinine (test code 0.75 mg/dL 0.57-1.25 = 2160-0) Glucose (test code = 99 mg/dL 70-105 2345-7) Calcium (test code = 8.7 mg/dL 8.4-10.2 58315-2) EGFR (test code = 103 mL/min/1.73 [place] [address]-9) NOT ACCURATE CREATININE CLEARANCE IN PREDICTING GLOMERULAR FILTRATION RATE . ESTIMATED GFR I S NOT APPLICABLE FOR DIALYSIS PATIENTS. JERONIMO (test code = JERONIMO) Costumed Character ID - EDASI Lab Interpretation Abnormal (test code = 53524-6) [facility] 06[facility]37[facility]00 Test Item Value Reference Range Interpretation Comments Magnesium (test code = 1.8 mg/dL 1.6-2.6 85030-0) JERONIMO (test code = JERONIMO) Costumed Character ID - EDASI Lab Interpretation (test Normal code = 99051-0) [facility] [id number] 06:37:00 Test Item Value Reference Range Interpretation Comments SODIUM (BEAKER) 139 meq/L 136-145 (test code = 381) POTASSIUM (BEAKER) 4.0 meq/L 3.5-5.1 (test code = 379) CHLORIDE (BEAKER) 95 meq/L 98-107 L (test code = 382) CO2 (BEAKER) (test 36 meq/L 22-29 H code = 355) BLOOD UREA NITROGEN 24 mg/dL 7-21 H (BEAKER) (test code = 354) CREATININE (BEAKER) 0.75 mg/dL 0.57-1.25 (test code = 358) GLUCOSE RANDOM 99 mg/dL 70-105 (BEAKER) (test code = 652) CALCIUM (BEAKER) 8.7 mg/dL 8.4-10.2 (test code = 697) EGFR (BEAKER) (test 103 mL/min/1.73 ESTIM ATED GFR IS code = 1092) sq m NOT ACCURATE CREATININE CLEARANCE IN PREDICTING GLOMERULAR FILTRATION RATE . ESTIMATED GFR I S NOT APPLICABLE FOR DIALYSIS PATIEN TS. Costumed Character ID - [id number] 06:37:00 Test Item Value Reference Range Interpretation Comments MAGNESIUM (BEAKER) (test code = 1.8 mg/dL 1.6-2.6 627) Costumed Character ID - EDASIBASIC METABOLIC [id number] 06:45:00 Test Item Value Reference Range Interpretation Comments SODIUM (BEAKER) 138 meq/L 136-145 (test code = 381) POTASSIUM (BEAKER) 4.1 meq/L 3.5-5.1 (test code = 379) CHLORIDE (BEAKER) 97 meq/L 98-107 L (test code = 382) CO2 (BEAKER) (test 32 meq/L 22-29 H code = 355) BLOOD UREA NITROGEN 23 mg/dL 7-21 H (BEAKER) (test code = 354) CREATININE (BEAKER) 0.73 mg/dL 0.57-1.25 (test code = 358) GLUCOSE RANDOM 91 mg/dL 70-105 (BEAKER) (test code = 652) CALCIUM (BEAKER) 8.4 mg/dL 8.4-10.2 (test code = 697) EGFR (BEAKER) (test 106 mL/min/1.73 ESTIM ATED GFR IS code = 1092) sq m NOT ACCURATE CREATININE CLEARANCE IN PREDICTING GLOMERULAR FILTRATION RATE . ESTIMATED GFR I S NOT APPLICABLE FOR DIALYSIS PATIEN TS. Costumed Character ID - [id number] 06:45:00 Test Item Value Reference Range Interpretation Comments MAGNESIUM (BEAKER) (test code = 1.7 mg/dL 1.6-2.6 627) Costumed Character ID - EDASIPOC-Glucose [id number] 13:00:00 Test Item Value Reference Range Interpretation Comments POC-Glucose Meter (test 170 mg/dL 70-110 H : TE STED AT [facility] code = 1538) [address] [facility], [address]70 30: Costumed Character/Techni kendra ID = [id number] for Shruti Guerline sarbjit Lab Interpretation (test Abnormal code = 56751-6) [facility] Center[facility]CT[facility]GLUCOSE [id number] 13:00:00 Test Item Value Reference Range Interpretation Comments POC-GLUCOSE METER 170 mg/dL 70-110 H : [facility] (BEAKER) (test code = [place]N [place], 1538) [address]: Costumed Character/Techni kendra ID = [id number] for Guerline Bahena sarbjit BASIC METABOLIC [id number] 06:33:00 Test Item Value Reference Range Interpretation Comments SODIUM (BEAKER) 142 meq/L 136-145 (test code = 381) POTASSIUM (BEAKER) 4.5 meq/L 3.5-5.1 (test code = 379) CHLORIDE (BEAKER) 98 meq/L 98-107 (test code = 382) CO2 (BEAKER) (test 35 meq/L 22-29 H code = 355) BLOOD UREA NITROGEN 23 mg/dL 7-21 H (BEAKER) (test code = 354) CREATININE (BEAKER) 0.89 mg/dL 0.57-1.25 (test code = 358) GLUCOSE RANDOM 108 mg/dL 70-105 H (BEAKER) (test code = 652) CALCIUM (BEAKER) 8.4 mg/dL 8.4-10.2 (test code = 697) EGFR (BEAKER) (test 84 mL/min/1.73 ESTIMA TYRA GFR IS code = 1092) sq m NOT ACCURATE CREATININE CLEARANCE IN PREDICTING GLOMERULAR FILTRATION RATE . ESTIMATED GFR I S NOT APPLICABLE FOR DIALYSIS PATIEN TS. Costumed Character ID - [id number] 06:33:00 Test Item Value Reference Range Interpretation Comments MAGNESIUM (BEAKER) (test code = 1.7 mg/dL 1.6-2.6 627) Costumed Character ID - EDASICBC with platelet count + automated [id number] 05:56:00 Test Item Value Reference Range Interpretation Comments WBC (test code = 6690-2) 4.2 See_Comment [A utomated message] The system [employer] generated this result transmitted ref erence range: 3.5 - 10 .5 K/L. The refe rence range was not u sed to interpret this result as normal/abnor mal. RBC (test code = 789-8) 3.15 See_Comment L [Au tomated message] The system [employer] generated this result transmitted ref erence range: 4.63 - 6 .08 M/L. The refe rence range was not u sed to interpret this result as normal/abnor mal. MCHC (test code = 786-4) 31.5 See_Comment L [A utomated message] The system [employer] generated this result transmitted ref erence range: 32.3 - 3 6.5 GM/DL. The refe rence range was not u sed to interpret this result as normal/abnor mal. Hematocrit (test code = 31.4 % 40.1-51 L 4544-3) MCV (test code = 787-2) 99.7 fL 79-92.2 H MCH (test code = 785-6) 31.4 pg 25.7-32.2 RDW (test code = 788-0) 13.4 % 11.6-14.4 Platelets (test code = 171 See_Comment [Aut omated message] 777-3) The system [employer] generated this result transmitted ref erence range: 150 - 45 0 K/CU MM. The referen ce range was not u sed to interpret this result as normal/abnor mal. MPV (test code = 10.4 fL 9.4-12.4 07155-8) nRBC (test code = 413) 0 See_Comment [Aut omated message] The system [employer] generated this result transmitted ref erence range: 0 - 0 /1 00 WBC. The refere nce range was not u sed to interpret this result as normal/abnor mal. % Neutros (test code = 82 % 429) % Lymphs (test code = 8 % 430) % Monos (test code = 10 % 431) % Eos (test code = 432) 0 % % Baso (test code = 437) 0 % # Neutros (test code = 3.48 See_Comment [Aut omated message] 670) The system [employer] generated this result transmitted ref erence range: 1.78 - 5 .38 K/L. The refe rence range was not u sed to interpret this result as normal/abnor mal. # Lymphs (test code = 0.34 See_Comment L [Auto mated message] 414) The system [employer] generated this result transmitted ref erence range: 1.32 - 3 .57 K/L. The refe rence range was not u sed to interpret this result as normal/abnor mal. # Monos (test code = 0.41 See_Comment [Autom ated message] 415) The system [employer] generated this result transmitted ref erence range: 0.30 - 0 .82 K/L. The refe rence range was not u sed to interpret this result as normal/abnor mal. # Eos (test code = 416) 0.00 See_Comment L [Au tomated message] The system [employer] generated this result transmitted ref erence range: 0.04 - 0 .54 K/L. The refe rence range was not u sed to interpret this result as normal/abnor mal. # Baso (test code = 417) 0.00 See_Comment L [A utomated message] The system [employer] generated this result transmitted ref erence range: 0.01 - 0 .08 K/L. The refe rence range was not u sed to interpret this result as normal/abnor mal. Immature 0 % 0-1 Granulocytes-Relative (test code = 2801) Lab Interpretation (test Abnormal code = 83427-5) [facility] W/PLT COUNT & AUTO [id number] 05:56:00 Test Item Value Reference Range Interpretation Comments WHITE BLOOD CELL COUNT (BEAKER) 4.2 K/ L 3.5-10.5 (test code = 775) RED BLOOD CELL COUNT (BEAKER) 3.15 M/ L 4.63-6.08 L (test code = 761) HEMOGLOBIN (BEAKER) (test code = 9.9 GM/DL 13.7-17.5 L 410) HEMATOCRIT (BEAKER) (test code = 31.4 % 40.1-51.0 L 411) MEAN CORPUSCULAR VOLUME (BEAKER) 99.7 fL 79.0-92.2 H (test code = 753) MEAN CORPUSCULAR HEMOGLOBIN 31.4 pg 25.7-32.2 (BEAKER) (test code = 751) MEAN CORPUSCULAR HEMOGLOBIN CONC 31.5 GM/DL 32.3-36.5 L (BEAKER) (test code = 752) RED CELL DISTRIBUTION WIDTH 13.4 % 11.6-14.4 (BEAKER) (test code = 412) PLATELET COUNT (BEAKER) (test 171 K/CU MM 150-450 code = 756) MEAN [...] (test code = 437) NEUTROPHILS ABSOLUTE COUNT 3.48 K/ L 1.78-5.38 (BEAKER) (test code = 670) LYMPHOCYTES ABSOLUTE COUNT 0.34 K/ L 1.32-3.57 L (BEAKER) (test code = 414) MONOCYTES ABSOLUTE COUNT (BEAKER) 0.41 K/ L 0.30-0.82 (test code = 415) EOSINOPHILS ABSOLUTE COUNT 0.00 K/ L 0.04-0.54 L (BEAKER) (test code = 416) BASOPHILS ABSOLUTE COUNT (BEAKER) 0.00 K/ L 0.01-0.08 L (test code = 417) IMMATURE GRANULOCYTES-RELATIVE 0 % 0-1 PERCENT (BEAKER) (test code = 2801) BASIC METABOLIC [id number] 05:09:00 Test Item Value Reference Range Interpretation Comments SODIUM (BEAKER) 142 meq/L 136-145 (test code = 381) POTASSIUM (BEAKER) 3.9 meq/L 3.5-5.1 (test code = 379) CHLORIDE (BEAKER) 97 meq/L 98-107 L (test code = 382) CO2 (BEAKER) (test 35 meq/L 22-29 H code = 355) BLOOD UREA NITROGEN 23 mg/dL 7-21 H (BEAKER) (test code = 354) CREATININE (BEAKER) 0.75 mg/dL 0.57-1.25 (test code = 358) GLUCOSE RANDOM 84 mg/dL 70-105 (BEAKER) (test code = 652) CALCIUM (BEAKER) 8.4 mg/dL 8.4-10.2 (test code = 697) EGFR (BEAKER) (test 103 mL/min/1.73 ESTIM ATED GFR IS code = 1092) sq m NOT ACCURATE CREATININE CLEARANCE IN PREDICTING GLOMERULAR FILTRATION RATE . ESTIMATED GFR I S NOT APPLICABLE FOR DIALYSIS PATIEN TS. Costumed Character ID - DEQUAN [id number] 05:09:00 Test Item Value Reference Range Interpretation Comments MAGNESIUM (BEAKER) (test code = 1.8 mg/dL 1.6-2.6 627) Costumed Character ID - DEQUAN [facility] W/PLT COUNT & AUTO [id number] 04:46:00 Test Item Value Reference Range Interpretation Comments WHITE BLOOD CELL COUNT (BEAKER) 5.8 K/ L 3.5-10.5 (test code = 775) RED BLOOD CELL COUNT (BEAKER) 3.50 M/ L 4.63-6.08 L (test code = 761) HEMOGLOBIN (BEAKER) (test code = 11.1 GM/DL 13.7-17.5 L 410) HEMATOCRIT (BEAKER) (test code = 34.5 % 40.1-51.0 L 411) MEAN CORPUSCULAR VOLUME (BEAKER) 98.6 fL 79.0-92.2 H (test code = 753) MEAN CORPUSCULAR HEMOGLOBIN 31.7 pg 25.7-32.2 (BEAKER) (test code = 751) MEAN CORPUSCULAR HEMOGLOBIN CONC 32.2 GM/DL 32.3-36.5 L (BEAKER) (test code = 752) RED CELL DISTRIBUTION WIDTH 13.3 % 11.6-14.4 (BEAKER) (test code = 412) PLATELET COUNT (BEAKER) (test 197 K/CU MM 150-450 code = 756) MEAN PLATELET VOLUME (BEAKER) 10.7 fL 9.4-12.4 (test code = 754) NUCLEATED RED BLOOD CELLS 0 /100 WBC 0-0 (BEAKER) (test code = 413) NEUTROPHILS RELATIVE PERCENT 82 % (BEAKER) (test code = 429) LYMPHOCYTES RELATIVE PERCENT 6 % (BEAKER) (test code = 430) MONOCYTES RELATIVE PERCENT 11 % (BEAKER) (test code = 431) EOSINOPHILS RELATIVE PERCENT 0 % (BEAKER) (test code = 432) BASOPHILS RELATIVE PERCENT 0 % (BEAKER) (test code = 437) NEUTROPHILS ABSOLUTE COUNT 4.80 K/ L 1.78-5.38 (BEAKER) (test code = 670) LYMPHOCYTES ABSOLUTE COUNT 0.36 K/ L 1.32-3.57 L (BEAKER) (test code = 414) MONOCYTES ABSOLUTE COUNT (BEAKER) 0.61 K/ L 0.30-0.82 (test code = 415) EOSINOPHILS ABSOLUTE COUNT 0.01 K/ L 0.04-0.54 L (BEAKER) (test code = 416) BASOPHILS ABSOLUTE COUNT (BEAKER) 0.00 K/ L 0.01-0.08 L (test code = 417) IMMATURE GRANULOCYTES-RELATIVE 1 % 0-1 PERCENT (BEAKER) (test code = 2801) BASIC METABOLIC [id number] 04:58:00 Test Item Value Reference Range Interpretation Comments SODIUM (BEAKER) 143 meq/L 136-145 (test code = 381) POTASSIUM (BEAKER) 4.9 meq/L 3.5-5.1 (test code = 379) CHLORIDE (BEAKER) 99 meq/L 98-107 (test code = 382) CO2 (BEAKER) (test 36 meq/L 22-29 H code = 355) BLOOD UREA NITROGEN 23 mg/dL 7-21 H (BEAKER) (test code = 354) CREATININE (BEAKER) 0.72 mg/dL 0.57-1.25 (test code = 358) GLUCOSE RANDOM 109 mg/dL 70-105 H (BEAKER) (test code = 652) CALCIUM (BEAKER) 8.1 mg/dL 8.4-10.2 L (test code = 697) EGFR (BEAKER) (test 108 mL/min/1.73 ESTIM ATED GFR IS code = 1092) sq m NOT ACCURATE CREATININE CLEARANCE IN PREDICTING GLOMERULAR FILTRATION RATE . ESTIMATED GFR I S NOT APPLICABLE FOR DIALYSIS PATIEN TS. Costumed Character ID - CHARLENE [id number] 04:58:00 Test Item Value Reference Range Interpretation Comments MAGNESIUM (BEAKER) (test code = 1.9 mg/dL 1.6-2.6 627) Costumed Character ID - CHARLENE [facility] W/PLT COUNT & AUTO [id number] 04:39:00 Test Item Value Reference Range Interpretation Comments WHITE BLOOD CELL COUNT (BEAKER) 5.2 K/ L 3.5-10.5 (test code = 775) RED BLOOD CELL COUNT (BEAKER) 3.01 M/ L 4.63-6.08 L (test code = 761) HEMOGLOBIN (BEAKER) (test code = 9.5 GM/DL 13.7-17.5 L 410) HEMATOCRIT (BEAKER) (test code = 30.5 % 40.1-51.0 L 411) MEAN CORPUSCULAR VOLUME (BEAKER) 101.3 fL 79.0-92.2 H (test code = 753) MEAN CORPUSCULAR HEMOGLOBIN 31.6 pg 25.7-32.2 (BEAKER) (test code = 751) MEAN CORPUSCULAR HEMOGLOBIN CONC 31.1 GM/DL 32.3-36.5 L (BEAKER) (test code = 752) RED CELL DISTRIBUTION WIDTH 13.3 % 11.6-14.4 (BEAKER) (test code = 412) PLATELET COUNT (BEAKER) (test 164 K/CU MM 150-450 code = 756) MEAN PLATELET VOLUME (BEAKER) 10.3 fL 9.4-12.4 (test code = 754) NUCLEATED RED BLOOD CELLS 0 /100 WBC 0-0 (BEAKER) (test code = 413) NEUTROPHILS RELATIVE PERCENT 84 % (BEAKER) (test code = 429) LYMPHOCYTES RELATIVE PERCENT 7 % (BEAKER) (test code = 430) MONOCYTES RELATIVE PERCENT 9 % (BEAKER) (test code = 431) EOSINOPHILS RELATIVE PERCENT 0 % (BEAKER) (test code = 432) BASOPHILS RELATIVE PERCENT 0 % (BEAKER) (test code = 437) NEUTROPHILS ABSOLUTE COUNT 4.36 K/ L 1.78-5.38 (BEAKER) (test code = 670) LYMPHOCYTES ABSOLUTE COUNT 0.34 K/ L 1.32-3.57 L (BEAKER) (test code = 414) MONOCYTES ABSOLUTE COUNT (BEAKER) 0.48 K/ L 0.30-0.82 (test code = 415) EOSINOPHILS ABSOLUTE COUNT 0.01 K/ L 0.04-0.54 L (BEAKER) (test code = 416) BASOPHILS ABSOLUTE COUNT (BEAKER) 0.01 K/ L 0.01-0.08 (test code = 417) IMMATURE GRANULOCYTES-RELATIVE 0 % 0-1 PERCENT (BEAKER) (test code = 2801) Urine [id number] 09:06:00 Test Item Value Reference Range Interpretation Comments Result (test code = 50-59,000 col/mL A 6463-4) Tara albicans Lab Interpretation (test Abnormal code = 16310-7) [facility] [id number] 05:00:00 Test Item Value Reference Range Interpretation Comments SODIUM (BEAKER) 146 meq/L 136-145 H (test code = 381) POTASSIUM (BEAKER) 4.0 meq/L 3.5-5.1 (test code = 379) CHLORIDE (BEAKER) 104 meq/L 98-107 (test code = 382) CO2 (BEAKER) (test 32 meq/L 22-29 H code = 355) BLOOD UREA NITROGEN 18 mg/dL 7-21 (BEAKER) (test code = 354) CREATININE (BEAKER) 0.66 mg/dL 0.57-1.25 (test code = 358) GLUCOSE RANDOM 103 mg/dL 70-105 (BEAKER) (test code = 652) CALCIUM (BEAKER) 7.6 mg/dL 8.4-10.2 L (test code = 697) EGFR (BEAKER) (test 119 mL/min/1.73 ESTIM ATED GFR IS code = 1092) sq m NOT ACCURATE CREATININE CLEARANCE IN PREDICTING GLOMERULAR FILTRATION RATE . ESTIMATED GFR I S NOT APPLICABLE FOR DIALYSIS PATIEN TS. Costumed Character ID - EDASIHepatic function [id number] 04:55:00 Test Item Value Reference Range Interpretation Comments Protein, Total (test 5.6 See_Comment L [Autom ated code = 2885-2) message] The system which generated this result transmit tyra reference range : 6.0 - 8.3 gm/dL . The reference range was not u sed to interpret th is result as normal/abnormal . Albumin (test code = 3.0 g/dL 3.5-5 L 85272-2) Total Bilirubin (test 0.4 mg/dL 0.2-1.2 code = 1974-2) Bilirubin, Direct 0.2 mg/dL 0.1-0.5 (test code = 1967-7) Alkaline Phosphatase 70 U/L 40-150 (test code = 6768-6) AST (test code = 16 U/L 5-34 1920-8) ALT (test code = 9 U/L 6-55 1742-6) JERONIMO (test code = JERONIMO) Costumed Character ID - EDASI Lab Interpretation Abnormal (test code = 25097-9) [id number] Test Item Value Reference Range Interpretation Comments MAGNESIUM (BEAKER) (test code = 2.1 mg/dL 1.6-2.6 627) Costumed Character ID - EDASIHEPATIC FUNCTION [id number] 04:55:00 Test Item Value Reference Range Interpretation Comments TOTAL PROTEIN (BEAKER) (test code = 5.6 gm/dL 6.0-8.3 L 770) ALBUMIN (BEAKER) (test code = 1145) 3.0 g/dL 3.5-5.0 L BILIRUBIN TOTAL (BEAKER) (test code 0.4 mg/dL 0.2-1.2 = 377) BILIRUBIN DIRECT (BEAKER) (test 0.2 mg/dL 0.1-0.5 code = 706) ALKALINE PHOSPHATASE (BEAKER) (test 70 U/L 40-150 code = 346) AST (SGOT) (BEAKER) (test code = 16 U/L 5-34 353) ALT (SGPT) (BEAKER) (test code = 9 U/L 6-55 347) Costumed Character ID - EDASICBC W/PLT COUNT & AUTO [id number] 04:27:00 Test Item Value Reference Range Interpretation Comments WHITE BLOOD CELL COUNT (BEAKER) 4.5 K/ L 3.5-10.5 (test code = 775) RED BLOOD CELL COUNT (BEAKER) 2.87 M/ L 4.63-6.08 L (test code = 761) HEMOGLOBIN (BEAKER) (test code = 9.0 GM/DL 13.7-17.5 L 410) HEMATOCRIT (BEAKER) (test code = 28.4 % 40.1-51.0 L 411) MEAN CORPUSCULAR VOLUME (BEAKER) 99.0 fL 79.0-92.2 H (test code = 753) MEAN CORPUSCULAR HEMOGLOBIN 31.4 pg 25.7-32.2 (BEAKER) (test code = 751) MEAN CORPUSCULAR HEMOGLOBIN CONC 31.7 GM/DL 32.3-36.5 L (BEAKER) (test code = 752) RED CELL DISTRIBUTION WIDTH 13.6 % 11.6-14.4 (BEAKER) (test code = 412) PLATELET COUNT (BEAKER) (test 149 K/CU MM 150-450 L code = 756) MEAN PLATELET VOLUME (BEAKER) 10.1 fL 9.4-12.4 (test code = 754) NUCLEATED RED BLOOD CELLS 0 /100 WBC 0-0 (BEAKER) (test code = 413) NEUTROPHILS RELATIVE PERCENT 83 % (BEAKER) (test code = 429) LYMPHOCYTES RELATIVE PERCENT 5 % (BEAKER) (test code = 430) MONOCYTES RELATIVE PERCENT 11 % (BEAKER) (test code = 431) EOSINOPHILS RELATIVE PERCENT 0 % (BEAKER) (test code = 432) BASOPHILS RELATIVE PERCENT 0 % (BEAKER) (test code = 437) NEUTROPHILS ABSOLUTE COUNT 3.71 K/ L 1.78-5.38 (BEAKER) (test code = 670) LYMPHOCYTES ABSOLUTE COUNT 0.21 K/ L 1.32-3.57 L (BEAKER) (test code = 414) MONOCYTES ABSOLUTE COUNT (BEAKER) 0.51 K/ L 0.30-0.82 (test code = 415) EOSINOPHILS ABSOLUTE COUNT 0.00 K/ L 0.04-0.54 L (BEAKER) (test code = 416) BASOPHILS ABSOLUTE COUNT (BEAKER) 0.01 K/ L 0.01-0.08 (test code = 417) IMMATURE GRANULOCYTES-RELATIVE 0 % 0-1 PERCENT (BEAKER) (test code = 2801) Prepare Leuko-Red [id number] 23:54:00 Test Item Value Reference Range Interpretation Comments CROSSMATCH (test code = 2264) COMPATIBLE Unit ABO (test code = O Pos [id number]) UNIT NUMBER (test code = [id number] 934-0) Status (test code = 5490819) TX_TIMEINCHART Blood Bank Product (test code RED BLOOD CELLS = 2263) PRODUCT CODE (test code = C1258G40 933-2) [facility] METABOLIC [id number] 16:34:00 Test Item Value Reference Range Interpretation Comments SODIUM (BEAKER) 146 meq/L 136-145 H (test code = 381) POTASSIUM (BEAKER) 3.9 meq/L 3.5-5.1 (test code = 379) CHLORIDE (BEAKER) 103 meq/L 98-107 (test code = 382) CO2 (BEAKER) (test 30 meq/L 22-29 H code = 355) BLOOD UREA NITROGEN 17 mg/dL 7-21 (BEAKER) (test code = 354) CREATININE (BEAKER) 0.69 mg/dL 0.57-1.25 (test code = 358) GLUCOSE RANDOM 134 mg/dL 70-105 H (BEAKER) (test code = 652) CALCIUM (BEAKER) 7.3 mg/dL 8.4-10.2 L (test code = 697) EGFR (BEAKER) (test 113 mL/min/1.73 ESTIM ATED GFR IS code = 1092) sq m NOT ACCURATE CREATININE CLEARANCE IN PREDICTING GLOMERULAR FILTRATION RATE . ESTIMATED GFR I S NOT APPLICABLE FOR DIALYSIS PATIEN TS. Costumed Character ID - [id number] 16:32:00 Test Item Value Reference Range Interpretation Comments MAGNESIUM (BEAKER) (test code = 1.8 mg/dL 1.6-2.6 627) Costumed Character ID - ADMINCT, CHEST, WITHOUT [id number] 15:18:00Unlisted Reason for Exam - Click Yes and Enter Reason Below->No [facility] CENTERName: IMELDA VALENCIA : 1950 Sex: MFINAL REPORT CT of the Chest dated 11/01/2020 COMPARISON: 2020 CLINICAL INFORMATION: Pneumothorax, known Comment: Axial images of the chest were obtainedfrom thoracic inlet to the upper abdomen without intravenous contrast. This exam was performed according to our departmental dose- optimization program, which includes automated exposure control, adjustment of the mA and/or kV according to patient size and/or use of interactive reconstruction technique. Heart is normal in size. Vascular calcification is seen in the thoracic aorta and coronary arteries. Great vessels are unremarkable. No adenopathy in the mediastinum or perihilar region. Trachea and mainstem bronchi are patent. A loculated pneumothorax is seen in the left apex measuring approximately 6.5 x 2.6 x 14.7 cm. Loculated bilateral pleural effusion is present worse on the right. There is amoderate to severe pulmonary emphysema worse in the right upper lobe. Consolidation is seen in the lingula and right upper lobe with air bronchogram. Reticulonodular pulmonary parenchyma disease is seen in both lungs is suggestive of a atypical pneumonia worse than prior study. Visualized upper abdomen demonstrates no focal lesion. Impression: 1. Loculated bilateral pleural effusion and loculated left pneumothorax.2. Pulmonary emphysema.3. Interval worsening of reticulonodular pulmonary parenchyma disease in both lungs and consolidation in the lingula and right upper lobe suggestive of atypical pneumonia. Signed: Saqib Benavidesstephanie Verified Date/Time: 11/01/2020 15:18:06 Reading Location: [facility] B1 C013Y CT Body Reading Room CT chest without IV [id number] 15:18:00Interface, External Ris In - 11/01/2020 3:[address] of the Chest dated 11/01/2020 COMPARISON: October 13, 2020 CLINICAL INFORMATION: Pneumothorax, known Comment: Axial images of the chest were obtained from thoracic inlet to the upper abdomen without intravenous contrast. This exam was performed according to our departmental dose-optimization program, which inc ludes automated exposure control, adjustment of the mA and/or kV according to patient size and/or use of interactive reconstruction technique. Heart is normal in size. Vascular calcification is seen inthe thoracic aorta and coronary arteries. Great vessels are unremarkable. No adenopathy in the mediastinum or perihilar region. Trachea and mainstem bronchi are patent. A loculated pneumothorax is seen in the left apex measuring approximately 6.5 x 2.6 x 14.7 cm. Loculated bilateral pleural effusion is present worse on the right. There is a moderate to severe pulmonary emphysema worse in the right upper lobe. Consolidation is seen in the lingula and right upper lobe with air bronchogram. Reticulonodular pulmonary parenchyma disease is seen in both lungs is suggestive of a atypical pneumonia worse than prior study. Visualized upper abdomen demonstrates no focal lesion. Impression: 1. Loculated bilateral pleural effusion and loculated left pneumothorax.2. Pulmonary emphysema.3. Interval worsening of reticulonodular pulmonary parenchyma disease in both lungs and consolidation in the lingula and right upper lobe suggestive of atypical pneumonia. Signed: Saqib Benavides MDReport Verified Date/Time: 11/01/2020 15:18:06 Reading Location: [facility] C013Y CT Body Reading Room [facility] [place] METABOLIC [id number] 04:13:00 Test Item Value Reference Range Interpretation Comments SODIUM (BEAKER) 147 meq/L 136-145 H (test code = 381) POTASSIUM (BEAKER) 3.6 meq/L 3.5-5.1 (test code = 379) CHLORIDE (BEAKER) 104 meq/L 98-107 (test code = 382) CO2 (BEAKER) (test 32 meq/L 22-29 H code = 355) BLOOD UREA NITROGEN 16 mg/dL 7-21 (BEAKER) (test code = 354) CREATININE (BEAKER) 0.71 mg/dL 0.57-1.25 (test code = 358) GLUCOSE RANDOM 73 mg/dL 70-105 (BEAKER) (test code = 652) CALCIUM (BEAKER) 7.1 mg/dL 8.4-10.2 L (test code = 697) EGFR (BEAKER) (test 109 mL/min/1.73 ESTIM ATED GFR IS code = 1092) sq m NOT ACCURATE CREATININE CLEARANCE IN PREDICTING GLOMERULAR FILTRATION RATE . ESTIMATED GFR I S NOT APPLICABLE FOR DIALYSIS PATIEN TS. Costumed Character ID - ADMINTSH/Free T4 If [id number] 04:09:00 Test Item Value Reference Range Interpretation Comments TSH (test code = 0.367 See_Comment [Automated 33891-1) message] The system which generated this result transmit tyra reference range : 0.350 - 4.940 uIU/mL. The reference range was not used to interpret this result as normal/abnormal . JERONIMO (test code = JERONIMO) Costumed Character ID - ADMIN Lab Interpretation Normal (test code = 11630-5) [facility] T4 IF [id number] 04:09:00 Test Item Value Reference Range Interpretation Comments THYROID STIMULATING HORMONE 0.367 uIU/mL 0.350-4.940 (BEAKER) (test code = 772) Costumed Character ID - [id number] 03:38:00 Test Item Value Reference Range Interpretation Comments MAGNESIUM (BEAKER) (test code = 1.8 mg/dL 1.6-2.6 627) Costumed Character ID - ADMINHEPATIC FUNCTION [id number] 03:38:00 Test Item Value Reference Range Interpretation Comments TOTAL PROTEIN (BEAKER) (test code = 5.6 gm/dL 6.0-8.3 L 770) ALBUMIN (BEAKER) (test code = 1145) 3.1 g/dL 3.5-5.0 L BILIRUBIN TOTAL (BEAKER) (test code 0.5 mg/dL 0.2-1.2 = 377) BILIRUBIN DIRECT (BEAKER) (test 0.3 mg/dL 0.1-0.5 code = 706) ALKALINE PHOSPHATASE (BEAKER) (test 69 U/L 40-150 code = 346) AST (SGOT) (BEAKER) (test code = 15 U/L 5-34 353) ALT (SGPT) (BEAKER) (test code = 9 U/L 6-55 347) Costumed Character ID - ADMINCBC W/PLT COUNT & AUTO [id number] 03:10:00 Test Item Value Reference Range Interpretation Comments WHITE BLOOD CELL COUNT (BEAKER) 4.4 K/ L 3.5-10.5 (test code = 775) RED BLOOD CELL COUNT (BEAKER) 2.82 M/ L 4.63-6.08 L (test code = 761) HEMOGLOBIN (BEAKER) (test code = 8.7 GM/DL 13.7-17.5 L 410) HEMATOCRIT (BEAKER) (test code = 28.1 % 40.1-51.0 L 411) MEAN CORPUSCULAR VOLUME (BEAKER) 99.6 fL 79.0-92.2 H (test code = 753) MEAN CORPUSCULAR HEMOGLOBIN 30.9 pg 25.7-32.2 (BEAKER) (test code = 751) MEAN CORPUSCULAR HEMOGLOBIN CONC 31.0 GM/DL 32.3-36.5 L (BEAKER) (test code = 752) RED CELL DISTRIBUTION WIDTH 14.1 % 11.6-14.4 (BEAKER) (test code = 412) PLATELET COUNT (BEAKER) (test 114 K/CU MM 150-450 L code = 756) MEAN PLATELET VOLUME (BEAKER) 10.2 fL 9.4-12.4 (test code = 754) NUCLEATED RED BLOOD CELLS 0 /100 WBC 0-0 (BEAKER) (test code = 413) NEUTROPHILS RELATIVE PERCENT 82 % (BEAKER) (test code = 429) LYMPHOCYTES RELATIVE PERCENT 3 % (BEAKER) (test code = 430) MONOCYTES RELATIVE PERCENT 14 % (BEAKER) (test code = 431) EOSINOPHILS RELATIVE PERCENT 0 % (BEAKER) (test code = 432) BASOPHILS RELATIVE PERCENT 0 % (BEAKER) (test code = 437) NEUTROPHILS ABSOLUTE COUNT 3.62 K/ L 1.78-5.38 (BEAKER) (test code = 670) LYMPHOCYTES ABSOLUTE COUNT 0.15 K/ L 1.32-3.57 L (BEAKER) (test code = 414) MONOCYTES ABSOLUTE COUNT (BEAKER) 0.60 K/ L 0.30-0.82 (test code = 415) EOSINOPHILS ABSOLUTE COUNT 0.01 K/ L 0.04-0.54 L (BEAKER) (test code = 416) BASOPHILS ABSOLUTE COUNT (BEAKER) 0.00 K/ L 0.01-0.08 L (test code = 417) IMMATURE GRANULOCYTES-RELATIVE 1 % 0-1 PERCENT (BEAKER) (test code = 2801) SARS-COV2/RT-PCR ([facility])2020-11-01 02:01:00 Test Item Value Reference Range Interpretation Comments SARS-COV2/RT-PCR (test Negative Not Detected, Negative, code = 6740067) See external report for linked test SARS-COV-2 PERFORMING LAB [facility] (test code = 7942079) Negative result for this test determines that [...] Claire SARS-CoV-2 assay.Fact Sheet for Healthcare Providers:https://www.molecular.claire/cali/ YL_RSMP-ToR-1_JWB_Nfql_Evlvm_97-225527.pdfFact Sheet for Healthcare Patients:https://www.Sumoing.ab yen/cali/QX_LJJU-UuZ-8_Dwdtecm_Bguj_Liqyt_JZ_08-712964W9.pdfPerforming Laboratory:[facility] [place] [address] BASIC METABOLIC [id number] 21:58:00 Test Item Value Reference Range Interpretation Comments SODIUM (BEAKER) 145 meq/L 136-145 (test code = 381) POTASSIUM (BEAKER) 3.9 meq/L 3.5-5.1 (test code = 379) CHLORIDE (BEAKER) 104 meq/L 98-107 (test code = 382) CO2 (BEAKER) (test 29 meq/L 22-29 code = 355) BLOOD UREA NITROGEN 16 mg/dL 7-21 (BEAKER) (test code = 354) CREATININE (BEAKER) 0.69 mg/dL 0.57-1.25 (test code = 358) GLUCOSE RANDOM 75 mg/dL 70-105 (BEAKER) (test code = 652) CALCIUM (BEAKER) 7.0 mg/dL 8.4-10.2 L (test code = 697) EGFR (BEAKER) (test 113 mL/min/1.73 ESTIM ATED GFR IS code = 1092) sq m NOT ACCURATE CREATININE CLEARANCE IN PREDICTING GLOMERULAR FILTRATION RATE . ESTIMATED GFR I S NOT APPLICABLE FOR DIALYSIS PATIEN TS. Costumed Character ID - GALLITOB-type Natriuretic Factor (BNP)2020-10-31 15:24:00 Test Item Value Reference Range Interpretation Comments BNP (test code = 83555-9) 183 pg/mL 0-100 H JERONIMO (test code = JERONIMO) Costumed Character ID - MASHA C Lab Interpretation (test Abnormal code = 83876-8) [facility] (BNP)2020-10-31 15:24:00 Test Item Value Reference Range Interpretation Comments B-TYPE NATRIURETIC PEPTIDE (BEAKER) 183 pg/mL 0-100 H (test code = 700) Costumed Character ID - MASHA [id number] 13:13:00 Test Item Value Reference Range Interpretation Comments MAGNESIUM (BEAKER) (test code = 2.0 mg/dL 1.6-2.6 627) Costumed Character ID - MASHA [id number] 12:08:00 Test Item Value Reference Range Interpretation Comments Potassium (test code = 4.0 meq/L 3.5-5.1 2823-3) JERONIMO (test code = JERONIMO) Costumed Character ID - MASHA C Lab Interpretation (test Normal code = 11126-8) [facility]2021-[facility]-15 12:08:00 Test Item Value Reference Range Interpretation Comments POTASSIUM (BEAKER) (test code = 4.0 meq/L 3.5-5.1 379) Costumed Character ID - MASHA COxygen saturation, [id number] 12:03:00 Test Item Value Reference Range Interpretation Comments O2 Saturation (Measured) (test code = 75.6 % 32481-3) [facility] CenterOXYGEN SATURATION, [id number] 12:03:00 Test Item Value Reference Range Interpretation Comments O2 SATURATION (MEASURED) (BEAKER) 75.6 % (test code = 1455) Hemoglobin and [id number] 11:57:00 Test Item Value Reference Range Interpretation Comments Hemoglobin (test code 8.9 See_Comment L [Auto mated = 786-4) message] The system which generated this result transmit tyra reference range : 13.7 - 17.5 GM/ DL. The reference range was not u sed to interpret th is result as normal/abnormal . Hematocrit (test code 28.4 % 40.1-51 L = 4544-3) JERONIMO (test code = JERONIMO) Costumed Character ID - [id number] Lab Interpretation Abnormal (test code = 08706-7) [facility] CenterHEMOGLOBIN AND [id number] 11:57:00 Test Item Value Reference Range Interpretation Comments HEMOGLOBIN (BEAKER) (test code = 8.9 GM/DL 13.7-17.5 L 410) HEMATOCRIT (BEAKER) (test code = 28.4 % 40.1-51.0 L 411) Costumed Character ID - 6000RAD, CHEST, 1 VIEW, NON [id number] 09:04:00Reason for exam:->acute hypox resp failShould this be performed at the bedside?->[facility] 1950 Sex: MFINAL REPORT RAD, CHEST, 1 VIEW, NON DEPT INDICATION: acute hypox resp fail COMPARISON: Prior day's exam FINDINGS: Portable frontal view of the chest. IMPRESSION: Support Lines: Pacer device. Broken pacer wires are unchanged. Lungs and pleura: Spiculated right upper lung opacity is unchanged. Left apical emphysematous disease with adjacent parenchymal opacity is unchanged. Diffusely coarsened lung markings elsewhere are unchanged. Trace bilateral pleural effusions are unchanged. No pneumothorax.Heart and mediastinum: Stable contours. Stable surgical changes.Additional findings: None. Signed: Karla Arboleda Verified Date/Time: 10/31/2020 09:04:22 Reading Location: [facility] Radiology Reading Room XR chest 1 view portable / [id number] 09:04:00 Interface, External Ris In - 10/31/2020 9:29 AM CDTFINAL REPORT RAD, CHEST, 1 VIEW, NON DEPT INDICATION: acute hypox resp fail COMPARISON: Prior day's exam FINDINGS: Portable frontal view of the chest. IMPRESSION: Support Lines: Pacer device. Broken pacer wires are unchanged. Lungs and pleura: Spiculated right upper lung opacity is unchanged. Left apical emphysematous disease with adjacent parenchymal opacity is unchanged. Diffusely coarsened lung markings elsewhere are unchanged. Trace bilateral pleural effusions are unchanged. No pneumothorax.Heart and mediastinum: Stable contours. Stable surgical changes.Additional findings: None. Signed: Karla Arboleda Verified Date/Time: 10/31/2020 09:04:22 Reading Location: [facility] Radiology [facility] + Reflex to [id number] 06:31:00 Test Item Value Reference Range Interpretation Comments Color, UA (test code Colorless = 5778-6) Clarity, UA (test Hazy code = 5767-9) Specific Reading, UA 1.015 1.001-1.035 (test code = 5811-5) pH, UA (test code = 7.0 5.0-8.0 5803-2) Protein, UA (test Negative Negative code = 00891-7) Glucose, UA (test Negative Negative code = 365) Ketones, UA (test Negative Negative code = 2514-8) Bilirubin, UA (test Negative Negative code = 60396-1) Blood, UA (test code Small Negative A = 51527-9) Nitrite, UA (test Negative Negative code = 5802-4) Leukocytes, UA (test Large Negative A code = 5799-2) Urobilinogen, UA 0.2 mg/dL 0.2-1 (test code = 49835-2) RBC, UA (test code = 7 See_Comment [Autom ated 48854-7) message] The system which generated this result transmitted reference range : /HPF. The reference range was not used to interpret this result as normal/abnormal . WBC, UA (test code = 26 See_Comment [Autom ated 5821-4) message] The system which generated this result transmitted reference range : /HPF. The reference range was not used to interpret this result as normal/abnormal . Bacteria, UA (test Occasional code = 98097-0) Mucus (test code = Rare 8247-9) Yeast (test code = Many 68893-4) Specimen Source (test code = 2795) JERONIMO (test code = JERONIMO) Costumed Character ID - [auto]Costumed Character ID - tech Lab Interpretation Abnormal (test code = 17751-0) [facility]/ REFLEX URINE [id number] 06:31:00 Test Item Value Reference Range Interpretation Comments COLOR (BEAKER) (test code = 470) Colorless CLARITY (BEAKER) (test code = 469) Hazy SPECIFIC GRAVITY UA (BEAKER) (test 1.015 1.001-1.035 code = 468) PH UA (BEAKER) (test code = 467) 7.0 5.0-8.0 PROTEIN UA (BEAKER) (test code = Negative Negative 464) GLUCOSE UA (BEAKER) (test code = Negative Negative 365) KETONES UA (BEAKER) (test code = Negative Negative 371) BILIRUBIN UA (BEAKER) (test code = Negative Negative 462) BLOOD UA (BEAKER) (test code = Small Negative A 461) NITRITE UA (BEAKER) (test code = Negative Negative 465) LEUKOCYTE ESTERASE UA (BEAKER) Large Negative A (test code = 466) UROBILINOGEN UA (BEAKER) (test 0.2 mg/dL 0.2-1.0 code = 463) RBC UA (BEAKER) (test code = 519) 7 /HPF WBC UA (BEAKER) (test code = 520) 26 /HPF BACTERIA (BEAKER) (test code = Occasional 517) MUCUS (BEAKER) (test code = 1574) Rare YEAST (BEAKER) (test code = 1585) Many SOURCE(BEAKER) (test code = 2795) Costumed Character ID - [auto]Costumed Character ID - techType and screen, [id number] 05:40:00 Test Item Value Reference Range Interpretation Comments ABO/RH AUTOMATED (BEAKER) (test O POSITIVE code = 2260) Ab Scrn (test code = 890-4) NEGATIVE [facility] CenterPT/[id number] 05:05:00 Test Item Value Reference Interpretation Comments Range Protime (test code = 14.8 See_Comment H [Autom ated 4992-2) message] The system which generated this result transmitted reference range : 11.9 - 14.2 seconds. The reference range was not used to interpret this result as normal/abnormal . INR (test code = 1.19 See_Comment [Automated 1831-6) message] The system which generated this result transmitted reference range : <=5.90. The reference range was not used to interpret this result as normal/abnormal . PTT (test code = 36.8 See_Comment H [Automated 08938-1) message] The system which generated this result transmitted reference range : 22.5 - 36.0 seconds. The reference range was not used to interpret this result as normal/abnormal . JERONIMO (test code = Effective 01/14/2019: JERONIMO) PT Reference Range ChangeNew: 11.9-14.2 Previous: 11.7-14.7 RECOMMENDED COUMADIN/WARFARIN INR THERAPY RANGESSTANDARD DOSE: 2.0-3.0 Includes: PROPHYLAXIS for venous thrombosis, systemic embolization; TREATMENT for venous thrombosis and/or pulmonary embolus.HIGH RISK: Target INR is 2.5-3.5 for patients wiht mechanical heart valves. Lab Interpretation Abnormal (test code = 73499-5) [facility] CenterPT/[id number] 05:05:00 Test Item Value Reference Range Interpretation Comments PROTIME (BEAKER) (test 14.8 seconds 11.9-14.2 H code = 759) INR (BEAKER) (test 1.19 See_Comment [Automat ed code = 370) message] The sy stem which generated this result transmitted reference range : <=5.90. The reference range was not used to interpret this result as normal/abnormal . PARTIAL THROMBOPLASTIN 36.8 seconds 22.5-36.0 H TIME (BEAKER) (test code = 760) Effective 01/14/2019: PT Reference Range ChangeNew: 11.9-14.2 Previous: 11.7- 14.7RECOMMENDED COUMADIN/WARFARIN INR THERAPY RANGESSTANDARD DOSE: 2.0-3.0 Includes: PROPHYLAXIS for venous thrombosis, systemic embolization; TREATMENT for venous thrombosis and/or pulmonary embolus.HIGH RISK: Target INR is2.5-3.5 for patients wiht mechanical heart valves.Prothrombin time/[id number] 05:04:00 Test Item Value Reference Interpretation Comments Range Protime (test code = 14.8 See_Comment H [Autom ated 5902-2) message] The system which generated this result transmitted reference range : 11.9 - 14.2 seconds. The reference range was not used to interpret this result as normal/abnormal . INR (test code = 1.19 See_Comment [Automated 6301-6) message] The system which [...] 2.5-3.5 for patients wiht mechanical heart valves. Lab Interpretation Abnormal (test code = 88461-8) [facility] CenterPROTHROMBIN TIME/[id number] 05:04:00 Test Item Value Reference Range Interpretation Comments PROTIME (BEAKER) 14.8 seconds 11.9-14.2 H (test code = 759) INR (BEAKER) (test 1.19 See_Comment [Automat ed message] code = 370) The system [employer] generated this result transmitted ref erence range: <=5.90. The reference range was not used to int erpret this result as normal/abnormal . Effective 01/14/2019: PT Reference Range ChangeNew: 11.9-14.2 Previous: 11.7- 14.7RECOMMENDED COUMADIN/WARFARIN INR THERAPY RANGESSTANDARD DOSE: 2.0-3.0 Includes: PROPHYLAXIS for venous thrombosis, systemic embolization; TREATMENT for venous thrombosis and/or pulmonary embolus.HIGH RISK: Target INR is2.5-3.5 for patients wiht mechanical heart valves.[id number] 03:56:00 Test Item Value Reference Range Interpretation Comments MAGNESIUM (BEAKER) (test code = 1.5 mg/dL 1.6-2.6 L 627) Costumed Character ID - CHARLENE MHEPATIC FUNCTION [id number] 03:56:00 Test Item Value Reference Range Interpretation Comments TOTAL PROTEIN (BEAKER) (test code = 5.0 gm/dL 6.0-8.3 L 770) ALBUMIN (BEAKER) (test code = 1145) 2.9 g/dL 3.5-5.0 L BILIRUBIN TOTAL (BEAKER) (test code 0.6 mg/dL 0.2-1.2 = 377) BILIRUBIN DIRECT (BEAKER) (test 0.3 mg/dL 0.1-0.5 code = 706) ALKALINE PHOSPHATASE (BEAKER) (test 60 U/L 40-150 code = 346) AST (SGOT) (BEAKER) (test code = 16 U/L 5-34 353) ALT (SGPT) (BEAKER) (test code = 10 U/L 6-55 347) Costumed Character ID - CHARLENE MCBC W/PLT COUNT & AUTO [id number] 03:56:00 Test Item Value Reference Range Interpretation Comments WHITE BLOOD CELL COUNT (BEAKER) 3.7 K/ L 3.5-10.5 (test code = 775) RED BLOOD CELL COUNT (BEAKER) 2.17 M/ L 4.63-6.08 L (test code = 761) HEMOGLOBIN (BEAKER) (test code = 6.8 GM/DL 13.7-17.5 L 410) HEMATOCRIT (BEAKER) (test code = 21.9 % 40.1-51.0 L 411) MEAN CORPUSCULAR VOLUME (BEAKER) 100.9 fL 79.0-92.2 H (test code = 753) MEAN CORPUSCULAR HEMOGLOBIN 31.3 pg 25.7-32.2 (BEAKER) (test code = 751) MEAN CORPUSCULAR HEMOGLOBIN CONC 31.1 GM/DL 32.3-36.5 L (BEAKER) (test code = 752) RED CELL DISTRIBUTION WIDTH 13.8 % 11.6-14.4 (BEAKER) (test code = 412) PLATELET COUNT (BEAKER) (test code 84 K/CU MM 150-450 L = 756) MEAN PLATELET VOLUME (BEAKER) 10.7 fL 9.4-12.4 (test code = 754) NUCLEATED RED BLOOD CELLS (BEAKER) 0 /100 WBC 0-0 (test code = 413) NEUTROPHILS RELATIVE PERCENT 83 % (BEAKER) (test code = 429) LYMPHOCYTES RELATIVE PERCENT 5 % (BEAKER) (test code = 430) MONOCYTES RELATIVE PERCENT 12 % (BEAKER) (test code = 431) EOSINOPHILS RELATIVE PERCENT 0 % (BEAKER) (test code = 432) BASOPHILS RELATIVE PERCENT 0 % (BEAKER) (test code = 437) NEUTROPHILS ABSOLUTE COUNT 3.05 K/ L 1.78-5.38 (BEAKER) (test code = 670) LYMPHOCYTES ABSOLUTE COUNT 0.17 K/ L 1.32-3.57 L (BEAKER) (test code = 414) MONOCYTES ABSOLUTE COUNT (BEAKER) 0.43 K/ L 0.30-0.82 (test code = 415) EOSINOPHILS ABSOLUTE COUNT 0.01 K/ L 0.04-0.54 L (BEAKER) (test code = 416) BASOPHILS ABSOLUTE COUNT (BEAKER) 0.00 K/ L 0.01-0.08 L (test code = 417) IMMATURE GRANULOCYTES-RELATIVE 1 % 0-1 PERCENT (BEAKER) (test code = 2801) BASIC METABOLIC [id number] 03:56:00 Test Item Value Reference Range Interpretation Comments SODIUM (BEAKER) 145 meq/L 136-145 (test code = 381) POTASSIUM (BEAKER) 3.4 meq/L 3.5-5.1 L (test code = 379) CHLORIDE (BEAKER) 106 meq/L 98-107 (test code = 382) CO2 (BEAKER) (test 29 meq/L 22-29 code = 355) BLOOD UREA NITROGEN 18 mg/dL 7-21 (BEAKER) (test code = 354) CREATININE (BEAKER) 0.69 mg/dL 0.57-1.25 (test code = 358) GLUCOSE RANDOM 92 mg/dL 70-105 (BEAKER) (test code = 652) CALCIUM (BEAKER) 6.9 mg/dL 8.4-10.2 L (test code = 697) EGFR (BEAKER) (test 113 mL/min/1.73 ESTIM ATED GFR IS code = 1092) sq m NOT ACCURATE CREATININE CLEARANCE IN PREDICTING GLOMERULAR FILTRATION RATE . ESTIMATED GFR I S NOT APPLICABLE FOR DIALYSIS PATIEN TS. Costumed Character ID - CHARLENE MCARDIAC CATH REPORT - [id number] 13:39:05Ordered by an unspecified provider.[facility] CenterC[facility] - SCAN 2020-10-28 13:39:04Ordered by an unspecified provider.[facility] CenterARRYTHMIA IMPLANT REPORT - [id number] 13:39:04Ordered by an unspecified provider.[facility] CenterBASIC METABOLIC PANEL 2020-10-26 05:51:00 Test Item Value Reference Range [...] S NOT APPLICABLE FOR DIALYSIS PATIEN TS. Costumed Character ID - [id number] 05:49:00 Test Item Value Reference Range Interpretation Comments MAGNESIUM (BEAKER) (test code = 1.7 mg/dL 1.6-2.6 627) Costumed Character ID - ASCBC W/PLT COUNT & AUTO [id number] 04:53:00 Test Item Value Reference Range Interpretation [...] (BEAKER) (test code = 2801) BASIC METABOLIC [id number] 07:27:00 Test Item Value Reference Range Interpretation [...] S NOT APPLICABLE FOR DIALYSIS PATIEN TS. Costumed Character ID - [id number] 07:11:00 Test Item Value Reference Range Interpretation Comments MAGNESIUM (BEAKER) (test code = 1.9 mg/dL 1.6-2.6 627) Costumed Character ID - ADMINPROTHROMBIN TIME/[id number] 06:54:00 Test Item Value Reference Range Interpretation Comments PROTIME (BEAKER) 14.6 seconds 11.9-14.2 H (test code = 759) INR (BEAKER) (test 1.17 See_Comment [Automat ed message] code = 370) The system whic h generated this result transmitted ref erence range: [...] mechanical heart valves.Within 24 hours, if on Coumadin [id number] 23:20:00 Test Item Value Reference Range Interpretation Comments MAGNESIUM (BEAKER) (test code = 1.6 mg/dL 1.6-2.6 627) Costumed Character ID - DBHEPATIC FUNCTION [id number] 23:20:00 Test Item Value Reference Range Interpretation [...] (test code = 13 U/L 6-55 347) Costumed Character ID - DBBASIC METABOLIC [id number] 23:20:00 Test Item Value Reference Range Interpretation [...] S NOT APPLICABLE FOR DIALYSIS PATIEN TS. Costumed Character ID - DBLactic acid, [id number] 23:14:00 Test Item Value Reference Range Interpretation Comments Lactate, Venous (test code = 1.78 mmol/L 0.5-2.2 2872) JERONIMO (test code = JERONIMO) Costumed Character ID - DB Lab Interpretation (test Normal code = 77528-0) [facility] CenterLACTIC ACID, [id number] 23:14:00 Test Item Value Reference Range Interpretation Comments LACTATE BLOOD VENOUS (2) (BEAKER) 1.78 mmol/L 0.50-2.20 (test code = 2872) Costumed Character ID - DBSARS-COV2/RT-PCR ([facility])2020-10-24 17:01:00 Test Item Value Reference Range Interpretation Comments SARS-COV2/RT-PCR (test Negative Not Detected, Negative, code = 7027001) See external report for linked test SARS-COV-2 PERFORMING LAB [facility] (test code = 6119491) Negative result for this test determines that [...] 564(g) of the Act.Fact Sheet for Healthcare Providers:https://www.Flipps/sites/default/files/product/documents/Fact_Shee j_HW_Ecnltmmhn_Mamb_NILR-ZzC-7.pdfFact Sheet for Healthcare Patients:https://www.Flipps/sites/default/files/product/ documents/Igzo_Oimsa_Ytmoctgr_Zlqe_AEFF-SyX-0.pdfPerforming Laboratory:[facility], [place] [address]GNRPOI ACID, VENOUS 2020-10-24 16:50:00 Test Item Value Reference Range Interpretation Comments LACTATE BLOOD VENOUS (2) (BEAKER) 1.62 mmol/L 0.50-2.20 (test code = 2872) Costumed Character ID - ANSHU FBlood gas, [id number] 11:57:00 Test Item Value Reference Range Interpretation Comments pH, Arterial (test code 7.45 7.35-7.45 = 2744-1) pCO2, Arterial (test 57 See_Comment H [Autom ated code = 2018-) message] The system which generated this result [...] 36 Lab Interpretation Abnormal (test code = 81189-8) [facility] CenterBLOOD GAS, [id number] 11:57:00 Test Item Value Reference Range Interpretation [...] 1819) 36.0 RAD, CHEST, 1 VIEW, NON [id number] 11:01:00Reason for exam:->shortness of breathShould this be performed at the bedside?->Yes [facility] 1950 Sex: MFINAL REPORT [...] MDReport Verified Date/Time: 10/24/2020 11:01:27 Reading Location: [facility] Radiology Reading Room LACTIC ACID, [id number] 10:54:00 Test Item Value Reference Range Interpretation Comments LACTATE BLOOD VENOUS (2) (BEAKER) 2.54 mmol/L 0.50-2.20 H (test code = 2872) Costumed Character ID - ANSHU FBASIC METABOLIC [id number] 04:39:00 Test Item Value Reference Range Interpretation [...] S NOT APPLICABLE FOR DIALYSIS PATIEN TS. Costumed Character ID - [id number] 04:33:00 Test Item Value Reference Range Interpretation Comments MAGNESIUM (BEAKER) (test code = 2.0 mg/dL 1.6-2.6 627) Costumed Character ID - ARNALDORAD, CHEST, 1 VIEW, NON [id number] 11:38:00Reason for exam:->Shortness of breath, evaluate for effusionShould this be performed at the bedside?->Yes [facility] 1950 Sex: MFINAL REPORT TECHNIQUE: Frontal view of the chest. INDICATION: Shor tness of breath, evaluate for effusion COMPARISON:Prior day. IMPRESSION:Lines and hardware: Stable.Heart and mediastinum: Stable.Lungs and pleura: Stable pulmonary opacities. No large pleural effusion.Stable left apical pneumothorax.Soft tissues and bones: No acute abnormality. Signed: Ady Wiley MDReport Verified Date/Time: 10/23/2020 11:38:42 Reading Location: [address] Consult Reading Room BASIC METABOLIC [id number] 06:54:00 Test Item Value Reference Range Interpretation [...] S NOT APPLICABLE FOR DIALYSIS PATIEN TS. Costumed Character ID - CHARLENE [id number] 06:53:00 Test Item Value Reference Range Interpretation Comments MAGNESIUM (BEAKER) (test code = 1.7 mg/dL 1.6-2.6 627) Costumed Character ID - CHARLENE MBLOOD GAS, [id number] 09:32:00 Test Item Value Reference Range Interpretation [...] 1819) 32.0 CBC W/PLT COUNT & AUTO [id number] 05:31:00 Test Item Value Reference Range Interpretation [...] (BEAKER) (test code = 2801) BASIC METABOLIC [id number] 05:25:00 Test Item Value Reference Range Interpretation [...] S NOT APPLICABLE FOR DIALYSIS PATIEN TS. Costumed Character ID - [id number] 05:20:00 Test Item Value Reference Range Interpretation Comments MAGNESIUM (BEAKER) (test code = 1.7 mg/dL 1.6-2.6 627) Costumed Character ID - EDASIECG 12 [id number] 10:35:49Interface, External Ris In - 10/21/2020 10:35 AM CSTVentricular Rate 48 BPMAtrial Rate 48 BPMP-R Interval 148 msQRS Duration 86 msQ-T Interval 446 msQTC Calculation(Bazett) 398 msP [place] 72 degreesR [place] 73 degreesT [place] 59 degreesSinus bradycardia with marked sinus arrhythmiaNonspecific T wave abnormalityAbnormal ECGWhen compared with ECG of 18-OCT-2020 09:48,heart rate is lowerConfirmed by Alna Bentley ([id number]) on 10/21/2020 10:35:46 [facility]BASI [facility] [id number] 05:23:00 Test Item Value Reference Range Interpretation [...] S NOT APPLICABLE FOR DIALYSIS PATIEN TS. Costumed Character ID - [id number] 05:21:00 Test Item Value Reference Range Interpretation Comments MAGNESIUM (BEAKER) (test code = 1.7 mg/dL 1.6-2.6 627) Costumed Character ID - EDASICBC W/PLT COUNT & AUTO [id number] 05:10:00 Test Item Value Reference Range Interpretation [...] 0-1 PERCENT (BEAKER) (test code = 2801) B-TYPE NATRIURETIC FACTOR (BNP)2020-10-21 05:08:00 Test Item Value Reference Range Interpretation Comments B-TYPE NATRIURETIC PEPTIDE 1896 pg/mL 0-100 H (BEAKER) (test code = 700) Costumed Character ID - DBTroponin [id number] 18:46:00 Test Item Value Reference Range Interpretation Comments Troponin I (test code = 0.01 ng/mL 0-0.03 34478-6) JERONIMO (test code = JERONIMO) Troponin I [...] DB Lab Interpretation (test Normal code = 66984-6) [facility] CenterTROPONIN [id number] 18:46:00 Test Item Value Reference Range Interpretation [...] failure, acidosis, acute neurological disease, and persistent tachyarrhythmia.Costumed Character ID - DBHeparin antibody 2020-10-20 12:24:00 Test Item Value Reference Range Interpretation Comments Heparin Ab (test code = Negative Negative 3267-2) Heparin Antibody Optical 0.048 <0.400 Density (test code = 2659) JERONIMO (test code = JERONIMO) Probability of HIT based on scoring system: 6-8 = High probability; 4-5 = intermediate probability; 0-3 = low probability Lab Interpretation (test Normal code = 54689-0) [facility] CenterHEPARIN [id number] 12:24:00 Test Item Value Reference Range Interpretation Comments HEPARIN ANTIBODY (BEAKER) (test code Negative Negative = 646) HEPARIN ANTIBODY OD (BEAKER) (test 0.048 <0.400 code = 2659) Probability of HIT based on scoring system: 6-8 = High probability; 4-5 = intermediate probability;0-3 = low wqzopekqdmiNgezmpxv9855-09-41 09:02:00 Test Item Value Reference Range Interpretation Comments Ferritin (test code = 430.17 ng/mL 5-275 H 2276-4) JERONIMO (test code = JERONIMO) Costumed Character ID - ADMIN Lab Interpretation (test Abnormal code = 79081-6) [facility] CenterVitamin B12 and [id number] 09:02:00 Test Item Value Reference Range Interpretation Comments Vitamin B12 (test 336 pg/mL 213-816 code = 2132-9) Folate (test code = 9.20 ng/mL See_Comment [Automa tyra 2284-8) message] The system which generated this result transmit tyra reference range : >=7.00. The reference range was not used to interpret this result as normal/abnormal . JERONIMO (test code = JERONIMO) Costumed Character ID - ADMIN Lab Interpretation Normal (test code = 26240-9) [facility] CenterFERRITIN2021-03-04 09:02:00 Test Item Value Reference Range Interpretation Comments FERRITIN (BEAKER) (test code = 430.17 ng/mL 5.00-275.00 H 361) Costumed Character ID - ADMINVITAMIN B12 AND [id number] 09:02:00 Test Item Value Reference Range Interpretation Comments VITAMIN B12 (BEAKER) 336 pg/mL 213-816 (test code = 774) FOLATE (BEAKER) 9.20 ng/mL See_Comment [Automated message] (test code = 362) The system which generated this result transmitted ref erence range: >=7.00. The reference range was not used to interpr et this result as normal/abnormal . Costumed Character ID - ADMINIron, TIBC, % sat. (without ferritin)2020-10-20 08:27:00 Test Item Value Reference Range Interpretation Comments Iron (test code = 2498-4) 57.0 ug/dL 40-160 TIBC (test code = 2500-7) 148 ug/dL 250-450 L Iron % Saturation (test 39 % 20-55 code = 2502-3) JERONIMO (test code = JERONIMO) Costumed Character ID - ADMIN Lab Interpretation (test Abnormal code = 87415-5) [facility] CenterIRON, TIBC, % SAT. (WITHOUT FERRITIN)2020-10-20 08:27:00 Test Item Value Reference Range Interpretation Comments IRON (BEAKER) (test code = 547) 57.0 ug/dL 40.0-160.0 TOTAL IRON BINDING CAPACITY 148 ug/dL 250-450 L (BEAKER) (test code = 769) IRON % SATURATION (2) (BEAKER) 39 % 20-55 (test code = 2590) Costumed Character ID - ADMINBASIC METABOLIC [id number] 08:22:00 Test Item Value Reference Range Interpretation [...] S NOT APPLICABLE FOR DIALYSIS PATIEN TS. Costumed Character ID - [id number] 08:19:00 Test Item Value Reference Range Interpretation Comments MAGNESIUM (BEAKER) (test code = 1.4 mg/dL 1.6-2.6 L 627) Costumed Character ID - ADMINCBC W/PLT COUNT & AUTO [id number] 08:10:00 Test Item Value Reference Range Interpretation [...] PERCENT (BEAKER) (test code = 2801) Tissue [id number] 18:00:00 Test Item Value Reference Range Interpretation Comments Case Report (test code Surgical Pathology = 104) Report Case: [id number] Authorizing Provider: William Reynoso, Collected: 10/17/2020 08:44 AM Ordering Location: [address] Received: 10/17/2020 01:37 PM Service Pathologist: Margarita Avila MD Specimen: Colon Biopsy, Random DIAGNOSIS (test code = e9kpeUAoWHBzn6gsFRAgzP 3220) FuZzEwMzNcZnRuYmpcdWMx IHtccnRmMVxlcGljOTIwMl zxxaJmTRPbzTTvS2Nwakwy OVhbSZ3bIJ0ksDntlLIbsV EsPXNkUqWoe0win482tUZr v1kjDEMFkbozhZl1cHmzG4 1xh1C9BwncQ33cuNBiTEow yKXwqlfqdpSdHOFSAM6JWR XEVZ5HP61yBouJRDJVSimp XNBxHEZyOR4SATTSJ08IJm oGBG7EFIMAFZjNIN5GYYUk FQEVJ8ILDJlJXLuwCUCtxw 05GIY1DqDay1K8CTB3XRFh DWDeh5uuBRFqcHSfZmMtXf NcZnRuYmpcdWMxXGRlZmYw t5elz841qPBlm6xxAWVbRy Y2tPEtGZVkvQFvA521PPPq TLbkp9bsl6ZbDPNzpAAlq4 C8ORAEfiakzPy5sObrW22w h0R3DkusG4poHHDxIXXsB7 ZlAZ3mAWBtFcv8CYY4KXQ1 MHRkISTsL3TcPY6uVXSbiG WpTAc3x2jyaCedTDSmBDC0 t8rcTBgndaJhMT5ube2qmA f8b2nyemYsOJWzEVVkcNIB QPBsD7BmqRnxVz3qsZm3sJ dhXbttXAC2Vow4XY0hbb17 rei6lHuoSIAnllrjUxI3JZ dwGJPcwekjWAd2GNxpTWCt kNP4EGNhvWDnN5WsNGCuWX 8zfuk1EDF2RFhhAAKwHzH3 NDBcaGVhZGVyeTcyMFxmb2 94OMB0JrHnHM8sJ5Uey1J4 bJ2tqXSyRTJyvHEwNmDjHH Aosu9mzASoURcwh3SzSOE4 nuB9oSLafAIvHUFbBlM0NB jgZY7spv59ZBNvGEB3sw6y bGNccGdicmRyaGVhZFxwZ2 JqLJBfa274AICpK4EbSDMf a4P5fzGcExMiSRVfeFZ8yo D6DBHxAH6ptnxns0urJHbz VGeeNGJjjfI6xvH0ZNTuyI FyR2YubZ0wINDgDH3qhspc u7orIGO0DZtdQMLyVCU5Pm TqRCSgk8Ljfwf1HlQke4At eDJtOUipG29kh097KNUrnj ElA7qjyTMjrdawvPBkynee YUkmilH2CKVhTPrskiznVZ BqVZbfB5gbHdAvPDGnvKvi BXlbz6AkVCGcFYXwYlBgfM HeUJJdFod5ECCutLBwRDTi IhLgX3imulhsFcURQGOxl6 tuR7krkESIrRAuX9FhSZiq ahFdYVdtQMtwHhRaIGs4QI 47GBF6UQZuqv60 CPT Code(s) (test code a0frpCIjYBPnyDL5XkVdVZ = 3357) Pkh6tzr5DujZIbjSRdVGvi eWEoeaRfsa44yJH4lA19LY 1bCNObEyF8NENfriY9Xmk5 PLClSVXkwCKeV918b4chl8 gdapAtwFF4pHuoHSFqKQOb DDcpSKUlFzUtG6YcOQapoS RmPPk9PuP0TWkkOOIjpr2= CLINICAL HISTORY (test m1nhfEZhVQYxxSD7RrWfLF code = 3356) Ijh5tkf6DmjYRceOAjLHgu nFPyuvUqzb85oEV9mE23KL 2aPYRrPsU9DAVoyiA0Tdf1 PNJlIDPjyRFgV694j8dyf4 tegkXdrJR2bJvbRYEqKOVb ONatWGTvUpFvSRDzc6JzOO krA21ox9vaXjAsAJDgLJYj B7mepubeRJUdoo0= SPECIMEN SOURCE (test q3bjkEIxATTgfZQ5VnOnRZ code = 3377) Sfv0ypz4RubCTyiPKyMSwe fARxguAngy07yJL4eA82OZ 7kNPYnOlC0QIWygmS3Pnr3 SFYcZYAewPLwE792u3lwn9 nxyuVvcCA3iGkdMYLsMFJe HWuoQJNdXlTgJ55hg02iPs yosTJ1CTPfXL8dw12reKHn fQ== GROSS DESCRIPTION (test z7oyjULgTHOskHH7MoRkOT code = 3366) Ftz8uix1SwjNSauNYlXUhi oKLeemMuti34jJJ3kQ65PA 5bMYCjJkC8JGSazdW3Xtd1 IFTxLLHudLHvU401w3eqf1 qeaiWwnPS4bRrxIHVqSFJi WTeoVUIuIfDpHqZiBUi9NE VxjG2yNo6zkBAhdT4faZYc UNmcDVY2qAWkNADwRDUoCC HcUO85F1KborQiMMmwQOLs XQXisY7gXQ88lVAmroGpwe WtAtEsaR1eCMFul4EufEru zbYiAM9rXmEpejGnnJxwUJ Yvcr8ikP5rVBjbieNflSvh gyEneT4ka2jopZdzu1JwBU IlFVoaYD18wrJsIBElkDXg klksAQ33EKcrDP6sGDhjKT 2eJWNmNUclHSXaS4TdF0V6 SN8oRRpmPONiFYMeiWQtLW apEXP9Sn7jhFPiRHSytbY1 f8EsZXKwdWhyc1zqGfJwzX d2eoJ5wI6jABxmWYFjz3Dm dHRlIEExLiAgSkcvcGwgXH Bhcn0= MICROSCOPIC DESCRIPTION m0wkuAJqZZGmiEN1DnTlKM (test code = 3371) Xez3oby4UasLWnnSYjJWrb fVXhpmDjmd13cFI4tN21ZD 4wEQBhAmZ2KELnayJ3Vxv0 TGPhHXLwfARjH449r0hbb7 ioypGcdKR8zOlzCLAjXISh IQmnERCaEfFhRHHvWw6tcT VkIFxwYXJ9 [facility] CenterTISSUE [id number] 18:00:00Surgical Pathology Report Case: [id number] Authorizing Provider: William Reynoso, Collected: 10/17/2020 08:44 AM OrderingLocation: [address] Received: 10/17/2020 01:37 PM Service Pathologist: Margarita Avila MD Specimen: Colon Biopsy, Random COLON, RANDOM BIOPSY: - NO SIGNIFICANT PATHOLOGIC ABNORMALITY Signing Pathologist Direct Phone Line: [phone] signed by Margarita Avila MD on 10/19/2020 at 6:00 [facility]/[id number] [id number] diagnosis: HematocheziaColon biopsy, randomReceived in formalin labeled with the patient's name, accession number and "colon biopsy, random" are two vidal-pink irregular biopsy tissue fragments measuring 0.4 x 0.3 x 0.3 cm in aggregate. The specimen is submitted in toto following filtration in cassette A1. JG/pl PerformedBASIC METABOLIC [id number] 04:37:00 Test Item Value Reference Range Interpretation [...] S NOT APPLICABLE FOR DIALYSIS PATIEN TS. Costumed Character ID - CHARLENE MCBC W/PLT COUNT & AUTO [id number] 04:14:00 Test Item Value Reference Range Interpretation [...] PERCENT (BEAKER) (test code = 2801) TROPONIN [id number] 22:25:00 Test Item Value Reference Range Interpretation [...] failure, acidosis, acute neurological disease, and persistent tachyarrhythmia.Costumed Character ID - BSBLOOD GAS, ARTERIAL 2020-10-18 11:42:00 [...] 1819) 28.0 RAD, CHEST, 1 VIEW, NON [id number] 11:20:00Reason for exam:->sob coughShould this be performed at the bedside?->Yes [facility] 1950 Sex: MFINAL REPORT RAD, CHEST, 1 VIEW, NON DEPT INDICATION: sob cough COM PARISON: 10/16/20 FINDINGS: Portable frontal view of the chest. IMPRESSION: Support Lines: None Lungs and pleura: Unchanged airspace and interstitial opacities. Loculated left apic pneumothorax is stableHeart and mediastinum: Stable contours. Stable surgical changes.Additional findings: None. Signed: JR Homero, Tangela Agee Verified Date/Time: 10/18/2020 11:20:27 Reading Location: [facility] Radiology Reading Room B-TYPE NATRIURETIC FACTOR (BNP) 2020-10-18 11:03:00 Test Item Value Reference Range Interpretation Comments B-TYPE NATRIURETIC PEPTIDE 2277 pg/mL 0-100 H (BEAKER) (test code = 700) Costumed Character ID - CHARLENE MTROPONIN [id number] 10:59:00 Test Item Value Reference Range Interpretation [...] failure, acidosis, acute neurological disease, and persistent tachyarrhythmia.Costumed Character ID - CHARLENE MRAD, FOOT, MIN 3 VIEWS, [id number] 07:03:00Reason for exam:->Nonhealing toe wounds [facility] : 1950 Sex: MFINAL REPORT [...] MDReport Verified Date/Time: 10/18/2020 07:03:14 Reading Location: [facility] Radiology Reading Room XR foot 3 views [id number] 07:03:00 Interface, External Ris In - 10/18/2020 [...] MDReport Verified Date/Time: 10/18/2020 07:03:14 Reading Location: [facility] Radiology Reading [facility] [id number] 04:40:00 Test Item Value Reference Range Interpretation [...] S NOT APPLICABLE FOR DIALYSIS PATIEN TS. Costumed Character ID - SMHEMOGLOBIN AND [id number] 04:06:00 Test Item Value Reference Range Interpretation Comments HEMOGLOBIN (BEAKER) (test code = 9.4 GM/DL 13.7-17.5 L 410) HEMATOCRIT (BEAKER) (test code = 31.4 % 40.1-51.0 L 411) Costumed Character ID - 6000HEMOGLOBIN AND [id number] 16:39:00 Test Item Value Reference Range Interpretation Comments HEMOGLOBIN (BEAKER) (test code = 9.7 GM/DL 13.7-17.5 L 410) HEMATOCRIT (BEAKER) (test code = 31.9 % 40.1-51.0 L 411) Costumed Character ID - 6000Operator ID - 6000BASIC METABOLIC [id number] 05:06:00 Test Item Value Reference Range Interpretation [...] S NOT APPLICABLE FOR DIALYSIS PATIEN TS. Costumed Character ID - CHARLENE MHEMOGLOBIN AND [id number] 04:37:00 Test Item Value Reference Range Interpretation Comments HEMOGLOBIN (BEAKER) (test code = 10.6 GM/DL 13.7-17.5 L 410) HEMATOCRIT (BEAKER) (test code = 34.7 % 40.1-51.0 L 411) Costumed Character ID - 6000Operator ID - 6000HEMOGLOBIN AND [id number] 14:24:00 Test Item Value Reference Range Interpretation Comments HEMOGLOBIN (BEAKER) (test code = 9.8 GM/DL 13.7-17.5 L 410) HEMATOCRIT (BEAKER) (test code = 30.4 % 40.1-51.0 L 411) Costumed Character ID - 6000Operator ID - 6000Operator ID - 6000RAD, CHEST, 1 VIEW, NON [id number] 12:41:00Reason for exam:->copd, wheezing, diminished BSShould this be performed at the bedside?->Yes [facility] : 1950 Sex: MFINAL REPORT [...] MDReport Verified Date/Time: 10/16/2020 12:41:17 Reading Location: [facility] B1 C013T Transitional Reading Room SARS-COV2/RT-PCR ([facility])2020-10-16 09:23:00 Test Item Value Reference Range Interpretation Comments SARS-COV2/RT-PCR (test Negative Not Detected, Negative, code = 2474025) See external report for linked test SARS-COV-2 PERFORMING LAB [facility] (test code = 9185988) Negative result for this test determines that [...] 564(g) of the Act.Fact Sheet for Healthcare Providers:https://www.quidel.com/sites/default/files/product/documents/Fact_Shemariangel millerv_XR_Gdippbjhy_Mrae_FUOX-VkS-9.pdfFact Sheet for Healthcare Patients:https://www.Flipps/sites/default/files/product/ documents/Qrqk_Qdqwi_Wmjyahzl_Oddt_JQGB-KrK-2.pdfPerforming Laboratory:[facility], [place] [address]CPOBV METABOLIC PANEL 2020-10-16 03:01:00 Test Item Value [...] S NOT APPLICABLE FOR DIALYSIS PATIEN TS. Costumed Character ID - CHARLENE [id number] 02:55:00 Test Item Value Reference Range Interpretation Comments MAGNESIUM (BEAKER) (test code = 1.6 mg/dL 1.6-2.6 627) Costumed Character ID - CHARLENE MHEMOGLOBIN AND [id number] 23:43:00 Test Item Value Reference Range Interpretation Comments HEMOGLOBIN (BEAKER) (test code = 9.5 GM/DL 13.7-17.5 L 410) HEMATOCRIT (BEAKER) (test code = 29.6 % 40.1-51.0 L 411) Costumed Character ID - 6000HEMOGLOBIN AND [id number] 17:05:00 Test Item Value Reference Range Interpretation Comments HEMOGLOBIN (BEAKER) (test code = 9.3 GM/DL 13.7-17.5 L 410) HEMATOCRIT (BEAKER) (test code = 29.6 % 40.1-51.0 L 411) Costumed Character ID - 6000HEMOGLOBIN AND [id number] 10:47:00 Test Item Value Reference Range Interpretation Comments HEMOGLOBIN (BEAKER) (test code = 9.3 GM/DL 13.7-17.5 L 410) HEMATOCRIT (BEAKER) (test code = 29.8 % 40.1-51.0 L 411) Costumed Character ID - 6000Vancomycin level, [id number] 06:20:00 Test Item Value Reference Range Interpretation Comments Vancomycin Tr (test code = 15.2 ug/mL 10- 4092-3) JERONIMO (test code = JERONIMO) Costumed Character ID - EDASI Lab Interpretation (test Normal code = 99688-3) [facility] CenterVANCOMYCIN LEVEL, [id number] 06:20:00 Test Item Value Reference Range Interpretation Comments VANCOMYCIN TROUGH (BEAKER) (test 15.2 ug/mL 10.0-20.0 code = 522) Costumed Character ID - EDASIBASIC METABOLIC [id number] 05:21:00 Test Item Value Reference Range Interpretation [...] S NOT APPLICABLE FOR DIALYSIS PATIEN TS. Costumed Character ID - EDASICBC W/PLT COUNT & AUTO [id number] 05:02:00 Test Item Value Reference Range Interpretation [...] (BEAKER) (test code = 2801) BASIC METABOLIC [id number] 22:40:00 Test Item Value Reference Range Interpretation [...] S NOT APPLICABLE FOR DIALYSIS PATIEN TS. Costumed Character ID - DBPROTHROMBIN TIME/[id number] 22:33:00 Test Item Value Reference Range Interpretation Comments PROTIME (BEAKER) 15.3 seconds 11.9-14.2 H (test code = 759) INR (BEAKER) (test 1.24 See_Comment [Automat ed message] code = 370) The system [employer] generated this result transmitted ref erence range: [...] 9.1 See_Comment [A utomated message] The system [employer] generated this result transmitted ref erence range: 3.5 - 10 .5 K/L. The refe rence range was not u sed to interpret this result as normal/abnor mal. RBC (test code = 789-8) 3.32 See_Comment L [Au tomated message] The system [employer] generated this result transmitted ref erence range: 4.63 - 6 .08 M/L. The refe rence range was not u sed to interpret this result as normal/abnor mal. MCHC (test code = 786-4) 31.6 See_Comment L [A utomated message] The system [employer] generated this result transmitted ref erence range: [...] L [Aut omated message] 777-3) The system [employer] generated this result transmitted ref erence range: 150 - 45 0 K/CU MM. The referen ce range was not u sed to interpret this result as normal/abnor mal. MPV (test code = 10.9 fL 9.4-12.4 86195-5) nRBC (test code = 413) 0 See_Comment [Aut omated message] The system [employer] generated this result transmitted ref erence range: 0 - 0 /1 00 WBC. The refere nce range was not u sed to interpret this result as normal/abnor mal. Lab Interpretation (test Abnormal code = 14313-0) [facility] CenterCBC (HEMOGRAM ONLY)2020-10-14 22:22:00 Test Item Value Reference [...] (test code = 413) Arterial doppler leg, [id number] 18:35:19Ejection FractionSLEH ECHO HEARTLAB MKCKESSON CPACSRight Impression1. [...] + + + + + + !Prox FILTER HELPER ! !75.7 ! ! ! + + + + + + !Mid FILTER HELPER ! !57 ! ! ! + + + + + + !Dist FILTER HELPER ! !58.5 ! ! ! + + [...] Study 10/14/2020 GENE Age 70 Visit Number [id number] Gender Male Accession Number [id number] Date of 1950 Referring Val Grady, Room Number 1122 Physician DO Investigations Director Joanna Dunne [facility] Interpreting Etta Cortés Physician ProcedureType of Study: Extremities Arteries: Lower [...] + + + + + + !Prox FILTER HELPER ! !75.7 ! ! ! + + + + + + !Mid FILTER HELPER ! !57 ! ! ! + + + + + + !Dist FILTER HELPER ! !58.5 ! ! ! + + + + + + !ProxATA ! !56.5 ! ! ! + + + -------+ + + !Mid RACHANA ! !49.6 ! ! ! + + + + + + !Dist RACAHNA ! !23.1 ! ! ! + + + + + + !Prox Peroneal ! !43.7 ! ! ! + + + + + + !Mid Peroneal ! !45.7 ! ! ! + + + + + + !Dist Peroneal ! !37.3 ! ! ! + + + + + +[id number] 10:36:00 Test Item Value Reference Range Interpretation Comments PROTIME (BEAKER) 15.4 seconds 11.9-14.2 H (test code = 759) INR (BEAKER) (test 1.27 See_Comment [Automat ed message] code = 370) The system [employer] generated this result transmitted ref erence range: <=5.90. The reference range was not used to int erpret this result as normal/abnormal . Effective 01/14/2019: PT Reference Range ChangeNew: 11.9-14.2 Previous: 11.7- 14.7RECOMMENDED COUMADIN/WARFARIN INR THERAPY RANGESSTANDARD DOSE: 2.0-3.0 Includes: PROPHYLAXIS for venous thrombosis, systemic embolization; TREATMENT for venous thrombosis and/or pulmonary embolus.HIGH RISK: Target INR is2.5-3.5 for patients wiht mechanical heart valves.BASIC METABOLIC [id number] 07:56:00 Test Item Value Reference Range Interpretation [...] GFR I S NOT APPLICABLE FOR DIALYSIS PATIALONDRA TS. Costumed Character ID - PIAYA LCBC W/PLT COUNT & AUTO [id number] 07:54:00 Test Item Value Reference Range Interpretation [...] (BEAKER) (test code = 2801) LACTIC ACID, [id number] 07:46:00 Test Item Value Reference Range Interpretation Comments LACTATE BLOOD VENOUS (2) (BEAKER) 0.93 mmol/L 0.50-2.20 (test code = 2872) Costumed Character ID - DEQUAN [id number] 05:56:00 Test Item Value Reference Range Interpretation Comments PTT (test code = 68.7 See_Comment H [Automated message] [id number]) The system [employer] generated this result transmitted ref erence range: 22.5 - 3 6.0 seconds. The reference range was not used to int erpret this result as normal/abnormal . Lab Interpretation (test Abnormal code = 83797-1) [facility]APTT[facility] 05:56:00 Test Item Value Reference Range Interpretation Comments PARTIAL THROMBOPLASTIN TIME 68.7 seconds 22.5-36.0 H (BEAKER) (test code = 760) [id number] 23:03:00 Test Item Value Reference Range Interpretation Comments PARTIAL THROMBOPLASTIN TIME 101.0 seconds 22.5-36.0 H (BEAKER) (test code = 760) CT, CTA, [id number] 21:13:00Unlisted Reason for Exam - Click Yes and Enter Reason Below->Yesaortic thrombusUnlisted Reason for Exam->aortic thrombus [facility] 1950 Sex: MFINAL REPORT [...] are unremarkable RIGHT LOWER EXTREMITY RUN-OFF: Right RN REHABILITATION: Patent Right SFA: Pa tent Right Profunda [...] Arch: Nonopacified LEFT LOWER EXTREMITY RUN-OFF: Left RN REHABILITATION: Patent Left SFA: Diminutive, thrombosed distally Left [...] Purcell Verified Date/Time: 10/13/2020 21:13:07 Reading Location: [address] Transitional Reading Room CT, CTA AAA, W/ DOUG.EXT.[id number] 21:13:00 [facility] : 1950 Sex: MFINAL REPORT [...] are unremarkable RIGHT LOWER EXTREMITY RUN-OFF: Right RN REHABILITATION: Patent Right SFA: Pa tent Right Profunda [...] Arch: Nonopacified LEFT LOWER EXTREMITY RUN-OFF: Left RN REHABILITATION: Patent Left SFA: Diminutive, thrombosed distally Left [...] Purcell Verified Date/Time: 10/13/2020 21:13:07 Reading Location: [address] Transitional Reading Room CTA AAA and [id number] 21:13:00Interface, External Ris In - 10/14/2020 8:59 [...] are unremarkable RIGHT LOWER EXTREMITY RUN-OFF: Right RN REHABILITATION: Patent Right SFA: Patent Right Profunda Femoris: [...] Arch: Nonopacified LEFT LOWER EXTREMITY RUN-OFF: Left RN REHABILITATION: Patent Left SFA: Diminutive, thrombosed distally Left [...] Purcell Verified Date/Time: 10/13/2020 21:13:07 Reading Location: [address] Transitional Reading [facility] [id number] 21:13:00 Interface, External Ris In - 10/14/2020 [...] are unremarkable RIGHT LOWER EXTREMITY RUN-OFF: Right RN REHABILITATION: Patent Right SFA: Patent Right Profunda Femoris: [...] Arch: Nonopacified LEFT LOWER EXTREMITY RUN-OFF: Left RN REHABILITATION: Patent Left SFA: Diminutive, thrombosed distally Left [...] Purcell Verified Date/Time: 10/13/2020 21:13:07 Reading Location: [facility] C013 Transitional Reading Room [facility]2D Echo W/Doppler(CW/PW/Color) 2020-10-13 17:34:18Ejection FractionSLEH ECHO HEARTLAB MKCKESSON CPACSInterface, External Ris In - 10/13/2020 5:34 PM CSTTransthoracic Echocardiography Report (TTE) Demographics Patient Name IMELDA VALENCIA Date ofStudy 10/13/2020 GENE Gender MaleVisit Number [id number] Race Unknown Room Number 1122 Number Date of 1950 Referring Honey Smith Physician Age 70 year(s) Investigations Director Priscilla Montgomery, [facility] Manager Of Case Management Sandy Mora, In terpreting Jose Alejandro Pepe MD [facility] Physician Procedure Type of Study TTE procedure:2DECHO [...] Normal interatrial septum byavailable views. Aortic Valve Msel-pt-oiimklrd AoV cusp thickening. A trace of aortic [...] TR Velocity: 3.11 m/s TR Gradient: 38.58 mmHgLoma Linda University Medical CenterAPTT2021-02-25 16:40:00 Test Item Value Reference Range Interpretation Comments PARTIAL THROMBOPLASTIN TIME 82.3 seconds 22.5-36.0 H (BEAKER) (test code = 760) LACTIC ACID, [id number] 15:16:00 Test Item Value Reference Range Interpretation Comments LACTATE BLOOD VENOUS (2) (BEAKER) 2.28 mmol/L 0.50-2.20 H (test code = 2872) Costumed Character ID - DBHEMOGLOBIN AND [id number] 14:53:00 Test Item Value Reference Range Interpretation Comments HEMOGLOBIN (BEAKER) (test code = 10.9 GM/DL 13.7-17.5 L 410) HEMATOCRIT (BEAKER) (test code = 34.7 % 40.1-51.0 L 411) Costumed Character ID - 6000Operator ID - [id number] 09:04:00 Test Item Value Reference Range Interpretation Comments PARTIAL THROMBOPLASTIN TIME 64.5 seconds 22.5-36.0 H (BEAKER) (test code = 760) [id number] 07:21:00 Test Item Value Reference Range Interpretation Comments Phosphorus (test code = 2.7 mg/dL 2.3-4.7 2777-1) JERONIMO (test code = JERONIMO) Costumed Character ID - DEQUAN L Lab Interpretation (test Normal code = 11086-9) [facility] CenterHEPATIC FUNCTION [id number] 07:21:00 Test Item Value Reference Range Interpretation [...] (test code = 8 U/L 6-55 347) Costumed Character ID - DEQUAN [id number] 07:21:00 Test Item Value Reference Range Interpretation Comments MAGNESIUM (BEAKER) (test code = 1.6 mg/dL 1.6-2.6 627) Costumed Character ID - DEQUAN [id number] 07:21:00 Test Item Value Reference Range Interpretation Comments PHOSPHORUS (BEAKER) (test code = 2.7 mg/dL 2.3-4.7 604) Costumed Character ID Juwan BAIRES LCBC W/PLT COUNT & AUTO [id number] 07:17:00 Test Item Value Reference Range Interpretation [...] 0-1 PERCENT (BEAKER) (test code = 2801) [id number] 06:56:00 Test Item Value Reference Range Interpretation Comments PARTIAL THROMBOPLASTIN TIME 131.5 seconds 22.5-36.0 H (BEAKER) (test code = 760) LACTIC ACID, [id number] 06:55:00 Test Item Value Reference Range Interpretation Comments LACTATE BLOOD VENOUS (2) (BEAKER) 2.23 mmol/L 0.50-2.20 H (test code = 3642) Costumed Character ID - PIAYA LPROTHROMBIN TIME/[id number] 06:52:00 Test Item Value Reference Range Interpretation Comments PROTIME (BEAKER) 19.6 seconds 11.9-14.2 H (test code = 759) INR (BEAKER) (test 1.71 See_Comment [Automat ed message] code = 370) The system [employer] generated this result transmitted ref erence range: <=5.90. The reference range was not used to int erpret this result as normal/abnormal . Effective 01/14/2019: PT Reference Range ChangeNew: 11.9-14.2 Previous: 11.7- 14.7RECOMMENDED COUMADIN/WARFARIN INR THERAPY RANGESSTANDARD DOSE: 2.0-3.0 Includes: PROPHYLAXIS for venous thrombosis, systemic embolization; TREATMENT for venous thrombosis and/or pulmonary embolus.HIGH RISK: Target INR is2.5-3.5 for patients wiht mechanical heart valves.[id number] 02:10:00 Test Item Value Reference Range Interpretation Comments Procalcitonin (test <0.05 See_Comment [Automa tyra code = 82293-4) message] The system which generated this result transmit tyra reference range : <0.05 ng/mL. Th e reference range was not used to interpret this result as normal/abnormal . JERONIMO (test code = JERONIMO) SEPSIS RISK (ng/mL)Low: 0.05-0.50Inter mediate: 0.51-2.00High: >=2.01 Lab Interpretation Normal (test code = 23882-0) [facility] CenterPROCALCITONIN2021-02-25 02:10:00 Test Item Value Reference Range Interpretation Comments PROCALCITONIN (BEAKER) (test code = < ng/mL <0.05 3036) SEPSIS RISK (ng/mL)Low: 0.05-0.50Intermediate: 0.51-2.00High: >=2.01B-TYPE NATRIURETIC FACTOR (BNP)2020-10-13 02:04:00 Test Item Value Reference Range Interpretation Comments B-TYPE NATRIURETIC PEPTIDE (BEAKER) 784 pg/mL 0-100 H (test code = 700) Costumed Character ID - PIAYA LBASIC METABOLIC [id number] 01:56:00 Test Item Value Reference Range Interpretation [...] S NOT APPLICABLE FOR DIALYSIS PATIEN TS. Costumed Character ID - DEQUAN LLACTIC ACID, [id number] 01:53:00 Test Item Value Reference Range Interpretation Comments LACTATE BLOOD VENOUS (2) (BEAKER) 3.65 mmol/L 0.50-2.20 H (test code = 2872) Costumed Character ID - DEQUAN LBlood gas, [id number] 01:42:00 Test Item Value Reference Range Interpretation Comments pH, Jerad (test code = 7.37 7.32-7.42 2816-6) pCO2, Jerad (test code = 44 See_Comment [Aut omated 755) message] The sy stem which generated this result transmitted reference range : 41 - 51 mm Hg. The reference range was not used to interpret this result as normal/abnormal . pO2, Jerad (test code = 59 See_Comment H [Auto mated 2285-2) message] The sy stem which generated this result transmitted reference range : 25 - 40 mm Hg. The reference range was not used to interpret this result as normal/abnormal . O2 Sat, Jerad (test code 89.7 % 40-70 H = 2711-0) HCO3, Jerad (test code = 25 mmol/L 21-29 31555-1) Base Excess, Jerad (test -0.5 mmol/L -2-3 code = 1927-3) Patient Temperature 37.0 (test code = 8310-5) FIO2 (test code = 1819) 21 Lab Interpretation Abnormal (test code = 45441-3) [facility] CenterBLOOD GAS, [id number] 01:42:00 Test Item Value Reference Range Interpretation [...] (test code = 1819) 21.0 LACTIC ACID, [id number] 00:11:00 Test Item Value Reference Range Interpretation Comments LACTATE BLOOD VENOUS (2) (BEAKER) 3.19 mmol/L 0.50-2.20 H (test code = 2872) Costumed Character ID - PIAYA [id number] 00:05:00 Test Item Value Reference Range Interpretation Comments PARTIAL THROMBOPLASTIN TIME 34.4 seconds 22.5-36.0 (BEAKER) (test code = 760) 6 hours after starting heparin infusion and as indicated per sliding scale PROTHROMBIN TIME/[id number] 00:04:00 Test Item Value Reference Range Interpretation Comments PROTIME (BEAKER) 18.4 seconds 11.9-14.2 H (test code = 759) INR (BEAKER) (test 1.59 See_Comment [Automat ed message] code = 370) The system [employer] generated this result transmitted ref erence range: [...] heparin infusion and as indicated per sliding scaleCB (HEMOGRAM ONLY)2020-10-12 23:54:00 Test Item Value Reference [...] WBC 0-0 (BEAKER) (test code = 413) [id number]-[id number] 00:00:00Ordered by an unspecified provider.[facility] CenterVASCULAR DIAGRAM -[id number] 11:08:36Ordered by an unspecified provider.[facility] CenterCARDIAC CATH REPORT - [id number] 13:55:24Ordered by an unspecified provider.[facility] CenterBASIC METABOLIC [id number] 05:43:00 Test Item Value Reference Range Interpretation [...] S NOT APPLICABLE FOR DIALYSIS PATIEN TS. Costumed Character ID - CHARLENE [id number] 05:28:00 Test Item Value Reference Range Interpretation Comments MAGNESIUM (BEAKER) (test code = 1.8 mg/dL 1.6-2.6 627) Costumed Character ID - CHARLENE [id number] 05:28:00 Test Item Value Reference Range Interpretation Comments PHOSPHORUS (BEAKER) (test code = 3.1 mg/dL 2.3-4.7 604) Costumed Character ID - CHARLENE MCalcium, [id number] 05:27:00 Test Item Value Reference Range Interpretation Comments Calcium, Ion (test code = 1994-3) 1.07 mmol/L 1.12-1.27 L pH, Blood (test code = 56376-8) 7.32 Lab Interpretation (test code = Abnormal 91639-8) [facility] CenterCALCIUM, [id number] 05:27:00 Test Item Value Reference Range Interpretation Comments CALCIUM IONIZED (BEAKER) (test 1.07 mmol/L 1.12-1.27 L code = 698) PH, BLOOD (BEAKER) (test code = 7.32 1810) CBC W/PLT COUNT & AUTO [id number] 05:10:00 Test Item Value Reference Range Interpretation [...] (BEAKER) (test code = 2801) BASIC METABOLIC [id number] 06:33:00 Test Item Value Reference Range Interpretation [...] S NOT APPLICABLE FOR DIALYSIS PATIEN TS. Costumed Character ID - DEQUAN [id number] 06:27:00 Test Item Value Reference Range Interpretation Comments MAGNESIUM (BEAKER) (test code = 1.9 mg/dL 1.6-2.6 627) Costumed Character ID - DEQUAN [id number] 06:27:00 Test Item Value Reference Range Interpretation Comments PHOSPHORUS (BEAKER) (test code = 1.9 mg/dL 2.3-4.7 L 604) Costumed Character ID - DEQUAN LCALCIUM, [id number] 06:25:00 Test Item Value Reference Range Interpretation Comments CALCIUM IONIZED (BEAKER) (test 1.11 mmol/L 1.12-1.27 L code = 698) PH, BLOOD (BEAKER) (test code = 7.37 1810) CBC W/PLT COUNT & AUTO [id number] 06:02:00 Test Item Value Reference Range Interpretation [...] code = 2801) ELIA's Only(Ankle/Brachial Index)2020-08-06 09:42:35Ejection FractionSLEH ECHO HEARTLAB MKCKESSON CPACSRight Impression1. The posterior [...] ofStudy 08/05/2020 GENE Age 70 Visit Number [id number] Gender Male Accession Number [id number] Date of 1950 Referring Goyo Nieves Room Number 1054 Physician Investigations Director Fifi Farrell, Interpreting Etta Cortés RVT Physician ProcedureType of Study: Extremities Arteries: Lower Extremity Arterial Procedure, PV,ARTERIAL ABIL UNILATERAL. Indications for Study:Diminished pulses .Patient Status:Routine.Study Location:Vascular Lab.Technical Quality:Adequate visualization.Risk FactorsHistory of Disease+ +----+ --+!Diagnosis !Date!Comments !+ +----+ +!History/Risk ! !Right carotid endartectomy, AFIB, CAD, COPD, HTN, !!Factors: ! !HLD, Left BKA, stroke, current smoker !+-------- --------+----+ +[facility]ressionsRi [facility] Impression1. Theposterior tibial and dorsalis pedis arteries [...] in cm/s ; Diameters are measured in [facility] W/PLT COUNT & AUTO [id number] 06:00:00 Test Item Value Reference Range Interpretation [...] (BEAKER) (test code = 2801) BASIC METABOLIC [id number] 05:50:00 Test Item Value Reference Range Interpretation [...] S NOT APPLICABLE FOR DIALYSIS PATIEN TS. Costumed Character ID - VERONICA [id number] 05:48:00 Test Item Value Reference Range Interpretation Comments MAGNESIUM (BEAKER) (test code = 1.9 mg/dL 1.6-2.6 627) Costumed Character ID - VERONICA [id number] 05:48:00 Test Item Value Reference Range Interpretation Comments PHOSPHORUS (BEAKER) (test code = 1.7 mg/dL 2.3-4.7 L 604) Costumed Character ID Juwan MARTIN WCALCIUM, [id number] 05:21:00 Test Item Value Reference Range Interpretation Comments CALCIUM IONIZED (BEAKER) (test 1.15 mmol/L 1.12-1.27 code = 698) PH, BLOOD (BEAKER) (test code = 7.38 1810) SARS-COV2/RT-PCR ([facility])2020-08-05 22:48:00 Test Item Value Reference Range Interpretation Comments SARS-COV2/RT-PCR (test Negative Not Detected, Negative, code = 5615162) See external report for linked test SARS-COV-2 PERFORMING LAB [facility] (test code = 2196094) Negative result for this test determines that [...] the Claire SARS-CoV-2 assay.Fact Sheet for Healthcare Providers:https://www.[employer].claire/cali/ AW_FJQF-MlH-2_UNT_Xhbs_Tnflg_82-394793.pdfFact Sheet for Healthcare Patients:https://www.[employer].Davia yen/cali/LA_UIJS-GvD-4_Apidtpa_Mjem_Edstx_VI_71-238993H7.pdfPerforming Laboratory:[facility], [place] [address]SB, PARATHYROID IMAGING WITH SPECT/[id number] 15:24:00Reason for exam:->hyperparathyroid [facility] 1950 Sex: MFINAL REPORT PROCEDURE: PARATHYROID SCAN, with SPECT/CT CPT CODE: 54987 INDICATION: Hyperparathyroidism PROTOCOL: 15.7 mCi of Tc- [...] to indicate parathyroid adenoma. Signed: Homero Lanza MDRepsoutheast miss[facility] hospital Verified Date/Time: 08/05/2020 15:24:48 Reading Location: [address] Reading Room NM parathyroid scan with SPECT/[id number] 15:24:00Interface, External Ris In - 08/05/2020 3:27 PM CSTFINAL REPORT PROCEDURE: PARATHYROID SCAN, with SPECT/CT CPT CODE: 32888 INDICATION: Hyperparathyroidism PROTOCOL: 15.7 mCi of Tc-99m [...] MDReport Verified Date/Time: 08/05/2020 15:24:48 Reading Location: [address] Qlibri [facility] Reading Room [facility] HospitalTROPONIN [id number] 06:36:00 Test Item Value Reference Range Interpretation [...] failure, acidosis, acute neurological disease, and persistent tachyarrhythmia.Costumed Character ID - EDASIBASIC METABOLIC PANEL 2020-08-05 02:59:00 [...] S NOT APPLICABLE FOR DIALYSIS PATIEN TS. Costumed Character ID - EDASITROPONIN [id number] 02:45:00 Test Item Value Reference Range Interpretation [...] failure, acidosis, acute neurological disease, and persistent tachyarrhythmia.Costumed Character ID - [id number] 02:42:00 Test Item Value Reference Range Interpretation Comments MAGNESIUM (BEAKER) (test code = 1.9 mg/dL 1.6-2.6 627) Costumed Character ID - [id number] 02:42:00 Test Item Value Reference Range Interpretation Comments PHOSPHORUS (BEAKER) (test code = 1.6 mg/dL 2.3-4.7 L 604) Costumed Character ID - EDASICBC W/PLT COUNT & AUTO [id number] 02:10:00 Test Item Value Reference Range Interpretation [...] = 2801) RAD, CHEST, 1 VIEW, NON [id number] 02:09:00Reason for exam:->chest painShould this be performed at the bedside?->Yes [facility] 1950 Sex: [...] No significant interval change. Signed: Naren Wang MDReport Verified Date/Time: 08/05/2020 02:09:03 CALCIUM, [id number] 01:58:00 Test Item Value Reference Range Interpretation Comments CALCIUM IONIZED (BEAKER) (test 1.26 mmol/L 1.12-1.27 code = 698) PH, BLOOD (BEAKER) (test code = 7.39 1810) CBC W/PLT COUNT & AUTO [id number] 06:25:00 Test Item Value Reference Range Interpretation [...] (BEAKER) (test code = 2801) BASIC METABOLIC [id number] 06:11:00 Test Item Value Reference Range Interpretation [...] S NOT APPLICABLE FOR DIALYSIS PATIEN TS. Costumed Character ID - DEQUAN [id number] 06:01:00 Test Item Value Reference Range Interpretation Comments MAGNESIUM (BEAKER) (test code = 2.0 mg/dL 1.6-2.6 627) Costumed Character ID - DEQUAN [id number] 06:01:00 Test Item Value Reference Range Interpretation Comments PHOSPHORUS (BEAKER) (test code = 1.9 mg/dL 2.3-4.7 L 604) Costumed Character ID - PIJUAN LCALCIUM, [id number] 04:56:00 Test Item Value Reference Range Interpretation Comments CALCIUM IONIZED (BEAKER) (test 1.29 mmol/L 1.12-1.27 H code = 698) PH, BLOOD (BEAKER) (test code = 7.29 1810) Clostridium difficile GDH [id number] 19:30:00 Test Item Value Reference Range Interpretation Comments C. Difficle Toxin Negative Negative (test code = 7741928789) C. Difficile GDH Negative Negative No indicati on of Antigen (test code = Clostri dium 2827030348) difficile infection and n o colonization. Discontinue enteric isolati on and therapy. JERONIMO (test code = Testing performed JERONIMO) by Ale[employer] Rapid Cassette Assay. For GDH, published sensitivity of the assay is 98.7% compared to cytotoxicity testing. For Toxin AB, published sensitivity is 87.8% and specificity 99.4% compared to cytotoxicity testing.Verificati on of kit performance was done by the [facility] Microbiology Lab prior to clinical use. Lab Interpretation Normal (test code = 34486-3) [facility]. DIFFICILE GDH [id number] 19:30:00 Test Item Value Reference Range Interpretation Comments CDT TOXIN (test code Negative Negative = 1348034937) CDT GDH ANTIGEN (test Negative Negative No ind ication of code = 2767823012) Clostridi um difficile infection and n o colonization. Discontinue ent pat isolation and t herapy. Testing performed by Alere Rapid Cassette Assay. For GDH, published sensitivity of the assay is 98.7% compared to cytotoxicity testing. For Toxin AB, published sensitivity is 87.8% and specificity 99.4% compared to cytotoxicity testing.Verification of kit performance was done by the [facility] Microbiology Lab prior to clinical use.Transesophageal [id number] 09:53:18Ejection FractionSLE ECHO HEARTLAB MKCKESSON CPACSInterface, External Ris In - 08/03/2020 9:53 AM CSTTransesophageal Echocardiography Report (DIANELYS) Demographics Patient Name IMELDA VALENCIA Date of Study 08/01/2020 GENE Gender Male Visit Number [id number] Race Unknown Room Number 1054 Number Date of 1950 Referring Physician Trey Ramos MD Age 70 year(s)Investigations Director Case Farrell [facility] Interpreting Elie Brewer Physician Fellow José Miguel Martinez MD Procedure [...] 21.4 % LVEDVI: 29ml/m^2 LVESVI: 23 ml/m^2[facility]BAS[facility] [id number] 07:25:00 Test Item Value Reference Range Interpretation [...] S NOT APPLICABLE FOR DIALYSIS PATIEN TS. Costumed Character ID - [id number] 06:30:00 Test Item Value Reference Range Interpretation Comments MAGNESIUM (BEAKER) 2.2 mg/dL 1.6-2.6 Specimen slightly (test code = 627) hemolyzed Costumed Character ID - [id number] 06:30:00 Test Item Value Reference Range Interpretation Comments PHOSPHORUS (BEAKER) 2.3 mg/dL 2.3-4.7 Specimen slightly (test code = 604) hemolyzed Costumed Character ID - ADMINCBC W/PLT COUNT & AUTO [id number] 06:05:00 Test Item Value Reference Range Interpretation [...] PERCENT (BEAKER) (test code = 2801) CALCIUM, [id number] 05:55:00 Test Item Value Reference Range Interpretation Comments CALCIUM IONIZED (BEAKER) (test 1.37 mmol/L 1.12-1.27 H code = 698) PH, BLOOD (BEAKER) (test code = 7.26 1810) Blood Culture - Routine (Right Venipuncture)2020-08-03 03:00:00 Test Item Value Reference Range Interpretation Comments Result (test code = No growth in 5 days 6463-4) [facility] CenterBLOOD [id number] 03:00:00 Test Item Value Reference Range Interpretation Comments CULTURE (BEAKER) (test No growth in 5 days code = 1095) BLOOD [id number] 03:00:00 Test Item Value Reference Range Interpretation Comments CULTURE (BEAKER) (test No growth in 5 days code = 1095) [id number] 06:58:00 Test Item Value Reference Range Interpretation Comments MAGNESIUM (BEAKER) 2.0 mg/dL 1.6-2.6 Specimen slightly (test code = 627) hemolyzed Costumed Character ID - CHARLENE [id number] 06:58:00 Test Item Value Reference Range Interpretation Comments PHOSPHORUS (BEAKER) 2.6 mg/dL 2.3-4.7 Specimen slightly (test code = 604) hemolyzed Costumed Character ID - CHARLENE MBASIC METABOLIC [id number] 06:58:00 Test Item Value Reference Range Interpretation [...] S NOT APPLICABLE FOR DIALYSIS PATIEN TS. Costumed Character CARLY - CHARLENE MPTH, [id number] 06:40:00 Test Item Value Reference Range Interpretation Comments PTH (test code = 2731-8) 86.9 pg/mL 8.5-72.5 H JERONIMO (test code = JERONIMO) Costumed Character ID - CHARLENE Walker Lab Interpretation (test Abnormal code = 05266-8) [facility] CenterPTH, [id number] 06:40:00 Test Item Value Reference Range Interpretation Comments PARATHYROID HORMONE INTACT 86.9 pg/mL 8.5-72.5 H (BEAKER) (test code = 577) Costumed Character CARLY CHANG MCALCIUM, [id number] 06:21:00 Test Item Value Reference Range Interpretation [...] (BEAKER) (test code = 413) BASIC METABOLIC [id number] 07:14:00 Test Item Value Reference Range Interpretation [...] S NOT APPLICABLE FOR DIALYSIS PATIEN TS. Costumed Character ID Juwan ANSHU [id number] 07:14:00 Test Item Value Reference Range Interpretation Comments MAGNESIUM (BEAKER) (test code = 1.9 mg/dL 1.6-2.6 627) Costumed Character ID Juwan ANSHU [id number] 07:14:00 Test Item Value Reference Range Interpretation Comments PHOSPHORUS (BEAKER) (test code = 2.5 mg/dL 2.3-4.7 604) Costumed Character ID Juwan ANSHU FCBC (HEMOGRAM ONLY)2020-08-01 06:21:00 Test Item [...] 0-0 (BEAKER) (test code = 413) CALCIUM, [id number] 05:55:00 Test Item Value Reference Range Interpretation Comments CALCIUM IONIZED (BEAKER) (test 1.28 mmol/L 1.12-1.27 H code = 698) PH, BLOOD (BEAKER) (test code = 7.37 1810) BASIC METABOLIC [id number] 06:43:00 Test Item Value Reference Range Interpretation [...] S NOT APPLICABLE FOR DIALYSIS PATIEN TS. Costumed Character ID - [id number] 06:43:00 Test Item Value Reference Range Interpretation Comments MAGNESIUM (BEAKER) (test code = 2.2 mg/dL 1.6-2.6 627) Costumed Character ID - [id number] 06:43:00 Test Item Value Reference Range Interpretation Comments PHOSPHORUS (BEAKER) (test code = 2.0 mg/dL 2.3-4.7 L 604) Costumed Character ID - DBCBC (HEMOGRAM ONLY)2020-07-31 06:14:00 Test [...] 0-0 (BEAKER) (test code = 413) CALCIUM, [id number] 06:05:00 Test Item Value Reference Range Interpretation Comments CALCIUM IONIZED (BEAKER) (test 1.35 mmol/L 1.12-1.27 H code = 698) PH, BLOOD (BEAKER) (test code = 7.33 1810) CT, CHEST, WITHOUT [id number] 08:31:00Unlisted Reason for Exam - Click Yes and Enter Reason Below->No [facility] : 1950 Sex: [...] MDReport Verified Date/Time: 07/30/2020 08:31:26 Reading Location: [facility] C013Y CT Body Reading Room BASIC METABOLIC [id number] 05:54:00 Test Item Value Reference Range Interpretation [...] S NOT APPLICABLE FOR DIALYSIS PATIEN TS. Costumed Character ID - [id number] 05:54:00 Test Item Value Reference Range Interpretation Comments MAGNESIUM (BEAKER) (test code = 2.0 mg/dL 1.6-2.6 627) Costumed Character ID - [id number] 05:54:00 Test Item Value Reference Range Interpretation Comments PHOSPHORUS (BEAKER) (test code = 2.4 mg/dL 2.3-4.7 604) Costumed Character ID - EDASICBC (HEMOGRAM ONLY)2020-07-30 05:20:00 Test [...] 0-0 (BEAKER) (test code = 413) CALCIUM, [id number] 05:00:00 Test Item Value Reference Range Interpretation [...] 20 % 20-55 (test code = 2590) Costumed Character ID - [id number] Echo W/Doppler(CW/PW/Color)2020-07-29 15:57:29Ejection FractionSLEH ECHO HEARTLAB MKCKJESSION CPACSInterface, External Ris In - 07/29/2020 3:57 PM CSTTransthoracic Echocardiography Report (TTE) Demographics Patient Name IMELDA VALENCIA Date of Study 07/29/2020 GENE Gender Male Visit Number [id number] Race Unknown Room Number 1054 Number Date of 1950 Referring Mary Verduzco Physician MD Tom Age 70 year(s) Investigations Director Interpreting Mady Jones MD Physician Procedure Type of Study TTE procedure:2DECHO W DOPPLER(CW/PW/COLOR) (Routine) Indication s:Dyspnea/SOB.Clinical HistoryAFIB, CAD, COPD, HTN, HLD, Respiratory failure, PVD, Stroke, TIAHGB 12.2HCT 39.1 %Investigations Director: China Johnsonight: 67 inches Weight: 48.99 kg [...] TR Velocity: 2.98 m/s TR Gradient: 35.53 mmHgKaiser Martinez Medical CenterARS-COV2/RT-PCR ([facility]) 2020-07-29 11:34:00 Test Item Value Reference Range Interpretation Comments SARS-COV2/RT-PCR (test Negative Not Detected, Negative, code = 7058411) See external report for linked test SARS-COV-2 PERFORMING LAB [facility] (test code = 7285768) Negative result for this test determines that [...] 564(g) of the Act.Fact Sheet for Healthcare Providers:https://www.[employer]/sites/default/files/product/documents/Fact_Shee g_ST_Oorhchifi_Svys_MNZJ-IvN-0.pdfFact Sheet for Healthcare Patients:https://www.[employer]/sites/default/files/product/ documents/Mvhg_Xvyxl_Rwndmmeu_Wwym_RNEI-IkY-3.pdfPerforming Laboratory:[facility], [place] [id number] 2020-07-29 10:20:00 Test Item Value Reference Range Interpretation Comments PROCALCITONIN (BEAKER) (test code 0.11 ng/mL <0.05 H = 3036) SEPSIS RISK (ng/mL)Low: 0.05-0.50Intermediate: 0.51-2.00High: >=2.01Hemoglobin [id number] 09:05:00 Test Item Value Reference Range Interpretation Comments Hemoglobin A1C (test code = 4548-4) 6.6 % 4.3-6.1 H Lab Interpretation (test code = Abnormal 05408-1) [facility] CenterHEMO[facility]IN [id number] 09:05:00 Test Item Value Reference Range Interpretation Comments HEMOGLOBIN A1C (BEAKER) (test code = 6.6 % 4.3-6.1 H 368) T4, [id number] 08:33:00 Test Item Value Reference Range Interpretation Comments Free T4 (test code = 0.86 ng/dL 0.7-1.48 3024-7) JERONIMO (test code = JERONIMO) Costumed Character ID - MASHA C Lab Interpretation (test Normal code = 97657-7) [facility] CenterT4, [id number] 08:33:00 Test Item Value Reference Range Interpretation Comments FREE T4 (BEAKER) (test code = 655) 0.86 ng/dL 0.70-1.48 Costumed Character ID - MASHA CTSH/FREE T4 IF [id number] 07:37:00 Test Item Value Reference Range Interpretation Comments THYROID STIMULATING HORMONE 0.156 uIU/mL 0.350-4.940 L (BEAKER) (test code = 772) Costumed Character ID - ARNALDOVITAMIN B12 AND [id number] 07:36:00 Test Item Value Reference Range Interpretation Comments VITAMIN B12 (BEAKER) (test code = 386 pg/mL 213-816 774) FOLATE (BEAKER) (test code = 362) 17.10 ng/mL >=7.00 Costumed Character ID - ARNALDOLipid [id number] 07:17:00 Test Item Value Reference Range Interpretation Comments Triglycerides (test 81 mg/dL code = 2571-8) Cholesterol (test code 115 mg/dL = 2093-3) HDL (test code = 37 mg/dL 5-9) LDL Calculated (test 62 mg/dL code = 36271-3) JERONIMO (test code = JERONIMO) Triglyceride Reference Range: Low Risk <150 Borderline 150-199 High Risk 200-499 Very High Risk >=500 Cholesterol Reference Range: Low Risk <200 Borderline 200-239 High Risk >240 HDL Cholesterol Reference Range: Low Risk >=60 High Risk <40 LDL Cholesterol Reference Range: Optimal <100 Near Optimal 100-129 Borderline 130-159 High 160-189 Very High >=190 Costumed Character ID - ARNALDO [facility] CenterBASIC METABOLIC [id number] 07:17:00 Test Item Value Reference Range Interpretation [...] S NOT APPLICABLE FOR DIALYSIS PATIEN TS. Costumed Character ID - [id number] 07:17:00 Test Item Value Reference Range Interpretation Comments MAGNESIUM (BEAKER) (test code = 1.9 mg/dL 1.6-2.6 627) Costumed Character ID - [id number] 07:17:00 Test Item Value Reference Range Interpretation Comments PHOSPHORUS (BEAKER) (test code = 3.9 mg/dL 2.3-4.7 604) Costumed Character ID - EDASILIPID [id number] 07:17:00 Test Item Value Reference Range Interpretation [...] Borderline 130-159 High 160-189 Very High >=190 Costumed Character ID - EDASICBC (HEMOGRAM ONLY)2020-07-29 06:21:00 Test [...] 0-100 H (BEAKER) (test code = 700) Costumed Character ID - DBComprehensive metabolic [id number] 22:27:00 Test Item Value Reference Range Interpretation Comments Protein, Total (test 6.1 See_Comment [Autom ated code = 2885-2) message] The system which generated this result transmit tyra reference range : 6.0 - 8.3 gm/dL . The reference range was not u sed to interpret th is result as normal/abnormal . Albumin (test code = 3.2 g/dL 3.5-5 L 35883-1) Alkaline Phosphatase 97 U/L 40-150 (test code = 6768-6) Total Bilirubin (test 0.9 mg/dL 0.2-1.2 code = 1974-2) Sodium (test code = 143 meq/L 964-066 1234-2) Potassium (test code 4.3 meq/L 3.5-5.1 = 2823-3) Chloride (test code = 102 meq/L 98-107 2074-0) CO2 (test code = 27 meq/L 22-29 2027-9) BUN (test code = 24 mg/dL 7-21 H 3094-0) Creatinine (test code 0.82 mg/dL 0.57-1.25 = 2160-0) Glucose (test code = 112 mg/dL 70-105 H 2345-7) Calcium (test code = 9.6 mg/dL 8.4-10.2 03455-4) AST (test code = 18 U/L 5-34 1920-8) ALT (test code = 12 U/L 6-55 1742-6) EGFR (test code = 93 mL/min/1.73 [place] [address]-9) NOT ACCURATE CREATININE CLEARANCE IN PREDICTING GLOMERULAR FILTRATION RATE . ESTIMATED GFR I S NOT APPLICABLE FOR DIALYSIS PATIEN TSCherise JERONIMO (test code = JERONIMO) Costumed Character ID - DB Lab Interpretation Abnormal (test code = 15022-2) [facility] CenterCOMPREHENSIVE METABOLIC [id number] 22:27:00 Test Item Value Reference Range Interpretation [...] S NOT APPLICABLE FOR DIALYSIS PATIEN TS. Costumed Character ID - [id number] 22:27:00 Test Item Value Reference Range Interpretation Comments MAGNESIUM (BEAKER) (test code = 1.8 mg/dL 1.6-2.6 627) Costumed Character ID - DBCBC W/PLT COUNT & AUTO [id number] 22:13:00 Test Item Value Reference Range Interpretation [...] = 2801) RAD, CHEST, 1 VIEW, NON [id number] 20:27:00Reason for exam:->SOBShould this be performed at the bedside?->Yes [facility] 1950 Sex: MFINAL REPORT [...] sternotomy wires are fractured.. Signed: Ramos Polanco MDRepsoutheast [facility] Verified Date/Time: 07/28/2020 20:27:11 Reading Location: [facility] B1 C013W Consult Reading Room
[2020-11-17 20:56] LABS: Protime INR 1.68
[2020-11-17 21:00] LABS: Absolute Lymphocytes (CBC) 0.3 K/uL (0.7-4.9); Basophils % 0.4 % (0-1.3); Hematocrit 25.8 % (39.6-49.0); Lymphocytes % 5.2 % (15.3-44.8); MPV 8.5 fL (7.6-11.3); RBC Red Blood Cell Count 2.73 M/uL (4.33-5.43)
[2020-11-17] MEDS ORDERED: IPRATROPIUM BROM 0.5MG/2.5ML ONE (21:04)
[2020-11-17] MEDS ORDERED: METHYLPREDNISOLONE 125 MG INJ ONE (21:04)
[2020-11-17] MEDS ORDERED: DIGOXIN 0.25 MG/ML AMP ONE (21:04)
[2020-11-17] MEDS ORDERED: LEVALBUTEROL 1.25 MG/3 ML NEB ONE (21:04)
[2020-11-17] MEDS ORDERED: NA CHLORIDE 0.9% 1,000 ML ONE (21:04)
[2020-11-17] MEDS ORDERED: CEFTRIAXONE/SWI 1gm 1 GM/10 ML SYR ONE (21:05)
[2020-11-17] MEDS ORDERED: FAMOTIDINE 20 MG/2 ML VIAL IV ONE (21:05)
[2020-11-17 21:14] LABS: Arterial Blood Carboxyhemoglob 1.5 % (0-1.5); Blood Gas Oxyhemoglobin 79.6 % (94-97); Blood O2 Saturation 81.5 % (92-98.5)
[2020-11-17 21:18] LABS: ALT/SGPT 16 U/L (12-78); AST/SGOT 25 U/L (15-37); Albumin 1.8 g/dL (3.4-5.0); Alkaline Phosphatase 108 U/L (45-117); BUN Blood Urea Nitrogen 16 mg/dL (7-18); Bicarbonate 32 mmol/L (21-32); Bilirubin Direct 0.4 mg/dL (0-0.2); Bilirubin Total 0.6 mg/dL (0.2-1.0); Glucose Level 118 mg/dL (74-106); Magnesium 1.5 mg/dL (1.8-2.4); NT PRO-BNP 5646 pg/mL (<125); Potassium 3.7 mmol/L (3.5-5.1); Protein, Total 5.5 g/dL (6.4-8.2); Sodium Level 142 mmol/L (136-145); Troponin (Emerg Dept Use Only) < 0.02 ng/mL (0.0-0.045)
--- NOTE | 2020-11-17 21:37 | EDPHYS ---
Physician Documentation [facility] Name: Javed Sams Age: 70 yrs Sex: Male : 1950 Arrival Date: 11/17/2020 Time: 19:57 Bed 26 Private MD: MARIAN Physician Robinson Garcia HPI: 11/17 20:29 This 70 yrs old Male presents to ER via Unassigned with complaints of sob, jase fast hr and cp. 20:29 The patient has shortness of breath at rest. Onset: The symptoms/episode began/occurred jase 1 day(s) ago. Duration: The symptoms are continuous, and are steadily getting worse. The patient's shortness of breath has no apparent modifying factors. The patient or guardian reports chest pain that is located primarily in the anterior chest wall. Onset: 1 day(s) ago. The patient or guardian reports airway noise, cough, difficulty breathing. Modifying factors: The symptoms are alleviated by nothing. the symptoms are aggravated by nothing. Historical: - Allergies: 21:19 NKA; bb - Immunization history:: Adult Immunizations unknown. - Social history:: Smoking status: Patient/guardian denies using tobacco, Stopped _ months ago 4. - Family history:: not pertinent. ROS: 20:29 Constitutional: Negative for fever, chills, and weight loss, Eyes: Negative for injury, jase pain, redness, and discharge, ENT: Negative for injury, pain, and discharge, Neck: Negative for injury, pain, and swelling, Abdomen/GI: Negative for abdominal pain, nausea, vomiting, diarrhea, and constipation, Back: Negative for injury and pain, : Negative for injury, bleeding, discharge, and swelling, MS/Extremity: Negative for injury and deformity, Skin: Negative for injury, rash, and discoloration, Neuro: Negative for headache, weakness, numbness, tingling, and seizure, Psych: Negative for depression, anxiety, suicide ideation, homicidal ideation, and hallucinations, Allergy/Immunology: Negative for hives, rash, and allergies, Endocrine: Negative for neck swelling, polydipsia, polyuria, polyphagia, and marked weight changes, Hematologic/Lymphatic: Negative for swollen nodes, abnormal bleeding, and unusual bruising. 20:29 Cardiovascular: Positive for chest pain, with cough, palpitations. Exam: 20:29 Constitutional: This is a well developed, well nourished patient who is awake, alert, jase and in no acute distress. Head/Face: Normocephalic, atraumatic. Eyes: Pupils equal round and reactive to light, extra-ocular motions intact. Lids and lashes normal. Conjunctiva and sclera are non-icteric and not injected. Cornea within normal limits. Periorbital areas with no swelling, redness, or edema. ENT: Nares patent. No nasal discharge, no septal abnormalities noted. Tympanic membranes are normal and external auditory canals are clear. Oropharynx with no redness, swelling, or masses, exudates, or evidence of obstruction, uvula midline. Mucous membranes moist. Neck: Trachea midline, no thyromegaly or masses palpated, and no cervical lymphadenopathy. Supple, full range of motion without nuchal rigidity, or vertebral point tenderness. No Meningismus. Chest/axilla: Normal chest wall appearance and motion. Nontender with no deformity. No lesions are appreciated. Abdomen/GI: Soft, non-tender, with normal bowel sounds. No distension or tympany. No guarding or rebound. No evidence of tenderness throughout. Back: No spinal tenderness. No costovertebral tenderness. Full range of motion. Male : Normal genitalia with no discharge or lesions. Skin: Warm, dry with normal turgor. Normal color with no rashes, no lesions, and no evidence of cellulitis. MS/ Extremity: Pulses equal, no cyanosis. Neurovascular intact. Full, normal range of motion. Neuro: Awake and alert, GCS 15, oriented to person, place, time, and situation. Cranial nerves II-XII grossly intact. Motor strength 5/5 in all extremities. Sensory grossly intact. Cerebellar exam normal. Normal gait. Psych: Awake, alert, with orientation to person, place and time. Behavior, mood, and affect are within normal limits. 20:29 Cardiovascular: Rate: tachycardic, Rhythm: irregularly irregular, Pulses: Pulses are 4+ in bilateral radial, brachial, femoral, popliteal, posterior tibial and and dorsalis pedis arteries.. Heart sounds: normal, Edema: is not appreciated, JVD: is not appreciated. 20:38 ECG was reviewed by the Attending Physician. [facility] Vital Signs: 20:05 BP 113 / 72; Pulse 94; Resp 22 S; Temp 98.1(O); Pulse Ox 95% on R/A; Weight 49.44 kg bb (R); Height 5 ft. 7 in. (170.18 cm) (R); 20:31 Weight 47.63 kg (R); bb 21:35 BP 110 / 54; Pulse 120; Resp 26 S; Pulse Ox 90% on 3 lpm NC; bb 23:10 BP 85 / 60; Pulse 71; Resp 29; Pulse Ox 99% on BiPAP; jb4 23:28 BP 97 / 60; Pulse 71; Resp 22; Pulse Ox 98% on BiPAP; jb4 20:05 Body Mass Index 17.07 (47.63 kg, 170.18 cm) bb 23:10 Jose Alberto Ellis, SOFTWARE APPLICATIONS DEVELOPER notified of vital signs. Recieved verbal order for 250ml bolus of NS jb4 MDM: 20:16 Patient medically screened. jase 20:32 Differential diagnosis: asthma, Bronchitis CHF exacerbation, Chronic Obstructive jase Pulmonary Disease bronchitis, flu, URI, Myocardial Infarction pneumonia, Pneumothorax pulmonary edema, Pulmonary Embolism. Antibiotic administration: Rocephin and Zithromax given. HEART Score: History: Slightly Suspicious (0), ECG: Non specific repolarization disturbance / LBTB / PM (1), Age: > or = 65 years (2), Risk Factors: > or = 3 Risk factors for atherosclerotic disease (2), [Hypercholesterolemia] [Hypertension] [+ Family HX] [Obesity] Troponin: < or = 1 x Normal Limit (0). The patient was not given aspirin in the Emergency Department. The patient's Wells Deep Vein Thrombosis Score was calculated as follows: Total Score: 0. This patient was found to be at low risk for a deep vein thrombosis by using the Well's assessment criteria Heart Rate >100 BPM (1.5 Pts) Total Score: 0-2 Pts- Low Risk. The patient's pulmonary embolism risk score was calculated as follows: Total Score: 0-2 points. This patient was found to be at low risk for a pulmonary embolism by using the Well's assessment criteria the patients heart rate is greater than 100 beats per minute (1.5 Pts) Total Score:. MATT Risk Score: 1 - patient's age is greater or equal to 65 years, 1 - Three or more CAD risk factors, 1- Known CAD, TOTAL SCORE = 3. Immunization status: Pneumococcal vaccine: Influenza vaccine: Data reviewed: vital signs, nurses notes, lab test result(s), EKG, radiologic studies, CT scan, plain films. Data interpreted: ekg monitor: rate is 104 beats/min, rhythm is atrial fibrillation, Pulse oximetry: on room air is 100 %. Test interpretation: by ED physician or midlevel provider: ECG, plain radiologic studies. 11/17 20:26 Order name: Basic Metabolic Panel [facility] 11/17 20:26 Order name: CBC with Diff; Complete Time: 21:23 [facility] 11/17 20:26 Order name: LFT's; Complete Time: 21:23 [facility] 11/17 20:26 Order name: Magnesium; Complete Time: 21:23 [facility] 11/17 20:26 Order name: NT PRO-BNP; Complete Time: 21:23 [facility] 11/17 20:26 Order name: PT-INR; Complete Time: 21:23 [facility] 11/17 20:26 Order name: Troponin (emerg Dept Use Only); Complete Time: 21:23 [facility] 11/17 20:26 Order name: Blood Culture Adult (2) [facility] 11/17 20:26 Order name: Lactate; Complete Time: 21:23 [facility] 11/17 20:26 Order name: Basic Metabolic Panel; Complete Time: 21:23 EDMS 11/17 20:27 Order name: ABG; Complete Time: 21:23 [facility] 11/17 21:24 Order name: Type And Screen [facility] 11/17 21:25 Order name: Type and Screen; Complete Time: 03:45 EDMS 11/17 20:26 Order name: XRAY Chest (1 view) [facility] 11/17 20:26 Order name: EKG; Complete Time: 20:27 [facility] 11/17 21:28 Order name: BIPAP [facility] 11/17 21:37 Order name: CT Aorta for Dissection [facility] 11/17 22:22 Order name: SARS-COV-2 RT PCR; Complete Time: 03:45 EDMS 11/17 20:26 Order name: Cardiac monitoring; Complete Time: 21:26 [facility] 11/17 20:26 Order name: EKG - Nurse/Tech; Complete Time: 21:25 [facility] 11/17 20:26 Order name: IV Saline Lock; Complete Time: 21:24 [facility] 11/17 20:26 Order name: Labs collected and sent; Complete Time: 21:24 [facility] 11/17 20:26 Order name: O2 Per Protocol; Complete Time: :24 jase 11/17 20:26 Order name: O2 Sat Monitoring; Complete Time: 21:24 [facility] EC:38 Rate is 104 beats/min. Rhythm is irregular. QRS [place] is Normal. UT interval is normal. jase QRS interval is normal. QT interval is normal. No Q waves. T waves are Normal. No ST changes noted. Clinical impression: Atrial Fibrillation. Interpreted by me. Reviewed by me. Administered Medications: 20:50 Drug: Xopenex 2.5 mg Route: Inhalation; bb 20:50 Drug: AtroVENT Aerosol 0.5 mg Route: Inhalation; bb 21:00 Drug: Pepcid (famotidine) 20 mg Route: IVP; Site: right antecubital; bb 21:30 Follow up: Response: No adverse reaction jb4 21:10 Drug: NS 0.9% 1000 ml Route: IV; Rate: 125 ml/hr; Site: left antecubital; bb 23:59 Follow up: Response: No adverse reaction; IV Status: Order to discontinue infusion jb4 21:10 Drug: SOLU-Medrol 2 mg/kg Route: IVP; Site: right antecubital; bb 21:40 Follow up: Response: No adverse reaction jb4 21:22 CANCELLED (Physician Discretion): NS 0.9% 250 ml IV at bolus once bb 21:35 Drug: Digoxin 0.5 mg {Note: BP 110/54, HR 120.} Route: IVP; Site: left antecubital; bb 22:00 Follow up: Response: No adverse reaction jb4 21:37 Drug: Rocephin - (cefTRIAXone) 1 grams Route: IVPB; Infused Over: 30 mins; Site: right ca1 forearm; 21:40 Follow up: Response: No adverse reaction; IV Status: Completed infusion; IV Intake: [id number] 21:55 Drug: Zosyn 3.375 grams Route: IVPB; Infused Over: 60 mins; Site: right antecubital; jb4 23:00 Follow up: Response: No adverse reaction; IV Status: Completed infusion; IV Intake: jb4 100ml 21:55 Drug: Magnesium Sulfate 1 grams Route: IVPB; Infused Over: 1 hrs; Site: right wrist; jb4 23:00 Follow up: Response: No adverse reaction; IV Status: Completed infusion; IV Intake: jb4 100ml 23:15 Drug: NS 0.9% 250 ml Route: IV; Rate: bolus; Site: left antecubital; jb4 23:30 Follow up: Response: No adverse reaction; IV Status: Completed infusion; IV Intake: jb4 250ml Disposition: 11/17/20 21:37 Hospitalization ordered by Frederick Werner for Inpatient Admission. Preliminary diagnosis are Anemia, unspecified, Unspecified combined systolic (congestive) and diastolic (congestive) heart failure, Pneumonia, unspecified organism, Atrial fibrillation and flutter, Hypomagnesemia. - Bed requested for Telemetry/MedSurg (Inpatient). - Status is Inpatient Admission. jb4 - Condition is Fair. - Problem is new. - Symptoms have improved. Signatures: Dispatcher [employer] EDWV Robinson Garcia MD MD cha Ballard, Brenda, RN RN bb Jose Alberto Ellis, CURTAIN MENDER-C CURTAIN MENDER-Cla1 Lorenza cSanlon RN RN Tomasz Snider RN RN jb4 Mary Dumont RN RN ca1 Corrections: (The following items were deleted from the chart) 21:22 20:26 NS 0.9% 250 ml IV at bolus once ordered. [facility] 21:23 20:26 CORONAVIRUS+MR.LAB.BRZ ordered. [facility] 21:38 21:37 Hospitalization Ordered by Frederick Werner MD for Inpatient Admission. Preliminary [facility] diagnosis is Anemia, unspecified; Unspecified combined systolic (congestive) and diastolic (congestive) heart failure; Pneumonia, unspecified organism; Atrial fibrillation and flutter. Bed requested for Telemetry/MedSurg (Inpatient). Status is Inpatient Admission. Condition is Fair. Problem is new. Symptoms have improved. [facility] 23:17 21:38 11/17/2020 21:37 Hospitalization Ordered by Frederick Werner MD for Inpatient cg Admission. Preliminary diagnosis is Anemia, unspecified; Unspecified combined systolic (congestive) and diastolic (congestive) heart failure; Pneumonia, unspecified organism; Atrial fibrillation and flutter; Hypomagnesemia. Bed requested for Telemetry/MedSurg (Inpatient). Status is Inpatient Admission. Condition is Fair. Problem is new. Symptoms have improved. [facility] 11/18 00:16 11/17 23:17 11/17/2020 21:37 Hospitalization Ordered by Frederick Werner MD for Inpatient jb4 Admission. Preliminary diagnosis is Anemia, unspecified; Unspecified combined systolic (congestive) and diastolic (congestive) heart failure; Pneumonia, unspecified organism; Atrial fibrillation and flutter; Hypomagnesemia. Bed requested for Telemetry/MedSurg (Inpatient). Status is Inpatient Admission. Condition is Fair. Problem is new. Symptoms have improved. cg
--- NOTE | 2020-11-17 21:37 | ER ---
Nurse's Notes [facility] Name: Javed Sams Age: 70 yrs Sex: Male : 1950 Arrival Date: 11/17/2020 Time: 19:57 Bed 26 Private MD: Diagnosis: Anemia, unspecified;Unspecified combined systolic (congestive) and diastolic (congestive) heart failure;Pneumonia, unspecified organism;Atrial fibrillation and flutter;Hypomagnesemia Presentation: 11/17 20:05 Chief complaint: EMS states: they were toned out for report of pt with chest pain and bb heart racing. Coronavirus screen: At this time, the client does not indicate any symptoms associated with coronavirus-19. Ebola Screen: No symptoms or risks identified at this time. Initial Sepsis Screen: Does the patient meet any 2 criteria? RR > 20 per min. No. Patient's initial sepsis screen is negative. Initial Sepsis Screen: Does the patient have a suspected source of infection? No. Patient's initial sepsis screen is negative. Risk Assessment: Do you want to hurt yourself or someone else? Patient reports no desire to harm self or others. Onset of symptoms was November 17, 2020. 20:05 Method Of Arrival: EMS: [facility] bb 20:05 Acuity: LÓPEZ 2 bb Historical: - Allergies: 21:19 NKA; bb - Immunization history:: Adult Immunizations unknown. - Social history:: Smoking status: Patient/guardian denies using tobacco, Stopped _ months ago 4. - Family history:: not pertinent. Screenin:30 Abuse screen: Denies threats or abuse. Nutritional screening: No deficits noted. jb4 Tuberculosis screening: No symptoms or risk factors identified. Fall Risk None identified. Assessment: 20:30 General: Appears distressed, uncomfortable, Behavior is calm, cooperative. Pain: Denies jb4 pain. Neuro: Level of Consciousness is awake, alert, obeys commands, Oriented to person, place, time, situation. Cardiovascular: Patient's skin is warm and dry. Respiratory: Airway is patent Respiratory effort is even, labored, Respiratory pattern is symmetrical, tachypnea. GI: No signs and/or symptoms were reported involving the gastrointestinal system. : No signs and/or symptoms were reported regarding the genitourinary system. EENT: No signs and/or symptoms were reported regarding the EENT system. Derm: Skin is intact, Skin is pink, warm \T\ dry. Musculoskeletal: Circulation, motion, and sensation intact. Range of motion: intact in all extremities. 21:30 Reassessment: Reassessment: No changes from previously documented assessment. Patient jb4 and/or family updated on plan of care and expected duration. Pain level reassessed. 22:30 Reassessment: Patient appears in no apparent distress at this time. Patient and/or jb4 family updated on plan of care and expected duration. Pain level reassessed. Pt remains tachypneic but reports feeling much better with the bi-pap on. Respirations have slowed and are more relaxed. 11/18 00:00 Reassessment: Patient appears in no apparent distress at this time. No changes from jb4 previously documented assessment. Patient and/or family updated on plan of care and expected duration. Pain level reassessed. Vital Signs: 11/17 20:05 BP 113 / 72; Pulse 94; Resp 22 S; Temp 98.1(O); Pulse Ox 95% on R/A; Weight 49.44 kg bb (R); Height 5 ft. 7 in. (170.18 cm) (R); 20:31 Weight 47.63 kg (R); bb 21:35 BP 110 / 54; Pulse 120; Resp 26 S; Pulse Ox 90% on 3 lpm NC; bb 23:10 BP 85 / 60; Pulse 71; Resp 29; Pulse Ox 99% on BiPAP; jb4 23:28 BP 97 / 60; Pulse 71; Resp 22; Pulse Ox 98% on BiPAP; jb4 20:05 Body Mass Index 17.07 (47.63 kg, 170.18 cm) bb 23:10 Jose Alberto Ellis NP notified of vital signs. Recieved verbal order for 250ml bolus of NS jb4 ED Course: 19:57 Patient arrived in ED. cf2 20:10 Arm band placed on Patient placed in an exam room, on a stretcher, on oxygen, on bb nurse monitoring, on pulse oximetry. EKG completed in triage. Results shown to . 20:10 Maintain EMS IV. Site clean \T\ dry. Gauge \T\ site: 20 g bilateral AC. bb 20:16 Robinson Garcia MD is Attending Physician. jase 20:30 Patient has correct armband on for positive identification. Bed in low position. Call jb4 light in reach. Side rails up X 1. patient monitor on. Pulse ox on. NIBP on. 21:19 Triage completed. bb 21:21 XRAY Chest (1 view) In Process Unspecified. EDMS 21:21 Inserted saline lock: 20 gauge in right forearm, using aseptic technique. Blood ca1 collected. 21:21 First set of blood cultures drawn by me. ca1 21:34 Frederick Werner MD is Hospitalizing Provider. jase 21:36 Second set of blood cultures drawn by me. ca1 21:37 Tomasz Snider RN is Primary Nurse. jb4 22:51 CT Aorta for Dissection In Process Unspecified. EDMS 04 00:15 No provider procedures requiring assistance completed. Patient admitted, IV remains in jb4 place. Administered Medications: 04 20:50 Drug: Xopenex 2.5 mg Route: Inhalation; bb 20:50 Drug: AtroVENT Aerosol 0.5 mg Route: Inhalation; bb 21:00 Drug: Pepcid (famotidine) 20 mg Route: IVP; Site: right antecubital; bb 21:30 Follow up: Response: No adverse reaction jb4 21:10 Drug: NS 0.9% 1000 ml Route: IV; Rate: 125 ml/hr; Site: left antecubital; bb 23:59 Follow up: Response: No adverse reaction; IV Status: Order to discontinue infusion jb4 21:10 Drug: SOLU-Medrol 2 mg/kg Route: IVP; Site: right antecubital; bb 21:40 Follow up: Response: No adverse reaction jb4 21:22 CANCELLED (Physician Discretion): NS 0.9% 250 ml IV at bolus once bb 21:35 Drug: Digoxin 0.5 mg {Note: BP 110/54, HR 120.} Route: IVP; Site: left antecubital; bb 22:00 Follow up: Response: No adverse reaction jb4 21:37 Drug: Rocephin - (cefTRIAXone) 1 grams Route: IVPB; Infused Over: 30 mins; Site: right ca1 forearm; 21:40 Follow up: Response: No adverse reaction; IV Status: Completed infusion; IV Intake: 01nowv2 21:55 Drug: Zosyn 3.375 grams Route: IVPB; Infused Over: 60 mins; Site: right antecubital; jb4 23:00 Follow up: Response: No adverse reaction; IV Status: Completed infusion; IV Intake: jb4 100ml 21:55 Drug: Magnesium Sulfate 1 grams Route: IVPB; Infused Over: 1 hrs; Site: right wrist; jb4 23:00 Follow up: Response: No adverse reaction; IV Status: Completed infusion; IV Intake: jb4 100ml 23:15 Drug: NS 0.9% 250 ml Route: IV; Rate: bolus; Site: left antecubital; jb4 23:30 Follow up: Response: No adverse reaction; IV Status: Completed infusion; IV Intake: jb4 250ml Intake: 21:40 IV: 10ml; Total: 10ml. jb4 23:00 IV: 100ml; Total: 110ml. jb4 23:00 IV: 100ml; Total: 210ml. jb4 23:30 IV: 250ml; Total: 460ml. jb4 Outcome: 21:37 Decision to Hospitalize by Provider. jase 11/18 00:15 Admitted to Med/surg accompanied by nurse, via stretcher, room 218, with chart, Report jb4 called to STEFANIE Mott Condition: stable Discharge instructions given to patient, Instructed on the need for admit, Demonstrated understanding of instructions. 00:16 Patient left the ED. jb4 Signatures: Dispatcher [employer] Robinson Ocasio MD MD cha Ballard, Brenda, RN RN Tomasz Peace RN RN jb4 Acob, Cheryl, RN RN ca1 Frazier, Celesta cf2
[2020-11-17] MEDS ORDERED: MAGNESIUM SULFATE 1 gm IVPB 1 GM/100 ML BAG IV ONE (22:03)
[2020-11-17] MEDS ORDERED: PIPER/TAZO/NS 3.375gm 3.375 GM/100 ML BAG ONE (22:03)
[2020-11-18] MEDS ORDERED: ALBUMIN HUMAN 25% 100 ML IV ONE (00:21)
--- NOTE | 2020-11-18 00:40 | P.HP ---
Certification for Inpatient Patient admitted to: Inpatient With expected LOS: >2 Midnights Patient will require the following post-hospital care: None Practitioner: I am a practitioner with admitting privileges, knowledge of patient current condition, hospital course, and medical plan of care. Services: Services provided to patient in accordance with Admission requirements found in Title 42 Section 412.3 of the Code of Federal Regulations <Jose Alberto Ellis - Last Filed: 11/18/20 00:41> Patient History Date of Service: 11/18/20 Primary Care Provider: alf doctor Reason for admission: COPD exacerbation History of Present Illness: 70-year-old female with history of end-stage COPD, chronic systolic congestive heart failure status post pacemaker/defibrillator placement, atrial fibrillation on chronic anticoagulation therapy, peripheral vascular disease, hypertension, hypothyroidism, CAD presents emergency department for shortness of breath from the halfway. Patient warts he had increasing shortness of breath over the course of the last 24 hr the. Patient tachypneic, dyspneic, blood pressure soft around 100 systolic. Lab significant for hemoglobin 8.6 hematocrit 25.8 MCV 94.5 creatinine 0.65 GFR greater than 90 albumin 1.8 BNP 5646 ABG demonstrates mild hypercapnia with CO2 of 47.7 PO2 45.2. Patient had CT angiogram which demonstrated extensive cystic fibrotic changes throughout the lungs greatest in the upper lobes whether multiple large cystic cavities and below the superior left breast cavity replace by single large below. Large right and small left pleural effusion mild left pleural enhancement could indicate small empyema. Also noted mild anasarca, 70% chronic stenosis of the abdominal aorta at the level of the kidneys due to dense calcified and stop atherosclerotic plaque. Re demonstrated occlusion of the left common iliac artery with distal reconstitution and multiple tandem stenosis throughout the bilateral iliac and common femoral arteries. See report for more details. During patient's stay in the emergency department he was on BiPAP, tolerating this well blood pressure and soft around 100 systolic, patient admitted for further evaluation and management of COPD exacerbation/acute on chronic systolic heart failure. Patient also noted to have wounds to the right great toe with what appears to be necrotic tissue, patient reports that he has been using Betadine at the halfway to care for his wound. History of left BKA from [facility]. - Past Medical/Surgical History Has patient received pneumonia vaccine in the past: Yes Diabetic: No -: HTN -: 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 -: CAD with CABG, stents, pacemaker/defibrillator -: Chronic systolic congestive heart failure -: Hypertension -: Hyperlipidemia -: Severe PVD -: Chronic stenosis of the abdominal aorta -: CABG -: Stents -: Left BKA Psychosocial/ Personal History: Patient currently resides in halfway - Family History Mother -: Liver disease - Social History Smoking Status: Former smoker Alcohol use: No CD- Drugs: No Caffeine use: Yes Place of Residence: Retirement <Jose Alberto Ellis - Last Filed: 11/18/20 00:41> Date of Service: 11/18/20 <Frederick Werner - Last Filed: 11/18/20 21:25> Allergies cold medicine Allergy (Uncoded 07/06/19 18:10) Nervouseness Home Medications: Levothyroxine [Synthroid*] 75 mcg PO [id number] 09/29/20 Pantoprazole Sodium [Protonix] 40 mg PO DAILY 09/29/20 Sacubitril/Valsartan [Entresto 24 mg-26 mg Tablet] 0.5 each PO BID 09/29/20 Acetaminophen [Tylenol] 650 mg PO Q4HP PRN 11/18/20 Allopurinol 100 mg PO DAILY 11/18/20 Apixaban [Eliquis] 2.5 mg PO BID 11/18/20 Arformoterol Tartrate [Brovana] 15 mcg NEB BIDRESP 11/18/20 Ascorbic Acid [Vitamin C] 500 mg PO DAILY 11/18/20 Atorvastatin Calcium [Lipitor] 40 mg PO BEDTIME 11/18/20 Budesonide [Pulmicort] 0.5 mg IH BID 11/18/20 Cinacalcet HCl [Sensipar] 30 mg PO DAILY 11/18/20 Clopidogrel Bisulfate [Plavix] 75 mg PO DAILY 11/18/20 Codeine/APAP [Tylenol W/Codeine #3 tab] 1 tab PO Q6HP PRN 11/18/20 Dronabinol [Marinol] 2.5 mg PO BID 11/18/20 Finasteride [Proscar] 5 mg PO DAILY 11/18/20 Fluticasone/Umeclidin/Vilanter [Trelegy Ellipta 100-62.5-25] 1 puff IH DAILY 11/18/20 Furosemide [Lasix] 20 mg PO BIDL 11/18/20 Ipratropium/Albuterol Sulfate [Combivent Respimat Inhal [place]] 1 puff IH Q6HP PRN 11/18/20 Ipratropium/Albuterol Sulfate [Iprat-Albut 0.5-3(2.5) mg/3 ml] 3 ml IH Q4HP PRN 11/18/20 L. Acidophilus/L.bulgaricus [Lactobacillus Tablet] 1 each PO BID 11/18/20 Melatonin [Melatonin*] 3 mg PO BEDTIME PRN 11/18/20 Metoprolol Tartrate [Lopressor] 12.5 mg PO BID 11/18/20 Mirtazapine [Remeron] 15 mg PO BEDTIME 11/18/20 Multivitamin [Multiple Vitamins] 1 each PO DAILY 11/18/20 Nicotine [Nicoderm] 1 patch TD DAILY 11/18/20 Nitroglycerin [Nitrostat] 0.4 mg SL SEECOM PRN 11/18/20 Povidone-Iodine [Povidone-Iodine 10% Top Soln] 1 appl TP DAILY 11/18/20 Sennosides [Senna] 8.6 mg PO BEDTIME 11/18/20 Tamsulosin [Flomax] 2 cap PO DAILY 11/18/20 Thiamine HCl [Vitamin B-1] 100 mg PO DAILY 11/18/20 Zinc 50 mg PO DAILY 11/18/20 guaiFENesin [Guaifenesin ER] 600 mg PO Q12HP PRN 11/18/20 Review of Systems 10-point ROS is otherwise unremarkable Respiratory: Shortness of Breath, SOB with Excertion, Wheezing <Jose Alberto Ellis - Last Filed: 11/18/20 00:41> Physical Examination - Physical Exam General: Alert, In no apparent distress, Oriented x3 HEENT: Atraumatic, Normocephalic, Other (Mucous membranes dry) Neck: Supple Respiratory: Diminished, Crackles/rales, Expiratory wheezes Cardiovascular: Edema (Mild pitting edema right lower extremity, left BKA and, anasarca noted on CT), Irregular heart rate/rhythm (AFib, rate controlled) Capillary refill: <2 Seconds Gastrointestinal: Normal bowel sounds, No tenderness, No masses, No rebound Musculoskeletal: No contractures, No erythema, No tenderness Integumentary: Arterial ulcer (Right great toe with necrotic tissue present) Neurological: Normal speech, Normal strength at 5/5 x4 extr, Normal tone, Sensation intact - Studies Laboratory Data (last 24 hrs) 11/17/20 20:40: PT 19.4 H, INR 1.68 11/17/20 20:40: WBC 6.30 D, Hgb 8.6 L, Hct 25.8 L D, Plt Count 168 11/17/20 20:40: Sodium 142, Potassium 3.7, BUN 16, Creatinine 0.65, Glucose 118 H, Magnesium 1.5 L, Total Bilirubin 0.6, AST 25, ALT 16, Alkaline Phosphatase 108 <Jose Alberto Ellis - Last Filed: 11/18/20 00:41> Assessment and Plan - Plan Assessment Acute on chronic respiratory failure secondary to 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 Acute on chronic systolic congestive heart failure Marked hypoalbuminemia Atrial fibrillation on chronic anticoagulation therapy in Hypertension Hypothyroidism CAD s/p CABG, stents, pacemaker defibrillator Severe PVD with chronic stenosis of the abdominal aorta at the level of the kidneys and chronic occlusion of the left common iliac artery Plan Acute on chronic respiratory failure secondary to 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: CT also demonstrated mild left pleural enhancement which could indicate small empyema, continue with scheduled nebs, IV steroids, Zosyn, inhalers. Pulmonology consulted, sputum culture, blood cultures ordered. Continue Eliquis for DVT prophylaxis. Discussed code status with patient, wishes for DNR, at discharge will need to return to halfway. Acute on chronic systolic congestive heart failure: Patient with edema, anasarca, elevated BNP, blood pressure soft with systolic around 100, albumin level 1.8, given 25 g 25% albumin to help promote diuresis and maintain blood pressure. Cardiology consult in place, last echocardiogram available for review is from 2019 which demonstrates EF of 40-45% but judging by previous diagnosis of systolic congestive heart failure EF is probably much lower, continue and entresto and other home medications including Eliquis. Marked hypoalbuminemia: Patient given 1 dose of 25 g 25% albumin 11/18/2020. Will monitor daily labs. Atrial fibrillation on chronic anticoagulation therapy in: Continue Eliquis, beta-angela as tolerated with blood pressure. Cardiology consult in place. Hypertension: blood pressure soft at this time continue with entresto Hypothyroidism: Thyroid panel morning labs, continue levothyroxine CAD s/p CABG, stents, pacemaker defibrillator: Continue aspirin, Plavix, Eliquis, beta-angela,entresto. Cardiology consult in place Severe PVD with chronic stenosis of the abdominal aorta at the level of the kidneys and chronic occlusion of the left common iliac artery: Chronic, stable, continue with home medications. Discharge Plan: Retirement Plan to discharge in: Greater than 2 days - Advance Directives Does patient have a Living Will: No Does patient have a Durable POA for Healthcare: No - Code Status/Comfort Care Code Status Assessed: Yes (DNR) Critical Care: No Time Spent Managing Pts Care (In Minutes): 55 <Jose Alberto Ellis - Last Filed: 11/18/20 00:41> - Plan plan of care reviewed as noted above acute hypoxemic respiratory failure acute on chronic COPD exacerbation acute on chronic systolic CHF exacerbation -diurese, antibiotics for pneumonia/possible osteomyelitis pulm and ID consulted <Frederick Werner - Last Filed: 11/18/20 21:25>
[2020-11-18] MEDS: METHYLPREDNISOLONE 125 MG INJ IV SCH ×3 (01:25→16:13)
[2020-11-18] MEDS: IPRATROPIUM BROM 0.5MG/2.5ML NEB SCH ×4 (02:20→19:25)
[2020-11-18] MEDS: ALBUTEROL 2.5 MG/3 ML NEB SOL NEB SCH ×4 (02:20→19:25)
[2020-11-18 04:49] LABS: Absolute Lymphocytes (CBC) 0.1 K/uL (0.7-4.9); Basophils % 0.1 % (0-1.3); Hematocrit 25.4 % (39.6-49.0); Lymphocytes % 2.2 % (15.3-44.8); MPV 8.5 fL (7.6-11.3); RBC Red Blood Cell Count 2.68 M/uL (4.33-5.43)
[2020-11-18 05:10] LABS: ALT/SGPT 15 U/L (12-78); AST/SGOT 19 U/L (15-37); Albumin 1.9 g/dL (3.4-5.0); Alkaline Phosphatase 93 U/L (45-117); BUN Blood Urea Nitrogen 15 mg/dL (7-18); Bicarbonate 30 mmol/L (21-32); Bilirubin Total 0.4 mg/dL (0.2-1.0); Glucose Level 193 mg/dL (74-106); Magnesium 1.7 mg/dL (1.8-2.4); Potassium 4.1 mmol/L (3.5-5.1); Protein, Total 5.5 g/dL (6.4-8.2); Sodium Level 141 mmol/L (136-145); Thyroid Stimulating Hormone 0.251 uIU/mL (0.360-3.740)
[2020-11-18 05:17] LABS: Urine Appearance CLEAR (Clear); Urine Bilirubin NEGATIVE (Negative); Urine Blood 2+ (Negative); Urine Color YELLOW (Yellow); Urine Glucose NEGATIVE (Negative); Urine Protein NEGATIVE (Negative); Urine Specific Gravity >=1.030 (1.005-1.030); Urine pH 5.5 (5.0-7.0)
[2020-11-18 05:25] LABS: Urine Microscopic Reflex ORDER UMIC
[2020-11-18 05:56] LABS: Urine Bacteria NONE SEEN /HPF (NONE SEEN); Urine RBC <5 /HPF (NONE SEEN)
[2020-11-18 05:57] LABS: Urine Yeast MANY (NONE SEEN); Urine Yeast with Hyphae PRESENT
[2020-11-18] MEDS: LEVOTHYROXINE SOD 0.075 MG TAB PO SCH (06:13)
[2020-11-18] MEDS ORDERED: LEVOTHYROXINE SOD 0.075 MG TAB PO SCH (06:30)
[2020-11-18] MEDS ORDERED: MAGNESIUM SULFATE 1 gm IVPB 1 GM/100 ML BAG IV ONE (06:58)
[2020-11-18] MEDS ORDERED: FLUCONAZOLE 200mg IVPB 200 MG/100 ML BAG IV SCH ×2 (07:00→08:00)
[2020-11-18] MEDS: ARFORMOTEROL TARTRATE 15 MCG/2 ML VIAL.NEB NEB SCH ×2 (07:26→19:25)
--- NOTE | 2020-11-18 08:34 | RAD REPORT ---
EXAM DESCRIPTION: RAD - Foot Right 3 View - 11/18/2020 5:33 am CLINICAL HISTORY: R/O osteo R great toe, right toe pain, soft tissue infection COMPARISON: No comparisons FINDINGS: No fracture, dislocation or periosteal reaction. No evidence for bone destructive osteomye litis in the first toe. Osteomyelitis can exist prior to radiographic bone destruction. Mild degenera tive changes are present elsewhere in the foot. Minimal plantar and Achilles spurs are present. Soft tissue swelling around the first toe is present. No air or foreign body in the soft tissues. IMPRESSION: No first toe bone destructive changes identified. Osteomyelitis can be present prior to radiographic bone destruction. First toe soft tissue swelling with no air in the soft tissues.
[2020-11-18] MEDS ORDERED: PIPER/TAZO/NS 3.375gm 3.375 GM/100 ML BAG IVPB SCH (09:00)
[2020-11-18] MEDS: LACTOBACILLUS/ACIDOPHILUS TAB PO SCH ×2 (09:00→21:51)
[2020-11-18] MEDS ORDERED: SACUBITRIL/VALSARTAN 24/26 MG TAB PO SCH (09:00)
[2020-11-18] MEDS: MULTIVITAMIN TAB PO SCH (09:00)
[2020-11-18] MEDS ORDERED: FUROSEMIDE 40 MG/4 ML VIAL IV SCH (09:00)
[2020-11-18] MEDS ORDERED: APIXABAN 5 MG TABLET PO SCH (09:00)
[2020-11-18] MEDS: BUDESONIDE 0.5 MG/2 ML NEB IH SCH ×2 (09:00→21:00)
[2020-11-18] MEDS: DRONABINOL 2.5 MG PO SCH ×2 (09:00→21:00)
[2020-11-18] MEDS: allopurinoL 100 MG TAB PO SCH (09:00)
[2020-11-18] MEDS: HOME MED 1 EA UNK (Fluticasone/Umeclidin/Vilanter [Trelegy Ellipta 100-62.5-25] Blst.W.Dev IH SCH (09:00)
--- NOTE | 2020-11-18 09:11 | RAD REPORT ---
EXAM DESCRIPTION: RAD - Chest Single View - 11/17/2020 9:21 pm CLINICAL HISTORY: Cough;COPD COMPARISON: Portable October 30 TECHNIQUE: AP portable chest image was obtained 11/17/2020 9:21 pm . FINDINGS: Patient has very extensive chronic pleural and parenchymal opacification. Lateral right up per lung field parenchymal opacification is slightly worse and loculated pleural fluid appears minima lly enlarged. Pacemaker is in place. Sternotomy wires noted. Heart and vasculature are normal. No acute bony abnorm ality seen. No acute aortic findings suspected. IMPRESSION: Suspected superimposed pneumonia on very extensive chronic interstitial lung disease. Extensive chronic pleural changes are present with suspected enlargement of loculated pleural fluid o n the right.
[2020-11-18] MEDS: ASCORBIC ACID 500 MG TABLET PO SCH (09:52)
[2020-11-18] MEDS: POVIDONE IODINE 10% TOP SCH (09:52)
[2020-11-18] MEDS: ASPIRIN EC 81 MG TAB PO SCH (09:52)
[2020-11-18] MEDS: TAMSULOSIN 0.4 MG SR CAP PO SCH (09:53)
[2020-11-18] MEDS: CLOPIDOGREL 75 MG TABLET PO SCH (09:53)
[2020-11-18] MEDS: ZINC SULFATE 220 MG CAP PO SCH (09:53)
[2020-11-18] MEDS: APIXABAN 2.5 MG TABLET PO SCH ×2 (09:54→21:52)
[2020-11-18] MEDS: FINASTERIDE 5 MG TAB PO SCH (09:54)
[2020-11-18] MEDS: PANTOPRAZOLE 40MG TABLET PO SCH (09:54)
[2020-11-18] MEDS: METOPROLOL TAR 25 MG TAB PO SCH ×2 (09:54→21:52)
[2020-11-18] MEDS: THIAMINE HCL 100 MG TABLET PO SCH (09:55)
[2020-11-18] MEDS: NICOTINE 14 MG/PAT TD SCH (09:55)
[2020-11-18] MEDS: DULERA 100/5 (MOMETASONE/FORMOTEROL) INHALER IH SCH ×2 (09:55→21:53)
[2020-11-18] MEDS: ONDANSETRON 4 MG/2 ML VIAL IV PRN ×2 (09:55→16:13)
[2020-11-18] MEDS: CINACALCET HCL 30 MG TAB PO SCH (09:56)
[2020-11-18] MEDS: SACUBITRIL/VALSARTAN 24/26 MG TAB PO SCH ×2 (10:19→21:51)
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
[2020-11-18] MEDS: NITROGLYCERIN 0.4 MG/TAB SL PRN ×2 (11:35→21:29)
--- NOTE | 2020-11-18 13:14 | P.CNS ---
Date of Consult: 11/18/20 Reason for Consult: pneumonia respiratory failure Primary Care Provider: [facility] doctor Chief Complaint: COPD exacerbation History of Present Illness: patient is 70 years of age he has terminal COPD was recently admitted for an effusion and pneumonia he is becoming progressively worse is a very poor historian found to have an extensive infiltrate on the right side in addition to loculated pleural effusion he has underlying chronic respiratory failure in addition to osteomyelitis of 1 of his toes on the right foot Allergies cold medicine Allergy (Uncoded 07/06/19 18:10) Nervouseness Home Medications: Levothyroxine [Synthroid*] 75 mcg PO [id number] 09/29/20 Pantoprazole Sodium [Protonix] 40 mg PO DAILY 09/29/20 Sacubitril/Valsartan [Entresto 24 mg-26 mg Tablet] 0.5 each PO BID 09/29/20 Acetaminophen [Tylenol] 650 mg PO Q4HP PRN 11/18/20 Allopurinol 100 mg PO DAILY 11/18/20 Apixaban [Eliquis] 2.5 mg PO BID 11/18/20 Arformoterol Tartrate [Brovana] 15 mcg NEB BIDRESP 11/18/20 Ascorbic Acid [Vitamin C] 500 mg PO DAILY 11/18/20 Atorvastatin Calcium [Lipitor] 40 mg PO BEDTIME 11/18/20 Budesonide [Pulmicort] 0.5 mg IH BID 11/18/20 Cinacalcet HCl [Sensipar] 30 mg PO DAILY 11/18/20 Clopidogrel Bisulfate [Plavix] 75 mg PO DAILY 11/18/20 Codeine/APAP [Tylenol W/Codeine #3 tab] 1 tab PO Q6HP PRN 11/18/20 Dronabinol [Marinol] 2.5 mg PO BID 11/18/20 Finasteride [Proscar] 5 mg PO DAILY 11/18/20 Fluticasone/Umeclidin/Vilanter [Trelegy Ellipta 100-62.5-25] 1 puff IH DAILY 11/18/20 Furosemide [Lasix] 20 mg PO BIDL 11/18/20 Ipratropium/Albuterol Sulfate [Combivent Respimat Inhal Marshall] 1 puff IH Q6HP PRN 11/18/20 Ipratropium/Albuterol Sulfate [Iprat-Albut 0.5-3(2.5) mg/3 ml] 3 ml IH Q4HP PRN 11/18/20 L. Acidophilus/L.bulgaricus [Lactobacillus Tablet] 1 each PO BID 11/18/20 Melatonin [Melatonin*] 3 mg PO BEDTIME PRN 11/18/20 Metoprolol Tartrate [Lopressor] 12.5 mg PO BID 11/18/20 Mirtazapine [Remeron] 15 mg PO BEDTIME 11/18/20 Multivitamin [Multiple Vitamins] 1 each PO DAILY 11/18/20 Nicotine [Nicoderm] 1 patch TD DAILY 11/18/20 Nitroglycerin [Nitrostat] 0.4 mg SL SEECOM PRN 11/18/20 Povidone-Iodine [Povidone-Iodine 10% Top Soln] 1 appl TP DAILY 11/18/20 Sennosides [Senna] 8.6 mg PO BEDTIME 11/18/20 Tamsulosin [Flomax] 2 cap PO DAILY 11/18/20 Thiamine HCl [Vitamin B-1] 100 mg PO DAILY 11/18/20 Zinc 50 mg PO DAILY 11/18/20 guaiFENesin [Guaifenesin ER] 600 mg PO Q12HP PRN 11/18/20 - Past Medical/Surgical History Diabetic: No -: HTN -: 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 -: CAD with CABG, stents, pacemaker/defibrillator -: Chronic systolic congestive heart failure -: Hypertension -: Hyperlipidemia -: Severe PVD -: Chronic stenosis of the abdominal aorta -: CABG -: Stents -: Left BKA Psychosocial/ Personal History: [facility] - Family History Mother Medical History: Liver disease - Social History Smoking Status: Unknown if ever smoked Alcohol use: No CD- Drugs: No Caffeine use: Yes Place of Residence: [facility] Review of Systems General: Weakness, Malaise Respiratory: Shortness of Breath Physical Examination Temp Pulse Resp BP Pulse Ox 98 F 81 23 H 114/64 98 11/18/20 12:00 11/18/20 13:03 11/18/20 12:00 11/18/20 13:03 11/18/20 13:03 General: Alert, Oriented x3 HEENT: Atraumatic Neck: Supple Respiratory: Crackles/rales ( bilateral) Cardiovascular: No edema Laboratory Data (last 24 hrs) 11/17/20 20:40: PT 19.4 H, INR 1.68 11/17/20 20:40: WBC 6.30 D, Hgb 8.6 L, Hct 25.8 L D, Plt Count 168 11/17/20 20:40: Sodium 142, Potassium 3.7, BUN 16, Creatinine 0.65, Glucose 118 H, Magnesium 1.5 L, Total Bilirubin 0.6, AST 25, ALT 16, Alkaline Phosphatase 108 - Problems (1) Pneumonia Current Visit: No Status: Acute Plan: patient is 70 years of age terminal COPD recurrent lung infections admitted with worsening chest x-ray there is a loculated effusion on the right side so far is white count is normal start patient on levofloxacin and doxycycline he is at risk for Pseudomonas in Mr SA infection he has baseline hypoxemia hypercapnic in addition also has osteomyelitis patient has congestive heart failure reduce dose of Lasix overall prognosis is very poor Qualifiers: Pneumonia type: due to unspecified organism Laterality: right
[2020-11-18] MEDS: CODEINE 30MG/APAP 300MG TAB PO PRN ×2 (16:13→22:51)
[2020-11-18] MEDS: levoFLOXacin 750 MG TAB PO SCH (16:13)
[2020-11-18] MEDS ORDERED: ATORVASTATIN 80 MG TAB PO SCH (21:00)
--- NOTE | 2020-11-18 21:32 | P.PN ---
Subjective Date of Service: 11/18/20 Primary Care Provider: [facility] doctor Chief Complaint: COPD exacerbation Subjective: Improving (feels like he is breathing slightly better / more comfortably compared to initial presentation. still SOB/WALTERS, shallow breathing, feeling ill. pain of toes) Review of Systems 10-point ROS is otherwise unremarkable Physical Examination - Vital Signs Temperature: 97.0 F Blood Pressure: 123/75 Pulse: 78 Respirations: 16 Pulse Ox (%): 93 Assessment & Plan Physician Review Additional Text: Physical Exam General: Alert, appears ill, mild resp. distress HEENT: moist mucous membranes, sclera anicteric, normal conjunctiva Respiratory: Diminished, b/l Crackles/rales, Expiratory wheezes CV: 1+ pitting edema RLE, LBKA, paced rhythm Abd: soft, nontender, nondistended Musculoskeletal: No contractures, No erythema, No tenderness Integumentary: Arterial ulcer - Right great toe with necrotic tissue present, tender to palpation / sensation intact b/l feet Neurological: Normal speech, Normal strength at 5/5 x4 extr Problem List: Acute on chronic hypoxemic respiratory failure secondary to 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 Acute on chronic systolic congestive heart failure Marked hypoalbuminemia Right great toe arterial ulceration Atrial fibrillation on chronic anticoagulation therapy Hypertension Hypothyroidism CAD s/p CABG, stents, pacemaker defibrillator Severe PVD with chronic stenosis of the abdominal aorta at the level of the kidneys and chronic occlusion of the left common iliac artery -continue COPD treatment with steroids, nebs, inhalers -severe disease on CT chest -pulm consulted, sputum & blood cultures ordered -with component of acute CHF as well, continue diuresis, will back down on dose due to hypotension - cardiology consulted -continue home medications -x-ray pending for toe ulceration / eval for osteomyelitis, may need to obtain CT - pt with pacemaker and unable to obtain MRI here -continues antibiotics, eliquis -ID consulted for likely osteomyelitis VTE: eliquis Code: DNR Dispo: anticipate dc back to [facility] in ~48-72hrs Time Spent Managing Pts Care (In Minutes): 35
[2020-11-18] MEDS: DOXYCYCLINE 100 MG CAP PO SCH (21:51)
[2020-11-18] MEDS: MIRTAZAPINE 15 MG TAB PO SCH (21:51)
[2020-11-18] MEDS: ENSURE ENLIVE 237 ML CAN PO SCH (21:53)
[2020-11-18] MEDS: DOCUSATE NA 100 MG CAP PO SCH (21:53)
[2020-11-18] MEDS: ATORVASTATIN 40 MG TAB PO SCH (21:53)
[2020-11-19] MEDS: METHYLPREDNISOLONE 125 MG INJ IV SCH ×2 (00:06→10:14)
[2020-11-19] MEDS: ALBUTEROL 2.5 MG/3 ML NEB SOL NEB SCH ×4 (01:45→19:10)
[2020-11-19] MEDS: IPRATROPIUM BROM 0.5MG/2.5ML NEB SCH ×4 (01:45→19:10)
[2020-11-19] MEDS ORDERED: BUDESONIDE 0.5 MG/2 ML NEB NEB SCH (02:00)
[2020-11-19] MEDS: LEVOTHYROXINE SOD 0.075 MG TAB PO SCH (05:22)
[2020-11-19 06:39] LABS: Absolute Lymphocytes (CBC) 0.1 K/uL (0.7-4.9); Basophils % 0.1 % (0-1.3); Hematocrit 25.1 % (39.6-49.0); Lymphocytes % 1.7 % (15.3-44.8); MPV 8.4 fL (7.6-11.3); RBC Red Blood Cell Count 2.66 M/uL (4.33-5.43)
[2020-11-19 06:49] LABS: ALT/SGPT 13 U/L (12-78); AST/SGOT 12 U/L (15-37); Albumin 1.9 g/dL (3.4-5.0); Alkaline Phosphatase 84 U/L (45-117); BUN Blood Urea Nitrogen 14 mg/dL (7-18); Bicarbonate 30 mmol/L (21-32); Bilirubin Total 0.3 mg/dL (0.2-1.0); Glucose Level 142 mg/dL (74-106); Magnesium 1.8 mg/dL (1.8-2.4); Potassium 4.3 mmol/L (3.5-5.1); Protein, Total 5.4 g/dL (6.4-8.2); Sodium Level 142 mmol/L (136-145)
[2020-11-19] MEDS: ARFORMOTEROL TARTRATE 15 MCG/2 ML VIAL.NEB NEB SCH ×2 (08:00→20:00)
[2020-11-19 08:45] LABS: Blood Morphology Comment NOT SEEN (NOT SEEN); Platelet Estimate ADEQ
[2020-11-19] MEDS: MORPHINE 2 MG/ML SYR IV PRN ×2 (08:51→22:02)
[2020-11-19] MEDS: SACUBITRIL/VALSARTAN 24/26 MG TAB PO SCH ×2 (09:00→21:24)
[2020-11-19] MEDS ORDERED: levoFLOXacin 750 MG TAB PO SCH (09:00)
[2020-11-19] MEDS ORDERED: MAGNESIUM SULFATE 1 gm IVPB 1 GM/100 ML BAG IV ONE (09:00)
[2020-11-19] MEDS: MULTIVITAMIN TAB PO SCH (09:00)
[2020-11-19] MEDS: HOME MED 1 EA UNK (Fluticasone/Umeclidin/Vilanter [Trelegy Ellipta 100-62.5-25] Blst.W.Dev IH SCH (09:00)
[2020-11-19] MEDS: BUDESONIDE 0.5 MG/2 ML NEB NEB SCH ×2 (09:00→21:00)
[2020-11-19] MEDS: allopurinoL 100 MG TAB PO SCH (09:00)
[2020-11-19] MEDS: CLOPIDOGREL 75 MG TABLET PO SCH (09:00)
[2020-11-19] MEDS: ENSURE ENLIVE 237 ML CAN PO SCH ×2 (09:00→21:29)
[2020-11-19] MEDS: DRONABINOL 2.5 MG PO SCH ×2 (09:00→21:00)
[2020-11-19] MEDS: POVIDONE IODINE 10% TOP SCH (09:00)
--- NOTE | 2020-11-19 09:06 | RAD REPORT ---
EXAM DESCRIPTION: CT - Foot Right Wo Con - 11/19/2020 8:43 am CLINICAL HISTORY: Right foot pain and swelling. Soft tissue ulceration COMPARISON: November 18, 2020 x-ray TECHNIQUE: Computed coronal tomography right foot obtained with axial and sagittal reconstruction All CT scans are performed using dose optimization technique as appropriate and may include automated exposure control or mA/KV adjustment according to patient size. FINDINGS: Soft tissue swelling is present. No fracture or dislocation seen. No bony destructive lesions are visualized. No air is visualized within the tissues IMPRESSION: Soft tissue swelling involving the right foot may indicate cellulitis No evidence of osteomyelitis
--- NOTE | 2020-11-19 09:25 | RAD REPORT ---
EXAM DESCRIPTION: Elvi Single View11/19/2020 7:01 am CLINICAL HISTORY: Hypoxia COMPARISON: November 17, 2020 FINDINGS: Mild worsening in right basilar opacity. Right upper lobe opacity is mildly improved. Mild left lung opacities unchanged Large cystic mass left lung are unchanged. Small to moderate right pleural effusion. Heart is borderline enlarged. Pacemaker leads in place. Pos tsurgical changes involve the chest
[2020-11-19 09:50] LABS: Arterial Blood Carboxyhemoglob 1.1 % (0-1.5); Blood Gas Oxyhemoglobin 92.1 % (94-97); Blood O2 Saturation 93.8 % (92-98.5)
[2020-11-19] MEDS: FINASTERIDE 5 MG TAB PO SCH (10:11)
[2020-11-19] MEDS: CINACALCET HCL 30 MG TAB PO SCH (10:11)
[2020-11-19] MEDS: FLUCONAZOLE 100 MG TAB PO SCH (10:11)
[2020-11-19] MEDS: THIAMINE HCL 100 MG TABLET PO SCH (10:12)
[2020-11-19] MEDS: ASPIRIN EC 81 MG TAB PO SCH (10:12)
[2020-11-19] MEDS: METOPROLOL TAR 25 MG TAB PO SCH ×2 (10:12→21:25)
[2020-11-19] MEDS: ASCORBIC ACID 500 MG TABLET PO SCH (10:12)
[2020-11-19] MEDS: DOCUSATE NA 100 MG CAP PO SCH ×2 (10:12→21:26)
[2020-11-19] MEDS: LACTOBACILLUS/ACIDOPHILUS TAB PO SCH ×2 (10:12→21:26)
[2020-11-19] MEDS: ZINC SULFATE 220 MG CAP PO SCH (10:12)
[2020-11-19] MEDS: APIXABAN 2.5 MG TABLET PO SCH ×2 (10:12→21:27)
[2020-11-19] MEDS: NICOTINE 14 MG/PAT TD SCH (10:13)
[2020-11-19] MEDS: PANTOPRAZOLE 40MG TABLET PO SCH (10:13)
[2020-11-19] MEDS: DOXYCYCLINE 100 MG CAP PO SCH ×2 (10:13→21:27)
[2020-11-19] MEDS: TAMSULOSIN 0.4 MG SR CAP PO SCH (10:13)
[2020-11-19] MEDS: levoFLOXacin 750 MG TAB PO SCH (10:13)
[2020-11-19] MEDS: FUROSEMIDE 40 MG/4 ML VIAL IV SCH (10:14)
[2020-11-19] MEDS: DULERA 100/5 (MOMETASONE/FORMOTEROL) INHALER IH SCH ×2 (10:15→21:29)
--- NOTE | 2020-11-19 10:24 | P.PN ---
Subjective Date of Service: 11/19/20 Primary Care Provider: custodial doctor Chief Complaint: COPD exacerbation Subjective: Other (Chest pain and afib with brief RVR overnight. resolved. patient reports some anxiety as well - h/o panic attacks. on venturi mask, feels maybe slightly better today) Review of Systems 10-point ROS is otherwise unremarkable Physical Examination - Vital Signs Temperature: 97.3 F Blood Pressure: 138/74 Pulse: 75 Respirations: 16 Pulse Ox (%): 90 Assessment & Plan Physician Review Additional Text: Physical Exam General: Alert, cachectic HEENT: moist mucous membranes, sclera anicteric, normal conjunctiva Respiratory: Diminished, b/l Crackles/rales, mild expiratory wheezes CV: trace edema RLE, L BKA, paced rhythm Abd: soft, nontender, nondistended Integumentary: Arterial ulcer - Right great toe with necrotic tissue present, mild erythema, tender to palpation / sensation intact b/l feet Problem List: Acute on chronic hypoxemic respiratory failure secondary to 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 Acute on chronic systolic congestive heart failure Marked hypoalbuminemia Right great toe arterial ulceration Hypocalcemia Atrial fibrillation on chronic anticoagulation therapy Hypertension Hypothyroidism CAD s/p CABG, stents, pacemaker defibrillator Severe PVD with chronic stenosis of the abdominal aorta at the level of the kidneys and chronic occlusion of the left common iliac artery -continue COPD treatment with steroids, nebs, inhalers, severe disease on CT chest -pulm consulted, sputum & blood cultures ordered - antibiotics changed to levaquin and doxy on 11/18 -diuresed well, continue home regimen -x-ray negative for osteo of toes, unable to obtain MRI due to pacemaker, waiting for CT scan. -ID consulted for likely osteomyelitis -continues antibiotics, eliquis -hypocalcemia - 6.9 on AM labs, with albumin: 1.9, bringing corrected calcium ~8.6 which is low-normal. Pt on chronic sensipar, will hold for now -slow improvement, still requiring high level of oxygen supplementation -repeat ABG VTE: Eliquis Code: DNR Dispo: anticipate dc back to SNF in ~72hrs Time Spent Managing Pts Care (In Minutes): 35
--- NOTE | 2020-11-19 11:56 | P.PN ---
Subjective Date of Service: 11/19/20 Primary Care Provider: [facility] doctor Chief Complaint: COPD exacerbation Patient is not doing well still complaining of shortness of breath feeling very weak the cavitary pneumonia on the right side Review of Systems General: Weakness Respiratory: Cough, Shortness of Breath Physical Examination - Vital Signs Temperature: 97.3 F Blood Pressure: 138/74 Pulse: 75 Respirations: 16 Pulse Ox (%): 90 - Physical Exam General: Alert Respiratory: Clear to auscultation bilaterally, Expiratory wheezes Cardiovascular: No edema, Normal S1 S2 Gastrointestinal: Normal bowel sounds, Soft and benign Assessment & Plan - Problems (Diagnosis) (1) Pneumonia Current Visit: No Status: Acute Plan: Patient is 70-year-old admitted with cavitary pneumonia in the right upper lobe plan to check his sputums for [employer] treat him for with levofloxacin doxycycline possibly of Pseudomonas Mr SNOW also got a loculated effusion will requiring high levels of oxygen niece to be moved to an isolation room rule out tuberculosis vital signs stable Dc area of cavitation was noted in September with dizziness stable Qualifiers: Pneumonia type: due to unspecified organism Laterality: right
[2020-11-19] MEDS ORDERED: ENSURE HIGH PROTEIN 237 ML CAN PO SCH (12:00)
--- NOTE | 2020-11-19 12:33 | RAD REPORT ---
EXAM DESCRIPTION: CT - Thorax Wo Con - 11/19/2020 12:16 pm CLINICAL HISTORY: sob COMPARISON: September 2020 CT TECHNIQUE: Computed axial tomography of the chest was obtained. Contrast was not requested. All CT scans are performed using dose optimization technique as appropriate and may include automated exposure control or mA/KV adjustment according to patient size. FINDINGS: The evaluation of mediastinum, amber and vessels is limited secondary to lack of IV contras t administration. The right upper lobe pneumonia is without significant change in size from the prior CAT scan. The cav itary component has mildly increased in size. Small to moderate loculated right pleural effusion is without significant change Large left upper lobe cavitary lesion without significant change. Mild left lung opacities without significant change. COPD Coronary arterial calcifications are present. No significant mediastinal or hilar lymphadenopathy. IMPRESSION: The right upper lobe pneumonia is without significant change in size from the prior CAT scan. The cavitary component has mildly increased in size. Large left upper lobe cavitary lesion without change
[2020-11-19] MEDS: BUSPIRONE HCL 5 MG TABLET PO SCH ×2 (17:18→21:26)
[2020-11-19] MEDS: predniSONE 20 MG TAB PO SCH ×2 (17:18→21:27)
[2020-11-19] MEDS: ONDANSETRON 4 MG/2 ML VIAL IV PRN (19:43)
--- NOTE | 2020-11-19 20:29 | P.PN ---
Subjective Date of Service: 11/19/20 Primary Care Provider: [facility] doctor Chief Complaint: COPD exacerbation Subjective: No new changes, No C/O voiced Review of Systems General: Unremarkable Eyes: Unremarkable ENT: Unremarkable Respiratory: Wheezing Cardiovascular: Unremarkable Gastrointestinal: Unremarkable Genitourinary: Unremarkable Musculoskeletal: Other (left BKA) Integumentary: Other (arterial ulcer to right great toe and right second toe) Neurological: Unremarkable Physical Examination - Vital Signs Temperature: 97.3 F Blood Pressure: 117/74 Pulse: 77 Respirations: 24 Pulse Ox (%): 90 - Physical Exam General: Alert, In no apparent distress, Oriented x3, Cooperative HEENT: PERRLA, Mucous membr. moist/pink Neck: Supple Respiratory: Other (Diminished breath sounds, crackles ) Cardiovascular: No edema Gastrointestinal: Normal bowel sounds Musculoskeletal: No clubbing, No swelling, Other (Left BKA) Integumentary: Venous stasis ulcer (right great toe and second great toe ) Neurological: Normal speech, Normal affect Lymphatics: No axilla or inguinal lymphadenopathy Assessment And Plan - Plan Continue betadine application to both arterial wounds and wrap with kerlix. Awaiting arterial Doppler to assess extensiveness of peripheral vascular disease. CT shows no evidence of osteomyelitis. Patient may need consultation by a surgeon. Currently on Levaquin and Doxy for lung infection Blood cultures pending urine cultures pending Medical management per primary team Continue to monitor CBC and BMP Continue to monitor for signs and symptoms of infection Plan of care discussed with Dr. Garcia Thank you for consultation Discharge Plan: Correction Plan to discharge in: Greater than 2 days Physician Review Additional Text: Physical Exam General: Alert, cachectic HEENT: moist mucous membranes, sclera anicteric, normal conjunctiva Respiratory: Diminished, b/l Crackles/rales, mild expiratory wheezes CV: trace edema RLE, L BKA, paced rhythm Abd: soft, nontender, nondistended Integumentary: Arterial ulcer - Right great toe with necrotic tissue present, mild erythema, tender to palpation / sensation intact b/l feet Problem List: Acute on chronic hypoxemic respiratory failure secondary to 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 Acute on chronic systolic congestive heart failure Marked hypoalbuminemia Right great toe arterial ulceration Hypocalcemia Atrial fibrillation on chronic anticoagulation therapy Hypertension Hypothyroidism CAD s/p CABG, stents, pacemaker defibrillator Severe PVD with chronic stenosis of the abdominal aorta at the level of the kidneys and chronic occlusion of the left common iliac artery -continue COPD treatment with steroids, nebs, inhalers, severe disease on CT chest -pulm consulted, sputum & blood cultures ordered - antibiotics changed to levaquin and doxy on 11/18 -diuresed well, continue home regimen -x-ray negative for osteo of toes, unable to obtain MRI due to pacemaker, waiting for CT scan. -ID consulted for likely osteomyelitis -continues antibiotics, eliquis -hypocalcemia - 6.9 on AM labs, with albumin: 1.9, bringing corrected calcium ~8.6 which is low-normal. Pt on chronic sensipar, will hold for now -slow improvement, still requiring high level of oxygen supplementation -repeat ABG VTE: Eliquis Code: DNR Dispo: anticipate dc back to SNF in ~72hrs Time Spent Managing PTS Care (In Minutes): 35
[2020-11-19] MEDS: ATORVASTATIN 40 MG TAB PO SCH (21:28)
[2020-11-19] MEDS: MIRTAZAPINE 15 MG TAB PO SCH (21:28)
[2020-11-19] MEDS: MELATONIN 3 MG TABLET PO PRN (22:02)
[2020-11-20 01:14] VITALS: BMI 16.4
[2020-11-20] MEDS: IPRATROPIUM BROM 0.5MG/2.5ML NEB SCH ×4 (02:00→19:40)
[2020-11-20] MEDS: ALBUTEROL 2.5 MG/3 ML NEB SOL NEB SCH ×4 (02:00→19:40)
[2020-11-20] MEDS: LEVOTHYROXINE SOD 0.075 MG TAB PO SCH (06:35)
[2020-11-20 06:43] LABS: Absolute Lymphocytes (CBC) 0.2 K/uL (0.7-4.9); Basophils % 0.1 % (0-1.3); Hematocrit 26.1 % (39.6-49.0); MPV 8.3 fL (7.6-11.3); RBC Red Blood Cell Count 2.79 M/uL (4.33-5.43)
[2020-11-20 07:02] LABS: ALT/SGPT 13 U/L (12-78); AST/SGOT 13 U/L (15-37); Alkaline Phosphatase 87 U/L (45-117); BUN Blood Urea Nitrogen 24 mg/dL (7-18); Bicarbonate 34 mmol/L (21-32); Bilirubin Total 0.2 mg/dL (0.2-1.0); Glucose Level 139 mg/dL (74-106); Magnesium 1.9 mg/dL (1.8-2.4); Potassium 5.4 mmol/L (3.5-5.1); Protein, Total 5.5 g/dL (6.4-8.2); Sodium Level 145 mmol/L (136-145)
[2020-11-20] MEDS: ARFORMOTEROL TARTRATE 15 MCG/2 ML VIAL.NEB NEB SCH ×2 (07:34→19:40)
[2020-11-20] MEDS: allopurinoL 100 MG TAB PO SCH (09:00)
[2020-11-20] MEDS: BUDESONIDE 0.5 MG/2 ML NEB NEB SCH (09:00)
[2020-11-20] MEDS: HOME MED 1 EA UNK (Fluticasone/Umeclidin/Vilanter [Trelegy Ellipta 100-62.5-25] Blst.W.Dev IH SCH (09:00)
[2020-11-20] MEDS: DRONABINOL 2.5 MG PO SCH ×2 (09:00→20:31)
[2020-11-20] MEDS: POVIDONE IODINE 10% TOP SCH (09:00)
[2020-11-20] MEDS: predniSONE 20 MG TAB PO SCH ×2 (09:16→21:50)
[2020-11-20] MEDS: FINASTERIDE 5 MG TAB PO SCH (09:16)
[2020-11-20] MEDS: DOCUSATE NA 100 MG CAP PO SCH ×2 (09:17→20:32)
[2020-11-20] MEDS: NICOTINE 14 MG/PAT TD SCH (09:17)
[2020-11-20] MEDS: TAMSULOSIN 0.4 MG SR CAP PO SCH (09:17)
[2020-11-20] MEDS: MULTIVITAMIN TAB PO SCH (09:17)
[2020-11-20] MEDS: levoFLOXacin 750 MG TAB PO SCH (09:17)
[2020-11-20] MEDS: DOXYCYCLINE 100 MG CAP PO SCH ×2 (09:17→21:50)
[2020-11-20] MEDS: THIAMINE HCL 100 MG TABLET PO SCH (09:18)
[2020-11-20] MEDS: FUROSEMIDE 40 MG/4 ML VIAL IV SCH (09:18)
[2020-11-20] MEDS: LACTOBACILLUS/ACIDOPHILUS TAB PO SCH ×2 (09:18→20:34)
[2020-11-20] MEDS: CLOPIDOGREL 75 MG TABLET PO SCH (09:18)
[2020-11-20] MEDS: METOPROLOL TAR 25 MG TAB PO SCH ×2 (09:18→20:30)
[2020-11-20] MEDS: APIXABAN 2.5 MG TABLET PO SCH ×2 (09:18→21:50)
[2020-11-20] MEDS: PANTOPRAZOLE 40MG TABLET PO SCH (09:19)
[2020-11-20] MEDS: BUSPIRONE HCL 5 MG TABLET PO SCH ×2 (09:19→21:50)
[2020-11-20] MEDS: ZINC SULFATE 220 MG CAP PO SCH (09:19)
[2020-11-20] MEDS: ASCORBIC ACID 500 MG TABLET PO SCH (09:19)
[2020-11-20] MEDS: ENSURE ENLIVE 237 ML CAN PO SCH ×2 (09:20→20:34)
[2020-11-20] MEDS: DULERA 100/5 (MOMETASONE/FORMOTEROL) INHALER IH SCH ×2 (09:20→20:34)
[2020-11-20] MEDS: SACUBITRIL/VALSARTAN 24/26 MG TAB PO SCH ×2 (10:50→21:00)
[2020-11-20] MEDS: CODEINE 30MG/APAP 300MG TAB PO PRN ×2 (12:55→20:28)
--- NOTE | 2020-11-20 13:36 | P.PN ---
Subjective Date of Service: 11/20/20 Primary Care Provider: [facility] doctor Chief Complaint: COPD exacerbation Subjective: Improving (Feels his breathing is improved today, had a good bowel movement yesterday, had some slight blood-tinged urine yesterday as well which is cleared up. On 4 L nasal cannula) Review of Systems 10-point ROS is otherwise unremarkable Physical Examination - Vital Signs Temperature: 97.5 F Blood Pressure: 108/62 Pulse: 77 Respirations: 18 Pulse Ox (%): 98 Assessment & Plan Physician Review Additional Text: Physical Exam General: Alert, cachectic HEENT: moist mucous membranes, sclera anicteric, normal conjunctiva Respiratory: Diminished, b/l Crackles at bases CV: trace edema RLE, L BKA, paced rhythm Abd: soft, nontender, nondistended Integumentary: Arterial ulcer - Right great toe with necrotic tissue present, tender to palpation, sensation intact b/l feet Problem List: Acute on chronic hypoxemic respiratory failure secondary to 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 Acute on chronic systolic congestive heart failure Acute cystitis - fungal Marked hypoalbuminemia Right great toe arterial ulceration Hypocalcemia Atrial fibrillation on chronic anticoagulation therapy Hypertension Hypothyroidism CAD s/p CABG, stents, pacemaker defibrillator Severe PVD with chronic stenosis of the abdominal aorta at the level of the kidneys and chronic occlusion of the left common iliac artery -continue COPD treatment with steroids, nebs, inhalers, severe disease on CT chest -pulm consulted, sputum & blood cultures ordered - antibiotics changed to levaquin and doxy on 11/18, TB rule out -diuresed well, continue home regimen -x-ray and CT negative for Osteomyelitis, awaiting arterial dopplers to assess blood flow -continues antibiotics, eliquis -hypocalcemia - 6.9 on AM labs, with albumin: 1.9, bringing corrected calcium ~8.6 yesterday, held sensipar, slight improvement -pt slowly improving, need to r/o TB -fungal cystitsi - continue diflucan -hematuria - brief/resolved, likely from trauma of roca when transferred to isolation room, aspirin dc'd, continue eliquis and plavix VTE: Eliquis Code: DNR Dispo: anticipate dc back to SNF in ~48hrs Time Spent Managing Pts Care (In Minutes): 35
--- NOTE | 2020-11-20 13:41 | RAD REPORT ---
EXAM DESCRIPTION: US - Lower Extremity Arterial Bilat - 11/20/2020 12:38 pm CLINICAL HISTORY: PVD Claudication, pain COMPARISON: Lower Extremity Arterial Bilat dated 10/02/2020 TECHNIQUE: Bilateral lower extremity arterial Doppler examination was performed with waveform tracin g and ankle brachial pressure measurements. FINDINGS: The patient refused ultrasound of the left leg. Moderate hard plaquing involves the right lower extremity arterial system. Triphasic waveforms are seen throughout the right lower extremity arterial system to the level of pos terior tibial artery. The dorsalis pedis artery is blunted. No complete occlusions identified. IMPRESSION: Blunted dorsalis pedis artery waveform is noted on the right suggesting moderate distal peripheral disease. The patient refused left leg assessment.
[2020-11-20] MEDS ORDERED: BUDESONIDE 0.5 MG/2 ML NEB NEB SCH (20:00)
--- NOTE | 2020-11-20 20:18 | PN ---
Date of Progress Note: 11/20/2020 Subjective: The patient was seen by bedside. He is doing much better. Breathing is easier. No dist ress. Review of Systems: No chest pain anymore. Minimal shortness of breath. Minimal cough. No nausea, vomiting, diarrhea. No abdominal pain. No history of urinary urgency. All other systems reviewed are negative. Physical Examination: Vital Signs: Reviewed. Temperature is 97.5, blood pressure is 108/62, pulse 77, breathing 18 breath s per minute. Head and Neck: Pupils are equal, reactive to light. Intact eye movements. No JVD. No cervical lym phadenopathy. Neck: Supple. Thyroid is not enlarged. Lungs: Decreased breathing sounds bilaterally with scattered wheezing. No accessory muscle use or m uscle retraction. Heart: Regular. No extra sounds. Abdomen: Soft, nontender. Bowel sounds positive. No organomegaly. No masses or hernia. No rigidi ty or rebound. Extremities: No clubbing or cyanosis. Intact pulses. Neuro: Alert, awake. No acute focal deficits appreciated. Lymph Nodes: No cervical or inguinal lymphadenopathy. Assessment And Recommendation: Acute on chronic hypoxic respiratory failure due to end-stage chronic obstructive pulmonary disease. May be a mild component of acute congestive heart failure, but I bel ieve his problem is more pulmonary in origin. He is doing much better off BiPAP today. From the car diac standpoint, I agree with the current plan with diuresis. The patient may be switched to oral fu rosemide 40 mg twice a day and carefully monitor his status. The patient is being managed for his en d-stage COPD by Pulmonary. Thank you for the consult. /DANNY Voice ID: [id number] Report ID: [id number]
[2020-11-20] MEDS: MELATONIN 3 MG TABLET PO PRN (21:50)
[2020-11-20] MEDS: MIRTAZAPINE 15 MG TAB PO SCH (21:50)
[2020-11-20] MEDS: ATORVASTATIN 40 MG TAB PO SCH (21:50)
[2020-11-20] MEDS: MORPHINE 2 MG/ML SYR IV PRN (23:55)
[2020-11-21] MEDS: IPRATROPIUM BROM 0.5MG/2.5ML NEB SCH ×4 (02:00→19:50)
[2020-11-21] MEDS: ALBUTEROL 2.5 MG/3 ML NEB SOL NEB SCH ×4 (02:00→19:50)
[2020-11-21] MEDS: LEVOTHYROXINE SOD 0.075 MG TAB PO SCH (05:44)
[2020-11-21] MEDS: SACUBITRIL/VALSARTAN 24/26 MG TAB PO SCH ×2 (05:44→20:39)
[2020-11-21 06:17] LABS: Absolute Lymphocytes (CBC) 0.2 K/uL (0.7-4.9); Basophils % 0.1 % (0-1.3); Hematocrit 24.7 % (39.6-49.0); Lymphocytes % 2.3 % (15.3-44.8); MPV 8.2 fL (7.6-11.3); RBC Red Blood Cell Count 2.64 M/uL (4.33-5.43)
[2020-11-21 06:29] LABS: ALT/SGPT 12 U/L (12-78); AST/SGOT 11 U/L (15-37); Alkaline Phosphatase 86 U/L (45-117); BUN Blood Urea Nitrogen 25 mg/dL (7-18); Bicarbonate 35 mmol/L (21-32); Bilirubin Total 0.2 mg/dL (0.2-1.0); Glucose Level 167 mg/dL (74-106); Magnesium 1.7 mg/dL (1.8-2.4); Protein, Total 5.3 g/dL (6.4-8.2); Sodium Level 146 mmol/L (136-145)
[2020-11-21] MEDS ORDERED: MAGNESIUM SULFATE 1 gm IVPB 1 GM/100 ML BAG IV ONE (07:03)
[2020-11-21] MEDS: ARFORMOTEROL TARTRATE 15 MCG/2 ML VIAL.NEB NEB SCH ×2 (07:33→19:50)
[2020-11-21] MEDS: BUDESONIDE 0.5 MG/2 ML NEB NEB SCH ×2 (07:33→19:50)
[2020-11-21] MEDS: CLOPIDOGREL 75 MG TABLET PO SCH ×2 (08:39→08:44)
[2020-11-21] MEDS: MULTIVITAMIN TAB PO SCH (08:40)
[2020-11-21] MEDS: DOCUSATE NA 100 MG CAP PO SCH ×2 (08:40→20:40)
[2020-11-21] MEDS: ZINC SULFATE 220 MG CAP PO SCH (08:40)
[2020-11-21] MEDS: FINASTERIDE 5 MG TAB PO SCH (08:40)
[2020-11-21] MEDS: PANTOPRAZOLE 40MG TABLET PO SCH (08:41)
[2020-11-21] MEDS: APIXABAN 2.5 MG TABLET PO SCH (08:44)
[2020-11-21] MEDS: DOXYCYCLINE 100 MG CAP PO SCH ×2 (08:44→20:39)
[2020-11-21] MEDS: predniSONE 20 MG TAB PO SCH ×2 (08:44→20:41)
[2020-11-21] MEDS: METOPROLOL TAR 25 MG TAB PO SCH ×2 (08:44→20:42)
[2020-11-21] MEDS: TAMSULOSIN 0.4 MG SR CAP PO SCH (08:44)
[2020-11-21] MEDS: THIAMINE HCL 100 MG TABLET PO SCH (08:44)
[2020-11-21] MEDS: POVIDONE IODINE 10% TOP SCH (08:44)
[2020-11-21] MEDS: BUSPIRONE HCL 5 MG TABLET PO SCH ×2 (08:46→20:40)
[2020-11-21] MEDS: ASCORBIC ACID 500 MG TABLET PO SCH (08:46)
[2020-11-21] MEDS: FUROSEMIDE 20 MG TABLET PO SCH ×2 (08:46→16:14)
[2020-11-21] MEDS: FLUCONAZOLE 100 MG TAB PO SCH (08:47)
[2020-11-21] MEDS: DRONABINOL 2.5 MG PO SCH ×2 (08:47→20:41)
[2020-11-21] MEDS: LACTOBACILLUS/ACIDOPHILUS TAB PO SCH (08:47)
[2020-11-21] MEDS: NICOTINE 14 MG/PAT TD SCH (08:48)
[2020-11-21] MEDS: HOME MED 1 EA UNK (Fluticasone/Umeclidin/Vilanter [Trelegy Ellipta 100-62.5-25] Blst.W.Dev IH SCH (08:48)
[2020-11-21] MEDS: levoFLOXacin 750 MG TAB PO SCH (08:48)
[2020-11-21] MEDS: ENSURE ENLIVE 237 ML CAN PO SCH ×2 (08:51→20:41)
[2020-11-21] MEDS: DULERA 100/5 (MOMETASONE/FORMOTEROL) INHALER IH SCH ×2 (08:52→20:41)
--- NOTE | 2020-11-21 08:56 | EKG ---
Test Date: 2020-11-20 Test Time: 22:02:50 Sales Floor Team Leader: PETAR MEASUREMENT RESULTS: Intervals: Rate: 80 OR: QRSD: 102 QT: 426 QTc: 491 Dawson: P: OR: QRS: 85 T: 260 INTERPRETIVE STATEMENTS: Demand pacemaker, interpretation is based on intrinsic rhythm Atrial fibrillation with premature ventricular or aberrantly conducted complexes T wave abnormality, consider inferior ischemia or digitalis effect Prolonged QT Abnormal ECG Compared to ECG 11/18/2020 21:34:27 Ventricular premature complex(es) now present T-wave abnormality now present Possible ischemia now present Prolonged QT interval now present Myocardial infarct finding no longer present Electronically Signed On 11-21-20 08:55:11 CDT by William Jefferson
--- NOTE | 2020-11-21 08:58 | EKG ---
Test Date: 2020-11-18 Test Time: 21:34:27 Graphic Arts Instructor: PETAR MEASUREMENT RESULTS: Intervals: Rate: 120 ME: QRSD: 94 QT: 342 QTc: 483 Omega: P: ME: QRS: 75 T: -72 INTERPRETIVE STATEMENTS: Atrial fibrillation with rapid ventricular response Possible Inferior infarct, age undetermined Abnormal ECG Compared to ECG 11/18/2020 11:34:34 Sinus rhythm no longer present Atrial premature complex(es) no longer present Myocardial infarct finding still present Electronically Signed On 11-21-20 08:55:29 CDT by William Jefferson
[2020-11-21] MEDS: allopurinoL 100 MG TAB PO SCH (09:00)
[2020-11-21] MEDS: CODEINE 30MG/APAP 300MG TAB PO PRN ×2 (09:04→23:16)
--- NOTE | 2020-11-21 09:59 | P.PN ---
Subjective Date of Service: 11/21/20 Primary Care Provider: long term doctor Chief Complaint: COPD exacerbation Subjective: No new changes (He feels about the same as yesterday, slightly more fatigued today. Dry cough, nonproductive. Feels weak Desaturates with movement to bathroom Overnight with brief run A. fib again, chest pain, trop negative) Review of Systems 10-point ROS is otherwise unremarkable Physical Examination - Vital Signs Temperature: 97.4 F Blood Pressure: 139/76 Pulse: 63 Respirations: 16 Pulse Ox (%): 97 Assessment & Plan Physician Review Additional Text: Physical Exam General: Alert, cachectic, mild distress HEENT: moist mucous membranes, sclera anicteric, normal conjunctiva Respiratory: Diminished, b/l Crackles at bases, tachypneic ~30, spO2: 82 on 4 L (just rearranged himself) CV: no edema RLE, L BKA, paced rhythm Abd: soft, nontender, nondistended Integumentary: Arterial ulcer - Right great toe with necrotic tissue present, tender to palpation, sensation intact b/l feet roca in place Problem List: Acute on chronic hypoxemic respiratory failure secondary to 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 Acute on chronic systolic congestive heart failure Acute cystitis - fungal Marked hypoalbuminemia Right great toe arterial ulceration Hypocalcemia Atrial fibrillation on chronic anticoagulation therapy Hypertension Hypothyroidism CAD s/p CABG, stents, pacemaker defibrillator Severe PVD with chronic stenosis of the abdominal aorta at the level of the kidneys and chronic occlusion of the left common iliac artery -continue COPD treatment with steroids, nebs, inhalers, severe disease on CT chest -pulm consulted, sputum & blood cultures ordered - antibiotics changed to levaquin and doxy on 11/18, TB rule out -diuresed well, continue home regimen -x-ray and CT negative for Osteomyelitis, awaiting arterial dopplers to assess blood flow -continues antibiotics, eliquis -hypocalcemia - 6.9 on AM labs, with albumin: 2.9, bringing corrected calcium ~8.5 or so, sensipar has been held for 2 days (last received 11/19) -will give small PO replacement since pt has had 2 short runs of afib -fungal cystitis - continue diflucan -hematuria - only blood-tinged, brief/resolved < 24hrs, likely from trauma of roca when transferred to isolation room, aspirin dc'd, continue eliquis and plavix -pt reportedly came from SNF with roca catheter -PT consulted VTE: Eliquis Code: DNR Dispo: anticipate dc back to SNF in ~24-48hrs Time Spent Managing Pts Care (In Minutes): 35
[2020-11-21] MEDS: CALCIUM CARBONATE 500 MG TAB PO SCH ×2 (10:42→23:01)
--- NOTE | 2020-11-21 12:42 | P.PN ---
Subjective Date of Service: 11/21/20 Primary Care Provider: snf doctor Chief Complaint: Pneumonia Patient is not doing well he still very short of breath very weak Review of Systems General: Weakness Respiratory: Shortness of Breath Physical Examination - Vital Signs Temperature: 97.4 F Blood Pressure: 139/76 Pulse: 63 Respirations: 16 Pulse Ox (%): 100 - Physical Exam General: Alert, Moderate distress Respiratory: Expiratory wheezes Cardiovascular: No edema, Normal S1 S2 Assessment & Plan - Problems (Diagnosis) (1) Pneumonia Current Visit: No Status: Acute Plan: Patient admitted with pneumonia I suspect he has severe COPD with inflammatory changes will plan to do a bronchoscopy to rule out tuberculosis he has got a cavitary lesion in the l right upper low chemistries reviewed vital signs stable will have to hold patient's Plavix and Eliquis for bronchoscopy on sister do a quick lavage to rule out tuberculosis patient is not coughing up any phlegm he has got no white count patient is paced Qualifiers: Pneumonia type: due to unspecified organism Laterality: right
[2020-11-21] MEDS: MORPHINE 2 MG/ML SYR IV PRN (15:22)
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
[2020-11-21] MEDS: ATORVASTATIN 40 MG TAB PO SCH (20:40)
[2020-11-21] MEDS: MIRTAZAPINE 15 MG TAB PO SCH (20:40)
[2020-11-21] MEDS: GUAIFENESIN 600 MG SA TAB PO PRN (20:42)
[2020-11-22] MEDS: IPRATROPIUM BROM 0.5MG/2.5ML NEB SCH ×4 (02:00→21:40)
[2020-11-22] MEDS: ALBUTEROL 2.5 MG/3 ML NEB SOL NEB SCH ×4 (02:00→20:00)
[2020-11-22 05:28] LABS: Absolute Lymphocytes (CBC) 0.2 K/uL (0.7-4.9); Basophils % 0.3 % (0-1.3); Hematocrit 26.4 % (39.6-49.0); Lymphocytes % 2.3 % (15.3-44.8); MPV 8.1 fL (7.6-11.3)
[2020-11-22 05:54] LABS: ALT/SGPT 10 U/L (12-78); AST/SGOT 11 U/L (15-37); Albumin 2.1 g/dL (3.4-5.0); Alkaline Phosphatase 86 U/L (45-117); BUN Blood Urea Nitrogen 35 mg/dL (7-18); Bicarbonate 36 mmol/L (21-32); Bilirubin Total 0.2 mg/dL (0.2-1.0); Glucose Level 188 mg/dL (74-106); Magnesium 1.8 mg/dL (1.8-2.4); Phosphorus 2.7 mg/dL (2.5-4.9); Potassium 4.4 mmol/L (3.5-5.1); Protein, Total 5.3 g/dL (6.4-8.2); Sodium Level 144 mmol/L (136-145)
[2020-11-22] MEDS: LEVOTHYROXINE SOD 0.075 MG TAB PO SCH (06:21)
[2020-11-22] MEDS ORDERED: MAGNESIUM SULFATE 1 gm IVPB 1 GM/100 ML BAG IV ONE (06:23)
[2020-11-22] MEDS: ARFORMOTEROL TARTRATE 15 MCG/2 ML VIAL.NEB NEB SCH ×2 (08:00→20:00)
[2020-11-22] MEDS: BUDESONIDE 0.5 MG/2 ML NEB NEB SCH ×2 (08:00→20:00)
--- NOTE | 2020-11-22 08:26 | ECHO ---
HEIGHT: 5 ft 7 in WEIGHT: 105 lb 0 oz DATE OF STUDY: 11/21/[address]: Ge Ma 2-DIMENSIONAL: YES M.MODE: YES DOPPLER: YES COLOR FLOW: YES TDS: NO PORTABLE: NO DEFINITY: NO BUBBLE STUDY: NO DIAGNOSIS: COPD, ELEVATED TROPONIN CARDIAC HISTORY: CATHERIZATION: YES SURGERY: YES PROSTHETIC VALVE: NO PACEMAKER: YES MEASUREMENTS (cm) DIASTOLIC (NORMALS) SYSTOLIC (NORMALS) IVSd 0.9 (0.6-1.2) LA Diam 2.9 (1.9-4.0) LVEF 23% LVIDd 5.3 (3.5-5.7) LVIDs 4.7 (2.0-3.5) %FS 11% LVPWd 0.9 (0.6-1.2) Ao Diam 2.7 (2.0-3.7) 2 DIMENSIONAL ASSESSMENT: RIGHT ATRIUM: NORMAL LEFT ATRIUM: NORMAL RIGHT VENTRICLE: NORMAL LEFT VENTRICLE: NORMAL SIZE TRICUSPID VALVE: NORMAL MITRAL VALVE: MITRAL ANNULAR CALCIFICATION PULMONIC VALVE: NORMAL AORTIC VALVE: SCLEROSIS PERICARDIAL EFFUSION: NONE AORTIC ROOT: NORMAL LEFT VENTRICULAR WALL MOTION: SEVERE GLOBAL HYPOKINESIS. DOPPLER/COLOR FLOW: MODERATE TRICUSPID AND MITRAL REGURGITATION. COMMENTS: MODERATE TRICUSPID AND MITRAL REGURGITATION. NORMAL RIGHT VENTRICULAR SYSTOLIC PRESSURE. SEVERE GLOBAL HYPOKINESIS. LEFT VENTRICULAR EJECTION FRACTION 23%. AORTIC SCLEROSIS. TECHNOLOGIST: Kanchan ASKEW
[2020-11-22] MEDS: allopurinoL 100 MG TAB PO SCH (09:00)
[2020-11-22] MEDS: ENSURE ENLIVE 237 ML CAN PO SCH ×2 (09:00→21:00)
[2020-11-22] MEDS: DRONABINOL 2.5 MG PO SCH ×2 (09:00→20:59)
[2020-11-22] MEDS: POVIDONE IODINE 10% TOP SCH (09:00)
[2020-11-22] MEDS: DULERA 100/5 (MOMETASONE/FORMOTEROL) INHALER IH SCH ×2 (09:00→21:00)
[2020-11-22] MEDS: HOME MED 1 EA UNK (Fluticasone/Umeclidin/Vilanter [Trelegy Ellipta 100-62.5-25] Blst.W.Dev IH SCH (09:00)
[2020-11-22] MEDS: FLUCONAZOLE 100 MG TAB PO SCH (09:49)
[2020-11-22] MEDS: levoFLOXacin 750 MG TAB PO SCH (09:49)
[2020-11-22] MEDS: PANTOPRAZOLE 40MG TABLET PO SCH (09:49)
[2020-11-22] MEDS: LACTOBACILLUS/ACIDOPHILUS TAB PO SCH ×2 (09:49→20:54)
[2020-11-22] MEDS: TAMSULOSIN 0.4 MG SR CAP PO SCH (09:49)
[2020-11-22] MEDS: MULTIVITAMIN TAB PO SCH (09:50)
[2020-11-22] MEDS: ASCORBIC ACID 500 MG TABLET PO SCH (09:50)
[2020-11-22] MEDS: DOXYCYCLINE 100 MG CAP PO SCH ×2 (09:50→20:51)
[2020-11-22] MEDS: DOCUSATE NA 100 MG CAP PO SCH ×2 (09:50→20:59)
[2020-11-22] MEDS: ZINC SULFATE 220 MG CAP PO SCH (09:50)
[2020-11-22] MEDS: THIAMINE HCL 100 MG TABLET PO SCH (09:50)
[2020-11-22] MEDS: FUROSEMIDE 20 MG TABLET PO SCH ×2 (09:50→16:38)
[2020-11-22] MEDS: BUSPIRONE HCL 5 MG TABLET PO SCH ×2 (09:50→20:57)
[2020-11-22] MEDS: METOPROLOL TAR 25 MG TAB PO SCH ×2 (09:51→20:53)
[2020-11-22] MEDS: predniSONE 20 MG TAB PO SCH ×2 (09:51→20:55)
[2020-11-22] MEDS: FINASTERIDE 5 MG TAB PO SCH (09:51)
[2020-11-22] MEDS: SACUBITRIL/VALSARTAN 24/26 MG TAB PO SCH ×2 (09:52→20:54)
[2020-11-22] MEDS: NICOTINE 14 MG/PAT TD SCH (09:55)
[2020-11-22] MEDS: CODEINE 30MG/APAP 300MG TAB PO PRN ×2 (10:13→20:50)
[2020-11-22] MEDS: CALCIUM CARBONATE 500 MG TAB PO SCH ×2 (10:14→20:53)
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
--- NOTE | 2020-11-22 11:06 | RAD REPORT ---
EXAM DESCRIPTION: Elvi Single View11/22/2020 10:56 am CLINICAL HISTORY: Pneumonia COMPARISON: November 19, 2017 FINDINGS: Right pleural effusion appears mildly diminished in size Right upper lobe cavitary pneumonia may be minimally improved. Left upper lobe cavitary lesion unchanged. Mild left lung opacities are unchanged. Heart remains enlarged. Postsurgical changes involve the chest. Pacemaker leads in place
--- NOTE | 2020-11-22 13:30 | P.PN ---
Subjective Date of Service: 11/22/20 Primary Care Provider: correction doctor Chief Complaint: Pneumonia Patient complaining of abdominal discomfort. Otherwise he is stable on oxygen by nasal cannula. He has been afebril. Physical Examination - Vital Signs Temperature: 97.8 F Blood Pressure: 121/67 Pulse: 63 Respirations: 18 Pulse Ox (%): 100 - Physical Exam General: Alert, In no apparent distress, Oriented x3 HEENT: Mucous membr. moist/pink Neck: Supple, JVD not distended Respiratory: Diminished (Bilateral) Cardiovascular: No edema, Regular rate/rhythm, Normal S1 S2 Gastrointestinal: Normal bowel sounds, Soft and benign, Non-distended Musculoskeletal: Other (Dry Gangrene-right great toe) Integumentary: No rashes Neurological: Normal strength at 5/5 x4 extr, Cranial nerves 3-12 intact Assessment And Plan Physician Review Additional Text: Physical Exam General: Alert, cachectic, mild distress HEENT: moist mucous membranes, sclera anicteric, normal conjunctiva Respiratory: Diminished, b/l Crackles at bases, tachypneic ~30, spO2: 82 on 4 L (just rearranged himself) CV: no edema RLE, L BKA, paced rhythm Abd: soft, nontender, nondistended Integumentary: Arterial ulcer - Right great toe with necrotic tissue present, tender to palpation, sensation intact b/l feet roca in place Problem List: Acute on chronic hypoxemic respiratory failure secondary to 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 Acute on chronic systolic congestive heart failure Acute cystitis - fungal Marked hypoalbuminemia Right great toe arterial ulceration Hypocalcemia Atrial fibrillation on chronic anticoagulation therapy Hypertension Hypothyroidism CAD s/p CABG, stents, pacemaker defibrillator Severe PVD with chronic stenosis of the abdominal aorta at the level of the kidneys and chronic occlusion of the left common iliac artery -continue COPD treatment with steroids, nebs, inhalers, severe disease on CT chest -pulm consulted, sputum & blood cultures ordered - antibiotics changed to levaquin and doxy on 11/18, TB rule out. Quantiferon gold test ordered to rule out TB. -diuresed well, continue home regimen -x-ray and CT negative for Osteomyelitis, awaiting arterial dopplers to assess blood flow -continues antibiotics, eliquis -hypocalcemia - replete calcium as needed. -fungal cystitis - continue diflucan -hematuria - only blood-tinged, brief/resolved < 24hrs, likely from trauma of roca when transferred to isolation room, aspirin dc'd, continue eliquis and plavix. Urine remain clear -pt reportedly came from SNF with roca catheter -PT consulted VTE: Eliquis Code: DNR
[2020-11-22] MEDS: ONDANSETRON 4 MG/2 ML VIAL IV PRN (19:39)
[2020-11-22] MEDS: MELATONIN 3 MG TABLET PO PRN (20:52)
[2020-11-22] MEDS: ATORVASTATIN 40 MG TAB PO SCH (20:55)
[2020-11-22] MEDS: MIRTAZAPINE 15 MG TAB PO SCH (20:57)
[2020-11-23] MEDS: IPRATROPIUM BROM 0.5MG/2.5ML NEB SCH ×4 (02:00→20:05)
[2020-11-23] MEDS: ALBUTEROL 2.5 MG/3 ML NEB SOL NEB SCH ×2 (02:00→09:18)
[2020-11-23 05:42] LABS: Absolute Lymphocytes (CBC) 0.2 K/uL (0.7-4.9); Basophils % 0.2 % (0-1.3); Hematocrit 24.7 % (39.6-49.0); Lymphocytes % 2.8 % (15.3-44.8); RBC Red Blood Cell Count 2.66 M/uL (4.33-5.43)
[2020-11-23] MEDS: LEVOTHYROXINE SOD 0.075 MG TAB PO SCH (05:44)
[2020-11-23 05:51] LABS: BUN Blood Urea Nitrogen 35 mg/dL (7-18); Bicarbonate 36 mmol/L (21-32); Glucose Level 154 mg/dL (74-106); Magnesium 1.8 mg/dL (1.8-2.4); Potassium 4.4 mmol/L (3.5-5.1); Sodium Level 141 mmol/L (136-145)
--- NOTE | 2020-11-23 07:54 | RAD REPORT ---
EXAM DESCRIPTION: Elvi Single View11/23/2020 4:53 am CLINICAL HISTORY: Pneumonia COMPARISON: November 22 FINDINGS: No significant change in bilateral pulmonary opacities, bilateral upper lobe cavities and. Pleural effusions. Heart remains enlarged. Post surgical changes involve the chest. Pacemaker leads in place
[2020-11-23] MEDS ORDERED: ALBUTEROL 2.5 MG/3 ML NEB SOL NEB PRN (08:48)
--- NOTE | 2020-11-23 08:48 | P.PN ---
Subjective Date of Service: 11/23/20 Primary Care Provider: [facility] doctor Chief Complaint: Pneumonia Patient is doing better today is less hypoxic a nasal cannula oxygen Review of Systems General: Weakness Respiratory: Shortness of Breath Physical Examination - Vital Signs Temperature: 98.0 F Blood Pressure: 105/55 Pulse: 67 Respirations: 16 Pulse Ox (%): 97 - Physical Exam General: Alert, In no apparent distress, Mild distress Respiratory: Diminished (Diminished on the both sides), Expiratory wheezes - Studies Microbiology Data (last 24 hrs): 11/17/20 21:35 Blood - Blood Aerobic Blood Culture - Final No growth in 5 days. 11/17/20 21:35 Blood - Blood Anaerobic Blood Culture - Final No growth in 5 days. 11/17/20 21:22 Blood - Blood Aerobic Blood Culture - Final No growth in 5 days. 11/17/20 21:22 Blood - Blood Anaerobic Blood Culture - Final No growth in 5 days. Assessment & Plan - Problems (Diagnosis) (1) Pneumonia Current Visit: No Status: Acute Plan: Patient admitted with pneumonia schedule for a bronchoscopy to more O2 rule out tuberculosis chest x-ray still shows a dense right upper lobe cavitary pneumonia no evidence of underlying sepsis no sputum sent off for cultures patient is not coughing up anything discuss with the patient risk and benefit of bronchoscopy he is clearly high risk plan to does do a BAL from the right upper low his anticoagulation is on hold for plan to do any biopsies Qualifiers: Pneumonia type: due to unspecified organism Laterality: right
[2020-11-23] MEDS: POVIDONE IODINE 10% TOP SCH (09:00)
[2020-11-23] MEDS: ENSURE ENLIVE 237 ML CAN PO SCH ×2 (09:00→21:11)
[2020-11-23] MEDS: allopurinoL 100 MG TAB PO SCH (09:00)
[2020-11-23] MEDS: HOME MED 1 EA UNK (Fluticasone/Umeclidin/Vilanter [Trelegy Ellipta 100-62.5-25] Blst.W.Dev IH SCH (09:00)
[2020-11-23] MEDS: DRONABINOL 2.5 MG PO SCH ×2 (09:00→21:00)
[2020-11-23 09:06] LABS: White Blood Cell Scan OK (OK)
[2020-11-23 09:07] LABS: Blood Morphology Comment NOT SEEN (NOT SEEN); Platelet Estimate ADEQ
[2020-11-23] MEDS: ARFORMOTEROL TARTRATE 15 MCG/2 ML VIAL.NEB NEB SCH ×2 (09:18→20:05)
[2020-11-23] MEDS: BUDESONIDE 0.5 MG/2 ML NEB NEB SCH ×2 (09:18→20:05)
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
[2020-11-23] MEDS: DOXYCYCLINE 100 MG CAP PO SCH ×2 (09:47→21:12)
[2020-11-23] MEDS: ASCORBIC ACID 500 MG TABLET PO SCH (09:47)
[2020-11-23] MEDS: METOPROLOL TAR 25 MG TAB PO SCH ×2 (09:47→21:09)
[2020-11-23] MEDS: BUSPIRONE HCL 5 MG TABLET PO SCH ×2 (09:47→21:10)
[2020-11-23] MEDS: ZINC SULFATE 220 MG CAP PO SCH (09:47)
[2020-11-23] MEDS: levoFLOXacin 750 MG TAB PO SCH (09:49)
[2020-11-23] MEDS: THIAMINE HCL 100 MG TABLET PO SCH (09:49)
[2020-11-23] MEDS: TAMSULOSIN 0.4 MG SR CAP PO SCH (09:49)
[2020-11-23] MEDS: SACUBITRIL/VALSARTAN 24/26 MG TAB PO SCH ×2 (09:49→21:10)
[2020-11-23] MEDS: PANTOPRAZOLE 40MG TABLET PO SCH (09:49)
[2020-11-23] MEDS: CALCIUM CARBONATE 500 MG TAB PO SCH ×2 (09:49→21:12)
[2020-11-23] MEDS: FINASTERIDE 5 MG TAB PO SCH (09:49)
[2020-11-23] MEDS: NICOTINE 14 MG/PAT TD SCH (09:50)
[2020-11-23] MEDS: DOCUSATE NA 100 MG CAP PO SCH ×2 (09:50→21:00)
[2020-11-23] MEDS: LACTOBACILLUS/ACIDOPHILUS TAB PO SCH ×2 (09:50→21:10)
[2020-11-23] MEDS: MULTIVITAMIN TAB PO SCH (09:50)
[2020-11-23] MEDS: predniSONE 20 MG TAB PO SCH ×2 (09:50→21:10)
[2020-11-23] MEDS: CODEINE 30MG/APAP 300MG TAB PO PRN ×2 (09:57→17:24)
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
[2020-11-23] MEDS: ATORVASTATIN 40 MG TAB PO SCH (21:10)
[2020-11-23] MEDS: MIRTAZAPINE 15 MG TAB PO SCH (21:12)
[2020-11-23] MEDS: MELATONIN 3 MG TABLET PO PRN (21:12)
[2020-11-24] MEDS: IPRATROPIUM BROM 0.5MG/2.5ML NEB SCH ×4 (02:00→20:25)
[2020-11-24] MEDS: LEVOTHYROXINE SOD 0.075 MG TAB PO SCH (05:08)
[2020-11-24 05:53] LABS: Absolute Lymphocytes (CBC) 0.2 K/uL (0.7-4.9); Basophils % 0.2 % (0-1.3); Hematocrit 25.3 % (39.6-49.0); Lymphocytes % 2.5 % (15.3-44.8); MPV 7.9 fL (7.6-11.3); RBC Red Blood Cell Count 2.71 M/uL (4.33-5.43)
[2020-11-24 05:59] LABS: Protime INR 1.12
[2020-11-24 06:20] LABS: BUN Blood Urea Nitrogen 32 mg/dL (7-18); Bicarbonate 36 mmol/L (21-32); Glucose Level 166 mg/dL (74-106); Potassium 4.6 mmol/L (3.5-5.1); Sodium Level 143 mmol/L (136-145)
[2020-11-24] MEDS: ARFORMOTEROL TARTRATE 15 MCG/2 ML VIAL.NEB NEB SCH ×2 (07:52→20:25)
[2020-11-24] MEDS: BUDESONIDE 0.5 MG/2 ML NEB NEB SCH ×2 (07:52→20:25)
[2020-11-24] MEDS: ZINC SULFATE 220 MG CAP PO SCH (09:00)
[2020-11-24] MEDS: PANTOPRAZOLE 40MG TABLET PO SCH ×2 (09:00→16:03)
[2020-11-24] MEDS: DOCUSATE NA 100 MG CAP PO SCH ×2 (09:00→21:18)
[2020-11-24] MEDS: ENSURE ENLIVE 237 ML CAN PO SCH ×2 (09:00→21:23)
[2020-11-24] MEDS: TAMSULOSIN 0.4 MG SR CAP PO SCH (09:00)
[2020-11-24] MEDS: levoFLOXacin 750 MG TAB PO SCH (09:00)
[2020-11-24] MEDS: METOPROLOL TAR 25 MG TAB PO SCH ×2 (09:00→21:00)
[2020-11-24] MEDS: DOXYCYCLINE 100 MG CAP PO SCH ×2 (09:00→21:21)
[2020-11-24] MEDS: FINASTERIDE 5 MG TAB PO SCH (09:00)
[2020-11-24] MEDS: BUSPIRONE HCL 5 MG TABLET PO SCH ×2 (09:00→21:18)
[2020-11-24] MEDS: MULTIVITAMIN TAB PO SCH (09:00)
[2020-11-24] MEDS: POVIDONE IODINE 10% TOP SCH (09:00)
[2020-11-24] MEDS: THIAMINE HCL 100 MG TABLET PO SCH (09:00)
[2020-11-24] MEDS: allopurinoL 100 MG TAB PO SCH (09:00)
[2020-11-24] MEDS: ASCORBIC ACID 500 MG TABLET PO SCH (09:00)
[2020-11-24] MEDS: NICOTINE 14 MG/PAT TD SCH (09:00)
[2020-11-24] MEDS: LACTOBACILLUS/ACIDOPHILUS TAB PO SCH ×2 (09:00→21:18)
[2020-11-24] MEDS: predniSONE 20 MG TAB PO SCH ×2 (09:00→21:21)
[2020-11-24] MEDS: HOME MED 1 EA UNK (Fluticasone/Umeclidin/Vilanter [Trelegy Ellipta 100-62.5-25] Blst.W.Dev IH SCH (09:00)
[2020-11-24] MEDS: SACUBITRIL/VALSARTAN 24/26 MG TAB PO SCH ×2 (09:00→21:18)
[2020-11-24] MEDS: DRONABINOL 2.5 MG PO SCH ×2 (09:00→21:00)
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
[2020-11-24] MEDS: Phenylephrine HCl 10 MG/ML 1 ML VIAL ONE ×4 (10:50→11:55)
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
[2020-11-24] MEDS: CALCIUM CARBONATE 500 MG TAB PO SCH ×2 (11:00→23:25)
[2020-11-24] MEDS ORDERED: Oxycodone HCl/Acetaminophen 1 TAB TAB PO PRN (11:00)
[2020-11-24] MEDS ORDERED: NA CHLORIDE 0.9% 1,000 ML ONE (11:37)
[2020-11-24] MEDS: LIDOCAINE 4% TOP SOLUTION ONE ×3 (11:40→11:55)
[2020-11-24] MEDS ORDERED: LIDOCAINE VISCOUS 2% SOLN 15 ML UDC ONE (12:15)
[2020-11-24] MEDS ORDERED: LIDOCAINE 1% MPF 30 ML VIAL ONE (12:15)
[2020-11-24] MEDS ORDERED: propofoL 200 MG/20 ML VIAL IV ONE (12:36)
[2020-11-24] MEDS ORDERED: LIDOCAINE 1% MPF 5 ML VIAL ONE (12:36)
[2020-11-24] MEDS ORDERED: NS 0.9% VIAL 0 ML ONE (12:50)
[2020-11-24] MEDS ORDERED: ETOMIDATE 20 MG/10 ML VIAL IV ONE (12:50)
[2020-11-24] MEDS ORDERED: Phenylephrine HCl 10 MG/ML 1 ML VIAL ONE (12:50)
--- NOTE | 2020-11-24 13:33 | RAD REPORT ---
EXAM DESCRIPTION: RAD - FLUORO-GUIDE FOR BRONCH UPT1HR - 11/24/2020 1:12 pm CLINICAL HISTORY: RIGHT SIDE LUNG MASS? COMPARISON: Chest Single View dated 11/23/2020 FINDINGS: Fluoroscopy time 20 seconds.
[2020-11-24] MEDS: CODEINE 30MG/APAP 300MG TAB PO PRN (16:03)
[2020-11-24] MEDS: MIRTAZAPINE 15 MG TAB PO SCH (21:18)
[2020-11-24] MEDS: ATORVASTATIN 40 MG TAB PO SCH (21:21)
[2020-11-24] MEDS: MELATONIN 3 MG TABLET PO PRN (21:21)
[2020-11-25] MEDS: IPRATROPIUM BROM 0.5MG/2.5ML NEB SCH ×4 (01:50→19:15)
[2020-11-25] MEDS: LEVOTHYROXINE SOD 0.075 MG TAB PO SCH (05:42)
[2020-11-25] MEDS: ARFORMOTEROL TARTRATE 15 MCG/2 ML VIAL.NEB NEB SCH ×2 (07:28→19:15)
[2020-11-25] MEDS: BUDESONIDE 0.5 MG/2 ML NEB NEB SCH ×2 (07:28→19:15)
[2020-11-25] MEDS: ENSURE ENLIVE 237 ML CAN PO SCH ×2 (09:00→21:34)
[2020-11-25] MEDS: POVIDONE IODINE 10% TOP SCH (09:00)
[2020-11-25] MEDS: DRONABINOL 2.5 MG PO SCH ×2 (09:00→21:00)
[2020-11-25] MEDS: allopurinoL 100 MG TAB PO SCH (09:00)
[2020-11-25] MEDS: HOME MED 1 EA UNK (Fluticasone/Umeclidin/Vilanter [Trelegy Ellipta 100-62.5-25] Blst.W.Dev IH SCH (09:00)
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
[2020-11-25] MEDS: ZINC SULFATE 220 MG CAP PO SCH (10:17)
[2020-11-25] MEDS: FINASTERIDE 5 MG TAB PO SCH (10:17)
[2020-11-25] MEDS: THIAMINE HCL 100 MG TABLET PO SCH (10:18)
[2020-11-25] MEDS: LACTOBACILLUS/ACIDOPHILUS TAB PO SCH ×2 (10:18→20:33)
[2020-11-25] MEDS: DOXYCYCLINE 100 MG CAP PO SCH ×2 (10:18→20:33)
[2020-11-25] MEDS: METOPROLOL TAR 25 MG TAB PO SCH ×2 (10:18→21:00)
[2020-11-25] MEDS: TAMSULOSIN 0.4 MG SR CAP PO SCH (10:18)
[2020-11-25] MEDS: ASCORBIC ACID 500 MG TABLET PO SCH (10:23)
[2020-11-25] MEDS: BUSPIRONE HCL 5 MG TABLET PO SCH ×2 (10:23→20:33)
[2020-11-25] MEDS: PANTOPRAZOLE 40MG TABLET PO SCH (10:23)
[2020-11-25] MEDS: DOCUSATE NA 100 MG CAP PO SCH ×2 (10:23→20:33)
[2020-11-25] MEDS: predniSONE 20 MG TAB PO SCH ×2 (10:23→20:33)
[2020-11-25] MEDS: levoFLOXacin 750 MG TAB PO SCH (10:23)
[2020-11-25] MEDS: SACUBITRIL/VALSARTAN 24/26 MG TAB PO SCH ×2 (10:24→21:00)
[2020-11-25] MEDS: MULTIVITAMIN TAB PO SCH (10:24)
[2020-11-25] MEDS: NICOTINE 14 MG/PAT TD SCH (10:25)
[2020-11-25] MEDS: CALCIUM CARBONATE 500 MG TAB PO SCH (10:30)
--- NOTE | 2020-11-25 13:39 | P.DS ---
Admission Date: 11/17/20 Discharge Date: 12/12/20 Primary Care Provider: [facility] doctor Disposition: TRANSFER TO LONGTERM Discharge Condition: FAIR Reason for Admission: Pneumonia - Problems (1) Acute respiratory failure with hypoxia Current Visit: Yes Status: Resolved (2) COPD exacerbation Onset Date: 08/13/18 Current Visit: Yes Status: Acute (3) Emphysematous bleb of lung Current Visit: Yes Status: Acute (4) Pneumonia Current Visit: Yes Status: Acute Qualifiers: Pneumonia type: due to unspecified organism Laterality: right (5) CAD (coronary artery disease) Onset Date: 08/13/18 Current Visit: No Status: Chronic Qualifiers: Coronary Disease-Associated Artery/Lesion type: [place] artery [place] vs. transplanted heart: [place] heart Associated angina: without angina Qualified Code(s): I25.10 - Atherosclerotic heart disease of [place] coronary artery without angina pectoris (6) Chronic systolic heart failure Current Visit: Yes Status: Chronic (7) Peripheral vascular disease Current Visit: Yes Status: Chronic Brief History of Present Illness: 70-year-old female with history of end-stage COPD, chronic systolic congestive heart failure status post pacemaker/defibrillator placement, atrial fibrillation on chronic anticoagulation therapy, peripheral vascular disease, hypertension, hypothyroidism, CAD presented to the emergency department for shortness of breath from the alf. Patient was tachypneic, dyspneic, blood pressure soft around 100 systolic. Lab significant for hemoglobin 8.6 hematocrit 25.8 MCV 94.5 creatinine 0.65 GFR greater than 90 albumin 1.8 BNP 5646 ABG demonstrates mild hypercapnia with CO2 of 47.7 PO2 45.2. Patient had CT angiogram which demonstrated extensive cystic fibrotic changes throughout the lungs greatest in the upper lobe-multiple large cystic cavities. Large right and small left pleural effusion mild left pleural enhancement could indicate small empyema. Also noted mild anasarca, 70% chronic stenosis of the abdominal aorta at the level of the kidneys due to dense calcified and stop atherosclerotic plaque. Re-demonstrated occlusion of the left common iliac artery with distal reconstitution and multiple tandem stenosis throughout the bilateral iliac and common femoral arteries. During patient's stay in the emergency department he was on BiPAP. Patient was admitted for further evaluation and management of COPD exacerbation/acute on chronic systolic heart failure and pneumonia. Patient also noted to have wounds to the right great toe with what appears to be dry gangrene. patient reports that he has been using Betadine at the alf to care for his wound. History of left BKA from [facility]. Hospital Course: Acute on chronic hypoxemic respiratory failure secondary to 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 Acute on chronic systolic congestive heart failure Acute cystitis - fungal Marked hypoalbuminemia Right great toe arterial ulceration Hypocalcemia Atrial fibrillation on chronic anticoagulation therapy Hypertension Hypothyroidism CAD s/p CABG, stents, pacemaker defibrillator Severe PVD with chronic stenosis of the abdominal aorta at the level of the kidneys and chronic occlusion of the left common iliac artery -patient treated for COPD exacerbation with steroids, nebs, inhalers, severe disease on CT chest -seen by pulm-Dr. Stephens. Sputum culture: Normal respiratory genia. Blood cultures: No growth to date. Patient treated with IV Zosyn and IV Levaquin and later transitioned to oral levaquin and doxy on 11/18, -bronchoscopy was performed, bronchoalveolar lavage done, AFB stain was posit gordy. 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 Patient put on regimen for mycobacterium tuberculosis for 2 weeks before culture results came in. Regimen changed to rifampin, ethambutol, Zithromax and prednisone. -no need for respiratory isolation. -diuresed well with lasix, continue home regimen -x-ray and CT negative for Osteomyelitis, Arterial doppler: Moderate distal peripheral arterial disease. 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 No change in gangrene throughout the hospital stay. -continues antibiotics, eliquis -hypocalcemia - repleted calcium. -fungal cystitis - completed Diflucan. -hematuria - only blood-tinged, brief and resolved < 24hrs, likely from trauma of roca when transferred to isolation room, aspirin dc'd, continued eliquis and plavix. Urine has remained clear -pt came from SNF with indwelling roca catheter. Vital Signs/Physical Exam: Temp Pulse Resp BP Pulse Ox 98.1 F 71 22 H 129/56 L 96 11/25/20 12:00 11/25/20 12:00 11/25/20 12:00 11/25/20 12:00 11/25/20 12:00 HEENT: Other (Oxygen by nasal canula) Neck: Supple, JVD not distended Respiratory: Diminished (Bilateral) Cardiovascular: No edema, Regular rate/rhythm, Normal S1 S2 Gastrointestinal: Normal bowel sounds, Soft and benign, Non-distended, No tenderness Musculoskeletal: Other (Dry gangrene right at tip great toe) Neurological: Other (No focal motor deficit) Laboratory Data at Discharge: WBC 6.20 K/uL (4.3-10.9) 11/24/20 05:36 Hgb 8.6 g/dL (13.6-17.9) L 11/24/20 05:36 Hct 25.3 % (39.6-49.0) L 11/24/20 05:36 Plt Count 220 K/uL (152-406) 11/24/20 05:36 PT 12.9 SECONDS (9.5-12.5) H 11/24/20 05:36 INR 1.12 11/24/20 05:36 Sodium 143 mmol/L (136-145) 11/24/20 05:36 Potassium 4.6 mmol/L (3.5-5.1) 11/24/20 05:36 BUN 32 mg/dL (7-18) H 11/24/20 05:36 Creatinine 0.62 mg/dL (0.55-1.3) 11/24/20 05:36 Glucose 166 mg/dL (74-106) H 11/24/20 05:36 Phosphorus 2.7 mg/dL (2.5-4.9) 11/22/20 05:08 Magnesium 2.0 mg/dL (1.8-2.4) 11/24/20 05:36 Total Bilirubin 0.2 mg/dL (0.2-1.0) 11/22/20 05:08 AST 11 U/L (15-37) L 11/22/20 05:08 ALT 10 U/L (12-78) L 11/22/20 05:08 Alkaline Phosphatase 86 U/L (45-117) 11/22/20 05:08 Troponin I < 0.02 ng/mL (0.0-0.045) 11/18/20 19:48 Home Medications: Levothyroxine [Synthroid*] 75 mcg PO [id number] 09/29/20 Pantoprazole Sodium [Protonix] 40 mg PO DAILY 09/29/20 Sacubitril/Valsartan [Entresto 24 mg-26 mg Tablet] 0.5 each PO BID 09/29/20 Acetaminophen [Tylenol] 650 mg PO Q4HP PRN 11/18/20 Allopurinol 100 mg PO DAILY 11/18/20 Apixaban [Eliquis *] 2.5 mg PO BID 11/18/20 Arformoterol Tartrate [Brovana] 15 mcg NEB BIDRESP 11/18/20 Ascorbic Acid [Vitamin C*] 500 mg PO DAILY 11/18/20 Atorvastatin Calcium [Lipitor] 40 mg PO BEDTIME 11/18/20 Budesonide [Pulmicort*] 0.5 mg IH BID 11/18/20 Clopidogrel Bisulfate [Plavix*] 75 mg PO DAILY 11/18/20 Codeine/APAP [Tylenol #3*] 1 tab PO Q6HP PRN 11/18/20 Dronabinol [Marinol] 2.5 mg PO BID 11/18/20 Finasteride [Proscar*] 5 mg PO DAILY 11/18/20 Fluticasone/Umeclidin/Vilanter [Trelegy Ellipta 100-62.5-25] 1 puff IH DAILY 11/18/20 Furosemide [Lasix*] 20 mg PO BIDL 11/18/20 Ipratropium/Albuterol Sulfate [Combivent Respimat 20-100 Mcg] 1 puff IH Q6HP PRN 11/18/20 Ipratropium/Albuterol Sulfate [Iprat-Albut 0.5-3(2.5) mg/3 ml] 3 ml IH Q4HP PRN 11/18/20 L. Acidophilus/L.bulgaricus [Lactobacillus Tablet] 1 each PO BID 11/18/20 Melatonin [Melatonin*] 3 mg PO BEDTIME PRN 11/18/20 Metoprolol Tartrate [Lopressor*] 12.5 mg PO BID 11/18/20 Mirtazapine [Remeron] 15 mg PO BEDTIME 11/18/20 Multivitamin [Multiple Vitamins] 1 each PO DAILY 11/18/20 Nicotine [Nicoderm*] 1 patch TD DAILY 11/18/20 Nitroglycerin [Nitrostat*] 0.4 mg SL SEECOM PRN 11/18/20 Povidone-Iodine [Betadine Top Soln *] 1 appl TP DAILY 11/18/20 Sennosides [Senna] 8.6 mg PO BEDTIME 11/18/20 Tamsulosin [Flomax*] 2 cap PO DAILY 11/18/20 Thiamine HCl [Vitamin B-1*] 100 mg PO DAILY 11/18/20 Zinc 50 mg PO DAILY 11/18/20 guaiFENesin [Guaifenesin ER] 600 mg PO Q12HP PRN 11/18/20 Buspirone HCl [Buspar*] 5 mg PO BID #0 tab 11/25/20 Ensure Enlive 237 ml PO BID can 11/25/20 Azithromycin [Zithromax] 250 mg PO 30 MIN BEFORE HS 30 Days tablet 12/10/20 Ethambutol HCl 800 mg PO DAILY 30 Days tablet 12/10/20 predniSONE [Deltasone*] 10 mg PO DAILY #30 tab 12/10/20 rifAMPin [Rifadin*] 450 mg PO DAILY cap 12/10/20 rifAMPin [Rifampin] 450 mg PO DAILY 30 Days capsule 12/10/20 Apixaban [Eliquis *] 2.5 mg PO BID tablet 12/12/20 New Medications: predniSONE [Deltasone*] 10 mg PO DAILY #30 tab Ethambutol HCl 800 mg PO DAILY 30 Days tablet rifAMPin [Rifampin] 450 mg PO DAILY 30 Days capsule Azithromycin [Zithromax] 250 mg PO 30 MIN BEFORE HS 30 Days tablet Physician Discharge Instructions: Patient underwent bronchoscopy. Bronchial biopsy was done which need to be followed to rule out malignancy. Diet: AHA Activity: Fall precautions Followup: Nam Stephens MD [ACTIVE - CAN ADMIT] - 1-2 Weeks NONE,NONE [Primary Care Provider] - Time spent managing pt's care (in minutes): 42
--- NOTE | 2020-11-25 13:59 | P.PN ---
Subjective Date of Service: 11/25/20 Primary Care Provider: skilled nursing doctor Chief Complaint: Pneumonia Patient states he is doing much better. AFB stain of bronchoalveolar lavage is positive. Patient currently on baseline oxygen. Physical Examination - Vital Signs Temperature: 98.1 F Blood Pressure: 129/56 Pulse: 71 Respirations: 22 Pulse Ox (%): 96 - Physical Exam General: Alert, In no apparent distress HEENT: Mucous membr. moist/pink Neck: Supple, JVD not distended Respiratory: Diminished (Bilateral) Cardiovascular: No edema, Regular rate/rhythm, Normal S1 S2 Gastrointestinal: Normal bowel sounds, Soft and benign, Non-distended, No tenderness Musculoskeletal: No swelling, Other (Right great toe dry gangrene) Neurological: Other (No focal motor deficit.) - Studies Medications List Reviewed: Yes Assessment And Plan - Current Problems (Diagnosis) (1) Acute respiratory failure with hypoxia Current Visit: No Status: Acute (2) COPD exacerbation Onset Date: 08/13/18 Current Visit: No Status: Acute (3) Emphysematous bleb of lung Current Visit: No Status: Acute (4) Pneumonia Current Visit: No Status: Acute Qualifiers: Pneumonia type: due to unspecified organism Laterality: right (5) CAD (coronary artery disease) Onset Date: 08/13/18 Current Visit: No Status: Chronic Qualifiers: Coronary Disease-Associated Artery/Lesion type: [place] artery [place] vs. transplanted heart: [place] heart Associated angina: without angina Qualified Code(s): I25.10 - Atherosclerotic heart disease of [place] coronary artery without angina pectoris (6) Chronic systolic heart failure Current Visit: Yes Status: Acute (7) Peripheral vascular disease Current Visit: Yes Status: Acute (8) Pulmonary TB Current Visit: Yes Status: Acute - Plan Acute on chronic hypoxemic respiratory failure secondary to 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 Acute on chronic systolic congestive heart failure Acute cystitis - fungal Marked hypoalbuminemia Right great toe arterial ulceration Hypocalcemia Atrial fibrillation on chronic anticoagulation therapy Hypertension Hypothyroidism CAD s/p CABG, stents, pacemaker defibrillator Severe PVD with chronic stenosis of the abdominal aorta at the level of the kidneys and chronic occlusion of the left common iliac artery -continue COPD treatment with oral steroids, nebs, inhalers, severe disease on CT chest -pulm is following, sputum culture: Normal genia. & blood cultures: No growth to date. - antibiotics changed to levaquin and doxy on 11/18, Quantiferon gold test ordered to rule out TB and the result is pending. -bronchoalveolar lavage done yesterday. -smear is positive for AFB. -Infectious disease input appreciated. -infectious disease to follow for initiation of directors observation TB therapy -diuresed well with Lasix, continue home regimen -x-ray and CT negative for Osteomyelitis, Arterial doppler: Moderate distal peripheral arterial disease. Severe peripheral vascular disease involving the aorta, left iliac, common iliac, bilateral iliac and common femoral arteries. -patient will need follow up with vascular surgeon. -continues eliquis and aspirin. -hypocalcemia - replete calcium as needed. -fungal cystitis - continue diflucan -hematuria - only blood-tinged, brief and resolved < 24hrs, likely from trauma of roca when transferred to isolation room, aspirin dc'd, continue eliquis and plavix. Urine remain clear -pt came from SNF with indwelling roca catheter. Physician Review Additional Text: Code: DNR
[2020-11-25] MEDS: CODEINE 30MG/APAP 300MG TAB PO PRN (14:31)
[2020-11-25] MEDS: ISONIAZID 300 MG TAB PO SCH (16:00)
[2020-11-25] MEDS: ETHAMBUTOL HCL 400 MG TAB PO SCH (17:02)
[2020-11-25] MEDS: PYRAZINAMIDE 500 MG TAB PO SCH (17:03)
[2020-11-25] MEDS: PYRIDOXINE (VIT B6) 50 MG TAB PO SCH (17:03)
[2020-11-25] MEDS: APIXABAN 2.5 MG TABLET PO SCH (20:33)
[2020-11-25] MEDS: ATORVASTATIN 40 MG TAB PO SCH (20:33)
[2020-11-25] MEDS: MIRTAZAPINE 15 MG TAB PO SCH (20:33)
[2020-11-26] MEDS: CODEINE 30MG/APAP 300MG TAB PO PRN ×3 (00:10→20:26)
[2020-11-26] MEDS: IPRATROPIUM BROM 0.5MG/2.5ML NEB SCH ×4 (02:05→19:55)
[2020-11-26] MEDS: LEVOTHYROXINE SOD 0.075 MG TAB PO SCH (05:08)
[2020-11-26 05:54] LABS: Absolute Lymphocytes (CBC) 0.2 K/uL (0.7-4.9); Basophils % 0.2 % (0-1.3); Lymphocytes % 3.5 % (15.3-44.8); MPV 7.9 fL (7.6-11.3); RBC Red Blood Cell Count 2.68 M/uL (4.33-5.43)
[2020-11-26 06:11] LABS: ALT/SGPT 14 U/L (12-78); AST/SGOT 13 U/L (15-37); Albumin 2.1 g/dL (3.4-5.0); Alkaline Phosphatase 110 U/L (45-117); BUN Blood Urea Nitrogen 30 mg/dL (7-18); Bicarbonate 35 mmol/L (21-32); Bilirubin Total 0.4 mg/dL (0.2-1.0); Glucose Level 173 mg/dL (74-106); Potassium 4.3 mmol/L (3.5-5.1); Protein, Total 5.1 g/dL (6.4-8.2); Sodium Level 143 mmol/L (136-145)
[2020-11-26] MEDS: ARFORMOTEROL TARTRATE 15 MCG/2 ML VIAL.NEB NEB SCH ×2 (08:01→19:55)
[2020-11-26] MEDS: BUDESONIDE 0.5 MG/2 ML NEB NEB SCH ×2 (08:01→19:55)
[2020-11-26] MEDS: POVIDONE IODINE 10% TOP SCH (09:00)
[2020-11-26] MEDS: HOME MED 1 EA UNK (Fluticasone/Umeclidin/Vilanter [Trelegy Ellipta 100-62.5-25] Blst.W.Dev IH SCH (09:00)
[2020-11-26] MEDS: DRONABINOL 2.5 MG PO SCH ×2 (09:00→20:27)
[2020-11-26] MEDS: ASCORBIC ACID 500 MG TABLET PO SCH (09:00)
[2020-11-26] MEDS: MULTIVITAMIN TAB PO SCH (09:00)
[2020-11-26] MEDS: NICOTINE 14 MG/PAT TD SCH (09:00)
[2020-11-26] MEDS: allopurinoL 100 MG TAB PO SCH (09:00)
[2020-11-26] MEDS: SACUBITRIL/VALSARTAN 24/26 MG TAB PO SCH ×2 (09:00→20:27)
[2020-11-26] MEDS: ENSURE ENLIVE 237 ML CAN PO SCH ×2 (09:00→20:29)
[2020-11-26] MEDS: ISONIAZID 300 MG TAB PO SCH (09:28)
[2020-11-26] MEDS: PYRAZINAMIDE 500 MG TAB PO SCH (09:28)
[2020-11-26] MEDS: ETHAMBUTOL HCL 400 MG TAB PO SCH (09:28)
[2020-11-26] MEDS: CLOPIDOGREL 75 MG TABLET PO SCH (09:30)
[2020-11-26] MEDS: BUSPIRONE HCL 5 MG TABLET PO SCH ×2 (09:30→20:26)
[2020-11-26] MEDS: DOCUSATE NA 100 MG CAP PO SCH ×2 (09:30→20:26)
[2020-11-26] MEDS: ZINC SULFATE 220 MG CAP PO SCH (09:30)
[2020-11-26] MEDS: predniSONE 20 MG TAB PO SCH ×2 (09:30→20:27)
[2020-11-26] MEDS: PANTOPRAZOLE 40MG TABLET PO SCH (09:30)
[2020-11-26] MEDS: THIAMINE HCL 100 MG TABLET PO SCH (09:30)
[2020-11-26] MEDS: METOPROLOL TAR 25 MG TAB PO SCH ×2 (09:31→20:26)
[2020-11-26] MEDS: LACTOBACILLUS/ACIDOPHILUS TAB PO SCH ×2 (09:31→20:26)
[2020-11-26] MEDS: TAMSULOSIN 0.4 MG SR CAP PO SCH (09:31)
[2020-11-26] MEDS: levoFLOXacin 750 MG TAB PO SCH (09:31)
[2020-11-26] MEDS: FINASTERIDE 5 MG TAB PO SCH (09:33)
[2020-11-26] MEDS: DOXYCYCLINE 100 MG CAP PO SCH ×2 (09:33→20:26)
[2020-11-26] MEDS: APIXABAN 2.5 MG TABLET PO SCH ×2 (09:33→20:27)
[2020-11-26] MEDS: CALCIUM CARBONATE 500 MG TAB PO SCH ×3 (10:35→23:51)
--- NOTE | 2020-11-26 12:03 | P.PN ---
Subjective Date of Service: 11/26/20 Primary Care Provider: [facility] doctor Chief Complaint: Pneumonia Patient has no complain today. He states his breathing is much better. Anti TB treatment started Patient currently on baseline oxygen. Physical Examination - Vital Signs Temperature: 97.7 F Blood Pressure: 123/57 Pulse: 67 Respirations: 24 Pulse Ox (%): 98 - Physical Exam General: Alert, In no apparent distress, Oriented x3 HEENT: Mucous membr. moist/pink Neck: JVD not distended Respiratory: Diminished (Bilateral) Cardiovascular: No edema, Regular rate/rhythm, Normal S1 S2 Gastrointestinal: Soft and benign, Non-distended, No tenderness Musculoskeletal: Other (Gangrene of right toe) Neurological: Other (No focal motor deficits) - Studies Medications List Reviewed: Yes Assessment And Plan - Current Problems (Diagnosis) (1) Acute respiratory failure with hypoxia Current Visit: No Status: Resolved (2) COPD exacerbation Onset Date: 08/13/18 Current Visit: No Status: Acute (3) Emphysematous bleb of lung Current Visit: No Status: Acute (4) Pneumonia Current Visit: No Status: Acute Qualifiers: Pneumonia type: due to unspecified organism Laterality: right (5) CAD (coronary artery disease) Onset Date: 08/13/18 Current Visit: No Status: Chronic Qualifiers: Coronary Disease-Associated Artery/Lesion type: [place] artery [place] vs. transplanted heart: [place] heart Associated angina: without angina Qualified Code(s): I25.10 - Atherosclerotic heart disease of [place] coronary artery without angina pectoris (6) Chronic systolic heart failure Current Visit: Yes Status: Acute (7) Peripheral vascular disease Current Visit: Yes Status: Acute (8) Pulmonary TB Current Visit: Yes Status: Acute - Plan Acute on chronic hypoxemic respiratory failure secondary to 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 Acute on chronic systolic congestive heart failure Acute cystitis - fungal Marked hypoalbuminemia Right great toe arterial ulceration Hypocalcemia Atrial fibrillation on chronic anticoagulation therapy Hypertension Hypothyroidism CAD s/p CABG, stents, pacemaker defibrillator Severe PVD with chronic stenosis of the abdominal aorta at the level of the kidneys and chronic occlusion of the left common iliac artery -continue COPD treatment with oral steroids, nebs, inhalers, severe disease on CT chest -pulm is following, sputum culture: Normal genia. & blood cultures: No growth to date. - antibiotics changed to levaquin and doxy on 11/18, Quantiferon gold test ordered to rule out TB and the result is pending. -bronchoalveolar lavage:-smear is positive for AFB. -Infectious disease input appreciated. -patient started on anti TB therapy -he diuresed well with Lasix, continue home regimen -x-ray and CT negative for Osteomyelitis, Arterial doppler: Moderate distal peripheral arterial disease. Severe peripheral vascular disease involving the aorta, left iliac, common iliac, bilateral iliac and common femoral arteries. -patient will need follow up with vascular surgeon. -continues eliquis and aspirin. -hypocalcemia - replete calcium as needed. -fungal cystitis - continue diflucan -hematuria - only blood-tinged, brief and resolved < 24hrs, likely from trauma of roca when transferred to isolation room, aspirin dc'd, continue eliquis and plavix. Urine remain clear -pt came from SNF with indwelling roca catheter.
[2020-11-26] MEDS: MIRTAZAPINE 15 MG TAB PO SCH (20:26)
[2020-11-26] MEDS: ATORVASTATIN 40 MG TAB PO SCH (20:26)
[2020-11-27] MEDS: IPRATROPIUM BROM 0.5MG/2.5ML NEB SCH ×2 (03:05→08:00)
[2020-11-27] MEDS: LEVOTHYROXINE SOD 0.075 MG TAB PO SCH (05:40)
[2020-11-27] MEDS: ARFORMOTEROL TARTRATE 15 MCG/2 ML VIAL.NEB NEB SCH ×2 (08:00→20:05)
[2020-11-27] MEDS: BUDESONIDE 0.5 MG/2 ML NEB NEB SCH (08:00)
[2020-11-27] MEDS: DRONABINOL 2.5 MG PO SCH ×2 (09:00→20:38)
[2020-11-27] MEDS: POVIDONE IODINE 10% TOP SCH (09:00)
[2020-11-27] MEDS: allopurinoL 100 MG TAB PO SCH (09:00)
[2020-11-27] MEDS: HOME MED 1 EA UNK (Fluticasone/Umeclidin/Vilanter [Trelegy Ellipta 100-62.5-25] Blst.W.Dev IH SCH (09:00)
[2020-11-27] MEDS: NICOTINE 14 MG/PAT TD SCH (09:00)
[2020-11-27] MEDS ORDERED: CLOPIDOGREL 75 MG TABLET PO SCH (09:00)
[2020-11-27] MEDS: ENSURE ENLIVE 237 ML CAN PO SCH ×2 (09:00→20:37)
[2020-11-27] MEDS ORDERED: APIXABAN 2.5 MG TABLET PO SCH (09:48)
--- NOTE | 2020-11-27 09:49 | P.PN ---
Subjective Date of Service: 11/27/20 Primary Care Provider: senior living doctor Chief Complaint: Right upper lobe AFB positive pneumonia Patient is doing really well breathing has improved bronchoscopy positive for AFB Review of Systems General: Weakness Respiratory: Shortness of Breath Physical Examination - Vital Signs Temperature: 98.4 F Blood Pressure: 113/61 Pulse: 63 Respirations: 20 Pulse Ox (%): 100 - Physical Exam General: Alert, Oriented x3 Respiratory: Diminished, Friction rub, Expiratory wheezes Cardiovascular: No edema, Regular rate/rhythm - Studies Medications List Reviewed: Yes Assessment & Plan - Problems (Diagnosis) (1) Pneumonia Current Visit: No Status: Acute Plan: Right upper lobe cavitary pneumonia AFB positive 1 smear cultures pending patient is non tuberculosis therapy cultures also show gram-negative organisms continue with levofloxacin Dc doxycycline reduce dose of prednisone Dc continuous pulse ox oxygenation satisfactory use albuterol ipratropium p.r.n. Dc utilized Pulmicort reorder anticoagulation Qualifiers: Pneumonia type: due to unspecified organism Laterality: right Physician Review Additional Text: Code: DNR
[2020-11-27] MEDS: SACUBITRIL/VALSARTAN 24/26 MG TAB PO SCH ×2 (10:10→20:35)
[2020-11-27] MEDS: ISONIAZID 300 MG TAB PO SCH (10:10)
[2020-11-27] MEDS: ZINC SULFATE 220 MG CAP PO SCH (10:11)
[2020-11-27] MEDS: ETHAMBUTOL HCL 400 MG TAB PO SCH (10:11)
[2020-11-27] MEDS: predniSONE 20 MG TAB PO SCH ×2 (10:11→20:36)
[2020-11-27] MEDS: APIXABAN 2.5 MG TABLET PO SCH ×2 (10:12→20:36)
[2020-11-27] MEDS: CLOPIDOGREL 75 MG TABLET PO SCH (10:12)
[2020-11-27] MEDS: LACTOBACILLUS/ACIDOPHILUS TAB PO SCH ×2 (10:12→20:35)
[2020-11-27] MEDS: ASCORBIC ACID 500 MG TABLET PO SCH (10:12)
[2020-11-27] MEDS: TAMSULOSIN 0.4 MG SR CAP PO SCH (10:12)
[2020-11-27] MEDS: PANTOPRAZOLE 40MG TABLET PO SCH (10:13)
[2020-11-27] MEDS: THIAMINE HCL 100 MG TABLET PO SCH (10:13)
[2020-11-27] MEDS: PYRAZINAMIDE 500 MG TAB PO SCH (10:13)
[2020-11-27] MEDS: PYRIDOXINE (VIT B6) 50 MG TAB PO SCH (10:13)
[2020-11-27] MEDS: DOCUSATE NA 100 MG CAP PO SCH ×2 (10:13→20:36)
[2020-11-27] MEDS: MULTIVITAMIN TAB PO SCH (10:13)
[2020-11-27] MEDS: FINASTERIDE 5 MG TAB PO SCH (10:14)
[2020-11-27] MEDS: METOPROLOL TAR 25 MG TAB PO SCH ×2 (10:14→20:37)
[2020-11-27] MEDS: levoFLOXacin 750 MG TAB PO SCH (10:15)
[2020-11-27] MEDS: BUSPIRONE HCL 5 MG TABLET PO SCH ×2 (10:15→20:35)
[2020-11-27] MEDS: CALCIUM CARBONATE 500 MG TAB PO SCH ×2 (10:38→22:03)
[2020-11-27] MEDS: CODEINE 30MG/APAP 300MG TAB PO PRN ×2 (12:16→22:03)
--- NOTE | 2020-11-27 13:26 | P.PN ---
Subjective Date of Service: 11/27/20 Primary Care Provider: long term doctor Chief Complaint: Pneumonia Patient has no complain today. Anti TB treatment started Patient is stable on his baseline oxygen. Physical Examination - Vital Signs Temperature: 97.7 F Blood Pressure: 112/64 Pulse: 64 Respirations: 16 Pulse Ox (%): 100 - Physical Exam General: Alert, In no apparent distress Respiratory: Diminished Cardiovascular: No edema, Regular rate/rhythm, Normal S1 S2 Gastrointestinal: Soft and benign, Non-distended Neurological: Other (No focal motor deficit.) - Studies Medications List Reviewed: Yes Assessment And Plan - Current Problems (Diagnosis) (1) Acute respiratory failure with hypoxia Current Visit: No Status: Resolved (2) COPD exacerbation Onset Date: 08/13/18 Current Visit: No Status: Acute (3) Emphysematous bleb of lung Current Visit: No Status: Acute (4) Pneumonia Current Visit: No Status: Acute Qualifiers: Pneumonia type: due to unspecified organism Laterality: right (5) CAD (coronary artery disease) Onset Date: 08/13/18 Current Visit: No Status: Chronic Qualifiers: Coronary Disease-Associated Artery/Lesion type: [place] artery [place] vs. transplanted heart: [place] heart Associated angina: without angina Qualified Code(s): I25.10 - Atherosclerotic heart disease of [place] coronary artery without angina pectoris (6) Chronic systolic heart failure Current Visit: Yes Status: Acute (7) Peripheral vascular disease Current Visit: Yes Status: Acute (8) Pulmonary TB Current Visit: Yes Status: Acute - Plan Acute on chronic hypoxemic respiratory failure secondary to 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 Acute on chronic systolic congestive heart failure Acute cystitis - fungal Marked hypoalbuminemia Right great toe arterial ulceration Hypocalcemia Atrial fibrillation on chronic anticoagulation therapy Hypertension Hypothyroidism CAD s/p CABG, stents, pacemaker defibrillator Severe PVD with chronic stenosis of the abdominal aorta at the level of the kidneys and chronic occlusion of the left common iliac artery -continue COPD treatment with oral steroids, nebs, inhalers, severe disease on CT chest -pulm is following. -patient completed Levaquin and doxycycline. Quantiferon gold test ordered to rule out TB and the result is pending. -bronchoalveolar lavage:-smear is positive for AFB. -Infectious disease input appreciated. -patient started on anti TB therapy -he diuresed well with Lasix, continue home regimen -x-ray and CT negative for Osteomyelitis, Arterial doppler: Moderate distal peripheral arterial disease. Severe peripheral vascular disease involving the aorta, left iliac, common iliac, bilateral iliac and common femoral arteries. -patient will need follow up with vascular surgeon. -continues eliquis and aspirin. -hypocalcemia - replete calcium as needed. -fungal cystitis - continue diflucan -hematuria - resolved -chronic indwelling roca catheter.
--- NOTE | 2020-11-27 17:18 | P.PN ---
Subjective Date of Service: 11/27/20 Primary Care Provider: skilled nursing doctor Chief Complaint: Pneumonia Subjective: No C/O voiced, Tolerating diet Physical Examination - Vital Signs Temperature: 97.7 F Blood Pressure: 112/64 Pulse: 64 Respirations: 16 Pulse Ox (%): 100 - Physical Exam General: Alert, Oriented x3 HEENT: Atraumatic, Normocephalic Neck: Supple Respiratory: Diminished Cardiovascular: No edema Gastrointestinal: Soft and benign, Non-distended Musculoskeletal: No swelling, No erythema, Other (left BKA ) Integumentary: Other (arterial ulcer to right great toe and second toe, ) Neurological: Normal speech - Studies Medications List Reviewed: Yes Assessment And Plan - Plan Continue betadine application to both arterial wounds and wrap with kerlix. Arterial droppler suggest PVD, pt may need consultation by a surgeon. Pulmonary following. Pt had a bronchoscopy done on 11/24 results pending. Medical management per primary team Continue to monitor CBC and BMP Continue to monitor for signs and symptoms of infection Plan of care discussed with Dr. Garcia Thank you for consultation Physician Review Additional Text: Code: DNR Time Spent Managing PTS Care (In Minutes): 35
[2020-11-27] MEDS: ATORVASTATIN 40 MG TAB PO SCH (20:36)
[2020-11-27] MEDS: MIRTAZAPINE 15 MG TAB PO SCH (20:36)
[2020-11-28] MEDS: LEVOTHYROXINE SOD 0.075 MG TAB PO SCH (05:44)
[2020-11-28] MEDS: ARFORMOTEROL TARTRATE 15 MCG/2 ML VIAL.NEB NEB SCH ×2 (07:33→20:15)
--- NOTE | 2020-11-28 08:38 | RAD REPORT ---
EXAM DESCRIPTION: [facility] Single View11/28/2020 8:18 am CLINICAL HISTORY: Pneumonia COMPARISON: November 23 FINDINGS: Some improvement in the right lung opacities. Cavitary lesions without significant change . Right pleural effusion may have decreased mildly in size. Small left pleural effusion with mild left lung opacities. The heart remains enlarged IMPRESSION: Mild improvement in the right pneumonia
[2020-11-28] MEDS: DRONABINOL 2.5 MG PO SCH ×2 (09:00→19:35)
[2020-11-28] MEDS: NICOTINE 14 MG/PAT TD SCH (09:00)
[2020-11-28] MEDS: HOME MED 1 EA UNK (Fluticasone/Umeclidin/Vilanter [Trelegy Ellipta 100-62.5-25] Blst.W.Dev IH SCH (09:00)
[2020-11-28] MEDS: THIAMINE HCL 100 MG TABLET PO SCH (09:00)
[2020-11-28] MEDS: predniSONE 20 MG TAB PO SCH (09:00)
[2020-11-28] MEDS: allopurinoL 100 MG TAB PO SCH (09:00)
[2020-11-28] MEDS: ENSURE ENLIVE 237 ML CAN PO SCH ×2 (09:00→21:00)
[2020-11-28] MEDS: POVIDONE IODINE 10% TOP SCH (09:00)
--- NOTE | 2020-11-28 09:19 | P.PN ---
Subjective Date of Service: 11/28/20 Primary Care Provider: alf doctor Chief Complaint: Pneumonia Patient has no complain today. He is stable on his baseline oxygen. Physical Examination - Vital Signs Temperature: 97.4 F Blood Pressure: 115/64 Pulse: 67 Respirations: 18 Pulse Ox (%): 98 - Physical Exam General: Alert, In no apparent distress Neck: JVD not distended Respiratory: Diminished, Crackles/rales (Bilateral) Cardiovascular: No edema, Regular rate/rhythm, Normal S1 S2 Gastrointestinal: Soft and benign, Non-distended, No tenderness Musculoskeletal: Other (Dry gangrene tip of left big toe and left 2nd toe.) Neurological: Normal strength at 5/5 x4 extr - Studies Medications List Reviewed: Yes Assessment And Plan - Current Problems (Diagnosis) (1) Acute respiratory failure with hypoxia Current Visit: No Status: Resolved (2) COPD exacerbation Onset Date: 08/13/18 Current Visit: No Status: Acute (3) Emphysematous bleb of lung Current Visit: No Status: Acute (4) Pneumonia Current Visit: No Status: Acute Qualifiers: Pneumonia type: due to unspecified organism Laterality: right (5) CAD (coronary artery disease) Onset Date: 08/13/18 Current Visit: No Status: Chronic Qualifiers: Coronary Disease-Associated Artery/Lesion type: tribe artery [place] vs. transplanted heart: tribe heart Associated angina: without angina Qualified Code(s): I25.10 - Atherosclerotic heart disease of tribe coronary artery without angina pectoris (6) Chronic systolic heart failure Current Visit: Yes Status: Acute (7) Peripheral vascular disease Current Visit: Yes Status: Acute (8) Pulmonary TB Current Visit: Yes Status: Acute - Plan Acute on chronic hypoxemic respiratory failure secondary to 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 Acute on chronic systolic congestive heart failure Acute cystitis - fungal Marked hypoalbuminemia Right great toe arterial ulceration Hypocalcemia Atrial fibrillation on chronic anticoagulation therapy Hypertension Hypothyroidism CAD s/p CABG, stents, pacemaker defibrillator Severe PVD with chronic stenosis of the abdominal aorta at the level of the kidneys and chronic occlusion of the left common iliac artery -continue oral steroids, nebs, inhalers. Reduce steroid dose to 20 mg daily. -pulm is following. -patient completed Levaquin and doxycycline. Quantiferon gold test is pending. -bronchoalveolar lavage:-smear is positive for AFB. -Infectious disease input appreciated. -patient started on anti TB therapy. Monitor LFT periodically. -he diuresed well with Lasix, continue home regimen -x-ray and CT negative for Osteomyelitis, Arterial doppler: Moderate distal peripheral arterial disease. Severe peripheral vascular disease involving the aorta, left iliac, common iliac, bilateral iliac and common femoral arteries. -patient will need follow up with vascular surgeon. -continues eliquis and aspirin. -hypocalcemia - replete calcium as needed. -fungal cystitis -patient to Diflucan for about 5 days. Probably asymptomatic candiduria. Diflucan discontinued. -hematuria - resolved -chronic indwelling roca catheter.
[2020-11-28] MEDS: PANTOPRAZOLE 40MG TABLET PO SCH (10:43)
[2020-11-28] MEDS: PYRIDOXINE (VIT B6) 50 MG TAB PO SCH (10:44)
[2020-11-28] MEDS: ISONIAZID 300 MG TAB PO SCH (10:44)
[2020-11-28] MEDS: PYRAZINAMIDE 500 MG TAB PO SCH (10:44)
[2020-11-28] MEDS: ETHAMBUTOL HCL 400 MG TAB PO SCH (10:44)
[2020-11-28] MEDS: METOPROLOL TAR 25 MG TAB PO SCH ×2 (10:45→21:00)
[2020-11-28] MEDS: LACTOBACILLUS/ACIDOPHILUS TAB PO SCH ×2 (10:45→23:03)
[2020-11-28] MEDS: FINASTERIDE 5 MG TAB PO SCH (10:45)
[2020-11-28] MEDS: levoFLOXacin 750 MG TAB PO SCH (10:45)
[2020-11-28] MEDS: ASCORBIC ACID 500 MG TABLET PO SCH (10:45)
[2020-11-28] MEDS: SACUBITRIL/VALSARTAN 24/26 MG TAB PO SCH ×2 (10:45→23:02)
[2020-11-28] MEDS: BUSPIRONE HCL 5 MG TABLET PO SCH ×2 (10:46→23:03)
[2020-11-28] MEDS: ZINC SULFATE 220 MG CAP PO SCH (10:46)
[2020-11-28] MEDS: APIXABAN 2.5 MG TABLET PO SCH ×2 (10:46→23:03)
[2020-11-28] MEDS: TAMSULOSIN 0.4 MG SR CAP PO SCH (10:46)
[2020-11-28] MEDS: CLOPIDOGREL 75 MG TABLET PO SCH (10:47)
[2020-11-28] MEDS: MULTIVITAMIN TAB PO SCH (10:47)
[2020-11-28] MEDS: DOCUSATE NA 100 MG CAP PO SCH ×2 (10:47→23:02)
[2020-11-28] MEDS: CALCIUM CARBONATE 500 MG TAB PO SCH ×2 (10:47→23:03)
[2020-11-28] MEDS: CODEINE 30MG/APAP 300MG TAB PO PRN (17:47)
--- NOTE | 2020-11-28 22:26 | PN ---
Subjective: The patient denies any headache, nausea, vomiting, chest pain, abdominal pain, constipat ion, or diarrhea. Complains of spells being too large, for which he has to take twice a day for tube rculosis. Objective: Vital Signs: Temperature 97, pulse 70, respirations 16, blood pressure 120/70. Lungs: Crackles, right more than left. Heart: S1, S2. Regular. Abdomen: Soft, nontender. Bowel sounds present. Extremities: No edema. Laboratory Data: WBC 5.3, hemoglobin 8.5, platelets 174. Chemistry shows sodium 143, potassium 4.3, chloride 106, bicarb 35, BUN 30, creatinine 0.5, glucose is 173. Prealbumin level is 2.1. AFB is p ending. The patient is currently getting 4 drugs for possible TB infection. Assessment And Plan: Acute respiratory failure with hypoxia; chronic obstructive pulmonary disease e xacerbation; cavitary lesion of lung with AFB positive, currently being treated with 4 drug regimen; peripheral vascular disease; chronic systolic heart failure. Continue current treatment. We will mo nitor for signs of infection. Awaiting sensitivity. NF/MODL Voice ID: [id number] Report ID: [id number]
[2020-11-28] MEDS: ATORVASTATIN 40 MG TAB PO SCH (23:03)
[2020-11-28] MEDS: MIRTAZAPINE 15 MG TAB PO SCH (23:03)
[2020-11-29] MEDS: IPRATROPIUM BROM 0.5MG/2.5ML NEB PRN (04:10)
[2020-11-29] MEDS: LEVOTHYROXINE SOD 0.075 MG TAB PO SCH (05:26)
[2020-11-29 07:12] LABS: BUN Blood Urea Nitrogen 31 mg/dL (7-18); Bicarbonate 31 mmol/L (21-32); Glucose Level 83 mg/dL (74-106); Potassium 3.9 mmol/L (3.5-5.1); Sodium Level 143 mmol/L (136-145)
[2020-11-29 07:28] LABS: Absolute Lymphocytes (CBC) 0.2 K/uL (0.7-4.9); Basophils % 0.1 % (0-1.3); Hematocrit 30.7 % (39.6-49.0); Lymphocytes % 2.3 % (15.3-44.8); MPV 8.1 fL (7.6-11.3); RBC Red Blood Cell Count 3.24 M/uL (4.33-5.43)
[2020-11-29] MEDS: ARFORMOTEROL TARTRATE 15 MCG/2 ML VIAL.NEB NEB SCH ×2 (07:54→19:35)
[2020-11-29 08:42] LABS: Blood Morphology Comment NOT SEEN (NOT SEEN); Platelet Estimate ADEQ
[2020-11-29] MEDS: THIAMINE HCL 100 MG TABLET PO SCH (09:00)
[2020-11-29] MEDS: DRONABINOL 2.5 MG PO SCH ×2 (09:00→21:00)
[2020-11-29] MEDS: allopurinoL 100 MG TAB PO SCH (09:00)
[2020-11-29] MEDS: HOME MED 1 EA UNK (Fluticasone/Umeclidin/Vilanter [Trelegy Ellipta 100-62.5-25] Blst.W.Dev IH SCH (09:00)
[2020-11-29] MEDS: ISONIAZID 300 MG TAB PO SCH (09:00)
[2020-11-29] MEDS: ETHAMBUTOL HCL 400 MG TAB PO SCH (09:00)
[2020-11-29] MEDS: ENSURE ENLIVE 237 ML CAN PO SCH ×2 (09:00→22:54)
[2020-11-29] MEDS: POVIDONE IODINE 10% TOP SCH (09:00)
[2020-11-29] MEDS: NICOTINE 14 MG/PAT TD SCH (09:55)
[2020-11-29] MEDS: PYRAZINAMIDE 500 MG TAB PO SCH (09:56)
[2020-11-29] MEDS: LACTOBACILLUS/ACIDOPHILUS TAB PO SCH ×2 (09:56→22:22)
[2020-11-29] MEDS: PYRIDOXINE (VIT B6) 50 MG TAB PO SCH (09:56)
[2020-11-29] MEDS: METOPROLOL TAR 25 MG TAB PO SCH ×2 (09:58→21:00)
[2020-11-29] MEDS: SACUBITRIL/VALSARTAN 24/26 MG TAB PO SCH ×2 (09:58→21:00)
[2020-11-29] MEDS: predniSONE 20 MG TAB PO SCH (09:58)
[2020-11-29] MEDS: APIXABAN 2.5 MG TABLET PO SCH ×2 (09:58→22:22)
[2020-11-29] MEDS: FINASTERIDE 5 MG TAB PO SCH (09:58)
[2020-11-29] MEDS: ASCORBIC ACID 500 MG TABLET PO SCH (09:58)
[2020-11-29] MEDS: TAMSULOSIN 0.4 MG SR CAP PO SCH (09:58)
[2020-11-29] MEDS: CODEINE 30MG/APAP 300MG TAB PO PRN (09:59)
[2020-11-29] MEDS: ZINC SULFATE 220 MG CAP PO SCH (09:59)
[2020-11-29] MEDS: PANTOPRAZOLE 40MG TABLET PO SCH (10:00)
[2020-11-29] MEDS: MULTIVITAMIN TAB PO SCH (10:00)
[2020-11-29] MEDS: CALCIUM CARBONATE 500 MG TAB PO SCH ×2 (10:00→22:23)
[2020-11-29] MEDS: levoFLOXacin 750 MG TAB PO SCH (10:00)
[2020-11-29] MEDS: DOCUSATE NA 100 MG CAP PO SCH ×2 (10:00→22:23)
[2020-11-29] MEDS: CLOPIDOGREL 75 MG TABLET PO SCH (10:00)
[2020-11-29] MEDS: BUSPIRONE HCL 5 MG TABLET PO SCH ×2 (10:01→22:22)
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
--- NOTE | 2020-11-29 12:19 | P.PN ---
Subjective Date of Service: 11/29/20 Primary Care Provider: penitentiary doctor Chief Complaint: Pneumonia Physical Examination - Vital Signs Temperature: 100.4 F Blood Pressure: 120/70 Pulse: 78 Respirations: 16 Pulse Ox (%): 94 - Studies Medications List Reviewed: Yes Assessment & Plan Physician Review Additional Text: Physical Exam General: Alert, In no apparent distress HEENT: normal conjunctiva, sclera anicteric Respiratory: Diminished, bilateral crackles/rales Cardiovascular: No edema, Regular rate/rhythm, Normal S1 S2 Gastrointestinal: Soft, nontender, nondistended Musculoskeletal: Dry gangrene tip of big toe and 2nd toe Neurological: Normal strength at 5/5 x4 extr Problem List Acute on chronic hypoxemic respiratory failure secondary to 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 Pulm is following -patient completed Levaquin and doxycycline. Quantiferon gold test is pending. -bronchoalveolar lavage:-smear is positive for AFB, GNR growing as well - awaiting final cultures -Infectious disease input appreciated. -patient started on anti TB therapy. Monitor LFT periodically. -diuresed well with Lasix, continue home regimen -x-ray and CT negative for Osteomyelitis, Arterial doppler: Moderate distal peripheral arterial disease. Severe peripheral vascular disease involving the aorta, left iliac, common iliac, bilateral iliac and common femoral arteries. Patient will need follow up with vascular surgeon. -continue eliquis and aspirin. -fungal cystitis -patient completed Diflucan for ~5 days. Diflucan discontinued. -hematuria - resolved, chronic indwelling roca catheter. Code: DNR Dispo: JEAN-CLAUDE/JOSHUA consulted, pt from SNF, awaiting final cultures, then will be clear to go back to SNf, will need isolation room Time Spent Managing Pts Care (In Minutes): 35
[2020-11-29] MEDS ORDERED: NA CHLORIDE 0.9% 250 ML IV PRN (19:02)
[2020-11-29] MEDS ORDERED: NA CHLORIDE 0.9% 250 ML ONE (19:23)
[2020-11-29] MEDS: MIRTAZAPINE 15 MG TAB PO SCH (22:22)
[2020-11-29] MEDS: ATORVASTATIN 40 MG TAB PO SCH (22:24)
[2020-11-30] MEDS: LEVOTHYROXINE SOD 0.075 MG TAB PO SCH (05:07)
[2020-11-30 05:54] LABS: Absolute Lymphocytes (CBC) 0.3 K/uL (0.7-4.9); Basophils % 0.2 % (0-1.3); Hematocrit 27.5 % (39.6-49.0); Lymphocytes % 3.7 % (15.3-44.8); MPV 8.1 fL (7.6-11.3)
[2020-11-30 06:16] LABS: ALT/SGPT 12 U/L (12-78); AST/SGOT 24 U/L (15-37); Alkaline Phosphatase 84 U/L (45-117); BUN Blood Urea Nitrogen 35 mg/dL (7-18); Bicarbonate 31 mmol/L (21-32); Bilirubin Total 0.3 mg/dL (0.2-1.0); Glucose Level 85 mg/dL (74-106); Magnesium 2.1 mg/dL (1.8-2.4); Potassium 4.1 mmol/L (3.5-5.1); Protein, Total 4.9 g/dL (6.4-8.2); Sodium Level 142 mmol/L (136-145)
[2020-11-30] MEDS ORDERED: SODIUM CHLORIDE 0.9% 10ML INJ IV ONE (07:43)
[2020-11-30] MEDS: METOPROLOL TAR 25 MG TAB PO SCH ×2 (07:44→20:17)
[2020-11-30] MEDS: ARFORMOTEROL TARTRATE 15 MCG/2 ML VIAL.NEB NEB SCH ×2 (07:54→19:25)
[2020-11-30] MEDS ORDERED: NA CHLORIDE 0.9% 250 ML IV ONE (08:00)
[2020-11-30] MEDS: ENSURE ENLIVE 237 ML CAN PO SCH ×2 (09:00→20:18)
[2020-11-30] MEDS: HOME MED 1 EA UNK (Fluticasone/Umeclidin/Vilanter [Trelegy Ellipta 100-62.5-25] Blst.W.Dev IH SCH (09:00)
[2020-11-30] MEDS: DRONABINOL 2.5 MG PO SCH ×2 (09:00→21:00)
[2020-11-30] MEDS: levoFLOXacin 750 MG TAB PO SCH (09:00)
[2020-11-30] MEDS: allopurinoL 100 MG TAB PO SCH (09:00)
[2020-11-30] MEDS: POVIDONE IODINE 10% TOP SCH (09:00)
[2020-11-30] MEDS: ISONIAZID 300 MG TAB PO SCH (09:00)
[2020-11-30] MEDS: BUSPIRONE HCL 5 MG TABLET PO SCH ×2 (09:00→20:17)
[2020-11-30] MEDS: APIXABAN 2.5 MG TABLET PO SCH ×2 (10:02→20:17)
[2020-11-30] MEDS: FINASTERIDE 5 MG TAB PO SCH (10:02)
[2020-11-30] MEDS: DOCUSATE NA 100 MG CAP PO SCH ×2 (10:02→20:17)
[2020-11-30] MEDS: TAMSULOSIN 0.4 MG SR CAP PO SCH (10:02)
[2020-11-30] MEDS: CLOPIDOGREL 75 MG TABLET PO SCH (10:02)
[2020-11-30] MEDS: THIAMINE HCL 100 MG TABLET PO SCH (10:02)
[2020-11-30] MEDS: MULTIVITAMIN TAB PO SCH (10:02)
[2020-11-30] MEDS: ZINC SULFATE 220 MG CAP PO SCH (10:02)
[2020-11-30] MEDS: ASCORBIC ACID 500 MG TABLET PO SCH (10:03)
[2020-11-30] MEDS: ETHAMBUTOL HCL 400 MG TAB PO SCH (10:03)
[2020-11-30] MEDS: LACTOBACILLUS/ACIDOPHILUS TAB PO SCH ×2 (10:03→20:17)
[2020-11-30] MEDS: PYRAZINAMIDE 500 MG TAB PO SCH (10:03)
[2020-11-30] MEDS: PANTOPRAZOLE 40MG TABLET PO SCH (10:03)
[2020-11-30] MEDS: PYRIDOXINE (VIT B6) 50 MG TAB PO SCH (10:04)
[2020-11-30] MEDS: SACUBITRIL/VALSARTAN 24/26 MG TAB PO SCH ×2 (10:04→20:18)
[2020-11-30] MEDS: NICOTINE 14 MG/PAT TD SCH (10:04)
[2020-11-30] MEDS: predniSONE 20 MG TAB PO SCH (10:10)
[2020-11-30] MEDS: CALCIUM CARBONATE 500 MG TAB PO SCH ×2 (11:00→22:44)
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
--- NOTE | 2020-11-30 14:13 | P.PN ---
Subjective Date of Service: 11/30/20 Primary Care Provider: detention doctor Chief Complaint: Pneumonia Subjective: No new changes (feels ~same, generalized weakness, breathing ok but gets dyspneic easily. low appetite) Review of Systems 10-point ROS is otherwise unremarkable Physical Examination - Vital Signs Temperature: 99.0 F Blood Pressure: 100/60 Pulse: 71 Respirations: 19 Pulse Ox (%): 96 - Studies Medications List Reviewed: Yes Assessment & Plan Physician Review Additional Text: Physical Exam General: Alert, In no apparent distress, cachectic appearing HEENT: normal conjunctiva, sclera anicteric Respiratory: Diminished, bilateral crackles/rales at bases Cardiovascular: No edema, Regular rate/rhythm, Normal S1 S2 Gastrointestinal: Soft, nontender, nondistended Musculoskeletal: Dry gangrene tip of big toe and 2nd toe Neurological: AAOx3, generalized weakness, nonfocal Problem List Acute on chronic hypoxemic respiratory failure secondary to 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 Pulm is following -patient completed Levaquin and doxycycline. Quantiferon gold test is pending. -bronchoalveolar lavage:-smear is positive for AFB, GNR growing as well - awaiting final cultures -Infectious disease input appreciated. -patient started on anti TB therapy. Monitor LFT periodically. -diuresed well with Lasix, continue home regimen - monitor closely, pt with borderline / low BP at times since admission -x-ray and CT negative for Osteomyelitis, Arterial doppler: Moderate distal peripheral arterial disease. Severe peripheral vascular disease involving the aorta, left iliac, common iliac, bilateral iliac and common femoral arteries. Patient will need follow up with vascular surgeon. -continue eliquis, plavix -fungal cystitis -patient completed Diflucan for ~5 days. Diflucan discontinued. -hematuria - resolved, chronic indwelling roca catheter. Code: DNR Dispo: SW/CM consulted, pt from SNF, awaiting final cultures, then will be clear to go back to SNf, will need isolation room would benefit from LTAC for isolation, further monitoring of HR/BP - he has had occasional runs of vtach, low BP, would be able to repeat BAL / AFB smear - if negative wouldn't need isolation patient says will think about it, doesn't want to "go to far away" Time Spent Managing Pts Care (In Minutes): 35
[2020-11-30] MEDS: ATORVASTATIN 40 MG TAB PO SCH (20:16)
[2020-11-30] MEDS: MIRTAZAPINE 15 MG TAB PO SCH (20:17)
[2020-11-30] MEDS: CODEINE 30MG/APAP 300MG TAB PO PRN (20:17)
[2020-12-01] MEDS: LEVOTHYROXINE SOD 0.075 MG TAB PO SCH (05:27)
[2020-12-01 06:22] LABS: BUN Blood Urea Nitrogen 36 mg/dL (7-18); Bicarbonate 31 mmol/L (21-32); Glucose Level 106 mg/dL (74-106); Potassium 4.3 mmol/L (3.5-5.1); Sodium Level 146 mmol/L (136-145)
[2020-12-01] MEDS: ARFORMOTEROL TARTRATE 15 MCG/2 ML VIAL.NEB NEB SCH ×2 (08:40→20:20)
[2020-12-01] MEDS: DRONABINOL 2.5 MG PO SCH ×2 (09:00→21:00)
[2020-12-01] MEDS: ENSURE ENLIVE 237 ML CAN PO SCH ×2 (09:00→21:39)
[2020-12-01] MEDS: HOME MED 1 EA UNK (Fluticasone/Umeclidin/Vilanter [Trelegy Ellipta 100-62.5-25] Blst.W.Dev IH SCH (09:00)
[2020-12-01] MEDS: ETHAMBUTOL HCL 400 MG TAB PO SCH (09:00)
[2020-12-01] MEDS: CALCIUM CARBONATE 500 MG TAB PO SCH ×2 (10:07→21:41)
--- NOTE | 2020-12-01 10:07 | P.PN ---
Subjective Date of Service: 12/01/20 Primary Care Provider: group home doctor Chief Complaint: Pneumonia Subjective: No new changes (reports feeling the same, tired, generalized weakness, dyspneic at times with movement, low appetite) Review of Systems 10-point ROS is otherwise unremarkable Physical Examination - Vital Signs Temperature: 98.0 F Blood Pressure: 132/69 Pulse: 65 Respirations: 19 Pulse Ox (%): 96 - Studies Medications List Reviewed: Yes Assessment & Plan Physician Review Additional Text: Physical Exam General: Alert, weak, cachectic HEENT: normal conjunctiva, sclera anicteric Respiratory: Diminished, mid bilateral crackles/rales at bases Cardiovascular: No edema, Regular rate/rhythm, Normal S1 S2 Gastrointestinal: Soft, nontender, nondistended Musculoskeletal: Dry gangrene tip of 1st and 2nd toe Neurological: AAOx3, generalized weakness, nonfocal Problem List Acute on chronic hypoxemic respiratory failure secondary to 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 Acute on chronic systolic congestive heart failure Acute pulmonary TB Acute cystitis - fungal, completed treatment Marked hypoalbuminemia Right great toe dry gangrene Hypocalcemia Atrial fibrillation on chronic anticoagulation therapy Hypertension Hypothyroidism CAD s/p CABG, stents, pacemaker defibrillator Severe PVD with chronic stenosis of the abdominal aorta at the level of the kidneys and chronic occlusion of the left common iliac artery -continue oral steroids, nebs, inhalers. Pulm is following -patient completed Levaquin and doxycycline. Quantiferon gold test is pending. -bronchoalveolar lavage:-smear is positive for AFB -BAL culture now showing stenotrophomonas, sensitive only to levaquin, pt was on levaquin from 11/18 - 11/29, will further discuss with ID/pulm -check CRP/procal today -patient started on anti TB therapy 11/25. Monitor LFT periodically. -ID recommend repeat AFB smear on 12/09, if negative, won't need respiratory isolation -diuresed well with Lasix, BP low/borderline, holding home lasix, pt with low PO intake, does not appear hyervolemic -x-ray and CT negative for Osteomyelitis, Arterial doppler: Moderate distal peripheral arterial disease. Severe peripheral vascular disease involving the aorta, left iliac, common iliac, bilateral iliac and common femoral arteries. Patient will need follow up with vascular surgeon. -continue eliquis, plavix -fungal cystitis -patient completed Diflucan for ~5 days. Diflucan discontinued. -hematuria - resolved, chronic indwelling roca catheter. Code: DNR Dispo: SW/JOSHUA consulted, pt from SNF, awaiting final cultures / antibiotic regimen, currently needing isolation room would benefit from LTAC for isolation, further monitoring of HR/BP - he has had occasional runs of vtach, low BP, would be able to repeat BAL / AFB smear - if negative wouldn't need isolation Patient states it is too far and would like to stay somewhere close Time Spent Managing Pts Care (In Minutes): 35
[2020-12-01] MEDS: ASCORBIC ACID 500 MG TABLET PO SCH (10:08)
[2020-12-01] MEDS: CLOPIDOGREL 75 MG TABLET PO SCH (10:08)
[2020-12-01] MEDS: ZINC SULFATE 220 MG CAP PO SCH (10:08)
[2020-12-01] MEDS: FINASTERIDE 5 MG TAB PO SCH (10:08)
[2020-12-01] MEDS: LACTOBACILLUS/ACIDOPHILUS TAB PO SCH ×2 (10:08→21:40)
[2020-12-01] MEDS: TAMSULOSIN 0.4 MG SR CAP PO SCH (10:09)
[2020-12-01] MEDS: APIXABAN 2.5 MG TABLET PO SCH ×2 (10:09→21:39)
[2020-12-01] MEDS: PANTOPRAZOLE 40MG TABLET PO SCH (10:09)
[2020-12-01] MEDS: THIAMINE HCL 100 MG TABLET PO SCH (10:09)
[2020-12-01] MEDS: MULTIVITAMIN TAB PO SCH (10:09)
[2020-12-01] MEDS: METOPROLOL TAR 25 MG TAB PO SCH ×2 (10:09→21:00)
[2020-12-01] MEDS: allopurinoL 100 MG TAB PO SCH (10:10)
[2020-12-01] MEDS: BUSPIRONE HCL 5 MG TABLET PO SCH ×2 (10:10→21:39)
[2020-12-01] MEDS: predniSONE 20 MG TAB PO SCH (10:10)
[2020-12-01] MEDS: DOCUSATE NA 100 MG CAP PO SCH ×2 (10:10→21:38)
[2020-12-01] MEDS: SACUBITRIL/VALSARTAN 24/26 MG TAB PO SCH ×2 (10:10→21:39)
[2020-12-01] MEDS: PYRAZINAMIDE 500 MG TAB PO SCH (10:11)
[2020-12-01] MEDS: ISONIAZID 300 MG TAB PO SCH (10:11)
[2020-12-01] MEDS: NICOTINE 14 MG/PAT TD SCH (10:13)
[2020-12-01] MEDS: PYRIDOXINE (VIT B6) 50 MG TAB PO SCH (10:14)
[2020-12-01] MEDS: POVIDONE IODINE 10% TOP SCH (10:14)
[2020-12-01] MEDS ORDERED: Levofloxacin 750mg IV 750 MG/150 ML BAG IV SCH (11:00)
[2020-12-01 11:48] LABS: Absolute Lymphocytes (CBC) 0.2 K/uL (0.7-4.9); Basophils % 0.2 % (0-1.3); Hematocrit 30.1 % (39.6-49.0); Lymphocytes % 2.8 % (15.3-44.8); MPV 8.4 fL (7.6-11.3); RBC Red Blood Cell Count 3.17 M/uL (4.33-5.43)
[2020-12-01] MEDS: CODEINE 30MG/APAP 300MG TAB PO PRN (13:45)
[2020-12-01] MEDS: ATORVASTATIN 40 MG TAB PO SCH (21:38)
[2020-12-01] MEDS: MIRTAZAPINE 15 MG TAB PO SCH (21:38)
[2020-12-02] MEDS: LEVOTHYROXINE SOD 0.075 MG TAB PO SCH (05:44)
[2020-12-02 06:58] LABS: Absolute Lymphocytes (CBC) 0.3 K/uL (0.7-4.9); Basophils % 0.4 % (0-1.3); Hematocrit 28.8 % (39.6-49.0); Lymphocytes % 4.3 % (15.3-44.8); MPV 8.3 fL (7.6-11.3); RBC Red Blood Cell Count 3.04 M/uL (4.33-5.43)
[2020-12-02 07:12] LABS: ALT/SGPT 24 U/L (12-78); AST/SGOT 64 U/L (15-37); Alkaline Phosphatase 117 U/L (45-117); BUN Blood Urea Nitrogen 32 mg/dL (7-18); Bicarbonate 31 mmol/L (21-32); Bilirubin Total 0.3 mg/dL (0.2-1.0); Glucose Level 97 mg/dL (74-106); Magnesium 2.2 mg/dL (1.8-2.4); Potassium 4.3 mmol/L (3.5-5.1); Sodium Level 147 mmol/L (136-145)
[2020-12-02] MEDS: ARFORMOTEROL TARTRATE 15 MCG/2 ML VIAL.NEB NEB SCH ×2 (08:00→19:45)
[2020-12-02] MEDS: ENSURE ENLIVE 237 ML CAN PO SCH ×2 (09:00→21:24)
[2020-12-02] MEDS: HOME MED 1 EA UNK (Fluticasone/Umeclidin/Vilanter [Trelegy Ellipta 100-62.5-25] Blst.W.Dev IH SCH (09:00)
[2020-12-02] MEDS: POVIDONE IODINE 10% TOP SCH (09:00)
[2020-12-02] MEDS: DRONABINOL 2.5 MG PO SCH ×2 (09:00→21:00)
[2020-12-02] MEDS: MULTIVITAMIN TAB PO SCH (09:00)
[2020-12-02] MEDS: NICOTINE 14 MG/PAT TD SCH (09:29)
[2020-12-02] MEDS: SACUBITRIL/VALSARTAN 24/26 MG TAB PO SCH ×2 (09:29→21:21)
[2020-12-02] MEDS: predniSONE 20 MG TAB PO SCH (09:30)
[2020-12-02] MEDS: FINASTERIDE 5 MG TAB PO SCH (09:30)
[2020-12-02] MEDS: DOCUSATE NA 100 MG CAP PO SCH ×2 (09:30→21:22)
[2020-12-02] MEDS: TAMSULOSIN 0.4 MG SR CAP PO SCH (09:31)
[2020-12-02] MEDS: ZINC SULFATE 220 MG CAP PO SCH (09:31)
[2020-12-02] MEDS: PANTOPRAZOLE 40MG TABLET PO SCH (09:31)
[2020-12-02] MEDS: allopurinoL 100 MG TAB PO SCH (09:31)
[2020-12-02] MEDS: BUSPIRONE HCL 5 MG TABLET PO SCH ×2 (09:31→21:22)
[2020-12-02] MEDS: METOPROLOL TAR 25 MG TAB PO SCH ×2 (09:31→21:00)
[2020-12-02] MEDS: CLOPIDOGREL 75 MG TABLET PO SCH (09:31)
[2020-12-02] MEDS: ASCORBIC ACID 500 MG TABLET PO SCH (09:31)
[2020-12-02] MEDS: THIAMINE HCL 100 MG TABLET PO SCH (09:32)
[2020-12-02] MEDS: APIXABAN 2.5 MG TABLET PO SCH ×2 (09:32→21:23)
[2020-12-02] MEDS: PYRAZINAMIDE 500 MG TAB PO SCH (09:33)
[2020-12-02] MEDS: ISONIAZID 300 MG TAB PO SCH (09:33)
[2020-12-02] MEDS: LACTOBACILLUS/ACIDOPHILUS TAB PO SCH ×2 (09:33→21:23)
[2020-12-02] MEDS: ETHAMBUTOL HCL 400 MG TAB PO SCH (09:34)
[2020-12-02] MEDS: PYRIDOXINE (VIT B6) 50 MG TAB PO SCH (09:34)
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
--- NOTE | 2020-12-02 11:02 | P.PN ---
Subjective Date of Service: 12/02/20 Primary Care Provider: intermediate doctor Chief Complaint: Pneumonia Subjective: No new changes (no acute events overnight. patient reports feeling ok, was up to bedside commode earlier, no complaints) Review of Systems 10-point ROS is otherwise unremarkable Physical Examination - Vital Signs Temperature: 98.7 F Blood Pressure: 108/61 Pulse: 63 Respirations: 20 Pulse Ox (%): 96 - Studies Medications List Reviewed: Yes Assessment & Plan Physician Review Additional Text: Physical Exam General: Alert, weak, cachectic HEENT: normal conjunctiva, sclera anicteric Respiratory: Diminished bilaterally, shallow respirations, faint wheeze throughout Cardiovascular: No edema, Regular rate/rhythm, Normal S1 S2 Gastrointestinal: Soft, nontender, nondistended Musculoskeletal: Dry gangrene tip of 1st and 2nd toe Neurological: AAOx3, generalized weakness Problem List Acute on chronic hypoxemic respiratory failure secondary to 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 Acute on chronic systolic congestive heart failure Acute pulmonary TB Acute cystitis - fungal, completed treatment Marked hypoalbuminemia Right great toe dry gangrene Hypocalcemia Atrial fibrillation on chronic anticoagulation therapy Hypertension Hypothyroidism CAD s/p CABG, stents, pacemaker defibrillator Severe PVD with chronic stenosis of the abdominal aorta at the level of the kidneys and chronic occlusion of the left common iliac artery -continue oral steroids, nebs, inhalers. Pulm is following -patient completed Levaquin and doxycycline. Quantiferon gold test is pending. -bronchoalveolar lavage:-smear is positive for AFB -BAL culture now showing stenotrophomonas, sensitive only to levaquin, pt was on levaquin from 11/18 - 11/29, clinically doing well, discussed with ID/pulm- hold off on further antibiotics at this time -patient started on anti TB therapy 11/25. Monitor LFT periodically - AST slightly elevated today -ID recommend repeat AFB smear on 12/09, if negative, won't need respiratory isolation -diuresed well with Lasix, BP low/borderline, holding home lasix, pt with low PO intake, and does not appear hyervolemic -x-ray and CT negative for Osteomyelitis, Arterial doppler: Moderate distal peripheral arterial disease. Severe peripheral vascular disease involving the aorta, left iliac, common iliac, bilateral iliac and common femoral arteries. Patient will need follow up with vascular surgeon. -continue eliquis, plavix -fungal cystitis -patient completed Diflucan for ~5 days. Diflucan discontinued. -hematuria - resolved, chronic indwelling roca catheter. Code: DNR Dispo: SW/JOSHUA consulted, pt from SNF, currently needing isolation room would benefit from LTAC for isolation, further monitoring of HR/BP - he has had occasional runs of vtach, low BP, would be able to repeat BAL / AFB smear - if negative wouldn't need isolation. Would benefit from vascular surgery eval as well for foot / PVD. Patient states it is too far and would like to stay somewhere close Time Spent Managing Pts Care (In Minutes): 35
[2020-12-02] MEDS: CALCIUM CARBONATE 500 MG TAB PO SCH ×2 (11:41→21:23)
[2020-12-02 14:26] LABS: ALT/SGPT 32 U/L (12-78); AST/SGOT 106 U/L (15-37); Albumin 2.2 g/dL (3.4-5.0); Alkaline Phosphatase 118 U/L (45-117); BUN Blood Urea Nitrogen 30 mg/dL (7-18); Bicarbonate 31 mmol/L (21-32); Bilirubin Total 0.4 mg/dL (0.2-1.0); Glucose Level 122 mg/dL (74-106); Protein, Total 5.5 g/dL (6.4-8.2); Sodium Level 143 mmol/L (136-145)
[2020-12-02] MEDS: CODEINE 30MG/APAP 300MG TAB PO PRN (15:08)
[2020-12-02] MEDS ORDERED: NA CHLORIDE 0.9% 250 ML IV PRN (21:00)
[2020-12-02] MEDS ORDERED: NA CHLORIDE 0.9% 250 ML IV ONE (21:20)
[2020-12-02] MEDS: ATORVASTATIN 40 MG TAB PO SCH (21:22)
[2020-12-02] MEDS: MIRTAZAPINE 15 MG TAB PO SCH (21:23)
[2020-12-03] MEDS: LEVOTHYROXINE SOD 0.075 MG TAB PO SCH (05:28)
[2020-12-03] MEDS: SACUBITRIL/VALSARTAN 24/26 MG TAB PO SCH ×2 (08:21→21:29)
[2020-12-03] MEDS: CLOPIDOGREL 75 MG TABLET PO SCH (08:22)
[2020-12-03] MEDS: THIAMINE HCL 100 MG TABLET PO SCH (08:22)
[2020-12-03] MEDS: LACTOBACILLUS/ACIDOPHILUS TAB PO SCH ×2 (08:22→21:29)
[2020-12-03] MEDS: allopurinoL 100 MG TAB PO SCH (08:22)
[2020-12-03] MEDS: PANTOPRAZOLE 40MG TABLET PO SCH (08:22)
[2020-12-03] MEDS: METOPROLOL TAR 25 MG TAB PO SCH ×2 (08:22→21:33)
[2020-12-03] MEDS: APIXABAN 2.5 MG TABLET PO SCH ×2 (08:22→21:33)
[2020-12-03] MEDS: TAMSULOSIN 0.4 MG SR CAP PO SCH (08:22)
[2020-12-03] MEDS: MULTIVITAMIN TAB PO SCH (08:22)
[2020-12-03] MEDS: CALCIUM CARBONATE 500 MG TAB PO SCH (08:22)
[2020-12-03] MEDS: BUSPIRONE HCL 5 MG TABLET PO SCH ×2 (08:22→21:31)
[2020-12-03] MEDS: predniSONE 20 MG TAB PO SCH (08:22)
[2020-12-03] MEDS: ASCORBIC ACID 500 MG TABLET PO SCH (08:22)
[2020-12-03] MEDS: FINASTERIDE 5 MG TAB PO SCH (08:23)
[2020-12-03] MEDS: NICOTINE 14 MG/PAT TD SCH (08:23)
[2020-12-03] MEDS: ISONIAZID 300 MG TAB PO SCH (08:23)
[2020-12-03] MEDS: ETHAMBUTOL HCL 400 MG TAB PO SCH (08:23)
[2020-12-03] MEDS: PYRIDOXINE (VIT B6) 50 MG TAB PO SCH (08:23)
[2020-12-03] MEDS: DOCUSATE NA 100 MG CAP PO SCH ×2 (08:23→21:32)
[2020-12-03] MEDS: ENSURE ENLIVE 237 ML CAN PO SCH ×2 (08:23→21:39)
[2020-12-03] MEDS: ZINC SULFATE 220 MG CAP PO SCH (08:23)
[2020-12-03] MEDS: PYRAZINAMIDE 500 MG TAB PO SCH (08:23)
[2020-12-03] MEDS: DRONABINOL 2.5 MG PO SCH ×2 (08:24→21:00)
[2020-12-03] MEDS: HOME MED 1 EA UNK (Fluticasone/Umeclidin/Vilanter [Trelegy Ellipta 100-62.5-25] Blst.W.Dev IH SCH (08:24)
[2020-12-03] MEDS: POVIDONE IODINE 10% TOP SCH (08:24)
[2020-12-03] MEDS: ARFORMOTEROL TARTRATE 15 MCG/2 ML VIAL.NEB NEB SCH ×2 (09:09→20:45)
--- NOTE | 2020-12-03 15:36 | P.PN ---
Subjective Date of Service: 12/03/20 Primary Care Provider: prison doctor Chief Complaint: Pneumonia Subjective: No new changes (feeling ok, SOB at times, especially with movement, no new complaints) Review of Systems 10-point ROS is otherwise unremarkable Physical Examination - Vital Signs Temperature: 98.2 F Blood Pressure: 130/76 Pulse: 75 Respirations: 19 Pulse Ox (%): 95 - Studies Medications List Reviewed: Yes Assessment & Plan Physician Review Additional Text: Physical Exam General: Alert, cachectic HEENT: normal conjunctiva, sclera anicteric Respiratory: Diminished bilaterally, shallow respirations, mild wheeze Cardiovascular: No edema, Regular rate/rhythm, Normal S1 S2 Gastrointestinal: Soft, nontender, nondistended Musculoskeletal: Dry gangrene tip of 1st and 2nd toe Neurological: AAOx3, generalized weakness Problem List Acute on chronic hypoxemic respiratory failure secondary to 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 Acute on chronic systolic congestive heart failure +AFB sputume Acute cystitis - fungal, completed treatment Marked hypoalbuminemia Right great toe dry gangrene Hypocalcemia Atrial fibrillation on chronic anticoagulation therapy Hypertension Hypothyroidism CAD s/p CABG, stents, pacemaker defibrillator Severe PVD with chronic stenosis of the abdominal aorta at the level of the kidneys and chronic occlusion of the left common iliac artery -continue oral steroids, nebs, inhalers. Pulm is following -patient completed Levaquin and doxycycline. Quantiferon gold test is pending. -bronchoalveolar lavage:-smear is positive for AFB, no speciation yet -BAL culture now showing stenotrophomonas, sensitive only to levaquin, pt was on levaquin from 11/18 - 11/29, clinically doing well, discussed with ID/pulm- hold off on further antibiotics at this time -patient started on anti TB therapy 11/25. Monitor LFT periodically - AST slightly elevated today -ID recommend repeat AFB smear on 12/09, if negative, won't need respiratory isolation -diuresed well with Lasix, BP low/borderline, holding lasix, pt with low PO intake, and does not appear hyervolemic -x-ray and CT negative for Osteomyelitis, Arterial doppler: Moderate distal peripheral arterial disease. Severe peripheral vascular disease involving the aorta, left iliac, common iliac, bilateral iliac and common femoral arteries. Patient will need follow up with vascular surgeon. -continue eliquis, plavix -fungal cystitis -patient completed Diflucan for ~5 days. Diflucan discontinued. -hematuria - resolved, chronic indwelling roca catheter. Code: DNR Dispo: would benefit from LTAC for isolation, further monitoring of HR/BP - he has had occasional runs of vtach, low BP, would be able to repeat BAL / AFB smear - if negative wouldn't need isolation. Would benefit from vascular surgery eval as well for foot / PVD. Patient agreeable to LTAC yesterday, SW/CM notified Time Spent Managing Pts Care (In Minutes): 35
[2020-12-03] MEDS: ATORVASTATIN 40 MG TAB PO SCH (21:00)
[2020-12-03] MEDS: MIRTAZAPINE 15 MG TAB PO SCH (21:32)
[2020-12-03] MEDS: CODEINE 30MG/APAP 300MG TAB PO PRN (21:40)
[2020-12-04] MEDS: MELATONIN 3 MG TABLET PO PRN (00:25)
[2020-12-04] MEDS: LEVOTHYROXINE SOD 0.075 MG TAB PO SCH (05:53)
--- NOTE | 2020-12-04 08:31 | P.PN ---
Subjective Date of Service: 12/04/20 Primary Care Provider: shelter doctor Chief Complaint: Pneumonia Subjective: No C/O voiced No complaints at this time. Pt reports he is feeling ok today. Physical Examination - Vital Signs Temperature: 97.8 F Blood Pressure: 96/51 Pulse: 67 Respirations: 18 Pulse Ox (%): 97 - Physical Exam General: Alert HEENT: Normocephalic, PERRLA Neck: Supple Respiratory: Diminished Cardiovascular: No edema Gastrointestinal: Soft and benign Musculoskeletal: Other (left BKA ) Integumentary: Other (arterial ulcer to right great and second toe. ) - Studies Medications List Reviewed: Yes Assessment And Plan - Plan Continue betadine application to both arterial wounds and wrap with kerlix. Arterial droppler suggest PVD, pt may need consultation by a surgeon. Pulmonary following. Pt had a bronchoscopy done on 11/24 results grew stenotrophomonas. Pt covered by levaquin. Pt is currently on rifampin, pyrazinamide, ethambutol and isoniazid. Medical management per primary team Continue to monitor CBC and BMP Continue to monitor for signs and symptoms of infection Plan of care discussed with Dr. Garcia Thank you for consultation Physician Review Additional Text: Physical Exam General: Alert, cachectic HEENT: normal conjunctiva, sclera anicteric Respiratory: Diminished bilaterally, shallow respirations, mild wheeze Cardiovascular: No edema, Regular rate/rhythm, Normal S1 S2 Gastrointestinal: Soft, nontender, nondistended Musculoskeletal: Dry gangrene tip of 1st and 2nd toe Neurological: AAOx3, generalized weakness Problem List Acute on chronic hypoxemic respiratory failure secondary to 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 Acute on chronic systolic congestive heart failure +AFB sputume Acute cystitis - fungal, completed treatment Marked hypoalbuminemia Right great toe dry gangrene Hypocalcemia Atrial fibrillation on chronic anticoagulation therapy Hypertension Hypothyroidism CAD s/p CABG, stents, pacemaker defibrillator Severe PVD with chronic stenosis of the abdominal aorta at the level of the kidneys and chronic occlusion of the left common iliac artery -continue oral steroids, nebs, inhalers. Pulm is following -patient completed Levaquin and doxycycline. Quantiferon gold test is pending. -bronchoalveolar lavage:-smear is positive for AFB, no speciation yet -BAL culture now showing stenotrophomonas, sensitive only to levaquin, pt was on levaquin from 11/18 - 11/29, clinically doing well, discussed with ID/pulm- hold off on further antibiotics at this time -patient started on anti TB therapy 11/25. Monitor LFT periodically - AST slightly elevated today -ID recommend repeat AFB smear on 12/09, if negative, won't need respiratory isolation -diuresed well with Lasix, BP low/borderline, holding lasix, pt with low PO intake, and does not appear hyervolemic -x-ray and CT negative for Osteomyelitis, Arterial doppler: Moderate distal peripheral arterial disease. Severe peripheral vascular disease involving the aorta, left iliac, common iliac, bilateral iliac and common femoral arteries. Patient will need follow up with vascular surgeon. -continue eliquis, plavix -fungal cystitis -patient completed Diflucan for ~5 days. Diflucan discontinued. -hematuria - resolved, chronic indwelling roca catheter. Code: DNR Dispo: would benefit from LTAC for isolation, further monitoring of HR/BP - he has had occasional runs of vtach, low BP, would be able to repeat BAL / AFB smear - if negative wouldn't need isolation. Would benefit from vascular surgery eval as well for foot / PVD. Patient agreeable to LTAC yesterday, SW/CM notified
[2020-12-04] MEDS: BUSPIRONE HCL 5 MG TABLET PO SCH ×2 (09:00→21:22)
[2020-12-04] MEDS: DRONABINOL 2.5 MG PO SCH ×2 (09:00→20:56)
[2020-12-04] MEDS: HOME MED 1 EA UNK (Fluticasone/Umeclidin/Vilanter [Trelegy Ellipta 100-62.5-25] Blst.W.Dev IH SCH (09:00)
[2020-12-04] MEDS: ENSURE ENLIVE 237 ML CAN PO SCH ×2 (09:00→21:23)
[2020-12-04] MEDS: ARFORMOTEROL TARTRATE 15 MCG/2 ML VIAL.NEB NEB SCH ×2 (09:00→19:30)
[2020-12-04] MEDS: PYRAZINAMIDE 500 MG TAB PO SCH (09:54)
[2020-12-04] MEDS: ETHAMBUTOL HCL 400 MG TAB PO SCH (09:54)
[2020-12-04] MEDS: ISONIAZID 300 MG TAB PO SCH (09:55)
[2020-12-04] MEDS: PYRIDOXINE (VIT B6) 50 MG TAB PO SCH (09:56)
[2020-12-04] MEDS: TAMSULOSIN 0.4 MG SR CAP PO SCH (09:57)
[2020-12-04] MEDS: APIXABAN 2.5 MG TABLET PO SCH ×2 (09:57→21:20)
[2020-12-04] MEDS: predniSONE 20 MG TAB PO SCH (09:57)
[2020-12-04] MEDS: DOCUSATE NA 100 MG CAP PO SCH ×2 (09:57→21:22)
[2020-12-04] MEDS: allopurinoL 100 MG TAB PO SCH (09:57)
[2020-12-04] MEDS: METOPROLOL TAR 25 MG TAB PO SCH ×2 (09:57→21:00)
[2020-12-04] MEDS: SACUBITRIL/VALSARTAN 24/26 MG TAB PO SCH ×2 (09:58→20:58)
[2020-12-04] MEDS: MULTIVITAMIN TAB PO SCH (09:58)
[2020-12-04] MEDS: CODEINE 30MG/APAP 300MG TAB PO PRN (09:58)
[2020-12-04] MEDS: PANTOPRAZOLE 40MG TABLET PO SCH (09:58)
[2020-12-04] MEDS: NICOTINE 14 MG/PAT TD SCH (09:59)
[2020-12-04] MEDS: FINASTERIDE 5 MG TAB PO SCH (09:59)
[2020-12-04] MEDS: CLOPIDOGREL 75 MG TABLET PO SCH (09:59)
[2020-12-04] MEDS: POVIDONE IODINE 10% TOP SCH (10:01)
[2020-12-04] MEDS: LACTOBACILLUS/ACIDOPHILUS TAB PO SCH ×2 (10:02→21:20)
--- NOTE | 2020-12-04 13:32 | P.PN ---
Subjective Date of Service: 12/04/20 Primary Care Provider: [facility] doctor Chief Complaint: Pneumonia Subjective: No new changes (No acute events overnight, patient reports feeling about the same, without any new complaints this morning) Review of Systems 10-point ROS is otherwise unremarkable Physical Examination - Vital Signs Temperature: 98.0 F Blood Pressure: 115/64 Pulse: 64 Respirations: 20 Pulse Ox (%): 98 - Studies Medications List Reviewed: Yes Assessment & Plan Physician Review Additional Text: Physical Exam General: AAOx3, cachectic HEENT: normal conjunctiva, sclera anicteric Respiratory: Diminished bilaterally, shallow respirations Cardiovascular: No edema, Regular rate/rhythm, Normal S1 S2 Gastrointestinal: Soft, nontender, nondistended Musculoskeletal: Dry gangrene tip of 1st and 2nd toe Neurological: AAOx3, generalized weakness Problem List Acute on chronic hypoxemic respiratory failure secondary to 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 Pulm is following -patient completed Levaquin and doxycycline. Quantiferon gold test is pending. -bronchoalveolar lavage:-smear is positive for AFB, awaiting culture results -BAL culture now showing stenotrophomonas, sensitive only to levaquin, pt was on levaquin from 11/18 - 11/29, clinically doing well, discussed with ID/pulm- hold off on further antibiotics at this time -patient started on anti TB therapy 11/25. Monitor LFT periodically -ID recommend repeat AFB smear on 12/09, if negative, won't need respiratory isolation -diuresed well with Lasix early on in hospitalization, BP low/borderline, holding lasix now, pt with low PO intake, and does not appear hyervolemic -x-ray and CT negative for Osteomyelitis, Arterial doppler: Moderate distal peripheral arterial disease. Severe peripheral vascular disease involving the aorta, left iliac, common iliac, bilateral iliac and common femoral arteries. Patient will need follow up with vascular surgeon. -continue eliquis, plavix -fungal cystitis -patient completed Diflucan for ~5 days. Diflucan discontinued. Code: DNR Dispo: SW/CM consulted for LTAC. patient is agreeable would benefit from LTAC for isolation, further monitoring of HR/BP - he has had occasional runs of vtach, low BP, would be able to repeat BAL / AFB smear - if negative wouldn't need isolation. Would benefit from vascular surgery eval as well for severe PVD and dry gangrene of foot Time Spent Managing Pts Care (In Minutes): 35
[2020-12-04] MEDS ORDERED: NA CHLORIDE 0.9% 250 ML IV ONE (20:55)
[2020-12-04] MEDS: ATORVASTATIN 40 MG TAB PO SCH (21:00)
[2020-12-04] MEDS: MIRTAZAPINE 15 MG TAB PO SCH (21:20)
[2020-12-05] MEDS: LEVOTHYROXINE SOD 0.075 MG TAB PO SCH (05:38)
[2020-12-05 06:05] LABS: Absolute Lymphocytes (CBC) 0.3 K/uL (0.7-4.9); Basophils % 0.6 % (0-1.3); Hematocrit 28.6 % (39.6-49.0); Lymphocytes % 6.1 % (15.3-44.8); MPV 8.1 fL (7.6-11.3); RBC Red Blood Cell Count 3.02 M/uL (4.33-5.43)
[2020-12-05 06:22] LABS: ALT/SGPT 32 U/L (12-78); AST/SGOT 31 U/L (15-37); Albumin 1.9 g/dL (3.4-5.0); Alkaline Phosphatase 109 U/L (45-117); BUN Blood Urea Nitrogen 24 mg/dL (7-18); Bicarbonate 29 mmol/L (21-32); Bilirubin Total 0.2 mg/dL (0.2-1.0); Glucose Level 101 mg/dL (74-106); Protein, Total 5.1 g/dL (6.4-8.2); Sodium Level 144 mmol/L (136-145)
[2020-12-05] MEDS: ARFORMOTEROL TARTRATE 15 MCG/2 ML VIAL.NEB NEB SCH ×2 (08:02→20:35)
[2020-12-05] MEDS: LACTOBACILLUS/ACIDOPHILUS TAB PO SCH ×2 (08:44→20:49)
[2020-12-05] MEDS: allopurinoL 100 MG TAB PO SCH (08:44)
[2020-12-05] MEDS: CLOPIDOGREL 75 MG TABLET PO SCH (08:44)
[2020-12-05] MEDS: CODEINE 30MG/APAP 300MG TAB PO PRN (08:44)
[2020-12-05] MEDS: predniSONE 20 MG TAB PO SCH (08:44)
[2020-12-05] MEDS: METOPROLOL TAR 25 MG TAB PO SCH ×2 (08:44→21:00)
[2020-12-05] MEDS: FINASTERIDE 5 MG TAB PO SCH (08:45)
[2020-12-05] MEDS: TAMSULOSIN 0.4 MG SR CAP PO SCH (08:45)
[2020-12-05] MEDS: MULTIVITAMIN TAB PO SCH (08:45)
[2020-12-05] MEDS: DOCUSATE NA 100 MG CAP PO SCH ×2 (08:45→20:45)
[2020-12-05] MEDS: PANTOPRAZOLE 40MG TABLET PO SCH (08:45)
[2020-12-05] MEDS: BUSPIRONE HCL 5 MG TABLET PO SCH ×2 (08:45→20:49)
[2020-12-05] MEDS: APIXABAN 2.5 MG TABLET PO SCH ×2 (08:45→20:49)
[2020-12-05] MEDS: ISONIAZID 300 MG TAB PO SCH (08:46)
[2020-12-05] MEDS: PYRAZINAMIDE 500 MG TAB PO SCH (08:46)
[2020-12-05] MEDS: NICOTINE 14 MG/PAT TD SCH (08:46)
[2020-12-05] MEDS: SACUBITRIL/VALSARTAN 24/26 MG TAB PO SCH ×2 (08:46→20:50)
[2020-12-05] MEDS: PYRIDOXINE (VIT B6) 50 MG TAB PO SCH (08:46)
[2020-12-05] MEDS: ETHAMBUTOL HCL 400 MG TAB PO SCH (08:46)
[2020-12-05] MEDS: HOME MED 1 EA UNK (Fluticasone/Umeclidin/Vilanter [Trelegy Ellipta 100-62.5-25] Blst.W.Dev IH SCH (08:47)
[2020-12-05] MEDS: DRONABINOL 2.5 MG PO SCH ×2 (08:47→21:00)
[2020-12-05] MEDS: ENSURE ENLIVE 237 ML CAN PO SCH ×2 (08:47→23:31)
[2020-12-05] MEDS: POVIDONE IODINE 10% TOP SCH (08:48)
--- NOTE | 2020-12-05 12:49 | P.PN ---
Subjective Date of Service: 12/05/20 Primary Care Provider: long term doctor Chief Complaint: Pneumonia Subjective: No new changes (feels the same, breathing ok, voiding, appetite is "ok", awaiting tammie approval) Review of Systems 10-point ROS is otherwise unremarkable Physical Examination - Vital Signs Temperature: 98.1 F Blood Pressure: 126/61 Pulse: 58 Respirations: 17 Pulse Ox (%): 95 - Studies Medications List Reviewed: Yes Assessment & Plan Physician Review Additional Text: Physical Exam General: AAOx3, cachectic HEENT: normal conjunctiva, sclera anicteric Respiratory: Diminished bilaterally, shallow respirations, nonlabored Cardiovascular: No edema, Regular rate/rhythm, Normal S1 S2 Gastrointestinal: Soft, nontender, nondistended Musculoskeletal: Dry gangrene tip of 1st and 2nd toe Neurological: generalized weakness, nonfocal Problem List Acute on chronic hypoxemic respiratory failure secondary to 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 Pulm is following -patient completed Levaquin and doxycycline. Quantiferon gold test is pending. -bronchoalveolar lavage (11/24):-smear is positive for AFB, awaiting culture results -BAL culture now showing stenotrophomonas, sensitive only to levaquin, pt was on levaquin from 11/18 - 11/29, clinically doing well, discussed with ID/pulm- hold off on further antibiotics at this time -patient started on anti TB therapy 11/25. Monitor LFT periodically -ID recommend repeat AFB smear on 12/09, if negative, won't need respiratory isolation -diuresed well with Lasix early on in hospitalization, BP low/borderline, holding lasix now, pt with low PO intake, and does not appear hyervolemic -x-ray and CT negative for Osteomyelitis, Arterial doppler: Moderate distal peripheral arterial disease. Severe peripheral vascular disease involving the aorta, left iliac, common iliac, bilateral iliac and common femoral arteries. Patient will need follow up with vascular surgeon. -continue eliquis, plavix -fungal cystitis -patient completed Diflucan for ~5 days. Diflucan discontinued. Code: DNR Dispo: SW/CM consulted for LTAC. patient is agreeable would benefit from LTAC for isolation, further monitoring of HR/BP - he has had occasional runs of vtach, low BP, would be able to repeat BAL / AFB smear - if negative wouldn't need isolation. Would benefit from vascular surgery eval as well for severe PVD and dry gangrene of foot Time Spent Managing Pts Care (In Minutes): 35
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
[2020-12-05] MEDS: IPRATROPIUM BROM 0.5MG/2.5ML NEB PRN (20:35)
[2020-12-05] MEDS: ATORVASTATIN 40 MG TAB PO SCH (20:49)
[2020-12-05] MEDS: MELATONIN 3 MG TABLET PO PRN (20:50)
[2020-12-05] MEDS: MIRTAZAPINE 15 MG TAB PO SCH (20:50)
[2020-12-06] MEDS: LEVOTHYROXINE SOD 0.075 MG TAB PO SCH (05:47)
[2020-12-06] MEDS: ARFORMOTEROL TARTRATE 15 MCG/2 ML VIAL.NEB NEB SCH ×2 (07:34→20:10)
[2020-12-06] MEDS: PANTOPRAZOLE 40MG TABLET PO SCH (08:56)
[2020-12-06] MEDS: MULTIVITAMIN TAB PO SCH (08:56)
[2020-12-06] MEDS: DOCUSATE NA 100 MG CAP PO SCH ×2 (08:56→21:21)
[2020-12-06] MEDS: allopurinoL 100 MG TAB PO SCH (08:56)
[2020-12-06] MEDS: APIXABAN 2.5 MG TABLET PO SCH ×2 (08:56→21:21)
[2020-12-06] MEDS: METOPROLOL TAR 25 MG TAB PO SCH ×2 (08:56→21:00)
[2020-12-06] MEDS: ETHAMBUTOL HCL 400 MG TAB PO SCH (08:58)
[2020-12-06] MEDS: CLOPIDOGREL 75 MG TABLET PO SCH (08:58)
[2020-12-06] MEDS: PYRAZINAMIDE 500 MG TAB PO SCH (08:58)
[2020-12-06] MEDS: PYRIDOXINE (VIT B6) 50 MG TAB PO SCH (08:58)
[2020-12-06] MEDS: LACTOBACILLUS/ACIDOPHILUS TAB PO SCH ×2 (08:59→21:20)
[2020-12-06] MEDS: SACUBITRIL/VALSARTAN 24/26 MG TAB PO SCH ×2 (08:59→21:20)
[2020-12-06] MEDS: HOME MED 1 EA UNK (Fluticasone/Umeclidin/Vilanter [Trelegy Ellipta 100-62.5-25] Blst.W.Dev IH SCH (09:00)
[2020-12-06] MEDS: TAMSULOSIN 0.4 MG SR CAP PO SCH (09:00)
[2020-12-06] MEDS: CODEINE 30MG/APAP 300MG TAB PO PRN ×2 (09:00→17:46)
[2020-12-06] MEDS: ISONIAZID 300 MG TAB PO SCH (09:00)
[2020-12-06] MEDS: ENSURE ENLIVE 237 ML CAN PO SCH ×3 (09:00→21:00)
[2020-12-06] MEDS: NICOTINE 14 MG/PAT TD SCH (09:00)
[2020-12-06] MEDS: BUSPIRONE HCL 5 MG TABLET PO SCH ×2 (09:00→21:21)
[2020-12-06] MEDS: FINASTERIDE 5 MG TAB PO SCH (09:00)
[2020-12-06] MEDS: POVIDONE IODINE 10% TOP SCH (09:00)
[2020-12-06] MEDS: DRONABINOL 2.5 MG PO SCH ×2 (09:00→21:00)
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
--- NOTE | 2020-12-06 15:51 | P.PN ---
Subjective Date of Service: 12/06/20 Primary Care Provider: long term doctor Chief Complaint: Pneumonia Patient has no complain today. He is stable on his baseline oxygen. He denies any coughing. Physical Examination - Vital Signs Temperature: 98.1 F Blood Pressure: 103/61 Pulse: 71 Respirations: 19 Pulse Ox (%): 96 - Physical Exam General: Alert, In no apparent distress, Oriented x3 HEENT: Mucous membr. moist/pink Neck: Supple Respiratory: Clear to auscultation bilaterally, Normal air movement Cardiovascular: No edema, Regular rate/rhythm, Normal S1 S2 Gastrointestinal: Normal bowel sounds, Soft and benign, Non-distended Musculoskeletal: Other (Dry gangrene at the tip right 2nd and 3rd toes.) Integumentary: No rashes Neurological: Normal strength at 5/5 x4 extr, Cranial nerves 3-12 intact - Studies Medications List Reviewed: Yes Assessment And Plan - Current Problems (Diagnosis) (1) Acute respiratory failure with hypoxia Current Visit: No Status: Resolved (2) COPD exacerbation Onset Date: 08/13/18 Current Visit: No Status: Acute (3) Emphysematous bleb of lung Current Visit: No Status: Acute (4) Pneumonia Current Visit: No Status: Acute Qualifiers: Pneumonia type: due to unspecified organism Laterality: right (5) CAD (coronary artery disease) Onset Date: 08/13/18 Current Visit: No Status: Chronic Qualifiers: Coronary Disease-Associated Artery/Lesion type: [place] artery [place] vs. transplanted heart: [place] heart Associated angina: without angina Qualified Code(s): I25.10 - Atherosclerotic heart disease of [place] coronary artery without angina pectoris (6) Chronic systolic heart failure Current Visit: Yes Status: Acute (7) Peripheral vascular disease Current Visit: Yes Status: Acute (8) Pulmonary TB Current Visit: Yes Status: Acute - Plan Acute on chronic hypoxemic respiratory failure secondary to 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 Acute on chronic systolic congestive heart failure Acute cystitis - fungal Marked hypoalbuminemia Right great toe arterial ulceration Hypocalcemia Atrial fibrillation on chronic anticoagulation therapy Hypertension Hypothyroidism CAD s/p CABG, stents, pacemaker defibrillator Severe PVD with chronic stenosis of the abdominal aorta at the level of the kidneys and chronic occlusion of the left common iliac artery -continue oral steroids, nebs, inhalers. Reduce steroid dose to 20 mg daily. -pulm is following. -patient completed Levaquin and doxycycline. Quantiferon gold test is pending. -bronchoalveolar lavage:-smear is positive for AFB. -Infectious disease input appreciated. -patient started on anti TB therapy. Monitor LFT periodically. -he diuresed well with Lasix, continue home regimen -x-ray and CT negative for Osteomyelitis, Arterial doppler: Moderate distal peripheral arterial disease. Severe peripheral vascular disease involving the aorta, left iliac, common iliac, bilateral iliac and common femoral arteries. -patient will need follow up with vascular surgeon. -continues eliquis and aspirin. -hypocalcemia - replete calcium as needed. -fungal cystitis -patient to Diflucan for about 5 days. Probably asymptomatic candiduria. Diflucan discontinued. -hematuria - resolved -chronic indwelling roca catheter. Physician Review: Patient Assessed, Agree with Above Assessment and Plan Physician Review Additional Text: Problem List Acute on chronic hypoxemic respiratory failure secondary to 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 -patient completed Levaquin and doxycycline. Quantiferon gold test is still pending. -bronchoalveolar lavage (11/24):-smear is positive for AFB, awaiting culture results -BAL culture now showing stenotrophomonas, sensitive only to levaquin, pt was on levaquin from 11/18 - 11/29, clinically doing well, discussed with ID/pulm- hold off on further antibiotics at this time -patient started on anti TB therapy 11/25. Monitor LFT periodically -ID recommend repeat AFB smear on 12/09, if negative, won't need respiratory isolation. -He diuresed well with Lasix early on in hospitalization, BP low/borderline, holding lasix now, pt with low PO intake, and appeared compensated for CHF. -x-ray and CT negative for Osteomyelitis, Arterial doppler: Moderate distal peripheral arterial disease. Severe peripheral vascular disease involving the aorta, left iliac, common iliac, bilateral iliac and common femoral arteries. Patient will need follow up with vascular surgeon. -continue eliquis, plavix -fungal cystitis -patient completed Diflucan for ~5 days. Diflucan discontinued. Code: DNR Dispo: SW/JOSHUA consulted for LTAC. patient is agreeable would benefit from LTAC for isolation, further monitoring of HR/BP - he has had occasional runs of vtach, low BP, would be able to repeat BAL / AFB smear - if negative wouldn't need isolation. Would benefit from vascular surgery eval as well for severe PVD and dry gangrene of foot
[2020-12-06] MEDS: ATORVASTATIN 40 MG TAB PO SCH (21:00)
[2020-12-06] MEDS: MIRTAZAPINE 15 MG TAB PO SCH (21:22)
[2020-12-07] MEDS: LEVOTHYROXINE SOD 0.075 MG TAB PO SCH (06:00)
[2020-12-07] MEDS: ARFORMOTEROL TARTRATE 15 MCG/2 ML VIAL.NEB NEB SCH ×2 (08:00→20:15)
[2020-12-07] MEDS: HOME MED 1 EA UNK (Fluticasone/Umeclidin/Vilanter [Trelegy Ellipta 100-62.5-25] Blst.W.Dev IH SCH (09:00)
[2020-12-07] MEDS: ENSURE ENLIVE 237 ML CAN PO SCH ×2 (09:00→21:56)
[2020-12-07] MEDS: POVIDONE IODINE 10% TOP SCH (09:00)
[2020-12-07] MEDS: DRONABINOL 2.5 MG PO SCH ×2 (09:00→21:00)
[2020-12-07] MEDS: METOPROLOL TAR 25 MG TAB PO SCH ×2 (09:21→21:00)
[2020-12-07] MEDS: TAMSULOSIN 0.4 MG SR CAP PO SCH (09:21)
[2020-12-07] MEDS: allopurinoL 100 MG TAB PO SCH (09:21)
[2020-12-07] MEDS: BUSPIRONE HCL 5 MG TABLET PO SCH ×2 (09:21→21:49)
[2020-12-07] MEDS: SACUBITRIL/VALSARTAN 24/26 MG TAB PO SCH ×2 (09:22→21:50)
[2020-12-07] MEDS: PYRIDOXINE (VIT B6) 50 MG TAB PO SCH (09:24)
[2020-12-07] MEDS: ETHAMBUTOL HCL 400 MG TAB PO SCH (09:24)
[2020-12-07] MEDS: FINASTERIDE 5 MG TAB PO SCH (09:24)
[2020-12-07] MEDS: MULTIVITAMIN TAB PO SCH (09:24)
[2020-12-07] MEDS: CLOPIDOGREL 75 MG TABLET PO SCH (09:24)
[2020-12-07] MEDS: APIXABAN 2.5 MG TABLET PO SCH ×2 (09:24→21:50)
[2020-12-07] MEDS: DOCUSATE NA 100 MG CAP PO SCH ×2 (09:24→21:46)
[2020-12-07] MEDS: PANTOPRAZOLE 40MG TABLET PO SCH (09:25)
[2020-12-07] MEDS: ISONIAZID 300 MG TAB PO SCH (09:25)
[2020-12-07] MEDS: PYRAZINAMIDE 500 MG TAB PO SCH (09:25)
[2020-12-07] MEDS: NICOTINE 14 MG/PAT TD SCH (09:26)
[2020-12-07] MEDS: LACTOBACILLUS/ACIDOPHILUS TAB PO SCH ×2 (09:31→21:50)
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
--- NOTE | 2020-12-07 14:42 | P.PN ---
Subjective Date of Service: 12/07/20 Primary Care Provider: retirement doctor Chief Complaint: Pneumonia Patient has no complain. He is stable on his baseline oxygen. Physical Examination - Vital Signs Temperature: 99.5 F Blood Pressure: 112/62 Pulse: 67 Respirations: 22 Pulse Ox (%): 96 - Physical Exam General: Alert, In no apparent distress Neck: JVD not distended Respiratory: Diminished, Other (No rhonchi or rales.) Cardiovascular: No edema, Regular rate/rhythm, Normal S1 S2 Gastrointestinal: Soft and benign, Non-distended, No tenderness Musculoskeletal: Other (Dry Gangrene right great toes and tip of the right 2nd toe.) Neurological: Other (No focal motor deficit.) - Studies Medications List Reviewed: Yes Assessment And Plan - Current Problems (Diagnosis) (1) Acute respiratory failure with hypoxia Current Visit: No Status: Resolved (2) COPD exacerbation Onset Date: 08/13/18 Current Visit: No Status: Acute (3) Emphysematous bleb of lung Current Visit: No Status: Acute (4) Pneumonia Current Visit: No Status: Acute Qualifiers: Pneumonia type: due to unspecified organism Laterality: right (5) CAD (coronary artery disease) Onset Date: 08/13/18 Current Visit: No Status: Chronic Qualifiers: Coronary Disease-Associated Artery/Lesion type: [place] artery [place] vs. transplanted heart: [place] heart Associated angina: without angina Qualified Code(s): I25.10 - Atherosclerotic heart disease of [place] coronary artery without angina pectoris (6) Chronic systolic heart failure Current Visit: Yes Status: Acute (7) Peripheral vascular disease Current Visit: Yes Status: Acute (8) Pulmonary TB Current Visit: Yes Status: Acute Physician Review: Patient Assessed, Agree with Above Assessment and Plan Physician Review Additional Text: Problem List Acute on chronic hypoxemic respiratory failure secondary to 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 -patient completed Levaquin and doxycycline. Quantiferon gold test is still pending. -bronchoalveolar lavage (11/24):-smear is positive for AFB, awaiting culture results -BAL culture now showing stenotrophomonas, sensitive only to levaquin, pt was on levaquin from 11/18 - 11/29, clinically doing well, discussed with ID/pulm- hold off on further antibiotics at this time -patient started on anti TB therapy 11/25. Monitor LFT periodically -ID recommend repeat AFB smear on 12/09, if negative, won't need respiratory isolation. -He diuresed well with Lasix early on in hospitalization, BP low/borderline. Lasix on hold, pt with low PO intake, and appeared compensated for CHF. -x-ray and CT negative for Osteomyelitis, Arterial doppler: Moderate distal peripheral arterial disease. Severe peripheral vascular disease involving the aorta, left iliac, common iliac, bilateral iliac and common femoral arteries. Patient will need follow up with vascular surgeon. -continue eliquis, plavix -fungal cystitis -patient completed Diflucan for ~5 days. Diflucan discontinued. Code: DNR Dispo: SW/CM consulted for LTAC. patient is agreeable would benefit from LTAC for isolation, further monitoring of HR/BP - he has had occasional runs of vtach, low BP, Repeat BAL / AFB smear - if negative wouldn't need isolation. Would benefit from vascular surgery eval as well for severe PVD and dry gangrene once off isolation.
[2020-12-07] MEDS: ATORVASTATIN 40 MG TAB PO SCH (21:00)
[2020-12-07] MEDS: MIRTAZAPINE 15 MG TAB PO SCH (21:50)
[2020-12-08] MEDS: IPRATROPIUM BROM 0.5MG/2.5ML NEB PRN ×2 (01:30→07:32)
[2020-12-08] MEDS: LEVOTHYROXINE SOD 0.075 MG TAB PO SCH (05:31)
[2020-12-08] MEDS: ARFORMOTEROL TARTRATE 15 MCG/2 ML VIAL.NEB NEB SCH ×2 (07:32→19:52)
[2020-12-08] MEDS: DRONABINOL 2.5 MG PO SCH ×2 (09:00→21:00)
[2020-12-08] MEDS: POVIDONE IODINE 10% TOP SCH (09:00)
[2020-12-08] MEDS: HOME MED 1 EA UNK (Fluticasone/Umeclidin/Vilanter [Trelegy Ellipta 100-62.5-25] Blst.W.Dev IH SCH (09:00)
[2020-12-08] MEDS: ENSURE ENLIVE 237 ML CAN PO SCH ×2 (09:00→22:15)
[2020-12-08] MEDS: NICOTINE 14 MG/PAT TD SCH (09:39)
[2020-12-08] MEDS: PYRIDOXINE (VIT B6) 50 MG TAB PO SCH (09:39)
[2020-12-08] MEDS: PYRAZINAMIDE 500 MG TAB PO SCH (09:39)
[2020-12-08] MEDS: ISONIAZID 300 MG TAB PO SCH (09:39)
[2020-12-08] MEDS: ETHAMBUTOL HCL 400 MG TAB PO SCH (09:39)
[2020-12-08] MEDS: PANTOPRAZOLE 40MG TABLET PO SCH (09:40)
[2020-12-08] MEDS: LACTOBACILLUS/ACIDOPHILUS TAB PO SCH ×2 (09:40→22:12)
[2020-12-08] MEDS: DOCUSATE NA 100 MG CAP PO SCH ×2 (09:40→22:12)
[2020-12-08] MEDS: METOPROLOL TAR 25 MG TAB PO SCH ×2 (09:40→22:09)
[2020-12-08] MEDS: APIXABAN 2.5 MG TABLET PO SCH ×2 (09:40→22:10)
[2020-12-08] MEDS: MULTIVITAMIN TAB PO SCH (09:40)
[2020-12-08] MEDS: allopurinoL 100 MG TAB PO SCH (09:40)
[2020-12-08] MEDS: SACUBITRIL/VALSARTAN 24/26 MG TAB PO SCH ×2 (09:40→22:12)
[2020-12-08] MEDS: TAMSULOSIN 0.4 MG SR CAP PO SCH (09:43)
[2020-12-08] MEDS: BUSPIRONE HCL 5 MG TABLET PO SCH ×2 (09:43→22:11)
[2020-12-08] MEDS: CLOPIDOGREL 75 MG TABLET PO SCH (09:43)
[2020-12-08] MEDS: FINASTERIDE 5 MG TAB PO SCH (09:43)
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
--- NOTE | 2020-12-08 11:23 | P.PN ---
Subjective Date of Service: 12/08/20 Primary Care Provider: [facility] doctor Chief Complaint: Pneumonia Patient has no complain. Patient is clinically stable. He denies any shortness of breath or cough. Physical Examination - Vital Signs Temperature: 98.7 F Blood Pressure: 126/73 Pulse: 101 Respirations: 30 Pulse Ox (%): 92 - Physical Exam General: Alert, In no apparent distress HEENT: Other (Oxygen by nasal cannula) Neck: JVD not distended Respiratory: Clear to auscultation bilaterally, Normal air movement Cardiovascular: No edema, Regular rate/rhythm, Normal S1 S2 Gastrointestinal: Soft and benign, Non-distended, No tenderness Musculoskeletal: No swelling, Other (No change in dry gangrene of right 1st and 2nd toes) Neurological: Normal strength at 5/5 x4 extr - Studies Medications List Reviewed: Yes Assessment And Plan - Current Problems (Diagnosis) (1) Acute respiratory failure with hypoxia Current Visit: Yes Status: Resolved (2) COPD exacerbation Onset Date: 08/13/18 Current Visit: Yes Status: Acute (3) Emphysematous bleb of lung Current Visit: Yes Status: Acute (4) Pneumonia Current Visit: Yes Status: Acute Qualifiers: Pneumonia type: due to unspecified organism Laterality: right (5) CAD (coronary artery disease) Onset Date: 08/13/18 Current Visit: No Status: Chronic Qualifiers: Coronary Disease-Associated Artery/Lesion type: [place] artery [place] vs. transplanted heart: [place] heart Associated angina: without angina Qualified Code(s): I25.10 - Atherosclerotic heart disease of [place] coronary artery without angina pectoris (6) Chronic systolic heart failure Current Visit: Yes Status: Chronic (7) Peripheral vascular disease Current Visit: Yes Status: Chronic (8) Pulmonary TB Current Visit: Yes Status: Acute (9) Chronic indwelling Ash[place] catheter Current Visit: Yes Status: Acute Physician Review Additional Text: Problem List Acute on chronic hypoxemic respiratory failure secondary to 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 -patient completed Levaquin and doxycycline. Quantiferon gold test is still pending. -bronchoalveolar lavage (11/24):-smear is positive for AFB, awaiting culture results -BAL culture now showing stenotrophomonas, sensitive only to levaquin, pt was on levaquin from 11/18 - 11/29, clinically doing well, discussed with ID/pulm- hold off on further antibiotics at this time -patient started on anti TB therapy 11/25. Monitor LFT periodically -ID recommend repeat AFB smear on 12/09, if negative, won't need respiratory isolation. -sputum induction on 12/09. -He diuresed well with Lasix early on in hospitalization, BP low/borderline. Lasix on hold, pt with low PO intake, and appeared compensated for CHF. -x-ray and CT negative for Osteomyelitis, Arterial doppler: Moderate distal peripheral arterial disease. Severe peripheral vascular disease involving the aorta, left iliac, common iliac, bilateral iliac and common femoral arteries. Patient will need follow up with vascular surgeon. -continue eliquis, plavix -fungal cystitis -patient completed Diflucan for ~5 days. Diflucan discontinued. Code: DNR Dispo: SW/CM consulted for LTAC. patient is agreeable Patient denied LTAC. He will disposition to SNF once it is determined he does not need respiratory isolation. Would benefit from vascular surgery eval as well for severe PVD and dry gangrene once off isolation.
[2020-12-08] MEDS: MELATONIN 3 MG TABLET PO PRN (22:09)
[2020-12-08] MEDS: MIRTAZAPINE 15 MG TAB PO SCH (22:11)
[2020-12-08] MEDS: ATORVASTATIN 40 MG TAB PO SCH (22:11)
[2020-12-09] MEDS: LEVOTHYROXINE SOD 0.075 MG TAB PO SCH (05:09)
[2020-12-09 06:36] LABS: Bilirubin Direct 0.1 mg/dL (0-0.2); Bilirubin Total 0.3 mg/dL (0.2-1.0); Protein, Total 5.4 g/dL (6.4-8.2)
[2020-12-09] MEDS: FINASTERIDE 5 MG TAB PO SCH ×2 (09:00→13:54)
[2020-12-09] MEDS: DOCUSATE NA 100 MG CAP PO SCH ×2 (09:00→20:06)
[2020-12-09] MEDS: HOME MED 1 EA UNK (Fluticasone/Umeclidin/Vilanter [Trelegy Ellipta 100-62.5-25] Blst.W.Dev IH SCH (09:00)
[2020-12-09] MEDS: TAMSULOSIN 0.4 MG SR CAP PO SCH ×2 (09:00→13:53)
[2020-12-09] MEDS: BUSPIRONE HCL 5 MG TABLET PO SCH ×3 (09:00→20:05)
[2020-12-09] MEDS: PANTOPRAZOLE 40MG TABLET PO SCH ×2 (09:00→13:54)
[2020-12-09] MEDS: MULTIVITAMIN TAB PO SCH (09:00)
[2020-12-09] MEDS: METOPROLOL TAR 25 MG TAB PO SCH ×3 (09:00→20:06)
[2020-12-09] MEDS: APIXABAN 2.5 MG TABLET PO SCH ×3 (09:00→20:04)
[2020-12-09] MEDS: ENSURE ENLIVE 237 ML CAN PO SCH ×2 (09:00→20:07)
[2020-12-09] MEDS: CLOPIDOGREL 75 MG TABLET PO SCH ×2 (09:00→13:54)
[2020-12-09] MEDS: DRONABINOL 2.5 MG PO SCH ×2 (09:00→20:08)
[2020-12-09] MEDS: allopurinoL 100 MG TAB PO SCH ×2 (09:00→13:54)
[2020-12-09] MEDS: SACUBITRIL/VALSARTAN 24/26 MG TAB PO SCH ×3 (09:00→20:05)
[2020-12-09] MEDS: LACTOBACILLUS/ACIDOPHILUS TAB PO SCH ×2 (09:00→20:07)
[2020-12-09] MEDS: IPRATROPIUM BROM 0.5MG/2.5ML NEB PRN (10:15)
[2020-12-09] MEDS: ARFORMOTEROL TARTRATE 15 MCG/2 ML VIAL.NEB NEB SCH ×2 (10:15→21:30)
[2020-12-09] MEDS: PYRAZINAMIDE 500 MG TAB PO SCH (10:25)
[2020-12-09] MEDS: ETHAMBUTOL HCL 400 MG TAB PO SCH (10:25)
[2020-12-09] MEDS: ISONIAZID 300 MG TAB PO SCH (10:25)
[2020-12-09] MEDS: PYRIDOXINE (VIT B6) 50 MG TAB PO SCH (10:25)
[2020-12-09] MEDS: NICOTINE 14 MG/PAT TD SCH (10:26)
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
[2020-12-09] MEDS: CODEINE 30MG/APAP 300MG TAB PO PRN (11:45)
[2020-12-09] MEDS: POVIDONE IODINE 10% TOP SCH (11:48)
--- NOTE | 2020-12-09 14:38 | P.PN ---
Subjective Date of Service: 12/09/20 Primary Care Provider: shelter doctor Chief Complaint: Pneumonia Patient has no complain. Patient refusing some of his medications today. He took the anti TB medications. Sputum induction for AFB was unsuccessful. Patient is not coughing at all, and could not cough up any sputum with induction. Patient is clinically stable. He denies any shortness of breath or cough. Physical Examination - Vital Signs Temperature: 96.7 F Blood Pressure: 114/60 Pulse: 62 Respirations: 19 Pulse Ox (%): 95 - Physical Exam General: Alert, In no apparent distress HEENT: Mucous membr. moist/pink Respiratory: Diminished Cardiovascular: No edema, Regular rate/rhythm, Normal S1 S2 Gastrointestinal: Soft and benign, Non-distended, No tenderness Musculoskeletal: No swelling Integumentary: Other (Dry gangrene of right 1st and 2nd toes unchanged) Neurological: Normal strength at 5/5 x4 extr, Cranial nerves 3-12 intact - Studies Medications List Reviewed: Yes Assessment And Plan - Current Problems (Diagnosis) (1) Acute respiratory failure with hypoxia Current Visit: Yes Status: Resolved (2) COPD exacerbation Onset Date: 08/13/18 Current Visit: Yes Status: Acute (3) Emphysematous bleb of lung Current Visit: Yes Status: Acute (4) Pneumonia Current Visit: Yes Status: Acute Qualifiers: Pneumonia type: due to unspecified organism Laterality: right (5) CAD (coronary artery disease) Onset Date: 08/13/18 Current Visit: No Status: Chronic Qualifiers: Coronary Disease-Associated Artery/Lesion type: [place] artery [place] vs. transplanted heart: [place] heart Associated angina: without angina Qualified Code(s): I25.10 - Atherosclerotic heart disease of [place] coronary artery without angina pectoris (6) Chronic systolic heart failure Current Visit: Yes Status: Chronic (7) Peripheral vascular disease Current Visit: Yes Status: Chronic (8) Pulmonary TB Current Visit: Yes Status: Acute (9) Chronic indwelling Ashford catheter Current Visit: Yes Status: Acute Physician Review: Patient Assessed, Agree with Above Assessment and Plan Physician Review Additional Text: Problem List Acute on chronic hypoxemic respiratory failure secondary to 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 -patient completed Levaquin and doxycycline. Quantiferon gold test is still pending. -bronchoalveolar lavage (11/24):-smear is positive for AFB, awaiting culture re sults -BAL culture now showing stenotrophomonas, sensitive only to levaquin, pt was on levaquin from 11/18 - 11/29, clinically doing well, discussed with ID/pulm- hold off on further antibiotics at this time -patient started on anti TB therapy 11/25. Monitor LFT periodically. LFTs have been stable. -ID recommend repeat AFB smear on 12/09, if negative, won't need respiratory isolation. -sputum induction 12/09 unsuccessful. -he has patient completed 2 weeks of anti-TB -patient may not need any more isolation given that he has completed 2 weeks of anti TB treatment and has no cough. -BP low/borderline. Lasix on hold, pt with low PO intake. He is compensated for CHF. -x-ray and CT negative for Osteomyelitis, Arterial doppler: Moderate distal peripheral arterial disease. Severe peripheral vascular disease involving the aorta, left iliac, common iliac, bilateral iliac and common femoral arteries. Patient will need follow up with vascular surgeon. -continue eliquis, plavix -fungal cystitis -patient completed Diflucan for ~5 days. Diflucan discontinued. Code: DNR Dispo: SW/CM consulted for LTAC. patient is agreeable Patient denied LTAC. He will disposition to SNF. Would benefit from vascular surgery eval as well for severe PVD and dry gangrene once off isolation.
[2020-12-09] MEDS: ATORVASTATIN 40 MG TAB PO SCH (20:04)
[2020-12-09] MEDS: MIRTAZAPINE 15 MG TAB PO SCH (20:07)
[2020-12-10] MEDS: ONDANSETRON 4 MG/2 ML VIAL IV PRN (04:51)
[2020-12-10] MEDS: CODEINE 30MG/APAP 300MG TAB PO PRN (04:52)
[2020-12-10] MEDS: GUAIFENESIN 600 MG SA TAB PO PRN (04:52)
[2020-12-10] MEDS: LEVOTHYROXINE SOD 0.075 MG TAB PO SCH (05:16)
[2020-12-10 06:21] LABS: Absolute Lymphocytes (CBC) 0.3 K/uL (0.7-4.9); Basophils % 0.9 % (0-1.3); Hematocrit 29.7 % (39.6-49.0); MPV 8.5 fL (7.6-11.3); RBC Red Blood Cell Count 3.13 M/uL (4.33-5.43)
[2020-12-10 06:39] LABS: BUN Blood Urea Nitrogen 20 mg/dL (7-18); Bicarbonate 35 mmol/L (21-32); Glucose Level 161 mg/dL (74-106); Sodium Level 144 mmol/L (136-145)
[2020-12-10 06:48] LABS: Potassium 4.6 mmol/L (3.5-5.1)
[2020-12-10] MEDS: PYRIDOXINE 100 MG PO SCH (08:16)
[2020-12-10] MEDS: PYRAZINAMIDE 500 MG TAB PO SCH (08:16)
[2020-12-10] MEDS: ETHAMBUTOL HCL 400 MG TAB PO SCH (08:16)
[2020-12-10] MEDS: ISONIAZID 300 MG TAB PO SCH (08:17)
[2020-12-10] MEDS: NICOTINE 14 MG/PAT TD SCH (08:17)
[2020-12-10] MEDS: DRONABINOL 2.5 MG PO SCH ×2 (08:18→21:00)
[2020-12-10] MEDS: POVIDONE IODINE 10% TOP SCH (08:18)
[2020-12-10] MEDS: HOME MED 1 EA UNK (Fluticasone/Umeclidin/Vilanter [Trelegy Ellipta 100-62.5-25] Blst.W.Dev IH SCH (08:18)
[2020-12-10] MEDS: ARFORMOTEROL TARTRATE 15 MCG/2 ML VIAL.NEB NEB SCH ×2 (08:20→20:07)
[2020-12-10] MEDS: METOPROLOL TAR 25 MG TAB PO SCH ×2 (09:00→21:00)
[2020-12-10] MEDS: SACUBITRIL/VALSARTAN 24/26 MG TAB PO SCH ×2 (09:00→21:47)
--- NOTE | 2020-12-10 09:16 | P.PN ---
Subjective Date of Service: 12/10/20 Primary Care Provider: alf doctor Chief Complaint: MAC penumonia Doign well weak .Dx with MAC Review of Systems Respiratory: Shortness of Breath Physical Examination - Vital Signs Temperature: 97.6 F Blood Pressure: 147/79 Pulse: 88 Respirations: 18 Pulse Ox (%): 98 - Physical Exam General: Alert Neck: Supple Respiratory: Clear to auscultation bilaterally, Diminished Cardiovascular: No edema, Regular rate/rhythm - Studies Medications List Reviewed: Yes Assessment & Plan - Problems (Diagnosis) (1) YESI (mycobacterium avium-intracellulare) Current Visit: Yes Status: Acute Plan: Doing well. Weak .Tx for MAc- rifampin, Zithromax, Ethambutol daily. Cw pred 10 mg daily, Resume BD. LAbs reviwed Discharge Plan: Home Physician Review: Patient Assessed, Agree with Above Assessment and Plan
[2020-12-10] MEDS: TAMSULOSIN 0.4 MG SR CAP PO SCH (09:54)
[2020-12-10] MEDS: PANTOPRAZOLE 40MG TABLET PO SCH (09:55)
[2020-12-10] MEDS: allopurinoL 100 MG TAB PO SCH (09:55)
[2020-12-10] MEDS: APIXABAN 2.5 MG TABLET PO SCH ×2 (09:55→21:48)
[2020-12-10] MEDS: CLOPIDOGREL 75 MG TABLET PO SCH (09:55)
[2020-12-10] MEDS: MULTIVITAMIN TAB PO SCH (09:55)
[2020-12-10] MEDS: FINASTERIDE 5 MG TAB PO SCH (09:55)
[2020-12-10] MEDS: BUSPIRONE HCL 5 MG TABLET PO SCH ×2 (09:55→21:51)
[2020-12-10] MEDS: LACTOBACILLUS/ACIDOPHILUS TAB PO SCH ×2 (09:55→21:48)
[2020-12-10] MEDS: DOCUSATE NA 100 MG CAP PO SCH ×2 (09:55→21:48)
[2020-12-10] MEDS: ENSURE ENLIVE 237 ML CAN PO SCH ×2 (09:57→21:53)
--- NOTE | 2020-12-10 11:33 | P.PN ---
Subjective Date of Service: 12/10/20 Primary Care Provider: halfway doctor Chief Complaint: MAC penumonia Patient has no complain. PCR on Sputum AFB culture results reviewed. Patient is negative for mycobacterium tuberculosis but positive for MAC. Patient is not coughing at all. Patient is clinically stable. He denies any shortness of breath. Physical Examination - Vital Signs Temperature: 97.6 F Blood Pressure: 147/79 Pulse: 88 Respirations: 18 Pulse Ox (%): 98 - Physical Exam General: Alert, In no apparent distress HEENT: Mucous membr. moist/pink Neck: JVD not distended Respiratory: Diminished (Bilateral) Cardiovascular: No edema, Regular rate/rhythm, Normal S1 S2 Gastrointestinal: Normal bowel sounds, Soft and benign, Non-distended Musculoskeletal: No swelling Neurological: Normal strength at 5/5 x4 extr - Studies Medications List Reviewed: Yes Assessment And Plan - Current Problems (Diagnosis) (1) Acute respiratory failure with hypoxia Current Visit: Yes Status: Resolved (2) COPD exacerbation Onset Date: 08/13/18 Current Visit: Yes Status: Acute (3) Emphysematous bleb of lung Current Visit: Yes Status: Acute (4) Pneumonia Current Visit: Yes Status: Acute Qualifiers: Pneumonia type: due to unspecified organism Laterality: right (5) CAD (coronary artery disease) Onset Date: 08/13/18 Current Visit: No Status: Chronic Qualifiers: Coronary Disease-Associated Artery/Lesion type: [place] artery [place] vs. transplanted heart: [place] heart Associated angina: without angina Qualified Code(s): I25.10 - Atherosclerotic heart disease of [place] coronary artery without angina pectoris (6) Chronic systolic heart failure Current Visit: Yes Status: Chronic (7) Peripheral vascular disease Current Visit: Yes Status: Chronic (8) Chronic indwelling Ash[place] catheter Current Visit: Yes Status: Acute (9) YESI (mycobacterium avium-intracellulare) Current Visit: Yes Status: Acute Physician Review Additional Text: Problem List Acute on chronic hypoxemic respiratory failure secondary to 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 -patient completed Levaquin and doxycycline. Quantiferon gold test is still pending. -bronchoalveolar lavage (11/24):-smear is positive for AFB, Culture postive for MAC. -BAL culture now showing stenotrophomonas, sensitive only to levaquin, pt was on levaquin from 11/18 - 11/29, clinically doing well, discussed with ID/pulm- hold off on further antibiotics at this time -pulmonary input appreciated. Antibiotics changed to rifampin, Zithromax and ethambutol. -no respiratory isolation needed. -Monitor LFT periodically. LFTs have been stable. -sputum induction 12/09 unsuccessful. -he has patient completed 2 weeks of anti-mycobacterium. -BP low/borderline. Lasix on hold, pt with low PO intake. He is compensated for CHF. -x-ray and CT negative for Osteomyelitis, Arterial doppler: Moderate distal peripheral arterial disease. Severe peripheral vascular disease involving the aorta, left iliac, common iliac, bilateral iliac and common femoral arteries. Patient will need follow up with vascular surgeon. -continue eliquis, plavix -fungal cystitis -patient completed Diflucan for ~5 days. Diflucan discontinued. Code: DNR Dispo: SW/CM consulted for LTAC. patient is agreeable Patient denied LTAC. Possibly Dc to SNF on Tuesday 12/12. Would benefit from vascular surgery eval as well for severe PVD and dry gangrene once off isolation.
[2020-12-10] MEDS: ATORVASTATIN 40 MG TAB PO SCH (21:48)
[2020-12-10] MEDS: MIRTAZAPINE 15 MG TAB PO SCH (21:50)
[2020-12-11] MEDS: GUAIFENESIN 600 MG SA TAB PO PRN (03:50)
[2020-12-11] MEDS: ONDANSETRON 4 MG/2 ML VIAL IV PRN (03:50)
[2020-12-11] MEDS: LEVOTHYROXINE SOD 0.075 MG TAB PO SCH (05:23)
[2020-12-11] MEDS: DOCUSATE NA 100 MG CAP PO SCH ×2 (09:00→22:41)
[2020-12-11] MEDS: SACUBITRIL/VALSARTAN 24/26 MG TAB PO SCH ×3 (09:00→22:41)
[2020-12-11] MEDS: PYRIDOXINE 100 MG PO SCH (09:00)
[2020-12-11] MEDS: APIXABAN 2.5 MG TABLET PO SCH ×3 (09:00→22:42)
[2020-12-11] MEDS: PANTOPRAZOLE 40MG TABLET PO SCH (09:00)
[2020-12-11] MEDS: ETHAMBUTOL HCL 400 MG TAB PO SCH (09:00)
[2020-12-11] MEDS: METOPROLOL TAR 25 MG TAB PO SCH ×3 (09:00→22:42)
[2020-12-11] MEDS: CLOPIDOGREL 75 MG TABLET PO SCH (09:00)
[2020-12-11] MEDS: BUSPIRONE HCL 5 MG TABLET PO SCH ×2 (09:00→22:41)
[2020-12-11] MEDS: ENSURE ENLIVE 237 ML CAN PO SCH ×2 (09:00→22:43)
[2020-12-11] MEDS: allopurinoL 100 MG TAB PO SCH (09:00)
[2020-12-11] MEDS: FINASTERIDE 5 MG TAB PO SCH (09:00)
[2020-12-11] MEDS: DRONABINOL 2.5 MG PO SCH ×2 (09:00→21:00)
[2020-12-11] MEDS: TAMSULOSIN 0.4 MG SR CAP PO SCH (09:00)
[2020-12-11] MEDS: MULTIVITAMIN TAB PO SCH (09:00)
[2020-12-11] MEDS: LACTOBACILLUS/ACIDOPHILUS TAB PO SCH ×2 (09:00→22:41)
[2020-12-11] MEDS: HOME MED 1 EA UNK (Fluticasone/Umeclidin/Vilanter [Trelegy Ellipta 100-62.5-25] Blst.W.Dev IH SCH (09:00)
[2020-12-11] MEDS: ARFORMOTEROL TARTRATE 15 MCG/2 ML VIAL.NEB NEB SCH ×2 (09:20→20:25)
[2020-12-11] MEDS: POVIDONE IODINE 10% TOP SCH (13:26)
[2020-12-11] MEDS: NICOTINE 14 MG/PAT TD SCH (13:26)
--- NOTE | 2020-12-11 14:24 | P.PN ---
Subjective Date of Service: 12/11/20 Primary Care Provider: halfway doctor Chief Complaint: MAC tayler Patient has no complain. Patient more sleepy over the last couple of days. He is refusing medications. He also refused arterial blood gas. He denies any shortness of breath. Physical Examination - Vital Signs Temperature: 97.6 F Blood Pressure: 111/54 Pulse: 75 Respirations: 17 Pulse Ox (%): 100 - Physical Exam General: In no apparent distress, Other (Sleeping but easily arousable.) HEENT: Mucous membr. moist/pink Neck: Supple Respiratory: Diminished, Crackles/rales (On the right) Cardiovascular: No edema, Regular rate/rhythm, Normal S1 S2 Gastrointestinal: Normal bowel sounds, Soft and benign, Non-distended, No tenderness Integumentary: Other (Dry gangrene on right 1st and 2nd toes unchanged.) Neurological: Normal strength at 5/5 x4 extr - Studies Medications List Reviewed: Yes Assessment And Plan - Current Problems (Diagnosis) (1) Acute respiratory failure with hypoxia Current Visit: Yes Status: Resolved (2) COPD exacerbation Onset Date: 08/13/18 Current Visit: Yes Status: Acute (3) Emphysematous bleb of lung Current Visit: Yes Status: Acute (4) Pneumonia Current Visit: Yes Status: Acute Qualifiers: Pneumonia type: due to unspecified organism Laterality: right (5) CAD (coronary artery disease) Onset Date: 08/13/18 Current Visit: No Status: Chronic Qualifiers: Coronary Disease-Associated Artery/Lesion type: [place] artery [place] vs. transplanted heart: [place] heart Associated angina: without angina Qualified Code(s): I25.10 - Atherosclerotic heart disease of [place] coronary artery without angina pectoris (6) Chronic systolic heart failure Current Visit: Yes Status: Chronic (7) Peripheral vascular disease Current Visit: Yes Status: Chronic (8) Chronic indwelling Ash[place] catheter Current Visit: Yes Status: Acute (9) YESI (mycobacterium avium-intracellulare) Current Visit: Yes Status: Acute Physician Review: Patient Assessed, Agree with Above Assessment and Plan Physician Review Additional Text: Problem List Acute on chronic hypoxemic respiratory failure secondary to 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 -patient completed Levaquin and doxycycline. Quantiferon gold test is still pending. -bronchoalveolar lavage (11/24):-smear is positive for AFB, Culture postive for MAC. -BAL culture also growing stenotrophomonas, sensitive only to levaquin, pt was on levaquin from 11/18 - 11/29, clinically doing well, discussed with ID/pulm- hold off on further antibiotics at this time -Antibiotics changed to rifampin, Zithromax and ethambutol for MAC by pulmonary. -no respiratory isolation needed. -LFTs have been stable. Monitor LFT periodically. -sputum induction 12/09 d. unsuccessful. -he has patient completed 2 weeks of anti-mycobacterium. -BP low/borderline. Lasix on hold, pt with low PO intake. He is compensated for CHF. -x-ray and CT negative for Osteomyelitis, Arterial doppler: Moderate distal peripheral arterial disease. Severe peripheral vascular disease involving the aorta, left iliac, common iliac, bilateral iliac and common femoral arteries. Patient will need follow up with vascular surgeon. -continue eliquis, plavix -fungal cystitis -patient completed Diflucan for ~5 days. Diflucan discontinued. -patient decline in to take his medications. Code: DNR Dispo: SW/CM consulted for LTAC. patient is agreeable Patient denied LTAC. Dc to SNF on Tuesday 12/12. Would benefit from vascular surgery eval as well for severe PVD and dry gangrene once off isolation.
[2020-12-11] MEDS: ATORVASTATIN 40 MG TAB PO SCH (22:42)
[2020-12-11] MEDS: MIRTAZAPINE 15 MG TAB PO SCH (22:43)
[2020-12-12] MEDS: MELATONIN 3 MG TABLET PO PRN (00:35)
[2020-12-12] MEDS: CODEINE 30MG/APAP 300MG TAB PO PRN (00:42)
[2020-12-12 04:43] VITALS: O2SAT 97
[2020-12-12] MEDS: LEVOTHYROXINE SOD 0.075 MG TAB PO SCH (06:00)
[2020-12-12] MEDS: ARFORMOTEROL TARTRATE 15 MCG/2 ML VIAL.NEB NEB SCH (08:00)
[2020-12-12] MEDS: POVIDONE IODINE 10% TOP SCH (09:00)
[2020-12-12] MEDS: PYRIDOXINE 100 MG PO SCH (09:00)
[2020-12-12] MEDS: DRONABINOL 2.5 MG PO SCH (09:00)
[2020-12-12] MEDS: SACUBITRIL/VALSARTAN 24/26 MG TAB PO SCH (09:00)
[2020-12-12] MEDS: ENSURE ENLIVE 237 ML CAN PO SCH (09:00)
[2020-12-12] MEDS: HOME MED 1 EA UNK (Fluticasone/Umeclidin/Vilanter [Trelegy Ellipta 100-62.5-25] Blst.W.Dev IH SCH (09:00)
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
[2020-12-12] MEDS ORDERED: ONDANSETRON 4 MG/2 ML VIAL IV PRN (12:07)
[2020-12-12] MEDS: DOCUSATE NA 100 MG CAP PO SCH (12:35)
[2020-12-12] MEDS: PANTOPRAZOLE 40MG TABLET PO SCH (12:35)
[2020-12-12] MEDS: allopurinoL 100 MG TAB PO SCH (12:36)
[2020-12-12] MEDS: METOPROLOL TAR 25 MG TAB PO SCH (12:37)
[2020-12-12] MEDS: BUSPIRONE HCL 5 MG TABLET PO SCH (12:38)
[2020-12-12] MEDS: LACTOBACILLUS/ACIDOPHILUS TAB PO SCH (12:38)
[2020-12-12] MEDS: TAMSULOSIN 0.4 MG SR CAP PO SCH (12:39)
[2020-12-12] MEDS: MULTIVITAMIN TAB PO SCH (12:39)
[2020-12-12] MEDS: FINASTERIDE 5 MG TAB PO SCH (12:40)
[2020-12-12] MEDS: CLOPIDOGREL 75 MG TABLET PO SCH (12:40)
[2020-12-12] MEDS: APIXABAN 2.5 MG TABLET PO SCH (12:41)
[2020-12-12] MEDS: ETHAMBUTOL HCL 400 MG TAB PO SCH (12:41)
[2020-12-12] MEDS: NICOTINE 14 MG/PAT TD SCH (12:43)
[2020-12-12 13:15] VITALS: BP 133/61; TEMP 98.4
[2020-12-13] MEDS ORDERED: AZITHROMYCIN 250 MG TAB PO SCH (09:00)
--- NOTE | 2020-12-15 21:55 | P.OP ---
Date of Service: 11/24/20 (RUL BAL) Findings and Operative Technique Age 70 AW RUL cavitary penumonia. Bronch R/O TB After obtaining and informed consent pt was premeidcated by anethesia. RUL BAL performed. PT tolerated procedure well. No biopsies were done. No hypoxemia or hypotension
== END 2020-12-12 14:56 | DRG 189 ==
LOC: ER 19:56 → 2ND 23:43 → OBSVTOIN 23:43 → 2ND 11-19 13:36
PROVIDERS: ADMIT Hospitalist; ATTEND Internal Medicine
PROC: 5A09557 Assistance with Respiratory Ventilation, Greater than 96 Consecutive Hours, Continuous Positive Airway Pressure (ICD-10-PCS; principal; 2020-11-17)
PROC: 0B9C8ZX Drainage of Right Upper Lung Lobe, Via Natural or Artificial Opening Endoscopic, Diagnostic (ICD-10-PCS; 2020-12-12)
DX: J96.21 Acute and chronic respiratory failure with hypoxia (principal); I50.23 Acute on chronic systolic (congestive) heart failure; J18.9 Pneumonia, unspecified organism; A31.2 Disseminated mycobacterium avium-intracellulare complex (DMAC); E44.0 Moderate protein-calorie malnutrition; Z68.1 Body mass index [BMI] 19.9 or less, adult; E84.9 Cystic fibrosis, unspecified; I77.2 Rupture of artery; I74.5 Embolism and thrombosis of iliac artery; Q25.1 Coarctation of aorta; I96 Gangrene, not elsewhere classified; N30.01 Acute cystitis with hematuria; J90 Pleural effusion, not elsewhere classified; A15.0 Tuberculosis of lung; J43.9 Emphysema, unspecified; I11.0 Hypertensive heart disease with heart failure; L89.151 Pressure ulcer of sacral region, stage 1; E88.09 Other disorders of plasma-protein metabolism, not elsewhere classified; I48.91 Unspecified atrial fibrillation; E78.5 Hyperlipidemia, unspecified; D64.9 Anemia, unspecified; E03.9 Hypothyroidism, unspecified; F41.9 Anxiety disorder, unspecified; E83.51 Hypocalcemia; I25.10 Atherosclerotic heart disease of native coronary artery without angina pectoris; Z95.1 Presence of aortocoronary bypass graft; Z95.5 Presence of coronary angioplasty implant and graft; Z79.01 Long term (current) use of anticoagulants; Z95.810 Presence of automatic (implantable) cardiac defibrillator; Z89.512 Acquired absence of left leg below knee; Z87.891 Personal history of nicotine dependence; Z88.8 Allergy status to other drugs, medicaments and biological substances; Z79.890 Hormone replacement therapy; Z79.02 Long term (current) use of antithrombotics/antiplatelets; Z79.899 Other long term (current) drug therapy; Z66 Do not resuscitate; Z79.52 Long term (current) use of systemic steroids; Z20.822 Contact with and (suspected) exposure to COVID-19
CPT/HCPCS: 36415; 71045; 71250; 71275; 73700; 74175; 76000; 80048; 80053; 80076; 81003; 81015; 82805; 82947; 83605; 83735; 83880; 84100; 84134; 84145; 84439; 84443; 84484; 85025; 85610; 85652; 86140; 86850; 86900; 86901; 87015; 87040; 87070; 87077; 87086; 87088; 87102; 87116; 87186; 87206; 88108; 88305; 88312; 92610; 93005; 93306; 93925; 94640; 94660; 94760; 94762; 97161; 99285; J0696; J1160; J1450; J1940; J2270; J2370; J2405; J2543; J2704; J2930; J3475; J7030; J7050; J7512; J7605; J7606; P9047; Q9967; U0003